=== PATIENT | female | born 1970 | race Two or more races ===

== ENCOUNTER 2021-12-23 13:54 | Inpatient (IN) | END 2022-03-13 23:59 | disposition still patient (30) | DRG 130 | DX: J96.11 Chronic respiratory failure with hypoxia (principal); E43 Unspecified severe protein-calorie malnutrition; G12.21 Amyotrophic lateral sclerosis; R53.2 Functional quadriplegia; D68.59 Other primary thrombophilia; J96.12 Chronic respiratory failure with hypercapnia; B96.20 Unspecified Escherichia coli [E. coli] as the cause of diseases classified elsewhere; B96.4 Proteus (mirabilis) (morganii) as the cause of diseases classified elsewhere; B96.89 Other specified bacterial agents as the cause of diseases classified elsewhere; F41.0 Panic disorder [episodic paroxysmal anxiety]; I51.7 Cardiomegaly; L60.0 Ingrowing nail; M21.372 Foot drop, left foot; M21.371 Foot drop, right foot; N31.9 Neuromuscular dysfunction of bladder, unspecified; N39.0 Urinary tract infection, site not specified; R13.10 Dysphagia, unspecified; R62.7 Adult failure to thrive; Z20.822 Contact with and (suspected) exposure to COVID-19; Z68.1 Body mass index [BMI] 19.9 or less, adult; Z82.49 Family history of ischemic heart disease and other diseases of the circulatory system; Z83.3 Family history of diabetes mellitus; Z86.718 Personal history of other venous thrombosis and embolism; Z93.0 Tracheostomy status; Z93.1 Gastrostomy status ==

== ENCOUNTER 2022-03-14 | Inpatient (IN) | payer OTHER ==
[~2022-03-14] VITALS: Ht 157.5 cm; Wt 45.8 kg
[2022-03-16] MEDS: IPRATROPIUM BROMIDE 0.5 MG/2.5 ML NEBU NEB SCH ×3 (07:25→19:10)
[2022-03-16] MEDS ORDERED: FLEET ENEMA 133 ML BOTTLE RC PRN (08:30)
[2022-03-16] MEDS ORDERED: HYDROGEN PEROXIDE 3% 118 ML BOTTLE TP PRN (08:30)
[2022-03-16] MEDS ORDERED: ACETAMINOPHEN 650 MG/20 ML UDC- SA PATIENTS-FEVER ONLY GT PRN (08:30)
[2022-03-16] MEDS ORDERED: MAGNESIUM HYDROXIDE 30 ML LIQUID UDC GT PRN (08:30)
[2022-03-16] MEDS ORDERED: BISACODYL 10 MG SUPP.RECT RC PRN (08:30)
[2022-03-16] MEDS: FLUTICASONE PROP NASAL SPRAY 16 GM BOTTLE NS SCH (09:00)
[2022-03-16] MEDS: OLOPATADINE 0.1% OPHT DROP 5 ML BOTTLE EACHEYE SCH ×2 (09:00→17:24)
[2022-03-16] MEDS: DICLOFENAC 1% GEL TP SCH ×4 (09:00→21:32)
[2022-03-16] MEDS: NEOMY/BACITRA/POLYMYXIN B OINT UD PACKET TP SCH ×2 (09:00→21:32)
[2022-03-16] MEDS: ENOXAPARIN SODIUM 40 MG/0.4 ML DISP.SYRIN SQ SCH (09:00)
[2022-03-16] MEDS: POLYVINYL ALCOHOL OPHT DROPS 15 ML BOTTLE EACHEYE SCH ×4 (09:00→21:28)
[2022-03-16] MEDS: REMEDY ESSENTIAL ZINC PASTE 113 GM TP SCH ×2 (09:00→21:32)
[2022-03-16] MEDS: HYDROCODONE/APAP 10-325 MG TABLET GT PRN ×2 (09:00→18:05)
[2022-03-16] MEDS: CHLORHEXIDINE GLUCONATE 15 ML MOUTHWASH MM SCH ×2 (09:00→17:25)
[2022-03-16] MEDS: DOCUSATE SODIUM 100 MG/10 ML LIQUID UDC GT SCH ×2 (09:00→17:25)
[2022-03-16] MEDS: FLUOXETINE HCL 20 MG CAPSULE GT SCH (09:00)
[2022-03-16] MEDS: BACLOFEN 20 MG TABLET GT SCH ×3 (09:00→17:25)
[2022-03-16] MEDS: HYDROGEN PEROXIDE 3% 118 ML BOTTLE TP SCH ×2 (09:16→21:45)
[2022-03-16] MEDS: JEVITY 1.2 1000 ML LIQUID GT PRN (13:06)
[2022-03-16] MEDS ORDERED: IPRATROPIUM BROMIDE 0.5 MG/2.5 ML NEBU NEB SCH (13:30)
[2022-03-16] MEDS: GABAPENTIN 300 MG/6 ML GT SCH ×2 (14:49→21:30)
[2022-03-16] MEDS: RILUZOLE 50 MG GT SCH (17:25)
[2022-03-16] MEDS: hydrOXYzine HCL 25 MG TABLET GT SCH (21:28)
[2022-03-16] MEDS: MELATONIN 3 MG TABLET GT SCH (21:30)
[2022-03-16] MEDS: LORAZEPAM 1 MG TABLET GT PRN (22:00)
[2022-03-17] MEDS: IPRATROPIUM BROMIDE 0.5 MG/2.5 ML NEBU NEB SCH ×4 (00:34→19:38)
[2022-03-17] MEDS: GABAPENTIN 300 MG/6 ML GT SCH ×3 (05:48→21:00)
[2022-03-17] MEDS: OMEPRAZOLE 20 MG CAPSULE.DR GT SCH (05:48)
[2022-03-17] MEDS: RILUZOLE 50 MG GT SCH ×2 (05:48→18:57)
[2022-03-17] MEDS: ENOXAPARIN SODIUM 40 MG/0.4 ML DISP.SYRIN SQ SCH (09:00)
[2022-03-17] MEDS: DICLOFENAC 1% GEL TP SCH ×4 (09:00→21:00)
[2022-03-17] MEDS: FLUTICASONE PROP NASAL SPRAY 16 GM BOTTLE NS SCH (09:00)
[2022-03-17] MEDS: BACLOFEN 20 MG TABLET GT SCH ×3 (09:00→17:00)
[2022-03-17] MEDS: HYDROGEN PEROXIDE 3% 118 ML BOTTLE TP SCH ×2 (09:00→19:38)
[2022-03-17] MEDS: DOCUSATE SODIUM 100 MG/10 ML LIQUID UDC GT SCH ×2 (09:00→17:00)
[2022-03-17] MEDS: NEOMY/BACITRA/POLYMYXIN B OINT UD PACKET TP SCH ×2 (09:00→21:00)
[2022-03-17] MEDS: FLUOXETINE HCL 20 MG CAPSULE GT SCH (09:00)
[2022-03-17] MEDS: REMEDY ESSENTIAL ZINC PASTE 113 GM TP SCH ×2 (09:00→21:00)
[2022-03-17] MEDS: CHLORHEXIDINE GLUCONATE 15 ML MOUTHWASH MM SCH ×2 (09:00→17:00)
[2022-03-17] MEDS: POLYVINYL ALCOHOL OPHT DROPS 15 ML BOTTLE EACHEYE SCH ×4 (09:00→21:00)
[2022-03-17] MEDS: OLOPATADINE 0.1% OPHT DROP 5 ML BOTTLE EACHEYE SCH ×2 (10:00→17:00)
[2022-03-17] MEDS: HYDROCODONE/APAP 10-325 MG TABLET GT PRN (10:34)
[2022-03-17] MEDS: hydrOXYzine HCL 25 MG TABLET GT SCH (21:00)
[2022-03-17] MEDS: MELATONIN 3 MG TABLET GT SCH (21:00)
[2022-03-17] MEDS: LORAZEPAM 1 MG TABLET GT PRN (22:00)
[2022-03-18] MEDS: IPRATROPIUM BROMIDE 0.5 MG/2.5 ML NEBU NEB SCH ×4 (01:05→19:26)
[2022-03-18] MEDS: RILUZOLE 50 MG GT SCH ×2 (06:45→18:01)
[2022-03-18] MEDS: OMEPRAZOLE 20 MG CAPSULE.DR GT SCH (06:45)
[2022-03-18] MEDS: GABAPENTIN 300 MG/6 ML GT SCH ×3 (06:45→21:35)
[2022-03-18 07:16] LABS: HEMATOCRIT 34.6 % (31.2-41.9); MEAN CORPUSCULAR HEMOGLOBIN 31.9 uug (24.7-32.8); MEAN CORPUSCULAR VOLUME 93.6 fL (75.5-95.3); PLATELET COUNT (AUTO) 227 K/uL (179-408)
[2022-03-18 07:36] LABS: THYROID STIMULATING HORMONE 1.705 mIU/mL (0.358-3.740)
[2022-03-18 07:55] LABS: ALANINE AMINOTRANSFERASE 33 U/L (14-59); ALKALINE PHOSPHATASE 96 U/L (50-136); ASPARTATE AMINOTRANSFERASE 27 U/L (15-37); BILIRUBIN,TOTAL 0.4 mg/dL (0.2-1.0); CARBON DIOXIDE 34 mmol/L (21-32); CHLORIDE 98 mmol/L (98-107); CHOLESTEROL 236 mg/dL (<200); CREATININE 0.4 mg/dL (0.6-1.3); GLUCOSE 107 mg/dL (74-106); HDL CHOLESTEROL 49 mg/dL (40-60); MAGNESIUM 2.2 mg/dL (1.8-2.4); PHOSPHOROUS 4.5 mg/dL (2.5-4.9); POTASSIUM 3.9 mmol/L (3.5-5.1); TOTAL PROTEIN, SERUM 7.3 g/dL (6.4-8.2); TRIGLYCERIDES 267 MG/DL (30-150); UREA NITROGEN, BLOOD 15 mg/dL (7-18)
[2022-03-18] MEDS: POLYVINYL ALCOHOL OPHT DROPS 15 ML BOTTLE EACHEYE SCH ×4 (09:41→21:35)
[2022-03-18] MEDS: FLUTICASONE PROP NASAL SPRAY 16 GM BOTTLE NS SCH (09:42)
[2022-03-18] MEDS: OLOPATADINE 0.1% OPHT DROP 5 ML BOTTLE EACHEYE SCH ×2 (09:42→17:59)
[2022-03-18] MEDS: DOCUSATE SODIUM 100 MG/10 ML LIQUID UDC GT SCH ×2 (09:42→17:59)
[2022-03-18] MEDS: BACLOFEN 20 MG TABLET GT SCH ×3 (09:42→17:00)
[2022-03-18] MEDS: FLUOXETINE HCL 20 MG CAPSULE GT SCH (09:42)
[2022-03-18] MEDS: CHLORHEXIDINE GLUCONATE 15 ML MOUTHWASH MM SCH ×2 (09:42→17:00)
[2022-03-18] MEDS: NEOMY/BACITRA/POLYMYXIN B OINT UD PACKET TP SCH ×2 (09:43→21:35)
[2022-03-18] MEDS: REMEDY ESSENTIAL ZINC PASTE 113 GM TP SCH ×2 (09:43→21:35)
[2022-03-18] MEDS: ENOXAPARIN SODIUM 40 MG/0.4 ML DISP.SYRIN SQ SCH (09:43)
[2022-03-18] MEDS: DICLOFENAC 1% GEL TP SCH ×4 (09:43→21:35)
[2022-03-18] MEDS: HYDROGEN PEROXIDE 3% 118 ML BOTTLE TP SCH ×2 (09:53→21:40)
[2022-03-18] MEDS: HYDROCODONE/APAP 10-325 MG TABLET GT PRN (18:02)
[2022-03-18] MEDS: JEVITY 1.2 1000 ML LIQUID GT PRN (21:33)
[2022-03-18] MEDS: LORAZEPAM 1 MG TABLET GT PRN (21:35)
[2022-03-18] MEDS: hydrOXYzine HCL 25 MG TABLET GT SCH (21:35)
[2022-03-18] MEDS: MELATONIN 3 MG TABLET GT SCH (21:35)
[2022-03-19] MEDS: IPRATROPIUM BROMIDE 0.5 MG/2.5 ML NEBU NEB SCH ×4 (01:30→19:24)
[2022-03-19] MEDS: OMEPRAZOLE 20 MG CAPSULE.DR GT SCH (05:37)
[2022-03-19] MEDS: RILUZOLE 50 MG GT SCH ×2 (05:37→17:31)
[2022-03-19] MEDS: GABAPENTIN 300 MG/6 ML GT SCH ×3 (05:37→21:53)
[2022-03-19] MEDS: BACLOFEN 20 MG TABLET GT SCH ×3 (08:29→17:30)
[2022-03-19] MEDS: OLOPATADINE 0.1% OPHT DROP 5 ML BOTTLE EACHEYE SCH ×2 (08:29→17:30)
[2022-03-19] MEDS: POLYVINYL ALCOHOL OPHT DROPS 15 ML BOTTLE EACHEYE SCH ×4 (08:29→21:53)
[2022-03-19] MEDS: FLUOXETINE HCL 20 MG CAPSULE GT SCH (08:29)
[2022-03-19] MEDS: DOCUSATE SODIUM 100 MG/10 ML LIQUID UDC GT SCH ×2 (08:29→17:00)
[2022-03-19] MEDS: HYDROCODONE/APAP 10-325 MG TABLET GT PRN ×2 (08:30→17:35)
[2022-03-19] MEDS: FLUTICASONE PROP NASAL SPRAY 16 GM BOTTLE NS SCH (08:30)
[2022-03-19] MEDS: ENOXAPARIN SODIUM 40 MG/0.4 ML DISP.SYRIN SQ SCH (08:32)
[2022-03-19] MEDS: NEOMY/BACITRA/POLYMYXIN B OINT UD PACKET TP SCH ×2 (09:00→21:53)
[2022-03-19] MEDS: REMEDY ESSENTIAL ZINC PASTE 113 GM TP SCH ×2 (09:00→21:53)
[2022-03-19] MEDS: CHLORHEXIDINE GLUCONATE 15 ML MOUTHWASH MM SCH ×2 (09:00→17:30)
[2022-03-19] MEDS: DICLOFENAC 1% GEL TP SCH ×4 (09:00→21:53)
[2022-03-19] MEDS: HYDROGEN PEROXIDE 3% 118 ML BOTTLE TP SCH ×2 (09:17→21:55)
[2022-03-19] MEDS: LORAZEPAM 1 MG TABLET GT PRN (21:53)
[2022-03-19] MEDS: MELATONIN 3 MG TABLET GT SCH (21:53)
[2022-03-19] MEDS: JEVITY 1.2 1000 ML LIQUID GT PRN (21:53)
[2022-03-19] MEDS: hydrOXYzine HCL 25 MG TABLET GT SCH (21:53)
[2022-03-20] MEDS: IPRATROPIUM BROMIDE 0.5 MG/2.5 ML NEBU NEB SCH ×4 (01:49→19:23)
[2022-03-20] MEDS: GABAPENTIN 300 MG/6 ML GT SCH ×3 (05:19→21:45)
[2022-03-20] MEDS: RILUZOLE 50 MG GT SCH ×2 (05:19→17:43)
[2022-03-20] MEDS: OMEPRAZOLE 20 MG CAPSULE.DR GT SCH (05:19)
[2022-03-20] MEDS: HYDROGEN PEROXIDE 3% 118 ML BOTTLE TP SCH ×2 (08:46→21:57)
[2022-03-20] MEDS: POLYVINYL ALCOHOL OPHT DROPS 15 ML BOTTLE EACHEYE SCH ×4 (09:06→21:39)
[2022-03-20] MEDS: HYDROCODONE/APAP 10-325 MG TABLET GT PRN ×2 (09:10→18:56)
[2022-03-20] MEDS: OLOPATADINE 0.1% OPHT DROP 5 ML BOTTLE EACHEYE SCH ×2 (09:10→17:40)
[2022-03-20] MEDS: DOCUSATE SODIUM 100 MG/10 ML LIQUID UDC GT SCH ×2 (09:11→17:00)
[2022-03-20] MEDS: FLUOXETINE HCL 20 MG CAPSULE GT SCH (09:11)
[2022-03-20] MEDS: CHLORHEXIDINE GLUCONATE 15 ML MOUTHWASH MM SCH ×2 (09:11→17:41)
[2022-03-20] MEDS: BACLOFEN 20 MG TABLET GT SCH ×3 (09:11→17:41)
[2022-03-20] MEDS: FLUTICASONE PROP NASAL SPRAY 16 GM BOTTLE NS SCH (09:12)
[2022-03-20] MEDS: ENOXAPARIN SODIUM 40 MG/0.4 ML DISP.SYRIN SQ SCH (09:15)
[2022-03-20] MEDS: REMEDY ESSENTIAL ZINC PASTE 113 GM TP SCH ×2 (09:16→21:45)
[2022-03-20] MEDS: NEOMY/BACITRA/POLYMYXIN B OINT UD PACKET TP SCH ×2 (09:16→21:45)
[2022-03-20] MEDS: DICLOFENAC 1% GEL TP SCH ×4 (09:16→21:45)
[2022-03-20] MEDS: JEVITY 1.2 1000 ML LIQUID GT PRN (18:12)
[2022-03-20] MEDS: hydrOXYzine HCL 25 MG TABLET GT SCH (21:40)
[2022-03-20] MEDS: MELATONIN 3 MG TABLET GT SCH (21:45)
[2022-03-21] MEDS: IPRATROPIUM BROMIDE 0.5 MG/2.5 ML NEBU NEB SCH ×4 (00:36→13:35)
[2022-03-21] MEDS: OMEPRAZOLE 20 MG CAPSULE.DR GT SCH (05:54)
[2022-03-21] MEDS: RILUZOLE 50 MG GT SCH ×2 (05:54→17:56)
[2022-03-21] MEDS: GABAPENTIN 300 MG/6 ML GT SCH ×3 (05:54→21:00)
[2022-03-21] MEDS: HYDROGEN PEROXIDE 3% 118 ML BOTTLE TP SCH ×2 (09:29→21:00)
[2022-03-21] MEDS: OLOPATADINE 0.1% OPHT DROP 5 ML BOTTLE EACHEYE SCH ×2 (09:35→17:56)
[2022-03-21] MEDS: CHLORHEXIDINE GLUCONATE 15 ML MOUTHWASH MM SCH ×2 (09:35→17:56)
[2022-03-21] MEDS: BACLOFEN 20 MG TABLET GT SCH ×3 (09:35→17:56)
[2022-03-21] MEDS: DOCUSATE SODIUM 100 MG/10 ML LIQUID UDC GT SCH ×2 (09:35→17:56)
[2022-03-21] MEDS: FLUOXETINE HCL 20 MG CAPSULE GT SCH (09:35)
[2022-03-21] MEDS: POLYVINYL ALCOHOL OPHT DROPS 15 ML BOTTLE EACHEYE SCH ×4 (09:35→21:00)
[2022-03-21] MEDS: FLUTICASONE PROP NASAL SPRAY 16 GM BOTTLE NS SCH (09:35)
[2022-03-21] MEDS: REMEDY ESSENTIAL ZINC PASTE 113 GM TP SCH ×2 (09:36→21:00)
[2022-03-21] MEDS: DICLOFENAC 1% GEL TP SCH ×4 (09:36→21:00)
[2022-03-21] MEDS: ENOXAPARIN SODIUM 40 MG/0.4 ML DISP.SYRIN SQ SCH (09:36)
[2022-03-21] MEDS: NEOMY/BACITRA/POLYMYXIN B OINT UD PACKET TP SCH ×2 (09:36→21:00)
[2022-03-21] MEDS: HYDROCODONE/APAP 10-325 MG TABLET GT PRN ×2 (09:43→17:56)
[2022-03-21] MEDS: JEVITY 1.2 1000 ML LIQUID GT PRN (16:25)
[2022-03-21] MEDS: MELATONIN 3 MG TABLET GT SCH (21:00)
[2022-03-21] MEDS: hydrOXYzine HCL 25 MG TABLET GT SCH (21:00)
[2022-03-21] MEDS: LORAZEPAM 1 MG TABLET GT PRN (23:18)
[2022-03-22] MEDS: IPRATROPIUM BROMIDE 0.5 MG/2.5 ML NEBU NEB SCH ×4 (01:55→19:37)
[2022-03-22] MEDS: GABAPENTIN 300 MG/6 ML GT SCH ×3 (06:48→21:36)
[2022-03-22] MEDS: OMEPRAZOLE 20 MG CAPSULE.DR GT SCH (06:49)
[2022-03-22] MEDS: RILUZOLE 50 MG GT SCH ×2 (06:49→18:17)
[2022-03-22] MEDS: DICLOFENAC 1% GEL TP SCH ×4 (09:00→21:37)
[2022-03-22] MEDS: POLYVINYL ALCOHOL OPHT DROPS 15 ML BOTTLE EACHEYE SCH ×4 (09:00→21:41)
[2022-03-22] MEDS: CHLORHEXIDINE GLUCONATE 15 ML MOUTHWASH MM SCH ×2 (09:00→17:13)
[2022-03-22] MEDS: BACLOFEN 20 MG TABLET GT SCH ×3 (09:00→17:13)
[2022-03-22] MEDS: ENOXAPARIN SODIUM 40 MG/0.4 ML DISP.SYRIN SQ SCH (09:00)
[2022-03-22] MEDS: OLOPATADINE 0.1% OPHT DROP 5 ML BOTTLE EACHEYE SCH ×2 (09:00→17:12)
[2022-03-22] MEDS: FLUTICASONE PROP NASAL SPRAY 16 GM BOTTLE NS SCH (09:00)
[2022-03-22] MEDS: NEOMY/BACITRA/POLYMYXIN B OINT UD PACKET TP SCH ×2 (09:00→21:37)
[2022-03-22] MEDS: DOCUSATE SODIUM 100 MG/10 ML LIQUID UDC GT SCH ×2 (09:00→17:13)
[2022-03-22] MEDS: REMEDY ESSENTIAL ZINC PASTE 113 GM TP SCH ×2 (09:00→21:37)
[2022-03-22] MEDS: FLUOXETINE HCL 20 MG CAPSULE GT SCH (09:00)
[2022-03-22] MEDS: HYDROGEN PEROXIDE 3% 118 ML BOTTLE TP SCH ×2 (09:59→21:00)
[2022-03-22] MEDS: hydrOXYzine HCL 25 MG TABLET GT SCH (21:36)
[2022-03-22] MEDS: MELATONIN 3 MG TABLET GT SCH (21:37)
[2022-03-22] MEDS: LORAZEPAM 1 MG TABLET GT PRN (21:39)
[2022-03-23] MEDS: IPRATROPIUM BROMIDE 0.5 MG/2.5 ML NEBU NEB SCH ×4 (01:35→20:11)
[2022-03-23] MEDS: OMEPRAZOLE 20 MG CAPSULE.DR GT SCH (06:00)
[2022-03-23] MEDS: RILUZOLE 50 MG GT SCH ×2 (06:00→17:34)
[2022-03-23] MEDS: GABAPENTIN 300 MG/6 ML GT SCH ×3 (06:00→21:26)
[2022-03-23] MEDS: HYDROGEN PEROXIDE 3% 118 ML BOTTLE TP SCH ×2 (07:43→20:11)
[2022-03-23] MEDS: DOCUSATE SODIUM 100 MG/10 ML LIQUID UDC GT SCH ×2 (09:00→17:00)
[2022-03-23] MEDS: POLYVINYL ALCOHOL OPHT DROPS 15 ML BOTTLE EACHEYE SCH ×4 (09:01→21:25)
[2022-03-23] MEDS: OLOPATADINE 0.1% OPHT DROP 5 ML BOTTLE EACHEYE SCH ×2 (09:01→17:34)
[2022-03-23] MEDS: HYDROCODONE/APAP 10-325 MG TABLET GT PRN ×2 (09:01→17:30)
[2022-03-23] MEDS: CHLORHEXIDINE GLUCONATE 15 ML MOUTHWASH MM SCH ×2 (09:02→17:34)
[2022-03-23] MEDS: FLUOXETINE HCL 20 MG CAPSULE GT SCH (09:02)
[2022-03-23] MEDS: BACLOFEN 20 MG TABLET GT SCH ×3 (09:02→17:34)
[2022-03-23] MEDS: FLUTICASONE PROP NASAL SPRAY 16 GM BOTTLE NS SCH (09:02)
[2022-03-23] MEDS: NEOMY/BACITRA/POLYMYXIN B OINT UD PACKET TP SCH ×2 (09:03→21:26)
[2022-03-23] MEDS: REMEDY ESSENTIAL ZINC PASTE 113 GM TP SCH ×2 (09:03→21:26)
[2022-03-23] MEDS: DICLOFENAC 1% GEL TP SCH ×4 (09:03→21:26)
[2022-03-23] MEDS: ENOXAPARIN SODIUM 40 MG/0.4 ML DISP.SYRIN SQ SCH (09:04)
[2022-03-23] MEDS: JEVITY 1.2 1000 ML LIQUID GT PRN (10:28)
[2022-03-23] MEDS: ONDANSETRON HCL 4 MG TABLET GT PRN (17:44)
[2022-03-23] MEDS: LORAZEPAM 1 MG TABLET GT PRN (21:26)
[2022-03-23] MEDS: MELATONIN 3 MG TABLET GT SCH (21:26)
[2022-03-23] MEDS: hydrOXYzine HCL 25 MG TABLET GT SCH (21:26)
[2022-03-24] MEDS: IPRATROPIUM BROMIDE 0.5 MG/2.5 ML NEBU NEB SCH ×3 (01:04→19:28)
[2022-03-24] MEDS: JEVITY 1.2 1000 ML LIQUID GT PRN (06:00)
[2022-03-24] MEDS: OMEPRAZOLE 20 MG CAPSULE.DR GT SCH (06:54)
[2022-03-24] MEDS: GABAPENTIN 300 MG/6 ML GT SCH ×3 (06:54→21:31)
[2022-03-24] MEDS: RILUZOLE 50 MG GT SCH ×2 (06:54→17:28)
[2022-03-24] MEDS: DOCUSATE SODIUM 100 MG/10 ML LIQUID UDC GT SCH ×2 (09:00→17:00)
[2022-03-24] MEDS: OLOPATADINE 0.1% OPHT DROP 5 ML BOTTLE EACHEYE SCH ×2 (09:10→17:27)
[2022-03-24] MEDS: POLYVINYL ALCOHOL OPHT DROPS 15 ML BOTTLE EACHEYE SCH ×4 (09:10→21:30)
[2022-03-24] MEDS: BACLOFEN 20 MG TABLET GT SCH ×3 (09:10→17:27)
[2022-03-24] MEDS: FLUTICASONE PROP NASAL SPRAY 16 GM BOTTLE NS SCH (09:10)
[2022-03-24] MEDS: FLUOXETINE HCL 20 MG CAPSULE GT SCH (09:10)
[2022-03-24] MEDS: CHLORHEXIDINE GLUCONATE 15 ML MOUTHWASH MM SCH ×2 (09:10→17:27)
[2022-03-24] MEDS: HYDROGEN PEROXIDE 3% 118 ML BOTTLE TP SCH ×2 (09:11→21:33)
[2022-03-24] MEDS: ENOXAPARIN SODIUM 40 MG/0.4 ML DISP.SYRIN SQ SCH (09:14)
[2022-03-24] MEDS: DICLOFENAC 1% GEL TP SCH ×4 (09:14→21:33)
[2022-03-24] MEDS: NEOMY/BACITRA/POLYMYXIN B OINT UD PACKET TP SCH ×2 (09:15→21:33)
[2022-03-24] MEDS: REMEDY ESSENTIAL ZINC PASTE 113 GM TP SCH ×2 (09:15→21:33)
[2022-03-24] MEDS: HYDROCODONE/APAP 10-325 MG TABLET GT PRN ×2 (09:15→18:20)
[2022-03-24] MEDS: LORAZEPAM 1 MG TABLET GT PRN (21:00)
[2022-03-24] MEDS: hydrOXYzine HCL 25 MG TABLET GT SCH (21:30)
[2022-03-24] MEDS: MELATONIN 3 MG TABLET GT SCH (21:32)
[2022-03-25] MEDS: IPRATROPIUM BROMIDE 0.5 MG/2.5 ML NEBU NEB SCH ×4 (00:39→19:45)
[2022-03-25] MEDS: RILUZOLE 50 MG GT SCH ×2 (05:38→18:12)
[2022-03-25] MEDS: OMEPRAZOLE 20 MG CAPSULE.DR GT SCH (05:38)
[2022-03-25] MEDS: GABAPENTIN 300 MG/6 ML GT SCH ×3 (05:38→20:57)
[2022-03-25] MEDS: JEVITY 1.2 1000 ML LIQUID GT PRN (05:40)
[2022-03-25] MEDS: HYDROGEN PEROXIDE 3% 118 ML BOTTLE TP SCH ×2 (08:01→21:00)
[2022-03-25] MEDS: ENOXAPARIN SODIUM 40 MG/0.4 ML DISP.SYRIN SQ SCH (08:54)
[2022-03-25] MEDS: DOCUSATE SODIUM 100 MG/10 ML LIQUID UDC GT SCH ×2 (09:00→17:00)
[2022-03-25] MEDS: POLYVINYL ALCOHOL OPHT DROPS 15 ML BOTTLE EACHEYE SCH ×4 (09:04→20:57)
[2022-03-25] MEDS: OLOPATADINE 0.1% OPHT DROP 5 ML BOTTLE EACHEYE SCH ×2 (09:04→17:00)
[2022-03-25] MEDS: REMEDY ESSENTIAL ZINC PASTE 113 GM TP SCH ×2 (09:05→20:57)
[2022-03-25] MEDS: BACLOFEN 20 MG TABLET GT SCH ×3 (09:05→17:00)
[2022-03-25] MEDS: FLUOXETINE HCL 20 MG CAPSULE GT SCH (09:05)
[2022-03-25] MEDS: CHLORHEXIDINE GLUCONATE 15 ML MOUTHWASH MM SCH ×2 (09:05→17:00)
[2022-03-25] MEDS: FLUTICASONE PROP NASAL SPRAY 16 GM BOTTLE NS SCH (09:05)
[2022-03-25] MEDS: DICLOFENAC 1% GEL TP SCH ×4 (09:05→20:57)
[2022-03-25] MEDS: HYDROCODONE/APAP 10-325 MG TABLET GT PRN ×2 (10:30→17:00)
[2022-03-25] MEDS: LORAZEPAM 1 MG TABLET GT PRN (20:57)
[2022-03-25] MEDS: hydrOXYzine HCL 25 MG TABLET GT SCH (20:57)
[2022-03-25] MEDS: MELATONIN 3 MG TABLET GT SCH (20:57)
[2022-03-26] MEDS: IPRATROPIUM BROMIDE 0.5 MG/2.5 ML NEBU NEB SCH ×4 (00:40→19:20)
[2022-03-26] MEDS: RILUZOLE 50 MG GT SCH ×2 (05:37→18:11)
[2022-03-26] MEDS: OMEPRAZOLE 20 MG CAPSULE.DR GT SCH (05:37)
[2022-03-26] MEDS: GABAPENTIN 300 MG/6 ML GT SCH ×3 (05:37→21:14)
[2022-03-26] MEDS: JEVITY 1.2 1000 ML LIQUID GT PRN (05:38)
[2022-03-26] MEDS: LORAZEPAM 1 MG TABLET GT PRN ×2 (05:38→22:15)
[2022-03-26] MEDS: HYDROGEN PEROXIDE 3% 118 ML BOTTLE TP SCH ×2 (08:08→21:14)
[2022-03-26] MEDS: DOCUSATE SODIUM 100 MG/10 ML LIQUID UDC GT SCH ×2 (09:00→17:00)
[2022-03-26] MEDS: HYDROCODONE/APAP 10-325 MG TABLET GT PRN ×2 (09:30→17:00)
[2022-03-26] MEDS: POLYVINYL ALCOHOL OPHT DROPS 15 ML BOTTLE EACHEYE SCH ×4 (09:50→21:14)
[2022-03-26] MEDS: FLUOXETINE HCL 20 MG CAPSULE GT SCH (09:51)
[2022-03-26] MEDS: FLUTICASONE PROP NASAL SPRAY 16 GM BOTTLE NS SCH (09:51)
[2022-03-26] MEDS: ENOXAPARIN SODIUM 40 MG/0.4 ML DISP.SYRIN SQ SCH (09:51)
[2022-03-26] MEDS: DICLOFENAC 1% GEL TP SCH ×4 (09:51→21:14)
[2022-03-26] MEDS: REMEDY ESSENTIAL ZINC PASTE 113 GM TP SCH ×2 (09:51→21:15)
[2022-03-26] MEDS: OLOPATADINE 0.1% OPHT DROP 5 ML BOTTLE EACHEYE SCH ×2 (09:51→16:37)
[2022-03-26] MEDS: BACLOFEN 20 MG TABLET GT SCH ×3 (09:51→17:00)
[2022-03-26] MEDS: CHLORHEXIDINE GLUCONATE 15 ML MOUTHWASH MM SCH ×2 (09:51→17:00)
[2022-03-26] MEDS: hydrOXYzine HCL 25 MG TABLET GT SCH (21:14)
[2022-03-26] MEDS: MELATONIN 3 MG TABLET GT SCH (21:14)
[2022-03-27] MEDS: IPRATROPIUM BROMIDE 0.5 MG/2.5 ML NEBU NEB SCH ×4 (00:50→19:49)
[2022-03-27] MEDS: GABAPENTIN 300 MG/6 ML GT SCH ×3 (06:19→21:00)
[2022-03-27] MEDS: OMEPRAZOLE 20 MG CAPSULE.DR GT SCH (06:19)
[2022-03-27] MEDS: RILUZOLE 50 MG GT SCH ×2 (06:20→18:07)
[2022-03-27] MEDS: HYDROGEN PEROXIDE 3% 118 ML BOTTLE TP SCH ×2 (08:01→21:12)
[2022-03-27] MEDS: POLYVINYL ALCOHOL OPHT DROPS 15 ML BOTTLE EACHEYE SCH ×4 (09:27→21:00)
[2022-03-27] MEDS: DOCUSATE SODIUM 100 MG/10 ML LIQUID UDC GT SCH ×2 (09:27→17:00)
[2022-03-27] MEDS: OLOPATADINE 0.1% OPHT DROP 5 ML BOTTLE EACHEYE SCH ×2 (09:27→17:00)
[2022-03-27] MEDS: FLUOXETINE HCL 20 MG CAPSULE GT SCH (09:28)
[2022-03-27] MEDS: CHLORHEXIDINE GLUCONATE 15 ML MOUTHWASH MM SCH ×2 (09:28→17:00)
[2022-03-27] MEDS: FLUTICASONE PROP NASAL SPRAY 16 GM BOTTLE NS SCH (09:28)
[2022-03-27] MEDS: BACLOFEN 20 MG TABLET GT SCH ×3 (09:28→17:00)
[2022-03-27] MEDS: ENOXAPARIN SODIUM 40 MG/0.4 ML DISP.SYRIN SQ SCH (09:32)
[2022-03-27] MEDS: REMEDY ESSENTIAL ZINC PASTE 113 GM TP SCH ×2 (09:33→21:00)
[2022-03-27] MEDS: DICLOFENAC 1% GEL TP SCH ×4 (09:33→21:00)
[2022-03-27] MEDS: JEVITY 1.2 1000 ML LIQUID GT PRN (09:33)
[2022-03-27] MEDS: HYDROCODONE/APAP 10-325 MG TABLET GT PRN ×2 (09:37→18:09)
[2022-03-27] MEDS: hydrOXYzine HCL 25 MG TABLET GT SCH (21:00)
[2022-03-27] MEDS: MELATONIN 3 MG TABLET GT SCH (21:00)
[2022-03-27] MEDS: LORAZEPAM 1 MG TABLET GT PRN (22:07)
[2022-03-28] MEDS: IPRATROPIUM BROMIDE 0.5 MG/2.5 ML NEBU NEB SCH ×4 (00:38→19:35)
[2022-03-28] MEDS: OMEPRAZOLE 20 MG CAPSULE.DR GT SCH (06:43)
[2022-03-28] MEDS: RILUZOLE 50 MG GT SCH ×2 (06:43→17:57)
[2022-03-28] MEDS: GABAPENTIN 300 MG/6 ML GT SCH ×3 (06:43→21:17)
[2022-03-28] MEDS: POLYVINYL ALCOHOL OPHT DROPS 15 ML BOTTLE EACHEYE SCH ×4 (08:32→21:16)
[2022-03-28] MEDS: FLUOXETINE HCL 20 MG CAPSULE GT SCH (08:33)
[2022-03-28] MEDS: OLOPATADINE 0.1% OPHT DROP 5 ML BOTTLE EACHEYE SCH ×2 (08:33→17:57)
[2022-03-28] MEDS: FLUTICASONE PROP NASAL SPRAY 16 GM BOTTLE NS SCH (08:33)
[2022-03-28] MEDS: CHLORHEXIDINE GLUCONATE 15 ML MOUTHWASH MM SCH ×2 (08:33→17:57)
[2022-03-28] MEDS: DOCUSATE SODIUM 100 MG/10 ML LIQUID UDC GT SCH ×2 (08:33→17:00)
[2022-03-28] MEDS: BACLOFEN 20 MG TABLET GT SCH ×3 (08:33→17:57)
[2022-03-28] MEDS: REMEDY ESSENTIAL ZINC PASTE 113 GM TP SCH ×2 (08:34→21:18)
[2022-03-28] MEDS: DICLOFENAC 1% GEL TP SCH ×4 (08:34→21:18)
[2022-03-28] MEDS: ENOXAPARIN SODIUM 40 MG/0.4 ML DISP.SYRIN SQ SCH (08:34)
[2022-03-28] MEDS: HYDROGEN PEROXIDE 3% 118 ML BOTTLE TP SCH ×2 (09:30→21:53)
[2022-03-28] MEDS: HYDROCODONE/APAP 10-325 MG TABLET GT PRN ×2 (11:00→17:58)
[2022-03-28] MEDS: hydrOXYzine HCL 25 MG TABLET GT SCH (21:17)
[2022-03-28] MEDS: MELATONIN 3 MG TABLET GT SCH (21:18)
[2022-03-28] MEDS: LORAZEPAM 1 MG TABLET GT PRN (21:20)
[2022-03-29] MEDS: IPRATROPIUM BROMIDE 0.5 MG/2.5 ML NEBU NEB SCH ×4 (00:35→18:56)
[2022-03-29] MEDS: OMEPRAZOLE 20 MG CAPSULE.DR GT SCH (05:30)
[2022-03-29] MEDS: GABAPENTIN 300 MG/6 ML GT SCH ×3 (05:30→21:10)
[2022-03-29] MEDS: RILUZOLE 50 MG GT SCH ×2 (05:31→17:49)
[2022-03-29] MEDS: HYDROGEN PEROXIDE 3% 118 ML BOTTLE TP SCH ×2 (07:24→21:27)
[2022-03-29] MEDS: DOCUSATE SODIUM 100 MG/10 ML LIQUID UDC GT SCH ×2 (09:00→17:00)
[2022-03-29] MEDS: POLYVINYL ALCOHOL OPHT DROPS 15 ML BOTTLE EACHEYE SCH ×4 (09:24→21:11)
[2022-03-29] MEDS: OLOPATADINE 0.1% OPHT DROP 5 ML BOTTLE EACHEYE SCH ×2 (09:24→17:47)
[2022-03-29] MEDS: CHLORHEXIDINE GLUCONATE 15 ML MOUTHWASH MM SCH ×2 (09:25→17:49)
[2022-03-29] MEDS: FLUTICASONE PROP NASAL SPRAY 16 GM BOTTLE NS SCH (09:25)
[2022-03-29] MEDS: BACLOFEN 20 MG TABLET GT SCH ×3 (09:25→17:49)
[2022-03-29] MEDS: FLUOXETINE HCL 20 MG CAPSULE GT SCH (09:25)
[2022-03-29] MEDS: ENOXAPARIN SODIUM 40 MG/0.4 ML DISP.SYRIN SQ SCH (09:26)
[2022-03-29] MEDS: DICLOFENAC 1% GEL TP SCH ×4 (09:26→21:10)
[2022-03-29] MEDS: REMEDY ESSENTIAL ZINC PASTE 113 GM TP SCH ×2 (09:26→21:10)
[2022-03-29] MEDS: HYDROCODONE/APAP 10-325 MG TABLET GT PRN ×3 (09:29→21:20)
[2022-03-29] MEDS: hydrOXYzine HCL 25 MG TABLET GT SCH (21:10)
[2022-03-29] MEDS: MELATONIN 3 MG TABLET GT SCH (21:10)
[2022-03-30] MEDS: IPRATROPIUM BROMIDE 0.5 MG/2.5 ML NEBU NEB SCH ×4 (00:35→19:27)
[2022-03-30] MEDS: OMEPRAZOLE 20 MG CAPSULE.DR GT SCH (06:00)
[2022-03-30] MEDS: RILUZOLE 50 MG GT SCH ×2 (06:00→17:29)
[2022-03-30] MEDS: GABAPENTIN 300 MG/6 ML GT SCH ×3 (06:00→21:46)
[2022-03-30] MEDS: HYDROGEN PEROXIDE 3% 118 ML BOTTLE TP SCH ×2 (07:22→19:27)
[2022-03-30] MEDS: LORAZEPAM 1 MG TABLET GT PRN ×2 (08:35→21:00)
[2022-03-30] MEDS: FLUOXETINE HCL 20 MG CAPSULE GT SCH (08:44)
[2022-03-30] MEDS: DOCUSATE SODIUM 100 MG/10 ML LIQUID UDC GT SCH ×2 (08:44→17:00)
[2022-03-30] MEDS: OLOPATADINE 0.1% OPHT DROP 5 ML BOTTLE EACHEYE SCH ×2 (08:44→17:36)
[2022-03-30] MEDS: CHLORHEXIDINE GLUCONATE 15 ML MOUTHWASH MM SCH ×2 (08:44→17:27)
[2022-03-30] MEDS: BACLOFEN 20 MG TABLET GT SCH ×3 (08:44→17:27)
[2022-03-30] MEDS: FLUTICASONE PROP NASAL SPRAY 16 GM BOTTLE NS SCH (08:44)
[2022-03-30] MEDS: REMEDY ESSENTIAL ZINC PASTE 113 GM TP SCH ×2 (08:55→21:47)
[2022-03-30] MEDS: DICLOFENAC 1% GEL TP SCH ×4 (08:55→21:47)
[2022-03-30] MEDS: ENOXAPARIN SODIUM 40 MG/0.4 ML DISP.SYRIN SQ SCH (08:55)
[2022-03-30] MEDS: POLYVINYL ALCOHOL OPHT DROPS 15 ML BOTTLE EACHEYE SCH ×4 (09:00→21:46)
[2022-03-30] MEDS: HYDROCODONE/APAP 10-325 MG TABLET GT PRN ×2 (10:59→17:30)
[2022-03-30] MEDS: ATORVASTATIN 20 MG TABLET GT SCH (21:46)
[2022-03-30] MEDS: MELATONIN 3 MG TABLET GT SCH (21:46)
[2022-03-30] MEDS: hydrOXYzine HCL 25 MG TABLET GT SCH (21:46)
[2022-03-31] MEDS: IPRATROPIUM BROMIDE 0.5 MG/2.5 ML NEBU NEB SCH ×4 (01:20→19:43)
[2022-03-31] MEDS: GABAPENTIN 300 MG/6 ML GT SCH ×3 (05:12→21:20)
[2022-03-31] MEDS: RILUZOLE 50 MG GT SCH ×2 (05:12→17:14)
[2022-03-31] MEDS: OMEPRAZOLE 20 MG CAPSULE.DR GT SCH (05:12)
[2022-03-31] MEDS: POLYVINYL ALCOHOL OPHT DROPS 15 ML BOTTLE EACHEYE SCH ×4 (08:49→21:20)
[2022-03-31] MEDS: FLUTICASONE PROP NASAL SPRAY 16 GM BOTTLE NS SCH (08:50)
[2022-03-31] MEDS: FLUOXETINE HCL 20 MG CAPSULE GT SCH (08:50)
[2022-03-31] MEDS: BACLOFEN 20 MG TABLET GT SCH ×3 (08:50→17:14)
[2022-03-31] MEDS: CHLORHEXIDINE GLUCONATE 15 ML MOUTHWASH MM SCH ×2 (08:50→17:14)
[2022-03-31] MEDS: REMEDY ESSENTIAL ZINC PASTE 113 GM TP SCH ×2 (08:57→21:21)
[2022-03-31] MEDS: ENOXAPARIN SODIUM 40 MG/0.4 ML DISP.SYRIN SQ SCH (08:57)
[2022-03-31] MEDS: DICLOFENAC 1% GEL TP SCH ×4 (08:57→21:20)
[2022-03-31] MEDS: OLOPATADINE 0.1% OPHT DROP 5 ML BOTTLE EACHEYE SCH ×2 (08:57→17:20)
[2022-03-31] MEDS: HYDROCODONE/APAP 10-325 MG TABLET GT PRN ×2 (09:02→17:23)
[2022-03-31] MEDS: HYDROGEN PEROXIDE 3% 118 ML BOTTLE TP SCH ×2 (09:25→19:44)
[2022-03-31] MEDS: LORATADINE 10 MG TABLET GT SCH (09:55)
[2022-03-31] MEDS: LORAZEPAM 1 MG TABLET GT PRN (21:00)
[2022-03-31] MEDS: hydrOXYzine HCL 25 MG TABLET GT SCH (21:20)
[2022-03-31] MEDS: MELATONIN 3 MG TABLET GT SCH (21:20)
[2022-03-31] MEDS: DOCUSATE SODIUM 100 MG/10 ML LIQUID UDC GT SCH (21:20)
[2022-03-31] MEDS: ATORVASTATIN 20 MG TABLET GT SCH (21:20)
[2022-04-01] MEDS: IPRATROPIUM BROMIDE 0.5 MG/2.5 ML NEBU NEB SCH ×4 (00:30→19:13)
[2022-04-01] MEDS: OMEPRAZOLE 20 MG CAPSULE.DR GT SCH (05:03)
[2022-04-01] MEDS: GABAPENTIN 300 MG/6 ML GT SCH ×3 (05:03→21:32)
[2022-04-01] MEDS: RILUZOLE 50 MG GT SCH ×2 (05:04→17:17)
[2022-04-01] MEDS: HYDROGEN PEROXIDE 3% 118 ML BOTTLE TP SCH ×2 (07:29→19:13)
[2022-04-01] MEDS: POLYVINYL ALCOHOL OPHT DROPS 15 ML BOTTLE EACHEYE SCH ×4 (09:22→21:31)
[2022-04-01] MEDS: OLOPATADINE 0.1% OPHT DROP 5 ML BOTTLE EACHEYE SCH ×2 (09:23→17:16)
[2022-04-01] MEDS: FLUTICASONE PROP NASAL SPRAY 16 GM BOTTLE NS SCH (09:23)
[2022-04-01] MEDS: DICLOFENAC 1% GEL TP SCH ×4 (09:23→21:32)
[2022-04-01] MEDS: CHLORHEXIDINE GLUCONATE 15 ML MOUTHWASH MM SCH ×2 (09:23→17:17)
[2022-04-01] MEDS: LORATADINE 10 MG TABLET GT SCH (09:23)
[2022-04-01] MEDS: BACLOFEN 20 MG TABLET GT SCH ×3 (09:23→17:16)
[2022-04-01] MEDS: FLUOXETINE HCL 20 MG CAPSULE GT SCH (09:23)
[2022-04-01] MEDS: ENOXAPARIN SODIUM 40 MG/0.4 ML DISP.SYRIN SQ SCH (09:23)
[2022-04-01] MEDS: REMEDY ESSENTIAL ZINC PASTE 113 GM TP SCH ×2 (09:24→21:32)
[2022-04-01] MEDS: HYDROCODONE/APAP 10-325 MG TABLET GT PRN ×2 (10:30→18:00)
[2022-04-01] MEDS: LORAZEPAM 1 MG TABLET GT PRN (21:32)
[2022-04-01] MEDS: hydrOXYzine HCL 25 MG TABLET GT SCH (21:32)
[2022-04-01] MEDS: ATORVASTATIN 20 MG TABLET GT SCH (21:32)
[2022-04-01] MEDS: DOCUSATE SODIUM 100 MG/10 ML LIQUID UDC GT SCH (21:32)
[2022-04-01] MEDS: MELATONIN 3 MG TABLET GT SCH (21:32)
[2022-04-02] MEDS: IPRATROPIUM BROMIDE 0.5 MG/2.5 ML NEBU NEB SCH ×4 (01:11→19:12)
[2022-04-02] MEDS: LORAZEPAM 1 MG TABLET GT PRN ×2 (05:00→21:26)
[2022-04-02] MEDS: OMEPRAZOLE 20 MG CAPSULE.DR GT SCH (05:28)
[2022-04-02] MEDS: GABAPENTIN 300 MG/6 ML GT SCH ×3 (05:28→21:26)
[2022-04-02] MEDS: RILUZOLE 50 MG GT SCH ×2 (05:28→17:05)
[2022-04-02] MEDS: OLOPATADINE 0.1% OPHT DROP 5 ML BOTTLE EACHEYE SCH ×2 (09:05→17:05)
[2022-04-02] MEDS: FLUTICASONE PROP NASAL SPRAY 16 GM BOTTLE NS SCH (09:05)
[2022-04-02] MEDS: DICLOFENAC 1% GEL TP SCH ×4 (09:05→21:26)
[2022-04-02] MEDS: BACLOFEN 20 MG TABLET GT SCH ×3 (09:05→17:05)
[2022-04-02] MEDS: FLUOXETINE HCL 20 MG CAPSULE GT SCH (09:05)
[2022-04-02] MEDS: POLYVINYL ALCOHOL OPHT DROPS 15 ML BOTTLE EACHEYE SCH ×4 (09:05→21:26)
[2022-04-02] MEDS: LORATADINE 10 MG TABLET GT SCH (09:05)
[2022-04-02] MEDS: CHLORHEXIDINE GLUCONATE 15 ML MOUTHWASH MM SCH ×2 (09:05→17:05)
[2022-04-02] MEDS: REMEDY ESSENTIAL ZINC PASTE 113 GM TP SCH ×2 (09:05→21:26)
[2022-04-02] MEDS: ENOXAPARIN SODIUM 40 MG/0.4 ML DISP.SYRIN SQ SCH (09:05)
[2022-04-02] MEDS: HYDROGEN PEROXIDE 3% 118 ML BOTTLE TP SCH ×2 (09:20→19:12)
[2022-04-02] MEDS: HYDROCODONE/APAP 10-325 MG TABLET GT PRN ×2 (09:30→17:07)
[2022-04-02] MEDS: JEVITY 1.2 1000 ML LIQUID GT PRN (10:00)
[2022-04-02] MEDS: hydrOXYzine HCL 25 MG TABLET GT SCH (21:26)
[2022-04-02] MEDS: DOCUSATE SODIUM 100 MG/10 ML LIQUID UDC GT SCH (21:26)
[2022-04-02] MEDS: ATORVASTATIN 20 MG TABLET GT SCH (21:26)
[2022-04-02] MEDS: MELATONIN 3 MG TABLET GT SCH (21:26)
[2022-04-03] MEDS: IPRATROPIUM BROMIDE 0.5 MG/2.5 ML NEBU NEB SCH ×4 (01:02→19:03)
[2022-04-03] MEDS: RILUZOLE 50 MG GT SCH ×2 (05:25→17:52)
[2022-04-03] MEDS: GABAPENTIN 300 MG/6 ML GT SCH ×3 (05:25→21:22)
[2022-04-03] MEDS: OMEPRAZOLE 20 MG CAPSULE.DR GT SCH (05:25)
[2022-04-03] MEDS: HYDROGEN PEROXIDE 3% 118 ML BOTTLE TP SCH ×2 (07:40→19:03)
[2022-04-03] MEDS: ENOXAPARIN SODIUM 40 MG/0.4 ML DISP.SYRIN SQ SCH (09:11)
[2022-04-03] MEDS: LORATADINE 10 MG TABLET GT SCH (09:20)
[2022-04-03] MEDS: FLUOXETINE HCL 20 MG CAPSULE GT SCH (09:20)
[2022-04-03] MEDS: OLOPATADINE 0.1% OPHT DROP 5 ML BOTTLE EACHEYE SCH ×2 (09:20→17:52)
[2022-04-03] MEDS: FLUTICASONE PROP NASAL SPRAY 16 GM BOTTLE NS SCH (09:20)
[2022-04-03] MEDS: POLYVINYL ALCOHOL OPHT DROPS 15 ML BOTTLE EACHEYE SCH ×4 (09:20→21:22)
[2022-04-03] MEDS: BACLOFEN 20 MG TABLET GT SCH ×3 (09:20→17:52)
[2022-04-03] MEDS: CHLORHEXIDINE GLUCONATE 15 ML MOUTHWASH MM SCH ×2 (09:20→17:52)
[2022-04-03] MEDS: DICLOFENAC 1% GEL TP SCH ×4 (09:21→21:22)
[2022-04-03] MEDS: REMEDY ESSENTIAL ZINC PASTE 113 GM TP SCH ×2 (09:21→21:22)
[2022-04-03] MEDS: HYDROCODONE/APAP 10-325 MG TABLET GT PRN ×2 (09:30→18:00)
[2022-04-03] MEDS: JEVITY 1.2 1000 ML LIQUID GT PRN (09:58)
[2022-04-03] MEDS: DOCUSATE SODIUM 100 MG/10 ML LIQUID UDC GT SCH (21:00)
[2022-04-03] MEDS: LORAZEPAM 1 MG TABLET GT PRN (21:00)
[2022-04-03] MEDS: ATORVASTATIN 20 MG TABLET GT SCH (21:22)
[2022-04-03] MEDS: hydrOXYzine HCL 25 MG TABLET GT SCH (21:22)
[2022-04-03] MEDS: MELATONIN 3 MG TABLET GT SCH (21:22)
[2022-04-04] MEDS: IPRATROPIUM BROMIDE 0.5 MG/2.5 ML NEBU NEB SCH ×4 (01:04→19:14)
[2022-04-04] MEDS: LORAZEPAM 1 MG TABLET GT PRN ×2 (04:53→21:50)
[2022-04-04] MEDS: GABAPENTIN 300 MG/6 ML GT SCH ×3 (05:27→21:53)
[2022-04-04] MEDS: RILUZOLE 50 MG GT SCH ×2 (05:27→17:31)
[2022-04-04] MEDS: OMEPRAZOLE 20 MG CAPSULE.DR GT SCH (05:27)
[2022-04-04] MEDS: HYDROCODONE/APAP 10-325 MG TABLET GT PRN ×2 (09:00→17:30)
[2022-04-04] MEDS: FLUTICASONE PROP NASAL SPRAY 16 GM BOTTLE NS SCH (09:10)
[2022-04-04] MEDS: CHLORHEXIDINE GLUCONATE 15 ML MOUTHWASH MM SCH ×2 (09:10→17:30)
[2022-04-04] MEDS: OLOPATADINE 0.1% OPHT DROP 5 ML BOTTLE EACHEYE SCH ×2 (09:10→17:30)
[2022-04-04] MEDS: FLUOXETINE HCL 20 MG CAPSULE GT SCH (09:10)
[2022-04-04] MEDS: BACLOFEN 20 MG TABLET GT SCH ×3 (09:10→17:30)
[2022-04-04] MEDS: LORATADINE 10 MG TABLET GT SCH (09:10)
[2022-04-04] MEDS: POLYVINYL ALCOHOL OPHT DROPS 15 ML BOTTLE EACHEYE SCH ×4 (09:10→21:53)
[2022-04-04] MEDS: DICLOFENAC 1% GEL TP SCH ×4 (09:11→21:59)
[2022-04-04] MEDS: REMEDY ESSENTIAL ZINC PASTE 113 GM TP SCH ×2 (09:11→21:59)
[2022-04-04] MEDS: ENOXAPARIN SODIUM 40 MG/0.4 ML DISP.SYRIN SQ SCH (09:11)
[2022-04-04] MEDS: HYDROGEN PEROXIDE 3% 118 ML BOTTLE TP SCH ×2 (09:44→21:14)
[2022-04-04] MEDS: hydrOXYzine HCL 25 MG TABLET GT SCH (21:53)
[2022-04-04] MEDS: DOCUSATE SODIUM 100 MG/10 ML LIQUID UDC GT SCH (21:53)
[2022-04-04] MEDS: MELATONIN 3 MG TABLET GT SCH (21:58)
[2022-04-04] MEDS: ATORVASTATIN 20 MG TABLET GT SCH (21:58)
[2022-04-05] MEDS: LORAZEPAM 1 MG TABLET GT PRN ×2 (01:03→04:39)
[2022-04-05] MEDS: IPRATROPIUM BROMIDE 0.5 MG/2.5 ML NEBU NEB SCH ×4 (02:00→19:40)
[2022-04-05] MEDS: GABAPENTIN 300 MG/6 ML GT SCH ×3 (06:18→20:58)
[2022-04-05] MEDS: RILUZOLE 50 MG GT SCH ×2 (06:18→18:00)
[2022-04-05] MEDS: OMEPRAZOLE 20 MG CAPSULE.DR GT SCH (06:18)
[2022-04-05] MEDS: POLYVINYL ALCOHOL OPHT DROPS 15 ML BOTTLE EACHEYE SCH ×4 (08:55→20:58)
[2022-04-05] MEDS: FLUOXETINE HCL 20 MG CAPSULE GT SCH (08:56)
[2022-04-05] MEDS: BACLOFEN 20 MG TABLET GT SCH ×3 (08:56→17:59)
[2022-04-05] MEDS: OLOPATADINE 0.1% OPHT DROP 5 ML BOTTLE EACHEYE SCH ×2 (08:56→17:59)
[2022-04-05] MEDS: LORATADINE 10 MG TABLET GT SCH (08:56)
[2022-04-05] MEDS: DICLOFENAC 1% GEL TP SCH ×4 (08:57→20:58)
[2022-04-05] MEDS: FLUTICASONE PROP NASAL SPRAY 16 GM BOTTLE NS SCH (08:57)
[2022-04-05] MEDS: REMEDY ESSENTIAL ZINC PASTE 113 GM TP SCH ×2 (08:57→20:58)
[2022-04-05] MEDS: CHLORHEXIDINE GLUCONATE 15 ML MOUTHWASH MM SCH ×2 (08:57→17:59)
[2022-04-05] MEDS: ENOXAPARIN SODIUM 40 MG/0.4 ML DISP.SYRIN SQ SCH (08:57)
[2022-04-05] MEDS: HYDROCODONE/APAP 10-325 MG TABLET GT PRN ×2 (08:59→17:45)
[2022-04-05] MEDS: HYDROGEN PEROXIDE 3% 118 ML BOTTLE TP SCH ×2 (09:39→20:58)
[2022-04-05] MEDS: DOCUSATE SODIUM 100 MG/10 ML LIQUID UDC GT SCH (20:58)
[2022-04-05] MEDS: hydrOXYzine HCL 25 MG TABLET GT SCH (20:58)
[2022-04-05] MEDS: ATORVASTATIN 20 MG TABLET GT SCH (20:58)
[2022-04-05] MEDS: MELATONIN 3 MG TABLET GT SCH (20:58)
[2022-04-06] MEDS: IPRATROPIUM BROMIDE 0.5 MG/2.5 ML NEBU NEB SCH ×4 (01:20→19:16)
[2022-04-06] MEDS: GABAPENTIN 300 MG/6 ML GT SCH ×3 (06:50→21:25)
[2022-04-06] MEDS: OMEPRAZOLE 20 MG CAPSULE.DR GT SCH (06:51)
[2022-04-06] MEDS: RILUZOLE 50 MG GT SCH ×2 (06:51→17:09)
[2022-04-06] MEDS: HYDROGEN PEROXIDE 3% 118 ML BOTTLE TP SCH ×2 (09:00→21:00)
[2022-04-06] MEDS: OLOPATADINE 0.1% OPHT DROP 5 ML BOTTLE EACHEYE SCH ×2 (09:09→17:09)
[2022-04-06] MEDS: POLYVINYL ALCOHOL OPHT DROPS 15 ML BOTTLE EACHEYE SCH ×4 (09:09→21:10)
[2022-04-06] MEDS: FLUOXETINE HCL 20 MG CAPSULE GT SCH (09:09)
[2022-04-06] MEDS: CHLORHEXIDINE GLUCONATE 15 ML MOUTHWASH MM SCH ×2 (09:09→17:09)
[2022-04-06] MEDS: LORATADINE 10 MG TABLET GT SCH (09:09)
[2022-04-06] MEDS: BACLOFEN 20 MG TABLET GT SCH ×3 (09:09→17:09)
[2022-04-06] MEDS: FLUTICASONE PROP NASAL SPRAY 16 GM BOTTLE NS SCH (09:10)
[2022-04-06] MEDS: DICLOFENAC 1% GEL TP SCH ×4 (09:10→21:11)
[2022-04-06] MEDS: REMEDY ESSENTIAL ZINC PASTE 113 GM TP SCH ×2 (09:10→21:12)
[2022-04-06] MEDS: HYDROCODONE/APAP 10-325 MG TABLET GT PRN ×2 (09:10→17:14)
[2022-04-06] MEDS: ENOXAPARIN SODIUM 40 MG/0.4 ML DISP.SYRIN SQ SCH (09:14)
[2022-04-06] MEDS: DOCUSATE SODIUM 100 MG/10 ML LIQUID UDC GT SCH (21:10)
[2022-04-06] MEDS: hydrOXYzine HCL 25 MG TABLET GT SCH (21:10)
[2022-04-06] MEDS: MELATONIN 3 MG TABLET GT SCH (21:11)
[2022-04-06] MEDS: ATORVASTATIN 20 MG TABLET GT SCH (21:11)
[2022-04-06] MEDS: LORAZEPAM 1 MG TABLET GT PRN (21:12)
[2022-04-07] MEDS: IPRATROPIUM BROMIDE 0.5 MG/2.5 ML NEBU NEB SCH ×4 (00:49→20:00)
[2022-04-07] MEDS: JEVITY 1.2 1000 ML LIQUID GT PRN (04:00)
[2022-04-07] MEDS: GABAPENTIN 300 MG/6 ML GT SCH ×3 (05:30→21:34)
[2022-04-07] MEDS: OMEPRAZOLE 20 MG CAPSULE.DR GT SCH (05:30)
[2022-04-07] MEDS: RILUZOLE 50 MG GT SCH ×2 (05:34→17:01)
[2022-04-07] MEDS: POLYVINYL ALCOHOL OPHT DROPS 15 ML BOTTLE EACHEYE SCH ×4 (08:33→21:33)
[2022-04-07] MEDS: LORATADINE 10 MG TABLET GT SCH (08:34)
[2022-04-07] MEDS: FLUOXETINE HCL 20 MG CAPSULE GT SCH (08:34)
[2022-04-07] MEDS: CHLORHEXIDINE GLUCONATE 15 ML MOUTHWASH MM SCH ×2 (08:34→17:01)
[2022-04-07] MEDS: BACLOFEN 20 MG TABLET GT SCH ×3 (08:34→17:00)
[2022-04-07] MEDS: FLUTICASONE PROP NASAL SPRAY 16 GM BOTTLE NS SCH (08:35)
[2022-04-07] MEDS: ENOXAPARIN SODIUM 40 MG/0.4 ML DISP.SYRIN SQ SCH (08:36)
[2022-04-07] MEDS: DICLOFENAC 1% GEL TP SCH ×4 (08:37→21:35)
[2022-04-07] MEDS: REMEDY ESSENTIAL ZINC PASTE 113 GM TP SCH ×2 (08:37→21:35)
[2022-04-07] MEDS: HYDROCODONE/APAP 10-325 MG TABLET GT PRN ×2 (08:42→17:15)
[2022-04-07] MEDS: OLOPATADINE 0.1% OPHT DROP 5 ML BOTTLE EACHEYE SCH ×2 (09:00→17:06)
[2022-04-07] MEDS: HYDROGEN PEROXIDE 3% 118 ML BOTTLE TP SCH ×2 (09:08→21:00)
[2022-04-07] MEDS: hydrOXYzine HCL 25 MG TABLET GT SCH (21:33)
[2022-04-07] MEDS: DOCUSATE SODIUM 100 MG/10 ML LIQUID UDC GT SCH (21:33)
[2022-04-07] MEDS: MELATONIN 3 MG TABLET GT SCH (21:34)
[2022-04-07] MEDS: ATORVASTATIN 20 MG TABLET GT SCH (21:34)
[2022-04-07] MEDS: LORAZEPAM 1 MG TABLET GT PRN (21:35)
[2022-04-08] MEDS: IPRATROPIUM BROMIDE 0.5 MG/2.5 ML NEBU NEB SCH ×4 (00:39→19:55)
[2022-04-08] MEDS: OMEPRAZOLE 20 MG CAPSULE.DR GT SCH (06:13)
[2022-04-08] MEDS: GABAPENTIN 300 MG/6 ML GT SCH ×3 (06:13→21:09)
[2022-04-08] MEDS: RILUZOLE 50 MG GT SCH ×2 (06:13→18:09)
[2022-04-08] MEDS: JEVITY 1.2 1000 ML LIQUID GT PRN (06:14)
[2022-04-08] MEDS: HYDROGEN PEROXIDE 3% 118 ML BOTTLE TP SCH ×2 (08:10→21:00)
[2022-04-08] MEDS: LORATADINE 10 MG TABLET GT SCH (08:57)
[2022-04-08] MEDS: OLOPATADINE 0.1% OPHT DROP 5 ML BOTTLE EACHEYE SCH ×2 (08:57→17:00)
[2022-04-08] MEDS: CHLORHEXIDINE GLUCONATE 15 ML MOUTHWASH MM SCH ×2 (08:57→17:00)
[2022-04-08] MEDS: POLYVINYL ALCOHOL OPHT DROPS 15 ML BOTTLE EACHEYE SCH ×4 (08:57→21:26)
[2022-04-08] MEDS: FLUOXETINE HCL 20 MG CAPSULE GT SCH (08:57)
[2022-04-08] MEDS: DICLOFENAC 1% GEL TP SCH ×4 (08:57→21:13)
[2022-04-08] MEDS: BACLOFEN 20 MG TABLET GT SCH ×3 (08:57→17:00)
[2022-04-08] MEDS: ENOXAPARIN SODIUM 40 MG/0.4 ML DISP.SYRIN SQ SCH (08:57)
[2022-04-08] MEDS: FLUTICASONE PROP NASAL SPRAY 16 GM BOTTLE NS SCH (08:57)
[2022-04-08] MEDS: REMEDY ESSENTIAL ZINC PASTE 113 GM TP SCH ×2 (08:58→21:13)
[2022-04-08] MEDS: HYDROCODONE/APAP 10-325 MG TABLET GT PRN ×2 (09:00→17:30)
[2022-04-08] MEDS: hydrOXYzine HCL 25 MG TABLET GT SCH (21:08)
[2022-04-08] MEDS: MELATONIN 3 MG TABLET GT SCH (21:11)
[2022-04-08] MEDS: ATORVASTATIN 20 MG TABLET GT SCH (21:11)
[2022-04-08] MEDS: LORAZEPAM 1 MG TABLET GT PRN (21:30)
[2022-04-09] MEDS: IPRATROPIUM BROMIDE 0.5 MG/2.5 ML NEBU NEB SCH ×4 (01:45→19:20)
[2022-04-09] MEDS: DOCUSATE SODIUM 100 MG/10 ML LIQUID UDC GT SCH (05:32)
[2022-04-09] MEDS: RILUZOLE 50 MG GT SCH ×2 (05:32→17:10)
[2022-04-09] MEDS: GABAPENTIN 300 MG/6 ML GT SCH ×3 (05:32→21:00)
[2022-04-09] MEDS: OMEPRAZOLE 20 MG CAPSULE.DR GT SCH (05:32)
[2022-04-09] MEDS: HYDROGEN PEROXIDE 3% 118 ML BOTTLE TP SCH ×2 (07:45→21:23)
[2022-04-09] MEDS: HYDROCODONE/APAP 10-325 MG TABLET GT PRN ×2 (09:00→17:00)
[2022-04-09] MEDS: FLUOXETINE HCL 20 MG CAPSULE GT SCH (09:13)
[2022-04-09] MEDS: CHLORHEXIDINE GLUCONATE 15 ML MOUTHWASH MM SCH ×2 (09:13→17:10)
[2022-04-09] MEDS: FLUTICASONE PROP NASAL SPRAY 16 GM BOTTLE NS SCH (09:13)
[2022-04-09] MEDS: LORATADINE 10 MG TABLET GT SCH (09:13)
[2022-04-09] MEDS: BACLOFEN 20 MG TABLET GT SCH ×3 (09:13→17:10)
[2022-04-09] MEDS: POLYVINYL ALCOHOL OPHT DROPS 15 ML BOTTLE EACHEYE SCH ×4 (09:13→21:00)
[2022-04-09] MEDS: OLOPATADINE 0.1% OPHT DROP 5 ML BOTTLE EACHEYE SCH ×2 (09:13→17:09)
[2022-04-09] MEDS: DICLOFENAC 1% GEL TP SCH ×4 (09:14→21:00)
[2022-04-09] MEDS: ENOXAPARIN SODIUM 40 MG/0.4 ML DISP.SYRIN SQ SCH (09:14)
[2022-04-09] MEDS: REMEDY ESSENTIAL ZINC PASTE 113 GM TP SCH ×2 (09:14→21:00)
[2022-04-09] MEDS: ATORVASTATIN 20 MG TABLET GT SCH (21:00)
[2022-04-09] MEDS: hydrOXYzine HCL 25 MG TABLET GT SCH (21:00)
[2022-04-09] MEDS: MELATONIN 3 MG TABLET GT SCH (21:00)
[2022-04-10] MEDS: LORAZEPAM 1 MG TABLET GT PRN ×2 (00:03→21:53)
[2022-04-10] MEDS: IPRATROPIUM BROMIDE 0.5 MG/2.5 ML NEBU NEB SCH ×4 (00:50→19:20)
[2022-04-10] MEDS: OMEPRAZOLE 20 MG CAPSULE.DR GT SCH (06:49)
[2022-04-10] MEDS: GABAPENTIN 300 MG/6 ML GT SCH ×3 (06:49→21:31)
[2022-04-10] MEDS: RILUZOLE 50 MG GT SCH (06:49)
[2022-04-10] MEDS: DOCUSATE SODIUM 100 MG/10 ML LIQUID UDC GT SCH (06:49)
[2022-04-10] MEDS: HYDROGEN PEROXIDE 3% 118 ML BOTTLE TP SCH ×2 (07:23→21:15)
[2022-04-10] MEDS: POLYVINYL ALCOHOL OPHT DROPS 15 ML BOTTLE EACHEYE SCH ×4 (09:40→20:59)
[2022-04-10] MEDS: LORATADINE 10 MG TABLET GT SCH (09:41)
[2022-04-10] MEDS: BACLOFEN 20 MG TABLET GT SCH ×3 (09:41→16:13)
[2022-04-10] MEDS: OLOPATADINE 0.1% OPHT DROP 5 ML BOTTLE EACHEYE SCH ×2 (09:41→16:12)
[2022-04-10] MEDS: FLUTICASONE PROP NASAL SPRAY 16 GM BOTTLE NS SCH (09:42)
[2022-04-10] MEDS: FLUOXETINE HCL 20 MG CAPSULE GT SCH (09:42)
[2022-04-10] MEDS: CHLORHEXIDINE GLUCONATE 15 ML MOUTHWASH MM SCH ×2 (09:42→16:14)
[2022-04-10] MEDS: DICLOFENAC 1% GEL TP SCH ×4 (09:43→21:09)
[2022-04-10] MEDS: REMEDY ESSENTIAL ZINC PASTE 113 GM TP SCH ×2 (09:43→21:08)
[2022-04-10] MEDS: ENOXAPARIN SODIUM 40 MG/0.4 ML DISP.SYRIN SQ SCH (09:48)
[2022-04-10] MEDS: HYDROCODONE/APAP 10-325 MG TABLET GT PRN (09:50)
[2022-04-10] MEDS: hydrOXYzine HCL 25 MG TABLET GT SCH (20:59)
[2022-04-10] MEDS: ATORVASTATIN 20 MG TABLET GT SCH (21:00)
[2022-04-10] MEDS: MELATONIN 3 MG TABLET GT SCH (21:08)
[2022-04-11] MEDS: IPRATROPIUM BROMIDE 0.5 MG/2.5 ML NEBU NEB SCH ×4 (00:35→19:23)
[2022-04-11] MEDS: RILUZOLE 50 MG GT SCH ×2 (06:00→17:53)
[2022-04-11] MEDS: OMEPRAZOLE 20 MG CAPSULE.DR GT SCH (06:14)
[2022-04-11] MEDS: DOCUSATE SODIUM 100 MG/10 ML LIQUID UDC GT SCH (06:15)
[2022-04-11] MEDS: GABAPENTIN 300 MG/6 ML GT SCH ×3 (06:40→21:29)
[2022-04-11] MEDS: HYDROGEN PEROXIDE 3% 118 ML BOTTLE TP SCH ×2 (09:00→21:05)
[2022-04-11] MEDS: CHLORHEXIDINE GLUCONATE 15 ML MOUTHWASH MM SCH ×2 (09:49→17:52)
[2022-04-11] MEDS: BACLOFEN 20 MG TABLET GT SCH ×3 (09:49→17:52)
[2022-04-11] MEDS: POLYVINYL ALCOHOL OPHT DROPS 15 ML BOTTLE EACHEYE SCH ×4 (09:49→21:29)
[2022-04-11] MEDS: LORATADINE 10 MG TABLET GT SCH (09:49)
[2022-04-11] MEDS: FLUTICASONE PROP NASAL SPRAY 16 GM BOTTLE NS SCH (09:49)
[2022-04-11] MEDS: FLUOXETINE HCL 20 MG CAPSULE GT SCH (09:49)
[2022-04-11] MEDS: OLOPATADINE 0.1% OPHT DROP 5 ML BOTTLE EACHEYE SCH ×2 (09:49→17:52)
[2022-04-11] MEDS: ENOXAPARIN SODIUM 40 MG/0.4 ML DISP.SYRIN SQ SCH (09:50)
[2022-04-11] MEDS: REMEDY ESSENTIAL ZINC PASTE 113 GM TP SCH ×2 (09:50→21:29)
[2022-04-11] MEDS: DICLOFENAC 1% GEL TP SCH ×4 (09:50→21:29)
[2022-04-11] MEDS: HYDROCODONE/APAP 10-325 MG TABLET GT PRN ×2 (10:15→17:54)
[2022-04-11] MEDS: LORAZEPAM 1 MG TABLET GT PRN (21:29)
[2022-04-11] MEDS: hydrOXYzine HCL 25 MG TABLET GT SCH (21:29)
[2022-04-11] MEDS: MELATONIN 3 MG TABLET GT SCH (21:29)
[2022-04-11] MEDS: ATORVASTATIN 20 MG TABLET GT SCH (21:29)
[2022-04-12] MEDS: IPRATROPIUM BROMIDE 0.5 MG/2.5 ML NEBU NEB SCH ×4 (00:35→20:29)
[2022-04-12] MEDS: GABAPENTIN 300 MG/6 ML GT SCH ×3 (05:34→21:00)
[2022-04-12] MEDS: RILUZOLE 50 MG GT SCH ×2 (05:34→17:04)
[2022-04-12] MEDS: OMEPRAZOLE 20 MG CAPSULE.DR GT SCH (05:34)
[2022-04-12] MEDS: DOCUSATE SODIUM 100 MG/10 ML LIQUID UDC GT SCH (05:34)
[2022-04-12] MEDS: HYDROGEN PEROXIDE 3% 118 ML BOTTLE TP SCH ×2 (09:42→20:29)
[2022-04-12] MEDS: OLOPATADINE 0.1% OPHT DROP 5 ML BOTTLE EACHEYE SCH ×2 (09:47→16:50)
[2022-04-12] MEDS: LORATADINE 10 MG TABLET GT SCH (09:47)
[2022-04-12] MEDS: POLYVINYL ALCOHOL OPHT DROPS 15 ML BOTTLE EACHEYE SCH ×4 (09:47→21:00)
[2022-04-12] MEDS: DICLOFENAC 1% GEL TP SCH ×4 (09:48→21:00)
[2022-04-12] MEDS: REMEDY ESSENTIAL ZINC PASTE 113 GM TP SCH ×2 (09:48→21:00)
[2022-04-12] MEDS: BACLOFEN 20 MG TABLET GT SCH ×3 (09:48→16:50)
[2022-04-12] MEDS: ENOXAPARIN SODIUM 40 MG/0.4 ML DISP.SYRIN SQ SCH (09:49)
[2022-04-12] MEDS: FLUOXETINE HCL 20 MG CAPSULE GT SCH (09:49)
[2022-04-12] MEDS: FLUTICASONE PROP NASAL SPRAY 16 GM BOTTLE NS SCH (09:49)
[2022-04-12] MEDS: CHLORHEXIDINE GLUCONATE 15 ML MOUTHWASH MM SCH ×2 (09:49→16:50)
[2022-04-12] MEDS: JEVITY 1.2 1000 ML LIQUID GT PRN (09:54)
[2022-04-12] MEDS: HYDROCODONE/APAP 10-325 MG TABLET GT PRN ×2 (09:55→17:14)
[2022-04-12] MEDS: hydrOXYzine HCL 25 MG TABLET GT SCH (21:00)
[2022-04-12] MEDS: MELATONIN 3 MG TABLET GT SCH (21:00)
[2022-04-12] MEDS: LORAZEPAM 1 MG TABLET GT PRN (21:00)
[2022-04-12] MEDS: ATORVASTATIN 20 MG TABLET GT SCH (21:00)
[2022-04-13] MEDS: IPRATROPIUM BROMIDE 0.5 MG/2.5 ML NEBU NEB SCH ×4 (01:45→19:37)
[2022-04-13] MEDS: OMEPRAZOLE 20 MG CAPSULE.DR GT SCH (05:33)
[2022-04-13] MEDS: GABAPENTIN 300 MG/6 ML GT SCH ×3 (05:33→21:16)
[2022-04-13] MEDS: RILUZOLE 50 MG GT SCH ×2 (05:33→17:17)
[2022-04-13] MEDS: DOCUSATE SODIUM 100 MG/10 ML LIQUID UDC GT SCH (05:33)
[2022-04-13] MEDS: OLOPATADINE 0.1% OPHT DROP 5 ML BOTTLE EACHEYE SCH ×2 (08:48→16:49)
[2022-04-13] MEDS: POLYVINYL ALCOHOL OPHT DROPS 15 ML BOTTLE EACHEYE SCH ×4 (08:49→21:16)
[2022-04-13] MEDS: BACLOFEN 20 MG TABLET GT SCH ×3 (08:50→16:50)
[2022-04-13] MEDS: LORATADINE 10 MG TABLET GT SCH (08:50)
[2022-04-13] MEDS: FLUOXETINE HCL 20 MG CAPSULE GT SCH (08:51)
[2022-04-13] MEDS: CHLORHEXIDINE GLUCONATE 15 ML MOUTHWASH MM SCH ×2 (08:51→16:50)
[2022-04-13] MEDS: FLUTICASONE PROP NASAL SPRAY 16 GM BOTTLE NS SCH (08:51)
[2022-04-13] MEDS: REMEDY ESSENTIAL ZINC PASTE 113 GM TP SCH ×2 (08:53→21:20)
[2022-04-13] MEDS: DICLOFENAC 1% GEL TP SCH ×4 (08:53→21:19)
[2022-04-13] MEDS: ENOXAPARIN SODIUM 40 MG/0.4 ML DISP.SYRIN SQ SCH (08:56)
[2022-04-13] MEDS: HYDROGEN PEROXIDE 3% 118 ML BOTTLE TP SCH ×3 (09:56→19:39)
[2022-04-13] MEDS: HYDROCODONE/APAP 10-325 MG TABLET GT PRN ×2 (10:30→17:30)
[2022-04-13] MEDS: LORAZEPAM 1 MG TABLET GT PRN (21:00)
[2022-04-13] MEDS: hydrOXYzine HCL 25 MG TABLET GT SCH (21:16)
[2022-04-13] MEDS: ATORVASTATIN 20 MG TABLET GT SCH (21:18)
[2022-04-13] MEDS: MELATONIN 3 MG TABLET GT SCH (21:19)
[2022-04-14] MEDS: IPRATROPIUM BROMIDE 0.5 MG/2.5 ML NEBU NEB SCH ×4 (02:23→19:40)
[2022-04-14] MEDS: DOCUSATE SODIUM 100 MG/10 ML LIQUID UDC GT SCH (05:35)
[2022-04-14] MEDS: RILUZOLE 50 MG GT SCH ×2 (05:35→17:57)
[2022-04-14] MEDS: OMEPRAZOLE 20 MG CAPSULE.DR GT SCH (05:35)
[2022-04-14] MEDS: GABAPENTIN 300 MG/6 ML GT SCH ×3 (05:35→21:22)
[2022-04-14] MEDS: HYDROGEN PEROXIDE 3% 118 ML BOTTLE TP SCH ×2 (09:00→19:40)
[2022-04-14] MEDS: POLYVINYL ALCOHOL OPHT DROPS 15 ML BOTTLE EACHEYE SCH ×4 (09:40→21:22)
[2022-04-14] MEDS: OLOPATADINE 0.1% OPHT DROP 5 ML BOTTLE EACHEYE SCH ×2 (09:40→17:55)
[2022-04-14] MEDS: FLUTICASONE PROP NASAL SPRAY 16 GM BOTTLE NS SCH (09:52)
[2022-04-14] MEDS: LORATADINE 10 MG TABLET GT SCH (09:52)
[2022-04-14] MEDS: BACLOFEN 20 MG TABLET GT SCH ×3 (09:52→17:57)
[2022-04-14] MEDS: REMEDY ESSENTIAL ZINC PASTE 113 GM TP SCH ×2 (09:52→21:26)
[2022-04-14] MEDS: CHLORHEXIDINE GLUCONATE 15 ML MOUTHWASH MM SCH ×2 (09:52→17:57)
[2022-04-14] MEDS: DICLOFENAC 1% GEL TP SCH ×4 (09:52→21:26)
[2022-04-14] MEDS: FLUOXETINE HCL 20 MG CAPSULE GT SCH (09:52)
[2022-04-14] MEDS: ENOXAPARIN SODIUM 40 MG/0.4 ML DISP.SYRIN SQ SCH (09:59)
[2022-04-14] MEDS: HYDROCODONE/APAP 10-325 MG TABLET GT PRN (17:57)
[2022-04-14] MEDS: LORAZEPAM 1 MG TABLET GT PRN (21:00)
[2022-04-14] MEDS: hydrOXYzine HCL 25 MG TABLET GT SCH (21:22)
[2022-04-14] MEDS: ATORVASTATIN 20 MG TABLET GT SCH (21:25)
[2022-04-14] MEDS: MELATONIN 3 MG TABLET GT SCH (21:26)
[2022-04-15] MEDS: IPRATROPIUM BROMIDE 0.5 MG/2.5 ML NEBU NEB SCH ×4 (00:31→19:31)
[2022-04-15] MEDS: JEVITY 1.2 1000 ML LIQUID GT PRN (05:30)
[2022-04-15] MEDS: RILUZOLE 50 MG GT SCH ×2 (05:57→18:03)
[2022-04-15] MEDS: OMEPRAZOLE 20 MG CAPSULE.DR GT SCH (05:57)
[2022-04-15] MEDS: GABAPENTIN 300 MG/6 ML GT SCH ×3 (05:57→21:41)
[2022-04-15] MEDS: DOCUSATE SODIUM 100 MG/10 ML LIQUID UDC GT SCH (05:57)
[2022-04-15] MEDS: ONDANSETRON HCL 4 MG TABLET GT PRN (06:13)
[2022-04-15] MEDS: HYDROGEN PEROXIDE 3% 118 ML BOTTLE TP SCH ×2 (09:00→19:31)
[2022-04-15] MEDS: POLYVINYL ALCOHOL OPHT DROPS 15 ML BOTTLE EACHEYE SCH ×4 (09:16→21:38)
[2022-04-15] MEDS: OLOPATADINE 0.1% OPHT DROP 5 ML BOTTLE EACHEYE SCH ×2 (09:16→17:00)
[2022-04-15] MEDS: LORATADINE 10 MG TABLET GT SCH (09:16)
[2022-04-15] MEDS: FLUOXETINE HCL 20 MG CAPSULE GT SCH (09:17)
[2022-04-15] MEDS: FLUTICASONE PROP NASAL SPRAY 16 GM BOTTLE NS SCH (09:17)
[2022-04-15] MEDS: CHLORHEXIDINE GLUCONATE 15 ML MOUTHWASH MM SCH ×2 (09:17→17:00)
[2022-04-15] MEDS: BACLOFEN 20 MG TABLET GT SCH ×3 (09:17→17:00)
[2022-04-15] MEDS: REMEDY ESSENTIAL ZINC PASTE 113 GM TP SCH ×2 (09:18→21:42)
[2022-04-15] MEDS: DICLOFENAC 1% GEL TP SCH ×4 (09:18→21:42)
[2022-04-15] MEDS: ENOXAPARIN SODIUM 40 MG/0.4 ML DISP.SYRIN SQ SCH (09:32)
[2022-04-15] MEDS: HYDROCODONE/APAP 10-325 MG TABLET GT PRN ×2 (10:46→18:18)
[2022-04-15] MEDS: LORAZEPAM 1 MG TABLET GT PRN ×2 (11:55→21:00)
[2022-04-15] MEDS: hydrOXYzine HCL 25 MG TABLET GT SCH (21:39)
[2022-04-15] MEDS: MELATONIN 3 MG TABLET GT SCH (21:41)
[2022-04-15] MEDS: ATORVASTATIN 20 MG TABLET GT SCH (21:41)
[2022-04-16] MEDS: IPRATROPIUM BROMIDE 0.5 MG/2.5 ML NEBU NEB SCH ×4 (01:08→19:13)
[2022-04-16] MEDS: OMEPRAZOLE 20 MG CAPSULE.DR GT SCH (05:24)
[2022-04-16] MEDS: RILUZOLE 50 MG GT SCH ×2 (05:24→17:25)
[2022-04-16] MEDS: GABAPENTIN 300 MG/6 ML GT SCH ×3 (05:24→20:51)
[2022-04-16] MEDS: DOCUSATE SODIUM 100 MG/10 ML LIQUID UDC GT SCH (05:24)
[2022-04-16] MEDS: HYDROGEN PEROXIDE 3% 118 ML BOTTLE TP SCH ×2 (08:39→18:45)
[2022-04-16] MEDS: POLYVINYL ALCOHOL OPHT DROPS 15 ML BOTTLE EACHEYE SCH ×4 (09:08→20:49)
[2022-04-16] MEDS: LORATADINE 10 MG TABLET GT SCH (09:09)
[2022-04-16] MEDS: FLUOXETINE HCL 20 MG CAPSULE GT SCH (09:09)
[2022-04-16] MEDS: BACLOFEN 20 MG TABLET GT SCH ×3 (09:09→17:24)
[2022-04-16] MEDS: OLOPATADINE 0.1% OPHT DROP 5 ML BOTTLE EACHEYE SCH ×2 (09:09→17:24)
[2022-04-16] MEDS: DICLOFENAC 1% GEL TP SCH ×4 (09:10→20:52)
[2022-04-16] MEDS: FLUTICASONE PROP NASAL SPRAY 16 GM BOTTLE NS SCH (09:10)
[2022-04-16] MEDS: ENOXAPARIN SODIUM 40 MG/0.4 ML DISP.SYRIN SQ SCH (09:10)
[2022-04-16] MEDS: CHLORHEXIDINE GLUCONATE 15 ML MOUTHWASH MM SCH ×2 (09:10→17:26)
[2022-04-16] MEDS: REMEDY ESSENTIAL ZINC PASTE 113 GM TP SCH ×2 (09:10→20:52)
[2022-04-16] MEDS: HYDROCODONE/APAP 10-325 MG TABLET GT PRN ×2 (10:00→17:20)
[2022-04-16] MEDS: ATORVASTATIN 20 MG TABLET GT SCH (20:50)
[2022-04-16] MEDS: hydrOXYzine HCL 25 MG TABLET GT SCH (20:50)
[2022-04-16] MEDS: MELATONIN 3 MG TABLET GT SCH (20:51)
[2022-04-16] MEDS: LORAZEPAM 1 MG TABLET GT PRN (21:00)
[2022-04-17] MEDS: IPRATROPIUM BROMIDE 0.5 MG/2.5 ML NEBU NEB SCH ×5 (00:44→19:14)
[2022-04-17] MEDS: JEVITY 1.2 1000 ML LIQUID GT PRN (01:09)
[2022-04-17] MEDS: RILUZOLE 50 MG GT SCH ×2 (06:24→18:02)
[2022-04-17] MEDS: DOCUSATE SODIUM 100 MG/10 ML LIQUID UDC GT SCH (06:24)
[2022-04-17] MEDS: OMEPRAZOLE 20 MG CAPSULE.DR GT SCH (06:24)
[2022-04-17] MEDS: GABAPENTIN 300 MG/6 ML GT SCH ×3 (06:24→21:20)
[2022-04-17] MEDS: HYDROGEN PEROXIDE 3% 118 ML BOTTLE TP SCH ×2 (07:35→19:14)
[2022-04-17] MEDS: POLYVINYL ALCOHOL OPHT DROPS 15 ML BOTTLE EACHEYE SCH ×4 (08:47→21:19)
[2022-04-17] MEDS: OLOPATADINE 0.1% OPHT DROP 5 ML BOTTLE EACHEYE SCH ×2 (08:47→17:00)
[2022-04-17] MEDS: LORATADINE 10 MG TABLET GT SCH (08:48)
[2022-04-17] MEDS: BACLOFEN 20 MG TABLET GT SCH ×3 (08:48→17:00)
[2022-04-17] MEDS: FLUTICASONE PROP NASAL SPRAY 16 GM BOTTLE NS SCH (08:49)
[2022-04-17] MEDS: CHLORHEXIDINE GLUCONATE 15 ML MOUTHWASH MM SCH ×2 (08:49→17:00)
[2022-04-17] MEDS: DICLOFENAC 1% GEL TP SCH ×4 (08:49→21:21)
[2022-04-17] MEDS: FLUOXETINE HCL 20 MG CAPSULE GT SCH (08:49)
[2022-04-17] MEDS: REMEDY ESSENTIAL ZINC PASTE 113 GM TP SCH ×2 (08:49→21:21)
[2022-04-17] MEDS: ENOXAPARIN SODIUM 40 MG/0.4 ML DISP.SYRIN SQ SCH (08:50)
[2022-04-17] MEDS: HYDROCODONE/APAP 10-325 MG TABLET GT PRN ×2 (11:12→18:03)
[2022-04-17] MEDS: ATORVASTATIN 20 MG TABLET GT SCH (21:20)
[2022-04-17] MEDS: hydrOXYzine HCL 25 MG TABLET GT SCH (21:20)
[2022-04-17] MEDS: MELATONIN 3 MG TABLET GT SCH (21:21)
[2022-04-17] MEDS: LORAZEPAM 1 MG TABLET GT PRN (21:21)
[2022-04-18] MEDS: IPRATROPIUM BROMIDE 0.5 MG/2.5 ML NEBU NEB SCH ×4 (00:50→19:03)
[2022-04-18] MEDS: GABAPENTIN 300 MG/6 ML GT SCH ×3 (05:59→21:00)
[2022-04-18] MEDS: OMEPRAZOLE 20 MG CAPSULE.DR GT SCH (05:59)
[2022-04-18] MEDS: DOCUSATE SODIUM 100 MG/10 ML LIQUID UDC GT SCH (05:59)
[2022-04-18] MEDS: RILUZOLE 50 MG GT SCH ×2 (06:00→17:19)
[2022-04-18] MEDS: HYDROGEN PEROXIDE 3% 118 ML BOTTLE TP SCH ×2 (09:00→19:03)
[2022-04-18] MEDS: HYDROCODONE/APAP 10-325 MG TABLET GT PRN ×2 (09:00→17:00)
[2022-04-18] MEDS: CHLORHEXIDINE GLUCONATE 15 ML MOUTHWASH MM SCH ×2 (09:33→17:17)
[2022-04-18] MEDS: FLUTICASONE PROP NASAL SPRAY 16 GM BOTTLE NS SCH (09:33)
[2022-04-18] MEDS: POLYVINYL ALCOHOL OPHT DROPS 15 ML BOTTLE EACHEYE SCH ×4 (09:33→21:00)
[2022-04-18] MEDS: OLOPATADINE 0.1% OPHT DROP 5 ML BOTTLE EACHEYE SCH ×2 (09:33→17:17)
[2022-04-18] MEDS: BACLOFEN 20 MG TABLET GT SCH ×3 (09:33→17:17)
[2022-04-18] MEDS: FLUOXETINE HCL 20 MG CAPSULE GT SCH (09:33)
[2022-04-18] MEDS: LORATADINE 10 MG TABLET GT SCH (09:33)
[2022-04-18] MEDS: REMEDY ESSENTIAL ZINC PASTE 113 GM TP SCH ×2 (09:34→21:00)
[2022-04-18] MEDS: ENOXAPARIN SODIUM 40 MG/0.4 ML DISP.SYRIN SQ SCH (09:34)
[2022-04-18] MEDS: DICLOFENAC 1% GEL TP SCH ×4 (09:34→21:00)
[2022-04-18] MEDS: MELATONIN 3 MG TABLET GT SCH (21:00)
[2022-04-18] MEDS: ATORVASTATIN 20 MG TABLET GT SCH (21:00)
[2022-04-18] MEDS: hydrOXYzine HCL 25 MG TABLET GT SCH (21:00)
[2022-04-18] MEDS: LORAZEPAM 1 MG TABLET GT PRN (22:53)
[2022-04-19] MEDS: IPRATROPIUM BROMIDE 0.5 MG/2.5 ML NEBU NEB SCH ×4 (00:36→19:08)
[2022-04-19] MEDS: RILUZOLE 50 MG GT SCH ×2 (05:49→17:43)
[2022-04-19] MEDS: GABAPENTIN 300 MG/6 ML GT SCH ×3 (05:49→21:52)
[2022-04-19] MEDS: OMEPRAZOLE 20 MG CAPSULE.DR GT SCH (05:49)
[2022-04-19] MEDS: DOCUSATE SODIUM 100 MG/10 ML LIQUID UDC GT SCH ×2 (05:49→06:06)
[2022-04-19] MEDS: HYDROGEN PEROXIDE 3% 118 ML BOTTLE TP SCH ×2 (09:15→19:08)
[2022-04-19] MEDS: OLOPATADINE 0.1% OPHT DROP 5 ML BOTTLE EACHEYE SCH ×2 (09:32→17:42)
[2022-04-19] MEDS: POLYVINYL ALCOHOL OPHT DROPS 15 ML BOTTLE EACHEYE SCH ×4 (09:32→21:47)
[2022-04-19] MEDS: CHLORHEXIDINE GLUCONATE 15 ML MOUTHWASH MM SCH ×2 (09:33→17:43)
[2022-04-19] MEDS: FLUOXETINE HCL 20 MG CAPSULE GT SCH (09:33)
[2022-04-19] MEDS: BACLOFEN 20 MG TABLET GT SCH ×3 (09:33→17:42)
[2022-04-19] MEDS: LORATADINE 10 MG TABLET GT SCH (09:33)
[2022-04-19] MEDS: FLUTICASONE PROP NASAL SPRAY 16 GM BOTTLE NS SCH (09:35)
[2022-04-19] MEDS: ENOXAPARIN SODIUM 40 MG/0.4 ML DISP.SYRIN SQ SCH (09:35)
[2022-04-19] MEDS: REMEDY ESSENTIAL ZINC PASTE 113 GM TP SCH ×2 (09:36→21:49)
[2022-04-19] MEDS: DICLOFENAC 1% GEL TP SCH ×4 (09:36→21:49)
[2022-04-19] MEDS: HYDROCODONE/APAP 10-325 MG TABLET GT PRN ×2 (09:39→17:25)
[2022-04-19] MEDS: hydrOXYzine HCL 25 MG TABLET GT SCH (21:47)
[2022-04-19] MEDS: ATORVASTATIN 20 MG TABLET GT SCH (21:48)
[2022-04-19] MEDS: MELATONIN 3 MG TABLET GT SCH (21:48)
[2022-04-20] MEDS: IPRATROPIUM BROMIDE 0.5 MG/2.5 ML NEBU NEB SCH ×4 (00:34→19:04)
[2022-04-20] MEDS: OMEPRAZOLE 20 MG CAPSULE.DR GT SCH (06:33)
[2022-04-20] MEDS: RILUZOLE 50 MG GT SCH ×2 (06:33→17:36)
[2022-04-20] MEDS: GABAPENTIN 300 MG/6 ML GT SCH ×3 (06:33→21:53)
[2022-04-20] MEDS: DOCUSATE SODIUM 100 MG/10 ML LIQUID UDC GT SCH (06:33)
[2022-04-20] MEDS: HYDROGEN PEROXIDE 3% 118 ML BOTTLE TP SCH ×2 (07:40→19:04)
[2022-04-20] MEDS: LORATADINE 10 MG TABLET GT SCH (09:36)
[2022-04-20] MEDS: OLOPATADINE 0.1% OPHT DROP 5 ML BOTTLE EACHEYE SCH ×2 (09:36→17:36)
[2022-04-20] MEDS: POLYVINYL ALCOHOL OPHT DROPS 15 ML BOTTLE EACHEYE SCH ×4 (09:36→21:50)
[2022-04-20] MEDS: BACLOFEN 20 MG TABLET GT SCH ×3 (09:37→17:36)
[2022-04-20] MEDS: CHLORHEXIDINE GLUCONATE 15 ML MOUTHWASH MM SCH ×2 (09:38→17:36)
[2022-04-20] MEDS: REMEDY ESSENTIAL ZINC PASTE 113 GM TP SCH ×2 (09:38→21:55)
[2022-04-20] MEDS: FLUOXETINE HCL 20 MG CAPSULE GT SCH (09:38)
[2022-04-20] MEDS: DICLOFENAC 1% GEL TP SCH ×4 (09:38→21:55)
[2022-04-20] MEDS: FLUTICASONE PROP NASAL SPRAY 16 GM BOTTLE NS SCH (09:38)
[2022-04-20] MEDS: HYDROCODONE/APAP 10-325 MG TABLET GT PRN ×2 (09:45→17:30)
[2022-04-20] MEDS: ENOXAPARIN SODIUM 40 MG/0.4 ML DISP.SYRIN SQ SCH (09:59)
[2022-04-20] MEDS ORDERED: MAGNESIUM HYDROXIDE 30 ML LIQUID UDC GT ONE (10:15)
[2022-04-20] MEDS: LORAZEPAM 1 MG TABLET GT PRN (17:05)
[2022-04-20] MEDS: hydrOXYzine HCL 25 MG TABLET GT SCH (21:50)
[2022-04-20] MEDS: ATORVASTATIN 20 MG TABLET GT SCH (21:54)
[2022-04-20] MEDS: MELATONIN 3 MG TABLET GT SCH (21:54)
[2022-04-21] MEDS: IPRATROPIUM BROMIDE 0.5 MG/2.5 ML NEBU NEB SCH ×4 (01:10→19:24)
[2022-04-21] MEDS: LORAZEPAM 1 MG TABLET GT PRN ×2 (04:30→21:00)
[2022-04-21] MEDS: HYDROCODONE/APAP 10-325 MG TABLET GT PRN ×4 (04:30→18:23)
[2022-04-21] MEDS: DOCUSATE SODIUM 100 MG/10 ML LIQUID UDC GT SCH (06:10)
[2022-04-21] MEDS: GABAPENTIN 300 MG/6 ML GT SCH ×3 (06:10→20:37)
[2022-04-21] MEDS: RILUZOLE 50 MG GT SCH ×2 (06:11→17:22)
[2022-04-21] MEDS: OMEPRAZOLE 20 MG CAPSULE.DR GT SCH (06:11)
[2022-04-21] MEDS: LORATADINE 10 MG TABLET GT SCH (09:08)
[2022-04-21] MEDS: POLYVINYL ALCOHOL OPHT DROPS 15 ML BOTTLE EACHEYE SCH ×4 (09:08→20:34)
[2022-04-21] MEDS: OLOPATADINE 0.1% OPHT DROP 5 ML BOTTLE EACHEYE SCH ×2 (09:08→17:22)
[2022-04-21] MEDS: CHLORHEXIDINE GLUCONATE 15 ML MOUTHWASH MM SCH ×2 (09:09→17:22)
[2022-04-21] MEDS: BACLOFEN 20 MG TABLET GT SCH ×3 (09:09→17:22)
[2022-04-21] MEDS: HYDROGEN PEROXIDE 3% 118 ML BOTTLE TP SCH ×2 (09:09→21:49)
[2022-04-21] MEDS: FLUTICASONE PROP NASAL SPRAY 16 GM BOTTLE NS SCH (09:09)
[2022-04-21] MEDS: FLUOXETINE HCL 20 MG CAPSULE GT SCH (09:09)
[2022-04-21] MEDS: REMEDY ESSENTIAL ZINC PASTE 113 GM TP SCH ×2 (09:10→20:40)
[2022-04-21] MEDS: ENOXAPARIN SODIUM 40 MG/0.4 ML DISP.SYRIN SQ SCH (09:10)
[2022-04-21] MEDS: DICLOFENAC 1% GEL TP SCH ×3 (09:10→17:22)
[2022-04-21] MEDS: hydrOXYzine HCL 25 MG TABLET GT SCH (20:34)
[2022-04-21] MEDS: ATORVASTATIN 20 MG TABLET GT SCH (20:40)
[2022-04-21] MEDS: MELATONIN 3 MG TABLET GT SCH (20:40)
[2022-04-22] MEDS: IPRATROPIUM BROMIDE 0.5 MG/2.5 ML NEBU NEB SCH ×4 (01:30→19:25)
[2022-04-22] MEDS: JEVITY 1.2 1000 ML LIQUID GT PRN (03:11)
[2022-04-22] MEDS: ONDANSETRON HCL 4 MG TABLET GT PRN (03:21)
[2022-04-22] MEDS: DOCUSATE SODIUM 100 MG/10 ML LIQUID UDC GT SCH (05:20)
[2022-04-22] MEDS: GABAPENTIN 300 MG/6 ML GT SCH ×3 (05:20→21:44)
[2022-04-22] MEDS: OMEPRAZOLE 20 MG CAPSULE.DR GT SCH (05:20)
[2022-04-22] MEDS: RILUZOLE 50 MG GT SCH ×2 (05:20→17:43)
[2022-04-22] MEDS: HYDROCODONE/APAP 10-325 MG TABLET GT PRN ×3 (08:00→17:00)
[2022-04-22] MEDS: BACLOFEN 20 MG TABLET GT SCH ×3 (08:25→16:37)
[2022-04-22] MEDS: ENOXAPARIN SODIUM 40 MG/0.4 ML DISP.SYRIN SQ SCH (08:25)
[2022-04-22] MEDS: OLOPATADINE 0.1% OPHT DROP 5 ML BOTTLE EACHEYE SCH ×2 (08:25→16:37)
[2022-04-22] MEDS: CHLORHEXIDINE GLUCONATE 15 ML MOUTHWASH MM SCH ×2 (08:25→16:37)
[2022-04-22] MEDS: FLUOXETINE HCL 20 MG CAPSULE GT SCH (08:25)
[2022-04-22] MEDS: LORATADINE 10 MG TABLET GT SCH (08:25)
[2022-04-22] MEDS: POLYVINYL ALCOHOL OPHT DROPS 15 ML BOTTLE EACHEYE SCH ×4 (08:25→21:44)
[2022-04-22] MEDS: FLUTICASONE PROP NASAL SPRAY 16 GM BOTTLE NS SCH (08:25)
[2022-04-22] MEDS: REMEDY ESSENTIAL ZINC PASTE 113 GM TP SCH ×2 (08:26→21:45)
[2022-04-22] MEDS: LIDOCAINE 5% PATCH TD SCH (09:00)
[2022-04-22] MEDS: HYDROGEN PEROXIDE 3% 118 ML BOTTLE TP SCH ×2 (09:19→20:57)
[2022-04-22] MEDS: LORAZEPAM 1 MG TABLET GT PRN (21:00)
[2022-04-22] MEDS: MELATONIN 3 MG TABLET GT SCH (21:44)
[2022-04-22] MEDS: ATORVASTATIN 20 MG TABLET GT SCH (21:44)
[2022-04-22] MEDS: hydrOXYzine HCL 25 MG TABLET GT SCH (21:44)
[2022-04-23] MEDS: IPRATROPIUM BROMIDE 0.5 MG/2.5 ML NEBU NEB SCH ×4 (00:38→19:19)
[2022-04-23] MEDS: JEVITY 1.2 1000 ML LIQUID GT PRN (02:53)
[2022-04-23] MEDS: OMEPRAZOLE 20 MG CAPSULE.DR GT SCH (05:36)
[2022-04-23] MEDS: DOCUSATE SODIUM 100 MG/10 ML LIQUID UDC GT SCH (05:36)
[2022-04-23] MEDS: GABAPENTIN 300 MG/6 ML GT SCH ×3 (05:36→21:27)
[2022-04-23] MEDS: RILUZOLE 50 MG GT SCH ×2 (05:36→18:02)
[2022-04-23] MEDS: HYDROGEN PEROXIDE 3% 118 ML BOTTLE TP SCH ×2 (08:07→21:28)
[2022-04-23] MEDS: CHLORHEXIDINE GLUCONATE 15 ML MOUTHWASH MM SCH ×2 (08:30→17:00)
[2022-04-23] MEDS: FLUOXETINE HCL 20 MG CAPSULE GT SCH (08:30)
[2022-04-23] MEDS: POLYVINYL ALCOHOL OPHT DROPS 15 ML BOTTLE EACHEYE SCH ×4 (08:30→21:13)
[2022-04-23] MEDS: LORATADINE 10 MG TABLET GT SCH (08:30)
[2022-04-23] MEDS: OLOPATADINE 0.1% OPHT DROP 5 ML BOTTLE EACHEYE SCH ×2 (08:30→17:00)
[2022-04-23] MEDS: BACLOFEN 20 MG TABLET GT SCH ×3 (08:30→17:00)
[2022-04-23] MEDS: HYDROCODONE/APAP 10-325 MG TABLET GT PRN ×3 (08:30→18:22)
[2022-04-23] MEDS: LIDOCAINE 5% PATCH TD SCH (08:31)
[2022-04-23] MEDS: REMEDY ESSENTIAL ZINC PASTE 113 GM TP SCH ×2 (08:31→21:15)
[2022-04-23] MEDS: FLUTICASONE PROP NASAL SPRAY 16 GM BOTTLE NS SCH (08:31)
[2022-04-23] MEDS: ENOXAPARIN SODIUM 40 MG/0.4 ML DISP.SYRIN SQ SCH (08:31)
[2022-04-23] MEDS: hydrOXYzine HCL 25 MG TABLET GT SCH (21:13)
[2022-04-23] MEDS: ATORVASTATIN 20 MG TABLET GT SCH (21:13)
[2022-04-23] MEDS: MELATONIN 3 MG TABLET GT SCH (21:15)
[2022-04-23] MEDS: LORAZEPAM 1 MG TABLET GT PRN (21:26)
[2022-04-24] MEDS: IPRATROPIUM BROMIDE 0.5 MG/2.5 ML NEBU NEB SCH ×4 (01:25→19:20)
[2022-04-24] MEDS: ACETAMINOPHEN 650 MG/20 ML UDC- SA PATIENTS-PAIN ONLY GT PRN ×2 (02:29→20:10)
[2022-04-24] MEDS: GABAPENTIN 300 MG/6 ML GT SCH ×3 (06:45→20:09)
[2022-04-24] MEDS: OMEPRAZOLE 20 MG CAPSULE.DR GT SCH (06:45)
[2022-04-24] MEDS: DOCUSATE SODIUM 100 MG/10 ML LIQUID UDC GT SCH (06:45)
[2022-04-24] MEDS: RILUZOLE 50 MG GT SCH ×2 (06:47→17:47)
[2022-04-24] MEDS: HYDROGEN PEROXIDE 3% 118 ML BOTTLE TP SCH ×2 (07:45→21:04)
[2022-04-24] MEDS: LORAZEPAM 1 MG TABLET GT PRN ×2 (08:07→20:15)
[2022-04-24] MEDS: LORATADINE 10 MG TABLET GT SCH (09:32)
[2022-04-24] MEDS: POLYVINYL ALCOHOL OPHT DROPS 15 ML BOTTLE EACHEYE SCH ×4 (09:32→20:09)
[2022-04-24] MEDS: OLOPATADINE 0.1% OPHT DROP 5 ML BOTTLE EACHEYE SCH ×2 (09:32→17:47)
[2022-04-24] MEDS: FLUOXETINE HCL 20 MG CAPSULE GT SCH (09:32)
[2022-04-24] MEDS: BACLOFEN 20 MG TABLET GT SCH ×3 (09:32→17:47)
[2022-04-24] MEDS: FLUTICASONE PROP NASAL SPRAY 16 GM BOTTLE NS SCH (09:33)
[2022-04-24] MEDS: CHLORHEXIDINE GLUCONATE 15 ML MOUTHWASH MM SCH ×2 (09:33→17:47)
[2022-04-24] MEDS: ENOXAPARIN SODIUM 40 MG/0.4 ML DISP.SYRIN SQ SCH (09:34)
[2022-04-24] MEDS: LIDOCAINE 5% PATCH TD SCH (09:38)
[2022-04-24] MEDS: REMEDY ESSENTIAL ZINC PASTE 113 GM TP SCH ×2 (09:39→20:10)
[2022-04-24] MEDS: HYDROCODONE/APAP 10-325 MG TABLET GT PRN ×2 (10:01→15:24)
[2022-04-24] MEDS: hydrOXYzine HCL 25 MG TABLET GT SCH (20:09)
[2022-04-24] MEDS: MELATONIN 3 MG TABLET GT SCH (20:09)
[2022-04-24] MEDS: ATORVASTATIN 20 MG TABLET GT SCH (20:09)
[2022-04-25] MEDS: IPRATROPIUM BROMIDE 0.5 MG/2.5 ML NEBU NEB SCH ×4 (00:36→19:20)
[2022-04-25] MEDS: JEVITY 1.2 1000 ML LIQUID GT PRN (01:00)
[2022-04-25] MEDS: ACETAMINOPHEN 650 MG/20 ML UDC- SA PATIENTS-PAIN ONLY GT PRN (02:59)
[2022-04-25] MEDS: DOCUSATE SODIUM 100 MG/10 ML LIQUID UDC GT SCH ×2 (05:20→21:00)
[2022-04-25] MEDS: GABAPENTIN 300 MG/6 ML GT SCH ×3 (05:20→21:00)
[2022-04-25] MEDS: RILUZOLE 50 MG GT SCH ×2 (05:21→18:26)
[2022-04-25] MEDS: OMEPRAZOLE 20 MG CAPSULE.DR GT SCH (05:21)
[2022-04-25] MEDS: LORATADINE 10 MG TABLET GT SCH (07:32)
[2022-04-25] MEDS: HYDROGEN PEROXIDE 3% 118 ML BOTTLE TP SCH ×2 (08:17→21:10)
[2022-04-25] MEDS: OLOPATADINE 0.1% OPHT DROP 5 ML BOTTLE EACHEYE SCH ×2 (09:00→16:48)
[2022-04-25] MEDS: REMEDY ESSENTIAL ZINC PASTE 113 GM TP SCH ×2 (09:00→21:00)
[2022-04-25] MEDS: POLYVINYL ALCOHOL OPHT DROPS 15 ML BOTTLE EACHEYE SCH ×4 (09:00→21:53)
[2022-04-25] MEDS: BACLOFEN 20 MG TABLET GT SCH ×3 (09:55→16:48)
[2022-04-25] MEDS: FLUTICASONE PROP NASAL SPRAY 16 GM BOTTLE NS SCH (09:55)
[2022-04-25] MEDS: CHLORHEXIDINE GLUCONATE 15 ML MOUTHWASH MM SCH ×2 (09:55→16:47)
[2022-04-25] MEDS: FLUOXETINE HCL 20 MG CAPSULE GT SCH (09:55)
[2022-04-25] MEDS: ENOXAPARIN SODIUM 40 MG/0.4 ML DISP.SYRIN SQ SCH (09:55)
[2022-04-25] MEDS: LIDOCAINE 5% PATCH TD SCH (09:55)
[2022-04-25] MEDS: HYDROCODONE/APAP 10-325 MG TABLET GT PRN ×2 (10:19→17:17)
[2022-04-25] MEDS: ATORVASTATIN 20 MG TABLET GT SCH (21:00)
[2022-04-25] MEDS: hydrOXYzine HCL 25 MG TABLET GT SCH (21:00)
[2022-04-25] MEDS: MELATONIN 3 MG TABLET GT SCH (21:00)
[2022-04-25] MEDS: LORAZEPAM 1 MG TABLET GT PRN (23:36)
[2022-04-26] MEDS: IPRATROPIUM BROMIDE 0.5 MG/2.5 ML NEBU NEB SCH ×4 (00:35→18:55)
[2022-04-26] MEDS: ACETAMINOPHEN 650 MG/20 ML UDC- SA PATIENTS-PAIN ONLY GT PRN (03:25)
[2022-04-26] MEDS: LORAZEPAM 1 MG TABLET GT PRN ×2 (04:31→21:28)
[2022-04-26] MEDS: RILUZOLE 50 MG GT SCH ×2 (06:00→17:31)
[2022-04-26] MEDS: OMEPRAZOLE 20 MG CAPSULE.DR GT SCH (06:00)
[2022-04-26] MEDS: GABAPENTIN 300 MG/6 ML GT SCH ×3 (06:00→20:07)
[2022-04-26] MEDS: FLUOXETINE HCL 20 MG CAPSULE GT SCH (08:17)
[2022-04-26] MEDS: OLOPATADINE 0.1% OPHT DROP 5 ML BOTTLE EACHEYE SCH ×2 (08:17→17:31)
[2022-04-26] MEDS: POLYVINYL ALCOHOL OPHT DROPS 15 ML BOTTLE EACHEYE SCH ×4 (08:17→21:11)
[2022-04-26] MEDS: CHLORHEXIDINE GLUCONATE 15 ML MOUTHWASH MM SCH ×2 (08:17→17:31)
[2022-04-26] MEDS: BACLOFEN 20 MG TABLET GT SCH ×3 (08:17→17:31)
[2022-04-26] MEDS: LORATADINE 10 MG TABLET GT SCH (08:17)
[2022-04-26] MEDS: ENOXAPARIN SODIUM 40 MG/0.4 ML DISP.SYRIN SQ SCH (08:18)
[2022-04-26] MEDS: FLUTICASONE PROP NASAL SPRAY 16 GM BOTTLE NS SCH (08:18)
[2022-04-26] MEDS: LIDOCAINE 5% PATCH TD SCH (08:20)
[2022-04-26] MEDS: REMEDY ESSENTIAL ZINC PASTE 113 GM TP SCH ×2 (08:20→21:12)
[2022-04-26] MEDS: HYDROCODONE/APAP 10-325 MG TABLET GT PRN ×3 (08:28→20:08)
[2022-04-26] MEDS: HYDROGEN PEROXIDE 3% 118 ML BOTTLE TP SCH ×2 (09:41→18:56)
[2022-04-26] MEDS: MAG HYDROX/AL HYDROX/SIMETH 30 ML LIQUID UDC GT PRN ×2 (14:30→22:20)
[2022-04-26] MEDS: ONDANSETRON HCL 4 MG TABLET GT PRN ×2 (15:04→22:36)
[2022-04-26 17:48] LABS: HEMATOCRIT 35.2 % (31.2-41.9); MEAN CORPUSCULAR HEMOGLOBIN 31.6 uug (24.7-32.8); PLATELET COUNT (AUTO) 223 K/uL (179-408)
[2022-04-26 18:01] LABS: CARBON DIOXIDE 35 mmol/L (21-32); CHLORIDE 97 mmol/L (98-107); CREATININE 0.3 mg/dL (0.6-1.3); GLUCOSE 142 mg/dL (74-106); POTASSIUM 3.8 mmol/L (3.5-5.1); UREA NITROGEN, BLOOD 14 mg/dL (7-18)
[2022-04-26] MEDS: MELATONIN 3 MG TABLET GT SCH (20:07)
[2022-04-26] MEDS: ATORVASTATIN 20 MG TABLET GT SCH (20:07)
[2022-04-26] MEDS: hydrOXYzine HCL 25 MG TABLET GT SCH (20:07)
[2022-04-26] MEDS: DOCUSATE SODIUM 100 MG/10 ML LIQUID UDC GT SCH (21:28)
[2022-04-27] MEDS: ACETAMINOPHEN 650 MG/20 ML UDC- SA PATIENTS-PAIN ONLY GT PRN (00:06)
[2022-04-27] MEDS: IPRATROPIUM BROMIDE 0.5 MG/2.5 ML NEBU NEB SCH (00:46)
[2022-04-27] MEDS ORDERED: IPRA12.9 IH (02:03)
[2022-04-27] MEDS ORDERED: ENOX40DI SQ (02:03)
[2022-04-27] MEDS ORDERED: LORA-259 GT (02:03)
[2022-04-27] MEDS ORDERED: LORA10TA7 GT (02:03)
[2022-04-27] MEDS ORDERED: GABA-536 GT (02:03)
[2022-04-27] MEDS ORDERED: HYDR-501 GT (02:03)
[2022-04-27] MEDS ORDERED: MELA3TAB41 GT (02:03)
[2022-04-27] MEDS ORDERED: ATOR20TA GT (02:03)
[2022-04-27] MEDS ORDERED: FLUT16SP16 NS (02:03)
[2022-04-27] MEDS ORDERED: LIDO30AD10 TD (02:03)
[2022-04-27] MEDS ORDERED: MAG355OR18 GT (02:03)
[2022-04-27] MEDS ORDERED: BACL20TA GT (02:03)
[2022-04-27] MEDS ORDERED: RILU50TA4 GT (02:03)
[2022-04-27] MEDS ORDERED: OMEP20CA15 GT (02:03)
[2022-04-27] MEDS ORDERED: HYDR-3980 GT (02:03)
[2022-04-27] MEDS ORDERED: BISA10SU61 RC (02:03)
[2022-04-27] MEDS ORDERED: GABA800T11 GT (02:03)
[2022-04-27] MEDS ORDERED: DEXT15DR6 EACHEYE (02:03)
[2022-04-27] MEDS ORDERED: OLOP5DRO15 EACHEYE (02:03)
[2022-04-27] MEDS ORDERED: MAGN400O6 GT (02:03)
[2022-04-27] MEDS ORDERED: NA P133E RC (02:03)
[2022-04-27] MEDS ORDERED: ACET-2154 GT (02:03)
[2022-04-27] MEDS ORDERED: ONDA-104 GT (02:03)
[2022-04-27] MEDS ORDERED: FLUO20CA36 GT (02:03)
[2022-04-27] MEDS ORDERED: CHLO473M3 MM (02:03)
[2022-04-27] MEDS ORDERED: DOCU100C36 GT (02:03)
[2022-04-27] MEDS ORDERED: HYDR237S13 TP (02:03)
[2022-04-28] MEDS ORDERED: IPRA0.2S6 NEB (14:55)
[2022-04-30] MEDS ORDERED: CEFAZOLIN 1 G VIAL IM ONE (12:39)
[2022-04-30] MEDS ORDERED: LIDOCAINE-MPF 2% 5 ML VIAL IJ ONE (12:39)
[2022-04-30] MEDS ORDERED: PROPOFOL 200 MG/20 ML BOTTLE IV ONE (12:39)
[2023-02-20] MEDS ORDERED: TUBERCULIN,PURIF.PROT.DERIV. 5 TU/0.1 ML TEST ID SCH (12:00)
== END 2022-05-06 18:37 | disposition short-term general hospital (02) | DRG 130 ==
LOC: SA → UNDOADMIN 03-16 07:15
PROVIDERS: ADMIT Internal Medicine; ATTEND Internal Medicine
PROC: 5A1955Z Respiratory Ventilation, Greater than 96 Consecutive Hours (ICD-10-PCS; principal; 2022-03-14)
DX: J96.11 Chronic respiratory failure with hypoxia (principal); G12.21 Amyotrophic lateral sclerosis; R53.2 Functional quadriplegia; E44.0 Moderate protein-calorie malnutrition; D68.59 Other primary thrombophilia; R62.7 Adult failure to thrive; Z93.0 Tracheostomy status; J96.12 Chronic respiratory failure with hypercapnia; Z93.1 Gastrostomy status; Z99.11 Dependence on respirator [ventilator] status; Z86.718 Personal history of other venous thrombosis and embolism; Z79.01 Long term (current) use of anticoagulants; R13.10 Dysphagia, unspecified; Z68.1 Body mass index [BMI] 19.9 or less, adult; E78.5 Hyperlipidemia, unspecified; F41.0 Panic disorder [episodic paroxysmal anxiety]; R33.9 Retention of urine, unspecified; Z20.822 Contact with and (suspected) exposure to COVID-19; L60.0 Ingrowing nail; I51.7 Cardiomegaly; Z83.3 Family history of diabetes mellitus; Z82.49 Family history of ischemic heart disease and other diseases of the circulatory system; M79.673 Pain in unspecified foot; Z79.899 Other long term (current) drug therapy; M54.50 Low back pain, unspecified; Z93.6 Other artificial openings of urinary tract status; Z86.39 Personal history of other endocrine, nutritional and metabolic disease; F32.A Depression, unspecified
CPT/HCPCS: 36415; 71045; 72100; 72170; 83735; 84100; 84443; 85025; 94003; 94640; 99082-TC; A4663; A6209; J0690; J1650; J3490; U0003

== ENCOUNTER 2022-04-27 01:16 | Inpatient (IN) | payer OTHER ==
[~2022-04-27] VITALS: Ht 165.1 cm; Wt 40.9 kg
[2022-04-27] MEDS ORDERED: MAGNESIUM SULFATE/D5W 100 ML ONE (01:37)
[2022-04-27] MEDS ORDERED: diphenhydrAMINE 50 MG/1 ML VIAL ONE (01:37)
[2022-04-27] MEDS ORDERED: KETOROLAC TROMETHAMINE 30 MG INJ ONE (01:38)
[2022-04-27] MEDS ORDERED: METOCLOPRAMIDE HCL 10 MG/2 ML VIAL ONE (01:38)
[2022-04-27] MEDS ORDERED: KETOROLAC TROMETHAMINE 30 MG INJ IVP ONE (01:45)
[2022-04-27] MEDS ORDERED: diphenhydrAMINE 50 MG/1 ML VIAL IV ONE (01:45)
[2022-04-27] MEDS ORDERED: METOCLOPRAMIDE HCL 10 MG/2 ML VIAL IV ONE (01:45)
[2022-04-27] MEDS ORDERED: MAGNESIUM SULFATE/D5W 100 ML IV SCH (01:45)
[2022-04-27] MEDS ORDERED: IV NS 1000 ML 1,000 ML IV ONE ×2 (01:45→05:30)
[2022-04-27] MEDS ORDERED: MAGN400O6 GT (02:03)
[2022-04-27] MEDS ORDERED: HYDR-3980 GT (02:03)
[2022-04-27] MEDS ORDERED: MAG355OR18 GT (02:03)
[2022-04-27] MEDS ORDERED: RILU50TA4 GT (02:03)
[2022-04-27] MEDS ORDERED: IPRA12.9 IH (02:03)
[2022-04-27] MEDS ORDERED: BACL20TA GT (02:03)
[2022-04-27] MEDS ORDERED: HYDR-501 GT (02:03)
[2022-04-27] MEDS ORDERED: ONDA-104 GT (02:03)
[2022-04-27] MEDS ORDERED: LIDO30AD10 TD (02:03)
[2022-04-27] MEDS ORDERED: DOCU100C36 GT (02:03)
[2022-04-27] MEDS ORDERED: HYDR237S13 TP (02:03)
[2022-04-27] MEDS ORDERED: OLOP5DRO15 EACHEYE (02:03)
[2022-04-27] MEDS ORDERED: GABA-536 GT (02:03)
[2022-04-27] MEDS ORDERED: CHLO473M3 MM (02:03)
[2022-04-27] MEDS ORDERED: MELA3TAB41 GT (02:03)
[2022-04-27] MEDS ORDERED: ENOX40DI SQ (02:03)
[2022-04-27] MEDS ORDERED: FLUT16SP16 NS (02:03)
[2022-04-27] MEDS ORDERED: BISA10SU61 RC (02:03)
[2022-04-27] MEDS ORDERED: NA P133E RC (02:03)
[2022-04-27] MEDS ORDERED: ATOR20TA GT (02:03)
[2022-04-27] MEDS ORDERED: LORA10TA7 GT (02:03)
[2022-04-27] MEDS ORDERED: GABA800T11 GT (02:03)
[2022-04-27] MEDS ORDERED: OMEP20CA15 GT (02:03)
[2022-04-27] MEDS ORDERED: ACET-2154 GT (02:03)
[2022-04-27] MEDS ORDERED: FLUO20CA36 GT (02:03)
[2022-04-27] MEDS ORDERED: LORA-259 GT (02:03)
[2022-04-27] MEDS ORDERED: DEXT15DR6 EACHEYE (02:03)
[2022-04-27] MEDS ORDERED: PIPERACILLIN SODIUM/TAZOBACTAM 3.375 G in IV DEXTROSE 5% 50 ML IV ONE (03:45)
[2022-04-27] MEDS ORDERED: PIPERACILLIN/TAZOBACTAM/D5W 50 ML IV ONE ×2 (03:50→09:05)
[2022-04-27 04:24] LABS: HEMATOCRIT 27.4 % (31.2-41.9); MEAN CORPUSCULAR HEMOGLOBIN 31.3 uug (24.7-32.8); MEAN CORPUSCULAR VOLUME 94.7 fL (75.5-95.3); PLATELET COUNT (AUTO) 204 K/uL (179-408)
[2022-04-27 04:49] LABS: ALANINE AMINOTRANSFERASE 376 U/L (14-59); ALKALINE PHOSPHATASE 581 U/L (50-136); ASPARTATE AMINOTRANSFERASE 342 U/L (15-37); BILIRUBIN,DIRECT 1.7 mg/dL (0.0-0.2); BILIRUBIN,TOTAL 2.1 mg/dL (0.2-1.0); CARBON DIOXIDE 31 mmol/L (21-32); CHLORIDE 102 mmol/L (98-107); CREATININE 0.3 mg/dL (0.6-1.3); GLUCOSE 154 mg/dL (74-106); LIPASE 85 U/L (73-393); TOTAL PROTEIN, SERUM 6.5 g/dL (6.4-8.2); UREA NITROGEN, BLOOD 13 mg/dL (7-18)
[2022-04-27] MEDS ORDERED: MAGNESIUM HYDROXIDE 30 ML LIQUID UDC PO PRN (05:45)
[2022-04-27] MEDS ORDERED: IV NS 1000 ML 1,000 ML IV PRN (05:45)
[2022-04-27] MEDS ORDERED: HYDROCODONE/APAP 5-325MG TABLET PO PRN (05:45)
[2022-04-27] MEDS ORDERED: ACETAMINOPHEN 325 MG TABLET PO PRN (05:45)
[2022-04-27] MEDS ORDERED: ONDANSETRON 4 MG/2 ML VIAL IV PRN (05:45)
[2022-04-27] MEDS ORDERED: REMEDY ESSENTIAL ZINC PASTE 113 GM TP PRN (05:45)
[2022-04-27] MEDS ORDERED: PIPERACILLIN SODIUM/TAZOBACTAM 3.375 G in IV DEXTROSE 5% 50 ML IV SCH (06:00)
[2022-04-27] MEDS ORDERED: PANTOPRAZOLE SODIUM 40 MG VIAL ONE (09:04)
[2022-04-27] MEDS: PANTOPRAZOLE SODIUM 40 MG VIAL IV SCH (09:09)
[2022-04-27] MEDS: PIPERACILLIN SODIUM/TAZOBACTAM 3.375 G in IV DEXTROSE 5% 100 ML IV SCH ×2 (10:06→18:16)
[2022-04-27] MEDS ORDERED: ACETAMINOPHEN 325 MG TABLET ONE (11:11)
[2022-04-27] MEDS ORDERED: MORPHINE SULFATE 4 MG/1 ML DISP.SYRIN ONE (18:35)
[2022-04-27] MEDS: MORPHINE SULFATE 4 MG/1 ML DISP.SYRIN IV PRN (18:37)
[2022-04-27 21:11] VITALS: BP 113/59
[2022-04-27] MEDS: IV D5/ 0.9% NACL 1,000 ML IV PRN (21:11)
[2022-04-28] MEDS: LORAZEPAM 2 MG/1 ML VIAL IV PRN ×2 (00:49→20:46)
[2022-04-28] MEDS: PIPERACILLIN SODIUM/TAZOBACTAM 3.375 G in IV DEXTROSE 5% 100 ML IV SCH ×3 (01:36→17:51)
[2022-04-28 05:39] VITALS: BP 117/79
[2022-04-28 06:15] LABS: ABG BASE EXCESS 6.5 mmol/L; ABG PCO2 44.1 mmHg (35.0-45.0); ABG PH 7.465 (7.350-7.450); ABG PO2 222.8 mmHg (75.0-100.0); ABG SITE RIGHT RADIAL; ABG TOTAL HEMOGLOBIN 11.8 G/dL (12.0-16.0); MetHb 0.3 % (0.0-1.5); O2Hb 98.4 % (94.0-97.0); VENT MODE VENT - PCONTROL
[2022-04-28 06:56] LABS: MEAN CORPUSCULAR HEMOGLOBIN 31.2 uug (24.7-32.8); MEAN CORPUSCULAR VOLUME 94.1 fL (75.5-95.3); PLATELET COUNT (AUTO) 231 K/uL (179-408)
[2022-04-28 07:48] VITALS: BP 98/59
[2022-04-28] MEDS: PANTOPRAZOLE SODIUM 40 MG VIAL IV SCH (09:17)
[2022-04-28] MEDS: IV D5/ 0.9% NACL 1,000 ML IV PRN (09:17)
[2022-04-28 11:26] VITALS: BP 111/56
[2022-04-28 12:43] LABS: CARBON DIOXIDE 31 mmol/L (21-32); CHLORIDE 101 mmol/L (98-107)
[2022-04-28] MEDS: MORPHINE SULFATE 4 MG/1 ML DISP.SYRIN IV PRN ×2 (12:43→21:50)
[2022-04-28 12:44] LABS: ALKALINE PHOSPHATASE 405 U/L (50-136); ASPARTATE AMINOTRANSFERASE 119 U/L (15-37); BILIRUBIN,DIRECT 0.8 mg/dL (0.0-0.2); BILIRUBIN,TOTAL 1.2 mg/dL (0.2-1.0); CREATININE 0.4 mg/dL (0.6-1.3); GLUCOSE 78 mg/dL (74-106); PHOSPHOROUS 2.7 mg/dL (2.5-4.9); UREA NITROGEN, BLOOD 7 mg/dL (7-18)
[2022-04-28 12:45] LABS: ALANINE AMINOTRANSFERASE 259 U/L (14-59); CHOLESTEROL 88 mg/dL (<200); HDL CHOLESTEROL 30 mg/dL (40-60); LIPASE 3928 U/L (73-393); MAGNESIUM 2.1 mg/dL (1.8-2.4); TOTAL PROTEIN, SERUM 6.7 g/dL (6.4-8.2); TRIGLYCERIDES 79 MG/DL (30-150)
[2022-04-28 12:50] LABS: POTASSIUM 2.8 mmol/L (3.5-5.1)
[2022-04-28] MEDS ORDERED: IPRA0.2S6 NEB (14:55)
[2022-04-28 15:16] VITALS: BP 111/51
[2022-04-28 16:53] LABS: THYROID STIMULATING HORMONE 0.442 mIU/mL (0.358-3.740)
[2022-04-28] MEDS: POTASSIUM CHLORIDE 50 ML IV SCH ×2 (17:44→18:49)
[2022-04-28 20:00] VITALS: BP 126/77
[2022-04-29] VITALS: BP 111/60
[2022-04-29] MEDS: PIPERACILLIN SODIUM/TAZOBACTAM 3.375 G in IV DEXTROSE 5% 100 ML IV SCH ×3 (01:11→17:46)
[2022-04-29] MEDS: IV D5/ 0.9% NACL 1,000 ML IV PRN (04:55)
[2022-04-29 06:00] VITALS: BP 111/64
[2022-04-29 07:12] LABS: HEMATOCRIT 27.5 % (31.2-41.9); MEAN CORPUSCULAR HEMOGLOBIN 31.4 uug (24.7-32.8); MEAN CORPUSCULAR VOLUME 93.3 fL (75.5-95.3); PLATELET COUNT (AUTO) 262 K/uL (179-408)
[2022-04-29 07:30] VITALS: BP 119/78
[2022-04-29 07:43] LABS: ALANINE AMINOTRANSFERASE 149 U/L (14-59); ALKALINE PHOSPHATASE 332 U/L (50-136); ASPARTATE AMINOTRANSFERASE 44 U/L (15-37); BILIRUBIN,DIRECT 0.4 mg/dL (0.0-0.2); BILIRUBIN,TOTAL 0.7 mg/dL (0.2-1.0); CARBON DIOXIDE 31 mmol/L (21-32); GLUCOSE 104 mg/dL (74-106); MAGNESIUM 1.8 mg/dL (1.8-2.4); PHOSPHOROUS 3.1 mg/dL (2.5-4.9); TOTAL PROTEIN, SERUM 6.7 g/dL (6.4-8.2); UREA NITROGEN, BLOOD 6 mg/dL (7-18)
[2022-04-29 08:08] LABS: CHLORIDE 99 mmol/L (98-107); CREATININE 0.2 mg/dL (0.6-1.3)
[2022-04-29] MEDS: LORAZEPAM 2 MG/1 ML VIAL IV PRN ×3 (08:29→22:20)
[2022-04-29] MEDS: PANTOPRAZOLE SODIUM 40 MG VIAL IV SCH (08:29)
[2022-04-29 08:49] LABS: LIPASE 2176 U/L (73-393)
[2022-04-29 08:55] LABS: POTASSIUM 2.5 mmol/L (3.5-5.1)
[2022-04-29] MEDS: POTASSIUM CHLORIDE 10 MEQ, LIDOCAINE 1% 1 ML in IV DEXTROSE 5% 100 ML IV SCH ×6 (11:48→17:21)
[2022-04-29] MEDS: IV DEXTROSE 5%-0.9%NS+20MeqKCL 1,000 ML IV PRN (11:48)
[2022-04-29 12:00] VITALS: BP 112/76
[2022-04-29] MEDS: MORPHINE SULFATE 4 MG/1 ML DISP.SYRIN IV PRN ×2 (12:16→20:04)
[2022-04-29 16:00] VITALS: BP 118/77
[2022-04-29 20:00] VITALS: BP 131/83
[2022-04-30] VITALS (13 sets, daily range): BP systolic 98–120; BP diastolic 66–84
[2022-04-30] MEDS: MORPHINE SULFATE 4 MG/1 ML DISP.SYRIN IV PRN ×6 (01:01→22:13)
[2022-04-30] MEDS: PIPERACILLIN SODIUM/TAZOBACTAM 3.375 G in IV DEXTROSE 5% 100 ML IV SCH ×3 (01:38→17:04)
[2022-04-30 07:58] LABS: HEMATOCRIT 30.9 % (31.2-41.9); MEAN CORPUSCULAR HEMOGLOBIN 31.4 uug (24.7-32.8); MEAN CORPUSCULAR VOLUME 92.9 fL (75.5-95.3); PLATELET COUNT (AUTO) 345 K/uL (179-408)
[2022-04-30 08:12] LABS: CARBON DIOXIDE 31 mmol/L (21-32); CHLORIDE 101 mmol/L (98-107); CREATININE 0.2 mg/dL (0.6-1.3); GLUCOSE 130 mg/dL (74-106); POTASSIUM 3.6 mmol/L (3.5-5.1); UREA NITROGEN, BLOOD 4 mg/dL (7-18)
[2022-04-30 08:18] LABS: ALANINE AMINOTRANSFERASE 112 U/L (14-59); ALKALINE PHOSPHATASE 317 U/L (50-136); ASPARTATE AMINOTRANSFERASE 17 U/L (15-37); BILIRUBIN,TOTAL 0.7 mg/dL (0.2-1.0); LIPASE 897 U/L (73-393); PHOSPHOROUS 3.8 mg/dL (2.5-4.9); TOTAL PROTEIN, SERUM 7.5 g/dL (6.4-8.2)
[2022-04-30] MEDS: PANTOPRAZOLE SODIUM 40 MG VIAL IV SCH (09:57)
[2022-04-30] MEDS: IV DEXTROSE 5%-0.9%NS+20MeqKCL 1,000 ML IV PRN ×2 (10:00→19:00)
[2022-04-30] MEDS ORDERED: LIDOCAINE HCL 1% 20 ML VIAL ONE (10:28)
[2022-04-30] MEDS ORDERED: MIDAZOLAM HCL 2 MG/2 ML VIAL ONE (11:15)
[2022-04-30] MEDS ORDERED: IV NORMAL SALINE 250 ML IV ONE (11:48)
[2022-04-30] MEDS ORDERED: SWABABLE VALVE TRANSFER SET EA MC ONE (11:49)
[2022-04-30] MEDS: LORAZEPAM 2 MG/1 ML VIAL IV PRN (21:10)
[2022-05-01] VITALS: BP 114/83
[2022-05-01] MEDS: MORPHINE SULFATE 4 MG/1 ML DISP.SYRIN IV PRN ×5 (02:05→20:35)
[2022-05-01] MEDS: PIPERACILLIN SODIUM/TAZOBACTAM 3.375 G in IV DEXTROSE 5% 100 ML IV SCH ×3 (02:14→17:11)
[2022-05-01] MEDS: LORAZEPAM 2 MG/1 ML VIAL IV PRN ×2 (02:56→12:18)
[2022-05-01 04:00] VITALS: BP 114/75
[2022-05-01] MEDS: IV DEXTROSE 5%-0.9%NS+20MeqKCL 1,000 ML IV PRN ×2 (06:04→17:43)
[2022-05-01 08:00] VITALS: BP 129/67
[2022-05-01] MEDS: PANTOPRAZOLE SODIUM 40 MG VIAL IV SCH (09:01)
[2022-05-01 12:00] VITALS: BP 132/75
[2022-05-01 15:50] VITALS: BP 117/80
[2022-05-02 00:30] VITALS: BP 142/94
[2022-05-02] MEDS: MORPHINE SULFATE 4 MG/1 ML DISP.SYRIN IV PRN ×3 (00:57→22:51)
[2022-05-02] MEDS: PIPERACILLIN SODIUM/TAZOBACTAM 3.375 G in IV DEXTROSE 5% 100 ML IV SCH ×4 (01:55→17:00)
[2022-05-02] MEDS: LORAZEPAM 2 MG/1 ML VIAL IV PRN ×3 (01:56→12:14)
[2022-05-02] MEDS: IV DEXTROSE 5%-0.9%NS+20MeqKCL 1,000 ML IV PRN ×2 (04:00→17:43)
[2022-05-02 07:57] VITALS: BP 131/91
[2022-05-02] MEDS: PANTOPRAZOLE SODIUM 40 MG VIAL IV SCH (08:08)
[2022-05-02 12:11] VITALS: BP 132/88
[2022-05-02] MEDS ORDERED: LORAZEPAM 2 MG/1 ML VIAL IV ONE (15:15)
[2022-05-02 16:26] VITALS: BP 126/82
[2022-05-02 19:45] VITALS: BP 117/80
[2022-05-02] MEDS: IPRATROPIUM BROMIDE 0.5 MG/2.5 ML NEBU NEB SCH (20:08)
[2022-05-02 22:48] VITALS: BP 135/95
[2022-05-03] VITALS (7 sets, daily range): BP systolic 108–126; BP diastolic 75–90
[2022-05-03] MEDS: IPRATROPIUM BROMIDE 0.5 MG/2.5 ML NEBU NEB SCH ×4 (00:44→19:53)
[2022-05-03] MEDS: PIPERACILLIN SODIUM/TAZOBACTAM 3.375 G in IV DEXTROSE 5% 100 ML IV SCH ×3 (02:17→17:18)
[2022-05-03] MEDS: LORAZEPAM 2 MG/1 ML VIAL IV PRN ×2 (08:54→23:06)
[2022-05-03] MEDS: PANTOPRAZOLE SODIUM 40 MG VIAL IV SCH (08:54)
[2022-05-03] MEDS: LIDOCAINE 5% PATCH TD SCH (08:54)
[2022-05-03] MEDS: IV DEXTROSE 5%-0.9%NS+20MeqKCL 1,000 ML IV PRN ×2 (15:58→23:01)
[2022-05-04] VITALS: BP 115/84
[2022-05-04] MEDS: MORPHINE SULFATE 4 MG/1 ML DISP.SYRIN IV PRN ×2 (00:10→05:29)
[2022-05-04] MEDS: IPRATROPIUM BROMIDE 0.5 MG/2.5 ML NEBU NEB SCH ×4 (00:36→19:22)
[2022-05-04] MEDS: PIPERACILLIN SODIUM/TAZOBACTAM 3.375 G in IV DEXTROSE 5% 100 ML IV SCH ×3 (01:27→17:09)
[2022-05-04 04:00] VITALS: BP 124/81
[2022-05-04 07:13] LABS: HEMATOCRIT 34.7 % (31.2-41.9); MEAN CORPUSCULAR HEMOGLOBIN 31.1 uug (24.7-32.8); MEAN CORPUSCULAR VOLUME 94.6 fL (75.5-95.3); PLATELET COUNT (AUTO) 651 K/uL (179-408)
[2022-05-04 07:55] LABS: ALANINE AMINOTRANSFERASE 80 U/L (14-59); ALKALINE PHOSPHATASE 241 U/L (50-136); ASPARTATE AMINOTRANSFERASE 39 U/L (15-37); BILIRUBIN,TOTAL 0.6 mg/dL (0.2-1.0); CARBON DIOXIDE 28 mmol/L (21-32); CHLORIDE 108 mmol/L (98-107); CREATININE 0.2 mg/dL (0.6-1.3); GLUCOSE 108 mg/dL (74-106); LIPASE 838 U/L (73-393); MAGNESIUM 2.3 mg/dL (1.8-2.4); PHOSPHOROUS 3.4 mg/dL (2.5-4.9); POTASSIUM 3.6 mmol/L (3.5-5.1); TOTAL PROTEIN, SERUM 7.6 g/dL (6.4-8.2); UREA NITROGEN, BLOOD 10 mg/dL (7-18)
[2022-05-04 08:01] VITALS: BP 115/79
[2022-05-04] MEDS: PANTOPRAZOLE SODIUM 40 MG VIAL IV SCH (08:57)
[2022-05-04] MEDS: LIDOCAINE 5% PATCH TD SCH (08:58)
[2022-05-04 11:57] VITALS: BP 109/72
[2022-05-04 16:54] VITALS: BP 113/68
[2022-05-04] MEDS: IV DEXTROSE 5%-0.9%NS+20MeqKCL 1,000 ML IV PRN (17:13)
[2022-05-04] MEDS: LORAZEPAM 2 MG/1 ML VIAL IV PRN (19:35)
[2022-05-04 20:00] VITALS: BP 113/69
[2022-05-05] VITALS: BP 116/82
[2022-05-05] MEDS: IPRATROPIUM BROMIDE 0.5 MG/2.5 ML NEBU NEB SCH ×4 (00:58→20:20)
[2022-05-05] MEDS: PIPERACILLIN SODIUM/TAZOBACTAM 3.375 G in IV DEXTROSE 5% 100 ML IV SCH (01:34)
[2022-05-05] MEDS: LORAZEPAM 2 MG/1 ML VIAL IV PRN ×2 (01:35→22:57)
[2022-05-05 04:00] VITALS: BP 109/73
[2022-05-05 07:32] VITALS: BP 110/75
[2022-05-05] MEDS: PANTOPRAZOLE SODIUM 40 MG VIAL IV SCH (08:40)
[2022-05-05] MEDS: LIDOCAINE 5% PATCH TD SCH (08:40)
[2022-05-05] MEDS ORDERED: LORAZEPAM 2 MG/1 ML VIAL IV ONE (09:00)
[2022-05-05] MEDS ORDERED: PIPERACILLIN SODIUM/TAZOBACTAM 3.375 G in IV DEXTROSE 5% 50 ML IV SCH (09:00)
[2022-05-05] MEDS: IV DEXTROSE 5%-0.9%NS+20MeqKCL 1,000 ML IV PRN ×2 (10:09→23:02)
[2022-05-05 11:39] VITALS: BP 106/74
[2022-05-05 16:00] VITALS: BP 117/67
[2022-05-05 20:00] VITALS: BP 111/77
[2022-05-06] VITALS: BP 118/74
[2022-05-06] MEDS: IPRATROPIUM BROMIDE 0.5 MG/2.5 ML NEBU NEB SCH ×3 (00:50→12:59)
[2022-05-06] MEDS: MORPHINE SULFATE 4 MG/1 ML DISP.SYRIN IV PRN (01:55)
[2022-05-06 04:00] VITALS: BP 115/69
[2022-05-06 06:37] LABS: HEMATOCRIT 33.2 % (31.2-41.9); MEAN CORPUSCULAR VOLUME 93.9 fL (75.5-95.3); PLATELET COUNT (AUTO) 637 K/uL (179-408)
[2022-05-06 06:53] LABS: ALANINE AMINOTRANSFERASE 86 U/L (14-59); ALKALINE PHOSPHATASE 192 U/L (50-136); ASPARTATE AMINOTRANSFERASE 45 U/L (15-37); BILIRUBIN,TOTAL 0.5 mg/dL (0.2-1.0); CARBON DIOXIDE 28 mmol/L (21-32); CHLORIDE 105 mmol/L (98-107); CREATININE 0.3 mg/dL (0.6-1.3); GLUCOSE 114 mg/dL (74-106); POTASSIUM 3.4 mmol/L (3.5-5.1); TOTAL PROTEIN, SERUM 6.8 g/dL (6.4-8.2); UREA NITROGEN, BLOOD 3 mg/dL (7-18)
[2022-05-06 07:51] VITALS: BP 118/79
[2022-05-06] MEDS: PANTOPRAZOLE SODIUM 40 MG VIAL IV SCH (08:48)
[2022-05-06] MEDS: LIDOCAINE 5% PATCH TD SCH (08:48)
[2022-05-06] MEDS: IV DEXTROSE 5%-0.9%NS+20MeqKCL 1,000 ML IV PRN (09:58)
[2022-05-06] MEDS ORDERED: HYDROCODONE/APAP 10-325 MG TABLET GT PRN (11:30)
[2022-05-06] MEDS: POTASSIUM CHLORIDE 50 ML IV SCH ×2 (11:54→13:19)
[2022-05-06 12:00] VITALS: BP 117/85
[2022-05-06] MEDS ORDERED: POLYVINYL ALCOHOL OPHT DROPS 15 ML BOTTLE EACHEYE SCH (13:00)
[2022-05-06 16:00] VITALS: BP 117/80
== END 2022-05-06 17:25 | DRG 720 ==
LOC: ER 01:18 → TRANSITION 15:39 → TELE-TD3 20:02 → CCU 04-29 22:25 → TELE3 05-01 13:45 → TELE-TD3 05-01 14:05
PROVIDERS: ADMIT Student in an Organized Health Care Education/Training Program; ATTEND Internal Medicine
PROC: 5A1955Z Respiratory Ventilation, Greater than 96 Consecutive Hours (ICD-10-PCS; principal; 2022-04-27)
PROC: 05HC33Z Insertion of Infusion Device into Left Basilic Vein, Percutaneous Approach (ICD-10-PCS; 2022-04-29)
PROC: 0F9430Z Drainage of Gallbladder with Drainage Device, Percutaneous Approach (ICD-10-PCS; 2022-04-30)
DX: A41.9 Sepsis, unspecified organism (principal); G12.21 Amyotrophic lateral sclerosis; E43 Unspecified severe protein-calorie malnutrition; K80.00 Calculus of gallbladder with acute cholecystitis without obstruction; J96.12 Chronic respiratory failure with hypercapnia; K85.80 Other acute pancreatitis without necrosis or infection; R53.2 Functional quadriplegia; J96.11 Chronic respiratory failure with hypoxia; Z99.11 Dependence on respirator [ventilator] status; Z93.1 Gastrostomy status; Z86.718 Personal history of other venous thrombosis and embolism; Z93.0 Tracheostomy status; D68.59 Other primary thrombophilia; D63.8 Anemia in other chronic diseases classified elsewhere; E78.5 Hyperlipidemia, unspecified; R13.10 Dysphagia, unspecified; Z82.49 Family history of ischemic heart disease and other diseases of the circulatory system; Z83.3 Family history of diabetes mellitus; E87.6 Hypokalemia; K83.09 Other cholangitis; M54.50 Low back pain, unspecified; F41.9 Anxiety disorder, unspecified; F32.A Depression, unspecified; L60.0 Ingrowing nail; Z68.1 Body mass index [BMI] 19.9 or less, adult
CPT/HCPCS: 36415; 36600; 71045; 74150; 82803; 83605; 83690; 83735; 84100; 84443; 85025; 85610; 85730; 94003; 94640; 94760; 99082-TC; A4663; A6213; C9113; G0378; J1200; J1885; J2001; J2060; J2250; J2270; J2405; J2543; J2765; J3475; J3480; J3490; J3590; J7040; J7042

== ENCOUNTER 2022-05-06 18:25 | Inpatient (IN) | payer OTHER ==
[~2022-05-06] VITALS: Ht 157.5 cm; Wt 44.0 kg
[2022-05-06 17:45] VITALS: BP 121/76; TEMP 98.2; O2SAT 99
[~2022-05-06 18:25] MED LIST: ACET-2154 GT; ATOR20TA GT; BACL20TA GT; BISA10SU61 RC; CHLO473M3 MM; DEXT15DR6 EACHEYE; DOCU100C36 GT; ENOX40DI SQ; FLUO20CA36 GT; FLUT16SP16 NS; GABA-536 GT; GABA800T11 GT; HYDR-3980 GT; HYDR-501 GT; HYDR237S13 TP; IPRA0.2S6 NEB; LIDO30AD10 TD; LORA-259 GT; LORA10TA7 GT; MAG355OR18 GT; MAGN400O6 GT; MELA3TAB41 GT; NA P133E RC; OLOP5DRO15 EACHEYE; OMEP20CA15 GT; ONDA-104 GT; RILU50TA4 GT
[2022-05-06 20:12] VITALS: TEMP 98.5
[2022-05-06] MEDS ORDERED: ONDANSETRON ODT 4 MG TAB.RAPDIS GT PRN (22:00)
[2022-05-06] MEDS ORDERED: BISACODYL 10 MG SUPP.RECT RC PRN (22:00)
[2022-05-06] MEDS ORDERED: ACETAMINOPHEN 650 MG/20 ML UDC- SA PATIENTS-PAIN ONLY GT PRN ×2 (22:00)
[2022-05-06] MEDS ORDERED: MISCELLANEOUS MED XX PRN (22:15)
[2022-05-06] MEDS ORDERED: FLEET ENEMA 133 ML BOTTLE RC PRN (22:15)
[2022-05-06] MEDS ORDERED: LORAZEPAM 1 MG TABLET GT PRN (22:15)
[2022-05-06] MEDS ORDERED: MAG HYDROX/AL HYDROX/SIMETH 30 ML LIQUID UDC GT PRN (22:15)
[2022-05-06] MEDS ORDERED: MAGNESIUM HYDROXIDE 30 ML LIQUID UDC GT PRN (22:15)
[2022-05-07] VITALS: TEMP 98.5
[2022-05-07] MEDS: HYDROCODONE/APAP 10-325 MG TABLET GT PRN ×3 (00:03→17:16)
[2022-05-07 04:00] VITALS: TEMP 98.1
[2022-05-07] MEDS: IPRATROPIUM BROMIDE 12.9 GM INHALER INH SCH ×2 (06:00)
[2022-05-07] MEDS ORDERED: MISCELLANEOUS MED GT SCH ×2 (06:00→09:00)
[2022-05-07 07:55] VITALS: TEMP 97.6
[2022-05-07] MEDS: FLUOXETINE HCL 20 MG CAPSULE GT SCH (09:00)
[2022-05-07] MEDS ORDERED: POLYVINYL ALCOHOL OPHT DROPS 15 ML BOTTLE EACHEYE SCH (09:00)
[2022-05-07] MEDS ORDERED: BACLOFEN 20 MG TABLET GT SCH (09:00)
[2022-05-07] MEDS: LIDOCAINE 5% PATCH TD SCH (09:00)
[2022-05-07] MEDS ORDERED: HYDROGEN PEROXIDE 3% 118 ML BOTTLE TOP ONE (09:00)
[2022-05-07] MEDS ORDERED: GABAPENTIN 400 MG CAPSULE GT SCH ×2 (09:00→11:49)
[2022-05-07] MEDS ORDERED: FLUTICASONE PROP NASAL SPRAY 16 GM BOTTLE NS SCH (09:00)
[2022-05-07] MEDS: LORATADINE 10 MG TABLET GT SCH (09:00)
[2022-05-07] MEDS: ENOXAPARIN SODIUM 40 MG/0.4 ML DISP.SYRIN SQ SCH (09:00)
[2022-05-07] MEDS ORDERED: CHLORHEXIDINE GLUCONATE 15 ML MOUTHWASH MM SCH (09:00)
[2022-05-07] MEDS: OLOPATADINE 0.1% OPHT DROP 5 ML BOTTLE EACHEYE SCH ×2 (09:00→17:01)
[2022-05-07] MEDS ORDERED: IPRATROPIUM BROMIDE 0.5 MG/2.5 ML NEBU NEB SCH (10:55)
[2022-05-07] MEDS ORDERED: JEVITY 1.2 1000 ML LIQUID GT PRN (11:30)
[2022-05-07] MEDS ORDERED: HYDROGEN PEROXIDE 3% 118 ML BOTTLE TP PRN (11:30)
[2022-05-07] MEDS ORDERED: FLEET ENEMA 133 ML BOTTLE RC PRN (12:15)
[2022-05-07] MEDS: BACLOFEN 20 MG TABLET GT SCH ×2 (13:00→17:01)
[2022-05-07] MEDS: POLYVINYL ALCOHOL OPHT DROPS 15 ML BOTTLE EACHEYE SCH ×3 (13:00→21:41)
[2022-05-07] MEDS: IPRATROPIUM BROMIDE 0.5 MG/2.5 ML NEBU NEB SCH ×2 (13:30→22:05)
[2022-05-07] MEDS: GABAPENTIN 300 MG/6 ML GT SCH ×2 (14:00→21:42)
[2022-05-07] MEDS: CHLORHEXIDINE GLUCONATE 15 ML MOUTHWASH MM SCH (17:01)
[2022-05-07] MEDS: RILUZOLE 50 MG TAB GT SCH (17:15)
[2022-05-07 20:42] VITALS: TEMP 98.2
[2022-05-07] MEDS: NORMAL SALINE FLUSH 10 ML DISP.SYRIN IV SCH (21:00)
[2022-05-07] MEDS ORDERED: GABAPENTIN 300 MG CAPSULE GT SCH (21:00)
[2022-05-07] MEDS ORDERED: ATORVASTATIN 20 MG TABLET GT SCH (21:00)
[2022-05-07] MEDS ORDERED: hydrOXYzine HCL 25 MG TABLET GT SCH (21:00)
[2022-05-07] MEDS ORDERED: MELATONIN 3 MG TABLET GT SCH (21:00)
[2022-05-07] MEDS ORDERED: DOCUSATE SODIUM 100 MG/10 ML LIQUID UDC GT SCH (21:00)
[2022-05-07] MEDS: DOCUSATE SODIUM 100 MG/10 ML LIQUID UDC GT SCH (21:42)
[2022-05-07] MEDS: hydrOXYzine HCL 25 MG TABLET GT SCH (21:42)
[2022-05-07] MEDS: REMEDY ESSENTIAL ZINC PASTE 113 GM TP SCH (21:42)
[2022-05-07] MEDS: MELATONIN 3 MG TABLET GT SCH (21:42)
[2022-05-07] MEDS: ATORVASTATIN 20 MG TABLET GT SCH (21:42)
[2022-05-07] MEDS: LORAZEPAM 1 MG TABLET GT PRN (21:57)
[2022-05-07] MEDS ORDERED: NEOMY/BACITRAC/POLYMI OINT 28.35 GM TUBE TOP SCH (22:00)
[2022-05-07] MEDS: HYDROGEN PEROXIDE 3% 118 ML BOTTLE TP SCH (22:06)
[2022-05-08 00:10] VITALS: TEMP 98
[2022-05-08] MEDS: IPRATROPIUM BROMIDE 0.5 MG/2.5 ML NEBU NEB SCH ×4 (00:48→20:02)
[2022-05-08] MEDS: ACETAMINOPHEN 650 MG/20 ML UDC- SA PATIENTS-PAIN ONLY GT PRN (04:03)
[2022-05-08 06:00] VITALS: TEMP 98.4
[2022-05-08] MEDS: OMEPRAZOLE 20 MG CAPSULE.DR GT SCH (06:01)
[2022-05-08] MEDS: RILUZOLE 50 MG TAB GT SCH ×2 (06:01→17:16)
[2022-05-08] MEDS: GABAPENTIN 300 MG/6 ML GT SCH ×3 (06:01→21:27)
[2022-05-08 08:00] VITALS: TEMP 97.6
[2022-05-08] MEDS: LORAZEPAM 1 MG TABLET GT PRN (08:45)
[2022-05-08] MEDS: HYDROGEN PEROXIDE 3% 118 ML BOTTLE TP SCH ×2 (08:49→22:12)
[2022-05-08] MEDS: LORATADINE 10 MG TABLET GT SCH (08:59)
[2022-05-08] MEDS: BACLOFEN 20 MG TABLET GT SCH ×3 (08:59→17:11)
[2022-05-08] MEDS: POLYVINYL ALCOHOL OPHT DROPS 15 ML BOTTLE EACHEYE SCH ×4 (08:59→21:27)
[2022-05-08] MEDS: FLUTICASONE PROP NASAL SPRAY 16 GM BOTTLE NS SCH (09:00)
[2022-05-08] MEDS: NEOMY/BACITRA/POLYMYXIN B OINT UD PACKET TP SCH ×2 (09:00→21:27)
[2022-05-08] MEDS: LIDOCAINE 5% PATCH TD SCH (09:00)
[2022-05-08] MEDS: FLUOXETINE HCL 20 MG CAPSULE GT SCH (09:00)
[2022-05-08] MEDS: OLOPATADINE 0.1% OPHT DROP 5 ML BOTTLE EACHEYE SCH ×2 (09:00→17:17)
[2022-05-08] MEDS: CHLORHEXIDINE GLUCONATE 15 ML MOUTHWASH MM SCH ×2 (09:00→17:15)
[2022-05-08] MEDS: NORMAL SALINE FLUSH 10 ML DISP.SYRIN IV SCH ×2 (09:00→21:49)
[2022-05-08] MEDS: ENOXAPARIN SODIUM 40 MG/0.4 ML DISP.SYRIN SQ SCH (09:01)
[2022-05-08] MEDS: REMEDY ESSENTIAL ZINC PASTE 113 GM TP SCH ×2 (09:01→21:27)
[2022-05-08] MEDS: JEVITY 1.2 1000 ML LIQUID GT PRN (17:40)
[2022-05-08 20:00] VITALS: TEMP 98.8
[2022-05-08] MEDS: HYDROCODONE/APAP 10-325 MG TABLET GT PRN (21:15)
[2022-05-08] MEDS: hydrOXYzine HCL 25 MG TABLET GT SCH (21:27)
[2022-05-08] MEDS: MELATONIN 3 MG TABLET GT SCH (21:27)
[2022-05-08] MEDS: DOCUSATE SODIUM 100 MG/10 ML LIQUID UDC GT SCH (21:27)
[2022-05-08] MEDS: ATORVASTATIN 20 MG TABLET GT SCH (21:27)
[2022-05-09] VITALS: TEMP 97.8
[2022-05-09] MEDS: IPRATROPIUM BROMIDE 0.5 MG/2.5 ML NEBU NEB SCH ×4 (00:43→20:10)
[2022-05-09] MEDS: ACETAMINOPHEN 650 MG/20 ML UDC- SA PATIENTS-PAIN ONLY GT PRN (02:18)
[2022-05-09] MEDS: RILUZOLE 50 MG TAB GT SCH ×2 (05:13→17:51)
[2022-05-09] MEDS: OMEPRAZOLE 20 MG CAPSULE.DR GT SCH (05:13)
[2022-05-09] MEDS: GABAPENTIN 300 MG/6 ML GT SCH ×3 (05:13→21:00)
[2022-05-09] MEDS: HYDROCODONE/APAP 10-325 MG TABLET GT PRN ×3 (05:15→16:30)
[2022-05-09 08:04] VITALS: TEMP 98
[2022-05-09] MEDS: NEOMY/BACITRA/POLYMYXIN B OINT UD PACKET TP SCH ×2 (09:00→21:00)
[2022-05-09] MEDS: LIDOCAINE 5% PATCH TD SCH (09:00)
[2022-05-09] MEDS: NORMAL SALINE FLUSH 10 ML DISP.SYRIN IV SCH ×2 (09:00→21:00)
[2022-05-09] MEDS: HYDROGEN PEROXIDE 3% 118 ML BOTTLE TP SCH ×2 (09:00→21:00)
[2022-05-09] MEDS: OLOPATADINE 0.1% OPHT DROP 5 ML BOTTLE EACHEYE SCH ×2 (09:03→16:19)
[2022-05-09] MEDS: POLYVINYL ALCOHOL OPHT DROPS 15 ML BOTTLE EACHEYE SCH ×4 (09:03→21:00)
[2022-05-09] MEDS: FLUOXETINE HCL 20 MG CAPSULE GT SCH (09:04)
[2022-05-09] MEDS: LORATADINE 10 MG TABLET GT SCH (09:04)
[2022-05-09] MEDS: BACLOFEN 20 MG TABLET GT SCH ×3 (09:04→16:14)
[2022-05-09] MEDS: CHLORHEXIDINE GLUCONATE 15 ML MOUTHWASH MM SCH ×2 (09:05→16:15)
[2022-05-09] MEDS: FLUTICASONE PROP NASAL SPRAY 16 GM BOTTLE NS SCH (09:06)
[2022-05-09] MEDS: REMEDY ESSENTIAL ZINC PASTE 113 GM TP SCH ×2 (09:07→21:00)
[2022-05-09] MEDS: ENOXAPARIN SODIUM 40 MG/0.4 ML DISP.SYRIN SQ SCH (09:07)
[2022-05-09] MEDS: JEVITY 1.2 1000 ML LIQUID GT PRN (16:30)
[2022-05-09 20:41] VITALS: TEMP 98.5
[2022-05-09] MEDS: hydrOXYzine HCL 25 MG TABLET GT SCH (21:00)
[2022-05-09] MEDS: ATORVASTATIN 20 MG TABLET GT SCH (21:00)
[2022-05-09] MEDS: MELATONIN 3 MG TABLET GT SCH (21:00)
[2022-05-09] MEDS: DOCUSATE SODIUM 100 MG/10 ML LIQUID UDC GT SCH (21:00)
[2022-05-09] MEDS: LORAZEPAM 1 MG TABLET GT PRN (22:30)
[2022-05-09] MEDS: ONDANSETRON HCL 4 MG TABLET GT PRN (22:45)
[2022-05-10] MEDS: IPRATROPIUM BROMIDE 0.5 MG/2.5 ML NEBU NEB SCH ×4 (01:25→19:09)
[2022-05-10] MEDS: GABAPENTIN 300 MG/6 ML GT SCH ×3 (05:29→21:23)
[2022-05-10] MEDS: RILUZOLE 50 MG TAB GT SCH ×2 (05:29→17:34)
[2022-05-10] MEDS: OMEPRAZOLE 20 MG CAPSULE.DR GT SCH (05:29)
[2022-05-10 06:46] LABS: BASOPHILS # (AUTO) 0.1 K/UL (0.0-0.2); BASOPHILS % (AUTO) 0.7 % (0.0-2.0); EOSINOPHILS # (AUTO) 0.4 K/uL (0.0-0.7); EOSINOPHILS % (AUTO) 4.5 % (0.0-7.0); HEMATOCRIT 37.4 % (31.2-41.9); HEMOGLOBIN 12.4 g/dL (10.9-14.3); LYMPHOCYTES # (AUTO) 1.8 K/uL (0.8-4.8); LYMPHOCYTES % (AUTO) 17.9 % (20.5-51.5); MEAN CORPUSCULAR HEMOGLOBIN 31.5 uug (24.7-32.8); MEAN CORPUSCULAR HGB CONC 33 g/dL (32.3-35.6); MEAN CORPUSCULAR VOLUME 94.8 fL (75.5-95.3); MONOCYTES # (AUTO) 0.6 K/uL (0.1-1.30); MONOCYTES % (AUTO) 5.7 % (0.0-11.0); NEUTROPHILS % (AUTO) 71.2 % (38.5-71.5); PLATELET COUNT (AUTO) 453 K/uL (179-408); RED BLOOD CELL COUNT(AUTO) 3.94 MIL/uL (3.63-4.92); WHITE BLOOD COUNT (AUTO) 9.9 K/uL (3.8-11.8)
[2022-05-10 06:58] LABS: DIFFERENTIAL COMMENT 1
[2022-05-10 07:06] LABS: ALANINE AMINOTRANSFERASE 40 U/L (14-59); ALKALINE PHOSPHATASE 165 U/L (50-136); ASPARTATE AMINOTRANSFERASE 14 U/L (15-37); BILIRUBIN,TOTAL 0.4 mg/dL (0.2-1.0); CALCIUM 9.3 mg/dL (8.5-10.1); CARBON DIOXIDE 36 mmol/L (21-32); CHLORIDE 97 mmol/L (98-107); CREATININE 0.3 mg/dL (0.6-1.3); GLUCOSE 99 mg/dL (74-106); POTASSIUM 4.1 mmol/L (3.5-5.1); SODIUM SERUM 138 mmol/L (136-145); TOTAL PROTEIN, SERUM 7.3 g/dL (6.4-8.2); UREA NITROGEN, BLOOD 11 mg/dL (7-18)
[2022-05-10 08:00] VITALS: TEMP 98.2
[2022-05-10] MEDS: OLOPATADINE 0.1% OPHT DROP 5 ML BOTTLE EACHEYE SCH ×2 (08:26→17:18)
[2022-05-10] MEDS: POLYVINYL ALCOHOL OPHT DROPS 15 ML BOTTLE EACHEYE SCH ×4 (08:26→21:23)
[2022-05-10] MEDS: LORATADINE 10 MG TABLET GT SCH (08:26)
[2022-05-10] MEDS: CHLORHEXIDINE GLUCONATE 15 ML MOUTHWASH MM SCH ×2 (08:28→17:19)
[2022-05-10] MEDS: FLUOXETINE HCL 20 MG CAPSULE GT SCH (08:28)
[2022-05-10] MEDS: BACLOFEN 20 MG TABLET GT SCH ×3 (08:28→17:18)
[2022-05-10] MEDS: FLUTICASONE PROP NASAL SPRAY 16 GM BOTTLE NS SCH (08:28)
[2022-05-10] MEDS: NEOMY/BACITRA/POLYMYXIN B OINT UD PACKET TP SCH ×2 (08:29→21:23)
[2022-05-10] MEDS: REMEDY ESSENTIAL ZINC PASTE 113 GM TP SCH ×2 (08:29→21:23)
[2022-05-10] MEDS: LIDOCAINE 5% PATCH TD SCH (08:29)
[2022-05-10] MEDS: ENOXAPARIN SODIUM 40 MG/0.4 ML DISP.SYRIN SQ SCH (08:29)
[2022-05-10] MEDS: NORMAL SALINE FLUSH 10 ML DISP.SYRIN IV SCH ×2 (09:00→21:00)
[2022-05-10] MEDS: HYDROGEN PEROXIDE 3% 118 ML BOTTLE TP SCH ×2 (09:31→19:09)
[2022-05-10] MEDS: HYDROCODONE/APAP 10-325 MG TABLET GT PRN ×2 (10:35→17:16)
[2022-05-10] MEDS: JEVITY 1.2 1000 ML LIQUID GT PRN (13:59)
[2022-05-10 19:57] VITALS: TEMP 97.9
[2022-05-10] MEDS: LORAZEPAM 1 MG TABLET GT PRN (21:00)
[2022-05-10] MEDS: hydrOXYzine HCL 25 MG TABLET GT SCH (21:23)
[2022-05-10] MEDS: DOCUSATE SODIUM 100 MG/10 ML LIQUID UDC GT SCH (21:23)
[2022-05-10] MEDS: MELATONIN 3 MG TABLET GT SCH (21:23)
[2022-05-10] MEDS: ATORVASTATIN 20 MG TABLET GT SCH (21:23)
[2022-05-10] MEDS: ONDANSETRON HCL 4 MG TABLET GT PRN (21:34)
[2022-05-11] MEDS: IPRATROPIUM BROMIDE 0.5 MG/2.5 ML NEBU NEB SCH ×4 (00:42→19:02)
[2022-05-11] MEDS: RILUZOLE 50 MG TAB GT SCH ×2 (05:48→17:29)
[2022-05-11] MEDS: OMEPRAZOLE 20 MG CAPSULE.DR GT SCH (05:48)
[2022-05-11] MEDS: GABAPENTIN 300 MG/6 ML GT SCH ×3 (05:48→21:00)
[2022-05-11 08:00] VITALS: TEMP 98
[2022-05-11] MEDS: HYDROGEN PEROXIDE 3% 118 ML BOTTLE TP SCH ×2 (09:00→19:02)
[2022-05-11] MEDS: NORMAL SALINE FLUSH 10 ML DISP.SYRIN IV SCH ×2 (09:00→21:00)
[2022-05-11] MEDS: LORATADINE 10 MG TABLET GT SCH (09:39)
[2022-05-11] MEDS: POLYVINYL ALCOHOL OPHT DROPS 15 ML BOTTLE EACHEYE SCH ×4 (09:39→21:00)
[2022-05-11] MEDS: OLOPATADINE 0.1% OPHT DROP 5 ML BOTTLE EACHEYE SCH ×2 (09:39→17:29)
[2022-05-11] MEDS: CHLORHEXIDINE GLUCONATE 15 ML MOUTHWASH MM SCH ×2 (09:40→17:29)
[2022-05-11] MEDS: FLUTICASONE PROP NASAL SPRAY 16 GM BOTTLE NS SCH (09:40)
[2022-05-11] MEDS: FLUOXETINE HCL 20 MG CAPSULE GT SCH (09:40)
[2022-05-11] MEDS: BACLOFEN 20 MG TABLET GT SCH ×3 (09:40→17:29)
[2022-05-11] MEDS: LIDOCAINE 5% PATCH TD SCH (09:41)
[2022-05-11] MEDS: ENOXAPARIN SODIUM 40 MG/0.4 ML DISP.SYRIN SQ SCH (09:41)
[2022-05-11] MEDS: NEOMY/BACITRA/POLYMYXIN B OINT UD PACKET TP SCH ×2 (09:42→21:00)
[2022-05-11] MEDS: REMEDY ESSENTIAL ZINC PASTE 113 GM TP SCH ×2 (09:42→21:00)
[2022-05-11] MEDS: HYDROCODONE/APAP 10-325 MG TABLET GT PRN ×2 (10:50→17:30)
[2022-05-11] MEDS: JEVITY 1.2 1000 ML LIQUID GT PRN (12:20)
[2022-05-11 20:00] VITALS: TEMP 98.1
[2022-05-11] MEDS: MELATONIN 3 MG TABLET GT SCH (21:00)
[2022-05-11] MEDS: ATORVASTATIN 20 MG TABLET GT SCH (21:00)
[2022-05-11] MEDS: hydrOXYzine HCL 25 MG TABLET GT SCH (21:00)
[2022-05-11] MEDS: DOCUSATE SODIUM 100 MG/10 ML LIQUID UDC GT SCH (21:00)
[2022-05-11] MEDS: LORAZEPAM 1 MG TABLET GT PRN (21:45)
[2022-05-11] MEDS: ONDANSETRON HCL 4 MG TABLET GT PRN (22:03)
[2022-05-12] MEDS: IPRATROPIUM BROMIDE 0.5 MG/2.5 ML NEBU NEB SCH ×4 (01:12→19:15)
[2022-05-12] MEDS: GABAPENTIN 300 MG/6 ML GT SCH ×3 (05:09→21:24)
[2022-05-12] MEDS: OMEPRAZOLE 20 MG CAPSULE.DR GT SCH (05:09)
[2022-05-12] MEDS: RILUZOLE 50 MG TAB GT SCH ×2 (05:09→18:42)
[2022-05-12 08:00] VITALS: TEMP 98.1
[2022-05-12] MEDS: POLYVINYL ALCOHOL OPHT DROPS 15 ML BOTTLE EACHEYE SCH ×4 (08:49→21:24)
[2022-05-12] MEDS: OLOPATADINE 0.1% OPHT DROP 5 ML BOTTLE EACHEYE SCH ×2 (08:51→17:03)
[2022-05-12] MEDS: BACLOFEN 20 MG TABLET GT SCH ×3 (08:51→17:03)
[2022-05-12] MEDS: FLUOXETINE HCL 20 MG CAPSULE GT SCH (08:51)
[2022-05-12] MEDS: LORATADINE 10 MG TABLET GT SCH (08:51)
[2022-05-12] MEDS: FLUTICASONE PROP NASAL SPRAY 16 GM BOTTLE NS SCH (08:51)
[2022-05-12] MEDS: CHLORHEXIDINE GLUCONATE 15 ML MOUTHWASH MM SCH ×2 (08:51→17:03)
[2022-05-12] MEDS: ENOXAPARIN SODIUM 40 MG/0.4 ML DISP.SYRIN SQ SCH (08:52)
[2022-05-12] MEDS: HYDROCODONE/APAP 10-325 MG TABLET GT PRN ×2 (08:53→17:05)
[2022-05-12] MEDS: NEOMY/BACITRA/POLYMYXIN B OINT UD PACKET TP SCH ×2 (08:54→21:26)
[2022-05-12] MEDS: LIDOCAINE 5% PATCH TD SCH (08:54)
[2022-05-12] MEDS: REMEDY ESSENTIAL ZINC PASTE 113 GM TP SCH ×2 (08:54→21:25)
[2022-05-12] MEDS: NORMAL SALINE FLUSH 10 ML DISP.SYRIN IV SCH ×2 (09:00→21:00)
[2022-05-12] MEDS: HYDROGEN PEROXIDE 3% 118 ML BOTTLE TP SCH ×2 (09:19→19:15)
[2022-05-12 20:00] VITALS: TEMP 97.8
[2022-05-12] MEDS: hydrOXYzine HCL 25 MG TABLET GT SCH (21:24)
[2022-05-12] MEDS: ATORVASTATIN 20 MG TABLET GT SCH (21:24)
[2022-05-12] MEDS: DOCUSATE SODIUM 100 MG/10 ML LIQUID UDC GT SCH (21:24)
[2022-05-12] MEDS: MELATONIN 3 MG TABLET GT SCH (21:25)
[2022-05-12] MEDS: LORAZEPAM 1 MG TABLET GT PRN (21:27)
[2022-05-12] MEDS: ONDANSETRON HCL 4 MG TABLET GT PRN (21:53)
[2022-05-13] MEDS: IPRATROPIUM BROMIDE 0.5 MG/2.5 ML NEBU NEB SCH ×4 (00:52→19:16)
[2022-05-13] MEDS: GABAPENTIN 300 MG/6 ML GT SCH ×3 (06:07→21:00)
[2022-05-13] MEDS: OMEPRAZOLE 20 MG CAPSULE.DR GT SCH (06:07)
[2022-05-13] MEDS: RILUZOLE 50 MG TAB GT SCH ×2 (06:07→17:17)
[2022-05-13 07:53] VITALS: TEMP 97.5
[2022-05-13] MEDS: NORMAL SALINE FLUSH 10 ML DISP.SYRIN IV SCH ×2 (09:00→21:00)
[2022-05-13] MEDS: HYDROGEN PEROXIDE 3% 118 ML BOTTLE TP SCH ×2 (09:00→19:16)
[2022-05-13] MEDS: ENOXAPARIN SODIUM 40 MG/0.4 ML DISP.SYRIN SQ SCH (09:12)
[2022-05-13] MEDS: CHLORHEXIDINE GLUCONATE 15 ML MOUTHWASH MM SCH ×2 (09:19→17:17)
[2022-05-13] MEDS: HYDROCODONE/APAP 10-325 MG TABLET GT PRN ×2 (09:19→17:18)
[2022-05-13] MEDS: LIDOCAINE 5% PATCH TD SCH (09:19)
[2022-05-13] MEDS: FLUTICASONE PROP NASAL SPRAY 16 GM BOTTLE NS SCH (09:19)
[2022-05-13] MEDS: FLUOXETINE HCL 20 MG CAPSULE GT SCH (09:19)
[2022-05-13] MEDS: BACLOFEN 20 MG TABLET GT SCH ×3 (09:19→17:17)
[2022-05-13] MEDS: LORATADINE 10 MG TABLET GT SCH (09:19)
[2022-05-13] MEDS: REMEDY ESSENTIAL ZINC PASTE 113 GM TP SCH ×2 (09:19→21:00)
[2022-05-13] MEDS: NEOMY/BACITRA/POLYMYXIN B OINT UD PACKET TP SCH ×2 (09:19→21:00)
[2022-05-13] MEDS: POLYVINYL ALCOHOL OPHT DROPS 15 ML BOTTLE EACHEYE SCH ×4 (09:19→21:00)
[2022-05-13] MEDS: OLOPATADINE 0.1% OPHT DROP 5 ML BOTTLE EACHEYE SCH ×2 (09:19→17:17)
[2022-05-13 20:00] VITALS: TEMP 98.6
[2022-05-13] MEDS: DOCUSATE SODIUM 100 MG/10 ML LIQUID UDC GT SCH (21:00)
[2022-05-13] MEDS: hydrOXYzine HCL 25 MG TABLET GT SCH (21:00)
[2022-05-13] MEDS: MELATONIN 3 MG TABLET GT SCH (21:00)
[2022-05-13] MEDS: ATORVASTATIN 20 MG TABLET GT SCH (21:00)
[2022-05-14] MEDS: IPRATROPIUM BROMIDE 0.5 MG/2.5 ML NEBU NEB SCH ×4 (00:48→19:13)
[2022-05-14] MEDS: RILUZOLE 50 MG TAB GT SCH ×2 (06:00→17:06)
[2022-05-14] MEDS: GABAPENTIN 300 MG/6 ML GT SCH ×3 (06:00→21:15)
[2022-05-14] MEDS: OMEPRAZOLE 20 MG CAPSULE.DR GT SCH (06:00)
[2022-05-14] MEDS: HYDROGEN PEROXIDE 3% 118 ML BOTTLE TP SCH ×2 (07:45→21:13)
[2022-05-14 07:50] VITALS: TEMP 99.6
[2022-05-14] MEDS: CHLORHEXIDINE GLUCONATE 15 ML MOUTHWASH MM SCH ×2 (08:50→17:06)
[2022-05-14] MEDS: POLYVINYL ALCOHOL OPHT DROPS 15 ML BOTTLE EACHEYE SCH ×4 (08:50→21:14)
[2022-05-14] MEDS: FLUTICASONE PROP NASAL SPRAY 16 GM BOTTLE NS SCH (08:50)
[2022-05-14] MEDS: LORATADINE 10 MG TABLET GT SCH (08:50)
[2022-05-14] MEDS: BACLOFEN 20 MG TABLET GT SCH ×3 (08:50→17:06)
[2022-05-14] MEDS: OLOPATADINE 0.1% OPHT DROP 5 ML BOTTLE EACHEYE SCH ×2 (08:50→17:06)
[2022-05-14] MEDS: FLUOXETINE HCL 20 MG CAPSULE GT SCH (08:50)
[2022-05-14] MEDS: NEOMY/BACITRA/POLYMYXIN B OINT UD PACKET TP SCH ×2 (08:51→21:16)
[2022-05-14] MEDS: REMEDY ESSENTIAL ZINC PASTE 113 GM TP SCH ×2 (08:51→21:15)
[2022-05-14] MEDS: LIDOCAINE 5% PATCH TD SCH (08:51)
[2022-05-14] MEDS: ENOXAPARIN SODIUM 40 MG/0.4 ML DISP.SYRIN SQ SCH (08:51)
[2022-05-14] MEDS: HYDROCODONE/APAP 10-325 MG TABLET GT PRN ×2 (08:52→17:07)
[2022-05-14] MEDS: NORMAL SALINE FLUSH 10 ML DISP.SYRIN IV SCH (09:00)
[2022-05-14] MEDS: BISACODYL 10 MG SUPP.RECT RC PRN (14:57)
[2022-05-14 20:00] VITALS: TEMP 98.8
[2022-05-14] MEDS: hydrOXYzine HCL 25 MG TABLET GT SCH (21:14)
[2022-05-14] MEDS: ATORVASTATIN 20 MG TABLET GT SCH (21:15)
[2022-05-14] MEDS: MELATONIN 3 MG TABLET GT SCH (21:15)
[2022-05-14] MEDS: DOCUSATE SODIUM 100 MG/10 ML LIQUID UDC GT SCH (21:15)
[2022-05-14] MEDS: LORAZEPAM 1 MG TABLET GT PRN (21:16)
[2022-05-14] MEDS: ONDANSETRON HCL 4 MG TABLET GT PRN (21:17)
[2022-05-15] MEDS: IPRATROPIUM BROMIDE 0.5 MG/2.5 ML NEBU NEB SCH ×4 (01:57→19:20)
[2022-05-15] MEDS: GABAPENTIN 300 MG/6 ML GT SCH ×3 (05:01→20:56)
[2022-05-15] MEDS: RILUZOLE 50 MG TAB GT SCH ×2 (05:01→17:59)
[2022-05-15] MEDS: OMEPRAZOLE 20 MG CAPSULE.DR GT SCH (05:01)
[2022-05-15 07:43] VITALS: TEMP 98.3
[2022-05-15] MEDS: HYDROGEN PEROXIDE 3% 118 ML BOTTLE TP SCH ×2 (08:57→19:20)
[2022-05-15] MEDS: POLYVINYL ALCOHOL OPHT DROPS 15 ML BOTTLE EACHEYE SCH ×4 (09:14→20:55)
[2022-05-15] MEDS: OLOPATADINE 0.1% OPHT DROP 5 ML BOTTLE EACHEYE SCH ×2 (09:14→17:58)
[2022-05-15] MEDS: LORATADINE 10 MG TABLET GT SCH (09:16)
[2022-05-15] MEDS: FLUOXETINE HCL 20 MG CAPSULE GT SCH (09:17)
[2022-05-15] MEDS: CHLORHEXIDINE GLUCONATE 15 ML MOUTHWASH MM SCH ×2 (09:17→17:59)
[2022-05-15] MEDS: BACLOFEN 20 MG TABLET GT SCH ×3 (09:17→17:59)
[2022-05-15] MEDS: ENOXAPARIN SODIUM 40 MG/0.4 ML DISP.SYRIN SQ SCH (09:18)
[2022-05-15] MEDS: FLUTICASONE PROP NASAL SPRAY 16 GM BOTTLE NS SCH (09:18)
[2022-05-15] MEDS: REMEDY ESSENTIAL ZINC PASTE 113 GM TP SCH ×2 (09:19→20:56)
[2022-05-15] MEDS: NEOMY/BACITRA/POLYMYXIN B OINT UD PACKET TP SCH ×2 (09:19→20:56)
[2022-05-15] MEDS: LIDOCAINE 5% PATCH TD SCH (09:19)
[2022-05-15] MEDS: HYDROCODONE/APAP 10-325 MG TABLET GT PRN ×2 (09:20→18:00)
[2022-05-15] MEDS: JEVITY 1.2 1000 ML LIQUID GT PRN (18:02)
[2022-05-15] MEDS: hydrOXYzine HCL 25 MG TABLET GT SCH (20:55)
[2022-05-15] MEDS: MELATONIN 3 MG TABLET GT SCH (20:56)
[2022-05-15] MEDS: DOCUSATE SODIUM 100 MG/10 ML LIQUID UDC GT SCH (20:56)
[2022-05-15] MEDS: ATORVASTATIN 20 MG TABLET GT SCH (20:56)
[2022-05-15 21:59] VITALS: TEMP 98.8
[2022-05-15] MEDS: LORAZEPAM 1 MG TABLET GT PRN (22:00)
[2022-05-16] MEDS: IPRATROPIUM BROMIDE 0.5 MG/2.5 ML NEBU NEB SCH ×5 (01:00→19:25)
[2022-05-16] MEDS: RILUZOLE 50 MG TAB GT SCH ×2 (05:20→17:15)
[2022-05-16] MEDS: GABAPENTIN 300 MG/6 ML GT SCH ×3 (05:20→20:37)
[2022-05-16] MEDS: OMEPRAZOLE 20 MG CAPSULE.DR GT SCH (05:20)
[2022-05-16 08:00] VITALS: TEMP 98.4
[2022-05-16 08:05] VITALS: TEMP 98.4
[2022-05-16] MEDS: POLYVINYL ALCOHOL OPHT DROPS 15 ML BOTTLE EACHEYE SCH ×4 (08:48→20:36)
[2022-05-16] MEDS: OLOPATADINE 0.1% OPHT DROP 5 ML BOTTLE EACHEYE SCH ×2 (08:49→17:15)
[2022-05-16] MEDS: LORATADINE 10 MG TABLET GT SCH (08:49)
[2022-05-16] MEDS: FLUOXETINE HCL 20 MG CAPSULE GT SCH (08:51)
[2022-05-16] MEDS: FLUTICASONE PROP NASAL SPRAY 16 GM BOTTLE NS SCH (08:51)
[2022-05-16] MEDS: CHLORHEXIDINE GLUCONATE 15 ML MOUTHWASH MM SCH ×2 (08:51→17:15)
[2022-05-16] MEDS: BACLOFEN 20 MG TABLET GT SCH ×3 (08:51→17:15)
[2022-05-16] MEDS: ENOXAPARIN SODIUM 40 MG/0.4 ML DISP.SYRIN SQ SCH (08:52)
[2022-05-16] MEDS: NEOMY/BACITRA/POLYMYXIN B OINT UD PACKET TP SCH ×2 (08:52→20:38)
[2022-05-16] MEDS: LIDOCAINE 5% PATCH TD SCH (08:52)
[2022-05-16] MEDS: REMEDY ESSENTIAL ZINC PASTE 113 GM TP SCH ×2 (08:52→20:38)
[2022-05-16] MEDS: HYDROCODONE/APAP 10-325 MG TABLET GT PRN ×2 (08:54→17:16)
[2022-05-16] MEDS: HYDROGEN PEROXIDE 3% 118 ML BOTTLE TP SCH ×2 (09:27→19:25)
[2022-05-16 20:10] VITALS: TEMP 98.2
[2022-05-16] MEDS: hydrOXYzine HCL 25 MG TABLET GT SCH (20:36)
[2022-05-16] MEDS: DOCUSATE SODIUM 100 MG/10 ML LIQUID UDC GT SCH (20:37)
[2022-05-16] MEDS: ATORVASTATIN 20 MG TABLET GT SCH (20:37)
[2022-05-16] MEDS: MELATONIN 3 MG TABLET GT SCH (20:38)
[2022-05-16] MEDS: LORAZEPAM 1 MG TABLET GT PRN (21:11)
[2022-05-17] MEDS: IPRATROPIUM BROMIDE 0.5 MG/2.5 ML NEBU NEB SCH ×4 (01:13→19:10)
[2022-05-17] MEDS: GABAPENTIN 300 MG/6 ML GT SCH ×3 (05:09→21:12)
[2022-05-17] MEDS: OMEPRAZOLE 20 MG CAPSULE.DR GT SCH (05:09)
[2022-05-17] MEDS: RILUZOLE 50 MG TAB GT SCH ×2 (05:09→17:15)
[2022-05-17 08:00] VITALS: TEMP 98.2
[2022-05-17] MEDS: HYDROGEN PEROXIDE 3% 118 ML BOTTLE TP SCH ×2 (08:58→19:10)
[2022-05-17] MEDS: OLOPATADINE 0.1% OPHT DROP 5 ML BOTTLE EACHEYE SCH ×2 (09:07→16:54)
[2022-05-17] MEDS: POLYVINYL ALCOHOL OPHT DROPS 15 ML BOTTLE EACHEYE SCH ×4 (09:07→21:11)
[2022-05-17] MEDS: FLUOXETINE HCL 20 MG CAPSULE GT SCH (09:08)
[2022-05-17] MEDS: BACLOFEN 20 MG TABLET GT SCH ×3 (09:08→16:54)
[2022-05-17] MEDS: LORATADINE 10 MG TABLET GT SCH (09:08)
[2022-05-17] MEDS: CHLORHEXIDINE GLUCONATE 15 ML MOUTHWASH MM SCH ×2 (09:12→16:54)
[2022-05-17] MEDS: LIDOCAINE 5% PATCH TD SCH (09:12)
[2022-05-17] MEDS: FLUTICASONE PROP NASAL SPRAY 16 GM BOTTLE NS SCH (09:12)
[2022-05-17] MEDS: NEOMY/BACITRAC/POLYMI OINT 28.35 GM TUBE TOP SCH (09:14)
[2022-05-17] MEDS: REMEDY ESSENTIAL ZINC PASTE 113 GM TP SCH ×2 (09:14→21:13)
[2022-05-17] MEDS: HYDROCODONE/APAP 10-325 MG TABLET GT PRN ×3 (09:16→18:47)
[2022-05-17] MEDS: ENOXAPARIN SODIUM 40 MG/0.4 ML DISP.SYRIN SQ SCH (09:18)
[2022-05-17] MEDS: JEVITY 1.2 1000 ML LIQUID GT PRN (11:40)
[2022-05-17] MEDS: MAGNESIUM HYDROXIDE 30 ML LIQUID UDC GT PRN (13:04)
[2022-05-17 20:31] VITALS: TEMP 98.2; TEMP 98.6
[2022-05-17] MEDS: hydrOXYzine HCL 25 MG TABLET GT SCH (21:11)
[2022-05-17] MEDS: DOCUSATE SODIUM 100 MG/10 ML LIQUID UDC GT SCH (21:12)
[2022-05-17] MEDS: ATORVASTATIN 20 MG TABLET GT SCH (21:13)
[2022-05-17] MEDS: MELATONIN 3 MG TABLET GT SCH (21:13)
[2022-05-17] MEDS: LORAZEPAM 1 MG TABLET GT PRN (21:18)
[2022-05-18] MEDS: IPRATROPIUM BROMIDE 0.5 MG/2.5 ML NEBU NEB SCH ×4 (01:14→19:11)
[2022-05-18] MEDS: OMEPRAZOLE 20 MG CAPSULE.DR GT SCH (05:39)
[2022-05-18] MEDS: RILUZOLE 50 MG TAB GT SCH ×2 (05:39→17:34)
[2022-05-18] MEDS: GABAPENTIN 300 MG/6 ML GT SCH ×3 (05:39→21:36)
[2022-05-18 08:00] VITALS: TEMP 98.1
[2022-05-18] MEDS: POLYVINYL ALCOHOL OPHT DROPS 15 ML BOTTLE EACHEYE SCH ×4 (09:17→21:36)
[2022-05-18] MEDS: OLOPATADINE 0.1% OPHT DROP 5 ML BOTTLE EACHEYE SCH ×2 (09:19→17:34)
[2022-05-18] MEDS: LORATADINE 10 MG TABLET GT SCH (09:19)
[2022-05-18] MEDS: DOCUSATE SODIUM 100 MG/10 ML LIQUID UDC GT SCH ×2 (09:20→21:36)
[2022-05-18] MEDS: FLUOXETINE HCL 20 MG CAPSULE GT SCH (09:21)
[2022-05-18] MEDS: CHLORHEXIDINE GLUCONATE 15 ML MOUTHWASH MM SCH ×2 (09:21→17:34)
[2022-05-18] MEDS: BACLOFEN 20 MG TABLET GT SCH ×3 (09:21→17:34)
[2022-05-18] MEDS: FLUTICASONE PROP NASAL SPRAY 16 GM BOTTLE NS SCH (09:22)
[2022-05-18] MEDS: ENOXAPARIN SODIUM 40 MG/0.4 ML DISP.SYRIN SQ SCH (09:24)
[2022-05-18] MEDS: LIDOCAINE 5% PATCH TD SCH (09:24)
[2022-05-18] MEDS: NEOMY/BACITRAC/POLYMI OINT 28.35 GM TUBE TOP SCH (09:24)
[2022-05-18] MEDS: REMEDY ESSENTIAL ZINC PASTE 113 GM TP SCH ×2 (09:25→21:36)
[2022-05-18] MEDS: HYDROGEN PEROXIDE 3% 118 ML BOTTLE TP SCH ×2 (09:39→19:11)
[2022-05-18] MEDS: HYDROCODONE/APAP 10-325 MG TABLET GT PRN ×2 (11:17→17:38)
[2022-05-18] MEDS: JEVITY 1.2 1000 ML LIQUID GT PRN (17:48)
[2022-05-18 20:00] VITALS: TEMP 98.4
[2022-05-18] MEDS: LORAZEPAM 1 MG TABLET GT PRN (21:00)
[2022-05-18] MEDS: hydrOXYzine HCL 25 MG TABLET GT SCH (21:36)
[2022-05-18] MEDS: MELATONIN 3 MG TABLET GT SCH (21:36)
[2022-05-18] MEDS: ATORVASTATIN 20 MG TABLET GT SCH (21:36)
[2022-05-19] MEDS: IPRATROPIUM BROMIDE 0.5 MG/2.5 ML NEBU NEB SCH ×4 (00:56→19:22)
[2022-05-19] MEDS: GABAPENTIN 300 MG/6 ML GT SCH ×3 (05:49→21:53)
[2022-05-19] MEDS: RILUZOLE 50 MG TAB GT SCH ×2 (05:49→17:42)
[2022-05-19] MEDS: OMEPRAZOLE 20 MG CAPSULE.DR GT SCH (05:49)
[2022-05-19 07:30] VITALS: TEMP 98.2
[2022-05-19] MEDS: CHLORHEXIDINE GLUCONATE 15 ML MOUTHWASH MM SCH ×2 (09:00→17:42)
[2022-05-19] MEDS: OLOPATADINE 0.1% OPHT DROP 5 ML BOTTLE EACHEYE SCH ×2 (09:00→17:42)
[2022-05-19] MEDS: ENOXAPARIN SODIUM 40 MG/0.4 ML DISP.SYRIN SQ SCH (09:00)
[2022-05-19] MEDS: BACLOFEN 20 MG TABLET GT SCH ×3 (09:00→17:42)
[2022-05-19] MEDS: LIDOCAINE 5% PATCH TD SCH (09:00)
[2022-05-19] MEDS: POLYVINYL ALCOHOL OPHT DROPS 15 ML BOTTLE EACHEYE SCH ×4 (09:00→21:53)
[2022-05-19] MEDS: FLUOXETINE HCL 20 MG CAPSULE GT SCH (09:00)
[2022-05-19] MEDS: REMEDY ESSENTIAL ZINC PASTE 113 GM TP SCH ×2 (09:00→21:53)
[2022-05-19] MEDS: LORATADINE 10 MG TABLET GT SCH (09:00)
[2022-05-19] MEDS: NEOMY/BACITRAC/POLYMI OINT 28.35 GM TUBE TOP SCH (09:00)
[2022-05-19] MEDS: FLUTICASONE PROP NASAL SPRAY 16 GM BOTTLE NS SCH (09:00)
[2022-05-19] MEDS: DOCUSATE SODIUM 100 MG/10 ML LIQUID UDC GT SCH ×2 (09:00→21:53)
[2022-05-19] MEDS: HYDROGEN PEROXIDE 3% 118 ML BOTTLE TP SCH ×2 (09:36→19:22)
[2022-05-19] MEDS: HYDROCODONE/APAP 10-325 MG TABLET GT PRN ×2 (10:40→17:42)
[2022-05-19] MEDS: JEVITY 1.2 1000 ML LIQUID GT PRN (17:42)
[2022-05-19] MEDS: hydrOXYzine HCL 25 MG TABLET GT SCH (21:53)
[2022-05-19] MEDS: ATORVASTATIN 20 MG TABLET GT SCH (21:53)
[2022-05-19] MEDS: MELATONIN 3 MG TABLET GT SCH (21:53)
[2022-05-19] MEDS: LORAZEPAM 1 MG TABLET GT PRN (22:00)
[2022-05-20] MEDS: IPRATROPIUM BROMIDE 0.5 MG/2.5 ML NEBU NEB SCH ×4 (02:20→19:08)
[2022-05-20] MEDS: RILUZOLE 50 MG TAB GT SCH ×2 (05:15→17:22)
[2022-05-20] MEDS: OMEPRAZOLE 20 MG CAPSULE.DR GT SCH (05:15)
[2022-05-20] MEDS: GABAPENTIN 300 MG/6 ML GT SCH ×3 (05:15→21:42)
[2022-05-20 08:02] VITALS: TEMP 98.1
[2022-05-20] MEDS: HYDROGEN PEROXIDE 3% 118 ML BOTTLE TP SCH ×2 (09:00→19:08)
[2022-05-20] MEDS: OLOPATADINE 0.1% OPHT DROP 5 ML BOTTLE EACHEYE SCH ×2 (09:36→17:22)
[2022-05-20] MEDS: FLUOXETINE HCL 20 MG CAPSULE GT SCH (09:36)
[2022-05-20] MEDS: POLYVINYL ALCOHOL OPHT DROPS 15 ML BOTTLE EACHEYE SCH ×4 (09:36→21:42)
[2022-05-20] MEDS: BACLOFEN 20 MG TABLET GT SCH ×3 (09:36→17:22)
[2022-05-20] MEDS: LORATADINE 10 MG TABLET GT SCH (09:36)
[2022-05-20] MEDS: DOCUSATE SODIUM 100 MG/10 ML LIQUID UDC GT SCH ×2 (09:36→21:42)
[2022-05-20] MEDS: LIDOCAINE 5% PATCH TD SCH (09:36)
[2022-05-20] MEDS: CHLORHEXIDINE GLUCONATE 15 ML MOUTHWASH MM SCH ×2 (09:36→17:22)
[2022-05-20] MEDS: FLUTICASONE PROP NASAL SPRAY 16 GM BOTTLE NS SCH (09:36)
[2022-05-20] MEDS: HYDROCODONE/APAP 10-325 MG TABLET GT PRN ×2 (09:37→17:23)
[2022-05-20] MEDS: NEOMY/BACITRAC/POLYMI OINT 28.35 GM TUBE TOP SCH (09:37)
[2022-05-20] MEDS: REMEDY ESSENTIAL ZINC PASTE 113 GM TP SCH ×2 (09:37→21:42)
[2022-05-20] MEDS: ENOXAPARIN SODIUM 40 MG/0.4 ML DISP.SYRIN SQ SCH (09:47)
[2022-05-20 20:00] VITALS: TEMP 98
[2022-05-20] MEDS: hydrOXYzine HCL 25 MG TABLET GT SCH (21:42)
[2022-05-20] MEDS: MELATONIN 3 MG TABLET GT SCH (21:42)
[2022-05-20] MEDS: ATORVASTATIN 20 MG TABLET GT SCH (21:42)
[2022-05-20] MEDS: LORAZEPAM 1 MG TABLET GT PRN (22:00)
[2022-05-21] MEDS: IPRATROPIUM BROMIDE 0.5 MG/2.5 ML NEBU NEB SCH ×4 (01:30→19:25)
[2022-05-21] MEDS: JEVITY 1.2 1000 ML LIQUID GT PRN (03:15)
[2022-05-21] MEDS: GABAPENTIN 300 MG/6 ML GT SCH ×3 (05:13→21:51)
[2022-05-21] MEDS: RILUZOLE 50 MG TAB GT SCH ×2 (05:13→17:59)
[2022-05-21] MEDS: OMEPRAZOLE 20 MG CAPSULE.DR GT SCH (05:13)
[2022-05-21] MEDS: HYDROGEN PEROXIDE 3% 118 ML BOTTLE TP SCH ×2 (07:34→21:28)
[2022-05-21 08:00] VITALS: TEMP 97.6
[2022-05-21] MEDS: REMEDY ESSENTIAL ZINC PASTE 113 GM TP SCH ×2 (09:02→21:52)
[2022-05-21] MEDS: ENOXAPARIN SODIUM 40 MG/0.4 ML DISP.SYRIN SQ SCH (09:02)
[2022-05-21] MEDS: FLUOXETINE HCL 20 MG CAPSULE GT SCH (09:02)
[2022-05-21] MEDS: POLYVINYL ALCOHOL OPHT DROPS 15 ML BOTTLE EACHEYE SCH ×4 (09:02→21:51)
[2022-05-21] MEDS: FLUTICASONE PROP NASAL SPRAY 16 GM BOTTLE NS SCH (09:02)
[2022-05-21] MEDS: DOCUSATE SODIUM 100 MG/10 ML LIQUID UDC GT SCH ×2 (09:02→21:51)
[2022-05-21] MEDS: BACLOFEN 20 MG TABLET GT SCH ×3 (09:02→17:59)
[2022-05-21] MEDS: LIDOCAINE 5% PATCH TD SCH (09:02)
[2022-05-21] MEDS: NEOMY/BACITRAC/POLYMI OINT 28.35 GM TUBE TOP SCH (09:02)
[2022-05-21] MEDS: LORATADINE 10 MG TABLET GT SCH (09:02)
[2022-05-21] MEDS: OLOPATADINE 0.1% OPHT DROP 5 ML BOTTLE EACHEYE SCH ×2 (09:02→17:59)
[2022-05-21] MEDS: CHLORHEXIDINE GLUCONATE 15 ML MOUTHWASH MM SCH ×2 (09:02→17:59)
[2022-05-21] MEDS: HYDROCODONE/APAP 10-325 MG TABLET GT PRN ×3 (09:06→18:14)
[2022-05-21 20:00] VITALS: TEMP 98.2
[2022-05-21] MEDS: hydrOXYzine HCL 25 MG TABLET GT SCH (21:51)
[2022-05-21] MEDS: ATORVASTATIN 20 MG TABLET GT SCH (21:51)
[2022-05-21] MEDS: MELATONIN 3 MG TABLET GT SCH (21:51)
[2022-05-22] MEDS: IPRATROPIUM BROMIDE 0.5 MG/2.5 ML NEBU NEB SCH ×4 (00:40→19:20)
[2022-05-22] MEDS: JEVITY 1.2 1000 ML LIQUID GT PRN (05:37)
[2022-05-22] MEDS: OMEPRAZOLE 20 MG CAPSULE.DR GT SCH (05:45)
[2022-05-22] MEDS: GABAPENTIN 300 MG/6 ML GT SCH ×3 (05:45→21:00)
[2022-05-22] MEDS: RILUZOLE 50 MG TAB GT SCH ×2 (05:45→17:39)
[2022-05-22 07:30] VITALS: TEMP 99
[2022-05-22] MEDS: HYDROGEN PEROXIDE 3% 118 ML BOTTLE TP SCH ×2 (07:35→20:54)
[2022-05-22] MEDS: DOCUSATE SODIUM 100 MG/10 ML LIQUID UDC GT SCH ×2 (09:33→20:55)
[2022-05-22] MEDS: HYDROCODONE/APAP 10-325 MG TABLET GT PRN ×3 (09:33→18:02)
[2022-05-22] MEDS: OLOPATADINE 0.1% OPHT DROP 5 ML BOTTLE EACHEYE SCH ×2 (09:33→17:38)
[2022-05-22] MEDS: LORATADINE 10 MG TABLET GT SCH (09:33)
[2022-05-22] MEDS: POLYVINYL ALCOHOL OPHT DROPS 15 ML BOTTLE EACHEYE SCH ×4 (09:33→20:54)
[2022-05-22] MEDS: FLUTICASONE PROP NASAL SPRAY 16 GM BOTTLE NS SCH (09:34)
[2022-05-22] MEDS: LIDOCAINE 5% PATCH TD SCH (09:34)
[2022-05-22] MEDS: FLUOXETINE HCL 20 MG CAPSULE GT SCH (09:34)
[2022-05-22] MEDS: CHLORHEXIDINE GLUCONATE 15 ML MOUTHWASH MM SCH ×2 (09:34→17:38)
[2022-05-22] MEDS: BACLOFEN 20 MG TABLET GT SCH ×3 (09:34→17:38)
[2022-05-22] MEDS: REMEDY ESSENTIAL ZINC PASTE 113 GM TP SCH ×2 (09:34→20:56)
[2022-05-22] MEDS: NEOMY/BACITRAC/POLYMI OINT 28.35 GM TUBE TOP SCH (09:34)
[2022-05-22] MEDS: ENOXAPARIN SODIUM 40 MG/0.4 ML DISP.SYRIN SQ SCH (09:34)
[2022-05-22] MEDS: hydrOXYzine HCL 25 MG TABLET GT SCH (20:54)
[2022-05-22] MEDS: ATORVASTATIN 20 MG TABLET GT SCH (20:55)
[2022-05-22] MEDS: MELATONIN 3 MG TABLET GT SCH (20:56)
[2022-05-22] MEDS: ONDANSETRON HCL 4 MG TABLET GT PRN (21:17)
[2022-05-22] MEDS: LORAZEPAM 1 MG TABLET GT PRN (21:17)
[2022-05-22 22:08] VITALS: TEMP 98
[2022-05-23] MEDS: IPRATROPIUM BROMIDE 0.5 MG/2.5 ML NEBU NEB SCH ×4 (00:38→19:22)
[2022-05-23] MEDS: OMEPRAZOLE 20 MG CAPSULE.DR GT SCH (05:54)
[2022-05-23] MEDS: RILUZOLE 50 MG TAB GT SCH ×2 (05:54→17:27)
[2022-05-23] MEDS: GABAPENTIN 300 MG/6 ML GT SCH ×3 (05:54→21:00)
[2022-05-23] MEDS: JEVITY 1.2 1000 ML LIQUID GT PRN (05:58)
[2022-05-23 08:00] VITALS: TEMP 97.8
[2022-05-23] MEDS: HYDROGEN PEROXIDE 3% 118 ML BOTTLE TP SCH ×2 (09:00→21:19)
[2022-05-23] MEDS: DOCUSATE SODIUM 100 MG/10 ML LIQUID UDC GT SCH ×2 (09:22→21:34)
[2022-05-23] MEDS: POLYVINYL ALCOHOL OPHT DROPS 15 ML BOTTLE EACHEYE SCH ×4 (09:22→21:00)
[2022-05-23] MEDS: FLUOXETINE HCL 20 MG CAPSULE GT SCH (09:23)
[2022-05-23] MEDS: OLOPATADINE 0.1% OPHT DROP 5 ML BOTTLE EACHEYE SCH ×2 (09:24→17:27)
[2022-05-23] MEDS: BACLOFEN 20 MG TABLET GT SCH ×3 (09:24→17:27)
[2022-05-23] MEDS: CHLORHEXIDINE GLUCONATE 15 ML MOUTHWASH MM SCH ×2 (09:26→17:27)
[2022-05-23] MEDS: FLUTICASONE PROP NASAL SPRAY 16 GM BOTTLE NS SCH (09:27)
[2022-05-23] MEDS: ENOXAPARIN SODIUM 40 MG/0.4 ML DISP.SYRIN SQ SCH (09:31)
[2022-05-23] MEDS: LORATADINE 10 MG TABLET GT SCH (09:33)
[2022-05-23] MEDS: LIDOCAINE 5% PATCH TD SCH (09:34)
[2022-05-23] MEDS: NEOMY/BACITRAC/POLYMI OINT 28.35 GM TUBE TOP SCH (09:34)
[2022-05-23] MEDS: HYDROCODONE/APAP 10-325 MG TABLET GT PRN ×3 (09:40→17:32)
[2022-05-23] MEDS: REMEDY ESSENTIAL ZINC PASTE 113 GM TP SCH ×2 (09:54→21:33)
[2022-05-23 20:28] VITALS: TEMP 98.6
[2022-05-23] MEDS: hydrOXYzine HCL 25 MG TABLET GT SCH (21:32)
[2022-05-23] MEDS: ATORVASTATIN 20 MG TABLET GT SCH (21:33)
[2022-05-23] MEDS: MELATONIN 3 MG TABLET GT SCH (21:35)
[2022-05-23] MEDS: LORAZEPAM 1 MG TABLET GT PRN (21:50)
[2022-05-23] MEDS: ONDANSETRON HCL 4 MG TABLET GT PRN (21:57)
[2022-05-24] MEDS: IPRATROPIUM BROMIDE 0.5 MG/2.5 ML NEBU NEB SCH ×4 (00:35→18:56)
[2022-05-24] MEDS: GABAPENTIN 300 MG/6 ML GT SCH ×3 (05:16→20:20)
[2022-05-24] MEDS: RILUZOLE 50 MG TAB GT SCH ×2 (05:16→17:29)
[2022-05-24] MEDS: OMEPRAZOLE 20 MG CAPSULE.DR GT SCH (05:16)
[2022-05-24 06:49] LABS: BASOPHILS % (AUTO) 0.4 % (0.0-2.0); EOSINOPHILS # (AUTO) 0.3 K/uL (0.0-0.7); HEMATOCRIT 36.6 % (31.2-41.9); HEMOGLOBIN 12.2 g/dL (10.9-14.3); LYMPHOCYTES # (AUTO) 1.5 K/uL (0.8-4.8); MEAN CORPUSCULAR HEMOGLOBIN 31.2 uug (24.7-32.8); MEAN CORPUSCULAR HGB CONC 33 g/dL (32.3-35.6); MEAN CORPUSCULAR VOLUME 93.6 fL (75.5-95.3); MONOCYTES # (AUTO) 0.3 K/uL (0.1-1.30); MONOCYTES % (AUTO) 6.9 % (0.0-11.0); NEUTROPHILS # (AUTO) 2.8 K/uL (1.8-8.9); NEUTROPHILS % (AUTO) 55.7 % (38.5-71.5); PLATELET COUNT (AUTO) 207 K/uL (179-408); RED BLOOD CELL COUNT(AUTO) 3.91 MIL/uL (3.63-4.92); WHITE BLOOD COUNT (AUTO) 4.9 K/uL (3.8-11.8)
[2022-05-24] MEDS: JEVITY 1.2 1000 ML LIQUID GT PRN (07:14)
[2022-05-24 07:26] LABS: ALANINE AMINOTRANSFERASE 34 U/L (14-59); ALBUMIN 3.2 g/dL (3.4-5.0); ALKALINE PHOSPHATASE 110 U/L (50-136); ASPARTATE AMINOTRANSFERASE 25 U/L (15-37); BILIRUBIN,TOTAL 0.4 mg/dL (0.2-1.0); CALCIUM 9.4 mg/dL (8.5-10.1); CARBON DIOXIDE 32 mmol/L (21-32); CHLORIDE 99 mmol/L (98-107); CREATININE 0.3 mg/dL (0.6-1.3); GLUCOSE 99 mg/dL (74-106); MAGNESIUM 2.3 mg/dL (1.8-2.4); PHOSPHOROUS 5.2 mg/dL (2.5-4.9); POTASSIUM 3.9 mmol/L (3.5-5.1); SODIUM SERUM 139 mmol/L (136-145); TOTAL PROTEIN, SERUM 7.4 g/dL (6.4-8.2); UREA NITROGEN, BLOOD 14 mg/dL (7-18)
[2022-05-24 08:00] VITALS: TEMP 97.8
[2022-05-24 08:03] LABS: DIFFERENTIAL COMMENT 1
[2022-05-24 08:15] LABS: C-REACTIVE PROTEIN < 0.2 mg/dL (0.0-0.9)
[2022-05-24] MEDS: POLYVINYL ALCOHOL OPHT DROPS 15 ML BOTTLE EACHEYE SCH ×4 (09:17→20:16)
[2022-05-24] MEDS: CHLORHEXIDINE GLUCONATE 15 ML MOUTHWASH MM SCH ×2 (09:17→17:29)
[2022-05-24] MEDS: BACLOFEN 20 MG TABLET GT SCH ×3 (09:17→17:29)
[2022-05-24] MEDS: FLUOXETINE HCL 20 MG CAPSULE GT SCH (09:17)
[2022-05-24] MEDS: DOCUSATE SODIUM 100 MG/10 ML LIQUID UDC GT SCH ×2 (09:17→20:17)
[2022-05-24] MEDS: OLOPATADINE 0.1% OPHT DROP 5 ML BOTTLE EACHEYE SCH ×2 (09:17→17:29)
[2022-05-24] MEDS: LORATADINE 10 MG TABLET GT SCH (09:17)
[2022-05-24] MEDS: FLUTICASONE PROP NASAL SPRAY 16 GM BOTTLE NS SCH (09:18)
[2022-05-24] MEDS: ENOXAPARIN SODIUM 40 MG/0.4 ML DISP.SYRIN SQ SCH (09:18)
[2022-05-24] MEDS: NEOMY/BACITRAC/POLYMI OINT 28.35 GM TUBE TOP SCH (09:19)
[2022-05-24] MEDS: REMEDY ESSENTIAL ZINC PASTE 113 GM TP SCH ×2 (09:19→20:17)
[2022-05-24] MEDS: HYDROCODONE/APAP 10-325 MG TABLET GT PRN ×2 (09:19→17:30)
[2022-05-24] MEDS: LIDOCAINE 5% PATCH TD SCH (09:21)
[2022-05-24] MEDS: HYDROGEN PEROXIDE 3% 118 ML BOTTLE TP SCH ×2 (09:51→18:56)
[2022-05-24 20:02] VITALS: TEMP 98
[2022-05-24] MEDS: ATORVASTATIN 20 MG TABLET GT SCH (20:17)
[2022-05-24] MEDS: MELATONIN 3 MG TABLET GT SCH (20:17)
[2022-05-24] MEDS: hydrOXYzine HCL 25 MG TABLET GT SCH (20:17)
[2022-05-24] MEDS: LORAZEPAM 1 MG TABLET GT PRN (20:28)
[2022-05-24] MEDS: ONDANSETRON HCL 4 MG TABLET GT PRN (21:02)
[2022-05-25] MEDS: IPRATROPIUM BROMIDE 0.5 MG/2.5 ML NEBU NEB SCH ×4 (01:16→19:16)
[2022-05-25] MEDS: RILUZOLE 50 MG TAB GT SCH ×2 (05:32→17:16)
[2022-05-25] MEDS: OMEPRAZOLE 20 MG CAPSULE.DR GT SCH (05:32)
[2022-05-25] MEDS: GABAPENTIN 300 MG/6 ML GT SCH ×3 (05:32→20:40)
[2022-05-25] MEDS: HYDROGEN PEROXIDE 3% 118 ML BOTTLE TP SCH ×2 (07:50→19:16)
[2022-05-25 08:00] VITALS: TEMP 98.4
[2022-05-25] MEDS: POLYVINYL ALCOHOL OPHT DROPS 15 ML BOTTLE EACHEYE SCH ×4 (09:28→20:38)
[2022-05-25] MEDS: OLOPATADINE 0.1% OPHT DROP 5 ML BOTTLE EACHEYE SCH ×2 (09:29→17:15)
[2022-05-25] MEDS: LORATADINE 10 MG TABLET GT SCH (09:29)
[2022-05-25] MEDS: DOCUSATE SODIUM 100 MG/10 ML LIQUID UDC GT SCH ×2 (09:30→20:39)
[2022-05-25] MEDS: BACLOFEN 20 MG TABLET GT SCH ×3 (09:30→17:16)
[2022-05-25] MEDS: FLUTICASONE PROP NASAL SPRAY 16 GM BOTTLE NS SCH (09:31)
[2022-05-25] MEDS: CHLORHEXIDINE GLUCONATE 15 ML MOUTHWASH MM SCH ×2 (09:31→17:16)
[2022-05-25] MEDS: FLUOXETINE HCL 20 MG CAPSULE GT SCH (09:31)
[2022-05-25] MEDS: ENOXAPARIN SODIUM 40 MG/0.4 ML DISP.SYRIN SQ SCH (09:33)
[2022-05-25] MEDS: LIDOCAINE 5% PATCH TD SCH (09:34)
[2022-05-25] MEDS: REMEDY ESSENTIAL ZINC PASTE 113 GM TP SCH ×2 (09:34→20:40)
[2022-05-25] MEDS: NEOMY/BACITRAC/POLYMI OINT 28.35 GM TUBE TOP SCH (09:34)
[2022-05-25] MEDS: HYDROCODONE/APAP 10-325 MG TABLET GT PRN ×2 (09:35→17:17)
[2022-05-25] MEDS: JEVITY 1.2 1000 ML LIQUID GT PRN (17:23)
[2022-05-25 20:00] VITALS: TEMP 97.8
[2022-05-25] MEDS: hydrOXYzine HCL 25 MG TABLET GT SCH (20:39)
[2022-05-25] MEDS: ATORVASTATIN 20 MG TABLET GT SCH (20:39)
[2022-05-25] MEDS: MELATONIN 3 MG TABLET GT SCH (20:40)
[2022-05-25] MEDS: LORAZEPAM 1 MG TABLET GT PRN (20:46)
[2022-05-25] MEDS: ONDANSETRON HCL 4 MG TABLET GT PRN (21:48)
[2022-05-26] MEDS: IPRATROPIUM BROMIDE 0.5 MG/2.5 ML NEBU NEB SCH ×4 (00:47→19:13)
[2022-05-26] MEDS: GABAPENTIN 300 MG/6 ML GT SCH ×3 (06:18→20:46)
[2022-05-26] MEDS: RILUZOLE 50 MG TAB GT SCH ×2 (06:18→17:34)
[2022-05-26] MEDS: OMEPRAZOLE 20 MG CAPSULE.DR GT SCH (06:18)
[2022-05-26 07:30] VITALS: TEMP 97.7
[2022-05-26] MEDS: HYDROGEN PEROXIDE 3% 118 ML BOTTLE TP SCH ×2 (08:37→19:13)
[2022-05-26] MEDS: HYDROCODONE/APAP 10-325 MG TABLET GT PRN ×2 (09:30→17:34)
[2022-05-26] MEDS: ENOXAPARIN SODIUM 40 MG/0.4 ML DISP.SYRIN SQ SCH (09:30)
[2022-05-26] MEDS: LORATADINE 10 MG TABLET GT SCH (09:30)
[2022-05-26] MEDS: LIDOCAINE 5% PATCH TD SCH (09:30)
[2022-05-26] MEDS: OLOPATADINE 0.1% OPHT DROP 5 ML BOTTLE EACHEYE SCH ×2 (09:30→17:34)
[2022-05-26] MEDS: BACLOFEN 20 MG TABLET GT SCH ×3 (09:30→17:34)
[2022-05-26] MEDS: CHLORHEXIDINE GLUCONATE 15 ML MOUTHWASH MM SCH ×2 (09:30→17:34)
[2022-05-26] MEDS: FLUOXETINE HCL 20 MG CAPSULE GT SCH (09:30)
[2022-05-26] MEDS: NEOMY/BACITRAC/POLYMI OINT 28.35 GM TUBE TOP SCH (09:30)
[2022-05-26] MEDS: POLYVINYL ALCOHOL OPHT DROPS 15 ML BOTTLE EACHEYE SCH ×4 (09:30→20:42)
[2022-05-26] MEDS: DOCUSATE SODIUM 100 MG/10 ML LIQUID UDC GT SCH ×2 (09:30→20:46)
[2022-05-26] MEDS: REMEDY ESSENTIAL ZINC PASTE 113 GM TP SCH ×2 (09:30→20:43)
[2022-05-26] MEDS: FLUTICASONE PROP NASAL SPRAY 16 GM BOTTLE NS SCH (09:30)
[2022-05-26] MEDS: JEVITY 1.2 1000 ML LIQUID GT PRN (18:47)
[2022-05-26 20:00] VITALS: TEMP 98
[2022-05-26] MEDS: hydrOXYzine HCL 25 MG TABLET GT SCH (20:42)
[2022-05-26] MEDS: MELATONIN 3 MG TABLET GT SCH (20:43)
[2022-05-26] MEDS: ATORVASTATIN 20 MG TABLET GT SCH (20:43)
[2022-05-26] MEDS: LORAZEPAM 1 MG TABLET GT PRN (20:51)
[2022-05-26] MEDS: ONDANSETRON HCL 4 MG TABLET GT PRN (20:52)
[2022-05-27] MEDS: IPRATROPIUM BROMIDE 0.5 MG/2.5 ML NEBU NEB SCH ×4 (00:46→19:12)
[2022-05-27] MEDS: GABAPENTIN 300 MG/6 ML GT SCH ×3 (05:18→21:00)
[2022-05-27] MEDS: OMEPRAZOLE 20 MG CAPSULE.DR GT SCH (05:18)
[2022-05-27] MEDS: RILUZOLE 50 MG TAB GT SCH ×2 (05:18→17:49)
[2022-05-27] MEDS: HYDROGEN PEROXIDE 3% 118 ML BOTTLE TP SCH ×2 (09:28→19:12)
[2022-05-27] MEDS: HYDROCODONE/APAP 10-325 MG TABLET GT PRN ×3 (09:50→17:56)
[2022-05-27] MEDS: DOCUSATE SODIUM 100 MG/10 ML LIQUID UDC GT SCH ×2 (09:55→21:00)
[2022-05-27] MEDS: LORATADINE 10 MG TABLET GT SCH (09:55)
[2022-05-27] MEDS: LIDOCAINE 5% PATCH TD SCH (09:55)
[2022-05-27] MEDS: NEOMY/BACITRAC/POLYMI OINT 28.35 GM TUBE TOP SCH (09:55)
[2022-05-27] MEDS: FLUTICASONE PROP NASAL SPRAY 16 GM BOTTLE NS SCH (09:55)
[2022-05-27] MEDS: CHLORHEXIDINE GLUCONATE 15 ML MOUTHWASH MM SCH ×2 (09:55→17:49)
[2022-05-27] MEDS: REMEDY ESSENTIAL ZINC PASTE 113 GM TP SCH ×2 (09:55→21:00)
[2022-05-27] MEDS: POLYVINYL ALCOHOL OPHT DROPS 15 ML BOTTLE EACHEYE SCH ×4 (09:55→21:00)
[2022-05-27] MEDS: BACLOFEN 20 MG TABLET GT SCH ×3 (09:55→17:49)
[2022-05-27] MEDS: OLOPATADINE 0.1% OPHT DROP 5 ML BOTTLE EACHEYE SCH ×2 (09:55→17:49)
[2022-05-27] MEDS: FLUOXETINE HCL 20 MG CAPSULE GT SCH (09:55)
[2022-05-27] MEDS: ENOXAPARIN SODIUM 40 MG/0.4 ML DISP.SYRIN SQ SCH (09:56)
[2022-05-27] MEDS: JEVITY 1.2 1000 ML LIQUID GT PRN (18:02)
[2022-05-27 20:33] VITALS: TEMP 98
[2022-05-27] MEDS: ATORVASTATIN 20 MG TABLET GT SCH (21:00)
[2022-05-27] MEDS: MELATONIN 3 MG TABLET GT SCH (21:00)
[2022-05-27] MEDS: hydrOXYzine HCL 25 MG TABLET GT SCH (21:00)
[2022-05-27] MEDS: LORAZEPAM 1 MG TABLET GT PRN (22:00)
[2022-05-27] MEDS: ONDANSETRON HCL 4 MG TABLET GT PRN (22:15)
[2022-05-28] MEDS: IPRATROPIUM BROMIDE 0.5 MG/2.5 ML NEBU NEB SCH ×4 (01:16→19:17)
[2022-05-28] MEDS: RILUZOLE 50 MG TAB GT SCH ×2 (05:25→17:36)
[2022-05-28] MEDS: GABAPENTIN 300 MG/6 ML GT SCH ×3 (05:25→21:00)
[2022-05-28] MEDS: OMEPRAZOLE 20 MG CAPSULE.DR GT SCH (05:25)
[2022-05-28 07:38] VITALS: TEMP 98.1
[2022-05-28] MEDS: HYDROGEN PEROXIDE 3% 118 ML BOTTLE TP SCH ×2 (07:50→19:17)
[2022-05-28] MEDS: OLOPATADINE 0.1% OPHT DROP 5 ML BOTTLE EACHEYE SCH ×2 (08:53→17:36)
[2022-05-28] MEDS: LORATADINE 10 MG TABLET GT SCH (08:53)
[2022-05-28] MEDS: DOCUSATE SODIUM 100 MG/10 ML LIQUID UDC GT SCH ×2 (08:53→21:00)
[2022-05-28] MEDS: POLYVINYL ALCOHOL OPHT DROPS 15 ML BOTTLE EACHEYE SCH ×4 (08:53→21:00)
[2022-05-28] MEDS: BACLOFEN 20 MG TABLET GT SCH ×3 (08:54→17:36)
[2022-05-28] MEDS: FLUTICASONE PROP NASAL SPRAY 16 GM BOTTLE NS SCH (08:54)
[2022-05-28] MEDS: FLUOXETINE HCL 20 MG CAPSULE GT SCH (08:54)
[2022-05-28] MEDS: CHLORHEXIDINE GLUCONATE 15 ML MOUTHWASH MM SCH ×2 (08:54→17:36)
[2022-05-28] MEDS: NEOMY/BACITRAC/POLYMI OINT 28.35 GM TUBE TOP SCH (08:55)
[2022-05-28] MEDS: LIDOCAINE 5% PATCH TD SCH (08:55)
[2022-05-28] MEDS: ENOXAPARIN SODIUM 40 MG/0.4 ML DISP.SYRIN SQ SCH (08:55)
[2022-05-28] MEDS: REMEDY ESSENTIAL ZINC PASTE 113 GM TP SCH ×2 (08:57→21:00)
[2022-05-28] MEDS: HYDROCODONE/APAP 10-325 MG TABLET GT PRN ×3 (08:58→17:42)
[2022-05-28 19:59] VITALS: TEMP 98.1
[2022-05-28] MEDS: ATORVASTATIN 20 MG TABLET GT SCH (21:00)
[2022-05-28] MEDS: hydrOXYzine HCL 25 MG TABLET GT SCH (21:00)
[2022-05-28] MEDS: MELATONIN 3 MG TABLET GT SCH (21:00)
[2022-05-28] MEDS: ONDANSETRON HCL 4 MG TABLET GT PRN (22:00)
[2022-05-28] MEDS: JEVITY 1.2 1000 ML LIQUID GT PRN (22:07)
[2022-05-28] MEDS: LORAZEPAM 1 MG TABLET GT PRN (22:15)
[2022-05-29] MEDS: IPRATROPIUM BROMIDE 0.5 MG/2.5 ML NEBU NEB SCH ×4 (00:38→19:13)
[2022-05-29] MEDS: OMEPRAZOLE 20 MG CAPSULE.DR GT SCH (05:48)
[2022-05-29] MEDS: GABAPENTIN 300 MG/6 ML GT SCH ×3 (05:48→21:00)
[2022-05-29] MEDS: RILUZOLE 50 MG TAB GT SCH ×2 (05:48→17:23)
[2022-05-29 07:46] VITALS: TEMP 97.8
[2022-05-29] MEDS: POLYVINYL ALCOHOL OPHT DROPS 15 ML BOTTLE EACHEYE SCH ×4 (09:11→21:00)
[2022-05-29] MEDS: OLOPATADINE 0.1% OPHT DROP 5 ML BOTTLE EACHEYE SCH ×2 (09:11→17:21)
[2022-05-29] MEDS: DOCUSATE SODIUM 100 MG/10 ML LIQUID UDC GT SCH ×2 (09:12→21:00)
[2022-05-29] MEDS: LORATADINE 10 MG TABLET GT SCH (09:12)
[2022-05-29] MEDS: CHLORHEXIDINE GLUCONATE 15 ML MOUTHWASH MM SCH ×2 (09:13→17:22)
[2022-05-29] MEDS: BACLOFEN 20 MG TABLET GT SCH ×3 (09:13→17:22)
[2022-05-29] MEDS: FLUOXETINE HCL 20 MG CAPSULE GT SCH (09:13)
[2022-05-29] MEDS: FLUTICASONE PROP NASAL SPRAY 16 GM BOTTLE NS SCH (09:14)
[2022-05-29] MEDS: REMEDY ESSENTIAL ZINC PASTE 113 GM TP SCH ×2 (09:15→21:00)
[2022-05-29] MEDS: NEOMY/BACITRAC/POLYMI OINT 28.35 GM TUBE TOP SCH (09:15)
[2022-05-29] MEDS: ENOXAPARIN SODIUM 40 MG/0.4 ML DISP.SYRIN SQ SCH (09:16)
[2022-05-29] MEDS: HYDROCODONE/APAP 10-325 MG TABLET GT PRN ×3 (09:23→18:33)
[2022-05-29] MEDS: LIDOCAINE 5% PATCH TD SCH (09:36)
[2022-05-29] MEDS: HYDROGEN PEROXIDE 3% 118 ML BOTTLE TP SCH ×2 (10:10→19:13)
[2022-05-29] MEDS: JEVITY 1.2 1000 ML LIQUID GT PRN (19:19)
[2022-05-29 20:35] VITALS: TEMP 98.3
[2022-05-29] MEDS: ATORVASTATIN 20 MG TABLET GT SCH (21:00)
[2022-05-29] MEDS: hydrOXYzine HCL 25 MG TABLET GT SCH (21:00)
[2022-05-29] MEDS: MELATONIN 3 MG TABLET GT SCH (21:00)
[2022-05-29] MEDS: LORAZEPAM 1 MG TABLET GT PRN (22:02)
[2022-05-29] MEDS: ONDANSETRON HCL 4 MG TABLET GT PRN (22:03)
[2022-05-30] MEDS: IPRATROPIUM BROMIDE 0.5 MG/2.5 ML NEBU NEB SCH ×4 (00:40→19:12)
[2022-05-30] MEDS: GABAPENTIN 300 MG/6 ML GT SCH ×3 (05:09→21:13)
[2022-05-30] MEDS: RILUZOLE 50 MG TAB GT SCH ×2 (05:09→17:44)
[2022-05-30] MEDS: OMEPRAZOLE 20 MG CAPSULE.DR GT SCH (05:09)
[2022-05-30 08:00] VITALS: TEMP 98.1
[2022-05-30] MEDS: DOCUSATE SODIUM 100 MG/10 ML LIQUID UDC GT SCH ×2 (08:39→21:13)
[2022-05-30] MEDS: OLOPATADINE 0.1% OPHT DROP 5 ML BOTTLE EACHEYE SCH ×2 (08:39→17:44)
[2022-05-30] MEDS: LORATADINE 10 MG TABLET GT SCH (08:39)
[2022-05-30] MEDS: NEOMY/BACITRAC/POLYMI OINT 28.35 GM TUBE TOP SCH (08:40)
[2022-05-30] MEDS: BACLOFEN 20 MG TABLET GT SCH ×3 (08:40→17:44)
[2022-05-30] MEDS: FLUOXETINE HCL 20 MG CAPSULE GT SCH (08:40)
[2022-05-30] MEDS: CHLORHEXIDINE GLUCONATE 15 ML MOUTHWASH MM SCH ×2 (08:40→17:44)
[2022-05-30] MEDS: REMEDY ESSENTIAL ZINC PASTE 113 GM TP SCH ×2 (08:40→21:13)
[2022-05-30] MEDS: FLUTICASONE PROP NASAL SPRAY 16 GM BOTTLE NS SCH (08:40)
[2022-05-30] MEDS: ENOXAPARIN SODIUM 40 MG/0.4 ML DISP.SYRIN SQ SCH (08:41)
[2022-05-30] MEDS: POLYVINYL ALCOHOL OPHT DROPS 15 ML BOTTLE EACHEYE SCH ×4 (08:47→21:13)
[2022-05-30] MEDS: HYDROGEN PEROXIDE 3% 118 ML BOTTLE TP SCH ×2 (09:07→19:12)
[2022-05-30] MEDS: MAGNESIUM HYDROXIDE 30 ML LIQUID UDC GT PRN (09:15)
[2022-05-30] MEDS: LIDOCAINE 5% PATCH TD SCH (09:18)
[2022-05-30] MEDS: HYDROCODONE/APAP 10-325 MG TABLET GT PRN ×2 (10:51→18:00)
[2022-05-30 20:25] VITALS: TEMP 97.9
[2022-05-30] MEDS: ATORVASTATIN 20 MG TABLET GT SCH (21:13)
[2022-05-30] MEDS: hydrOXYzine HCL 25 MG TABLET GT SCH (21:13)
[2022-05-30] MEDS: MELATONIN 3 MG TABLET GT SCH (21:13)
[2022-05-30] MEDS: ONDANSETRON HCL 4 MG TABLET GT PRN (21:14)
[2022-05-30] MEDS: LORAZEPAM 1 MG TABLET GT PRN (21:14)
[2022-05-31] MEDS: IPRATROPIUM BROMIDE 0.5 MG/2.5 ML NEBU NEB SCH ×4 (01:26→19:13)
[2022-05-31] MEDS: RILUZOLE 50 MG TAB GT SCH ×2 (05:07→17:16)
[2022-05-31] MEDS: GABAPENTIN 300 MG/6 ML GT SCH ×3 (05:07→21:05)
[2022-05-31] MEDS: OMEPRAZOLE 20 MG CAPSULE.DR GT SCH (05:07)
[2022-05-31 08:00] VITALS: TEMP 98.4
[2022-05-31] MEDS: POLYVINYL ALCOHOL OPHT DROPS 15 ML BOTTLE EACHEYE SCH ×4 (09:12→21:02)
[2022-05-31] MEDS: BACLOFEN 20 MG TABLET GT SCH ×3 (09:13→17:16)
[2022-05-31] MEDS: FLUOXETINE HCL 20 MG CAPSULE GT SCH (09:13)
[2022-05-31] MEDS: OLOPATADINE 0.1% OPHT DROP 5 ML BOTTLE EACHEYE SCH ×2 (09:13→17:16)
[2022-05-31] MEDS: DOCUSATE SODIUM 100 MG/10 ML LIQUID UDC GT SCH ×2 (09:13→21:03)
[2022-05-31] MEDS: LORATADINE 10 MG TABLET GT SCH (09:13)
[2022-05-31] MEDS: CHLORHEXIDINE GLUCONATE 15 ML MOUTHWASH MM SCH ×2 (09:14→17:16)
[2022-05-31] MEDS: FLUTICASONE PROP NASAL SPRAY 16 GM BOTTLE NS SCH (09:14)
[2022-05-31] MEDS: NEOMY/BACITRAC/POLYMI OINT 28.35 GM TUBE TOP SCH (09:15)
[2022-05-31] MEDS: REMEDY ESSENTIAL ZINC PASTE 113 GM TP SCH ×2 (09:15→21:04)
[2022-05-31] MEDS: ENOXAPARIN SODIUM 40 MG/0.4 ML DISP.SYRIN SQ SCH (09:15)
[2022-05-31] MEDS: HYDROGEN PEROXIDE 3% 118 ML BOTTLE TP SCH ×2 (09:24→19:13)
[2022-05-31] MEDS: LIDOCAINE 5% PATCH TD SCH (09:43)
[2022-05-31 10:00] VITALS: O2SAT 99
[2022-05-31] MEDS: HYDROCODONE/APAP 10-325 MG TABLET GT PRN ×2 (10:26→18:45)
[2022-05-31] MEDS: JEVITY 1.2 1000 ML LIQUID GT PRN (17:16)
[2022-05-31 20:00] VITALS: TEMP 98.2
[2022-05-31] MEDS: hydrOXYzine HCL 25 MG TABLET GT SCH (21:02)
[2022-05-31] MEDS: MELATONIN 3 MG TABLET GT SCH (21:03)
[2022-05-31] MEDS: ATORVASTATIN 20 MG TABLET GT SCH (21:03)
[2022-05-31] MEDS: LORAZEPAM 1 MG TABLET GT PRN (21:04)
[2022-05-31] MEDS: ONDANSETRON HCL 4 MG TABLET GT PRN (21:04)
[2022-06-01] MEDS: IPRATROPIUM BROMIDE 0.5 MG/2.5 ML NEBU NEB SCH ×4 (01:35→19:02)
[2022-06-01] MEDS: GABAPENTIN 300 MG/6 ML GT SCH ×3 (05:37→21:25)
[2022-06-01] MEDS: RILUZOLE 50 MG TAB GT SCH ×2 (05:39→17:42)
[2022-06-01] MEDS: OMEPRAZOLE 20 MG CAPSULE.DR GT SCH (05:39)
[2022-06-01] MEDS: HYDROGEN PEROXIDE 3% 118 ML BOTTLE TP SCH ×2 (08:37→19:02)
[2022-06-01] MEDS: NEOMY/BACITRAC/POLYMI OINT 28.35 GM TUBE TOP SCH (09:00)
[2022-06-01] MEDS: LORATADINE 10 MG TABLET GT SCH (09:00)
[2022-06-01] MEDS: CHLORHEXIDINE GLUCONATE 15 ML MOUTHWASH MM SCH ×2 (09:00→17:41)
[2022-06-01] MEDS: REMEDY ESSENTIAL ZINC PASTE 113 GM TP SCH ×2 (09:00→21:26)
[2022-06-01] MEDS: FLUTICASONE PROP NASAL SPRAY 16 GM BOTTLE NS SCH (09:00)
[2022-06-01] MEDS: POLYVINYL ALCOHOL OPHT DROPS 15 ML BOTTLE EACHEYE SCH ×4 (09:00→21:23)
[2022-06-01] MEDS: DOCUSATE SODIUM 100 MG/10 ML LIQUID UDC GT SCH ×2 (09:00→21:25)
[2022-06-01] MEDS: BACLOFEN 20 MG TABLET GT SCH ×3 (09:00→17:42)
[2022-06-01] MEDS: OLOPATADINE 0.1% OPHT DROP 5 ML BOTTLE EACHEYE SCH ×2 (09:00→17:40)
[2022-06-01] MEDS: ENOXAPARIN SODIUM 40 MG/0.4 ML DISP.SYRIN SQ SCH (09:00)
[2022-06-01] MEDS: FLUOXETINE HCL 20 MG CAPSULE GT SCH (09:00)
[2022-06-01 09:16] VITALS: TEMP 98.1
[2022-06-01] MEDS: HYDROCODONE/APAP 10-325 MG TABLET GT PRN ×2 (10:24→17:47)
[2022-06-01] MEDS: LIDOCAINE 5% PATCH TD SCH (10:43)
[2022-06-01] MEDS: JEVITY 1.2 1000 ML LIQUID GT PRN (14:10)
[2022-06-01 20:21] VITALS: TEMP 98
[2022-06-01] MEDS: hydrOXYzine HCL 25 MG TABLET GT SCH (21:24)
[2022-06-01] MEDS: MELATONIN 3 MG TABLET GT SCH (21:25)
[2022-06-01] MEDS: ATORVASTATIN 20 MG TABLET GT SCH (21:25)
[2022-06-01] MEDS: LORAZEPAM 1 MG TABLET GT PRN (21:27)
[2022-06-01] MEDS: ONDANSETRON HCL 4 MG TABLET GT PRN (21:27)
[2022-06-02] MEDS: IPRATROPIUM BROMIDE 0.5 MG/2.5 ML NEBU NEB SCH ×4 (01:02→19:06)
[2022-06-02] MEDS: GABAPENTIN 300 MG/6 ML GT SCH ×3 (05:19→20:40)
[2022-06-02] MEDS: OMEPRAZOLE 20 MG CAPSULE.DR GT SCH (05:22)
[2022-06-02] MEDS: RILUZOLE 50 MG TAB GT SCH ×2 (05:23→17:30)
[2022-06-02 07:22] VITALS: TEMP 98
[2022-06-02] MEDS: POLYVINYL ALCOHOL OPHT DROPS 15 ML BOTTLE EACHEYE SCH ×4 (08:41→20:38)
[2022-06-02] MEDS: OLOPATADINE 0.1% OPHT DROP 5 ML BOTTLE EACHEYE SCH ×2 (08:41→17:30)
[2022-06-02] MEDS: DOCUSATE SODIUM 100 MG/10 ML LIQUID UDC GT SCH ×2 (08:42→20:40)
[2022-06-02] MEDS: LORATADINE 10 MG TABLET GT SCH (08:42)
[2022-06-02] MEDS: BACLOFEN 20 MG TABLET GT SCH ×3 (08:43→17:30)
[2022-06-02] MEDS: CHLORHEXIDINE GLUCONATE 15 ML MOUTHWASH MM SCH ×2 (08:43→17:30)
[2022-06-02] MEDS: FLUOXETINE HCL 20 MG CAPSULE GT SCH (08:43)
[2022-06-02] MEDS: FLUTICASONE PROP NASAL SPRAY 16 GM BOTTLE NS SCH (08:43)
[2022-06-02] MEDS: REMEDY ESSENTIAL ZINC PASTE 113 GM TP SCH ×2 (08:45→20:41)
[2022-06-02] MEDS: NEOMY/BACITRAC/POLYMI OINT 28.35 GM TUBE TOP SCH (08:45)
[2022-06-02] MEDS: ENOXAPARIN SODIUM 40 MG/0.4 ML DISP.SYRIN SQ SCH (08:46)
[2022-06-02] MEDS: HYDROGEN PEROXIDE 3% 118 ML BOTTLE TP SCH ×2 (09:32→19:06)
[2022-06-02] MEDS: LIDOCAINE 5% PATCH TD SCH (11:19)
[2022-06-02] MEDS: HYDROCODONE/APAP 10-325 MG TABLET GT PRN ×2 (11:37→17:29)
[2022-06-02 19:43] VITALS: TEMP 98.7
[2022-06-02 19:45] VITALS: TEMP 97.8
[2022-06-02] MEDS: hydrOXYzine HCL 25 MG TABLET GT SCH (20:39)
[2022-06-02] MEDS: MELATONIN 3 MG TABLET GT SCH (20:40)
[2022-06-02] MEDS: ATORVASTATIN 20 MG TABLET GT SCH (20:40)
[2022-06-02] MEDS: LORAZEPAM 1 MG TABLET GT PRN (20:41)
[2022-06-03] MEDS: IPRATROPIUM BROMIDE 0.5 MG/2.5 ML NEBU NEB SCH ×4 (01:07→19:08)
[2022-06-03] MEDS: GABAPENTIN 300 MG/6 ML GT SCH (05:15)
[2022-06-03] MEDS: OMEPRAZOLE 20 MG CAPSULE.DR GT SCH (05:16)
[2022-06-03] MEDS: RILUZOLE 50 MG TAB GT SCH ×2 (05:17→18:17)
[2022-06-03 07:34] VITALS: TEMP 97.8
[2022-06-03] MEDS: HYDROGEN PEROXIDE 3% 118 ML BOTTLE TP SCH ×2 (09:24→19:08)
[2022-06-03] MEDS: HYDROCODONE/APAP 10-325 MG TABLET GT PRN ×2 (09:45→17:00)
[2022-06-03] MEDS: DOCUSATE SODIUM 100 MG/10 ML LIQUID UDC GT SCH ×2 (09:50→21:26)
[2022-06-03] MEDS: CHLORHEXIDINE GLUCONATE 15 ML MOUTHWASH MM SCH ×2 (09:50→16:59)
[2022-06-03] MEDS: OLOPATADINE 0.1% OPHT DROP 5 ML BOTTLE EACHEYE SCH ×2 (09:50→16:58)
[2022-06-03] MEDS: FLUTICASONE PROP NASAL SPRAY 16 GM BOTTLE NS SCH (09:50)
[2022-06-03] MEDS: LORATADINE 10 MG TABLET GT SCH (09:50)
[2022-06-03] MEDS: BACLOFEN 20 MG TABLET GT SCH ×3 (09:50→16:59)
[2022-06-03] MEDS: POLYVINYL ALCOHOL OPHT DROPS 15 ML BOTTLE EACHEYE SCH ×4 (09:50→21:25)
[2022-06-03] MEDS: FLUOXETINE HCL 20 MG CAPSULE GT SCH (09:50)
[2022-06-03] MEDS: REMEDY ESSENTIAL ZINC PASTE 113 GM TP SCH ×2 (09:51→21:28)
[2022-06-03] MEDS: NEOMY/BACITRAC/POLYMI OINT 28.35 GM TUBE TOP SCH (09:51)
[2022-06-03] MEDS: ENOXAPARIN SODIUM 40 MG/0.4 ML DISP.SYRIN SQ SCH (09:51)
[2022-06-03] MEDS: LIDOCAINE 5% PATCH TD SCH (09:51)
[2022-06-03] MEDS: GABAPENTIN 400 MG CAPSULE GT SCH ×2 (14:02→21:00)
[2022-06-03 20:06] VITALS: TEMP 98.7
[2022-06-03] MEDS: hydrOXYzine HCL 25 MG TABLET GT SCH (21:26)
[2022-06-03] MEDS: ATORVASTATIN 20 MG TABLET GT SCH (21:27)
[2022-06-03] MEDS: MELATONIN 3 MG TABLET GT SCH (21:27)
[2022-06-03] MEDS: LORAZEPAM 1 MG TABLET GT PRN (21:30)
[2022-06-04] MEDS: IPRATROPIUM BROMIDE 0.5 MG/2.5 ML NEBU NEB SCH ×4 (00:58→18:30)
[2022-06-04] MEDS: GABAPENTIN 400 MG CAPSULE GT SCH ×3 (05:33→21:35)
[2022-06-04] MEDS: RILUZOLE 50 MG TAB GT SCH ×2 (05:34→18:21)
[2022-06-04] MEDS: OMEPRAZOLE 20 MG CAPSULE.DR GT SCH (05:34)
[2022-06-04] MEDS: HYDROGEN PEROXIDE 3% 118 ML BOTTLE TP SCH ×3 (07:40→18:31)
[2022-06-04 07:52] VITALS: TEMP 98.5
[2022-06-04] MEDS: POLYVINYL ALCOHOL OPHT DROPS 15 ML BOTTLE EACHEYE SCH ×4 (09:29→21:23)
[2022-06-04] MEDS: OLOPATADINE 0.1% OPHT DROP 5 ML BOTTLE EACHEYE SCH ×2 (09:31→17:00)
[2022-06-04] MEDS: BACLOFEN 20 MG TABLET GT SCH ×3 (09:34→17:00)
[2022-06-04] MEDS: LORATADINE 10 MG TABLET GT SCH (09:35)
[2022-06-04] MEDS: DOCUSATE SODIUM 100 MG/10 ML LIQUID UDC GT SCH ×2 (09:36→21:23)
[2022-06-04] MEDS: FLUTICASONE PROP NASAL SPRAY 16 GM BOTTLE NS SCH (09:37)
[2022-06-04] MEDS: CHLORHEXIDINE GLUCONATE 15 ML MOUTHWASH MM SCH ×2 (09:38→17:00)
[2022-06-04] MEDS: FLUOXETINE HCL 20 MG CAPSULE GT SCH (09:39)
[2022-06-04] MEDS: REMEDY ESSENTIAL ZINC PASTE 113 GM TP SCH ×2 (09:40→21:35)
[2022-06-04] MEDS: NEOMY/BACITRAC/POLYMI OINT 28.35 GM TUBE TOP SCH (09:40)
[2022-06-04] MEDS: LIDOCAINE 5% PATCH TD SCH (09:45)
[2022-06-04] MEDS: ENOXAPARIN SODIUM 40 MG/0.4 ML DISP.SYRIN SQ SCH (10:01)
[2022-06-04] MEDS: HYDROCODONE/APAP 10-325 MG TABLET GT PRN ×3 (13:42→21:21)
[2022-06-04] MEDS: JEVITY 1.2 1000 ML LIQUID GT PRN (19:31)
[2022-06-04 20:17] VITALS: TEMP 98.8
[2022-06-04] MEDS: hydrOXYzine HCL 25 MG TABLET GT SCH (21:23)
[2022-06-04] MEDS: ATORVASTATIN 20 MG TABLET GT SCH (21:24)
[2022-06-04] MEDS: MELATONIN 3 MG TABLET GT SCH (21:28)
[2022-06-04] MEDS: LORAZEPAM 1 MG TABLET GT PRN (23:42)
[2022-06-05] MEDS: IPRATROPIUM BROMIDE 0.5 MG/2.5 ML NEBU NEB SCH ×4 (01:52→21:38)
[2022-06-05] MEDS: OMEPRAZOLE 20 MG CAPSULE.DR GT SCH (05:37)
[2022-06-05] MEDS: RILUZOLE 50 MG TAB GT SCH ×2 (05:37→18:23)
[2022-06-05] MEDS: GABAPENTIN 400 MG CAPSULE GT SCH ×3 (05:37→21:00)
[2022-06-05 08:28] VITALS: TEMP 98.9
[2022-06-05] MEDS: OLOPATADINE 0.1% OPHT DROP 5 ML BOTTLE EACHEYE SCH ×2 (09:43→18:00)
[2022-06-05] MEDS: POLYVINYL ALCOHOL OPHT DROPS 15 ML BOTTLE EACHEYE SCH ×4 (09:43→21:52)
[2022-06-05] MEDS: LORATADINE 10 MG TABLET GT SCH (09:43)
[2022-06-05] MEDS: DOCUSATE SODIUM 100 MG/10 ML LIQUID UDC GT SCH ×2 (09:44→21:53)
[2022-06-05] MEDS: BACLOFEN 20 MG TABLET GT SCH ×3 (09:44→18:00)
[2022-06-05] MEDS: FLUTICASONE PROP NASAL SPRAY 16 GM BOTTLE NS SCH (09:45)
[2022-06-05] MEDS: FLUOXETINE HCL 20 MG CAPSULE GT SCH (09:45)
[2022-06-05] MEDS: CHLORHEXIDINE GLUCONATE 15 ML MOUTHWASH MM SCH ×2 (09:45→18:00)
[2022-06-05] MEDS: ENOXAPARIN SODIUM 40 MG/0.4 ML DISP.SYRIN SQ SCH (09:46)
[2022-06-05] MEDS: REMEDY ESSENTIAL ZINC PASTE 113 GM TP SCH ×2 (09:46→21:00)
[2022-06-05] MEDS: NEOMY/BACITRAC/POLYMI OINT 28.35 GM TUBE TOP SCH (09:46)
[2022-06-05] MEDS: LIDOCAINE 5% PATCH TD SCH (09:49)
[2022-06-05] MEDS: HYDROCODONE/APAP 10-325 MG TABLET GT PRN ×3 (09:51→18:24)
[2022-06-05 20:38] VITALS: TEMP 98.8
[2022-06-05] MEDS: ATORVASTATIN 20 MG TABLET GT SCH (21:00)
[2022-06-05] MEDS: hydrOXYzine HCL 25 MG TABLET GT SCH (21:00)
[2022-06-05] MEDS: MELATONIN 3 MG TABLET GT SCH (21:00)
[2022-06-05] MEDS: HYDROGEN PEROXIDE 3% 118 ML BOTTLE TP SCH (21:39)
[2022-06-05] MEDS: LORAZEPAM 1 MG TABLET GT PRN (22:00)
[2022-06-06] MEDS: JEVITY 1.2 1000 ML LIQUID GT PRN
[2022-06-06] MEDS: IPRATROPIUM BROMIDE 0.5 MG/2.5 ML NEBU NEB SCH ×4 (03:01→23:05)
[2022-06-06] MEDS: RILUZOLE 50 MG TAB GT SCH ×2 (05:17→17:53)
[2022-06-06] MEDS: OMEPRAZOLE 20 MG CAPSULE.DR GT SCH (05:17)
[2022-06-06] MEDS: GABAPENTIN 400 MG CAPSULE GT SCH ×3 (05:17→21:56)
[2022-06-06 07:41] VITALS: TEMP 98.8
[2022-06-06] MEDS: OLOPATADINE 0.1% OPHT DROP 5 ML BOTTLE EACHEYE SCH ×2 (09:07→17:52)
[2022-06-06] MEDS: POLYVINYL ALCOHOL OPHT DROPS 15 ML BOTTLE EACHEYE SCH ×4 (09:07→21:56)
[2022-06-06] MEDS: LORATADINE 10 MG TABLET GT SCH (09:09)
[2022-06-06] MEDS: DOCUSATE SODIUM 100 MG/10 ML LIQUID UDC GT SCH ×2 (09:10→21:56)
[2022-06-06] MEDS: BACLOFEN 20 MG TABLET GT SCH ×3 (09:11→17:52)
[2022-06-06] MEDS: FLUOXETINE HCL 20 MG CAPSULE GT SCH (09:11)
[2022-06-06] MEDS: CHLORHEXIDINE GLUCONATE 15 ML MOUTHWASH MM SCH ×2 (09:12→17:53)
[2022-06-06] MEDS: FLUTICASONE PROP NASAL SPRAY 16 GM BOTTLE NS SCH (09:13)
[2022-06-06] MEDS: ENOXAPARIN SODIUM 40 MG/0.4 ML DISP.SYRIN SQ SCH (09:15)
[2022-06-06] MEDS: REMEDY ESSENTIAL ZINC PASTE 113 GM TP SCH ×2 (09:16→21:56)
[2022-06-06] MEDS: NEOMY/BACITRAC/POLYMI OINT 28.35 GM TUBE TOP SCH (09:16)
[2022-06-06] MEDS: HYDROGEN PEROXIDE 3% 118 ML BOTTLE TP SCH ×2 (09:23→23:06)
[2022-06-06] MEDS: LIDOCAINE 5% PATCH TD SCH (09:26)
[2022-06-06] MEDS: HYDROCODONE/APAP 10-325 MG TABLET GT PRN ×2 (09:52→19:12)
[2022-06-06 19:58] VITALS: TEMP 98.6
[2022-06-06 20:02] VITALS: TEMP 98
[2022-06-06] MEDS: hydrOXYzine HCL 25 MG TABLET GT SCH (21:55)
[2022-06-06] MEDS: MELATONIN 3 MG TABLET GT SCH (21:56)
[2022-06-06] MEDS: ATORVASTATIN 20 MG TABLET GT SCH (21:56)
[2022-06-06] MEDS: LORAZEPAM 1 MG TABLET GT PRN (21:57)
[2022-06-07] MEDS: IPRATROPIUM BROMIDE 0.5 MG/2.5 ML NEBU NEB SCH ×4 (01:30→19:43)
[2022-06-07] MEDS: GABAPENTIN 400 MG CAPSULE GT SCH ×3 (06:12→20:13)
[2022-06-07] MEDS: OMEPRAZOLE 20 MG CAPSULE.DR GT SCH (06:12)
[2022-06-07] MEDS: RILUZOLE 50 MG TAB GT SCH ×2 (06:12→18:15)
[2022-06-07 08:00] VITALS: TEMP 98.3
[2022-06-07] MEDS: POLYVINYL ALCOHOL OPHT DROPS 15 ML BOTTLE EACHEYE SCH ×4 (09:01→20:13)
[2022-06-07] MEDS: OLOPATADINE 0.1% OPHT DROP 5 ML BOTTLE EACHEYE SCH ×2 (09:01→17:00)
[2022-06-07] MEDS: LORATADINE 10 MG TABLET GT SCH (09:02)
[2022-06-07] MEDS: DOCUSATE SODIUM 100 MG/10 ML LIQUID UDC GT SCH ×2 (09:05→20:13)
[2022-06-07] MEDS: FLUOXETINE HCL 20 MG CAPSULE GT SCH (09:06)
[2022-06-07] MEDS: BACLOFEN 20 MG TABLET GT SCH ×3 (09:06→17:00)
[2022-06-07] MEDS: FLUTICASONE PROP NASAL SPRAY 16 GM BOTTLE NS SCH (09:07)
[2022-06-07] MEDS: CHLORHEXIDINE GLUCONATE 15 ML MOUTHWASH MM SCH ×2 (09:07→17:00)
[2022-06-07] MEDS: REMEDY ESSENTIAL ZINC PASTE 113 GM TP SCH ×2 (09:08→20:14)
[2022-06-07] MEDS: HYDROGEN PEROXIDE 3% 118 ML BOTTLE TP SCH ×2 (09:08→19:43)
[2022-06-07] MEDS: LIDOCAINE 5% PATCH TD SCH (09:11)
[2022-06-07] MEDS: ENOXAPARIN SODIUM 40 MG/0.4 ML DISP.SYRIN SQ SCH (09:15)
[2022-06-07] MEDS: HYDROCODONE/APAP 10-325 MG TABLET GT PRN ×2 (16:22→18:14)
[2022-06-07] MEDS: ATORVASTATIN 20 MG TABLET GT SCH (20:13)
[2022-06-07] MEDS: hydrOXYzine HCL 25 MG TABLET GT SCH (20:13)
[2022-06-07] MEDS: MELATONIN 3 MG TABLET GT SCH (20:13)
[2022-06-07] MEDS: LORAZEPAM 1 MG TABLET GT PRN (20:18)
[2022-06-07 20:24] VITALS: TEMP 98.6
[2022-06-08] MEDS: IPRATROPIUM BROMIDE 0.5 MG/2.5 ML NEBU NEB SCH ×4 (00:50→19:11)
[2022-06-08] MEDS: GABAPENTIN 400 MG CAPSULE GT SCH ×3 (05:25→20:31)
[2022-06-08] MEDS: OMEPRAZOLE 20 MG CAPSULE.DR GT SCH (05:25)
[2022-06-08] MEDS: RILUZOLE 50 MG TAB GT SCH ×2 (05:25→17:33)
[2022-06-08] MEDS: HYDROGEN PEROXIDE 3% 118 ML BOTTLE TP SCH ×2 (07:40→19:11)
[2022-06-08] MEDS: LIDOCAINE 5% PATCH TD SCH (08:49)
[2022-06-08] MEDS: HYDROCODONE/APAP 10-325 MG TABLET GT PRN ×3 (09:35→18:16)
[2022-06-08] MEDS: LORATADINE 10 MG TABLET GT SCH (09:37)
[2022-06-08] MEDS: OLOPATADINE 0.1% OPHT DROP 5 ML BOTTLE EACHEYE SCH ×2 (09:37→17:32)
[2022-06-08] MEDS: POLYVINYL ALCOHOL OPHT DROPS 15 ML BOTTLE EACHEYE SCH ×4 (09:37→20:31)
[2022-06-08] MEDS: DOCUSATE SODIUM 100 MG/10 ML LIQUID UDC GT SCH ×2 (09:38→20:31)
[2022-06-08] MEDS: CHLORHEXIDINE GLUCONATE 15 ML MOUTHWASH MM SCH ×2 (09:38→17:33)
[2022-06-08] MEDS: FLUTICASONE PROP NASAL SPRAY 16 GM BOTTLE NS SCH (09:38)
[2022-06-08] MEDS: BACLOFEN 20 MG TABLET GT SCH ×3 (09:38→17:32)
[2022-06-08] MEDS: FLUOXETINE HCL 20 MG CAPSULE GT SCH (09:38)
[2022-06-08] MEDS: REMEDY ESSENTIAL ZINC PASTE 113 GM TP SCH ×2 (09:39→20:31)
[2022-06-08] MEDS: ENOXAPARIN SODIUM 40 MG/0.4 ML DISP.SYRIN SQ SCH (09:39)
[2022-06-08 11:11] VITALS: TEMP 98
[2022-06-08 20:13] VITALS: TEMP 98.6
[2022-06-08] MEDS: MELATONIN 3 MG TABLET GT SCH (20:31)
[2022-06-08] MEDS: hydrOXYzine HCL 25 MG TABLET GT SCH (20:31)
[2022-06-08] MEDS: ATORVASTATIN 20 MG TABLET GT SCH (20:31)
[2022-06-09] MEDS: IPRATROPIUM BROMIDE 0.5 MG/2.5 ML NEBU NEB SCH ×4 (00:51→19:05)
[2022-06-09] MEDS: GABAPENTIN 400 MG CAPSULE GT SCH ×3 (05:11→21:54)
[2022-06-09] MEDS: RILUZOLE 50 MG TAB GT SCH ×2 (05:11→17:33)
[2022-06-09] MEDS: OMEPRAZOLE 20 MG CAPSULE.DR GT SCH (05:11)
[2022-06-09 08:33] VITALS: TEMP 98.4
[2022-06-09] MEDS: HYDROGEN PEROXIDE 3% 118 ML BOTTLE TP SCH ×2 (08:39→19:06)
[2022-06-09] MEDS: LIDOCAINE 5% PATCH TD SCH (08:50)
[2022-06-09] MEDS: POLYVINYL ALCOHOL OPHT DROPS 15 ML BOTTLE EACHEYE SCH ×4 (09:22→21:53)
[2022-06-09] MEDS: OLOPATADINE 0.1% OPHT DROP 5 ML BOTTLE EACHEYE SCH ×2 (09:22→17:33)
[2022-06-09] MEDS: LORATADINE 10 MG TABLET GT SCH (09:23)
[2022-06-09] MEDS: FLUTICASONE PROP NASAL SPRAY 16 GM BOTTLE NS SCH (09:24)
[2022-06-09] MEDS: DOCUSATE SODIUM 100 MG/10 ML LIQUID UDC GT SCH ×2 (09:24→21:54)
[2022-06-09] MEDS: CHLORHEXIDINE GLUCONATE 15 ML MOUTHWASH MM SCH ×2 (09:24→17:33)
[2022-06-09] MEDS: BACLOFEN 20 MG TABLET GT SCH ×3 (09:24→17:33)
[2022-06-09] MEDS: FLUOXETINE HCL 20 MG CAPSULE GT SCH (09:24)
[2022-06-09] MEDS: ENOXAPARIN SODIUM 40 MG/0.4 ML DISP.SYRIN SQ SCH (09:29)
[2022-06-09] MEDS: REMEDY ESSENTIAL ZINC PASTE 113 GM TP SCH ×2 (09:29→21:54)
[2022-06-09] MEDS: HYDROCODONE/APAP 10-325 MG TABLET GT PRN ×3 (09:30→17:32)
[2022-06-09] MEDS: LORAZEPAM 1 MG TABLET GT PRN (21:00)
[2022-06-09] MEDS: ATORVASTATIN 20 MG TABLET GT SCH (21:54)
[2022-06-09] MEDS: hydrOXYzine HCL 25 MG TABLET GT SCH (21:54)
[2022-06-09] MEDS: MELATONIN 3 MG TABLET GT SCH (21:54)
[2022-06-09 22:06] VITALS: TEMP 98.2
[2022-06-09] MEDS: JEVITY 1.2 1000 ML LIQUID GT PRN (22:09)
[2022-06-10] MEDS: IPRATROPIUM BROMIDE 0.5 MG/2.5 ML NEBU NEB SCH ×4 (00:56→21:22)
[2022-06-10] MEDS: MAGNESIUM HYDROXIDE 30 ML LIQUID UDC GT PRN (05:00)
[2022-06-10] MEDS: RILUZOLE 50 MG TAB GT SCH ×2 (05:22→18:01)
[2022-06-10] MEDS: GABAPENTIN 400 MG CAPSULE GT SCH ×3 (05:22→21:17)
[2022-06-10] MEDS: OMEPRAZOLE 20 MG CAPSULE.DR GT SCH (05:22)
[2022-06-10 07:44] VITALS: TEMP 97.6
[2022-06-10] MEDS: REMEDY ESSENTIAL ZINC PASTE 113 GM TP SCH ×2 (09:00→21:17)
[2022-06-10] MEDS: HYDROGEN PEROXIDE 3% 118 ML BOTTLE TP SCH ×2 (09:00→21:23)
[2022-06-10] MEDS: POLYVINYL ALCOHOL OPHT DROPS 15 ML BOTTLE EACHEYE SCH ×4 (09:43→21:17)
[2022-06-10] MEDS: OLOPATADINE 0.1% OPHT DROP 5 ML BOTTLE EACHEYE SCH ×2 (09:44→17:59)
[2022-06-10] MEDS: LORATADINE 10 MG TABLET GT SCH (09:46)
[2022-06-10] MEDS: DOCUSATE SODIUM 100 MG/10 ML LIQUID UDC GT SCH ×2 (09:48→21:17)
[2022-06-10] MEDS: BACLOFEN 20 MG TABLET GT SCH ×3 (09:49→17:00)
[2022-06-10] MEDS: FLUTICASONE PROP NASAL SPRAY 16 GM BOTTLE NS SCH (09:50)
[2022-06-10] MEDS: FLUOXETINE HCL 20 MG CAPSULE GT SCH (09:50)
[2022-06-10] MEDS: CHLORHEXIDINE GLUCONATE 15 ML MOUTHWASH MM SCH ×2 (09:50→17:00)
[2022-06-10] MEDS: LIDOCAINE 5% PATCH TD SCH (09:51)
[2022-06-10] MEDS: ENOXAPARIN SODIUM 40 MG/0.4 ML DISP.SYRIN SQ SCH (09:53)
[2022-06-10] MEDS: HYDROCODONE/APAP 10-325 MG TABLET GT PRN ×2 (09:54→18:07)
[2022-06-10 20:00] VITALS: TEMP 98.2
[2022-06-10] MEDS: LORAZEPAM 1 MG TABLET GT PRN (21:00)
[2022-06-10] MEDS: MELATONIN 3 MG TABLET GT SCH (21:17)
[2022-06-10] MEDS: ATORVASTATIN 20 MG TABLET GT SCH (21:17)
[2022-06-10] MEDS: hydrOXYzine HCL 25 MG TABLET GT SCH (21:17)
[2022-06-11] MEDS: IPRATROPIUM BROMIDE 0.5 MG/2.5 ML NEBU NEB SCH ×4 (02:57→19:11)
[2022-06-11] MEDS: OMEPRAZOLE 20 MG CAPSULE.DR GT SCH (05:30)
[2022-06-11] MEDS: GABAPENTIN 400 MG CAPSULE GT SCH ×3 (05:30→21:00)
[2022-06-11] MEDS: RILUZOLE 50 MG TAB GT SCH ×2 (05:30→18:13)
[2022-06-11] MEDS: HYDROGEN PEROXIDE 3% 118 ML BOTTLE TP SCH ×2 (07:40→19:11)
[2022-06-11 07:56] VITALS: TEMP 97.6
[2022-06-11] MEDS: REMEDY ESSENTIAL ZINC PASTE 113 GM TP SCH ×2 (09:00→21:00)
[2022-06-11] MEDS: DOCUSATE SODIUM 100 MG/10 ML LIQUID UDC GT SCH ×2 (09:26→21:00)
[2022-06-11] MEDS: FLUOXETINE HCL 20 MG CAPSULE GT SCH (09:26)
[2022-06-11] MEDS: POLYVINYL ALCOHOL OPHT DROPS 15 ML BOTTLE EACHEYE SCH ×4 (09:26→21:00)
[2022-06-11] MEDS: LORATADINE 10 MG TABLET GT SCH (09:26)
[2022-06-11] MEDS: HYDROCODONE/APAP 10-325 MG TABLET GT PRN ×2 (09:26→18:13)
[2022-06-11] MEDS: BACLOFEN 20 MG TABLET GT SCH ×3 (09:26→17:00)
[2022-06-11] MEDS: OLOPATADINE 0.1% OPHT DROP 5 ML BOTTLE EACHEYE SCH ×2 (09:26→17:00)
[2022-06-11] MEDS: FLUTICASONE PROP NASAL SPRAY 16 GM BOTTLE NS SCH (09:27)
[2022-06-11] MEDS: CHLORHEXIDINE GLUCONATE 15 ML MOUTHWASH MM SCH ×2 (09:27→17:00)
[2022-06-11] MEDS: LIDOCAINE 5% PATCH TD SCH (09:27)
[2022-06-11] MEDS: ENOXAPARIN SODIUM 40 MG/0.4 ML DISP.SYRIN SQ SCH (09:46)
[2022-06-11 20:00] VITALS: TEMP 98.3
[2022-06-11] MEDS: ATORVASTATIN 20 MG TABLET GT SCH (21:00)
[2022-06-11] MEDS: hydrOXYzine HCL 25 MG TABLET GT SCH (21:00)
[2022-06-11] MEDS: MELATONIN 3 MG TABLET GT SCH (21:00)
[2022-06-11] MEDS: LORAZEPAM 1 MG TABLET GT PRN (22:07)
[2022-06-12] MEDS: IPRATROPIUM BROMIDE 0.5 MG/2.5 ML NEBU NEB SCH ×4 (01:32→19:40)
[2022-06-12] MEDS: RILUZOLE 50 MG TAB GT SCH ×2 (05:07→17:22)
[2022-06-12] MEDS: GABAPENTIN 400 MG CAPSULE GT SCH ×3 (05:07→21:48)
[2022-06-12] MEDS: OMEPRAZOLE 20 MG CAPSULE.DR GT SCH (05:07)
[2022-06-12 07:45] VITALS: TEMP 98.3
[2022-06-12] MEDS: HYDROCODONE/APAP 10-325 MG TABLET GT PRN ×2 (09:38→17:25)
[2022-06-12] MEDS: POLYVINYL ALCOHOL OPHT DROPS 15 ML BOTTLE EACHEYE SCH ×4 (09:38→21:46)
[2022-06-12] MEDS: OLOPATADINE 0.1% OPHT DROP 5 ML BOTTLE EACHEYE SCH ×2 (09:38→17:21)
[2022-06-12] MEDS: CHLORHEXIDINE GLUCONATE 15 ML MOUTHWASH MM SCH ×2 (09:39→17:21)
[2022-06-12] MEDS: HYDROGEN PEROXIDE 3% 118 ML BOTTLE TP SCH ×2 (09:39→21:00)
[2022-06-12] MEDS: FLUOXETINE HCL 20 MG CAPSULE GT SCH (09:39)
[2022-06-12] MEDS: BACLOFEN 20 MG TABLET GT SCH ×3 (09:39→17:21)
[2022-06-12] MEDS: LORATADINE 10 MG TABLET GT SCH (09:40)
[2022-06-12] MEDS: FLUTICASONE PROP NASAL SPRAY 16 GM BOTTLE NS SCH (09:40)
[2022-06-12] MEDS: DOCUSATE SODIUM 100 MG/10 ML LIQUID UDC GT SCH ×2 (09:40→21:46)
[2022-06-12] MEDS: ENOXAPARIN SODIUM 40 MG/0.4 ML DISP.SYRIN SQ SCH (09:42)
[2022-06-12] MEDS: LIDOCAINE 5% PATCH TD SCH (09:43)
[2022-06-12] MEDS: REMEDY ESSENTIAL ZINC PASTE 113 GM TP SCH ×2 (09:43→21:48)
[2022-06-12] MEDS: JEVITY 1.2 1000 ML LIQUID GT PRN (18:13)
[2022-06-12 20:30] VITALS: TEMP 98.5
[2022-06-12] MEDS: hydrOXYzine HCL 25 MG TABLET GT SCH (21:47)
[2022-06-12] MEDS: MELATONIN 3 MG TABLET GT SCH (21:47)
[2022-06-12] MEDS: ATORVASTATIN 20 MG TABLET GT SCH (21:47)
[2022-06-12] MEDS: LORAZEPAM 1 MG TABLET GT PRN (21:48)
[2022-06-13] MEDS: IPRATROPIUM BROMIDE 0.5 MG/2.5 ML NEBU NEB SCH ×4 (01:59→19:07)
[2022-06-13] MEDS: RILUZOLE 50 MG TAB GT SCH ×2 (05:58→17:32)
[2022-06-13] MEDS: GABAPENTIN 400 MG CAPSULE GT SCH ×3 (05:58→21:11)
[2022-06-13] MEDS: OMEPRAZOLE 20 MG CAPSULE.DR GT SCH (05:58)
[2022-06-13] MEDS: HYDROGEN PEROXIDE 3% 118 ML BOTTLE TP SCH ×2 (07:37→21:10)
[2022-06-13 07:48] VITALS: TEMP 97.8
[2022-06-13] MEDS: POLYVINYL ALCOHOL OPHT DROPS 15 ML BOTTLE EACHEYE SCH ×4 (09:39→21:11)
[2022-06-13] MEDS: DOCUSATE SODIUM 100 MG/10 ML LIQUID UDC GT SCH ×2 (09:39→21:11)
[2022-06-13] MEDS: LORATADINE 10 MG TABLET GT SCH (09:39)
[2022-06-13] MEDS: OLOPATADINE 0.1% OPHT DROP 5 ML BOTTLE EACHEYE SCH ×2 (09:39→17:32)
[2022-06-13] MEDS: BACLOFEN 20 MG TABLET GT SCH ×3 (09:40→17:32)
[2022-06-13] MEDS: CHLORHEXIDINE GLUCONATE 15 ML MOUTHWASH MM SCH ×2 (09:40→17:32)
[2022-06-13] MEDS: FLUTICASONE PROP NASAL SPRAY 16 GM BOTTLE NS SCH (09:40)
[2022-06-13] MEDS: FLUOXETINE HCL 20 MG CAPSULE GT SCH (09:40)
[2022-06-13] MEDS: REMEDY ESSENTIAL ZINC PASTE 113 GM TP SCH ×2 (09:41→21:11)
[2022-06-13] MEDS: LIDOCAINE 5% PATCH TD SCH (09:41)
[2022-06-13] MEDS: ENOXAPARIN SODIUM 40 MG/0.4 ML DISP.SYRIN SQ SCH (09:42)
[2022-06-13] MEDS: HYDROCODONE/APAP 10-325 MG TABLET GT PRN ×2 (09:47→19:37)
[2022-06-13 20:38] VITALS: TEMP 98
[2022-06-13] MEDS: LORAZEPAM 1 MG TABLET GT PRN (21:00)
[2022-06-13] MEDS: ATORVASTATIN 20 MG TABLET GT SCH (21:11)
[2022-06-13] MEDS: MELATONIN 3 MG TABLET GT SCH (21:11)
[2022-06-13] MEDS: hydrOXYzine HCL 25 MG TABLET GT SCH (21:11)
[2022-06-14] MEDS: IPRATROPIUM BROMIDE 0.5 MG/2.5 ML NEBU NEB SCH ×4 (02:03→19:40)
[2022-06-14] MEDS: RILUZOLE 50 MG TAB GT SCH ×2 (05:58→17:30)
[2022-06-14] MEDS: GABAPENTIN 400 MG CAPSULE GT SCH ×3 (05:58→20:55)
[2022-06-14] MEDS: OMEPRAZOLE 20 MG CAPSULE.DR GT SCH (05:58)
[2022-06-14] MEDS: HYDROCODONE/APAP 10-325 MG TABLET GT PRN ×3 (05:59→17:57)
[2022-06-14 08:00] VITALS: TEMP 98.2
[2022-06-14] MEDS: HYDROGEN PEROXIDE 3% 118 ML BOTTLE TP SCH ×2 (09:25→21:44)
[2022-06-14] MEDS: POLYVINYL ALCOHOL OPHT DROPS 15 ML BOTTLE EACHEYE SCH ×4 (09:43→20:54)
[2022-06-14] MEDS: OLOPATADINE 0.1% OPHT DROP 5 ML BOTTLE EACHEYE SCH ×2 (09:44→17:24)
[2022-06-14] MEDS: DOCUSATE SODIUM 100 MG/10 ML LIQUID UDC GT SCH ×2 (09:45→20:54)
[2022-06-14] MEDS: BACLOFEN 20 MG TABLET GT SCH ×3 (09:46→17:24)
[2022-06-14] MEDS: FLUOXETINE HCL 20 MG CAPSULE GT SCH (09:46)
[2022-06-14] MEDS: CHLORHEXIDINE GLUCONATE 15 ML MOUTHWASH MM SCH ×2 (09:47→17:24)
[2022-06-14] MEDS: REMEDY ESSENTIAL ZINC PASTE 113 GM TP SCH ×2 (09:47→20:55)
[2022-06-14] MEDS: FLUTICASONE PROP NASAL SPRAY 16 GM BOTTLE NS SCH (09:47)
[2022-06-14] MEDS: LORATADINE 10 MG TABLET GT SCH (09:56)
[2022-06-14] MEDS: LIDOCAINE 5% PATCH TD SCH (09:56)
[2022-06-14] MEDS: ENOXAPARIN SODIUM 40 MG/0.4 ML DISP.SYRIN SQ SCH (09:57)
[2022-06-14 20:31] VITALS: TEMP 98.8
[2022-06-14] MEDS: hydrOXYzine HCL 25 MG TABLET GT SCH (20:54)
[2022-06-14] MEDS: ATORVASTATIN 20 MG TABLET GT SCH (20:54)
[2022-06-14] MEDS: MELATONIN 3 MG TABLET GT SCH (20:55)
[2022-06-14] MEDS: LORAZEPAM 1 MG TABLET GT PRN (20:56)
[2022-06-15] MEDS: IPRATROPIUM BROMIDE 0.5 MG/2.5 ML NEBU NEB SCH ×4 (02:02→19:20)
[2022-06-15] MEDS: GABAPENTIN 400 MG CAPSULE GT SCH ×3 (06:51→21:00)
[2022-06-15] MEDS: RILUZOLE 50 MG TAB GT SCH ×2 (06:51→17:30)
[2022-06-15] MEDS: OMEPRAZOLE 20 MG CAPSULE.DR GT SCH (06:51)
[2022-06-15 07:23] VITALS: TEMP 97.6
[2022-06-15] MEDS: DOCUSATE SODIUM 100 MG/10 ML LIQUID UDC GT SCH ×2 (09:06→21:00)
[2022-06-15] MEDS: LORATADINE 10 MG TABLET GT SCH (09:06)
[2022-06-15] MEDS: POLYVINYL ALCOHOL OPHT DROPS 15 ML BOTTLE EACHEYE SCH ×4 (09:06→21:00)
[2022-06-15] MEDS: OLOPATADINE 0.1% OPHT DROP 5 ML BOTTLE EACHEYE SCH ×2 (09:06→17:30)
[2022-06-15] MEDS: CHLORHEXIDINE GLUCONATE 15 ML MOUTHWASH MM SCH ×2 (09:07→17:31)
[2022-06-15] MEDS: FLUTICASONE PROP NASAL SPRAY 16 GM BOTTLE NS SCH (09:07)
[2022-06-15] MEDS: FLUOXETINE HCL 20 MG CAPSULE GT SCH (09:07)
[2022-06-15] MEDS: HYDROCODONE/APAP 10-325 MG TABLET GT PRN ×2 (09:07→17:29)
[2022-06-15] MEDS: BACLOFEN 20 MG TABLET GT SCH ×3 (09:07→17:31)
[2022-06-15] MEDS: ENOXAPARIN SODIUM 40 MG/0.4 ML DISP.SYRIN SQ SCH (09:08)
[2022-06-15] MEDS: REMEDY ESSENTIAL ZINC PASTE 113 GM TP SCH ×2 (09:08→21:00)
[2022-06-15] MEDS: LIDOCAINE 5% PATCH TD SCH (09:08)
[2022-06-15] MEDS: HYDROGEN PEROXIDE 3% 118 ML BOTTLE TP SCH ×2 (09:50→21:20)
[2022-06-15] MEDS: JEVITY 1.2 1000 ML LIQUID GT PRN (16:34)
[2022-06-15 20:00] VITALS: TEMP 98
[2022-06-15] MEDS: hydrOXYzine HCL 25 MG TABLET GT SCH (21:00)
[2022-06-15] MEDS: ATORVASTATIN 20 MG TABLET GT SCH (21:00)
[2022-06-15] MEDS: MELATONIN 3 MG TABLET GT SCH (21:00)
[2022-06-15] MEDS: LORAZEPAM 1 MG TABLET GT PRN (23:26)
[2022-06-16] MEDS: IPRATROPIUM BROMIDE 0.5 MG/2.5 ML NEBU NEB SCH ×4 (01:41→19:06)
[2022-06-16] MEDS: GABAPENTIN 400 MG CAPSULE GT SCH ×3 (06:37→21:36)
[2022-06-16] MEDS: RILUZOLE 50 MG TAB GT SCH ×2 (06:37→18:00)
[2022-06-16] MEDS: OMEPRAZOLE 20 MG CAPSULE.DR GT SCH (06:37)
[2022-06-16 08:00] VITALS: TEMP 98.6
[2022-06-16] MEDS: HYDROGEN PEROXIDE 3% 118 ML BOTTLE TP SCH ×2 (08:38→19:06)
[2022-06-16] MEDS: LIDOCAINE 5% PATCH TD SCH (09:00)
[2022-06-16] MEDS: CHLORHEXIDINE GLUCONATE 15 ML MOUTHWASH MM SCH ×2 (09:00→17:00)
[2022-06-16] MEDS: FLUTICASONE PROP NASAL SPRAY 16 GM BOTTLE NS SCH (09:00)
[2022-06-16] MEDS: LORATADINE 10 MG TABLET GT SCH (09:00)
[2022-06-16] MEDS: DOCUSATE SODIUM 100 MG/10 ML LIQUID UDC GT SCH ×2 (09:00→21:36)
[2022-06-16] MEDS: POLYVINYL ALCOHOL OPHT DROPS 15 ML BOTTLE EACHEYE SCH ×4 (09:00→21:35)
[2022-06-16] MEDS: BACLOFEN 20 MG TABLET GT SCH ×3 (09:00→18:00)
[2022-06-16] MEDS: ENOXAPARIN SODIUM 40 MG/0.4 ML DISP.SYRIN SQ SCH (09:00)
[2022-06-16] MEDS: OLOPATADINE 0.1% OPHT DROP 5 ML BOTTLE EACHEYE SCH ×2 (09:00→17:50)
[2022-06-16] MEDS: FLUOXETINE HCL 20 MG CAPSULE GT SCH (09:00)
[2022-06-16] MEDS: REMEDY ESSENTIAL ZINC PASTE 113 GM TP SCH ×2 (09:00→21:36)
[2022-06-16] MEDS: HYDROCODONE/APAP 10-325 MG TABLET GT PRN ×2 (12:00→14:53)
[2022-06-16 20:00] VITALS: TEMP 97.4
[2022-06-16] MEDS: hydrOXYzine HCL 25 MG TABLET GT SCH (21:35)
[2022-06-16] MEDS: LORAZEPAM 1 MG TABLET GT PRN (21:35)
[2022-06-16] MEDS: MELATONIN 3 MG TABLET GT SCH (21:36)
[2022-06-16] MEDS: ATORVASTATIN 20 MG TABLET GT SCH (21:36)
[2022-06-17] MEDS: IPRATROPIUM BROMIDE 0.5 MG/2.5 ML NEBU NEB SCH ×4 (01:36→20:00)
[2022-06-17] MEDS: RILUZOLE 50 MG TAB GT SCH ×2 (06:00→17:59)
[2022-06-17] MEDS: OMEPRAZOLE 20 MG CAPSULE.DR GT SCH (06:00)
[2022-06-17] MEDS: GABAPENTIN 400 MG CAPSULE GT SCH ×3 (06:00→21:00)
[2022-06-17 06:41] LABS: BASOPHILS % (AUTO) 0.5 % (0.0-2.0); EOSINOPHILS # (AUTO) 0.2 K/uL (0.0-0.7); EOSINOPHILS % (AUTO) 3.5 % (0.0-7.0); HEMATOCRIT 36.9 % (31.2-41.9); HEMOGLOBIN 12.4 g/dL (10.9-14.3); LYMPHOCYTES # (AUTO) 1.5 K/uL (0.8-4.8); LYMPHOCYTES % (AUTO) 24.5 % (20.5-51.5); MEAN CORPUSCULAR HEMOGLOBIN 31.2 uug (24.7-32.8); MEAN CORPUSCULAR HGB CONC 34 g/dL (32.3-35.6); MEAN CORPUSCULAR VOLUME 92.9 fL (75.5-95.3); MONOCYTES # (AUTO) 0.4 K/uL (0.1-1.30); MONOCYTES % (AUTO) 6.9 % (0.0-11.0); NEUTROPHILS # (AUTO) 3.9 K/uL (1.8-8.9); NEUTROPHILS % (AUTO) 64.6 % (38.5-71.5); PLATELET COUNT (AUTO) 197 K/uL (179-408); RED BLOOD CELL COUNT(AUTO) 3.97 MIL/uL (3.63-4.92); RED CELL DISTRIBUTION WIDTH 13.8 % (12.3-17.7)
[2022-06-17] MEDS: LORAZEPAM 1 MG TABLET GT PRN ×2 (07:03→22:01)
[2022-06-17 07:14] LABS: DIFFERENTIAL COMMENT 1
[2022-06-17 07:21] LABS: ALANINE AMINOTRANSFERASE 31 U/L (14-59); ALBUMIN 3.4 g/dL (3.4-5.0); ALKALINE PHOSPHATASE 100 U/L (50-136); ASPARTATE AMINOTRANSFERASE 18 U/L (15-37); BILIRUBIN,TOTAL 0.5 mg/dL (0.2-1.0); CALCIUM 8.9 mg/dL (8.5-10.1); CARBON DIOXIDE 35 mmol/L (21-32); CHLORIDE 99 mmol/L (98-107); CREATININE 0.3 mg/dL (0.6-1.3); GLUCOSE 118 mg/dL (74-106); MAGNESIUM 2.2 mg/dL (1.8-2.4); POTASSIUM 4.2 mmol/L (3.5-5.1); SODIUM SERUM 141 mmol/L (136-145); TOTAL PROTEIN, SERUM 7.5 g/dL (6.4-8.2); UREA NITROGEN, BLOOD 12 mg/dL (7-18)
[2022-06-17] MEDS: HYDROGEN PEROXIDE 3% 118 ML BOTTLE TP SCH ×2 (08:06→20:00)
[2022-06-17] MEDS: LORATADINE 10 MG TABLET GT SCH (09:40)
[2022-06-17] MEDS: OLOPATADINE 0.1% OPHT DROP 5 ML BOTTLE EACHEYE SCH ×2 (09:40→17:56)
[2022-06-17] MEDS: FLUTICASONE PROP NASAL SPRAY 16 GM BOTTLE NS SCH (09:40)
[2022-06-17] MEDS: POLYVINYL ALCOHOL OPHT DROPS 15 ML BOTTLE EACHEYE SCH ×4 (09:40→21:00)
[2022-06-17] MEDS: DOCUSATE SODIUM 100 MG/10 ML LIQUID UDC GT SCH ×2 (09:40→21:00)
[2022-06-17] MEDS: LIDOCAINE 5% PATCH TD SCH (09:40)
[2022-06-17] MEDS: BACLOFEN 20 MG TABLET GT SCH ×3 (09:40→17:57)
[2022-06-17] MEDS: FLUOXETINE HCL 20 MG CAPSULE GT SCH (09:40)
[2022-06-17] MEDS: CHLORHEXIDINE GLUCONATE 15 ML MOUTHWASH MM SCH ×2 (09:40→17:57)
[2022-06-17] MEDS: REMEDY ESSENTIAL ZINC PASTE 113 GM TP SCH ×2 (09:41→21:00)
[2022-06-17] MEDS: ENOXAPARIN SODIUM 40 MG/0.4 ML DISP.SYRIN SQ SCH (09:52)
[2022-06-17] MEDS: HYDROCODONE/APAP 10-325 MG TABLET GT PRN ×3 (10:00→18:00)
[2022-06-17 20:00] VITALS: TEMP 97.8
[2022-06-17] MEDS: ATORVASTATIN 20 MG TABLET GT SCH (21:00)
[2022-06-17] MEDS: MELATONIN 3 MG TABLET GT SCH (21:00)
[2022-06-17] MEDS: hydrOXYzine HCL 25 MG TABLET GT SCH (21:00)
[2022-06-18] MEDS: IPRATROPIUM BROMIDE 0.5 MG/2.5 ML NEBU NEB SCH ×4 (02:08→23:33)
[2022-06-18] MEDS: JEVITY 1.2 1000 ML LIQUID GT PRN (04:47)
[2022-06-18] MEDS: GABAPENTIN 400 MG CAPSULE GT SCH ×3 (05:08→21:35)
[2022-06-18] MEDS: OMEPRAZOLE 20 MG CAPSULE.DR GT SCH (05:08)
[2022-06-18] MEDS: RILUZOLE 50 MG TAB GT SCH ×2 (05:08→17:33)
[2022-06-18 07:40] VITALS: TEMP 98.8
[2022-06-18] MEDS: OLOPATADINE 0.1% OPHT DROP 5 ML BOTTLE EACHEYE SCH ×2 (09:26→17:33)
[2022-06-18] MEDS: POLYVINYL ALCOHOL OPHT DROPS 15 ML BOTTLE EACHEYE SCH ×4 (09:26→21:35)
[2022-06-18] MEDS: LORATADINE 10 MG TABLET GT SCH (09:27)
[2022-06-18] MEDS: DOCUSATE SODIUM 100 MG/10 ML LIQUID UDC GT SCH ×2 (09:27→21:35)
[2022-06-18] MEDS: CHLORHEXIDINE GLUCONATE 15 ML MOUTHWASH MM SCH ×2 (09:28→17:33)
[2022-06-18] MEDS: FLUOXETINE HCL 20 MG CAPSULE GT SCH (09:28)
[2022-06-18] MEDS: BACLOFEN 20 MG TABLET GT SCH ×3 (09:28→17:33)
[2022-06-18] MEDS: FLUTICASONE PROP NASAL SPRAY 16 GM BOTTLE NS SCH (09:29)
[2022-06-18] MEDS: LIDOCAINE 5% PATCH TD SCH (09:30)
[2022-06-18] MEDS: HYDROGEN PEROXIDE 3% 118 ML BOTTLE TP SCH ×2 (09:30→23:34)
[2022-06-18] MEDS: REMEDY ESSENTIAL ZINC PASTE 113 GM TP SCH ×2 (09:30→21:35)
[2022-06-18] MEDS: ENOXAPARIN SODIUM 40 MG/0.4 ML DISP.SYRIN SQ SCH (09:32)
[2022-06-18] MEDS: HYDROCODONE/APAP 10-325 MG TABLET GT PRN (09:35)
[2022-06-18] MEDS: LORAZEPAM 1 MG TABLET GT PRN ×2 (11:27→21:35)
[2022-06-18 20:00] VITALS: TEMP 98.2
[2022-06-18] MEDS: ATORVASTATIN 20 MG TABLET GT SCH (21:35)
[2022-06-18] MEDS: MELATONIN 3 MG TABLET GT SCH (21:35)
[2022-06-18] MEDS: hydrOXYzine HCL 25 MG TABLET GT SCH (21:35)
[2022-06-19] MEDS: IPRATROPIUM BROMIDE 0.5 MG/2.5 ML NEBU NEB SCH ×4 (01:04→19:25)
[2022-06-19] MEDS: JEVITY 1.2 1000 ML LIQUID GT PRN (04:55)
[2022-06-19] MEDS: RILUZOLE 50 MG TAB GT SCH ×2 (05:25→18:05)
[2022-06-19] MEDS: GABAPENTIN 400 MG CAPSULE GT SCH ×3 (05:25→20:48)
[2022-06-19] MEDS: OMEPRAZOLE 20 MG CAPSULE.DR GT SCH (05:25)
[2022-06-19 08:00] VITALS: TEMP 97.2; TEMP 98
[2022-06-19] MEDS: HYDROGEN PEROXIDE 3% 118 ML BOTTLE TP SCH ×2 (09:00→21:06)
[2022-06-19] MEDS: POLYVINYL ALCOHOL OPHT DROPS 15 ML BOTTLE EACHEYE SCH ×4 (09:49→20:48)
[2022-06-19] MEDS: OLOPATADINE 0.1% OPHT DROP 5 ML BOTTLE EACHEYE SCH ×2 (09:50→17:00)
[2022-06-19] MEDS: LORATADINE 10 MG TABLET GT SCH (09:51)
[2022-06-19] MEDS: DOCUSATE SODIUM 100 MG/10 ML LIQUID UDC GT SCH ×2 (09:52→20:48)
[2022-06-19] MEDS: BACLOFEN 20 MG TABLET GT SCH ×3 (09:52→17:00)
[2022-06-19] MEDS: FLUOXETINE HCL 20 MG CAPSULE GT SCH (09:53)
[2022-06-19] MEDS: FLUTICASONE PROP NASAL SPRAY 16 GM BOTTLE NS SCH (09:54)
[2022-06-19] MEDS: CHLORHEXIDINE GLUCONATE 15 ML MOUTHWASH MM SCH ×2 (09:54→17:00)
[2022-06-19] MEDS: ENOXAPARIN SODIUM 40 MG/0.4 ML DISP.SYRIN SQ SCH (09:55)
[2022-06-19] MEDS: HYDROCODONE/APAP 10-325 MG TABLET GT PRN ×3 (09:56→18:37)
[2022-06-19] MEDS: REMEDY ESSENTIAL ZINC PASTE 113 GM TP SCH ×2 (09:56→20:48)
[2022-06-19] MEDS: LIDOCAINE 5% PATCH TD SCH (09:56)
[2022-06-19] MEDS: ATORVASTATIN 20 MG TABLET GT SCH (20:48)
[2022-06-19] MEDS: LORAZEPAM 1 MG TABLET GT PRN (20:48)
[2022-06-19] MEDS: MELATONIN 3 MG TABLET GT SCH (20:48)
[2022-06-19] MEDS: hydrOXYzine HCL 25 MG TABLET GT SCH (20:48)
[2022-06-19 20:52] VITALS: TEMP 98.2
[2022-06-20] MEDS: IPRATROPIUM BROMIDE 0.5 MG/2.5 ML NEBU NEB SCH ×4 (00:48→19:21)
[2022-06-20] MEDS: JEVITY 1.2 1000 ML LIQUID GT PRN (03:56)
[2022-06-20] MEDS: OMEPRAZOLE 20 MG CAPSULE.DR GT SCH (05:05)
[2022-06-20] MEDS: GABAPENTIN 400 MG CAPSULE GT SCH ×3 (05:05→21:00)
[2022-06-20] MEDS: RILUZOLE 50 MG TAB GT SCH ×2 (05:05→17:37)
[2022-06-20] MEDS: LORAZEPAM 1 MG TABLET GT PRN ×2 (06:14→22:09)
[2022-06-20 07:30] VITALS: TEMP 98.2
[2022-06-20] MEDS: LORATADINE 10 MG TABLET GT SCH (08:21)
[2022-06-20] MEDS: POLYVINYL ALCOHOL OPHT DROPS 15 ML BOTTLE EACHEYE SCH ×4 (08:21→20:54)
[2022-06-20] MEDS: DOCUSATE SODIUM 100 MG/10 ML LIQUID UDC GT SCH ×2 (08:21→20:55)
[2022-06-20] MEDS: BACLOFEN 20 MG TABLET GT SCH ×3 (08:22→17:36)
[2022-06-20] MEDS: CHLORHEXIDINE GLUCONATE 15 ML MOUTHWASH MM SCH ×2 (08:22→17:36)
[2022-06-20] MEDS: FLUTICASONE PROP NASAL SPRAY 16 GM BOTTLE NS SCH (08:22)
[2022-06-20] MEDS: FLUOXETINE HCL 20 MG CAPSULE GT SCH (08:22)
[2022-06-20] MEDS: REMEDY ESSENTIAL ZINC PASTE 113 GM TP SCH ×2 (08:23→21:00)
[2022-06-20] MEDS: HYDROCODONE/APAP 10-325 MG TABLET GT PRN ×3 (08:31→17:45)
[2022-06-20] MEDS: ENOXAPARIN SODIUM 40 MG/0.4 ML DISP.SYRIN SQ SCH (08:32)
[2022-06-20] MEDS: OLOPATADINE 0.1% OPHT DROP 5 ML BOTTLE EACHEYE SCH ×2 (09:00→17:45)
[2022-06-20] MEDS: HYDROGEN PEROXIDE 3% 118 ML BOTTLE TP SCH ×2 (09:42→23:21)
[2022-06-20] MEDS: LIDOCAINE 5% PATCH TD SCH (10:00)
[2022-06-20] MEDS: MELATONIN 3 MG TABLET GT SCH (20:56)
[2022-06-20] MEDS: hydrOXYzine HCL 25 MG TABLET GT SCH (20:59)
[2022-06-20] MEDS: ATORVASTATIN 20 MG TABLET GT SCH (20:59)
[2022-06-21] MEDS: IPRATROPIUM BROMIDE 0.5 MG/2.5 ML NEBU NEB SCH ×4 (01:08→19:11)
[2022-06-21] MEDS: JEVITY 1.2 1000 ML LIQUID GT PRN (03:13)
[2022-06-21] MEDS: OMEPRAZOLE 20 MG CAPSULE.DR GT SCH (05:23)
[2022-06-21] MEDS: RILUZOLE 50 MG TAB GT SCH ×2 (05:23→17:31)
[2022-06-21] MEDS: GABAPENTIN 400 MG CAPSULE GT SCH ×3 (05:23→20:20)
[2022-06-21] MEDS: LORAZEPAM 1 MG TABLET GT PRN ×2 (05:46→20:21)
[2022-06-21] MEDS: HYDROGEN PEROXIDE 3% 118 ML BOTTLE TP SCH ×2 (09:21→21:16)
[2022-06-21] MEDS: POLYVINYL ALCOHOL OPHT DROPS 15 ML BOTTLE EACHEYE SCH ×4 (09:52→20:18)
[2022-06-21] MEDS: BACLOFEN 20 MG TABLET GT SCH ×3 (09:53→17:22)
[2022-06-21] MEDS: CHLORHEXIDINE GLUCONATE 15 ML MOUTHWASH MM SCH ×2 (09:53→17:31)
[2022-06-21] MEDS: FLUOXETINE HCL 20 MG CAPSULE GT SCH (09:53)
[2022-06-21] MEDS: LORATADINE 10 MG TABLET GT SCH (09:53)
[2022-06-21] MEDS: OLOPATADINE 0.1% OPHT DROP 5 ML BOTTLE EACHEYE SCH ×2 (09:53→17:21)
[2022-06-21] MEDS: DOCUSATE SODIUM 100 MG/10 ML LIQUID UDC GT SCH ×2 (09:53→20:19)
[2022-06-21] MEDS: FLUTICASONE PROP NASAL SPRAY 16 GM BOTTLE NS SCH (09:54)
[2022-06-21] MEDS: LIDOCAINE 5% PATCH TD SCH (09:54)
[2022-06-21] MEDS: REMEDY ESSENTIAL ZINC PASTE 113 GM TP SCH ×2 (09:54→20:20)
[2022-06-21] MEDS: ENOXAPARIN SODIUM 40 MG/0.4 ML DISP.SYRIN SQ SCH (09:54)
[2022-06-21] MEDS: HYDROCODONE/APAP 10-325 MG TABLET GT PRN ×3 (09:55→18:15)
[2022-06-21] MEDS: hydrOXYzine HCL 25 MG TABLET GT SCH (20:19)
[2022-06-21] MEDS: ATORVASTATIN 20 MG TABLET GT SCH (20:20)
[2022-06-21] MEDS: MELATONIN 3 MG TABLET GT SCH (20:20)
[2022-06-21 20:35] VITALS: TEMP 98.4
[2022-06-22] MEDS: IPRATROPIUM BROMIDE 0.5 MG/2.5 ML NEBU NEB SCH ×4 (01:26→19:05)
[2022-06-22] MEDS: HYDROCODONE/APAP 10-325 MG TABLET GT PRN ×4 (04:30→18:31)
[2022-06-22] MEDS: JEVITY 1.2 1000 ML LIQUID GT PRN (04:36)
[2022-06-22] MEDS: GABAPENTIN 400 MG CAPSULE GT SCH ×3 (05:53→20:07)
[2022-06-22] MEDS: RILUZOLE 50 MG TAB GT SCH ×2 (05:53→17:56)
[2022-06-22] MEDS: OMEPRAZOLE 20 MG CAPSULE.DR GT SCH (05:53)
[2022-06-22 08:00] VITALS: TEMP 97.6
[2022-06-22] MEDS: HYDROGEN PEROXIDE 3% 118 ML BOTTLE TP SCH ×2 (08:18→19:05)
[2022-06-22] MEDS: POLYVINYL ALCOHOL OPHT DROPS 15 ML BOTTLE EACHEYE SCH ×4 (09:10→20:06)
[2022-06-22] MEDS: LORATADINE 10 MG TABLET GT SCH (09:11)
[2022-06-22] MEDS: OLOPATADINE 0.1% OPHT DROP 5 ML BOTTLE EACHEYE SCH ×2 (09:11→17:56)
[2022-06-22] MEDS: DOCUSATE SODIUM 100 MG/10 ML LIQUID UDC GT SCH ×2 (09:11→20:06)
[2022-06-22] MEDS: BACLOFEN 20 MG TABLET GT SCH ×3 (09:13→17:58)
[2022-06-22] MEDS: FLUOXETINE HCL 20 MG CAPSULE GT SCH (09:14)
[2022-06-22] MEDS: CHLORHEXIDINE GLUCONATE 15 ML MOUTHWASH MM SCH ×2 (09:14→17:56)
[2022-06-22] MEDS: REMEDY ESSENTIAL ZINC PASTE 113 GM TP SCH ×2 (09:15→20:08)
[2022-06-22] MEDS: LIDOCAINE 5% PATCH TD SCH (09:15)
[2022-06-22] MEDS: FLUTICASONE PROP NASAL SPRAY 16 GM BOTTLE NS SCH (09:15)
[2022-06-22] MEDS: ENOXAPARIN SODIUM 40 MG/0.4 ML DISP.SYRIN SQ SCH (09:18)
[2022-06-22 20:03] VITALS: TEMP 98.2
[2022-06-22] MEDS: hydrOXYzine HCL 25 MG TABLET GT SCH (20:06)
[2022-06-22] MEDS: MELATONIN 3 MG TABLET GT SCH (20:07)
[2022-06-22] MEDS: ATORVASTATIN 20 MG TABLET GT SCH (20:07)
[2022-06-22] MEDS: LORAZEPAM 1 MG TABLET GT PRN (20:10)
[2022-06-23] MEDS: IPRATROPIUM BROMIDE 0.5 MG/2.5 ML NEBU NEB SCH ×4 (01:36→18:59)
[2022-06-23] MEDS: LORAZEPAM 1 MG TABLET GT PRN ×2 (02:33→20:31)
[2022-06-23] MEDS: GABAPENTIN 400 MG CAPSULE GT SCH ×3 (05:40→20:28)
[2022-06-23] MEDS: RILUZOLE 50 MG TAB GT SCH ×2 (05:41→18:02)
[2022-06-23] MEDS: OMEPRAZOLE 20 MG CAPSULE.DR GT SCH (05:41)
[2022-06-23] MEDS: JEVITY 1.2 1000 ML LIQUID GT PRN (05:42)
[2022-06-23 08:00] VITALS: TEMP 98.4
[2022-06-23] MEDS: POLYVINYL ALCOHOL OPHT DROPS 15 ML BOTTLE EACHEYE SCH ×4 (09:07→20:26)
[2022-06-23] MEDS: OLOPATADINE 0.1% OPHT DROP 5 ML BOTTLE EACHEYE SCH ×2 (09:07→17:59)
[2022-06-23] MEDS: LORATADINE 10 MG TABLET GT SCH (09:08)
[2022-06-23] MEDS: FLUOXETINE HCL 20 MG CAPSULE GT SCH (09:08)
[2022-06-23] MEDS: BACLOFEN 20 MG TABLET GT SCH ×3 (09:08→17:00)
[2022-06-23] MEDS: CHLORHEXIDINE GLUCONATE 15 ML MOUTHWASH MM SCH ×2 (09:08→17:00)
[2022-06-23] MEDS: DOCUSATE SODIUM 100 MG/10 ML LIQUID UDC GT SCH ×2 (09:08→20:27)
[2022-06-23] MEDS: FLUTICASONE PROP NASAL SPRAY 16 GM BOTTLE NS SCH (09:09)
[2022-06-23] MEDS: ENOXAPARIN SODIUM 40 MG/0.4 ML DISP.SYRIN SQ SCH (09:10)
[2022-06-23] MEDS: REMEDY ESSENTIAL ZINC PASTE 113 GM TP SCH ×2 (09:11→20:28)
[2022-06-23] MEDS: LIDOCAINE 5% PATCH TD SCH (09:11)
[2022-06-23] MEDS: HYDROGEN PEROXIDE 3% 118 ML BOTTLE TP SCH ×2 (09:19→18:59)
[2022-06-23] MEDS: HYDROCODONE/APAP 10-325 MG TABLET GT PRN ×3 (09:19→18:15)
[2022-06-23 20:04] VITALS: TEMP 98.4
[2022-06-23] MEDS: hydrOXYzine HCL 25 MG TABLET GT SCH (20:26)
[2022-06-23] MEDS: ATORVASTATIN 20 MG TABLET GT SCH (20:28)
[2022-06-23] MEDS: MELATONIN 3 MG TABLET GT SCH (20:28)
[2022-06-24] MEDS: IPRATROPIUM BROMIDE 0.5 MG/2.5 ML NEBU NEB SCH ×4 (00:40→19:08)
[2022-06-24] MEDS: LORAZEPAM 1 MG TABLET GT PRN ×3 (03:03→21:53)
[2022-06-24] MEDS: OMEPRAZOLE 20 MG CAPSULE.DR GT SCH (05:05)
[2022-06-24] MEDS: GABAPENTIN 400 MG CAPSULE GT SCH ×3 (05:05→20:42)
[2022-06-24] MEDS: RILUZOLE 50 MG TAB GT SCH ×2 (05:05→18:00)
[2022-06-24] MEDS: HYDROGEN PEROXIDE 3% 118 ML BOTTLE TP SCH ×2 (07:16→22:16)
[2022-06-24 08:00] VITALS: TEMP 98.8
[2022-06-24] MEDS: HYDROCODONE/APAP 10-325 MG TABLET GT PRN ×3 (09:48→17:58)
[2022-06-24] MEDS: POLYVINYL ALCOHOL OPHT DROPS 15 ML BOTTLE EACHEYE SCH ×4 (09:49→20:39)
[2022-06-24] MEDS: OLOPATADINE 0.1% OPHT DROP 5 ML BOTTLE EACHEYE SCH ×2 (09:50→17:59)
[2022-06-24] MEDS: FLUOXETINE HCL 20 MG CAPSULE GT SCH (09:51)
[2022-06-24] MEDS: BACLOFEN 20 MG TABLET GT SCH ×3 (09:51→17:59)
[2022-06-24] MEDS: DOCUSATE SODIUM 100 MG/10 ML LIQUID UDC GT SCH ×2 (09:51→20:40)
[2022-06-24] MEDS: LORATADINE 10 MG TABLET GT SCH (09:51)
[2022-06-24] MEDS: CHLORHEXIDINE GLUCONATE 15 ML MOUTHWASH MM SCH ×2 (09:52→17:00)
[2022-06-24] MEDS: FLUTICASONE PROP NASAL SPRAY 16 GM BOTTLE NS SCH (09:53)
[2022-06-24] MEDS: ENOXAPARIN SODIUM 40 MG/0.4 ML DISP.SYRIN SQ SCH (09:54)
[2022-06-24] MEDS: REMEDY ESSENTIAL ZINC PASTE 113 GM TP SCH ×2 (09:56→20:43)
[2022-06-24] MEDS: LIDOCAINE 5% PATCH TD SCH (09:56)
[2022-06-24 20:00] VITALS: TEMP 98
[2022-06-24] MEDS: hydrOXYzine HCL 25 MG TABLET GT SCH (20:40)
[2022-06-24] MEDS: ATORVASTATIN 20 MG TABLET GT SCH (20:41)
[2022-06-24] MEDS: MELATONIN 3 MG TABLET GT SCH (20:42)
[2022-06-24] MEDS: JEVITY 1.2 1000 ML LIQUID GT PRN (21:54)
[2022-06-25] MEDS: IPRATROPIUM BROMIDE 0.5 MG/2.5 ML NEBU NEB SCH ×4 (00:16→19:10)
[2022-06-25] MEDS: LORAZEPAM 1 MG TABLET GT PRN (04:25)
[2022-06-25] MEDS: OMEPRAZOLE 20 MG CAPSULE.DR GT SCH (05:14)
[2022-06-25] MEDS: GABAPENTIN 400 MG CAPSULE GT SCH ×3 (05:14→21:00)
[2022-06-25] MEDS: RILUZOLE 50 MG TAB GT SCH ×2 (05:14→17:35)
[2022-06-25 07:49] VITALS: TEMP 97.7
[2022-06-25] MEDS: HYDROGEN PEROXIDE 3% 118 ML BOTTLE TP SCH ×2 (09:11→19:13)
[2022-06-25] MEDS: OLOPATADINE 0.1% OPHT DROP 5 ML BOTTLE EACHEYE SCH ×2 (09:36→17:35)
[2022-06-25] MEDS: BACLOFEN 20 MG TABLET GT SCH ×3 (09:37→17:35)
[2022-06-25] MEDS: FLUOXETINE HCL 20 MG CAPSULE GT SCH (09:37)
[2022-06-25] MEDS: FLUTICASONE PROP NASAL SPRAY 16 GM BOTTLE NS SCH (09:37)
[2022-06-25] MEDS: LORATADINE 10 MG TABLET GT SCH (09:37)
[2022-06-25] MEDS: CHLORHEXIDINE GLUCONATE 15 ML MOUTHWASH MM SCH ×2 (09:37→17:35)
[2022-06-25] MEDS: DOCUSATE SODIUM 100 MG/10 ML LIQUID UDC GT SCH ×2 (09:37→21:00)
[2022-06-25] MEDS: REMEDY ESSENTIAL ZINC PASTE 113 GM TP SCH ×2 (09:38→21:00)
[2022-06-25] MEDS: ENOXAPARIN SODIUM 40 MG/0.4 ML DISP.SYRIN SQ SCH (09:38)
[2022-06-25] MEDS: LIDOCAINE 5% PATCH TD SCH (09:38)
[2022-06-25] MEDS: HYDROCODONE/APAP 10-325 MG TABLET GT PRN ×2 (09:40→17:45)
[2022-06-25] MEDS: POLYVINYL ALCOHOL OPHT DROPS 15 ML BOTTLE EACHEYE SCH ×4 (09:49→21:00)
[2022-06-25 20:00] VITALS: TEMP 97.6
[2022-06-25] MEDS: MELATONIN 3 MG TABLET GT SCH (21:00)
[2022-06-25] MEDS: hydrOXYzine HCL 25 MG TABLET GT SCH (21:00)
[2022-06-25] MEDS: ATORVASTATIN 20 MG TABLET GT SCH (21:00)
[2022-06-26] MEDS: IPRATROPIUM BROMIDE 0.5 MG/2.5 ML NEBU NEB SCH ×4 (01:26→19:30)
[2022-06-26] MEDS: LORAZEPAM 1 MG TABLET GT PRN ×2 (02:33→21:26)
[2022-06-26] MEDS: GABAPENTIN 400 MG CAPSULE GT SCH ×3 (06:00→21:24)
[2022-06-26] MEDS: OMEPRAZOLE 20 MG CAPSULE.DR GT SCH (06:00)
[2022-06-26] MEDS: RILUZOLE 50 MG TAB GT SCH ×2 (06:00→18:21)
[2022-06-26 08:00] VITALS: TEMP 98
[2022-06-26] MEDS: HYDROGEN PEROXIDE 3% 118 ML BOTTLE TP SCH ×2 (08:03→19:30)
[2022-06-26] MEDS: LORATADINE 10 MG TABLET GT SCH (09:07)
[2022-06-26] MEDS: OLOPATADINE 0.1% OPHT DROP 5 ML BOTTLE EACHEYE SCH ×2 (09:07→17:00)
[2022-06-26] MEDS: POLYVINYL ALCOHOL OPHT DROPS 15 ML BOTTLE EACHEYE SCH ×4 (09:07→21:22)
[2022-06-26] MEDS: DOCUSATE SODIUM 100 MG/10 ML LIQUID UDC GT SCH ×2 (09:08→21:23)
[2022-06-26] MEDS: BACLOFEN 20 MG TABLET GT SCH ×3 (09:08→17:00)
[2022-06-26] MEDS: REMEDY ESSENTIAL ZINC PASTE 113 GM TP SCH ×2 (09:09→21:24)
[2022-06-26] MEDS: CHLORHEXIDINE GLUCONATE 15 ML MOUTHWASH MM SCH ×2 (09:09→17:00)
[2022-06-26] MEDS: FLUTICASONE PROP NASAL SPRAY 16 GM BOTTLE NS SCH (09:09)
[2022-06-26] MEDS: FLUOXETINE HCL 20 MG CAPSULE GT SCH (09:09)
[2022-06-26] MEDS: ENOXAPARIN SODIUM 40 MG/0.4 ML DISP.SYRIN SQ SCH (09:10)
[2022-06-26] MEDS: LIDOCAINE 5% PATCH TD SCH (09:12)
[2022-06-26] MEDS: HYDROCODONE/APAP 10-325 MG TABLET GT PRN ×3 (09:18→18:24)
[2022-06-26 20:00] VITALS: TEMP 97.8
[2022-06-26] MEDS: hydrOXYzine HCL 25 MG TABLET GT SCH (21:23)
[2022-06-26] MEDS: MELATONIN 3 MG TABLET GT SCH (21:24)
[2022-06-26] MEDS: ATORVASTATIN 20 MG TABLET GT SCH (21:24)
[2022-06-27] MEDS: IPRATROPIUM BROMIDE 0.5 MG/2.5 ML NEBU NEB SCH ×4 (02:01→19:04)
[2022-06-27] MEDS: LORAZEPAM 1 MG TABLET GT PRN ×2 (04:43→20:52)
[2022-06-27] MEDS: GABAPENTIN 400 MG CAPSULE GT SCH ×3 (06:07→20:52)
[2022-06-27] MEDS: OMEPRAZOLE 20 MG CAPSULE.DR GT SCH (06:07)
[2022-06-27] MEDS: RILUZOLE 50 MG TAB GT SCH ×2 (06:08→18:36)
[2022-06-27] MEDS: ACETAMINOPHEN 650 MG/20 ML UDC- SA PATIENTS-PAIN ONLY GT PRN (07:02)
[2022-06-27 08:10] VITALS: TEMP 98.6
[2022-06-27] MEDS: HYDROGEN PEROXIDE 3% 118 ML BOTTLE TP SCH ×2 (09:19→19:04)
[2022-06-27] MEDS: POLYVINYL ALCOHOL OPHT DROPS 15 ML BOTTLE EACHEYE SCH ×4 (09:34→20:52)
[2022-06-27] MEDS: OLOPATADINE 0.1% OPHT DROP 5 ML BOTTLE EACHEYE SCH ×2 (09:34→17:00)
[2022-06-27] MEDS: LORATADINE 10 MG TABLET GT SCH (09:34)
[2022-06-27] MEDS: DOCUSATE SODIUM 100 MG/10 ML LIQUID UDC GT SCH ×2 (09:35→20:52)
[2022-06-27] MEDS: FLUTICASONE PROP NASAL SPRAY 16 GM BOTTLE NS SCH (09:36)
[2022-06-27] MEDS: LIDOCAINE 5% PATCH TD SCH (09:36)
[2022-06-27] MEDS: CHLORHEXIDINE GLUCONATE 15 ML MOUTHWASH MM SCH ×2 (09:36→17:00)
[2022-06-27] MEDS: BACLOFEN 20 MG TABLET GT SCH ×3 (09:36→17:00)
[2022-06-27] MEDS: FLUOXETINE HCL 20 MG CAPSULE GT SCH (09:36)
[2022-06-27] MEDS: REMEDY ESSENTIAL ZINC PASTE 113 GM TP SCH ×2 (09:37→20:52)
[2022-06-27] MEDS: ENOXAPARIN SODIUM 40 MG/0.4 ML DISP.SYRIN SQ SCH (09:40)
[2022-06-27] MEDS: HYDROCODONE/APAP 10-325 MG TABLET GT PRN ×3 (10:06→18:38)
[2022-06-27 20:46] VITALS: TEMP 98.2
[2022-06-27] MEDS: ATORVASTATIN 20 MG TABLET GT SCH (20:52)
[2022-06-27] MEDS: MELATONIN 3 MG TABLET GT SCH (20:52)
[2022-06-27] MEDS: hydrOXYzine HCL 25 MG TABLET GT SCH (20:52)
[2022-06-28] MEDS: IPRATROPIUM BROMIDE 0.5 MG/2.5 ML NEBU NEB SCH ×4 (01:09→19:35)
[2022-06-28] MEDS: JEVITY 1.2 1000 ML LIQUID GT PRN (05:02)
[2022-06-28] MEDS: LORAZEPAM 1 MG TABLET GT PRN ×3 (05:02→20:33)
[2022-06-28] MEDS: OMEPRAZOLE 20 MG CAPSULE.DR GT SCH (05:12)
[2022-06-28] MEDS: RILUZOLE 50 MG TAB GT SCH ×2 (05:12→18:01)
[2022-06-28] MEDS: GABAPENTIN 400 MG CAPSULE GT SCH ×3 (05:12→20:32)
[2022-06-28 07:55] LABS: BASOPHILS % (AUTO) 0.3 % (0.0-2.0); EOSINOPHILS # (AUTO) 0.1 K/uL (0.0-0.7); EOSINOPHILS % (AUTO) 1.7 % (0.0-7.0); HEMATOCRIT 36.2 % (31.2-41.9); HEMOGLOBIN 12.1 g/dL (10.9-14.3); LYMPHOCYTES # (AUTO) 1.4 K/uL (0.8-4.8); LYMPHOCYTES % (AUTO) 23.3 % (20.5-51.5); MEAN CORPUSCULAR HEMOGLOBIN 31.1 uug (24.7-32.8); MEAN CORPUSCULAR HGB CONC 34 g/dL (32.3-35.6); MEAN CORPUSCULAR VOLUME 92.9 fL (75.5-95.3); MONOCYTES # (AUTO) 0.4 K/uL (0.1-1.30); MONOCYTES % (AUTO) 6.1 % (0.0-11.0); NEUTROPHILS # (AUTO) 4.2 K/uL (1.8-8.9); NEUTROPHILS % (AUTO) 68.6 % (38.5-71.5); PLATELET COUNT (AUTO) 195 K/uL (179-408); RED CELL DISTRIBUTION WIDTH 13.6 % (12.3-17.7); WHITE BLOOD COUNT (AUTO) 6.1 K/uL (3.8-11.8)
[2022-06-28 08:00] VITALS: TEMP 98.5
[2022-06-28 08:07] LABS: DIFFERENTIAL COMMENT 1
[2022-06-28 08:16] LABS: ALANINE AMINOTRANSFERASE 35 U/L (14-59); ALBUMIN 3.4 g/dL (3.4-5.0); ALKALINE PHOSPHATASE 90 U/L (50-136); ASPARTATE AMINOTRANSFERASE 18 U/L (15-37); BILIRUBIN,TOTAL 0.3 mg/dL (0.2-1.0); CALCIUM 9.1 mg/dL (8.5-10.1); CARBON DIOXIDE 36 mmol/L (21-32); CHLORIDE 98 mmol/L (98-107); CREATININE 0.3 mg/dL (0.6-1.3); GLUCOSE 110 mg/dL (74-106); MAGNESIUM 2.1 mg/dL (1.8-2.4); PHOSPHOROUS 4.5 mg/dL (2.5-4.9); POTASSIUM 3.9 mmol/L (3.5-5.1); SODIUM SERUM 138 mmol/L (136-145); TOTAL PROTEIN, SERUM 7.4 g/dL (6.4-8.2); UREA NITROGEN, BLOOD 12 mg/dL (7-18)
[2022-06-28] MEDS: POLYVINYL ALCOHOL OPHT DROPS 15 ML BOTTLE EACHEYE SCH ×4 (08:22→20:31)
[2022-06-28] MEDS: OLOPATADINE 0.1% OPHT DROP 5 ML BOTTLE EACHEYE SCH ×2 (08:23→16:55)
[2022-06-28] MEDS: CHLORHEXIDINE GLUCONATE 15 ML MOUTHWASH MM SCH ×2 (08:25→16:56)
[2022-06-28] MEDS: REMEDY ESSENTIAL ZINC PASTE 113 GM TP SCH ×2 (08:25→20:32)
[2022-06-28] MEDS: BACLOFEN 20 MG TABLET GT SCH ×3 (08:25→16:57)
[2022-06-28] MEDS: HYDROGEN PEROXIDE 3% 118 ML BOTTLE TP SCH ×2 (08:25→21:41)
[2022-06-28] MEDS: FLUOXETINE HCL 20 MG CAPSULE GT SCH (08:26)
[2022-06-28] MEDS: FLUTICASONE PROP NASAL SPRAY 16 GM BOTTLE NS SCH (08:26)
[2022-06-28] MEDS: LORATADINE 10 MG TABLET GT SCH (08:27)
[2022-06-28] MEDS: DOCUSATE SODIUM 100 MG/10 ML LIQUID UDC GT SCH ×2 (08:30→20:31)
[2022-06-28] MEDS: ENOXAPARIN SODIUM 40 MG/0.4 ML DISP.SYRIN SQ SCH (08:31)
[2022-06-28] MEDS: LIDOCAINE 5% PATCH TD SCH (08:47)
[2022-06-28] MEDS: HYDROCODONE/APAP 10-325 MG TABLET GT PRN ×2 (09:43→17:28)
[2022-06-28 20:27] VITALS: TEMP 98.6
[2022-06-28 20:29] VITALS: TEMP 98.2
[2022-06-28] MEDS: ATORVASTATIN 20 MG TABLET GT SCH (20:31)
[2022-06-28] MEDS: hydrOXYzine HCL 25 MG TABLET GT SCH (20:31)
[2022-06-28] MEDS: MELATONIN 3 MG TABLET GT SCH (20:32)
[2022-06-29] MEDS: IPRATROPIUM BROMIDE 0.5 MG/2.5 ML NEBU NEB SCH ×4 (01:40→19:26)
[2022-06-29] MEDS: JEVITY 1.2 1000 ML LIQUID GT PRN (02:30)
[2022-06-29] MEDS: LORAZEPAM 1 MG TABLET GT PRN ×3 (04:45→21:00)
[2022-06-29] MEDS: OMEPRAZOLE 20 MG CAPSULE.DR GT SCH (05:09)
[2022-06-29] MEDS: GABAPENTIN 400 MG CAPSULE GT SCH ×3 (05:09→20:52)
[2022-06-29] MEDS: RILUZOLE 50 MG TAB GT SCH ×2 (05:09→17:45)
[2022-06-29 08:00] VITALS: TEMP 97.9
[2022-06-29] MEDS: HYDROGEN PEROXIDE 3% 118 ML BOTTLE TP SCH ×2 (09:03→19:26)
[2022-06-29] MEDS: LIDOCAINE 5% PATCH TD SCH (09:15)
[2022-06-29] MEDS: HYDROCODONE/APAP 10-325 MG TABLET GT PRN ×2 (09:30→17:34)
[2022-06-29] MEDS: REMEDY ESSENTIAL ZINC PASTE 113 GM TP SCH ×2 (09:38→20:52)
[2022-06-29] MEDS: POLYVINYL ALCOHOL OPHT DROPS 15 ML BOTTLE EACHEYE SCH ×4 (09:39→20:50)
[2022-06-29] MEDS: FLUTICASONE PROP NASAL SPRAY 16 GM BOTTLE NS SCH (09:39)
[2022-06-29] MEDS: CHLORHEXIDINE GLUCONATE 15 ML MOUTHWASH MM SCH ×2 (09:39→17:45)
[2022-06-29] MEDS: LORATADINE 10 MG TABLET GT SCH (09:39)
[2022-06-29] MEDS: BACLOFEN 20 MG TABLET GT SCH ×3 (09:40→17:45)
[2022-06-29] MEDS: FLUOXETINE HCL 20 MG CAPSULE GT SCH (09:40)
[2022-06-29] MEDS: DOCUSATE SODIUM 100 MG/10 ML LIQUID UDC GT SCH ×2 (09:40→20:51)
[2022-06-29] MEDS: ENOXAPARIN SODIUM 40 MG/0.4 ML DISP.SYRIN SQ SCH (09:42)
[2022-06-29] MEDS: OLOPATADINE 0.1% OPHT DROP 5 ML BOTTLE EACHEYE SCH ×2 (09:44→17:45)
[2022-06-29 20:01] VITALS: TEMP 98.6
[2022-06-29] MEDS: hydrOXYzine HCL 25 MG TABLET GT SCH (20:50)
[2022-06-29] MEDS: ATORVASTATIN 20 MG TABLET GT SCH (20:51)
[2022-06-29] MEDS: MELATONIN 3 MG TABLET GT SCH (20:52)
[2022-06-30] MEDS: IPRATROPIUM BROMIDE 0.5 MG/2.5 ML NEBU NEB SCH ×4 (01:19→19:09)
[2022-06-30] MEDS: LORAZEPAM 1 MG TABLET GT PRN ×3 (04:00→21:17)
[2022-06-30] MEDS: JEVITY 1.2 1000 ML LIQUID GT PRN (04:00)
[2022-06-30] MEDS: GABAPENTIN 400 MG CAPSULE GT SCH ×3 (05:53→20:21)
[2022-06-30] MEDS: OMEPRAZOLE 20 MG CAPSULE.DR GT SCH (05:53)
[2022-06-30] MEDS: RILUZOLE 50 MG TAB GT SCH ×2 (05:53→18:17)
[2022-06-30 07:48] VITALS: TEMP 97.5
[2022-06-30] MEDS: LORATADINE 10 MG TABLET GT SCH (09:44)
[2022-06-30] MEDS: OLOPATADINE 0.1% OPHT DROP 5 ML BOTTLE EACHEYE SCH ×2 (09:44→17:07)
[2022-06-30] MEDS: POLYVINYL ALCOHOL OPHT DROPS 15 ML BOTTLE EACHEYE SCH ×4 (09:44→20:20)
[2022-06-30] MEDS: HYDROGEN PEROXIDE 3% 118 ML BOTTLE TP SCH ×2 (09:45→21:34)
[2022-06-30] MEDS: BACLOFEN 20 MG TABLET GT SCH ×3 (09:45→17:07)
[2022-06-30] MEDS: DOCUSATE SODIUM 100 MG/10 ML LIQUID UDC GT SCH ×2 (09:45→20:21)
[2022-06-30] MEDS: FLUTICASONE PROP NASAL SPRAY 16 GM BOTTLE NS SCH (09:46)
[2022-06-30] MEDS: CHLORHEXIDINE GLUCONATE 15 ML MOUTHWASH MM SCH ×2 (09:46→17:07)
[2022-06-30] MEDS: FLUOXETINE HCL 20 MG CAPSULE GT SCH (09:46)
[2022-06-30] MEDS: REMEDY ESSENTIAL ZINC PASTE 113 GM TP SCH ×2 (09:47→20:22)
[2022-06-30] MEDS: LIDOCAINE 5% PATCH TD SCH (09:47)
[2022-06-30] MEDS: ENOXAPARIN SODIUM 40 MG/0.4 ML DISP.SYRIN SQ SCH (09:55)
[2022-06-30] MEDS: HYDROCODONE/APAP 10-325 MG TABLET GT PRN ×2 (10:16→18:18)
[2022-06-30 20:00] VITALS: TEMP 97.8
[2022-06-30] MEDS: ATORVASTATIN 20 MG TABLET GT SCH (20:21)
[2022-06-30] MEDS: hydrOXYzine HCL 25 MG TABLET GT SCH (20:21)
[2022-06-30] MEDS: MELATONIN 3 MG TABLET GT SCH (20:22)
[2022-07-01] MEDS: IPRATROPIUM BROMIDE 0.5 MG/2.5 ML NEBU NEB SCH ×4 (01:36→19:30)
[2022-07-01] MEDS: GABAPENTIN 400 MG CAPSULE GT SCH ×3 (05:37→20:55)
[2022-07-01] MEDS: OMEPRAZOLE 20 MG CAPSULE.DR GT SCH (05:37)
[2022-07-01] MEDS: RILUZOLE 50 MG TAB GT SCH ×2 (05:37→17:14)
[2022-07-01] MEDS: JEVITY 1.2 1000 ML LIQUID GT PRN (06:21)
[2022-07-01 07:38] VITALS: TEMP 97.6
[2022-07-01] MEDS: HYDROGEN PEROXIDE 3% 118 ML BOTTLE TP SCH ×2 (08:30→21:59)
[2022-07-01] MEDS: POLYVINYL ALCOHOL OPHT DROPS 15 ML BOTTLE EACHEYE SCH ×3 (09:21→17:03)
[2022-07-01] MEDS: OLOPATADINE 0.1% OPHT DROP 5 ML BOTTLE EACHEYE SCH ×2 (09:22→17:04)
[2022-07-01] MEDS: LORATADINE 10 MG TABLET GT SCH (09:25)
[2022-07-01] MEDS: DOCUSATE SODIUM 100 MG/10 ML LIQUID UDC GT SCH ×2 (09:26→20:55)
[2022-07-01] MEDS: BACLOFEN 20 MG TABLET GT SCH ×3 (09:26→17:05)
[2022-07-01] MEDS: LIDOCAINE 5% PATCH TD SCH (09:27)
[2022-07-01] MEDS: CHLORHEXIDINE GLUCONATE 15 ML MOUTHWASH MM SCH ×2 (09:27→17:05)
[2022-07-01] MEDS: FLUTICASONE PROP NASAL SPRAY 16 GM BOTTLE NS SCH (09:27)
[2022-07-01] MEDS: FLUOXETINE HCL 20 MG CAPSULE GT SCH (09:27)
[2022-07-01] MEDS: REMEDY ESSENTIAL ZINC PASTE 113 GM TP SCH ×2 (09:28→20:55)
[2022-07-01] MEDS: ENOXAPARIN SODIUM 40 MG/0.4 ML DISP.SYRIN SQ SCH (09:28)
[2022-07-01] MEDS: HYDROCODONE/APAP 10-325 MG TABLET GT PRN ×2 (10:41→17:19)
[2022-07-01 11:25] VITALS: O2SAT 99
[2022-07-01 20:00] VITALS: TEMP 98
[2022-07-01] MEDS: ATORVASTATIN 20 MG TABLET GT SCH (20:55)
[2022-07-01] MEDS: MELATONIN 3 MG TABLET GT SCH (20:55)
[2022-07-01] MEDS: hydrOXYzine HCL 25 MG TABLET GT SCH (20:55)
[2022-07-01] MEDS: LORAZEPAM 1 MG TABLET GT PRN (20:56)
[2022-07-02] MEDS: IPRATROPIUM BROMIDE 0.5 MG/2.5 ML NEBU NEB SCH ×4 (01:30→20:01)
[2022-07-02] MEDS: RILUZOLE 50 MG TAB GT SCH ×2 (05:04→17:28)
[2022-07-02] MEDS: GABAPENTIN 400 MG CAPSULE GT SCH ×3 (05:04→20:48)
[2022-07-02] MEDS: OMEPRAZOLE 20 MG CAPSULE.DR GT SCH (05:04)
[2022-07-02] MEDS: JEVITY 1.2 1000 ML LIQUID GT PRN (05:04)
[2022-07-02 08:00] VITALS: TEMP 98.2
[2022-07-02] MEDS: OLOPATADINE 0.1% OPHT DROP 5 ML BOTTLE EACHEYE SCH ×2 (09:34→16:47)
[2022-07-02] MEDS: LORATADINE 10 MG TABLET GT SCH (09:35)
[2022-07-02] MEDS: FLUOXETINE HCL 20 MG CAPSULE GT SCH (09:36)
[2022-07-02] MEDS: DOCUSATE SODIUM 100 MG/10 ML LIQUID UDC GT SCH ×2 (09:36→20:48)
[2022-07-02] MEDS: BACLOFEN 20 MG TABLET GT SCH ×3 (09:36→16:52)
[2022-07-02] MEDS: FLUTICASONE PROP NASAL SPRAY 16 GM BOTTLE NS SCH (09:37)
[2022-07-02] MEDS: CHLORHEXIDINE GLUCONATE 15 ML MOUTHWASH MM SCH ×2 (09:37→16:47)
[2022-07-02] MEDS: ENOXAPARIN SODIUM 40 MG/0.4 ML DISP.SYRIN SQ SCH (09:38)
[2022-07-02] MEDS: HYDROGEN PEROXIDE 3% 118 ML BOTTLE TP SCH ×2 (09:39→20:01)
[2022-07-02] MEDS: REMEDY ESSENTIAL ZINC PASTE 113 GM TP SCH ×2 (09:39→20:48)
[2022-07-02] MEDS: HYDROCODONE/APAP 10-325 MG TABLET GT PRN ×2 (09:44→17:29)
[2022-07-02] MEDS: LIDOCAINE 5% PATCH TD SCH (09:47)
[2022-07-02] MEDS: LORAZEPAM 1 MG TABLET GT PRN ×2 (11:15→21:05)
[2022-07-02] MEDS: POLYVINYL ALCOHOL OPHT DROPS 15 ML BOTTLE EACHEYE PRN (17:42)
[2022-07-02 20:00] VITALS: TEMP 98.6
[2022-07-02] MEDS: MELATONIN 3 MG TABLET GT SCH (20:48)
[2022-07-02] MEDS: hydrOXYzine HCL 25 MG TABLET GT SCH (20:48)
[2022-07-02] MEDS: ATORVASTATIN 20 MG TABLET GT SCH (20:48)
[2022-07-02 22:30] VITALS: TEMP 98.6
[2022-07-03] MEDS: IPRATROPIUM BROMIDE 0.5 MG/2.5 ML NEBU NEB SCH ×4 (01:13→19:24)
[2022-07-03] MEDS: JEVITY 1.2 1000 ML LIQUID GT PRN (04:59)
[2022-07-03] MEDS: LORAZEPAM 1 MG TABLET GT PRN ×2 (05:20→21:15)
[2022-07-03] MEDS: RILUZOLE 50 MG TAB GT SCH ×2 (05:52→18:10)
[2022-07-03] MEDS: GABAPENTIN 400 MG CAPSULE GT SCH ×3 (05:52→21:15)
[2022-07-03] MEDS: OMEPRAZOLE 20 MG CAPSULE.DR GT SCH (05:52)
[2022-07-03] MEDS: HYDROGEN PEROXIDE 3% 118 ML BOTTLE TP SCH ×2 (08:53→21:30)
[2022-07-03] MEDS: ENOXAPARIN SODIUM 40 MG/0.4 ML DISP.SYRIN SQ SCH (09:00)
[2022-07-03] MEDS: CHLORHEXIDINE GLUCONATE 15 ML MOUTHWASH MM SCH ×2 (09:00→17:00)
[2022-07-03] MEDS: FLUTICASONE PROP NASAL SPRAY 16 GM BOTTLE NS SCH (09:00)
[2022-07-03] MEDS: REMEDY ESSENTIAL ZINC PASTE 113 GM TP SCH ×2 (09:00→21:15)
[2022-07-03] MEDS: LIDOCAINE 5% PATCH TD SCH (09:00)
[2022-07-03] MEDS: FLUOXETINE HCL 20 MG CAPSULE GT SCH (09:00)
[2022-07-03] MEDS: OLOPATADINE 0.1% OPHT DROP 5 ML BOTTLE EACHEYE SCH ×2 (09:54→17:00)
[2022-07-03] MEDS: HYDROCODONE/APAP 10-325 MG TABLET GT PRN ×2 (09:55→18:13)
[2022-07-03] MEDS: BACLOFEN 20 MG TABLET GT SCH ×3 (09:56→17:00)
[2022-07-03] MEDS: LORATADINE 10 MG TABLET GT SCH (09:58)
[2022-07-03] MEDS: DOCUSATE SODIUM 100 MG/10 ML LIQUID UDC GT SCH ×2 (09:58→21:15)
[2022-07-03] MEDS: ACETAMINOPHEN 650 MG/20 ML UDC- SA PATIENTS-PAIN ONLY GT PRN (13:47)
[2022-07-03 20:00] VITALS: TEMP 99.1
[2022-07-03] MEDS: hydrOXYzine HCL 25 MG TABLET GT SCH (21:15)
[2022-07-03] MEDS: MELATONIN 3 MG TABLET GT SCH (21:15)
[2022-07-03] MEDS: ATORVASTATIN 20 MG TABLET GT SCH (21:15)
[2022-07-04] MEDS: IPRATROPIUM BROMIDE 0.5 MG/2.5 ML NEBU NEB SCH ×4 (00:17→19:39)
[2022-07-04] MEDS: JEVITY 1.2 1000 ML LIQUID GT PRN (03:57)
[2022-07-04 04:16] VITALS: TEMP 97
[2022-07-04] MEDS: GABAPENTIN 400 MG CAPSULE GT SCH ×3 (05:30→21:02)
[2022-07-04] MEDS: RILUZOLE 50 MG TAB GT SCH ×2 (05:30→17:21)
[2022-07-04] MEDS: OMEPRAZOLE 20 MG CAPSULE.DR GT SCH (05:30)
[2022-07-04] MEDS: LORAZEPAM 1 MG TABLET GT PRN ×2 (05:30→21:02)
[2022-07-04 07:38] VITALS: TEMP 97.7
[2022-07-04] MEDS: LORATADINE 10 MG TABLET GT SCH (08:42)
[2022-07-04] MEDS: BACLOFEN 20 MG TABLET GT SCH ×3 (08:42→17:20)
[2022-07-04] MEDS: FLUTICASONE PROP NASAL SPRAY 16 GM BOTTLE NS SCH (08:42)
[2022-07-04] MEDS: OLOPATADINE 0.1% OPHT DROP 5 ML BOTTLE EACHEYE SCH ×2 (08:42→17:20)
[2022-07-04] MEDS: FLUOXETINE HCL 20 MG CAPSULE GT SCH (08:42)
[2022-07-04] MEDS: DOCUSATE SODIUM 100 MG/10 ML LIQUID UDC GT SCH ×2 (08:42→21:02)
[2022-07-04] MEDS: CHLORHEXIDINE GLUCONATE 15 ML MOUTHWASH MM SCH ×2 (08:42→17:21)
[2022-07-04] MEDS: LIDOCAINE 5% PATCH TD SCH (08:43)
[2022-07-04] MEDS: REMEDY ESSENTIAL ZINC PASTE 113 GM TP SCH ×2 (08:43→21:02)
[2022-07-04] MEDS: ENOXAPARIN SODIUM 40 MG/0.4 ML DISP.SYRIN SQ SCH (08:43)
[2022-07-04] MEDS: HYDROCODONE/APAP 10-325 MG TABLET GT PRN ×2 (08:56→17:21)
[2022-07-04] MEDS: HYDROGEN PEROXIDE 3% 118 ML BOTTLE TP SCH ×2 (09:52→21:59)
[2022-07-04] MEDS: MELATONIN 3 MG TABLET GT SCH (21:02)
[2022-07-04] MEDS: ATORVASTATIN 20 MG TABLET GT SCH (21:02)
[2022-07-04] MEDS: NEOMY/BACITRA/POLYMYXIN B OINT UD PACKET TP SCH (21:02)
[2022-07-04] MEDS: hydrOXYzine HCL 25 MG TABLET GT SCH (21:02)
[2022-07-04 22:46] VITALS: TEMP 98.4
[2022-07-05] MEDS: IPRATROPIUM BROMIDE 0.5 MG/2.5 ML NEBU NEB SCH ×4 (00:22→19:45)
[2022-07-05] MEDS: JEVITY 1.2 1000 ML LIQUID GT PRN (04:52)
[2022-07-05] MEDS: LORAZEPAM 1 MG TABLET GT PRN ×2 (05:00→20:45)
[2022-07-05] MEDS: OMEPRAZOLE 20 MG CAPSULE.DR GT SCH (05:10)
[2022-07-05] MEDS: RILUZOLE 50 MG TAB GT SCH ×2 (05:10→17:48)
[2022-07-05] MEDS: GABAPENTIN 400 MG CAPSULE GT SCH ×3 (05:10→20:30)
[2022-07-05 08:00] VITALS: TEMP 98.9
[2022-07-05] MEDS: LIDOCAINE 5% PATCH TD SCH (08:07)
[2022-07-05] MEDS: HYDROGEN PEROXIDE 3% 118 ML BOTTLE TP SCH ×2 (09:09→21:52)
[2022-07-05] MEDS: OLOPATADINE 0.1% OPHT DROP 5 ML BOTTLE EACHEYE SCH ×2 (09:20→17:48)
[2022-07-05] MEDS: LORATADINE 10 MG TABLET GT SCH (09:20)
[2022-07-05] MEDS: FLUOXETINE HCL 20 MG CAPSULE GT SCH (09:21)
[2022-07-05] MEDS: DOCUSATE SODIUM 100 MG/10 ML LIQUID UDC GT SCH ×2 (09:21→20:30)
[2022-07-05] MEDS: BACLOFEN 20 MG TABLET GT SCH ×3 (09:21→17:48)
[2022-07-05] MEDS: CHLORHEXIDINE GLUCONATE 15 ML MOUTHWASH MM SCH ×2 (09:21→17:48)
[2022-07-05] MEDS: NEOMY/BACITRA/POLYMYXIN B OINT UD PACKET TP SCH ×2 (09:22→20:31)
[2022-07-05] MEDS: REMEDY ESSENTIAL ZINC PASTE 113 GM TP SCH ×2 (09:22→20:31)
[2022-07-05] MEDS: ENOXAPARIN SODIUM 40 MG/0.4 ML DISP.SYRIN SQ SCH (09:22)
[2022-07-05] MEDS: FLUTICASONE PROP NASAL SPRAY 16 GM BOTTLE NS SCH (09:22)
[2022-07-05] MEDS: HYDROCODONE/APAP 10-325 MG TABLET GT PRN ×3 (09:24→17:40)
[2022-07-05 20:22] VITALS: TEMP 98.2
[2022-07-05] MEDS: hydrOXYzine HCL 25 MG TABLET GT SCH (20:30)
[2022-07-05] MEDS: ATORVASTATIN 20 MG TABLET GT SCH (20:30)
[2022-07-05] MEDS: MELATONIN 3 MG TABLET GT SCH (20:31)
[2022-07-06] MEDS: IPRATROPIUM BROMIDE 0.5 MG/2.5 ML NEBU NEB SCH ×4 (01:59→20:03)
[2022-07-06] MEDS: JEVITY 1.2 1000 ML LIQUID GT PRN (04:00)
[2022-07-06] MEDS: LORAZEPAM 1 MG TABLET GT PRN (05:31)
[2022-07-06] MEDS: OMEPRAZOLE 20 MG CAPSULE.DR GT SCH (05:43)
[2022-07-06] MEDS: GABAPENTIN 400 MG CAPSULE GT SCH ×2 (05:43→13:04)
[2022-07-06] MEDS: RILUZOLE 50 MG TAB GT SCH ×2 (05:43→17:35)
[2022-07-06] MEDS: HYDROGEN PEROXIDE 3% 118 ML BOTTLE TP SCH ×2 (07:45→20:03)
[2022-07-06 08:00] VITALS: TEMP 99.2
[2022-07-06] MEDS: LIDOCAINE 5% PATCH TD SCH (08:22)
[2022-07-06] MEDS: DOCUSATE SODIUM 100 MG/10 ML LIQUID UDC GT SCH ×2 (08:59→21:48)
[2022-07-06] MEDS: BACLOFEN 20 MG TABLET GT SCH ×3 (08:59→17:35)
[2022-07-06] MEDS: LORATADINE 10 MG TABLET GT SCH (08:59)
[2022-07-06] MEDS: OLOPATADINE 0.1% OPHT DROP 5 ML BOTTLE EACHEYE SCH ×2 (08:59→17:35)
[2022-07-06] MEDS: FLUTICASONE PROP NASAL SPRAY 16 GM BOTTLE NS SCH (09:00)
[2022-07-06] MEDS: CHLORHEXIDINE GLUCONATE 15 ML MOUTHWASH MM SCH ×2 (09:00→17:35)
[2022-07-06] MEDS: FLUOXETINE HCL 20 MG CAPSULE GT SCH (09:00)
[2022-07-06] MEDS: ENOXAPARIN SODIUM 40 MG/0.4 ML DISP.SYRIN SQ SCH (09:01)
[2022-07-06] MEDS: NEOMY/BACITRA/POLYMYXIN B OINT UD PACKET TP SCH ×2 (09:01→21:48)
[2022-07-06] MEDS: REMEDY ESSENTIAL ZINC PASTE 113 GM TP SCH ×2 (09:01→21:48)
[2022-07-06] MEDS: HYDROCODONE/APAP 10-325 MG TABLET GT PRN ×3 (09:03→17:35)
[2022-07-06 09:35] VITALS: TEMP 98.5
[2022-07-06 20:00] VITALS: TEMP 98.2
[2022-07-06] MEDS: MELATONIN 3 MG TABLET GT SCH (21:48)
[2022-07-06] MEDS: ATORVASTATIN 20 MG TABLET GT SCH (21:48)
[2022-07-06] MEDS: GABAPENTIN 300 MG/6 ML GT SCH (21:48)
[2022-07-06] MEDS: hydrOXYzine HCL 25 MG TABLET GT SCH (21:48)
[2022-07-07] MEDS: IPRATROPIUM BROMIDE 0.5 MG/2.5 ML NEBU NEB SCH ×4 (01:12→19:25)
[2022-07-07] MEDS: JEVITY 1.2 1000 ML LIQUID GT PRN (05:15)
[2022-07-07] MEDS: GABAPENTIN 300 MG/6 ML GT SCH ×3 (05:32→21:57)
[2022-07-07] MEDS: OMEPRAZOLE 20 MG CAPSULE.DR GT SCH (05:32)
[2022-07-07] MEDS: RILUZOLE 50 MG TAB GT SCH ×2 (05:33→18:03)
[2022-07-07 08:00] VITALS: TEMP 99.3
[2022-07-07] MEDS: HYDROGEN PEROXIDE 3% 118 ML BOTTLE TP SCH ×2 (08:46→20:59)
[2022-07-07] MEDS: REMEDY ESSENTIAL ZINC PASTE 113 GM TP SCH ×2 (09:00→21:59)
[2022-07-07] MEDS: OLOPATADINE 0.1% OPHT DROP 5 ML BOTTLE EACHEYE SCH ×2 (09:00→17:00)
[2022-07-07] MEDS: FLUOXETINE HCL 20 MG CAPSULE GT SCH (09:00)
[2022-07-07] MEDS: FLUTICASONE PROP NASAL SPRAY 16 GM BOTTLE NS SCH (09:00)
[2022-07-07] MEDS: BACLOFEN 20 MG TABLET GT SCH ×3 (09:00→17:00)
[2022-07-07] MEDS: LIDOCAINE 5% PATCH TD SCH (09:00)
[2022-07-07] MEDS: LORATADINE 10 MG TABLET GT SCH (09:00)
[2022-07-07] MEDS: DOCUSATE SODIUM 100 MG/10 ML LIQUID UDC GT SCH ×2 (09:00→21:55)
[2022-07-07] MEDS: CHLORHEXIDINE GLUCONATE 15 ML MOUTHWASH MM SCH ×2 (09:00→17:00)
[2022-07-07] MEDS: NEOMY/BACITRA/POLYMYXIN B OINT UD PACKET TP SCH ×2 (09:00→21:59)
[2022-07-07] MEDS: ENOXAPARIN SODIUM 40 MG/0.4 ML DISP.SYRIN SQ SCH (09:00)
[2022-07-07] MEDS: HYDROCODONE/APAP 10-325 MG TABLET GT PRN ×3 (10:05→18:33)
[2022-07-07] MEDS: POLYVINYL ALCOHOL OPHT DROPS 15 ML BOTTLE EACHEYE PRN (10:27)
[2022-07-07] MEDS ORDERED: DICLOFENAC SODIUM 100 GM GEL..GRAM. TP PRN (16:30)
[2022-07-07 20:00] VITALS: TEMP 97.6
[2022-07-07] MEDS: DICLOFENAC SODIUM 100 GM GEL..GRAM. TP SCH (21:00)
[2022-07-07] MEDS: LORAZEPAM 1 MG TABLET GT PRN (21:30)
[2022-07-07] MEDS: hydrOXYzine HCL 25 MG TABLET GT SCH (21:55)
[2022-07-07] MEDS: ATORVASTATIN 20 MG TABLET GT SCH (21:57)
[2022-07-07] MEDS: MELATONIN 3 MG TABLET GT SCH (21:57)
[2022-07-08] MEDS: IPRATROPIUM BROMIDE 0.5 MG/2.5 ML NEBU NEB SCH ×4 (00:35→19:35)
[2022-07-08] MEDS: JEVITY 1.2 1000 ML LIQUID GT PRN (04:53)
[2022-07-08] MEDS: OMEPRAZOLE 20 MG CAPSULE.DR GT SCH (05:18)
[2022-07-08] MEDS: GABAPENTIN 300 MG/6 ML GT SCH ×3 (05:18→21:17)
[2022-07-08] MEDS: POLYVINYL ALCOHOL OPHT DROPS 15 ML BOTTLE EACHEYE PRN (05:18)
[2022-07-08] MEDS: RILUZOLE 50 MG TAB GT SCH ×2 (05:18→17:48)
[2022-07-08] MEDS: HYDROGEN PEROXIDE 3% 118 ML BOTTLE TP SCH ×2 (07:26→21:00)
[2022-07-08] MEDS: DOCUSATE SODIUM 100 MG/10 ML LIQUID UDC GT SCH ×2 (08:56→21:17)
[2022-07-08] MEDS: OLOPATADINE 0.1% OPHT DROP 5 ML BOTTLE EACHEYE SCH ×2 (08:56→17:48)
[2022-07-08] MEDS: FLUOXETINE HCL 20 MG CAPSULE GT SCH (08:56)
[2022-07-08] MEDS: LORATADINE 10 MG TABLET GT SCH (08:56)
[2022-07-08] MEDS: FLUTICASONE PROP NASAL SPRAY 16 GM BOTTLE NS SCH (08:56)
[2022-07-08] MEDS: CHLORHEXIDINE GLUCONATE 15 ML MOUTHWASH MM SCH ×2 (08:56→17:48)
[2022-07-08] MEDS: BACLOFEN 20 MG TABLET GT SCH ×3 (08:56→17:48)
[2022-07-08] MEDS: ENOXAPARIN SODIUM 40 MG/0.4 ML DISP.SYRIN SQ SCH (08:57)
[2022-07-08] MEDS: REMEDY ESSENTIAL ZINC PASTE 113 GM TP SCH ×2 (08:57→21:17)
[2022-07-08] MEDS: DICLOFENAC SODIUM 100 GM GEL..GRAM. TP SCH ×2 (08:57→21:17)
[2022-07-08] MEDS: NEOMY/BACITRA/POLYMYXIN B OINT UD PACKET TP SCH ×2 (08:57→21:17)
[2022-07-08] MEDS: HYDROCODONE/APAP 10-325 MG TABLET GT PRN ×3 (08:58→17:48)
[2022-07-08 20:00] VITALS: TEMP 98.4
[2022-07-08] MEDS: LORAZEPAM 1 MG TABLET GT PRN (21:00)
[2022-07-08] MEDS: ATORVASTATIN 20 MG TABLET GT SCH (21:17)
[2022-07-08] MEDS: MELATONIN 3 MG TABLET GT SCH (21:17)
[2022-07-08] MEDS: hydrOXYzine HCL 25 MG TABLET GT SCH (21:17)
[2022-07-09] MEDS: IPRATROPIUM BROMIDE 0.5 MG/2.5 ML NEBU NEB SCH ×4 (01:20→19:04)
[2022-07-09] MEDS: OMEPRAZOLE 20 MG CAPSULE.DR GT SCH (05:49)
[2022-07-09] MEDS: GABAPENTIN 300 MG/6 ML GT SCH ×3 (05:49→20:58)
[2022-07-09] MEDS: JEVITY 1.2 1000 ML LIQUID GT PRN (05:50)
[2022-07-09] MEDS: RILUZOLE 50 MG TAB GT SCH ×2 (05:50→17:20)
[2022-07-09 08:06] VITALS: TEMP 97.7
[2022-07-09] MEDS: HYDROGEN PEROXIDE 3% 118 ML BOTTLE TP SCH ×2 (08:18→19:04)
[2022-07-09] MEDS: FLUTICASONE PROP NASAL SPRAY 16 GM BOTTLE NS SCH (09:00)
[2022-07-09] MEDS: FLUOXETINE HCL 20 MG CAPSULE GT SCH (09:38)
[2022-07-09] MEDS: BACLOFEN 20 MG TABLET GT SCH ×3 (09:38→17:14)
[2022-07-09] MEDS: CHLORHEXIDINE GLUCONATE 15 ML MOUTHWASH MM SCH ×2 (09:39→17:20)
[2022-07-09] MEDS: ENOXAPARIN SODIUM 40 MG/0.4 ML DISP.SYRIN SQ SCH (09:45)
[2022-07-09] MEDS: NEOMY/BACITRA/POLYMYXIN B OINT UD PACKET TP SCH ×2 (09:46→20:54)
[2022-07-09] MEDS: REMEDY ESSENTIAL ZINC PASTE 113 GM TP SCH ×2 (09:46→20:54)
[2022-07-09] MEDS: DICLOFENAC SODIUM 100 GM GEL..GRAM. TP SCH ×2 (09:47→20:50)
[2022-07-09] MEDS: OLOPATADINE 0.1% OPHT DROP 5 ML BOTTLE EACHEYE SCH ×2 (09:48→17:28)
[2022-07-09] MEDS: DOCUSATE SODIUM 100 MG/10 ML LIQUID UDC GT SCH ×2 (09:48→20:49)
[2022-07-09] MEDS: LORATADINE 10 MG TABLET GT SCH (09:51)
[2022-07-09] MEDS: HYDROCODONE/APAP 10-325 MG TABLET GT PRN ×3 (10:03→18:33)
[2022-07-09 20:00] VITALS: TEMP 98.5
[2022-07-09] MEDS: LORAZEPAM 1 MG TABLET GT PRN (20:08)
[2022-07-09] MEDS: hydrOXYzine HCL 25 MG TABLET GT SCH (20:48)
[2022-07-09] MEDS: ATORVASTATIN 20 MG TABLET GT SCH (20:49)
[2022-07-09] MEDS: MELATONIN 3 MG TABLET GT SCH (20:50)
[2022-07-10] MEDS: IPRATROPIUM BROMIDE 0.5 MG/2.5 ML NEBU NEB SCH ×4 (01:04→19:14)
[2022-07-10] MEDS: OMEPRAZOLE 20 MG CAPSULE.DR GT SCH (06:14)
[2022-07-10] MEDS: RILUZOLE 50 MG TAB GT SCH ×2 (06:14→18:39)
[2022-07-10] MEDS: GABAPENTIN 300 MG/6 ML GT SCH ×3 (06:14→21:10)
[2022-07-10] MEDS: LORAZEPAM 1 MG TABLET GT PRN ×2 (06:15→21:04)
[2022-07-10 08:02] VITALS: TEMP 98.4
[2022-07-10] MEDS: LORATADINE 10 MG TABLET GT SCH (09:48)
[2022-07-10] MEDS: OLOPATADINE 0.1% OPHT DROP 5 ML BOTTLE EACHEYE SCH ×2 (09:48→18:00)
[2022-07-10] MEDS: DOCUSATE SODIUM 100 MG/10 ML LIQUID UDC GT SCH ×2 (09:48→21:09)
[2022-07-10] MEDS: HYDROGEN PEROXIDE 3% 118 ML BOTTLE TP SCH ×2 (09:50→19:14)
[2022-07-10] MEDS: CHLORHEXIDINE GLUCONATE 15 ML MOUTHWASH MM SCH ×2 (09:51→15:00)
[2022-07-10] MEDS: BACLOFEN 20 MG TABLET GT SCH ×3 (09:51→18:00)
[2022-07-10] MEDS: FLUOXETINE HCL 20 MG CAPSULE GT SCH (09:51)
[2022-07-10] MEDS: FLUTICASONE PROP NASAL SPRAY 16 GM BOTTLE NS SCH (09:51)
[2022-07-10] MEDS: ENOXAPARIN SODIUM 40 MG/0.4 ML DISP.SYRIN SQ SCH (09:52)
[2022-07-10] MEDS: DICLOFENAC SODIUM 100 GM GEL..GRAM. TP SCH ×2 (09:52→21:10)
[2022-07-10] MEDS: REMEDY ESSENTIAL ZINC PASTE 113 GM TP SCH ×2 (09:53→21:10)
[2022-07-10] MEDS: NEOMY/BACITRA/POLYMYXIN B OINT UD PACKET TP SCH ×2 (09:53→21:10)
[2022-07-10] MEDS: HYDROCODONE/APAP 10-325 MG TABLET GT PRN ×3 (10:11→19:09)
[2022-07-10] MEDS: JEVITY 1.2 1000 ML LIQUID GT PRN (10:11)
[2022-07-10 20:00] VITALS: TEMP 97.5
[2022-07-10] MEDS: hydrOXYzine HCL 25 MG TABLET GT SCH (21:09)
[2022-07-10] MEDS: MELATONIN 3 MG TABLET GT SCH (21:10)
[2022-07-10] MEDS: ATORVASTATIN 20 MG TABLET GT SCH (21:10)
[2022-07-11] MEDS: IPRATROPIUM BROMIDE 0.5 MG/2.5 ML NEBU NEB SCH ×4 (01:19→19:13)
[2022-07-11] MEDS: GABAPENTIN 300 MG/6 ML GT SCH ×3 (06:00→21:38)
[2022-07-11] MEDS: RILUZOLE 50 MG TAB GT SCH ×2 (06:00→17:42)
[2022-07-11] MEDS: LORAZEPAM 1 MG TABLET GT PRN ×2 (06:25→21:38)
[2022-07-11] MEDS: OMEPRAZOLE 20 MG CAPSULE.DR GT SCH (06:37)
[2022-07-11 07:42] VITALS: TEMP 98.2
[2022-07-11] MEDS: OLOPATADINE 0.1% OPHT DROP 5 ML BOTTLE EACHEYE SCH ×2 (08:57→17:41)
[2022-07-11] MEDS: BACLOFEN 20 MG TABLET GT SCH ×3 (08:58→17:41)
[2022-07-11] MEDS: LORATADINE 10 MG TABLET GT SCH (08:58)
[2022-07-11] MEDS: DOCUSATE SODIUM 100 MG/10 ML LIQUID UDC GT SCH ×2 (08:58→21:38)
[2022-07-11] MEDS: CHLORHEXIDINE GLUCONATE 15 ML MOUTHWASH MM SCH ×2 (08:58→17:42)
[2022-07-11] MEDS: FLUOXETINE HCL 20 MG CAPSULE GT SCH (08:58)
[2022-07-11] MEDS: FLUTICASONE PROP NASAL SPRAY 16 GM BOTTLE NS SCH (08:58)
[2022-07-11] MEDS: NEOMY/BACITRA/POLYMYXIN B OINT UD PACKET TP SCH ×2 (08:59→21:33)
[2022-07-11] MEDS: REMEDY ESSENTIAL ZINC PASTE 113 GM TP SCH ×2 (08:59→21:32)
[2022-07-11] MEDS: DICLOFENAC SODIUM 100 GM GEL..GRAM. TP SCH ×2 (08:59→21:32)
[2022-07-11] MEDS: ENOXAPARIN SODIUM 40 MG/0.4 ML DISP.SYRIN SQ SCH (09:00)
[2022-07-11] MEDS: HYDROCODONE/APAP 10-325 MG TABLET GT PRN ×3 (09:00→17:43)
[2022-07-11] MEDS: HYDROGEN PEROXIDE 3% 118 ML BOTTLE TP SCH ×2 (09:20→18:55)
[2022-07-11] MEDS ORDERED: OLOPATADINE 0.1% OPHT DROP 5 ML BOTTLE ONE (11:00)
[2022-07-11] MEDS: JEVITY 1.2 1000 ML LIQUID GT PRN (12:56)
[2022-07-11 20:00] VITALS: TEMP 97.2
[2022-07-11] MEDS: ATORVASTATIN 20 MG TABLET GT SCH (21:33)
[2022-07-11] MEDS: MELATONIN 3 MG TABLET GT SCH (21:37)
[2022-07-11] MEDS: hydrOXYzine HCL 25 MG TABLET GT SCH (21:38)
[2022-07-12] MEDS: IPRATROPIUM BROMIDE 0.5 MG/2.5 ML NEBU NEB SCH ×4 (00:52→19:25)
[2022-07-12] MEDS: OMEPRAZOLE 20 MG CAPSULE.DR GT SCH (06:20)
[2022-07-12] MEDS: RILUZOLE 50 MG TAB GT SCH ×2 (06:21→17:58)
[2022-07-12] MEDS: GABAPENTIN 300 MG/6 ML GT SCH ×3 (06:22→20:41)
[2022-07-12 08:00] VITALS: TEMP 98.5
[2022-07-12] MEDS: LORAZEPAM 1 MG TABLET GT PRN ×2 (08:02→21:32)
[2022-07-12] MEDS: HYDROGEN PEROXIDE 3% 118 ML BOTTLE TP SCH ×2 (09:05→21:00)
[2022-07-12] MEDS: OLOPATADINE 0.1% OPHT DROP 5 ML BOTTLE EACHEYE SCH ×2 (09:44→16:55)
[2022-07-12] MEDS: LORATADINE 10 MG TABLET GT SCH (09:44)
[2022-07-12] MEDS: DOCUSATE SODIUM 100 MG/10 ML LIQUID UDC GT SCH ×2 (09:45→20:38)
[2022-07-12] MEDS: BACLOFEN 20 MG TABLET GT SCH ×3 (09:46→16:56)
[2022-07-12] MEDS: FLUOXETINE HCL 20 MG CAPSULE GT SCH (09:46)
[2022-07-12] MEDS: CHLORHEXIDINE GLUCONATE 15 ML MOUTHWASH MM SCH ×2 (09:46→16:56)
[2022-07-12] MEDS: FLUTICASONE PROP NASAL SPRAY 16 GM BOTTLE NS SCH (09:47)
[2022-07-12] MEDS: ENOXAPARIN SODIUM 40 MG/0.4 ML DISP.SYRIN SQ SCH (09:48)
[2022-07-12] MEDS: DICLOFENAC SODIUM 100 GM GEL..GRAM. TP SCH ×2 (09:49→20:42)
[2022-07-12] MEDS: NEOMY/BACITRA/POLYMYXIN B OINT UD PACKET TP SCH ×2 (09:49→20:42)
[2022-07-12] MEDS: REMEDY ESSENTIAL ZINC PASTE 113 GM TP SCH ×2 (09:49→20:42)
[2022-07-12] MEDS: HYDROCODONE/APAP 10-325 MG TABLET GT PRN ×3 (09:53→17:56)
[2022-07-12] MEDS: POLYVINYL ALCOHOL OPHT DROPS 15 ML BOTTLE EACHEYE PRN ×2 (10:05→17:05)
[2022-07-12] MEDS: JEVITY 1.2 1000 ML LIQUID GT PRN (13:39)
[2022-07-12] MEDS: MAGNESIUM HYDROXIDE 30 ML LIQUID UDC GT PRN (16:05)
[2022-07-12 20:06] VITALS: TEMP 98.7
[2022-07-12] MEDS: hydrOXYzine HCL 25 MG TABLET GT SCH (20:37)
[2022-07-12] MEDS: ATORVASTATIN 20 MG TABLET GT SCH (20:41)
[2022-07-12] MEDS: MELATONIN 3 MG TABLET GT SCH (20:42)
[2022-07-13] MEDS: IPRATROPIUM BROMIDE 0.5 MG/2.5 ML NEBU NEB SCH ×4 (01:42→18:56)
[2022-07-13] MEDS: GABAPENTIN 300 MG/6 ML GT SCH ×3 (05:42→20:31)
[2022-07-13] MEDS: OMEPRAZOLE 20 MG CAPSULE.DR GT SCH (05:44)
[2022-07-13] MEDS: RILUZOLE 50 MG TAB GT SCH ×2 (05:45→18:12)
[2022-07-13] MEDS: HYDROGEN PEROXIDE 3% 118 ML BOTTLE TP SCH ×2 (07:44→18:56)
[2022-07-13 08:00] VITALS: TEMP 98.6
[2022-07-13] MEDS: ENOXAPARIN SODIUM 40 MG/0.4 ML DISP.SYRIN SQ SCH (09:00)
[2022-07-13] MEDS: DOCUSATE SODIUM 100 MG/10 ML LIQUID UDC GT SCH ×2 (09:00→20:31)
[2022-07-13] MEDS: BACLOFEN 20 MG TABLET GT SCH ×3 (09:00→17:00)
[2022-07-13] MEDS: DICLOFENAC SODIUM 100 GM GEL..GRAM. TP SCH ×2 (09:00→20:35)
[2022-07-13] MEDS: FLUOXETINE HCL 20 MG CAPSULE GT SCH (09:00)
[2022-07-13] MEDS: REMEDY ESSENTIAL ZINC PASTE 113 GM TP SCH ×2 (09:00→20:35)
[2022-07-13] MEDS: FLUTICASONE PROP NASAL SPRAY 16 GM BOTTLE NS SCH (09:00)
[2022-07-13] MEDS: LORATADINE 10 MG TABLET GT SCH (09:00)
[2022-07-13] MEDS: NEOMY/BACITRA/POLYMYXIN B OINT UD PACKET TP SCH ×2 (09:00→20:35)
[2022-07-13] MEDS: CHLORHEXIDINE GLUCONATE 15 ML MOUTHWASH MM SCH ×2 (09:00→17:00)
[2022-07-13] MEDS: OLOPATADINE 0.1% OPHT DROP 5 ML BOTTLE EACHEYE SCH ×2 (09:00→13:30)
[2022-07-13] MEDS: NYSTATIN OINTMENT 15 GM TUBE TP SCH ×2 (09:00→20:35)
[2022-07-13] MEDS: HYDROCODONE/APAP 10-325 MG TABLET GT PRN ×3 (10:14→18:16)
[2022-07-13] MEDS: JEVITY 1.2 1000 ML LIQUID GT PRN (15:15)
[2022-07-13] MEDS ORDERED: SERTRALINE HCL 50 MG TABLET PO SCH (17:00)
[2022-07-13 20:29] VITALS: TEMP 98.4
[2022-07-13] MEDS: hydrOXYzine HCL 25 MG TABLET GT SCH (20:29)
[2022-07-13] MEDS: ATORVASTATIN 20 MG TABLET GT SCH (20:31)
[2022-07-13] MEDS: MELATONIN 3 MG TABLET GT SCH (20:34)
[2022-07-13] MEDS: LORAZEPAM 1 MG TABLET GT PRN (21:53)
[2022-07-14] MEDS: IPRATROPIUM BROMIDE 0.5 MG/2.5 ML NEBU NEB SCH ×4 (01:27→19:09)
[2022-07-14] MEDS: OMEPRAZOLE 20 MG CAPSULE.DR GT SCH (05:05)
[2022-07-14] MEDS: RILUZOLE 50 MG TAB GT SCH ×2 (05:05→17:37)
[2022-07-14] MEDS: GABAPENTIN 300 MG/6 ML GT SCH ×3 (05:05→20:54)
[2022-07-14] MEDS: LORAZEPAM 1 MG TABLET GT PRN (05:21)
[2022-07-14 07:44] VITALS: TEMP 98.8
[2022-07-14] MEDS: HYDROGEN PEROXIDE 3% 118 ML BOTTLE TP SCH ×2 (08:35→19:09)
[2022-07-14] MEDS: LORATADINE 10 MG TABLET GT SCH (09:16)
[2022-07-14] MEDS: OLOPATADINE 0.1% OPHT DROP 5 ML BOTTLE EACHEYE SCH ×2 (09:16→17:37)
[2022-07-14] MEDS: FLUTICASONE PROP NASAL SPRAY 16 GM BOTTLE NS SCH (09:17)
[2022-07-14] MEDS: BACLOFEN 20 MG TABLET GT SCH ×3 (09:17→17:37)
[2022-07-14] MEDS: FLUOXETINE HCL 20 MG CAPSULE GT SCH (09:17)
[2022-07-14] MEDS: CHLORHEXIDINE GLUCONATE 15 ML MOUTHWASH MM SCH ×2 (09:17→17:37)
[2022-07-14] MEDS: DOCUSATE SODIUM 100 MG/10 ML LIQUID UDC GT SCH ×2 (09:17→20:54)
[2022-07-14] MEDS: NYSTATIN OINTMENT 15 GM TUBE TP SCH ×2 (09:18→20:55)
[2022-07-14] MEDS: ENOXAPARIN SODIUM 40 MG/0.4 ML DISP.SYRIN SQ SCH (09:18)
[2022-07-14] MEDS: NEOMY/BACITRA/POLYMYXIN B OINT UD PACKET TP SCH ×2 (09:18→20:55)
[2022-07-14] MEDS: DICLOFENAC SODIUM 100 GM GEL..GRAM. TP SCH ×2 (09:18→20:55)
[2022-07-14] MEDS: REMEDY ESSENTIAL ZINC PASTE 113 GM TP SCH ×2 (09:18→20:55)
[2022-07-14] MEDS: HYDROCODONE/APAP 10-325 MG TABLET GT PRN ×3 (09:41→17:52)
[2022-07-14] MEDS: SERTRALINE HCL 50 MG TABLET PO SCH (12:00)
[2022-07-14] MEDS: hydrOXYzine HCL 25 MG TABLET GT SCH (20:54)
[2022-07-14] MEDS: MELATONIN 3 MG TABLET GT SCH (20:54)
[2022-07-14] MEDS: ATORVASTATIN 20 MG TABLET GT SCH (20:54)
[2022-07-14] MEDS: JEVITY 1.2 1000 ML LIQUID GT PRN (21:02)
[2022-07-15] MEDS: IPRATROPIUM BROMIDE 0.5 MG/2.5 ML NEBU NEB SCH ×4 (01:43→19:30)
[2022-07-15] MEDS: LORAZEPAM 1 MG TABLET GT PRN ×2 (02:54→21:00)
[2022-07-15] MEDS: OMEPRAZOLE 20 MG CAPSULE.DR GT SCH (05:51)
[2022-07-15] MEDS: GABAPENTIN 300 MG/6 ML GT SCH ×3 (05:51→20:59)
[2022-07-15] MEDS: RILUZOLE 50 MG TAB GT SCH ×2 (05:51→17:14)
[2022-07-15] MEDS: HYDROGEN PEROXIDE 3% 118 ML BOTTLE TP SCH ×2 (07:26→21:00)
[2022-07-15 08:00] VITALS: TEMP 97.6
[2022-07-15] MEDS: DICLOFENAC SODIUM 100 GM GEL..GRAM. TP SCH ×2 (09:00→20:59)
[2022-07-15] MEDS: OLOPATADINE 0.1% OPHT DROP 5 ML BOTTLE EACHEYE SCH ×2 (09:43→17:14)
[2022-07-15] MEDS: LORATADINE 10 MG TABLET GT SCH (09:43)
[2022-07-15] MEDS: DOCUSATE SODIUM 100 MG/10 ML LIQUID UDC GT SCH ×2 (09:43→20:59)
[2022-07-15] MEDS: FLUOXETINE HCL 20 MG CAPSULE GT SCH (09:44)
[2022-07-15] MEDS: CHLORHEXIDINE GLUCONATE 15 ML MOUTHWASH MM SCH ×2 (09:44→17:14)
[2022-07-15] MEDS: BACLOFEN 20 MG TABLET GT SCH ×3 (09:44→17:14)
[2022-07-15] MEDS: ENOXAPARIN SODIUM 40 MG/0.4 ML DISP.SYRIN SQ SCH (09:45)
[2022-07-15] MEDS: FLUTICASONE PROP NASAL SPRAY 16 GM BOTTLE NS SCH (09:45)
[2022-07-15] MEDS: NEOMY/BACITRA/POLYMYXIN B OINT UD PACKET TP SCH ×2 (09:49→20:59)
[2022-07-15] MEDS: NYSTATIN OINTMENT 15 GM TUBE TP SCH ×2 (09:49→20:59)
[2022-07-15] MEDS: REMEDY ESSENTIAL ZINC PASTE 113 GM TP SCH ×2 (09:49→20:59)
[2022-07-15] MEDS: HYDROCODONE/APAP 10-325 MG TABLET GT PRN ×3 (10:03→18:00)
[2022-07-15] MEDS: SERTRALINE HCL 50 MG TABLET PO SCH (12:00)
[2022-07-15] MEDS: JEVITY 1.2 1000 ML LIQUID GT PRN (16:05)
[2022-07-15] MEDS: hydrOXYzine HCL 25 MG TABLET GT SCH (20:59)
[2022-07-15] MEDS: ATORVASTATIN 20 MG TABLET GT SCH (20:59)
[2022-07-15] MEDS: MELATONIN 3 MG TABLET GT SCH (20:59)
[2022-07-15 21:08] VITALS: TEMP 98.1
[2022-07-16] MEDS: IPRATROPIUM BROMIDE 0.5 MG/2.5 ML NEBU NEB SCH ×4 (01:25→19:57)
[2022-07-16] MEDS: LORAZEPAM 1 MG TABLET GT PRN ×2 (04:04→21:49)
[2022-07-16] MEDS: GABAPENTIN 300 MG/6 ML GT SCH ×3 (05:37→21:49)
[2022-07-16] MEDS: RILUZOLE 50 MG TAB GT SCH ×2 (05:37→17:56)
[2022-07-16] MEDS: OMEPRAZOLE 20 MG CAPSULE.DR GT SCH (05:37)
[2022-07-16] MEDS: HYDROGEN PEROXIDE 3% 118 ML BOTTLE TP SCH ×2 (07:55→21:05)
[2022-07-16 07:56] VITALS: TEMP 97.6
[2022-07-16] MEDS: BACLOFEN 20 MG TABLET GT SCH ×3 (09:23→17:56)
[2022-07-16] MEDS: DOCUSATE SODIUM 100 MG/10 ML LIQUID UDC GT SCH ×2 (09:23→21:42)
[2022-07-16] MEDS: LORATADINE 10 MG TABLET GT SCH (09:23)
[2022-07-16] MEDS: OLOPATADINE 0.1% OPHT DROP 5 ML BOTTLE EACHEYE SCH ×2 (09:23→17:56)
[2022-07-16] MEDS: CHLORHEXIDINE GLUCONATE 15 ML MOUTHWASH MM SCH ×2 (09:24→17:56)
[2022-07-16] MEDS: FLUTICASONE PROP NASAL SPRAY 16 GM BOTTLE NS SCH (09:24)
[2022-07-16] MEDS: FLUOXETINE HCL 20 MG CAPSULE GT SCH (09:24)
[2022-07-16] MEDS: DICLOFENAC SODIUM 100 GM GEL..GRAM. TP SCH ×2 (09:25→21:43)
[2022-07-16] MEDS: ENOXAPARIN SODIUM 40 MG/0.4 ML DISP.SYRIN SQ SCH (09:25)
[2022-07-16] MEDS: NYSTATIN OINTMENT 15 GM TUBE TP SCH ×2 (09:25→21:43)
[2022-07-16] MEDS: REMEDY ESSENTIAL ZINC PASTE 113 GM TP SCH ×2 (09:26→21:43)
[2022-07-16] MEDS: NEOMY/BACITRA/POLYMYXIN B OINT UD PACKET TP SCH ×2 (09:26→21:43)
[2022-07-16] MEDS: HYDROCODONE/APAP 10-325 MG TABLET GT PRN ×3 (09:27→17:56)
[2022-07-16] MEDS: SERTRALINE HCL 50 MG TABLET PO SCH (12:00)
[2022-07-16 20:00] VITALS: TEMP 98.5
[2022-07-16] MEDS: ATORVASTATIN 20 MG TABLET GT SCH (21:41)
[2022-07-16] MEDS: hydrOXYzine HCL 25 MG TABLET GT SCH (21:41)
[2022-07-16] MEDS: MELATONIN 3 MG TABLET GT SCH (21:43)
[2022-07-17] MEDS: IPRATROPIUM BROMIDE 0.5 MG/2.5 ML NEBU NEB SCH ×4 (00:57→19:20)
[2022-07-17] MEDS: LORAZEPAM 1 MG TABLET GT PRN ×2 (03:49→21:03)
[2022-07-17] MEDS: OMEPRAZOLE 20 MG CAPSULE.DR GT SCH (05:38)
[2022-07-17] MEDS: RILUZOLE 50 MG TAB GT SCH ×2 (05:38→17:22)
[2022-07-17] MEDS: GABAPENTIN 300 MG/6 ML GT SCH ×3 (05:38→21:08)
[2022-07-17] MEDS: HYDROGEN PEROXIDE 3% 118 ML BOTTLE TP SCH ×2 (07:45→21:00)
[2022-07-17 07:51] VITALS: TEMP 97.7
[2022-07-17] MEDS: REMEDY ESSENTIAL ZINC PASTE 113 GM TP SCH ×2 (09:31→21:02)
[2022-07-17] MEDS: NEOMY/BACITRA/POLYMYXIN B OINT UD PACKET TP SCH ×2 (09:31→21:02)
[2022-07-17] MEDS: NYSTATIN OINTMENT 15 GM TUBE TP SCH ×2 (09:32→21:01)
[2022-07-17] MEDS: CHLORHEXIDINE GLUCONATE 15 ML MOUTHWASH MM SCH ×2 (09:32→16:10)
[2022-07-17] MEDS: DOCUSATE SODIUM 100 MG/10 ML LIQUID UDC GT SCH ×2 (09:32→20:58)
[2022-07-17] MEDS: FLUTICASONE PROP NASAL SPRAY 16 GM BOTTLE NS SCH (09:32)
[2022-07-17] MEDS: DICLOFENAC SODIUM 100 GM GEL..GRAM. TP SCH ×2 (09:32→21:01)
[2022-07-17] MEDS: BACLOFEN 20 MG TABLET GT SCH ×3 (09:34→16:10)
[2022-07-17] MEDS: OLOPATADINE 0.1% OPHT DROP 5 ML BOTTLE EACHEYE SCH ×2 (09:38→16:09)
[2022-07-17] MEDS: FLUOXETINE HCL 20 MG CAPSULE GT SCH (09:38)
[2022-07-17] MEDS: LORATADINE 10 MG TABLET GT SCH (09:38)
[2022-07-17] MEDS: ENOXAPARIN SODIUM 40 MG/0.4 ML DISP.SYRIN SQ SCH (09:41)
[2022-07-17] MEDS: HYDROCODONE/APAP 10-325 MG TABLET GT PRN ×3 (10:30→19:03)
[2022-07-17] MEDS: SERTRALINE HCL 50 MG TABLET PO SCH (12:00)
[2022-07-17] MEDS: JEVITY 1.2 1000 ML LIQUID GT PRN (13:43)
[2022-07-17 20:00] VITALS: TEMP 98.6
[2022-07-17] MEDS: hydrOXYzine HCL 25 MG TABLET GT SCH (20:57)
[2022-07-17] MEDS: ATORVASTATIN 20 MG TABLET GT SCH (20:59)
[2022-07-17] MEDS: MELATONIN 3 MG TABLET GT SCH (20:59)
[2022-07-17] MEDS: POLYVINYL ALCOHOL OPHT DROPS 15 ML BOTTLE EACHEYE PRN (21:13)
[2022-07-18] MEDS: IPRATROPIUM BROMIDE 0.5 MG/2.5 ML NEBU NEB SCH ×4 (01:35→19:30)
[2022-07-18] MEDS: OMEPRAZOLE 20 MG CAPSULE.DR GT SCH (05:33)
[2022-07-18] MEDS: GABAPENTIN 300 MG/6 ML GT SCH ×3 (05:33→21:47)
[2022-07-18] MEDS: RILUZOLE 50 MG TAB GT SCH ×2 (05:33→17:58)
[2022-07-18 08:00] VITALS: TEMP 97.7
[2022-07-18] MEDS: HYDROGEN PEROXIDE 3% 118 ML BOTTLE TP SCH ×2 (09:00→21:00)
[2022-07-18] MEDS: FLUOXETINE HCL 20 MG CAPSULE GT SCH (09:42)
[2022-07-18] MEDS: FLUTICASONE PROP NASAL SPRAY 16 GM BOTTLE NS SCH (09:42)
[2022-07-18] MEDS: BACLOFEN 20 MG TABLET GT SCH ×3 (09:42→17:58)
[2022-07-18] MEDS: CHLORHEXIDINE GLUCONATE 15 ML MOUTHWASH MM SCH ×2 (09:42→17:58)
[2022-07-18] MEDS: LORATADINE 10 MG TABLET GT SCH (09:42)
[2022-07-18] MEDS: OLOPATADINE 0.1% OPHT DROP 5 ML BOTTLE EACHEYE SCH ×2 (09:42→17:58)
[2022-07-18] MEDS: DOCUSATE SODIUM 100 MG/10 ML LIQUID UDC GT SCH ×2 (09:42→21:47)
[2022-07-18] MEDS: DICLOFENAC SODIUM 100 GM GEL..GRAM. TP SCH ×2 (09:43→21:47)
[2022-07-18] MEDS: ENOXAPARIN SODIUM 40 MG/0.4 ML DISP.SYRIN SQ SCH (09:43)
[2022-07-18] MEDS: NYSTATIN OINTMENT 15 GM TUBE TP SCH ×2 (09:44→21:48)
[2022-07-18] MEDS: REMEDY ESSENTIAL ZINC PASTE 113 GM TP SCH ×2 (09:44→21:49)
[2022-07-18] MEDS: HYDROCODONE/APAP 10-325 MG TABLET GT PRN ×2 (09:44→18:03)
[2022-07-18] MEDS: NEOMY/BACITRA/POLYMYXIN B OINT UD PACKET TP SCH (09:44)
[2022-07-18] MEDS: LORAZEPAM 1 MG TABLET GT PRN (11:06)
[2022-07-18] MEDS: JEVITY 1.2 1000 ML LIQUID GT PRN (11:07)
[2022-07-18] MEDS: SERTRALINE HCL 50 MG TABLET PO SCH (12:00)
[2022-07-18 20:56] VITALS: TEMP 98.2
[2022-07-18] MEDS: hydrOXYzine HCL 25 MG TABLET GT SCH (21:47)
[2022-07-18] MEDS: MELATONIN 3 MG TABLET GT SCH (21:47)
[2022-07-18] MEDS: ATORVASTATIN 20 MG TABLET GT SCH (21:47)
[2022-07-19] MEDS: IPRATROPIUM BROMIDE 0.5 MG/2.5 ML NEBU NEB SCH ×4 (00:35→19:30)
[2022-07-19] MEDS: RILUZOLE 50 MG TAB GT SCH ×2 (05:46→17:42)
[2022-07-19] MEDS: OMEPRAZOLE 20 MG CAPSULE.DR GT SCH (05:46)
[2022-07-19] MEDS: GABAPENTIN 300 MG/6 ML GT SCH ×3 (05:46→21:06)
[2022-07-19] MEDS: HYDROGEN PEROXIDE 3% 118 ML BOTTLE TP SCH ×2 (07:21→20:40)
[2022-07-19 08:00] VITALS: TEMP 98.4
[2022-07-19] MEDS: OLOPATADINE 0.1% OPHT DROP 5 ML BOTTLE EACHEYE SCH ×2 (09:12→17:41)
[2022-07-19] MEDS: LORATADINE 10 MG TABLET GT SCH (09:12)
[2022-07-19] MEDS: BACLOFEN 20 MG TABLET GT SCH ×3 (09:13→17:42)
[2022-07-19] MEDS: DOCUSATE SODIUM 100 MG/10 ML LIQUID UDC GT SCH ×2 (09:13→21:06)
[2022-07-19] MEDS: FLUOXETINE HCL 20 MG CAPSULE GT SCH (09:14)
[2022-07-19] MEDS: CHLORHEXIDINE GLUCONATE 15 ML MOUTHWASH MM SCH ×2 (09:14→17:42)
[2022-07-19] MEDS: FLUTICASONE PROP NASAL SPRAY 16 GM BOTTLE NS SCH (09:14)
[2022-07-19] MEDS: DICLOFENAC SODIUM 100 GM GEL..GRAM. TP SCH ×2 (09:15→21:06)
[2022-07-19] MEDS: ENOXAPARIN SODIUM 40 MG/0.4 ML DISP.SYRIN SQ SCH (09:15)
[2022-07-19] MEDS: REMEDY ESSENTIAL ZINC PASTE 113 GM TP SCH ×2 (09:23→21:06)
[2022-07-19] MEDS: NYSTATIN OINTMENT 15 GM TUBE TP SCH ×2 (09:23→21:06)
[2022-07-19] MEDS: LORAZEPAM 1 MG TABLET GT PRN ×2 (09:24→21:00)
[2022-07-19] MEDS: HYDROCODONE/APAP 10-325 MG TABLET GT PRN ×2 (09:25→17:43)
[2022-07-19] MEDS: SERTRALINE HCL 50 MG TABLET GT SCH (13:00)
[2022-07-19] MEDS: hydrOXYzine HCL 25 MG TABLET GT SCH (21:05)
[2022-07-19] MEDS: ATORVASTATIN 20 MG TABLET GT SCH (21:06)
[2022-07-19] MEDS: MELATONIN 3 MG TABLET GT SCH (21:06)
[2022-07-19 21:35] VITALS: TEMP 98.1
[2022-07-20] MEDS: IPRATROPIUM BROMIDE 0.5 MG/2.5 ML NEBU NEB SCH ×4 (01:59→19:17)
[2022-07-20] MEDS: RILUZOLE 50 MG TAB GT SCH ×2 (06:17→17:27)
[2022-07-20] MEDS: OMEPRAZOLE 20 MG CAPSULE.DR GT SCH (06:17)
[2022-07-20] MEDS: GABAPENTIN 300 MG/6 ML GT SCH ×3 (06:17→20:33)
[2022-07-20] MEDS: HYDROGEN PEROXIDE 3% 118 ML BOTTLE TP SCH ×2 (07:40→21:00)
[2022-07-20 08:00] VITALS: TEMP 98.8
[2022-07-20] MEDS: LORATADINE 10 MG TABLET GT SCH (09:13)
[2022-07-20] MEDS: OLOPATADINE 0.1% OPHT DROP 5 ML BOTTLE EACHEYE SCH ×2 (09:13→17:27)
[2022-07-20] MEDS: BACLOFEN 20 MG TABLET GT SCH ×3 (09:14→17:27)
[2022-07-20] MEDS: DOCUSATE SODIUM 100 MG/10 ML LIQUID UDC GT SCH ×2 (09:14→20:32)
[2022-07-20] MEDS: FLUOXETINE HCL 20 MG CAPSULE GT SCH (09:15)
[2022-07-20] MEDS: CHLORHEXIDINE GLUCONATE 15 ML MOUTHWASH MM SCH ×2 (09:16→17:27)
[2022-07-20] MEDS: FLUTICASONE PROP NASAL SPRAY 16 GM BOTTLE NS SCH (09:16)
[2022-07-20] MEDS: DICLOFENAC SODIUM 100 GM GEL..GRAM. TP SCH ×2 (09:17→20:33)
[2022-07-20] MEDS: ENOXAPARIN SODIUM 40 MG/0.4 ML DISP.SYRIN SQ SCH (09:17)
[2022-07-20] MEDS: REMEDY ESSENTIAL ZINC PASTE 113 GM TP SCH ×2 (09:17→20:33)
[2022-07-20] MEDS: LORAZEPAM 1 MG TABLET GT PRN ×2 (09:18→20:40)
[2022-07-20] MEDS: HYDROCODONE/APAP 10-325 MG TABLET GT PRN ×3 (09:18→17:38)
[2022-07-20] MEDS: SERTRALINE HCL 50 MG TABLET GT SCH (12:00)
[2022-07-20] MEDS: hydrOXYzine HCL 25 MG TABLET GT SCH (20:32)
[2022-07-20] MEDS: ATORVASTATIN 20 MG TABLET GT SCH (20:32)
[2022-07-20] MEDS: MELATONIN 3 MG TABLET GT SCH (20:33)
[2022-07-20 21:40] VITALS: TEMP 98.7
[2022-07-21] MEDS: IPRATROPIUM BROMIDE 0.5 MG/2.5 ML NEBU NEB SCH ×4 (01:29→20:15)
[2022-07-21] MEDS: RILUZOLE 50 MG TAB GT SCH ×2 (06:32→17:32)
[2022-07-21] MEDS: OMEPRAZOLE 20 MG CAPSULE.DR GT SCH (06:32)
[2022-07-21] MEDS: GABAPENTIN 300 MG/6 ML GT SCH ×3 (06:32→21:15)
[2022-07-21] MEDS: JEVITY 1.2 1000 ML LIQUID GT PRN (06:36)
[2022-07-21 08:00] VITALS: TEMP 99
[2022-07-21] MEDS: HYDROGEN PEROXIDE 3% 118 ML BOTTLE TP SCH ×2 (09:06→20:51)
[2022-07-21] MEDS: HYDROCODONE/APAP 10-325 MG TABLET GT PRN ×3 (09:08→17:33)
[2022-07-21] MEDS: OLOPATADINE 0.1% OPHT DROP 5 ML BOTTLE EACHEYE SCH ×2 (09:08→17:32)
[2022-07-21] MEDS: FLUOXETINE HCL 20 MG CAPSULE GT SCH (09:09)
[2022-07-21] MEDS: LORATADINE 10 MG TABLET GT SCH (09:09)
[2022-07-21] MEDS: DOCUSATE SODIUM 100 MG/10 ML LIQUID UDC GT SCH ×2 (09:09→21:15)
[2022-07-21] MEDS: BACLOFEN 20 MG TABLET GT SCH ×3 (09:09→17:32)
[2022-07-21] MEDS: ENOXAPARIN SODIUM 40 MG/0.4 ML DISP.SYRIN SQ SCH (09:10)
[2022-07-21] MEDS: CHLORHEXIDINE GLUCONATE 15 ML MOUTHWASH MM SCH ×2 (09:10→17:32)
[2022-07-21] MEDS: FLUTICASONE PROP NASAL SPRAY 16 GM BOTTLE NS SCH (09:10)
[2022-07-21] MEDS: REMEDY ESSENTIAL ZINC PASTE 113 GM TP SCH ×2 (09:11→21:15)
[2022-07-21] MEDS: DICLOFENAC SODIUM 100 GM GEL..GRAM. TP SCH ×2 (09:11→21:15)
[2022-07-21] MEDS: SERTRALINE HCL 50 MG TABLET GT SCH (12:00)
[2022-07-21 20:26] VITALS: TEMP 98.5
[2022-07-21] MEDS: LORAZEPAM 1 MG TABLET GT PRN (21:15)
[2022-07-21] MEDS: MELATONIN 3 MG TABLET GT SCH (21:15)
[2022-07-21] MEDS: hydrOXYzine HCL 25 MG TABLET GT SCH (21:15)
[2022-07-21] MEDS: ATORVASTATIN 20 MG TABLET GT SCH (21:15)
[2022-07-22] MEDS: IPRATROPIUM BROMIDE 0.5 MG/2.5 ML NEBU NEB SCH ×4 (00:35→19:31)
[2022-07-22] MEDS: GABAPENTIN 300 MG/6 ML GT SCH ×3 (05:09→21:18)
[2022-07-22] MEDS: OMEPRAZOLE 20 MG CAPSULE.DR GT SCH (05:09)
[2022-07-22] MEDS: RILUZOLE 50 MG TAB GT SCH ×2 (05:09→18:10)
[2022-07-22] MEDS: HYDROGEN PEROXIDE 3% 118 ML BOTTLE TP SCH ×2 (07:45→19:28)
[2022-07-22 08:10] VITALS: TEMP 98.6
[2022-07-22] MEDS: FLUOXETINE HCL 20 MG CAPSULE GT SCH (09:11)
[2022-07-22] MEDS: BACLOFEN 20 MG TABLET GT SCH ×3 (09:12→17:00)
[2022-07-22] MEDS: OLOPATADINE 0.1% OPHT DROP 5 ML BOTTLE EACHEYE SCH ×2 (09:13→17:00)
[2022-07-22] MEDS: DOCUSATE SODIUM 100 MG/10 ML LIQUID UDC GT SCH ×2 (09:17→21:18)
[2022-07-22] MEDS: CHLORHEXIDINE GLUCONATE 15 ML MOUTHWASH MM SCH ×2 (09:19→17:00)
[2022-07-22] MEDS: FLUTICASONE PROP NASAL SPRAY 16 GM BOTTLE NS SCH (09:19)
[2022-07-22] MEDS: LORATADINE 10 MG TABLET GT SCH (09:20)
[2022-07-22] MEDS: ENOXAPARIN SODIUM 40 MG/0.4 ML DISP.SYRIN SQ SCH (09:22)
[2022-07-22] MEDS: DICLOFENAC SODIUM 100 GM GEL..GRAM. TP SCH ×2 (09:23→21:18)
[2022-07-22] MEDS: REMEDY ESSENTIAL ZINC PASTE 113 GM TP SCH ×2 (09:23→21:18)
[2022-07-22] MEDS: HYDROCODONE/APAP 10-325 MG TABLET GT PRN (09:58)
[2022-07-22] MEDS: LORAZEPAM 1 MG TABLET GT PRN ×2 (11:16→21:00)
[2022-07-22] MEDS ORDERED: HYDROMORPHONE HCL 2 MG TABLET GT PRN (12:00)
[2022-07-22] MEDS: SERTRALINE HCL 50 MG TABLET GT SCH (12:21)
[2022-07-22] MEDS ORDERED: HYDROCODONE/APAP 10-325 MG TABLET GT PRN (18:30)
[2022-07-22] MEDS: MELATONIN 3 MG TABLET GT SCH (21:18)
[2022-07-22] MEDS: hydrOXYzine HCL 25 MG TABLET GT SCH (21:18)
[2022-07-22 21:45] VITALS: TEMP 99
[2022-07-23] MEDS: IPRATROPIUM BROMIDE 0.5 MG/2.5 ML NEBU NEB SCH ×4 (02:05→18:54)
[2022-07-23] MEDS: JEVITY 1.2 1000 ML LIQUID GT PRN (03:03)
[2022-07-23] MEDS: ACETAMINOPHEN 650 MG/20 ML UDC- SA PATIENTS-PAIN ONLY GT PRN ×3 (03:05→18:19)
[2022-07-23] MEDS: OMEPRAZOLE 20 MG CAPSULE.DR GT SCH (05:45)
[2022-07-23] MEDS: GABAPENTIN 300 MG/6 ML GT SCH ×3 (05:45→20:56)
[2022-07-23] MEDS: RILUZOLE 50 MG TAB GT SCH ×2 (05:45→18:14)
[2022-07-23] MEDS: HYDROGEN PEROXIDE 3% 118 ML BOTTLE TP SCH ×2 (07:45→18:49)
[2022-07-23 07:48] VITALS: TEMP 97.4
[2022-07-23] MEDS: OLOPATADINE 0.1% OPHT DROP 5 ML BOTTLE EACHEYE SCH ×2 (09:30→17:00)
[2022-07-23] MEDS: LORATADINE 10 MG TABLET GT SCH (09:30)
[2022-07-23] MEDS: DOCUSATE SODIUM 100 MG/10 ML LIQUID UDC GT SCH ×2 (09:31→20:56)
[2022-07-23] MEDS: CHLORHEXIDINE GLUCONATE 15 ML MOUTHWASH MM SCH ×2 (09:32→17:00)
[2022-07-23] MEDS: BACLOFEN 20 MG TABLET GT SCH ×3 (09:32→17:00)
[2022-07-23] MEDS: FLUTICASONE PROP NASAL SPRAY 16 GM BOTTLE NS SCH (09:32)
[2022-07-23] MEDS: FLUOXETINE HCL 20 MG CAPSULE GT SCH (09:32)
[2022-07-23] MEDS: DICLOFENAC SODIUM 100 GM GEL..GRAM. TP SCH ×2 (09:33→20:56)
[2022-07-23] MEDS: ENOXAPARIN SODIUM 40 MG/0.4 ML DISP.SYRIN SQ SCH (09:33)
[2022-07-23] MEDS: REMEDY ESSENTIAL ZINC PASTE 113 GM TP SCH ×2 (09:33→20:56)
[2022-07-23] MEDS: HYDROMORPHONE HCL 2 MG TABLET GT PRN ×2 (10:04→14:32)
[2022-07-23] MEDS: SERTRALINE HCL 50 MG TABLET GT SCH (12:00)
[2022-07-23] MEDS: MAG HYDROX/AL HYDROX/SIMETH 30 ML LIQUID UDC GT PRN (12:03)
[2022-07-23] MEDS: POLYVINYL ALCOHOL OPHT DROPS 15 ML BOTTLE EACHEYE PRN (18:15)
[2022-07-23 20:00] VITALS: TEMP 98.3
[2022-07-23] MEDS: MELATONIN 3 MG TABLET GT SCH (20:56)
[2022-07-23] MEDS: LORAZEPAM 1 MG TABLET GT PRN (20:56)
[2022-07-23] MEDS: hydrOXYzine HCL 25 MG TABLET GT SCH (20:56)
[2022-07-24] MEDS: IPRATROPIUM BROMIDE 0.5 MG/2.5 ML NEBU NEB SCH ×4 (01:45→19:15)
[2022-07-24] MEDS: LORAZEPAM 1 MG TABLET GT PRN ×2 (03:05→21:00)
[2022-07-24] MEDS: JEVITY 1.2 1000 ML LIQUID GT PRN (03:05)
[2022-07-24] MEDS: OMEPRAZOLE 20 MG CAPSULE.DR GT SCH (05:25)
[2022-07-24] MEDS: GABAPENTIN 300 MG/6 ML GT SCH ×3 (05:25→21:07)
[2022-07-24] MEDS: RILUZOLE 50 MG TAB GT SCH ×2 (05:25→18:28)
[2022-07-24 07:50] VITALS: TEMP 98.2
[2022-07-24] MEDS: HYDROGEN PEROXIDE 3% 118 ML BOTTLE TP SCH ×2 (08:58→19:15)
[2022-07-24] MEDS: DOCUSATE SODIUM 100 MG/10 ML LIQUID UDC GT SCH ×2 (09:00→21:07)
[2022-07-24] MEDS: OLOPATADINE 0.1% OPHT DROP 5 ML BOTTLE EACHEYE SCH ×2 (09:00→17:00)
[2022-07-24] MEDS: LORATADINE 10 MG TABLET GT SCH (09:49)
[2022-07-24] MEDS: BACLOFEN 20 MG TABLET GT SCH ×3 (09:50→17:00)
[2022-07-24] MEDS: FLUOXETINE HCL 20 MG CAPSULE GT SCH (09:50)
[2022-07-24] MEDS: CHLORHEXIDINE GLUCONATE 15 ML MOUTHWASH MM SCH ×2 (09:51→17:00)
[2022-07-24] MEDS: FLUTICASONE PROP NASAL SPRAY 16 GM BOTTLE NS SCH (09:52)
[2022-07-24] MEDS: ENOXAPARIN SODIUM 40 MG/0.4 ML DISP.SYRIN SQ SCH (09:53)
[2022-07-24] MEDS: REMEDY ESSENTIAL ZINC PASTE 113 GM TP SCH ×2 (09:54→21:08)
[2022-07-24] MEDS: DICLOFENAC SODIUM 100 GM GEL..GRAM. TP SCH ×2 (09:54→21:07)
[2022-07-24] MEDS: HYDROMORPHONE HCL 2 MG TABLET GT PRN ×2 (09:59→18:34)
[2022-07-24] MEDS: SERTRALINE HCL 50 MG TABLET GT SCH (12:04)
[2022-07-24] MEDS: hydrOXYzine HCL 25 MG TABLET GT SCH (21:07)
[2022-07-24] MEDS: MELATONIN 3 MG TABLET GT SCH (21:07)
[2022-07-24 22:29] VITALS: TEMP 98.6
[2022-07-25] MEDS: IPRATROPIUM BROMIDE 0.5 MG/2.5 ML NEBU NEB SCH ×4 (00:49→20:26)
[2022-07-25] MEDS: RILUZOLE 50 MG TAB GT SCH ×2 (05:20→18:17)
[2022-07-25] MEDS: JEVITY 1.2 1000 ML LIQUID GT PRN (05:20)
[2022-07-25] MEDS: OMEPRAZOLE 20 MG CAPSULE.DR GT SCH (05:20)
[2022-07-25] MEDS: GABAPENTIN 300 MG/6 ML GT SCH ×4 (05:20→22:00)
[2022-07-25] MEDS: ACETAMINOPHEN 650 MG/20 ML UDC- SA PATIENTS-PAIN ONLY GT PRN (05:22)
[2022-07-25] MEDS: LORAZEPAM 1 MG TABLET GT PRN ×2 (05:30→22:00)
[2022-07-25] MEDS: HYDROGEN PEROXIDE 3% 118 ML BOTTLE TP SCH ×2 (07:38→21:00)
[2022-07-25 08:00] VITALS: TEMP 98.4
[2022-07-25] MEDS: REMEDY ESSENTIAL ZINC PASTE 113 GM TP SCH ×2 (09:00→21:00)
[2022-07-25] MEDS: DICLOFENAC SODIUM 100 GM GEL..GRAM. TP SCH ×2 (09:00→21:58)
[2022-07-25] MEDS: FLUOXETINE HCL 20 MG CAPSULE GT SCH (09:00)
[2022-07-25] MEDS: LORATADINE 10 MG TABLET GT SCH (09:00)
[2022-07-25] MEDS: FLUTICASONE PROP NASAL SPRAY 16 GM BOTTLE NS SCH (09:00)
[2022-07-25] MEDS: CHLORHEXIDINE GLUCONATE 15 ML MOUTHWASH MM SCH ×2 (09:00→16:52)
[2022-07-25] MEDS: ENOXAPARIN SODIUM 40 MG/0.4 ML DISP.SYRIN SQ SCH (09:00)
[2022-07-25] MEDS: DOCUSATE SODIUM 100 MG/10 ML LIQUID UDC GT SCH ×2 (09:00→21:57)
[2022-07-25] MEDS: OLOPATADINE 0.1% OPHT DROP 5 ML BOTTLE EACHEYE SCH ×2 (09:00→17:00)
[2022-07-25] MEDS: BACLOFEN 20 MG TABLET GT SCH ×3 (09:00→16:52)
[2022-07-25] MEDS: HYDROMORPHONE HCL 2 MG TABLET GT PRN ×2 (10:25→18:21)
[2022-07-25] MEDS: SERTRALINE HCL 50 MG TABLET GT SCH (12:00)
[2022-07-25 21:00] VITALS: TEMP 99
[2022-07-25] MEDS: MELATONIN 3 MG TABLET GT SCH (21:53)
[2022-07-25] MEDS: hydrOXYzine HCL 25 MG TABLET GT SCH (21:57)
[2022-07-26] MEDS: IPRATROPIUM BROMIDE 0.5 MG/2.5 ML NEBU NEB SCH ×4 (01:47→19:21)
[2022-07-26] MEDS: OMEPRAZOLE 20 MG CAPSULE.DR GT SCH (05:32)
[2022-07-26] MEDS: LORAZEPAM 1 MG TABLET GT PRN (05:34)
[2022-07-26] MEDS: RILUZOLE 50 MG TAB GT SCH ×2 (06:00→17:14)
[2022-07-26 08:00] VITALS: TEMP 98.7
[2022-07-26] MEDS: REMEDY ESSENTIAL ZINC PASTE 113 GM TP SCH ×2 (09:00→21:31)
[2022-07-26] MEDS: DOCUSATE SODIUM 100 MG/10 ML LIQUID UDC GT SCH ×2 (09:00→21:31)
[2022-07-26] MEDS: CHLORHEXIDINE GLUCONATE 15 ML MOUTHWASH MM SCH ×2 (09:00→17:14)
[2022-07-26] MEDS: ENOXAPARIN SODIUM 40 MG/0.4 ML DISP.SYRIN SQ SCH (09:00)
[2022-07-26] MEDS: DICLOFENAC SODIUM 100 GM GEL..GRAM. TP SCH ×2 (09:00→21:31)
[2022-07-26] MEDS: OLOPATADINE 0.1% OPHT DROP 5 ML BOTTLE EACHEYE SCH ×2 (09:00→17:14)
[2022-07-26] MEDS: FLUOXETINE HCL 20 MG CAPSULE GT SCH (09:00)
[2022-07-26] MEDS: FLUTICASONE PROP NASAL SPRAY 16 GM BOTTLE NS SCH (09:00)
[2022-07-26] MEDS: LORATADINE 10 MG TABLET GT SCH (09:00)
[2022-07-26] MEDS: BACLOFEN 20 MG TABLET GT SCH ×3 (09:00→17:14)
[2022-07-26] MEDS: HYDROGEN PEROXIDE 3% 118 ML BOTTLE TP SCH ×2 (09:08→19:21)
[2022-07-26] MEDS: HYDROMORPHONE HCL 2 MG TABLET GT PRN ×2 (10:34→17:15)
[2022-07-26] MEDS: SERTRALINE HCL 50 MG TABLET GT SCH (12:36)
[2022-07-26] MEDS: GABAPENTIN 300 MG/6 ML GT SCH ×2 (14:19→21:31)
[2022-07-26 20:10] VITALS: TEMP 98.5
[2022-07-26] MEDS: hydrOXYzine HCL 25 MG TABLET GT SCH (21:31)
[2022-07-26] MEDS: MELATONIN 3 MG TABLET GT SCH (21:31)
[2022-07-27] MEDS: IPRATROPIUM BROMIDE 0.5 MG/2.5 ML NEBU NEB SCH ×4 (01:40→19:27)
[2022-07-27] MEDS: GABAPENTIN 300 MG/6 ML GT SCH ×3 (05:58→20:53)
[2022-07-27] MEDS: OMEPRAZOLE 20 MG CAPSULE.DR GT SCH (05:58)
[2022-07-27] MEDS: RILUZOLE 50 MG TAB GT SCH ×2 (05:58→17:51)
[2022-07-27 08:00] VITALS: TEMP 98.8
[2022-07-27] MEDS: HYDROGEN PEROXIDE 3% 118 ML BOTTLE TP SCH ×2 (08:08→21:00)
[2022-07-27] MEDS: DOCUSATE SODIUM 100 MG/10 ML LIQUID UDC GT SCH ×2 (09:26→20:52)
[2022-07-27] MEDS: LORATADINE 10 MG TABLET GT SCH (09:26)
[2022-07-27] MEDS: OLOPATADINE 0.1% OPHT DROP 5 ML BOTTLE EACHEYE SCH ×2 (09:26→17:51)
[2022-07-27] MEDS: BACLOFEN 20 MG TABLET GT SCH ×3 (09:27→17:51)
[2022-07-27] MEDS: CHLORHEXIDINE GLUCONATE 15 ML MOUTHWASH MM SCH ×2 (09:27→17:51)
[2022-07-27] MEDS: HYDROMORPHONE HCL 2 MG TABLET GT PRN ×2 (09:27→17:51)
[2022-07-27] MEDS: DICLOFENAC SODIUM 100 GM GEL..GRAM. TP SCH ×2 (09:27→20:53)
[2022-07-27] MEDS: FLUTICASONE PROP NASAL SPRAY 16 GM BOTTLE NS SCH (09:27)
[2022-07-27] MEDS: FLUOXETINE HCL 20 MG CAPSULE GT SCH (09:27)
[2022-07-27] MEDS: REMEDY ESSENTIAL ZINC PASTE 113 GM TP SCH ×2 (09:27→20:53)
[2022-07-27] MEDS: ENOXAPARIN SODIUM 40 MG/0.4 ML DISP.SYRIN SQ SCH (09:41)
[2022-07-27] MEDS: SERTRALINE HCL 50 MG TABLET GT SCH (11:51)
[2022-07-27] MEDS: LORAZEPAM 1 MG TABLET GT PRN ×2 (13:14→20:53)
[2022-07-27 20:33] VITALS: TEMP 98.7
[2022-07-27] MEDS: hydrOXYzine HCL 25 MG TABLET GT SCH (20:52)
[2022-07-27] MEDS: MELATONIN 3 MG TABLET GT SCH (20:53)
[2022-07-28] MEDS: IPRATROPIUM BROMIDE 0.5 MG/2.5 ML NEBU NEB SCH ×4 (01:57→19:23)
[2022-07-28] MEDS: ACETAMINOPHEN 650 MG/20 ML UDC- SA PATIENTS-PAIN ONLY GT PRN (05:00)
[2022-07-28] MEDS: GABAPENTIN 300 MG/6 ML GT SCH ×3 (06:34→20:52)
[2022-07-28] MEDS: RILUZOLE 50 MG TAB GT SCH ×2 (06:34→18:10)
[2022-07-28] MEDS: JEVITY 1.2 1000 ML LIQUID GT PRN (06:34)
[2022-07-28] MEDS: OMEPRAZOLE 20 MG CAPSULE.DR GT SCH (06:34)
[2022-07-28 07:38] VITALS: TEMP 98.2
[2022-07-28] MEDS: HYDROGEN PEROXIDE 3% 118 ML BOTTLE TP SCH ×2 (09:13→19:23)
[2022-07-28] MEDS: OLOPATADINE 0.1% OPHT DROP 5 ML BOTTLE EACHEYE SCH ×2 (09:19→17:00)
[2022-07-28] MEDS: LORATADINE 10 MG TABLET GT SCH (09:19)
[2022-07-28] MEDS: BACLOFEN 20 MG TABLET GT SCH ×3 (09:20→17:00)
[2022-07-28] MEDS: CHLORHEXIDINE GLUCONATE 15 ML MOUTHWASH MM SCH ×2 (09:20→17:00)
[2022-07-28] MEDS: FLUTICASONE PROP NASAL SPRAY 16 GM BOTTLE NS SCH (09:20)
[2022-07-28] MEDS: DOCUSATE SODIUM 100 MG/10 ML LIQUID UDC GT SCH ×2 (09:20→20:52)
[2022-07-28] MEDS: FLUOXETINE HCL 20 MG CAPSULE GT SCH (09:20)
[2022-07-28] MEDS: ENOXAPARIN SODIUM 40 MG/0.4 ML DISP.SYRIN SQ SCH (09:21)
[2022-07-28] MEDS: REMEDY ESSENTIAL ZINC PASTE 113 GM TP SCH ×2 (09:22→20:53)
[2022-07-28] MEDS: DICLOFENAC SODIUM 100 GM GEL..GRAM. TP SCH ×2 (09:22→20:52)
[2022-07-28] MEDS: HYDROMORPHONE HCL 2 MG TABLET GT PRN ×3 (09:22→17:45)
[2022-07-28] MEDS: SERTRALINE HCL 50 MG TABLET GT SCH (12:00)
[2022-07-28 20:00] VITALS: TEMP 98.6
[2022-07-28] MEDS: MELATONIN 3 MG TABLET GT SCH (20:52)
[2022-07-28] MEDS: hydrOXYzine HCL 25 MG TABLET GT SCH (20:52)
[2022-07-28] MEDS: LORAZEPAM 1 MG TABLET GT PRN (20:53)
[2022-07-29] MEDS: IPRATROPIUM BROMIDE 0.5 MG/2.5 ML NEBU NEB SCH ×4 (01:30→19:30)
[2022-07-29] MEDS: OMEPRAZOLE 20 MG CAPSULE.DR GT SCH (06:26)
[2022-07-29] MEDS: JEVITY 1.2 1000 ML LIQUID GT PRN (06:26)
[2022-07-29] MEDS: RILUZOLE 50 MG TAB GT SCH ×2 (06:26→18:05)
[2022-07-29] MEDS: GABAPENTIN 300 MG/6 ML GT SCH ×3 (06:26→20:40)
[2022-07-29 07:41] VITALS: TEMP 98.2
[2022-07-29] MEDS: HYDROGEN PEROXIDE 3% 118 ML BOTTLE TP SCH ×2 (08:14→20:40)
[2022-07-29] MEDS: FLUOXETINE HCL 20 MG CAPSULE GT SCH (09:00)
[2022-07-29] MEDS: DICLOFENAC SODIUM 100 GM GEL..GRAM. TP SCH ×2 (09:00→20:40)
[2022-07-29] MEDS: ENOXAPARIN SODIUM 40 MG/0.4 ML DISP.SYRIN SQ SCH (09:00)
[2022-07-29] MEDS: FLUTICASONE PROP NASAL SPRAY 16 GM BOTTLE NS SCH (09:00)
[2022-07-29] MEDS: CHLORHEXIDINE GLUCONATE 15 ML MOUTHWASH MM SCH ×2 (09:00→16:42)
[2022-07-29] MEDS: REMEDY ESSENTIAL ZINC PASTE 113 GM TP SCH ×2 (09:00→20:41)
[2022-07-29] MEDS: LORATADINE 10 MG TABLET GT SCH (09:00)
[2022-07-29] MEDS: DOCUSATE SODIUM 100 MG/10 ML LIQUID UDC GT SCH ×2 (09:00→20:36)
[2022-07-29] MEDS: OLOPATADINE 0.1% OPHT DROP 5 ML BOTTLE EACHEYE SCH ×2 (09:00→16:36)
[2022-07-29] MEDS: BACLOFEN 20 MG TABLET GT SCH ×3 (09:00→16:42)
[2022-07-29] MEDS: HYDROMORPHONE HCL 2 MG TABLET GT PRN ×2 (10:54→18:08)
[2022-07-29] MEDS: SERTRALINE HCL 50 MG TABLET GT SCH (12:04)
[2022-07-29] MEDS: LORAZEPAM 1 MG TABLET GT PRN ×2 (13:47→20:41)
[2022-07-29 20:00] VITALS: TEMP 97.9
[2022-07-29] MEDS: hydrOXYzine HCL 25 MG TABLET GT SCH (20:36)
[2022-07-29] MEDS: MELATONIN 3 MG TABLET GT SCH (20:40)
[2022-07-30] MEDS: IPRATROPIUM BROMIDE 0.5 MG/2.5 ML NEBU NEB SCH ×4 (01:35→19:16)
[2022-07-30] MEDS: ACETAMINOPHEN 650 MG/20 ML UDC- SA PATIENTS-PAIN ONLY GT PRN (02:51)
[2022-07-30] MEDS: GABAPENTIN 300 MG/6 ML GT SCH ×3 (05:13→21:11)
[2022-07-30] MEDS: OMEPRAZOLE 20 MG CAPSULE.DR GT SCH (05:13)
[2022-07-30] MEDS: RILUZOLE 50 MG TAB GT SCH ×2 (05:13→17:55)
[2022-07-30 07:34] VITALS: TEMP 96.1
[2022-07-30] MEDS: HYDROGEN PEROXIDE 3% 118 ML BOTTLE TP SCH ×2 (07:50→21:43)
[2022-07-30] MEDS: HYDROMORPHONE HCL 2 MG TABLET GT PRN ×2 (09:30→14:45)
[2022-07-30] MEDS: FLUOXETINE HCL 20 MG CAPSULE GT SCH (09:48)
[2022-07-30] MEDS: LORATADINE 10 MG TABLET GT SCH (09:48)
[2022-07-30] MEDS: DOCUSATE SODIUM 100 MG/10 ML LIQUID UDC GT SCH ×2 (09:48→21:06)
[2022-07-30] MEDS: BACLOFEN 20 MG TABLET GT SCH ×3 (09:48→17:55)
[2022-07-30] MEDS: OLOPATADINE 0.1% OPHT DROP 5 ML BOTTLE EACHEYE SCH ×2 (09:48→16:53)
[2022-07-30] MEDS: DICLOFENAC SODIUM 100 GM GEL..GRAM. TP SCH ×2 (09:49→21:10)
[2022-07-30] MEDS: CHLORHEXIDINE GLUCONATE 15 ML MOUTHWASH MM SCH ×2 (09:49→16:53)
[2022-07-30] MEDS: FLUTICASONE PROP NASAL SPRAY 16 GM BOTTLE NS SCH (09:49)
[2022-07-30] MEDS: REMEDY ESSENTIAL ZINC PASTE 113 GM TP SCH ×2 (09:49→21:10)
[2022-07-30] MEDS: ENOXAPARIN SODIUM 40 MG/0.4 ML DISP.SYRIN SQ SCH (09:50)
[2022-07-30] MEDS: SERTRALINE HCL 50 MG TABLET GT SCH (12:55)
[2022-07-30] MEDS: LORAZEPAM 1 MG TABLET GT PRN ×2 (13:08→21:11)
[2022-07-30 21:00] VITALS: TEMP 98.4
[2022-07-30] MEDS: hydrOXYzine HCL 25 MG TABLET GT SCH (21:05)
[2022-07-30] MEDS: MELATONIN 3 MG TABLET GT SCH (21:09)
[2022-07-31] MEDS: JEVITY 1.2 1000 ML LIQUID GT PRN (01:05)
[2022-07-31] MEDS: IPRATROPIUM BROMIDE 0.5 MG/2.5 ML NEBU NEB SCH ×4 (01:21→19:40)
[2022-07-31] MEDS: GABAPENTIN 300 MG/6 ML GT SCH ×3 (06:05→21:18)
[2022-07-31] MEDS: OMEPRAZOLE 20 MG CAPSULE.DR GT SCH (06:05)
[2022-07-31] MEDS: RILUZOLE 50 MG TAB GT SCH ×2 (06:05→18:13)
[2022-07-31 08:00] VITALS: TEMP 98.2
[2022-07-31] MEDS: ENOXAPARIN SODIUM 40 MG/0.4 ML DISP.SYRIN SQ SCH (09:08)
[2022-07-31] MEDS: DOCUSATE SODIUM 100 MG/10 ML LIQUID UDC GT SCH ×2 (09:09→21:10)
[2022-07-31] MEDS: LORATADINE 10 MG TABLET GT SCH (09:09)
[2022-07-31] MEDS: BACLOFEN 20 MG TABLET GT SCH ×3 (09:09→17:00)
[2022-07-31] MEDS: OLOPATADINE 0.1% OPHT DROP 5 ML BOTTLE EACHEYE SCH ×2 (09:09→17:00)
[2022-07-31] MEDS: DICLOFENAC SODIUM 100 GM GEL..GRAM. TP SCH ×2 (09:10→21:10)
[2022-07-31] MEDS: FLUTICASONE PROP NASAL SPRAY 16 GM BOTTLE NS SCH (09:10)
[2022-07-31] MEDS: CHLORHEXIDINE GLUCONATE 15 ML MOUTHWASH MM SCH ×2 (09:10→17:00)
[2022-07-31] MEDS: FLUOXETINE HCL 20 MG CAPSULE GT SCH (09:10)
[2022-07-31] MEDS: HYDROMORPHONE HCL 2 MG TABLET GT PRN ×2 (09:10→18:03)
[2022-07-31] MEDS: REMEDY ESSENTIAL ZINC PASTE 113 GM TP SCH ×2 (09:10→21:10)
[2022-07-31] MEDS: HYDROGEN PEROXIDE 3% 118 ML BOTTLE TP SCH ×2 (09:51→21:00)
[2022-07-31] MEDS: LORAZEPAM 1 MG TABLET GT PRN ×2 (10:35→21:17)
[2022-07-31 11:00] VITALS: O2SAT 99
[2022-07-31] MEDS: SERTRALINE HCL 50 MG TABLET GT SCH (12:51)
[2022-07-31] MEDS: hydrOXYzine HCL 25 MG TABLET GT SCH (21:09)
[2022-07-31] MEDS: MELATONIN 3 MG TABLET GT SCH (21:10)
[2022-07-31 22:55] VITALS: TEMP 98.4
[2022-08-01] MEDS: IPRATROPIUM BROMIDE 0.5 MG/2.5 ML NEBU NEB SCH ×4 (01:35→19:40)
[2022-08-01] MEDS: GABAPENTIN 300 MG/6 ML GT SCH ×3 (06:31→21:55)
[2022-08-01] MEDS: OMEPRAZOLE 20 MG CAPSULE.DR GT SCH (06:31)
[2022-08-01] MEDS: RILUZOLE 50 MG TAB GT SCH ×2 (06:31→17:47)
[2022-08-01] MEDS: ACETAMINOPHEN 650 MG/20 ML UDC- SA PATIENTS-PAIN ONLY GT PRN (06:48)
[2022-08-01] MEDS: HYDROGEN PEROXIDE 3% 118 ML BOTTLE TP SCH ×2 (07:18→20:44)
[2022-08-01 08:05] VITALS: TEMP 98.7
[2022-08-01] MEDS: HYDROMORPHONE HCL 2 MG TABLET GT PRN ×2 (09:00→17:38)
[2022-08-01] MEDS: LORATADINE 10 MG TABLET GT SCH (09:18)
[2022-08-01] MEDS: CHLORHEXIDINE GLUCONATE 15 ML MOUTHWASH MM SCH ×2 (09:18→17:47)
[2022-08-01] MEDS: FLUOXETINE HCL 20 MG CAPSULE GT SCH (09:18)
[2022-08-01] MEDS: BACLOFEN 20 MG TABLET GT SCH ×3 (09:18→17:47)
[2022-08-01] MEDS: REMEDY ESSENTIAL ZINC PASTE 113 GM TP SCH ×2 (09:18→21:28)
[2022-08-01] MEDS: OLOPATADINE 0.1% OPHT DROP 5 ML BOTTLE EACHEYE SCH ×2 (09:18→17:47)
[2022-08-01] MEDS: DOCUSATE SODIUM 100 MG/10 ML LIQUID UDC GT SCH ×2 (09:18→21:55)
[2022-08-01] MEDS: ENOXAPARIN SODIUM 40 MG/0.4 ML DISP.SYRIN SQ SCH (09:18)
[2022-08-01] MEDS: DICLOFENAC SODIUM 100 GM GEL..GRAM. TP SCH ×2 (09:18→21:55)
[2022-08-01] MEDS: FLUTICASONE PROP NASAL SPRAY 16 GM BOTTLE NS SCH (09:18)
[2022-08-01] MEDS: SERTRALINE HCL 50 MG TABLET GT SCH (12:00)
[2022-08-01] MEDS: LORAZEPAM 1 MG TABLET GT PRN ×2 (13:18→21:57)
[2022-08-01] MEDS: hydrOXYzine HCL 25 MG TABLET GT SCH (21:55)
[2022-08-01] MEDS: MELATONIN 3 MG TABLET GT SCH (21:55)
[2022-08-01] MEDS: JEVITY 1.2 1000 ML LIQUID GT PRN (22:42)
[2022-08-01 22:43] VITALS: TEMP 98.4
[2022-08-02] MEDS: IPRATROPIUM BROMIDE 0.5 MG/2.5 ML NEBU NEB SCH ×4 (00:35→19:30)
[2022-08-02] MEDS: OMEPRAZOLE 20 MG CAPSULE.DR GT SCH (06:41)
[2022-08-02] MEDS: GABAPENTIN 300 MG/6 ML GT SCH ×3 (06:41→20:48)
[2022-08-02] MEDS: RILUZOLE 50 MG TAB GT SCH ×2 (06:41→17:41)
[2022-08-02 08:00] VITALS: TEMP 98.4
[2022-08-02] MEDS: HYDROGEN PEROXIDE 3% 118 ML BOTTLE TP SCH ×2 (09:00→19:09)
[2022-08-02] MEDS: LORATADINE 10 MG TABLET GT SCH (09:52)
[2022-08-02] MEDS: OLOPATADINE 0.1% OPHT DROP 5 ML BOTTLE EACHEYE SCH ×2 (09:52→17:40)
[2022-08-02] MEDS: DOCUSATE SODIUM 100 MG/10 ML LIQUID UDC GT SCH ×2 (09:52→20:47)
[2022-08-02] MEDS: BACLOFEN 20 MG TABLET GT SCH ×3 (09:53→17:40)
[2022-08-02] MEDS: FLUOXETINE HCL 20 MG CAPSULE GT SCH (09:53)
[2022-08-02] MEDS: CHLORHEXIDINE GLUCONATE 15 ML MOUTHWASH MM SCH ×2 (09:53→17:40)
[2022-08-02] MEDS: FLUTICASONE PROP NASAL SPRAY 16 GM BOTTLE NS SCH (09:53)
[2022-08-02] MEDS: REMEDY ESSENTIAL ZINC PASTE 113 GM TP SCH ×2 (09:54→20:52)
[2022-08-02] MEDS: DICLOFENAC SODIUM 100 GM GEL..GRAM. TP SCH ×2 (09:54→20:52)
[2022-08-02] MEDS: ENOXAPARIN SODIUM 40 MG/0.4 ML DISP.SYRIN SQ SCH (09:55)
[2022-08-02] MEDS: HYDROMORPHONE HCL 2 MG TABLET GT PRN (12:03)
[2022-08-02] MEDS: SERTRALINE HCL 50 MG TABLET GT SCH (12:05)
[2022-08-02] MEDS: LORAZEPAM 1 MG TABLET GT PRN ×2 (13:15→21:00)
[2022-08-02] MEDS: hydrOXYzine HCL 25 MG TABLET GT SCH (20:47)
[2022-08-02] MEDS: MELATONIN 3 MG TABLET GT SCH (20:51)
[2022-08-02 22:16] VITALS: TEMP 98.3
[2022-08-03] MEDS: IPRATROPIUM BROMIDE 0.5 MG/2.5 ML NEBU NEB SCH ×4 (01:48→19:30)
[2022-08-03] MEDS: JEVITY 1.2 1000 ML LIQUID GT PRN (02:16)
[2022-08-03] MEDS: ACETAMINOPHEN 650 MG/20 ML UDC- SA PATIENTS-PAIN ONLY GT PRN (03:34)
[2022-08-03] MEDS: GABAPENTIN 300 MG/6 ML GT SCH ×3 (05:45→21:20)
[2022-08-03] MEDS: OMEPRAZOLE 20 MG CAPSULE.DR GT SCH (05:45)
[2022-08-03] MEDS: RILUZOLE 50 MG TAB GT SCH ×2 (05:45→17:46)
[2022-08-03 08:00] VITALS: TEMP 99.3
[2022-08-03] MEDS: LORATADINE 10 MG TABLET GT SCH (09:29)
[2022-08-03] MEDS: OLOPATADINE 0.1% OPHT DROP 5 ML BOTTLE EACHEYE SCH ×2 (09:29→17:46)
[2022-08-03] MEDS: DOCUSATE SODIUM 100 MG/10 ML LIQUID UDC GT SCH ×2 (09:29→21:19)
[2022-08-03] MEDS: FLUOXETINE HCL 20 MG CAPSULE GT SCH (09:30)
[2022-08-03] MEDS: FLUTICASONE PROP NASAL SPRAY 16 GM BOTTLE NS SCH (09:30)
[2022-08-03] MEDS: DICLOFENAC SODIUM 100 GM GEL..GRAM. TP SCH ×2 (09:30→21:20)
[2022-08-03] MEDS: BACLOFEN 20 MG TABLET GT SCH ×3 (09:30→17:46)
[2022-08-03] MEDS: CHLORHEXIDINE GLUCONATE 15 ML MOUTHWASH MM SCH ×2 (09:30→17:46)
[2022-08-03] MEDS: REMEDY ESSENTIAL ZINC PASTE 113 GM TP SCH ×2 (09:31→21:20)
[2022-08-03] MEDS: ENOXAPARIN SODIUM 40 MG/0.4 ML DISP.SYRIN SQ SCH (09:32)
[2022-08-03] MEDS: HYDROGEN PEROXIDE 3% 118 ML BOTTLE TP SCH ×2 (09:38→21:00)
[2022-08-03] MEDS: HYDROMORPHONE HCL 2 MG TABLET GT PRN (10:19)
[2022-08-03] MEDS: SERTRALINE HCL 50 MG TABLET GT SCH (12:00)
[2022-08-03] MEDS: ONDANSETRON HCL 4 MG TABLET GT PRN (18:08)
[2022-08-03] MEDS: hydrOXYzine HCL 25 MG TABLET GT SCH (21:19)
[2022-08-03] MEDS: MELATONIN 3 MG TABLET GT SCH (21:20)
[2022-08-03] MEDS: LORAZEPAM 1 MG TABLET GT PRN (21:20)
[2022-08-03 22:11] VITALS: TEMP 98.9
[2022-08-04] MEDS: IPRATROPIUM BROMIDE 0.5 MG/2.5 ML NEBU NEB SCH ×4 (01:42→19:29)
[2022-08-04] MEDS: OMEPRAZOLE 20 MG CAPSULE.DR GT SCH (06:59)
[2022-08-04] MEDS: JEVITY 1.2 1000 ML LIQUID GT PRN (06:59)
[2022-08-04] MEDS: RILUZOLE 50 MG TAB GT SCH ×2 (06:59→18:13)
[2022-08-04] MEDS: GABAPENTIN 300 MG/6 ML GT SCH ×3 (06:59→21:15)
[2022-08-04 08:00] VITALS: TEMP 98.7
[2022-08-04] MEDS: HYDROGEN PEROXIDE 3% 118 ML BOTTLE TP SCH ×2 (08:51→21:04)
[2022-08-04] MEDS: FLUOXETINE HCL 20 MG CAPSULE GT SCH (09:00)
[2022-08-04] MEDS: ENOXAPARIN SODIUM 40 MG/0.4 ML DISP.SYRIN SQ SCH (09:00)
[2022-08-04] MEDS: DOCUSATE SODIUM 100 MG/10 ML LIQUID UDC GT SCH ×2 (09:00→21:15)
[2022-08-04] MEDS: BACLOFEN 20 MG TABLET GT SCH ×3 (09:00→16:56)
[2022-08-04] MEDS: CHLORHEXIDINE GLUCONATE 15 ML MOUTHWASH MM SCH ×2 (09:00→16:56)
[2022-08-04] MEDS: OLOPATADINE 0.1% OPHT DROP 5 ML BOTTLE EACHEYE SCH ×2 (09:00→16:58)
[2022-08-04] MEDS: DICLOFENAC SODIUM 100 GM GEL..GRAM. TP SCH ×2 (09:00→21:16)
[2022-08-04] MEDS: FLUTICASONE PROP NASAL SPRAY 16 GM BOTTLE NS SCH (09:00)
[2022-08-04] MEDS: LORATADINE 10 MG TABLET GT SCH (09:00)
[2022-08-04] MEDS: REMEDY ESSENTIAL ZINC PASTE 113 GM TP SCH ×2 (09:00→21:16)
[2022-08-04] MEDS: HYDROMORPHONE HCL 2 MG TABLET GT PRN ×2 (10:11→18:14)
[2022-08-04] MEDS: SERTRALINE HCL 50 MG TABLET GT SCH (11:55)
[2022-08-04] MEDS: LORAZEPAM 1 MG TABLET GT PRN ×2 (11:56→21:17)
[2022-08-04] MEDS: MELATONIN 3 MG TABLET GT SCH (21:15)
[2022-08-04] MEDS: hydrOXYzine HCL 25 MG TABLET GT SCH (21:15)
[2022-08-04 22:31] VITALS: TEMP 98.3
[2022-08-05] MEDS: IPRATROPIUM BROMIDE 0.5 MG/2.5 ML NEBU NEB SCH ×4 (01:42→19:17)
[2022-08-05] MEDS: RILUZOLE 50 MG TAB GT SCH ×2 (05:43→18:01)
[2022-08-05] MEDS: OMEPRAZOLE 20 MG CAPSULE.DR GT SCH (05:43)
[2022-08-05] MEDS: JEVITY 1.2 1000 ML LIQUID GT PRN (05:43)
[2022-08-05] MEDS: GABAPENTIN 300 MG/6 ML GT SCH ×3 (05:43→21:21)
[2022-08-05 07:43] VITALS: TEMP 98.9
[2022-08-05] MEDS: LORATADINE 10 MG TABLET GT SCH (08:32)
[2022-08-05] MEDS: DOCUSATE SODIUM 100 MG/10 ML LIQUID UDC GT SCH ×2 (08:33→21:21)
[2022-08-05] MEDS: FLUOXETINE HCL 20 MG CAPSULE GT SCH (08:34)
[2022-08-05] MEDS: CHLORHEXIDINE GLUCONATE 15 ML MOUTHWASH MM SCH ×2 (08:34→16:56)
[2022-08-05] MEDS: BACLOFEN 20 MG TABLET GT SCH ×3 (08:34→16:55)
[2022-08-05] MEDS: FLUTICASONE PROP NASAL SPRAY 16 GM BOTTLE NS SCH (08:35)
[2022-08-05] MEDS: DICLOFENAC SODIUM 100 GM GEL..GRAM. TP SCH ×2 (08:36→21:22)
[2022-08-05] MEDS: REMEDY ESSENTIAL ZINC PASTE 113 GM TP SCH ×2 (08:36→21:22)
[2022-08-05] MEDS: ENOXAPARIN SODIUM 40 MG/0.4 ML DISP.SYRIN SQ SCH (08:39)
[2022-08-05] MEDS: HYDROMORPHONE HCL 2 MG TABLET GT PRN ×2 (08:45→17:00)
[2022-08-05] MEDS: MAGNESIUM HYDROXIDE 30 ML LIQUID UDC GT PRN (08:52)
[2022-08-05] MEDS: HYDROGEN PEROXIDE 3% 118 ML BOTTLE TP SCH ×2 (09:00→19:17)
[2022-08-05] MEDS: OLOPATADINE 0.1% OPHT DROP 5 ML BOTTLE EACHEYE SCH ×2 (09:52→16:54)
[2022-08-05] MEDS: SERTRALINE HCL 50 MG TABLET GT SCH (12:31)
[2022-08-05 20:00] VITALS: TEMP 99.1
[2022-08-05] MEDS: LORAZEPAM 1 MG TABLET GT PRN (21:00)
[2022-08-05] MEDS: MELATONIN 3 MG TABLET GT SCH (21:21)
[2022-08-05] MEDS: hydrOXYzine HCL 25 MG TABLET GT SCH (21:21)
[2022-08-05] MEDS: ACETAMINOPHEN 650 MG/20 ML UDC- SA PATIENTS-PAIN ONLY GT PRN (21:22)
[2022-08-06] MEDS: IPRATROPIUM BROMIDE 0.5 MG/2.5 ML NEBU NEB SCH ×4 (01:54→19:16)
[2022-08-06] MEDS: JEVITY 1.2 1000 ML LIQUID GT PRN (03:53)
[2022-08-06] MEDS: RILUZOLE 50 MG TAB GT SCH ×2 (05:01→18:18)
[2022-08-06] MEDS: GABAPENTIN 300 MG/6 ML GT SCH ×3 (05:01→20:37)
[2022-08-06] MEDS: OMEPRAZOLE 20 MG CAPSULE.DR GT SCH (05:01)
[2022-08-06] MEDS: ACETAMINOPHEN 650 MG/20 ML UDC- SA PATIENTS-PAIN ONLY GT PRN ×2 (05:02→17:02)
[2022-08-06] MEDS: HYDROGEN PEROXIDE 3% 118 ML BOTTLE TP SCH ×2 (07:45→19:16)
[2022-08-06] MEDS: DOCUSATE SODIUM 100 MG/10 ML LIQUID UDC GT SCH ×2 (09:00→20:37)
[2022-08-06] MEDS: OLOPATADINE 0.1% OPHT DROP 5 ML BOTTLE EACHEYE SCH ×2 (09:13→17:00)
[2022-08-06] MEDS: LORATADINE 10 MG TABLET GT SCH (09:18)
[2022-08-06] MEDS: BACLOFEN 20 MG TABLET GT SCH ×3 (09:23→16:54)
[2022-08-06] MEDS: CHLORHEXIDINE GLUCONATE 15 ML MOUTHWASH MM SCH ×2 (09:23→16:54)
[2022-08-06] MEDS: FLUOXETINE HCL 20 MG CAPSULE GT SCH (09:23)
[2022-08-06] MEDS: FLUTICASONE PROP NASAL SPRAY 16 GM BOTTLE NS SCH (09:24)
[2022-08-06] MEDS: REMEDY ESSENTIAL ZINC PASTE 113 GM TP SCH ×2 (09:25→20:38)
[2022-08-06] MEDS: DICLOFENAC SODIUM 100 GM GEL..GRAM. TP SCH ×2 (09:25→20:38)
[2022-08-06] MEDS: HYDROMORPHONE HCL 2 MG TABLET GT PRN (09:27)
[2022-08-06] MEDS: ENOXAPARIN SODIUM 40 MG/0.4 ML DISP.SYRIN SQ SCH (09:29)
[2022-08-06 11:03] VITALS: TEMP 98.2
[2022-08-06] MEDS: SERTRALINE HCL 50 MG TABLET GT SCH (12:00)
[2022-08-06] MEDS: LORAZEPAM 1 MG TABLET GT PRN ×2 (13:25→20:38)
[2022-08-06 15:37] VITALS: TEMP 98.2
[2022-08-06] MEDS: hydrOXYzine HCL 25 MG TABLET GT SCH (20:37)
[2022-08-06] MEDS: MELATONIN 3 MG TABLET GT SCH (20:38)
[2022-08-06 21:55] VITALS: TEMP 99.2
[2022-08-07] MEDS: IPRATROPIUM BROMIDE 0.5 MG/2.5 ML NEBU NEB SCH ×4 (01:17→19:21)
[2022-08-07] MEDS: JEVITY 1.2 1000 ML LIQUID GT PRN (03:22)
[2022-08-07] MEDS: RILUZOLE 50 MG TAB GT SCH ×2 (05:30→18:36)
[2022-08-07] MEDS: OMEPRAZOLE 20 MG CAPSULE.DR GT SCH (05:30)
[2022-08-07] MEDS: GABAPENTIN 300 MG/6 ML GT SCH ×3 (05:30→21:00)
[2022-08-07 07:45] VITALS: TEMP 98.3
[2022-08-07] MEDS: FLUTICASONE PROP NASAL SPRAY 16 GM BOTTLE NS SCH (09:00)
[2022-08-07] MEDS: LORATADINE 10 MG TABLET GT SCH (09:00)
[2022-08-07] MEDS: CHLORHEXIDINE GLUCONATE 15 ML MOUTHWASH MM SCH ×2 (09:00→17:36)
[2022-08-07] MEDS: REMEDY ESSENTIAL ZINC PASTE 113 GM TP SCH ×2 (09:00→21:00)
[2022-08-07] MEDS: BACLOFEN 20 MG TABLET GT SCH ×3 (09:00→17:13)
[2022-08-07] MEDS: ENOXAPARIN SODIUM 40 MG/0.4 ML DISP.SYRIN SQ SCH (09:00)
[2022-08-07] MEDS: DICLOFENAC SODIUM 100 GM GEL..GRAM. TP SCH ×2 (09:00→21:00)
[2022-08-07] MEDS: OLOPATADINE 0.1% OPHT DROP 5 ML BOTTLE EACHEYE SCH ×2 (09:00→17:28)
[2022-08-07] MEDS: FLUOXETINE HCL 20 MG CAPSULE GT SCH (09:00)
[2022-08-07] MEDS: DOCUSATE SODIUM 100 MG/10 ML LIQUID UDC GT SCH ×2 (09:00→21:00)
[2022-08-07] MEDS: HYDROGEN PEROXIDE 3% 118 ML BOTTLE TP SCH ×2 (09:24→19:21)
[2022-08-07] MEDS: HYDROMORPHONE HCL 2 MG TABLET GT PRN (10:48)
[2022-08-07] MEDS: SERTRALINE HCL 50 MG TABLET GT SCH (12:50)
[2022-08-07 20:00] VITALS: TEMP 97.8
[2022-08-07] MEDS: hydrOXYzine HCL 25 MG TABLET GT SCH (21:00)
[2022-08-07] MEDS: MELATONIN 3 MG TABLET GT SCH (21:00)
[2022-08-07] MEDS: LORAZEPAM 1 MG TABLET GT PRN (22:30)
[2022-08-08] MEDS: IPRATROPIUM BROMIDE 0.5 MG/2.5 ML NEBU NEB SCH ×4 (01:24→19:30)
[2022-08-08] MEDS: JEVITY 1.2 1000 ML LIQUID GT PRN (02:12)
[2022-08-08] MEDS: GABAPENTIN 300 MG/6 ML GT SCH ×3 (05:30→21:00)
[2022-08-08] MEDS: RILUZOLE 50 MG TAB GT SCH ×2 (05:30→17:43)
[2022-08-08] MEDS: OMEPRAZOLE 20 MG CAPSULE.DR GT SCH (05:30)
[2022-08-08] MEDS: ACETAMINOPHEN 650 MG/20 ML UDC- SA PATIENTS-PAIN ONLY GT PRN (05:31)
[2022-08-08 07:42] VITALS: TEMP 98.4
[2022-08-08] MEDS: ENOXAPARIN SODIUM 40 MG/0.4 ML DISP.SYRIN SQ SCH (08:33)
[2022-08-08] MEDS: HYDROMORPHONE HCL 2 MG TABLET GT PRN ×2 (09:00→17:44)
[2022-08-08] MEDS: FLUOXETINE HCL 20 MG CAPSULE GT SCH (09:22)
[2022-08-08] MEDS: LORATADINE 10 MG TABLET GT SCH (09:22)
[2022-08-08] MEDS: DOCUSATE SODIUM 100 MG/10 ML LIQUID UDC GT SCH ×2 (09:22→21:45)
[2022-08-08] MEDS: FLUTICASONE PROP NASAL SPRAY 16 GM BOTTLE NS SCH (09:22)
[2022-08-08] MEDS: OLOPATADINE 0.1% OPHT DROP 5 ML BOTTLE EACHEYE SCH ×2 (09:22→17:43)
[2022-08-08] MEDS: BACLOFEN 20 MG TABLET GT SCH ×3 (09:22→17:43)
[2022-08-08] MEDS: DICLOFENAC SODIUM 100 GM GEL..GRAM. TP SCH ×2 (09:22→21:00)
[2022-08-08] MEDS: REMEDY ESSENTIAL ZINC PASTE 113 GM TP SCH ×2 (09:22→21:46)
[2022-08-08] MEDS: CHLORHEXIDINE GLUCONATE 15 ML MOUTHWASH MM SCH ×2 (09:22→17:43)
[2022-08-08] MEDS: HYDROGEN PEROXIDE 3% 118 ML BOTTLE TP SCH ×2 (10:02→21:06)
[2022-08-08] MEDS: SERTRALINE HCL 50 MG TABLET GT SCH (12:33)
[2022-08-08] MEDS: LORAZEPAM 1 MG TABLET GT PRN ×2 (12:39→21:59)
[2022-08-08 21:44] VITALS: TEMP 98.5
[2022-08-08] MEDS: hydrOXYzine HCL 25 MG TABLET GT SCH (21:45)
[2022-08-08] MEDS: MELATONIN 3 MG TABLET GT SCH (21:58)
[2022-08-09] MEDS: IPRATROPIUM BROMIDE 0.5 MG/2.5 ML NEBU NEB SCH ×4 (01:49→19:33)
[2022-08-09] MEDS: JEVITY 1.2 1000 ML LIQUID GT PRN (02:33)
[2022-08-09] MEDS: GABAPENTIN 300 MG/6 ML GT SCH ×3 (06:33→21:29)
[2022-08-09] MEDS: RILUZOLE 50 MG TAB GT SCH ×2 (06:34→17:32)
[2022-08-09] MEDS: OMEPRAZOLE 20 MG CAPSULE.DR GT SCH (06:35)
[2022-08-09 07:42] VITALS: TEMP 98.4
[2022-08-09] MEDS: CHLORHEXIDINE GLUCONATE 15 ML MOUTHWASH MM SCH ×2 (09:40→17:31)
[2022-08-09] MEDS: LORATADINE 10 MG TABLET GT SCH (09:40)
[2022-08-09] MEDS: BACLOFEN 20 MG TABLET GT SCH ×3 (09:40→17:31)
[2022-08-09] MEDS: FLUOXETINE HCL 20 MG CAPSULE GT SCH (09:40)
[2022-08-09] MEDS: FLUTICASONE PROP NASAL SPRAY 16 GM BOTTLE NS SCH (09:40)
[2022-08-09] MEDS: OLOPATADINE 0.1% OPHT DROP 5 ML BOTTLE EACHEYE SCH ×2 (09:40→17:31)
[2022-08-09] MEDS: DOCUSATE SODIUM 100 MG/10 ML LIQUID UDC GT SCH ×2 (09:40→21:29)
[2022-08-09] MEDS: ENOXAPARIN SODIUM 40 MG/0.4 ML DISP.SYRIN SQ SCH (09:41)
[2022-08-09] MEDS: DICLOFENAC SODIUM 100 GM GEL..GRAM. TP SCH ×2 (09:42→21:29)
[2022-08-09] MEDS: REMEDY ESSENTIAL ZINC PASTE 113 GM TP SCH ×2 (09:42→21:29)
[2022-08-09] MEDS: HYDROMORPHONE HCL 2 MG TABLET GT PRN ×2 (09:45→17:32)
[2022-08-09] MEDS: HYDROGEN PEROXIDE 3% 118 ML BOTTLE TP SCH ×2 (09:54→21:52)
[2022-08-09] MEDS: LORAZEPAM 1 MG TABLET GT PRN ×2 (12:08→21:30)
[2022-08-09] MEDS: SERTRALINE HCL 50 MG TABLET GT SCH (12:08)
[2022-08-09 21:00] VITALS: TEMP 98.5
[2022-08-09] MEDS: MELATONIN 3 MG TABLET GT SCH (21:29)
[2022-08-09] MEDS: hydrOXYzine HCL 25 MG TABLET GT SCH (21:29)
[2022-08-10] MEDS: JEVITY 1.2 1000 ML LIQUID GT PRN ×2 (00:39→22:22)
[2022-08-10] MEDS: IPRATROPIUM BROMIDE 0.5 MG/2.5 ML NEBU NEB SCH ×4 (01:28→19:00)
[2022-08-10] MEDS: OMEPRAZOLE 20 MG CAPSULE.DR GT SCH (05:14)
[2022-08-10] MEDS: RILUZOLE 50 MG TAB GT SCH ×2 (05:14→17:42)
[2022-08-10] MEDS: GABAPENTIN 300 MG/6 ML GT SCH ×3 (05:14→21:00)
[2022-08-10] MEDS: HYDROGEN PEROXIDE 3% 118 ML BOTTLE TP SCH ×2 (07:32→21:57)
[2022-08-10 08:00] VITALS: TEMP 97.9
[2022-08-10] MEDS: OLOPATADINE 0.1% OPHT DROP 5 ML BOTTLE EACHEYE SCH ×2 (09:36→17:40)
[2022-08-10] MEDS: BACLOFEN 20 MG TABLET GT SCH ×3 (09:37→17:40)
[2022-08-10] MEDS: LORATADINE 10 MG TABLET GT SCH (09:37)
[2022-08-10] MEDS: DOCUSATE SODIUM 100 MG/10 ML LIQUID UDC GT SCH ×2 (09:37→21:00)
[2022-08-10] MEDS: FLUTICASONE PROP NASAL SPRAY 16 GM BOTTLE NS SCH (09:38)
[2022-08-10] MEDS: CHLORHEXIDINE GLUCONATE 15 ML MOUTHWASH MM SCH ×2 (09:38→17:40)
[2022-08-10] MEDS: FLUOXETINE HCL 20 MG CAPSULE GT SCH (09:38)
[2022-08-10] MEDS: ENOXAPARIN SODIUM 40 MG/0.4 ML DISP.SYRIN SQ SCH (09:40)
[2022-08-10] MEDS: DICLOFENAC SODIUM 100 GM GEL..GRAM. TP SCH ×2 (09:44→21:00)
[2022-08-10] MEDS: REMEDY ESSENTIAL ZINC PASTE 113 GM TP SCH ×2 (09:45→21:00)
[2022-08-10] MEDS: HYDROMORPHONE HCL 2 MG TABLET GT PRN ×2 (09:49→18:16)
[2022-08-10] MEDS: SERTRALINE HCL 50 MG TABLET GT SCH (12:53)
[2022-08-10] MEDS: ACETAMINOPHEN 650 MG/20 ML UDC- SA PATIENTS-PAIN ONLY GT PRN (13:06)
[2022-08-10] MEDS: LORAZEPAM 1 MG TABLET GT PRN (13:06)
[2022-08-10 20:00] VITALS: TEMP 98.4
[2022-08-10] MEDS: hydrOXYzine HCL 25 MG TABLET GT SCH (21:00)
[2022-08-10] MEDS: MELATONIN 3 MG TABLET GT SCH (21:00)
[2022-08-11] MEDS: IPRATROPIUM BROMIDE 0.5 MG/2.5 ML NEBU NEB SCH ×4 (01:59→19:30)
[2022-08-11] MEDS: RILUZOLE 50 MG TAB GT SCH ×2 (05:03→17:17)
[2022-08-11] MEDS: GABAPENTIN 300 MG/6 ML GT SCH ×3 (05:03→21:00)
[2022-08-11] MEDS: OMEPRAZOLE 20 MG CAPSULE.DR GT SCH (05:03)
[2022-08-11 07:49] VITALS: TEMP 98.2
[2022-08-11] MEDS: HYDROGEN PEROXIDE 3% 118 ML BOTTLE TP SCH ×2 (08:58→20:30)
[2022-08-11] MEDS: DOCUSATE SODIUM 100 MG/10 ML LIQUID UDC GT SCH ×2 (09:26→21:00)
[2022-08-11] MEDS: OLOPATADINE 0.1% OPHT DROP 5 ML BOTTLE EACHEYE SCH ×2 (09:26→17:17)
[2022-08-11] MEDS: LORATADINE 10 MG TABLET GT SCH (09:26)
[2022-08-11] MEDS: BACLOFEN 20 MG TABLET GT SCH ×3 (09:27→17:17)
[2022-08-11] MEDS: CHLORHEXIDINE GLUCONATE 15 ML MOUTHWASH MM SCH ×2 (09:28→17:17)
[2022-08-11] MEDS: FLUOXETINE HCL 20 MG CAPSULE GT SCH (09:28)
[2022-08-11] MEDS: REMEDY ESSENTIAL ZINC PASTE 113 GM TP SCH ×2 (09:30→21:00)
[2022-08-11] MEDS: DICLOFENAC SODIUM 100 GM GEL..GRAM. TP SCH ×2 (09:30→21:00)
[2022-08-11] MEDS: ENOXAPARIN SODIUM 40 MG/0.4 ML DISP.SYRIN SQ SCH (09:34)
[2022-08-11] MEDS: FLUTICASONE PROP NASAL SPRAY 16 GM BOTTLE NS SCH (09:44)
[2022-08-11] MEDS: HYDROMORPHONE HCL 2 MG TABLET GT PRN ×2 (10:01→17:17)
[2022-08-11] MEDS: SERTRALINE HCL 50 MG TABLET GT SCH (12:34)
[2022-08-11] MEDS: ACETAMINOPHEN 650 MG/20 ML UDC- SA PATIENTS-PAIN ONLY GT PRN (12:35)
[2022-08-11 20:00] VITALS: TEMP 98.4
[2022-08-11] MEDS: MELATONIN 3 MG TABLET GT SCH (21:00)
[2022-08-11] MEDS: hydrOXYzine HCL 25 MG TABLET GT SCH (21:00)
[2022-08-11] MEDS: LORAZEPAM 1 MG TABLET GT PRN (22:00)
[2022-08-11] MEDS: JEVITY 1.2 1000 ML LIQUID GT PRN (22:06)
[2022-08-12] MEDS: IPRATROPIUM BROMIDE 0.5 MG/2.5 ML NEBU NEB SCH ×4 (01:22→19:23)
[2022-08-12] MEDS: OMEPRAZOLE 20 MG CAPSULE.DR GT SCH (05:35)
[2022-08-12] MEDS: GABAPENTIN 300 MG/6 ML GT SCH ×3 (05:35→21:00)
[2022-08-12] MEDS: RILUZOLE 50 MG TAB GT SCH ×2 (05:35→17:40)
[2022-08-12 07:47] VITALS: TEMP 98.3
[2022-08-12] MEDS: OLOPATADINE 0.1% OPHT DROP 5 ML BOTTLE EACHEYE SCH ×2 (08:46→17:40)
[2022-08-12] MEDS: LORATADINE 10 MG TABLET GT SCH (08:47)
[2022-08-12] MEDS: BACLOFEN 20 MG TABLET GT SCH ×3 (08:47→17:40)
[2022-08-12] MEDS: FLUOXETINE HCL 20 MG CAPSULE GT SCH (08:47)
[2022-08-12] MEDS: CHLORHEXIDINE GLUCONATE 15 ML MOUTHWASH MM SCH ×2 (08:47→17:40)
[2022-08-12] MEDS: DOCUSATE SODIUM 100 MG/10 ML LIQUID UDC GT SCH ×2 (08:47→21:00)
[2022-08-12] MEDS: FLUTICASONE PROP NASAL SPRAY 16 GM BOTTLE NS SCH (08:48)
[2022-08-12] MEDS: ENOXAPARIN SODIUM 40 MG/0.4 ML DISP.SYRIN SQ SCH (08:49)
[2022-08-12] MEDS: DICLOFENAC SODIUM 100 GM GEL..GRAM. TP SCH ×2 (08:49→21:00)
[2022-08-12] MEDS: REMEDY ESSENTIAL ZINC PASTE 113 GM TP SCH ×2 (08:49→21:00)
[2022-08-12] MEDS: HYDROMORPHONE HCL 2 MG TABLET GT PRN ×2 (08:50→17:20)
[2022-08-12] MEDS: HYDROGEN PEROXIDE 3% 118 ML BOTTLE TP SCH ×2 (09:00→19:23)
[2022-08-12] MEDS: SERTRALINE HCL 50 MG TABLET GT SCH (12:00)
[2022-08-12] MEDS: LORAZEPAM 1 MG TABLET GT PRN ×2 (13:41→23:00)
[2022-08-12 20:00] VITALS: TEMP 98.2
[2022-08-12] MEDS: MELATONIN 3 MG TABLET GT SCH (21:00)
[2022-08-12] MEDS: hydrOXYzine HCL 25 MG TABLET GT SCH (21:00)
[2022-08-12] MEDS: JEVITY 1.2 1000 ML LIQUID GT PRN (22:20)
[2022-08-13] MEDS: IPRATROPIUM BROMIDE 0.5 MG/2.5 ML NEBU NEB SCH ×4 (01:42→19:08)
[2022-08-13] MEDS: RILUZOLE 50 MG TAB GT SCH ×2 (05:33→17:28)
[2022-08-13] MEDS: OMEPRAZOLE 20 MG CAPSULE.DR GT SCH (05:33)
[2022-08-13] MEDS: GABAPENTIN 300 MG/6 ML GT SCH ×3 (05:33→21:38)
[2022-08-13 07:40] VITALS: TEMP 98.3
[2022-08-13] MEDS: HYDROGEN PEROXIDE 3% 118 ML BOTTLE TP SCH ×2 (07:45→19:08)
[2022-08-13] MEDS: OLOPATADINE 0.1% OPHT DROP 5 ML BOTTLE EACHEYE SCH ×2 (09:17→17:28)
[2022-08-13] MEDS: LORATADINE 10 MG TABLET GT SCH (09:17)
[2022-08-13] MEDS: DOCUSATE SODIUM 100 MG/10 ML LIQUID UDC GT SCH ×2 (09:17→21:38)
[2022-08-13] MEDS: BACLOFEN 20 MG TABLET GT SCH ×3 (09:20→17:28)
[2022-08-13] MEDS: CHLORHEXIDINE GLUCONATE 15 ML MOUTHWASH MM SCH ×2 (09:22→17:28)
[2022-08-13] MEDS: FLUOXETINE HCL 20 MG CAPSULE GT SCH (09:22)
[2022-08-13] MEDS: FLUTICASONE PROP NASAL SPRAY 16 GM BOTTLE NS SCH (09:22)
[2022-08-13] MEDS: REMEDY ESSENTIAL ZINC PASTE 113 GM TP SCH ×2 (09:23→21:40)
[2022-08-13] MEDS: ENOXAPARIN SODIUM 40 MG/0.4 ML DISP.SYRIN SQ SCH (09:23)
[2022-08-13] MEDS: DICLOFENAC SODIUM 100 GM GEL..GRAM. TP SCH ×2 (09:23→21:39)
[2022-08-13] MEDS: HYDROMORPHONE HCL 2 MG TABLET GT PRN ×2 (09:25→17:33)
[2022-08-13] MEDS: SERTRALINE HCL 50 MG TABLET GT SCH (12:44)
[2022-08-13] MEDS: LORAZEPAM 1 MG TABLET GT PRN ×2 (12:48→21:42)
[2022-08-13] MEDS: JEVITY 1.2 1000 ML LIQUID GT PRN (17:36)
[2022-08-13 20:00] VITALS: TEMP 98.8
[2022-08-13] MEDS: hydrOXYzine HCL 25 MG TABLET GT SCH (21:38)
[2022-08-13] MEDS: MELATONIN 3 MG TABLET GT SCH (21:41)
[2022-08-14] MEDS: IPRATROPIUM BROMIDE 0.5 MG/2.5 ML NEBU NEB SCH ×4 (01:06→19:08)
[2022-08-14] MEDS: HYDROMORPHONE HCL 2 MG TABLET GT PRN ×3 (04:42→17:45)
[2022-08-14] MEDS: GABAPENTIN 300 MG/6 ML GT SCH ×3 (05:25→20:54)
[2022-08-14] MEDS: OMEPRAZOLE 20 MG CAPSULE.DR GT SCH (05:25)
[2022-08-14] MEDS: RILUZOLE 50 MG TAB GT SCH ×2 (05:25→17:44)
[2022-08-14] MEDS: HYDROGEN PEROXIDE 3% 118 ML BOTTLE TP SCH ×2 (07:23→19:08)
[2022-08-14 07:34] VITALS: TEMP 98
[2022-08-14] MEDS: DICLOFENAC SODIUM 100 GM GEL..GRAM. TP SCH ×2 (09:00→21:07)
[2022-08-14] MEDS: DOCUSATE SODIUM 100 MG/10 ML LIQUID UDC GT SCH ×2 (09:00→20:48)
[2022-08-14] MEDS: ENOXAPARIN SODIUM 40 MG/0.4 ML DISP.SYRIN SQ SCH (09:00)
[2022-08-14] MEDS: LORATADINE 10 MG TABLET GT SCH (09:00)
[2022-08-14] MEDS: CHLORHEXIDINE GLUCONATE 15 ML MOUTHWASH MM SCH ×2 (09:00→17:43)
[2022-08-14] MEDS: BACLOFEN 20 MG TABLET GT SCH ×3 (09:00→17:43)
[2022-08-14] MEDS: FLUOXETINE HCL 20 MG CAPSULE GT SCH (09:00)
[2022-08-14] MEDS: FLUTICASONE PROP NASAL SPRAY 16 GM BOTTLE NS SCH (09:00)
[2022-08-14] MEDS: REMEDY ESSENTIAL ZINC PASTE 113 GM TP SCH ×2 (09:00→21:03)
[2022-08-14] MEDS: OLOPATADINE 0.1% OPHT DROP 5 ML BOTTLE EACHEYE SCH ×2 (09:00→17:43)
[2022-08-14] MEDS: SERTRALINE HCL 50 MG TABLET GT SCH (12:00)
[2022-08-14] MEDS: LORAZEPAM 1 MG TABLET GT PRN ×2 (13:44→21:04)
[2022-08-14] MEDS: JEVITY 1.2 1000 ML LIQUID GT PRN (14:00)
[2022-08-14] MEDS: hydrOXYzine HCL 25 MG TABLET GT SCH (20:48)
[2022-08-14] MEDS: MELATONIN 3 MG TABLET GT SCH (21:01)
[2022-08-14 23:05] VITALS: TEMP 97.8
[2022-08-15] MEDS: IPRATROPIUM BROMIDE 0.5 MG/2.5 ML NEBU NEB SCH ×4 (01:29→20:09)
[2022-08-15] MEDS: GABAPENTIN 300 MG/6 ML GT SCH ×3 (05:10→21:30)
[2022-08-15] MEDS: HYDROMORPHONE HCL 2 MG TABLET GT PRN ×3 (05:15→17:00)
[2022-08-15] MEDS: OMEPRAZOLE 20 MG CAPSULE.DR GT SCH (05:29)
[2022-08-15] MEDS: RILUZOLE 50 MG TAB GT SCH ×2 (05:30→17:00)
[2022-08-15 07:52] VITALS: TEMP 97.4
[2022-08-15] MEDS: HYDROGEN PEROXIDE 3% 118 ML BOTTLE TP SCH ×2 (08:04→20:09)
[2022-08-15] MEDS: OLOPATADINE 0.1% OPHT DROP 5 ML BOTTLE EACHEYE SCH ×2 (08:59→16:59)
[2022-08-15] MEDS: LORATADINE 10 MG TABLET GT SCH (09:00)
[2022-08-15] MEDS: FLUOXETINE HCL 20 MG CAPSULE GT SCH (09:00)
[2022-08-15] MEDS: DOCUSATE SODIUM 100 MG/10 ML LIQUID UDC GT SCH ×2 (09:00→21:30)
[2022-08-15] MEDS: BACLOFEN 20 MG TABLET GT SCH ×3 (09:00→17:00)
[2022-08-15] MEDS: CHLORHEXIDINE GLUCONATE 15 ML MOUTHWASH MM SCH ×2 (09:01→17:00)
[2022-08-15] MEDS: ENOXAPARIN SODIUM 40 MG/0.4 ML DISP.SYRIN SQ SCH (09:01)
[2022-08-15] MEDS: REMEDY ESSENTIAL ZINC PASTE 113 GM TP SCH ×2 (09:01→21:39)
[2022-08-15] MEDS: DICLOFENAC SODIUM 100 GM GEL..GRAM. TP SCH ×2 (09:01→21:38)
[2022-08-15] MEDS: FLUTICASONE PROP NASAL SPRAY 16 GM BOTTLE NS SCH (09:01)
[2022-08-15] MEDS: JEVITY 1.2 1000 ML LIQUID GT PRN (11:30)
[2022-08-15] MEDS: SERTRALINE HCL 50 MG TABLET GT SCH (12:00)
[2022-08-15] MEDS: LORAZEPAM 1 MG TABLET GT PRN ×2 (13:32→21:30)
[2022-08-15] MEDS: POLYVINYL ALCOHOL OPHT DROPS 15 ML BOTTLE EACHEYE PRN (17:09)
[2022-08-15 20:18] VITALS: TEMP 98.6
[2022-08-15] MEDS: hydrOXYzine HCL 25 MG TABLET GT SCH (21:30)
[2022-08-15] MEDS: MELATONIN 3 MG TABLET GT SCH (21:30)
[2022-08-16] MEDS: IPRATROPIUM BROMIDE 0.5 MG/2.5 ML NEBU NEB SCH ×4 (01:23→19:09)
[2022-08-16] MEDS: HYDROMORPHONE HCL 2 MG TABLET GT PRN ×4 (05:35→18:32)
[2022-08-16] MEDS: RILUZOLE 50 MG TAB GT SCH ×2 (05:35→17:37)
[2022-08-16] MEDS: OMEPRAZOLE 20 MG CAPSULE.DR GT SCH (05:35)
[2022-08-16] MEDS: GABAPENTIN 300 MG/6 ML GT SCH ×3 (05:54→21:30)
[2022-08-16 08:00] VITALS: TEMP 98.8
[2022-08-16] MEDS: JEVITY 1.2 1000 ML LIQUID GT PRN (08:05)
[2022-08-16] MEDS: DICLOFENAC SODIUM 100 GM GEL..GRAM. TP SCH ×2 (09:00→21:00)
[2022-08-16] MEDS: OLOPATADINE 0.1% OPHT DROP 5 ML BOTTLE EACHEYE SCH ×2 (09:17→17:24)
[2022-08-16] MEDS: LORATADINE 10 MG TABLET GT SCH (09:17)
[2022-08-16] MEDS: CHLORHEXIDINE GLUCONATE 15 ML MOUTHWASH MM SCH ×2 (09:18→17:24)
[2022-08-16] MEDS: FLUOXETINE HCL 20 MG CAPSULE GT SCH (09:18)
[2022-08-16] MEDS: DOCUSATE SODIUM 100 MG/10 ML LIQUID UDC GT SCH ×2 (09:18→21:23)
[2022-08-16] MEDS: BACLOFEN 20 MG TABLET GT SCH ×3 (09:18→17:24)
[2022-08-16] MEDS: FLUTICASONE PROP NASAL SPRAY 16 GM BOTTLE NS SCH (09:19)
[2022-08-16] MEDS: REMEDY ESSENTIAL ZINC PASTE 113 GM TP SCH ×2 (09:19→21:26)
[2022-08-16] MEDS: HYDROGEN PEROXIDE 3% 118 ML BOTTLE TP SCH ×2 (09:20→19:09)
[2022-08-16] MEDS: ENOXAPARIN SODIUM 40 MG/0.4 ML DISP.SYRIN SQ SCH (09:22)
[2022-08-16] MEDS: SERTRALINE HCL 50 MG TABLET GT SCH (12:02)
[2022-08-16] MEDS: LORAZEPAM 1 MG TABLET GT PRN ×2 (12:15→21:30)
[2022-08-16] MEDS: ACETAMINOPHEN 650 MG/20 ML UDC- SA PATIENTS-PAIN ONLY GT PRN (12:15)
[2022-08-16 20:30] VITALS: TEMP 98.1
[2022-08-16] MEDS: hydrOXYzine HCL 25 MG TABLET GT SCH (21:23)
[2022-08-16] MEDS: MELATONIN 3 MG TABLET GT SCH (21:26)
[2022-08-17] MEDS: IPRATROPIUM BROMIDE 0.5 MG/2.5 ML NEBU NEB SCH ×4 (01:53→19:13)
[2022-08-17] MEDS: HYDROMORPHONE HCL 2 MG TABLET GT PRN ×3 (03:34→18:02)
[2022-08-17] MEDS: JEVITY 1.2 1000 ML LIQUID GT PRN (04:04)
[2022-08-17] MEDS: OMEPRAZOLE 20 MG CAPSULE.DR GT SCH (05:42)
[2022-08-17] MEDS: RILUZOLE 50 MG TAB GT SCH ×2 (05:42→18:03)
[2022-08-17] MEDS: GABAPENTIN 300 MG/6 ML GT SCH ×3 (05:42→20:39)
[2022-08-17] MEDS: HYDROGEN PEROXIDE 3% 118 ML BOTTLE TP SCH ×2 (07:45→19:13)
[2022-08-17 08:00] VITALS: TEMP 99
[2022-08-17] MEDS: BACLOFEN 20 MG TABLET GT SCH ×2 (11:06→12:57)
[2022-08-17] MEDS: FLUOXETINE HCL 20 MG CAPSULE GT SCH (11:06)
[2022-08-17] MEDS: LORATADINE 10 MG TABLET GT SCH (11:07)
[2022-08-17] MEDS: DOCUSATE SODIUM 100 MG/10 ML LIQUID UDC GT SCH ×2 (11:07→20:39)
[2022-08-17] MEDS: FLUTICASONE PROP NASAL SPRAY 16 GM BOTTLE NS SCH (11:08)
[2022-08-17] MEDS: REMEDY ESSENTIAL ZINC PASTE 113 GM TP SCH ×2 (11:09→20:43)
[2022-08-17] MEDS: DICLOFENAC SODIUM 100 GM GEL..GRAM. TP SCH ×2 (11:09→20:43)
[2022-08-17] MEDS: CHLORHEXIDINE GLUCONATE 15 ML MOUTHWASH MM SCH ×2 (11:09→16:25)
[2022-08-17] MEDS: ENOXAPARIN SODIUM 40 MG/0.4 ML DISP.SYRIN SQ SCH (11:09)
[2022-08-17] MEDS: POLYVINYL ALCOHOL OPHT DROPS 15 ML BOTTLE EACHEYE PRN (11:28)
[2022-08-17] MEDS: OLOPATADINE 0.1% OPHT DROP 5 ML BOTTLE EACHEYE SCH ×2 (11:28→16:24)
[2022-08-17] MEDS: SERTRALINE HCL 50 MG TABLET GT SCH (12:55)
[2022-08-17] MEDS: LORAZEPAM 1 MG TABLET GT PRN ×2 (12:55→21:00)
[2022-08-17] MEDS: ACETAMINOPHEN 650 MG/20 ML UDC- SA PATIENTS-PAIN ONLY GT PRN ×2 (16:23→23:30)
[2022-08-17] MEDS: hydrOXYzine HCL 25 MG TABLET GT SCH (20:38)
[2022-08-17] MEDS: MELATONIN 3 MG TABLET GT SCH (20:41)
[2022-08-17 21:00] VITALS: TEMP 98.6
[2022-08-18] MEDS: JEVITY 1.2 1000 ML LIQUID GT PRN ×2 (01:01→22:00)
[2022-08-18] MEDS: IPRATROPIUM BROMIDE 0.5 MG/2.5 ML NEBU NEB SCH ×4 (02:22→19:50)
[2022-08-18] MEDS: HYDROMORPHONE HCL 2 MG TABLET GT PRN ×3 (04:50→18:13)
[2022-08-18] MEDS: RILUZOLE 50 MG TAB GT SCH ×2 (05:03→18:10)
[2022-08-18] MEDS: OMEPRAZOLE 20 MG CAPSULE.DR GT SCH (05:03)
[2022-08-18] MEDS: GABAPENTIN 300 MG/6 ML GT SCH ×3 (05:03→20:50)
[2022-08-18] MEDS: POLYVINYL ALCOHOL OPHT DROPS 15 ML BOTTLE EACHEYE PRN (05:04)
[2022-08-18 08:00] VITALS: TEMP 98.2
[2022-08-18] MEDS: HYDROGEN PEROXIDE 3% 118 ML BOTTLE TP SCH ×2 (08:20→21:00)
[2022-08-18] MEDS: OLOPATADINE 0.1% OPHT DROP 5 ML BOTTLE EACHEYE SCH ×2 (09:38→17:15)
[2022-08-18] MEDS: LORATADINE 10 MG TABLET GT SCH (09:39)
[2022-08-18] MEDS: DOCUSATE SODIUM 100 MG/10 ML LIQUID UDC GT SCH ×2 (09:40→20:50)
[2022-08-18] MEDS: CHLORHEXIDINE GLUCONATE 15 ML MOUTHWASH MM SCH ×2 (09:40→17:15)
[2022-08-18] MEDS: FLUOXETINE HCL 20 MG CAPSULE GT SCH (09:40)
[2022-08-18] MEDS: FLUTICASONE PROP NASAL SPRAY 16 GM BOTTLE NS SCH (09:41)
[2022-08-18] MEDS: DICLOFENAC SODIUM 100 GM GEL..GRAM. TP SCH ×2 (09:41→20:52)
[2022-08-18] MEDS: REMEDY ESSENTIAL ZINC PASTE 113 GM TP SCH ×2 (09:41→20:52)
[2022-08-18] MEDS: ENOXAPARIN SODIUM 40 MG/0.4 ML DISP.SYRIN SQ SCH (09:43)
[2022-08-18] MEDS: SERTRALINE HCL 50 MG TABLET GT SCH (12:31)
[2022-08-18] MEDS: LORAZEPAM 1 MG TABLET GT PRN ×2 (12:31→21:00)
[2022-08-18 20:08] VITALS: TEMP 97.3
[2022-08-18] MEDS: hydrOXYzine HCL 25 MG TABLET GT SCH (20:50)
[2022-08-18] MEDS: MELATONIN 3 MG TABLET GT SCH (20:50)
[2022-08-19] MEDS: HYDROMORPHONE HCL 2 MG TABLET GT PRN ×3 (01:14→17:39)
[2022-08-19] MEDS: IPRATROPIUM BROMIDE 0.5 MG/2.5 ML NEBU NEB SCH ×4 (01:56→19:50)
[2022-08-19] MEDS: OMEPRAZOLE 20 MG CAPSULE.DR GT SCH (05:40)
[2022-08-19] MEDS: RILUZOLE 50 MG TAB GT SCH ×2 (05:40→17:39)
[2022-08-19] MEDS: GABAPENTIN 300 MG/6 ML GT SCH ×3 (05:40→20:57)
[2022-08-19] MEDS: HYDROGEN PEROXIDE 3% 118 ML BOTTLE TP SCH ×2 (07:28→21:00)
[2022-08-19 07:52] VITALS: TEMP 97.3
[2022-08-19] MEDS: ENOXAPARIN SODIUM 40 MG/0.4 ML DISP.SYRIN SQ SCH (09:49)
[2022-08-19] MEDS: DOCUSATE SODIUM 100 MG/10 ML LIQUID UDC GT SCH ×2 (09:49→20:57)
[2022-08-19] MEDS: LORATADINE 10 MG TABLET GT SCH (09:49)
[2022-08-19] MEDS: OLOPATADINE 0.1% OPHT DROP 5 ML BOTTLE EACHEYE SCH ×2 (09:49→17:39)
[2022-08-19] MEDS: DICLOFENAC SODIUM 100 GM GEL..GRAM. TP SCH ×2 (09:49→20:59)
[2022-08-19] MEDS: FLUOXETINE HCL 20 MG CAPSULE GT SCH (09:49)
[2022-08-19] MEDS: CHLORHEXIDINE GLUCONATE 15 ML MOUTHWASH MM SCH ×2 (09:49→17:39)
[2022-08-19] MEDS: REMEDY ESSENTIAL ZINC PASTE 113 GM TP SCH ×2 (09:49→20:59)
[2022-08-19] MEDS: FLUTICASONE PROP NASAL SPRAY 16 GM BOTTLE NS SCH (09:49)
[2022-08-19] MEDS: SERTRALINE HCL 50 MG TABLET GT SCH (12:00)
[2022-08-19] MEDS: LORAZEPAM 1 MG TABLET GT PRN ×2 (13:21→20:52)
[2022-08-19] MEDS: NEO/POLYMYX B/DEXAME OPHT OINT 3.5 GM TUBE LEFTEYE SCH ×2 (15:00→17:41)
[2022-08-19] MEDS ORDERED: NEO/POLYMYX B/DEXAME OPHT OINT 3.5 GM TUBE LEFTEYE SCH (18:00)
[2022-08-19] MEDS: MELATONIN 3 MG TABLET GT SCH (20:57)
[2022-08-19] MEDS: hydrOXYzine HCL 25 MG TABLET GT SCH (20:57)
[2022-08-19 21:59] VITALS: TEMP 98.7
[2022-08-20] MEDS: IPRATROPIUM BROMIDE 0.5 MG/2.5 ML NEBU NEB SCH ×4 (01:26→20:06)
[2022-08-20] MEDS: HYDROMORPHONE HCL 2 MG TABLET GT PRN ×4 (05:12→21:08)
[2022-08-20] MEDS: GABAPENTIN 300 MG/6 ML GT SCH ×3 (05:43→21:06)
[2022-08-20] MEDS: RILUZOLE 50 MG TAB GT SCH ×2 (05:43→17:21)
[2022-08-20] MEDS: OMEPRAZOLE 20 MG CAPSULE.DR GT SCH (05:43)
[2022-08-20] MEDS: NEO/POLYMYX B/DEXAME OPHT OINT 3.5 GM TUBE LEFTEYE SCH ×5 (05:44→23:30)
[2022-08-20 07:32] VITALS: TEMP 97.4
[2022-08-20] MEDS: HYDROGEN PEROXIDE 3% 118 ML BOTTLE TP SCH ×2 (07:40→08:48)
[2022-08-20] MEDS: LORATADINE 10 MG TABLET GT SCH (08:45)
[2022-08-20] MEDS: OLOPATADINE 0.1% OPHT DROP 5 ML BOTTLE EACHEYE SCH ×2 (08:45→16:40)
[2022-08-20] MEDS: DOCUSATE SODIUM 100 MG/10 ML LIQUID UDC GT SCH ×2 (08:45→21:06)
[2022-08-20] MEDS: CHLORHEXIDINE GLUCONATE 15 ML MOUTHWASH MM SCH ×2 (08:45→17:00)
[2022-08-20] MEDS: FLUOXETINE HCL 20 MG CAPSULE GT SCH (08:45)
[2022-08-20] MEDS: FLUTICASONE PROP NASAL SPRAY 16 GM BOTTLE NS SCH (08:46)
[2022-08-20] MEDS: ENOXAPARIN SODIUM 40 MG/0.4 ML DISP.SYRIN SQ SCH (08:47)
[2022-08-20] MEDS: DICLOFENAC SODIUM 100 GM GEL..GRAM. TP SCH ×2 (08:47→21:06)
[2022-08-20] MEDS: REMEDY ESSENTIAL ZINC PASTE 113 GM TP SCH ×2 (08:48→21:06)
[2022-08-20] MEDS: SERTRALINE HCL 50 MG TABLET GT SCH (12:00)
[2022-08-20] MEDS: LORAZEPAM 1 MG TABLET GT PRN ×2 (12:06→21:30)
[2022-08-20] MEDS: JEVITY 1.2 1000 ML LIQUID GT PRN (17:56)
[2022-08-20] MEDS: MELATONIN 3 MG TABLET GT SCH (21:06)
[2022-08-20] MEDS: hydrOXYzine HCL 25 MG TABLET GT SCH (21:07)
[2022-08-20] MEDS: ACETAMINOPHEN 650 MG/20 ML UDC- SA PATIENTS-PAIN ONLY GT PRN (22:22)
[2022-08-20 22:56] VITALS: TEMP 98.3
[2022-08-21] MEDS: IPRATROPIUM BROMIDE 0.5 MG/2.5 ML NEBU NEB SCH ×4 (00:35→19:18)
[2022-08-21] MEDS: HYDROMORPHONE HCL 2 MG TABLET GT PRN ×4 (01:54→23:25)
[2022-08-21] MEDS: LORAZEPAM 1 MG TABLET GT PRN ×3 (04:43→23:19)
[2022-08-21] MEDS: OMEPRAZOLE 20 MG CAPSULE.DR GT SCH (06:22)
[2022-08-21] MEDS: NEO/POLYMYX B/DEXAME OPHT OINT 3.5 GM TUBE LEFTEYE SCH ×4 (06:22→23:13)
[2022-08-21] MEDS: RILUZOLE 50 MG TAB GT SCH ×2 (06:22→17:36)
[2022-08-21] MEDS: GABAPENTIN 300 MG/6 ML GT SCH ×3 (06:22→20:45)
[2022-08-21 07:34] VITALS: TEMP 98.3
[2022-08-21] MEDS: HYDROGEN PEROXIDE 3% 118 ML BOTTLE TP SCH ×2 (09:00→19:18)
[2022-08-21] MEDS: OLOPATADINE 0.1% OPHT DROP 5 ML BOTTLE EACHEYE SCH ×2 (09:54→17:36)
[2022-08-21] MEDS: FLUOXETINE HCL 20 MG CAPSULE GT SCH (09:55)
[2022-08-21] MEDS: DOCUSATE SODIUM 100 MG/10 ML LIQUID UDC GT SCH ×2 (09:55→20:56)
[2022-08-21] MEDS: LORATADINE 10 MG TABLET GT SCH (09:55)
[2022-08-21] MEDS: CHLORHEXIDINE GLUCONATE 15 ML MOUTHWASH MM SCH ×2 (09:55→17:36)
[2022-08-21] MEDS: FLUTICASONE PROP NASAL SPRAY 16 GM BOTTLE NS SCH (09:56)
[2022-08-21] MEDS: REMEDY ESSENTIAL ZINC PASTE 113 GM TP SCH ×2 (09:56→20:57)
[2022-08-21] MEDS: DICLOFENAC SODIUM 100 GM GEL..GRAM. TP SCH ×2 (09:56→20:57)
[2022-08-21] MEDS: ENOXAPARIN SODIUM 40 MG/0.4 ML DISP.SYRIN SQ SCH (09:56)
[2022-08-21] MEDS: SERTRALINE HCL 50 MG TABLET GT SCH (12:03)
[2022-08-21 20:00] VITALS: TEMP 98.6
[2022-08-21] MEDS: MELATONIN 3 MG TABLET GT SCH (20:56)
[2022-08-21] MEDS: hydrOXYzine HCL 25 MG TABLET GT SCH (20:58)
[2022-08-22] MEDS: IPRATROPIUM BROMIDE 0.5 MG/2.5 ML NEBU NEB SCH ×4 (01:30→19:18)
[2022-08-22] MEDS: LORAZEPAM 1 MG TABLET GT PRN ×3 (04:50→21:01)
[2022-08-22] MEDS: GABAPENTIN 300 MG/6 ML GT SCH ×3 (05:01→21:00)
[2022-08-22] MEDS: NEO/POLYMYX B/DEXAME OPHT OINT 3.5 GM TUBE LEFTEYE SCH ×3 (05:01→17:06)
[2022-08-22] MEDS: RILUZOLE 50 MG TAB GT SCH ×2 (05:01→17:06)
[2022-08-22] MEDS: OMEPRAZOLE 20 MG CAPSULE.DR GT SCH (05:01)
[2022-08-22 08:00] VITALS: TEMP 98.2
[2022-08-22] MEDS: HYDROGEN PEROXIDE 3% 118 ML BOTTLE TP SCH ×2 (08:16→19:18)
[2022-08-22] MEDS: OLOPATADINE 0.1% OPHT DROP 5 ML BOTTLE EACHEYE SCH ×2 (09:26→17:06)
[2022-08-22] MEDS: DOCUSATE SODIUM 100 MG/10 ML LIQUID UDC GT SCH ×2 (09:27→21:00)
[2022-08-22] MEDS: LORATADINE 10 MG TABLET GT SCH (09:27)
[2022-08-22] MEDS: FLUOXETINE HCL 20 MG CAPSULE GT SCH (09:28)
[2022-08-22] MEDS: CHLORHEXIDINE GLUCONATE 15 ML MOUTHWASH MM SCH ×2 (09:29→17:06)
[2022-08-22] MEDS: REMEDY ESSENTIAL ZINC PASTE 113 GM TP SCH ×2 (09:30→21:00)
[2022-08-22] MEDS: DICLOFENAC SODIUM 100 GM GEL..GRAM. TP SCH ×2 (09:30→21:00)
[2022-08-22] MEDS: FLUTICASONE PROP NASAL SPRAY 16 GM BOTTLE NS SCH (09:30)
[2022-08-22] MEDS: ENOXAPARIN SODIUM 40 MG/0.4 ML DISP.SYRIN SQ SCH (09:32)
[2022-08-22] MEDS: HYDROMORPHONE HCL 2 MG TABLET GT PRN ×2 (09:34→17:55)
[2022-08-22] MEDS: SERTRALINE HCL 50 MG TABLET GT SCH (11:38)
[2022-08-22] MEDS: ACETAMINOPHEN 650 MG/20 ML UDC- SA PATIENTS-PAIN ONLY GT PRN (11:40)
[2022-08-22 20:00] VITALS: TEMP 98.9
[2022-08-22] MEDS: hydrOXYzine HCL 25 MG TABLET GT SCH (21:00)
[2022-08-22] MEDS: MELATONIN 3 MG TABLET GT SCH (21:26)
[2022-08-23] MEDS: NEO/POLYMYX B/DEXAME OPHT OINT 3.5 GM TUBE LEFTEYE SCH ×4 (00:30→17:40)
[2022-08-23] MEDS: HYDROMORPHONE HCL 2 MG TABLET GT PRN ×2 (00:30→09:52)
[2022-08-23] MEDS: IPRATROPIUM BROMIDE 0.5 MG/2.5 ML NEBU NEB SCH ×4 (01:40→19:43)
[2022-08-23] MEDS: LORAZEPAM 1 MG TABLET GT PRN ×3 (04:16→21:00)
[2022-08-23] MEDS: OMEPRAZOLE 20 MG CAPSULE.DR GT SCH (05:57)
[2022-08-23] MEDS: RILUZOLE 50 MG TAB GT SCH ×2 (05:57→17:40)
[2022-08-23] MEDS: GABAPENTIN 300 MG/6 ML GT SCH ×3 (05:57→20:48)
[2022-08-23 08:00] VITALS: TEMP 99
[2022-08-23] MEDS: HYDROGEN PEROXIDE 3% 118 ML BOTTLE TP SCH ×2 (08:38→21:00)
[2022-08-23] MEDS: CHLORHEXIDINE GLUCONATE 15 ML MOUTHWASH MM SCH ×2 (09:55→17:37)
[2022-08-23] MEDS: DICLOFENAC SODIUM 100 GM GEL..GRAM. TP SCH ×2 (09:55→20:49)
[2022-08-23] MEDS: FLUTICASONE PROP NASAL SPRAY 16 GM BOTTLE NS SCH (09:55)
[2022-08-23] MEDS: DOCUSATE SODIUM 100 MG/10 ML LIQUID UDC GT SCH ×2 (09:55→20:48)
[2022-08-23] MEDS: LORATADINE 10 MG TABLET GT SCH (09:55)
[2022-08-23] MEDS: FLUOXETINE HCL 20 MG CAPSULE GT SCH (09:55)
[2022-08-23] MEDS: OLOPATADINE 0.1% OPHT DROP 5 ML BOTTLE EACHEYE SCH ×2 (09:55→17:37)
[2022-08-23] MEDS: REMEDY ESSENTIAL ZINC PASTE 113 GM TP SCH ×2 (09:56→20:49)
[2022-08-23] MEDS: ENOXAPARIN SODIUM 40 MG/0.4 ML DISP.SYRIN SQ SCH (09:57)
[2022-08-23] MEDS: SERTRALINE HCL 50 MG TABLET GT SCH (11:05)
[2022-08-23] MEDS: JEVITY 1.2 1000 ML LIQUID GT PRN (11:15)
[2022-08-23] MEDS: ACETAMINOPHEN 650 MG/20 ML UDC- SA PATIENTS-PAIN ONLY GT PRN (15:34)
[2022-08-23 20:00] VITALS: TEMP 98.7
[2022-08-23] MEDS: hydrOXYzine HCL 25 MG TABLET GT SCH (20:48)
[2022-08-23] MEDS: MELATONIN 3 MG TABLET GT SCH (20:48)
[2022-08-24] MEDS: IPRATROPIUM BROMIDE 0.5 MG/2.5 ML NEBU NEB SCH ×4 (01:40→19:24)
[2022-08-24] MEDS: LORAZEPAM 1 MG TABLET GT PRN ×3 (04:21→21:30)
[2022-08-24] MEDS: RILUZOLE 50 MG TAB GT SCH ×2 (05:36→17:19)
[2022-08-24] MEDS: GABAPENTIN 300 MG/6 ML GT SCH ×3 (05:36→21:11)
[2022-08-24] MEDS: NEO/POLYMYX B/DEXAME OPHT OINT 3.5 GM TUBE LEFTEYE SCH ×4 (05:36→17:23)
[2022-08-24] MEDS: OMEPRAZOLE 20 MG CAPSULE.DR GT SCH (05:36)
[2022-08-24 08:00] VITALS: TEMP 98.6
[2022-08-24] MEDS: HYDROGEN PEROXIDE 3% 118 ML BOTTLE TP SCH ×2 (08:28→19:24)
[2022-08-24] MEDS: ENOXAPARIN SODIUM 40 MG/0.4 ML DISP.SYRIN SQ SCH (09:51)
[2022-08-24] MEDS: OLOPATADINE 0.1% OPHT DROP 5 ML BOTTLE EACHEYE SCH ×2 (09:52→17:18)
[2022-08-24] MEDS: LORATADINE 10 MG TABLET GT SCH (09:52)
[2022-08-24] MEDS: FLUOXETINE HCL 20 MG CAPSULE GT SCH (09:53)
[2022-08-24] MEDS: DOCUSATE SODIUM 100 MG/10 ML LIQUID UDC GT SCH ×2 (09:53→21:11)
[2022-08-24] MEDS: REMEDY ESSENTIAL ZINC PASTE 113 GM TP SCH ×2 (09:54→21:13)
[2022-08-24] MEDS: HYDROMORPHONE HCL 2 MG TABLET GT PRN ×2 (09:54→17:20)
[2022-08-24] MEDS: DICLOFENAC SODIUM 100 GM GEL..GRAM. TP SCH ×2 (09:54→21:13)
[2022-08-24] MEDS: CHLORHEXIDINE GLUCONATE 15 ML MOUTHWASH MM SCH ×2 (09:54→17:18)
[2022-08-24] MEDS: FLUTICASONE PROP NASAL SPRAY 16 GM BOTTLE NS SCH (09:54)
[2022-08-24] MEDS: JEVITY 1.2 1000 ML LIQUID GT PRN (10:30)
[2022-08-24] MEDS: SERTRALINE HCL 50 MG TABLET GT SCH (12:16)
[2022-08-24] MEDS: ACETAMINOPHEN 650 MG/20 ML UDC- SA PATIENTS-PAIN ONLY GT PRN (15:26)
[2022-08-24 20:20] VITALS: TEMP 98.2
[2022-08-24] MEDS: hydrOXYzine HCL 25 MG TABLET GT SCH (21:11)
[2022-08-24] MEDS: MELATONIN 3 MG TABLET GT SCH (21:11)
[2022-08-25] MEDS: ACETAMINOPHEN 650 MG/20 ML UDC- SA PATIENTS-PAIN ONLY GT PRN ×2 (01:10→18:13)
[2022-08-25] MEDS: IPRATROPIUM BROMIDE 0.5 MG/2.5 ML NEBU NEB SCH ×4 (01:12→19:30)
[2022-08-25] MEDS: LORAZEPAM 1 MG TABLET GT PRN ×3 (05:16→20:54)
[2022-08-25] MEDS: RILUZOLE 50 MG TAB GT SCH ×2 (05:21→17:33)
[2022-08-25] MEDS: NEO/POLYMYX B/DEXAME OPHT OINT 3.5 GM TUBE LEFTEYE SCH ×4 (05:21→17:33)
[2022-08-25] MEDS: OMEPRAZOLE 20 MG CAPSULE.DR GT SCH (05:21)
[2022-08-25] MEDS: GABAPENTIN 300 MG/6 ML GT SCH ×3 (05:21→21:07)
[2022-08-25] MEDS: JEVITY 1.2 1000 ML LIQUID GT PRN (06:56)
[2022-08-25 08:00] VITALS: TEMP 98
[2022-08-25] MEDS: LORATADINE 10 MG TABLET GT SCH (09:00)
[2022-08-25] MEDS: DOCUSATE SODIUM 100 MG/10 ML LIQUID UDC GT SCH ×2 (09:00→21:06)
[2022-08-25] MEDS: FLUTICASONE PROP NASAL SPRAY 16 GM BOTTLE NS SCH (09:00)
[2022-08-25] MEDS: DICLOFENAC SODIUM 100 GM GEL..GRAM. TP SCH ×2 (09:00→21:08)
[2022-08-25] MEDS: REMEDY ESSENTIAL ZINC PASTE 113 GM TP SCH ×2 (09:00→21:08)
[2022-08-25] MEDS: CHLORHEXIDINE GLUCONATE 15 ML MOUTHWASH MM SCH ×2 (09:00→17:33)
[2022-08-25] MEDS: OLOPATADINE 0.1% OPHT DROP 5 ML BOTTLE EACHEYE SCH ×2 (09:00→17:33)
[2022-08-25] MEDS: FLUOXETINE HCL 20 MG CAPSULE GT SCH (09:00)
[2022-08-25] MEDS: ENOXAPARIN SODIUM 40 MG/0.4 ML DISP.SYRIN SQ SCH (09:00)
[2022-08-25] MEDS: HYDROGEN PEROXIDE 3% 118 ML BOTTLE TP SCH ×2 (09:09→21:17)
[2022-08-25] MEDS: HYDROMORPHONE HCL 2 MG TABLET GT PRN ×2 (10:18→14:53)
[2022-08-25] MEDS: SERTRALINE HCL 50 MG TABLET GT SCH (12:28)
[2022-08-25 20:00] VITALS: TEMP 97.4
[2022-08-25] MEDS: hydrOXYzine HCL 25 MG TABLET GT SCH (21:06)
[2022-08-25] MEDS: MELATONIN 3 MG TABLET GT SCH (21:07)
[2022-08-26] MEDS: NEO/POLYMYX B/DEXAME OPHT OINT 3.5 GM TUBE LEFTEYE SCH ×4 (00:26→18:10)
[2022-08-26] MEDS: IPRATROPIUM BROMIDE 0.5 MG/2.5 ML NEBU NEB SCH ×4 (02:14→19:28)
[2022-08-26] MEDS: LORAZEPAM 1 MG TABLET GT PRN ×3 (04:22→21:30)
[2022-08-26] MEDS: JEVITY 1.2 1000 ML LIQUID GT PRN (04:25)
[2022-08-26] MEDS: GABAPENTIN 300 MG/6 ML GT SCH ×3 (05:03→20:35)
[2022-08-26] MEDS: RILUZOLE 50 MG TAB GT SCH ×2 (05:03→17:15)
[2022-08-26] MEDS: OMEPRAZOLE 20 MG CAPSULE.DR GT SCH (05:03)
[2022-08-26 08:00] VITALS: TEMP 98
[2022-08-26] MEDS: HYDROGEN PEROXIDE 3% 118 ML BOTTLE TP SCH ×2 (09:23→21:56)
[2022-08-26] MEDS: OLOPATADINE 0.1% OPHT DROP 5 ML BOTTLE EACHEYE SCH ×2 (09:28→17:15)
[2022-08-26] MEDS: LORATADINE 10 MG TABLET GT SCH (09:29)
[2022-08-26] MEDS: DOCUSATE SODIUM 100 MG/10 ML LIQUID UDC GT SCH ×2 (09:29→20:34)
[2022-08-26] MEDS: HYDROMORPHONE HCL 2 MG TABLET GT PRN ×2 (09:30→17:17)
[2022-08-26] MEDS: FLUOXETINE HCL 20 MG CAPSULE GT SCH (09:30)
[2022-08-26] MEDS: CHLORHEXIDINE GLUCONATE 15 ML MOUTHWASH MM SCH ×2 (09:31→17:15)
[2022-08-26] MEDS: FLUTICASONE PROP NASAL SPRAY 16 GM BOTTLE NS SCH (09:31)
[2022-08-26] MEDS: ENOXAPARIN SODIUM 40 MG/0.4 ML DISP.SYRIN SQ SCH (09:32)
[2022-08-26] MEDS: REMEDY ESSENTIAL ZINC PASTE 113 GM TP SCH ×2 (09:32→20:39)
[2022-08-26] MEDS: DICLOFENAC SODIUM 100 GM GEL..GRAM. TP SCH ×2 (09:32→20:39)
[2022-08-26] MEDS: hydrOXYzine HCL 25 MG TABLET GT SCH (20:33)
[2022-08-26] MEDS: MELATONIN 3 MG TABLET GT SCH (20:38)
[2022-08-26] MEDS: ACETAMINOPHEN 650 MG/20 ML UDC- SA PATIENTS-PAIN ONLY GT PRN (22:49)
[2022-08-27] MEDS: IPRATROPIUM BROMIDE 0.5 MG/2.5 ML NEBU NEB SCH ×4 (01:18→19:21)
[2022-08-27] MEDS: LORAZEPAM 1 MG TABLET GT PRN ×4 (02:00→21:07)
[2022-08-27] MEDS: GABAPENTIN 300 MG/6 ML GT SCH ×3 (05:29→21:04)
[2022-08-27] MEDS: JEVITY 1.2 1000 ML LIQUID GT PRN (05:30)
[2022-08-27] MEDS: RILUZOLE 50 MG TAB GT SCH ×2 (05:30→18:39)
[2022-08-27] MEDS: OMEPRAZOLE 20 MG CAPSULE.DR GT SCH (05:30)
[2022-08-27] MEDS: NEO/POLYMYX B/DEXAME OPHT OINT 3.5 GM TUBE LEFTEYE SCH ×4 (05:30→18:40)
[2022-08-27 07:52] VITALS: TEMP 97.9
[2022-08-27] MEDS: HYDROGEN PEROXIDE 3% 118 ML BOTTLE TP SCH ×2 (09:40→19:21)
[2022-08-27] MEDS: DOCUSATE SODIUM 100 MG/10 ML LIQUID UDC GT SCH ×2 (09:42→21:04)
[2022-08-27] MEDS: LORATADINE 10 MG TABLET GT SCH (09:42)
[2022-08-27] MEDS: OLOPATADINE 0.1% OPHT DROP 5 ML BOTTLE EACHEYE SCH ×2 (09:42→17:00)
[2022-08-27] MEDS: FLUOXETINE HCL 40 MG CAPSULE GT SCH (09:43)
[2022-08-27] MEDS: CHLORHEXIDINE GLUCONATE 15 ML MOUTHWASH MM SCH ×2 (09:43→17:00)
[2022-08-27] MEDS: FLUTICASONE PROP NASAL SPRAY 16 GM BOTTLE NS SCH (09:43)
[2022-08-27] MEDS: ENOXAPARIN SODIUM 40 MG/0.4 ML DISP.SYRIN SQ SCH (09:44)
[2022-08-27] MEDS: REMEDY ESSENTIAL ZINC PASTE 113 GM TP SCH ×2 (09:44→21:07)
[2022-08-27] MEDS: DICLOFENAC SODIUM 100 GM GEL..GRAM. TP SCH ×2 (09:44→21:07)
[2022-08-27] MEDS: HYDROMORPHONE HCL 2 MG TABLET GT PRN ×2 (14:37→18:46)
[2022-08-27 20:00] VITALS: TEMP 98.1
[2022-08-27] MEDS: hydrOXYzine HCL 25 MG TABLET GT SCH (21:04)
[2022-08-27] MEDS: MELATONIN 3 MG TABLET GT SCH (21:05)
[2022-08-28] MEDS: IPRATROPIUM BROMIDE 0.5 MG/2.5 ML NEBU NEB SCH ×4 (01:25→19:28)
[2022-08-28] MEDS: LORAZEPAM 1 MG TABLET GT PRN ×4 (04:44→21:43)
[2022-08-28] MEDS: OMEPRAZOLE 20 MG CAPSULE.DR GT SCH (05:11)
[2022-08-28] MEDS: JEVITY 1.2 1000 ML LIQUID GT PRN (05:11)
[2022-08-28] MEDS: RILUZOLE 50 MG TAB GT SCH ×2 (05:11→18:18)
[2022-08-28] MEDS: GABAPENTIN 300 MG/6 ML GT SCH ×2 (05:11→14:55)
[2022-08-28] MEDS: NEO/POLYMYX B/DEXAME OPHT OINT 3.5 GM TUBE LEFTEYE SCH ×4 (05:11→18:18)
[2022-08-28 07:53] VITALS: TEMP 97.5
[2022-08-28] MEDS: OLOPATADINE 0.1% OPHT DROP 5 ML BOTTLE EACHEYE SCH ×2 (09:41→17:00)
[2022-08-28] MEDS: HYDROMORPHONE HCL 2 MG TABLET GT PRN ×2 (09:41→14:56)
[2022-08-28] MEDS: LORATADINE 10 MG TABLET GT SCH (09:42)
[2022-08-28] MEDS: FLUOXETINE HCL 40 MG CAPSULE GT SCH (09:42)
[2022-08-28] MEDS: DOCUSATE SODIUM 100 MG/10 ML LIQUID UDC GT SCH ×2 (09:42→21:37)
[2022-08-28] MEDS: FLUTICASONE PROP NASAL SPRAY 16 GM BOTTLE NS SCH (09:45)
[2022-08-28] MEDS: CHLORHEXIDINE GLUCONATE 15 ML MOUTHWASH MM SCH ×2 (09:45→17:00)
[2022-08-28] MEDS: ENOXAPARIN SODIUM 40 MG/0.4 ML DISP.SYRIN SQ SCH (09:48)
[2022-08-28] MEDS: DICLOFENAC SODIUM 100 GM GEL..GRAM. TP SCH ×2 (09:51→21:37)
[2022-08-28] MEDS: REMEDY ESSENTIAL ZINC PASTE 113 GM TP SCH ×2 (09:52→21:38)
[2022-08-28] MEDS: HYDROGEN PEROXIDE 3% 118 ML BOTTLE TP SCH ×2 (12:45→23:12)
[2022-08-28] MEDS: ACETAMINOPHEN 650 MG/20 ML UDC- SA PATIENTS-PAIN ONLY GT PRN (18:21)
[2022-08-28] MEDS ORDERED: GABAPENTIN 400 MG CAPSULE GT SCH (21:00)
[2022-08-28 21:27] VITALS: TEMP 98.4
[2022-08-28] MEDS: hydrOXYzine HCL 25 MG TABLET GT SCH (21:36)
[2022-08-28] MEDS: MELATONIN 3 MG TABLET GT SCH (21:37)
[2022-08-29] MEDS: ACETAMINOPHEN 650 MG/20 ML UDC- SA PATIENTS-PAIN ONLY GT PRN (01:56)
[2022-08-29] MEDS: IPRATROPIUM BROMIDE 0.5 MG/2.5 ML NEBU NEB SCH ×4 (03:01→19:44)
[2022-08-29] MEDS: LORAZEPAM 1 MG TABLET GT PRN ×4 (04:17→20:40)
[2022-08-29] MEDS: JEVITY 1.2 1000 ML LIQUID GT PRN (04:28)
[2022-08-29] MEDS: NEO/POLYMYX B/DEXAME OPHT OINT 3.5 GM TUBE LEFTEYE SCH ×5 (05:41→23:06)
[2022-08-29] MEDS: RILUZOLE 50 MG TAB GT SCH ×2 (05:41→17:54)
[2022-08-29] MEDS: OMEPRAZOLE 20 MG CAPSULE.DR GT SCH (05:41)
[2022-08-29] MEDS ORDERED: GABAPENTIN 400 MG CAPSULE GT SCH (06:00)
[2022-08-29] MEDS: OLOPATADINE 0.1% OPHT DROP 5 ML BOTTLE EACHEYE SCH ×2 (09:20→17:54)
[2022-08-29] MEDS: LORATADINE 10 MG TABLET GT SCH (09:20)
[2022-08-29] MEDS: DOCUSATE SODIUM 100 MG/10 ML LIQUID UDC GT SCH ×2 (09:21→20:34)
[2022-08-29] MEDS: FLUOXETINE HCL 40 MG CAPSULE GT SCH (09:21)
[2022-08-29] MEDS: FLUTICASONE PROP NASAL SPRAY 16 GM BOTTLE NS SCH (09:21)
[2022-08-29] MEDS: CHLORHEXIDINE GLUCONATE 15 ML MOUTHWASH MM SCH ×2 (09:21→17:54)
[2022-08-29] MEDS: REMEDY ESSENTIAL ZINC PASTE 113 GM TP SCH ×2 (09:22→20:39)
[2022-08-29] MEDS: DICLOFENAC SODIUM 100 GM GEL..GRAM. TP SCH ×2 (09:22→20:36)
[2022-08-29] MEDS: ENOXAPARIN SODIUM 40 MG/0.4 ML DISP.SYRIN SQ SCH (09:22)
[2022-08-29] MEDS: HYDROGEN PEROXIDE 3% 118 ML BOTTLE TP SCH ×2 (09:26→21:14)
[2022-08-29] MEDS: HYDROMORPHONE HCL 2 MG TABLET GT PRN ×2 (09:37→14:05)
[2022-08-29 12:23] VITALS: TEMP 97.6
[2022-08-29] MEDS: GABAPENTIN 300 MG/6 ML GT SCH ×2 (13:03→20:34)
[2022-08-29] MEDS: hydrOXYzine HCL 25 MG TABLET GT SCH (20:34)
[2022-08-29] MEDS: MELATONIN 3 MG TABLET GT SCH (20:36)
[2022-08-29 21:07] VITALS: TEMP 98
[2022-08-30] MEDS: HYDROMORPHONE HCL 2 MG TABLET GT PRN ×4 (00:31→21:09)
[2022-08-30] MEDS: IPRATROPIUM BROMIDE 0.5 MG/2.5 ML NEBU NEB SCH ×4 (00:47→19:26)
[2022-08-30] MEDS: LORAZEPAM 1 MG TABLET GT PRN ×4 (01:01→21:30)
[2022-08-30] MEDS: NEO/POLYMYX B/DEXAME OPHT OINT 3.5 GM TUBE LEFTEYE SCH ×3 (05:20→16:53)
[2022-08-30] MEDS: OMEPRAZOLE 20 MG CAPSULE.DR GT SCH (05:20)
[2022-08-30] MEDS: RILUZOLE 50 MG TAB GT SCH ×2 (05:20→16:53)
[2022-08-30] MEDS: GABAPENTIN 300 MG/6 ML GT SCH ×3 (05:20→21:28)
[2022-08-30] MEDS: JEVITY 1.2 1000 ML LIQUID GT PRN (05:22)
[2022-08-30 08:00] VITALS: TEMP 98.9
[2022-08-30] MEDS: DOCUSATE SODIUM 100 MG/10 ML LIQUID UDC GT SCH ×2 (08:32→21:27)
[2022-08-30] MEDS: LORATADINE 10 MG TABLET GT SCH (08:32)
[2022-08-30] MEDS: FLUOXETINE HCL 40 MG CAPSULE GT SCH (08:33)
[2022-08-30] MEDS: DICLOFENAC SODIUM 100 GM GEL..GRAM. TP SCH ×2 (09:00→21:29)
[2022-08-30] MEDS: OLOPATADINE 0.1% OPHT DROP 5 ML BOTTLE EACHEYE SCH ×2 (09:00→16:52)
[2022-08-30] MEDS: CHLORHEXIDINE GLUCONATE 15 ML MOUTHWASH MM SCH ×2 (09:00→16:52)
[2022-08-30] MEDS: FLUTICASONE PROP NASAL SPRAY 16 GM BOTTLE NS SCH (09:00)
[2022-08-30] MEDS: ENOXAPARIN SODIUM 40 MG/0.4 ML DISP.SYRIN SQ SCH (09:00)
[2022-08-30] MEDS: REMEDY ESSENTIAL ZINC PASTE 113 GM TP SCH ×2 (09:00→21:29)
[2022-08-30] MEDS: HYDROGEN PEROXIDE 3% 118 ML BOTTLE TP SCH ×2 (09:18→19:26)
[2022-08-30 20:00] VITALS: TEMP 98.9
[2022-08-30] MEDS: hydrOXYzine HCL 25 MG TABLET GT SCH (21:27)
[2022-08-30] MEDS: MELATONIN 3 MG TABLET GT SCH (21:29)
[2022-08-31] MEDS: NEO/POLYMYX B/DEXAME OPHT OINT 3.5 GM TUBE LEFTEYE SCH ×4 (00:50→17:53)
[2022-08-31] MEDS: IPRATROPIUM BROMIDE 0.5 MG/2.5 ML NEBU NEB SCH ×4 (01:18→19:09)
[2022-08-31] MEDS: LORAZEPAM 1 MG TABLET GT PRN ×3 (04:26→14:33)
[2022-08-31] MEDS: HYDROMORPHONE HCL 2 MG TABLET GT PRN ×4 (04:26→23:14)
[2022-08-31] MEDS: JEVITY 1.2 1000 ML LIQUID GT PRN (04:29)
[2022-08-31] MEDS: RILUZOLE 50 MG TAB GT SCH ×2 (05:40→17:53)
[2022-08-31] MEDS: GABAPENTIN 300 MG/6 ML GT SCH ×3 (05:40→21:35)
[2022-08-31] MEDS: OMEPRAZOLE 20 MG CAPSULE.DR GT SCH (05:40)
[2022-08-31 08:00] VITALS: TEMP 97.8
[2022-08-31] MEDS: OLOPATADINE 0.1% OPHT DROP 5 ML BOTTLE EACHEYE SCH ×2 (09:06→17:53)
[2022-08-31] MEDS: LORATADINE 10 MG TABLET GT SCH (09:06)
[2022-08-31] MEDS: DOCUSATE SODIUM 100 MG/10 ML LIQUID UDC GT SCH ×2 (09:07→21:35)
[2022-08-31] MEDS: FLUOXETINE HCL 40 MG CAPSULE GT SCH (09:07)
[2022-08-31] MEDS: FLUTICASONE PROP NASAL SPRAY 16 GM BOTTLE NS SCH (09:07)
[2022-08-31] MEDS: CHLORHEXIDINE GLUCONATE 15 ML MOUTHWASH MM SCH ×2 (09:08→17:53)
[2022-08-31] MEDS: ENOXAPARIN SODIUM 40 MG/0.4 ML DISP.SYRIN SQ SCH (09:09)
[2022-08-31] MEDS: DICLOFENAC SODIUM 100 GM GEL..GRAM. TP SCH ×2 (09:10→21:36)
[2022-08-31] MEDS: REMEDY ESSENTIAL ZINC PASTE 113 GM TP SCH ×2 (09:10→21:36)
[2022-08-31] MEDS: HYDROGEN PEROXIDE 3% 118 ML BOTTLE TP SCH ×2 (09:10→19:09)
[2022-08-31 11:30] VITALS: O2SAT 99
[2022-08-31 20:00] VITALS: TEMP 98.5
[2022-08-31] MEDS: hydrOXYzine HCL 25 MG TABLET GT SCH (21:35)
[2022-08-31] MEDS: MELATONIN 3 MG TABLET GT SCH (21:36)
[2022-09-01] MEDS: NEO/POLYMYX B/DEXAME OPHT OINT 3.5 GM TUBE LEFTEYE SCH ×4 (00:31→18:09)
[2022-09-01] MEDS: IPRATROPIUM BROMIDE 0.5 MG/2.5 ML NEBU NEB SCH ×4 (00:59→19:30)
[2022-09-01] MEDS: ACETAMINOPHEN 650 MG/20 ML UDC- SA PATIENTS-PAIN ONLY GT PRN (01:47)
[2022-09-01] MEDS: LORAZEPAM 1 MG TABLET GT PRN ×4 (01:48→21:30)
[2022-09-01] MEDS: OMEPRAZOLE 20 MG CAPSULE.DR GT SCH (05:10)
[2022-09-01] MEDS: HYDROMORPHONE HCL 2 MG TABLET GT PRN ×4 (05:10→20:30)
[2022-09-01] MEDS: GABAPENTIN 300 MG/6 ML GT SCH ×3 (05:10→20:42)
[2022-09-01] MEDS: RILUZOLE 50 MG TAB GT SCH ×2 (05:10→18:09)
[2022-09-01 08:00] VITALS: TEMP 98.5
[2022-09-01] MEDS: DICLOFENAC SODIUM 100 GM GEL..GRAM. TP SCH ×2 (08:54→20:42)
[2022-09-01] MEDS: CHLORHEXIDINE GLUCONATE 15 ML MOUTHWASH MM SCH ×2 (08:54→17:00)
[2022-09-01] MEDS: FLUTICASONE PROP NASAL SPRAY 16 GM BOTTLE NS SCH (08:54)
[2022-09-01] MEDS: OLOPATADINE 0.1% OPHT DROP 5 ML BOTTLE EACHEYE SCH ×2 (08:54→17:00)
[2022-09-01] MEDS: DOCUSATE SODIUM 100 MG/10 ML LIQUID UDC GT SCH ×2 (08:54→20:41)
[2022-09-01] MEDS: LORATADINE 10 MG TABLET GT SCH (08:54)
[2022-09-01] MEDS: ENOXAPARIN SODIUM 40 MG/0.4 ML DISP.SYRIN SQ SCH (08:56)
[2022-09-01] MEDS: FLUOXETINE HCL 40 MG CAPSULE GT SCH (08:56)
[2022-09-01] MEDS: HYDROGEN PEROXIDE 3% 118 ML BOTTLE TP SCH ×2 (08:56→21:03)
[2022-09-01] MEDS: REMEDY ESSENTIAL ZINC PASTE 113 GM TP SCH ×2 (08:57→20:42)
[2022-09-01 19:57] VITALS: TEMP 98.3
[2022-09-01] MEDS: hydrOXYzine HCL 25 MG TABLET GT SCH (20:41)
[2022-09-01] MEDS: MELATONIN 3 MG TABLET GT SCH (20:42)
[2022-09-02] MEDS: NEO/POLYMYX B/DEXAME OPHT OINT 3.5 GM TUBE LEFTEYE SCH ×2 (00:19→06:33)
[2022-09-02] MEDS: IPRATROPIUM BROMIDE 0.5 MG/2.5 ML NEBU NEB SCH ×4 (00:40→19:09)
[2022-09-02] MEDS: LORAZEPAM 1 MG TABLET GT PRN ×4 (03:13→21:40)
[2022-09-02] MEDS: ACETAMINOPHEN 650 MG/20 ML UDC- SA PATIENTS-PAIN ONLY GT PRN (03:13)
[2022-09-02] MEDS: HYDROMORPHONE HCL 2 MG TABLET GT PRN ×5 (06:00→22:42)
[2022-09-02] MEDS: RILUZOLE 50 MG TAB GT SCH ×2 (06:33→17:59)
[2022-09-02] MEDS: GABAPENTIN 300 MG/6 ML GT SCH ×3 (06:33→21:51)
[2022-09-02] MEDS: OMEPRAZOLE 20 MG CAPSULE.DR GT SCH (06:33)
[2022-09-02] MEDS: JEVITY 1.2 1000 ML LIQUID GT PRN (06:34)
[2022-09-02 07:46] VITALS: TEMP 98.3
[2022-09-02] MEDS: HYDROGEN PEROXIDE 3% 118 ML BOTTLE TP SCH ×2 (09:20→19:09)
[2022-09-02] MEDS: LORATADINE 10 MG TABLET GT SCH (09:45)
[2022-09-02] MEDS: DOCUSATE SODIUM 100 MG/10 ML LIQUID UDC GT SCH ×2 (09:45→21:51)
[2022-09-02] MEDS: OLOPATADINE 0.1% OPHT DROP 5 ML BOTTLE EACHEYE SCH ×2 (09:45→17:59)
[2022-09-02] MEDS: FLUOXETINE HCL 40 MG CAPSULE GT SCH (09:46)
[2022-09-02] MEDS: FLUTICASONE PROP NASAL SPRAY 16 GM BOTTLE NS SCH (09:47)
[2022-09-02] MEDS: CHLORHEXIDINE GLUCONATE 15 ML MOUTHWASH MM SCH ×2 (09:47→16:20)
[2022-09-02] MEDS: ENOXAPARIN SODIUM 40 MG/0.4 ML DISP.SYRIN SQ SCH (09:48)
[2022-09-02] MEDS: REMEDY ESSENTIAL ZINC PASTE 113 GM TP SCH ×2 (09:49→21:52)
[2022-09-02] MEDS: DICLOFENAC SODIUM 100 GM GEL..GRAM. TP SCH ×2 (09:49→21:51)
[2022-09-02 20:04] VITALS: TEMP 98.5
[2022-09-02] MEDS: hydrOXYzine HCL 25 MG TABLET GT SCH (21:51)
[2022-09-02] MEDS: MELATONIN 3 MG TABLET GT SCH (21:51)
[2022-09-03] MEDS: IPRATROPIUM BROMIDE 0.5 MG/2.5 ML NEBU NEB SCH ×4 (01:18→18:57)
[2022-09-03] MEDS: JEVITY 1.2 1000 ML LIQUID GT PRN (03:12)
[2022-09-03] MEDS: HYDROMORPHONE HCL 2 MG TABLET GT PRN ×3 (05:00→18:37)
[2022-09-03] MEDS: OMEPRAZOLE 20 MG CAPSULE.DR GT SCH (05:04)
[2022-09-03] MEDS: RILUZOLE 50 MG TAB GT SCH ×2 (05:04→18:35)
[2022-09-03] MEDS: GABAPENTIN 300 MG/6 ML GT SCH ×3 (05:04→21:00)
[2022-09-03] MEDS: HYDROGEN PEROXIDE 3% 118 ML BOTTLE TP SCH ×2 (07:39→18:57)
[2022-09-03 07:40] VITALS: TEMP 98.2
[2022-09-03] MEDS: OLOPATADINE 0.1% OPHT DROP 5 ML BOTTLE EACHEYE SCH ×2 (09:10→17:53)
[2022-09-03] MEDS: LORATADINE 10 MG TABLET GT SCH (09:11)
[2022-09-03] MEDS: DOCUSATE SODIUM 100 MG/10 ML LIQUID UDC GT SCH ×2 (09:12→21:00)
[2022-09-03] MEDS: FLUTICASONE PROP NASAL SPRAY 16 GM BOTTLE NS SCH (09:13)
[2022-09-03] MEDS: CHLORHEXIDINE GLUCONATE 15 ML MOUTHWASH MM SCH ×2 (09:13→17:53)
[2022-09-03] MEDS: FLUOXETINE HCL 40 MG CAPSULE GT SCH (09:13)
[2022-09-03] MEDS: ENOXAPARIN SODIUM 40 MG/0.4 ML DISP.SYRIN SQ SCH (09:16)
[2022-09-03] MEDS: REMEDY ESSENTIAL ZINC PASTE 113 GM TP SCH ×2 (09:17→21:00)
[2022-09-03] MEDS: DICLOFENAC SODIUM 100 GM GEL..GRAM. TP SCH ×2 (09:17→21:00)
[2022-09-03] MEDS: LORAZEPAM 1 MG TABLET GT PRN ×3 (10:21→22:09)
[2022-09-03] MEDS: ACETAMINOPHEN 650 MG/20 ML UDC- SA PATIENTS-PAIN ONLY GT PRN (15:23)
[2022-09-03 20:28] VITALS: TEMP 98.8
[2022-09-03] MEDS: MELATONIN 3 MG TABLET GT SCH (21:00)
[2022-09-03] MEDS: hydrOXYzine HCL 25 MG TABLET GT SCH (21:00)
[2022-09-04] MEDS: HYDROMORPHONE HCL 2 MG TABLET GT PRN ×4 (00:36→22:00)
[2022-09-04] MEDS: IPRATROPIUM BROMIDE 0.5 MG/2.5 ML NEBU NEB SCH ×4 (01:17→19:40)
[2022-09-04] MEDS: LORAZEPAM 1 MG TABLET GT PRN ×2 (05:01→22:30)
[2022-09-04] MEDS: RILUZOLE 50 MG TAB GT SCH ×2 (05:02→17:37)
[2022-09-04] MEDS: GABAPENTIN 300 MG/6 ML GT SCH ×3 (05:02→21:00)
[2022-09-04] MEDS: OMEPRAZOLE 20 MG CAPSULE.DR GT SCH (05:02)
[2022-09-04] MEDS: JEVITY 1.2 1000 ML LIQUID GT PRN (05:03)
[2022-09-04 07:40] VITALS: TEMP 98.2
[2022-09-04] MEDS: HYDROGEN PEROXIDE 3% 118 ML BOTTLE TP SCH ×2 (09:14→21:00)
[2022-09-04] MEDS: OLOPATADINE 0.1% OPHT DROP 5 ML BOTTLE EACHEYE SCH ×2 (09:41→16:27)
[2022-09-04] MEDS: DOCUSATE SODIUM 100 MG/10 ML LIQUID UDC GT SCH ×2 (09:42→21:00)
[2022-09-04] MEDS: LORATADINE 10 MG TABLET GT SCH (09:42)
[2022-09-04] MEDS: FLUTICASONE PROP NASAL SPRAY 16 GM BOTTLE NS SCH (09:43)
[2022-09-04] MEDS: CHLORHEXIDINE GLUCONATE 15 ML MOUTHWASH MM SCH ×2 (09:43→16:27)
[2022-09-04] MEDS: FLUOXETINE HCL 40 MG CAPSULE GT SCH (09:43)
[2022-09-04] MEDS: REMEDY ESSENTIAL ZINC PASTE 113 GM TP SCH ×2 (09:44→21:00)
[2022-09-04] MEDS: DICLOFENAC SODIUM 100 GM GEL..GRAM. TP SCH ×2 (09:44→21:00)
[2022-09-04] MEDS: ENOXAPARIN SODIUM 40 MG/0.4 ML DISP.SYRIN SQ SCH (09:46)
[2022-09-04 20:01] VITALS: TEMP 98.7
[2022-09-04] MEDS: hydrOXYzine HCL 25 MG TABLET GT SCH (21:00)
[2022-09-04] MEDS: MELATONIN 3 MG TABLET GT SCH (21:00)
[2022-09-05] MEDS: IPRATROPIUM BROMIDE 0.5 MG/2.5 ML NEBU NEB SCH ×4 (01:35→20:15)
[2022-09-05] MEDS: JEVITY 1.2 1000 ML LIQUID GT PRN (04:22)
[2022-09-05] MEDS: LORAZEPAM 1 MG TABLET GT PRN ×3 (04:30→21:30)
[2022-09-05] MEDS: ACETAMINOPHEN 650 MG/20 ML UDC- SA PATIENTS-PAIN ONLY GT PRN (04:33)
[2022-09-05] MEDS: GABAPENTIN 300 MG/6 ML GT SCH ×3 (05:42→21:29)
[2022-09-05] MEDS: RILUZOLE 50 MG TAB GT SCH ×2 (05:42→17:22)
[2022-09-05] MEDS: OMEPRAZOLE 20 MG CAPSULE.DR GT SCH (05:42)
[2022-09-05 08:14] VITALS: TEMP 97.9
[2022-09-05] MEDS: HYDROMORPHONE HCL 2 MG TABLET GT PRN ×3 (08:27→21:30)
[2022-09-05] MEDS: FLUOXETINE HCL 40 MG CAPSULE GT SCH (09:09)
[2022-09-05] MEDS: LORATADINE 10 MG TABLET GT SCH (09:09)
[2022-09-05] MEDS: OLOPATADINE 0.1% OPHT DROP 5 ML BOTTLE EACHEYE SCH ×2 (09:09→17:22)
[2022-09-05] MEDS: DOCUSATE SODIUM 100 MG/10 ML LIQUID UDC GT SCH ×2 (09:09→21:29)
[2022-09-05] MEDS: FLUTICASONE PROP NASAL SPRAY 16 GM BOTTLE NS SCH (09:10)
[2022-09-05] MEDS: REMEDY ESSENTIAL ZINC PASTE 113 GM TP SCH ×2 (09:10→21:29)
[2022-09-05] MEDS: ENOXAPARIN SODIUM 40 MG/0.4 ML DISP.SYRIN SQ SCH (09:10)
[2022-09-05] MEDS: DICLOFENAC SODIUM 100 GM GEL..GRAM. TP SCH ×2 (09:10→21:29)
[2022-09-05] MEDS: CHLORHEXIDINE GLUCONATE 15 ML MOUTHWASH MM SCH ×2 (09:10→17:22)
[2022-09-05] MEDS: HYDROGEN PEROXIDE 3% 118 ML BOTTLE TP SCH ×2 (10:10→20:15)
[2022-09-05 20:37] VITALS: TEMP 98.9
[2022-09-05] MEDS: hydrOXYzine HCL 25 MG TABLET GT SCH (21:29)
[2022-09-05] MEDS: MELATONIN 3 MG TABLET GT SCH (21:29)
[2022-09-05] MEDS: CLOTRIMAZOLE 1% VAG CREAM 45 GM TUBE VG SCH (21:30)
[2022-09-06] MEDS: IPRATROPIUM BROMIDE 0.5 MG/2.5 ML NEBU NEB SCH ×4 (02:26→19:40)
[2022-09-06] MEDS: JEVITY 1.2 1000 ML LIQUID GT PRN (03:47)
[2022-09-06] MEDS: HYDROMORPHONE HCL 2 MG TABLET GT PRN ×4 (04:30→22:30)
[2022-09-06] MEDS: POLYVINYL ALCOHOL OPHT DROPS 15 ML BOTTLE EACHEYE PRN (04:40)
[2022-09-06] MEDS: GABAPENTIN 300 MG/6 ML GT SCH ×3 (05:19→21:00)
[2022-09-06] MEDS: OMEPRAZOLE 20 MG CAPSULE.DR GT SCH (05:19)
[2022-09-06] MEDS: RILUZOLE 50 MG TAB GT SCH ×2 (05:19→18:16)
[2022-09-06] MEDS: HYDROGEN PEROXIDE 3% 118 ML BOTTLE TP SCH ×2 (07:14→21:00)
[2022-09-06 08:00] VITALS: TEMP 98
[2022-09-06] MEDS: FLUOXETINE HCL 40 MG CAPSULE GT SCH (09:12)
[2022-09-06] MEDS: DICLOFENAC SODIUM 100 GM GEL..GRAM. TP SCH ×2 (09:12→21:00)
[2022-09-06] MEDS: DOCUSATE SODIUM 100 MG/10 ML LIQUID UDC GT SCH ×2 (09:12→21:00)
[2022-09-06] MEDS: CHLORHEXIDINE GLUCONATE 15 ML MOUTHWASH MM SCH ×2 (09:12→17:29)
[2022-09-06] MEDS: FLUTICASONE PROP NASAL SPRAY 16 GM BOTTLE NS SCH (09:12)
[2022-09-06] MEDS: REMEDY ESSENTIAL ZINC PASTE 113 GM TP SCH ×2 (09:12→21:00)
[2022-09-06] MEDS: OLOPATADINE 0.1% OPHT DROP 5 ML BOTTLE EACHEYE SCH ×2 (09:12→17:29)
[2022-09-06] MEDS: LORATADINE 10 MG TABLET GT SCH (09:12)
[2022-09-06] MEDS: ENOXAPARIN SODIUM 40 MG/0.4 ML DISP.SYRIN SQ SCH (09:12)
[2022-09-06] MEDS: LORAZEPAM 1 MG TABLET GT PRN ×2 (11:30→22:30)
[2022-09-06 19:50] VITALS: TEMP 98.1
[2022-09-06] MEDS: MELATONIN 3 MG TABLET GT SCH (21:00)
[2022-09-06] MEDS: CLOTRIMAZOLE 1% VAG CREAM 45 GM TUBE VG SCH (21:00)
[2022-09-06] MEDS: hydrOXYzine HCL 25 MG TABLET GT SCH (21:00)
[2022-09-07] MEDS: IPRATROPIUM BROMIDE 0.5 MG/2.5 ML NEBU NEB SCH ×4 (01:43→19:06)
[2022-09-07] MEDS: JEVITY 1.2 1000 ML LIQUID GT PRN (04:04)
[2022-09-07] MEDS: HYDROMORPHONE HCL 2 MG TABLET GT PRN ×4 (04:45→20:30)
[2022-09-07] MEDS: OMEPRAZOLE 20 MG CAPSULE.DR GT SCH (05:52)
[2022-09-07] MEDS: RILUZOLE 50 MG TAB GT SCH ×2 (05:52→17:27)
[2022-09-07] MEDS: GABAPENTIN 300 MG/6 ML GT SCH ×3 (05:52→21:22)
[2022-09-07] MEDS: HYDROGEN PEROXIDE 3% 118 ML BOTTLE TP SCH ×2 (07:32→19:06)
[2022-09-07 08:00] VITALS: TEMP 98.2
[2022-09-07] MEDS: OLOPATADINE 0.1% OPHT DROP 5 ML BOTTLE EACHEYE SCH ×2 (09:13→17:27)
[2022-09-07] MEDS: DOCUSATE SODIUM 100 MG/10 ML LIQUID UDC GT SCH ×2 (09:14→21:22)
[2022-09-07] MEDS: LORATADINE 10 MG TABLET GT SCH (09:14)
[2022-09-07] MEDS: CHLORHEXIDINE GLUCONATE 15 ML MOUTHWASH MM SCH ×2 (09:14→17:27)
[2022-09-07] MEDS: FLUOXETINE HCL 40 MG CAPSULE GT SCH (09:14)
[2022-09-07] MEDS: FLUTICASONE PROP NASAL SPRAY 16 GM BOTTLE NS SCH (09:15)
[2022-09-07] MEDS: DICLOFENAC SODIUM 100 GM GEL..GRAM. TP SCH ×2 (09:16→21:22)
[2022-09-07] MEDS: REMEDY ESSENTIAL ZINC PASTE 113 GM TP SCH ×2 (09:16→21:23)
[2022-09-07] MEDS: ENOXAPARIN SODIUM 40 MG/0.4 ML DISP.SYRIN SQ SCH (09:21)
[2022-09-07] MEDS: LORAZEPAM 1 MG TABLET GT PRN ×2 (12:10→20:30)
[2022-09-07] MEDS: ACETAMINOPHEN 650 MG/20 ML UDC- SA PATIENTS-PAIN ONLY GT PRN (12:12)
[2022-09-07 20:00] VITALS: TEMP 98.1
[2022-09-07] MEDS: MELATONIN 3 MG TABLET GT SCH (21:22)
[2022-09-07] MEDS: hydrOXYzine HCL 25 MG TABLET GT SCH (21:22)
[2022-09-07] MEDS: CLOTRIMAZOLE 1% VAG CREAM 45 GM TUBE VG SCH (21:23)
[2022-09-08] MEDS: IPRATROPIUM BROMIDE 0.5 MG/2.5 ML NEBU NEB SCH ×4 (00:41→19:18)
[2022-09-08] MEDS: JEVITY 1.2 1000 ML LIQUID GT PRN (03:17)
[2022-09-08] MEDS: HYDROMORPHONE HCL 2 MG TABLET GT PRN ×5 (03:25→22:09)
[2022-09-08] MEDS: OMEPRAZOLE 20 MG CAPSULE.DR GT SCH (05:47)
[2022-09-08] MEDS: GABAPENTIN 300 MG/6 ML GT SCH ×3 (05:47→21:55)
[2022-09-08] MEDS: RILUZOLE 50 MG TAB GT SCH ×2 (05:47→17:32)
[2022-09-08 07:47] VITALS: TEMP 97.8
[2022-09-08] MEDS: HYDROGEN PEROXIDE 3% 118 ML BOTTLE TP SCH ×2 (09:00→19:18)
[2022-09-08] MEDS: LORATADINE 10 MG TABLET GT SCH (09:33)
[2022-09-08] MEDS: CHLORHEXIDINE GLUCONATE 15 ML MOUTHWASH MM SCH ×2 (09:33→17:32)
[2022-09-08] MEDS: DOCUSATE SODIUM 100 MG/10 ML LIQUID UDC GT SCH ×2 (09:33→21:55)
[2022-09-08] MEDS: OLOPATADINE 0.1% OPHT DROP 5 ML BOTTLE EACHEYE SCH ×2 (09:33→17:32)
[2022-09-08] MEDS: FLUOXETINE HCL 40 MG CAPSULE GT SCH (09:33)
[2022-09-08] MEDS: REMEDY ESSENTIAL ZINC PASTE 113 GM TP SCH ×2 (09:34→21:55)
[2022-09-08] MEDS: DICLOFENAC SODIUM 100 GM GEL..GRAM. TP SCH ×2 (09:34→21:55)
[2022-09-08] MEDS: FLUTICASONE PROP NASAL SPRAY 16 GM BOTTLE NS SCH (09:34)
[2022-09-08] MEDS: LORAZEPAM 1 MG TABLET GT PRN ×3 (09:35→22:08)
[2022-09-08] MEDS: ENOXAPARIN SODIUM 40 MG/0.4 ML DISP.SYRIN SQ SCH (09:35)
[2022-09-08 20:12] VITALS: TEMP 98.5
[2022-09-08] MEDS: hydrOXYzine HCL 25 MG TABLET GT SCH (21:55)
[2022-09-08] MEDS: MELATONIN 3 MG TABLET GT SCH (21:55)
[2022-09-08] MEDS: CLOTRIMAZOLE 1% VAG CREAM 45 GM TUBE VG SCH (21:55)
[2022-09-09] MEDS: IPRATROPIUM BROMIDE 0.5 MG/2.5 ML NEBU NEB SCH ×4 (02:09→19:09)
[2022-09-09] MEDS: HYDROMORPHONE HCL 2 MG TABLET GT PRN ×5 (05:00→21:50)
[2022-09-09] MEDS: RILUZOLE 50 MG TAB GT SCH ×2 (05:36→17:28)
[2022-09-09] MEDS: OMEPRAZOLE 20 MG CAPSULE.DR GT SCH (05:36)
[2022-09-09] MEDS: GABAPENTIN 300 MG/6 ML GT SCH ×3 (05:36→21:52)
[2022-09-09] MEDS: JEVITY 1.2 1000 ML LIQUID GT PRN (05:37)
[2022-09-09 07:54] VITALS: TEMP 98.3
[2022-09-09] MEDS: HYDROGEN PEROXIDE 3% 118 ML BOTTLE TP SCH ×2 (08:49→19:09)
[2022-09-09] MEDS: LORATADINE 10 MG TABLET GT SCH (09:19)
[2022-09-09] MEDS: OLOPATADINE 0.1% OPHT DROP 5 ML BOTTLE EACHEYE SCH ×2 (09:19→17:28)
[2022-09-09] MEDS: DOCUSATE SODIUM 100 MG/10 ML LIQUID UDC GT SCH ×2 (09:19→21:52)
[2022-09-09] MEDS: LORAZEPAM 1 MG TABLET GT PRN ×2 (09:20→21:50)
[2022-09-09] MEDS: CHLORHEXIDINE GLUCONATE 15 ML MOUTHWASH MM SCH ×2 (09:21→17:28)
[2022-09-09] MEDS: FLUOXETINE HCL 40 MG CAPSULE GT SCH (09:21)
[2022-09-09] MEDS: FLUTICASONE PROP NASAL SPRAY 16 GM BOTTLE NS SCH (09:21)
[2022-09-09] MEDS: ENOXAPARIN SODIUM 40 MG/0.4 ML DISP.SYRIN SQ SCH (09:22)
[2022-09-09] MEDS: REMEDY ESSENTIAL ZINC PASTE 113 GM TP SCH ×2 (09:22→21:52)
[2022-09-09] MEDS: DICLOFENAC SODIUM 100 GM GEL..GRAM. TP SCH ×2 (09:22→21:52)
[2022-09-09 20:26] VITALS: TEMP 98.7
[2022-09-09] MEDS: MELATONIN 3 MG TABLET GT SCH (21:52)
[2022-09-09] MEDS: hydrOXYzine HCL 25 MG TABLET GT SCH (21:52)
[2022-09-09] MEDS: CLOTRIMAZOLE 1% VAG CREAM 45 GM TUBE VG SCH (21:52)
[2022-09-10] MEDS: IPRATROPIUM BROMIDE 0.5 MG/2.5 ML NEBU NEB SCH ×4 (01:08→19:09)
[2022-09-10] MEDS: HYDROMORPHONE HCL 2 MG TABLET GT PRN ×4 (04:30→22:00)
[2022-09-10] MEDS: JEVITY 1.2 1000 ML LIQUID GT PRN (04:40)
[2022-09-10] MEDS: RILUZOLE 50 MG TAB GT SCH ×2 (05:29→17:26)
[2022-09-10] MEDS: OMEPRAZOLE 20 MG CAPSULE.DR GT SCH (05:29)
[2022-09-10] MEDS: GABAPENTIN 300 MG/6 ML GT SCH ×3 (05:29→21:04)
[2022-09-10 07:33] VITALS: TEMP 98.2
[2022-09-10] MEDS: HYDROGEN PEROXIDE 3% 118 ML BOTTLE TP SCH ×2 (07:45→19:09)
[2022-09-10] MEDS: OLOPATADINE 0.1% OPHT DROP 5 ML BOTTLE EACHEYE SCH ×2 (09:20→16:54)
[2022-09-10] MEDS: DOCUSATE SODIUM 100 MG/10 ML LIQUID UDC GT SCH ×2 (09:20→21:04)
[2022-09-10] MEDS: LORATADINE 10 MG TABLET GT SCH (09:20)
[2022-09-10] MEDS: CHLORHEXIDINE GLUCONATE 15 ML MOUTHWASH MM SCH ×2 (09:21→16:54)
[2022-09-10] MEDS: REMEDY ESSENTIAL ZINC PASTE 113 GM TP SCH ×2 (09:21→21:05)
[2022-09-10] MEDS: FLUOXETINE HCL 40 MG CAPSULE GT SCH (09:21)
[2022-09-10] MEDS: FLUTICASONE PROP NASAL SPRAY 16 GM BOTTLE NS SCH (09:21)
[2022-09-10] MEDS: DICLOFENAC SODIUM 100 GM GEL..GRAM. TP SCH ×2 (09:21→21:05)
[2022-09-10] MEDS: ENOXAPARIN SODIUM 40 MG/0.4 ML DISP.SYRIN SQ SCH (09:21)
[2022-09-10] MEDS: LORAZEPAM 1 MG TABLET GT PRN ×2 (12:31→22:00)
[2022-09-10 20:00] VITALS: TEMP 98.8
[2022-09-10] MEDS: MELATONIN 3 MG TABLET GT SCH (21:04)
[2022-09-10] MEDS: hydrOXYzine HCL 25 MG TABLET GT SCH (21:04)
[2022-09-10] MEDS: CLOTRIMAZOLE 1% VAG CREAM 45 GM TUBE VG SCH (21:05)
[2022-09-11] MEDS: IPRATROPIUM BROMIDE 0.5 MG/2.5 ML NEBU NEB SCH ×4 (01:27→19:52)
[2022-09-11] MEDS: HYDROMORPHONE HCL 2 MG TABLET GT PRN ×4 (04:40→21:50)
[2022-09-11] MEDS: RILUZOLE 50 MG TAB GT SCH ×2 (05:46→17:09)
[2022-09-11] MEDS: OMEPRAZOLE 20 MG CAPSULE.DR GT SCH (05:46)
[2022-09-11] MEDS: GABAPENTIN 300 MG/6 ML GT SCH ×3 (05:46→21:48)
[2022-09-11 07:35] VITALS: TEMP 98.1
[2022-09-11] MEDS: HYDROGEN PEROXIDE 3% 118 ML BOTTLE TP SCH ×2 (07:45→21:00)
[2022-09-11] MEDS: LORATADINE 10 MG TABLET GT SCH (09:56)
[2022-09-11] MEDS: ENOXAPARIN SODIUM 40 MG/0.4 ML DISP.SYRIN SQ SCH (09:56)
[2022-09-11] MEDS: FLUTICASONE PROP NASAL SPRAY 16 GM BOTTLE NS SCH (09:56)
[2022-09-11] MEDS: FLUOXETINE HCL 40 MG CAPSULE GT SCH (09:56)
[2022-09-11] MEDS: DOCUSATE SODIUM 100 MG/10 ML LIQUID UDC GT SCH ×2 (09:56→21:48)
[2022-09-11] MEDS: OLOPATADINE 0.1% OPHT DROP 5 ML BOTTLE EACHEYE SCH ×2 (09:56→16:17)
[2022-09-11] MEDS: CHLORHEXIDINE GLUCONATE 15 ML MOUTHWASH MM SCH ×2 (09:56→16:17)
[2022-09-11] MEDS: REMEDY ESSENTIAL ZINC PASTE 113 GM TP SCH ×2 (09:56→21:49)
[2022-09-11] MEDS: DICLOFENAC SODIUM 100 GM GEL..GRAM. TP SCH ×2 (09:56→21:49)
[2022-09-11] MEDS: ACETAMINOPHEN 650 MG/20 ML UDC- SA PATIENTS-PAIN ONLY GT PRN (14:02)
[2022-09-11] MEDS: LORAZEPAM 1 MG TABLET GT PRN ×2 (16:30→21:50)
[2022-09-11 20:07] VITALS: TEMP 97.9
[2022-09-11] MEDS: MELATONIN 3 MG TABLET GT SCH (21:49)
[2022-09-11] MEDS: hydrOXYzine HCL 25 MG TABLET GT SCH (21:49)
[2022-09-11] MEDS: CLOTRIMAZOLE 1% VAG CREAM 45 GM TUBE VG SCH (21:49)
[2022-09-12] MEDS: IPRATROPIUM BROMIDE 0.5 MG/2.5 ML NEBU NEB SCH ×4 (01:52→20:00)
[2022-09-12] MEDS: GABAPENTIN 300 MG/6 ML GT SCH ×3 (05:15→21:00)
[2022-09-12] MEDS: OMEPRAZOLE 20 MG CAPSULE.DR GT SCH (05:15)
[2022-09-12] MEDS: RILUZOLE 50 MG TAB GT SCH ×2 (05:15→17:55)
[2022-09-12] MEDS: HYDROMORPHONE HCL 2 MG TABLET GT PRN ×4 (05:32→21:15)
[2022-09-12 07:44] VITALS: TEMP 97.9
[2022-09-12] MEDS: DOCUSATE SODIUM 100 MG/10 ML LIQUID UDC GT SCH ×2 (08:43→21:00)
[2022-09-12] MEDS: LORATADINE 10 MG TABLET GT SCH (08:43)
[2022-09-12] MEDS: CHLORHEXIDINE GLUCONATE 15 ML MOUTHWASH MM SCH ×2 (08:47→17:53)
[2022-09-12] MEDS: REMEDY ESSENTIAL ZINC PASTE 113 GM TP SCH ×2 (08:48→21:00)
[2022-09-12] MEDS: FLUTICASONE PROP NASAL SPRAY 16 GM BOTTLE NS SCH (08:48)
[2022-09-12] MEDS: DICLOFENAC SODIUM 100 GM GEL..GRAM. TP SCH ×2 (08:48→21:00)
[2022-09-12] MEDS: ENOXAPARIN SODIUM 40 MG/0.4 ML DISP.SYRIN SQ SCH (08:51)
[2022-09-12] MEDS: OLOPATADINE 0.1% OPHT DROP 5 ML BOTTLE EACHEYE SCH ×2 (09:00→17:53)
[2022-09-12] MEDS: FLUOXETINE HCL 40 MG CAPSULE GT SCH (09:01)
[2022-09-12] MEDS: HYDROGEN PEROXIDE 3% 118 ML BOTTLE TP SCH ×2 (09:42→21:07)
[2022-09-12] MEDS: LORAZEPAM 1 MG TABLET GT PRN ×2 (15:34→21:13)
[2022-09-12 19:51] VITALS: TEMP 98
[2022-09-12] MEDS: MELATONIN 3 MG TABLET GT SCH (21:00)
[2022-09-12] MEDS: hydrOXYzine HCL 25 MG TABLET GT SCH (21:00)
[2022-09-13] MEDS: IPRATROPIUM BROMIDE 0.5 MG/2.5 ML NEBU NEB SCH ×4 (01:00→20:10)
[2022-09-13] MEDS: ACETAMINOPHEN 650 MG/20 ML UDC- SA PATIENTS-PAIN ONLY GT PRN (06:00)
[2022-09-13] MEDS: OMEPRAZOLE 20 MG CAPSULE.DR GT SCH (06:28)
[2022-09-13] MEDS: GABAPENTIN 300 MG/6 ML GT SCH ×3 (06:28→20:48)
[2022-09-13] MEDS: RILUZOLE 50 MG TAB GT SCH ×2 (06:28→17:35)
[2022-09-13 08:00] VITALS: TEMP 97.6
[2022-09-13] MEDS: FLUTICASONE PROP NASAL SPRAY 16 GM BOTTLE NS SCH (09:00)
[2022-09-13] MEDS: LORATADINE 10 MG TABLET GT SCH (09:00)
[2022-09-13] MEDS: DOCUSATE SODIUM 100 MG/10 ML LIQUID UDC GT SCH ×2 (09:00→20:47)
[2022-09-13] MEDS: OLOPATADINE 0.1% OPHT DROP 5 ML BOTTLE EACHEYE SCH ×2 (09:00→17:28)
[2022-09-13] MEDS: ENOXAPARIN SODIUM 40 MG/0.4 ML DISP.SYRIN SQ SCH (09:00)
[2022-09-13] MEDS: REMEDY ESSENTIAL ZINC PASTE 113 GM TP SCH ×2 (09:00→20:50)
[2022-09-13] MEDS: CHLORHEXIDINE GLUCONATE 15 ML MOUTHWASH MM SCH ×2 (09:00→17:28)
[2022-09-13] MEDS: FLUOXETINE HCL 40 MG CAPSULE GT SCH (09:00)
[2022-09-13] MEDS: DICLOFENAC SODIUM 100 GM GEL..GRAM. TP SCH ×2 (09:00→20:49)
[2022-09-13] MEDS: HYDROGEN PEROXIDE 3% 118 ML BOTTLE TP SCH ×2 (09:30→21:00)
[2022-09-13] MEDS: HYDROMORPHONE HCL 2 MG TABLET GT PRN ×3 (10:17→21:14)
[2022-09-13] MEDS: LORAZEPAM 1 MG TABLET GT PRN ×3 (10:18→21:14)
[2022-09-13 20:07] VITALS: TEMP 98.2
[2022-09-13] MEDS: hydrOXYzine HCL 25 MG TABLET GT SCH (20:46)
[2022-09-13] MEDS: MELATONIN 3 MG TABLET GT SCH (20:49)
[2022-09-14] MEDS: IPRATROPIUM BROMIDE 0.5 MG/2.5 ML NEBU NEB SCH ×4 (01:42→19:30)
[2022-09-14] MEDS: HYDROMORPHONE HCL 2 MG TABLET GT PRN ×5 (03:36→22:00)
[2022-09-14] MEDS: JEVITY 1.2 1000 ML LIQUID GT PRN (03:45)
[2022-09-14] MEDS: GABAPENTIN 300 MG/6 ML GT SCH ×3 (05:30→21:59)
[2022-09-14] MEDS: OMEPRAZOLE 20 MG CAPSULE.DR GT SCH (05:30)
[2022-09-14] MEDS: RILUZOLE 50 MG TAB GT SCH ×2 (05:31→17:44)
[2022-09-14] MEDS: HYDROGEN PEROXIDE 3% 118 ML BOTTLE TP SCH ×2 (07:45→21:32)
[2022-09-14 08:00] VITALS: TEMP 98
[2022-09-14] MEDS: DICLOFENAC SODIUM 100 GM GEL..GRAM. TP SCH ×2 (09:00→21:59)
[2022-09-14] MEDS: OLOPATADINE 0.1% OPHT DROP 5 ML BOTTLE EACHEYE SCH ×2 (09:23→17:44)
[2022-09-14] MEDS: LORATADINE 10 MG TABLET GT SCH (09:27)
[2022-09-14] MEDS: FLUOXETINE HCL 40 MG CAPSULE GT SCH (09:28)
[2022-09-14] MEDS: DOCUSATE SODIUM 100 MG/10 ML LIQUID UDC GT SCH ×2 (09:28→21:59)
[2022-09-14] MEDS: FLUTICASONE PROP NASAL SPRAY 16 GM BOTTLE NS SCH (09:29)
[2022-09-14] MEDS: CHLORHEXIDINE GLUCONATE 15 ML MOUTHWASH MM SCH ×2 (09:29→17:44)
[2022-09-14] MEDS: REMEDY ESSENTIAL ZINC PASTE 113 GM TP SCH ×2 (09:32→21:59)
[2022-09-14] MEDS: ENOXAPARIN SODIUM 40 MG/0.4 ML DISP.SYRIN SQ SCH (09:32)
[2022-09-14] MEDS: LORAZEPAM 1 MG TABLET GT PRN ×2 (17:06→22:00)
[2022-09-14 20:00] VITALS: TEMP 98.3
[2022-09-14] MEDS: hydrOXYzine HCL 25 MG TABLET GT SCH (21:59)
[2022-09-14] MEDS: MELATONIN 3 MG TABLET GT SCH (21:59)
[2022-09-15] MEDS: IPRATROPIUM BROMIDE 0.5 MG/2.5 ML NEBU NEB SCH ×4 (01:08→19:16)
[2022-09-15] MEDS: HYDROMORPHONE HCL 2 MG TABLET GT PRN ×4 (04:08→21:00)
[2022-09-15] MEDS: GABAPENTIN 300 MG/6 ML GT SCH ×3 (05:17→20:33)
[2022-09-15] MEDS: OMEPRAZOLE 20 MG CAPSULE.DR GT SCH (05:18)
[2022-09-15] MEDS: JEVITY 1.2 1000 ML LIQUID GT PRN (05:20)
[2022-09-15] MEDS: RILUZOLE 50 MG TAB GT SCH ×2 (05:20→17:13)
[2022-09-15 08:00] VITALS: TEMP 97.8
[2022-09-15] MEDS: HYDROGEN PEROXIDE 3% 118 ML BOTTLE TP SCH ×2 (09:00→20:31)
[2022-09-15] MEDS: LORATADINE 10 MG TABLET GT SCH (09:04)
[2022-09-15] MEDS: OLOPATADINE 0.1% OPHT DROP 5 ML BOTTLE EACHEYE SCH ×2 (09:04→17:13)
[2022-09-15] MEDS: DOCUSATE SODIUM 100 MG/10 ML LIQUID UDC GT SCH ×2 (09:05→20:31)
[2022-09-15] MEDS: FLUTICASONE PROP NASAL SPRAY 16 GM BOTTLE NS SCH (09:06)
[2022-09-15] MEDS: CHLORHEXIDINE GLUCONATE 15 ML MOUTHWASH MM SCH ×2 (09:06→17:13)
[2022-09-15] MEDS: FLUOXETINE HCL 40 MG CAPSULE GT SCH (09:06)
[2022-09-15] MEDS: DICLOFENAC SODIUM 100 GM GEL..GRAM. TP SCH ×2 (09:07→20:34)
[2022-09-15] MEDS: REMEDY ESSENTIAL ZINC PASTE 113 GM TP SCH ×2 (09:07→20:34)
[2022-09-15] MEDS: ENOXAPARIN SODIUM 40 MG/0.4 ML DISP.SYRIN SQ SCH (09:07)
[2022-09-15] MEDS: LORAZEPAM 1 MG TABLET GT PRN ×2 (17:19→21:00)
[2022-09-15 20:00] VITALS: TEMP 97.6
[2022-09-15] MEDS: hydrOXYzine HCL 25 MG TABLET GT SCH (20:31)
[2022-09-15] MEDS: MELATONIN 3 MG TABLET GT SCH (20:33)
[2022-09-16] MEDS: IPRATROPIUM BROMIDE 0.5 MG/2.5 ML NEBU NEB SCH ×4 (01:29→19:30)
[2022-09-16] MEDS: JEVITY 1.2 1000 ML LIQUID GT PRN (03:30)
[2022-09-16] MEDS: HYDROMORPHONE HCL 2 MG TABLET GT PRN ×4 (03:30→22:00)
[2022-09-16] MEDS: OMEPRAZOLE 20 MG CAPSULE.DR GT SCH (05:48)
[2022-09-16] MEDS: GABAPENTIN 300 MG/6 ML GT SCH ×3 (05:48→21:58)
[2022-09-16] MEDS: RILUZOLE 50 MG TAB GT SCH ×2 (05:49→18:08)
[2022-09-16] MEDS: MAGNESIUM HYDROXIDE 30 ML LIQUID UDC GT PRN (05:55)
[2022-09-16 07:44] VITALS: TEMP 97.4
[2022-09-16] MEDS: HYDROGEN PEROXIDE 3% 118 ML BOTTLE TP SCH ×2 (09:00→21:04)
[2022-09-16] MEDS: DOCUSATE SODIUM 100 MG/10 ML LIQUID UDC GT SCH ×2 (09:04→21:58)
[2022-09-16] MEDS: FLUOXETINE HCL 40 MG CAPSULE GT SCH (09:04)
[2022-09-16] MEDS: LORATADINE 10 MG TABLET GT SCH (09:04)
[2022-09-16] MEDS: FLUTICASONE PROP NASAL SPRAY 16 GM BOTTLE NS SCH (09:04)
[2022-09-16] MEDS: OLOPATADINE 0.1% OPHT DROP 5 ML BOTTLE EACHEYE SCH ×2 (09:04→17:00)
[2022-09-16] MEDS: CHLORHEXIDINE GLUCONATE 15 ML MOUTHWASH MM SCH ×2 (09:04→17:00)
[2022-09-16] MEDS: DICLOFENAC SODIUM 100 GM GEL..GRAM. TP SCH ×2 (09:05→21:00)
[2022-09-16] MEDS: ENOXAPARIN SODIUM 40 MG/0.4 ML DISP.SYRIN SQ SCH (09:05)
[2022-09-16] MEDS: REMEDY ESSENTIAL ZINC PASTE 113 GM TP SCH ×2 (09:05→21:00)
[2022-09-16] MEDS: LORAZEPAM 1 MG TABLET GT PRN ×3 (10:08→22:00)
[2022-09-16] MEDS: hydrOXYzine HCL 25 MG TABLET GT SCH (21:58)
[2022-09-16] MEDS: MELATONIN 3 MG TABLET GT SCH (21:59)
[2022-09-16 22:58] VITALS: TEMP 98.2
[2022-09-17] MEDS: IPRATROPIUM BROMIDE 0.5 MG/2.5 ML NEBU NEB SCH ×4 (00:45→19:20)
[2022-09-17] MEDS: HYDROMORPHONE HCL 2 MG TABLET GT PRN ×6 (03:25→23:00)
[2022-09-17] MEDS: JEVITY 1.2 1000 ML LIQUID GT PRN (03:28)
[2022-09-17] MEDS: OMEPRAZOLE 20 MG CAPSULE.DR GT SCH (05:08)
[2022-09-17] MEDS: GABAPENTIN 300 MG/6 ML GT SCH ×3 (05:08→21:30)
[2022-09-17] MEDS: RILUZOLE 50 MG TAB GT SCH ×2 (05:08→17:43)
[2022-09-17 07:47] VITALS: TEMP 97.7
[2022-09-17] MEDS: DOCUSATE SODIUM 100 MG/10 ML LIQUID UDC GT SCH ×2 (08:48→21:30)
[2022-09-17] MEDS: LORATADINE 10 MG TABLET GT SCH (08:48)
[2022-09-17] MEDS: OLOPATADINE 0.1% OPHT DROP 5 ML BOTTLE EACHEYE SCH ×2 (08:48→17:43)
[2022-09-17] MEDS: FLUOXETINE HCL 40 MG CAPSULE GT SCH (08:48)
[2022-09-17] MEDS: CHLORHEXIDINE GLUCONATE 15 ML MOUTHWASH MM SCH ×2 (08:48→17:43)
[2022-09-17] MEDS: ENOXAPARIN SODIUM 40 MG/0.4 ML DISP.SYRIN SQ SCH (08:49)
[2022-09-17] MEDS: FLUTICASONE PROP NASAL SPRAY 16 GM BOTTLE NS SCH (08:49)
[2022-09-17] MEDS: DICLOFENAC SODIUM 100 GM GEL..GRAM. TP SCH ×2 (08:49→21:31)
[2022-09-17] MEDS: REMEDY ESSENTIAL ZINC PASTE 113 GM TP SCH ×2 (08:50→21:31)
[2022-09-17] MEDS: LORAZEPAM 1 MG TABLET GT PRN ×2 (09:04→21:18)
[2022-09-17] MEDS: HYDROGEN PEROXIDE 3% 118 ML BOTTLE TP SCH ×2 (10:10→21:56)
[2022-09-17 20:02] VITALS: TEMP 97.8
[2022-09-17] MEDS: MELATONIN 3 MG TABLET GT SCH (21:30)
[2022-09-17] MEDS: hydrOXYzine HCL 25 MG TABLET GT SCH (21:30)
[2022-09-18] MEDS: IPRATROPIUM BROMIDE 0.5 MG/2.5 ML NEBU NEB SCH ×4 (01:28→19:29)
[2022-09-18] MEDS: LORAZEPAM 1 MG TABLET GT PRN ×4 (02:59→21:18)
[2022-09-18] MEDS: JEVITY 1.2 1000 ML LIQUID GT PRN (05:24)
[2022-09-18] MEDS: GABAPENTIN 300 MG/6 ML GT SCH ×3 (06:14→20:29)
[2022-09-18] MEDS: RILUZOLE 50 MG TAB GT SCH ×2 (06:15→17:03)
[2022-09-18] MEDS: OMEPRAZOLE 20 MG CAPSULE.DR GT SCH (06:15)
[2022-09-18] MEDS: HYDROGEN PEROXIDE 3% 118 ML BOTTLE TP SCH ×2 (07:21→19:29)
[2022-09-18 07:55] VITALS: TEMP 97.9
[2022-09-18 08:02] LABS: *BILIRUBIN,URIN NEGATIVE (NEGATIVE); *BLOOD, URINE 1+ (NEGATIVE); *CLARITY,URINE CLEAR (CLEAR); *COLOR,URINE YELLOW (YELLOW); *KETONES,URINE NEGATIVE (NEGATIVE); *PROTEIN,URINE NEGATIVE (NEGATIVE); *UROBILINOGEN,URINE 0.2 E.U./dl (NORMAL); LEUKOCYTE ESTERASE ,URINE 3+ (NEGATIVE); NITRITE, URINE NEGATIVE (NEGATIVE); PH,URINE 7.5 (5.0-8.0); UGLUCOSE NEGATIVE (NEGATIVE)
[2022-09-18 08:26] LABS: BACTERIA,URINE MANY /HPF (NONE SEEN); SQUAMOUS EPITHELIAL CELL,UR FEW /HPF (NONE SEEN)
[2022-09-18 08:27] LABS: TRIPLE PHOSPHATE CRYSTAL,UR MODERATE /HPF (NONE SEEN); URINE AMORPHOUS PHOSPHATES MANY /HPF
[2022-09-18] MEDS: LORATADINE 10 MG TABLET GT SCH (09:46)
[2022-09-18] MEDS: OLOPATADINE 0.1% OPHT DROP 5 ML BOTTLE EACHEYE SCH ×2 (09:46→17:03)
[2022-09-18] MEDS: DOCUSATE SODIUM 100 MG/10 ML LIQUID UDC GT SCH ×2 (09:47→20:22)
[2022-09-18] MEDS: FLUOXETINE HCL 40 MG CAPSULE GT SCH (09:47)
[2022-09-18] MEDS: FLUTICASONE PROP NASAL SPRAY 16 GM BOTTLE NS SCH (09:48)
[2022-09-18] MEDS: REMEDY ESSENTIAL ZINC PASTE 113 GM TP SCH ×2 (09:48→20:22)
[2022-09-18] MEDS: DICLOFENAC SODIUM 100 GM GEL..GRAM. TP SCH ×2 (09:48→20:22)
[2022-09-18] MEDS: CHLORHEXIDINE GLUCONATE 15 ML MOUTHWASH MM SCH ×2 (09:48→17:03)
[2022-09-18] MEDS: HYDROMORPHONE HCL 2 MG TABLET GT PRN ×3 (09:54→20:30)
[2022-09-18] MEDS: ENOXAPARIN SODIUM 40 MG/0.4 ML DISP.SYRIN SQ SCH (09:58)
[2022-09-18 13:30] LABS: BASOPHILS % (AUTO) 0.2 % (0.0-2.0); EOSINOPHILS # (AUTO) 0.1 K/uL (0.0-0.7); EOSINOPHILS % (AUTO) 1.1 % (0.0-7.0); HEMATOCRIT 37.8 % (31.2-41.9); HEMOGLOBIN 12.9 g/dL (10.9-14.3); LYMPHOCYTES # (AUTO) 1.2 K/uL (0.8-4.8); LYMPHOCYTES % (AUTO) 24.3 % (20.5-51.5); MEAN CORPUSCULAR HEMOGLOBIN 31.7 uug (24.7-32.8); MEAN CORPUSCULAR HGB CONC 34 g/dL (32.3-35.6); MEAN CORPUSCULAR VOLUME 93.1 fL (75.5-95.3); MONOCYTES # (AUTO) 0.3 K/uL (0.1-1.30); NEUTROPHILS # (AUTO) 3.5 K/uL (1.8-8.9); NEUTROPHILS % (AUTO) 68.4 % (38.5-71.5); PLATELET COUNT (AUTO) 210 K/uL (179-408); RED BLOOD CELL COUNT(AUTO) 4.06 MIL/uL (3.63-4.92); RED CELL DISTRIBUTION WIDTH 12.9 % (12.3-17.7)
[2022-09-18 13:32] LABS: DIFFERENTIAL COMMENT 1
[2022-09-18 13:55] LABS: ALANINE AMINOTRANSFERASE 34 U/L (14-59); ALBUMIN 3.7 g/dL (3.4-5.0); ALKALINE PHOSPHATASE 117 U/L (50-136); ASPARTATE AMINOTRANSFERASE 14 U/L (15-37); BILIRUBIN,TOTAL 0.4 mg/dL (0.2-1.0); CALCIUM 9.3 mg/dL (8.5-10.1); CARBON DIOXIDE 38 mmol/L (21-32); CHLORIDE 95 mmol/L (98-107); CREATININE 0.3 mg/dL (0.6-1.3); GLUCOSE 144 mg/dL (74-106); POTASSIUM 3.8 mmol/L (3.5-5.1); SODIUM SERUM 137 mmol/L (136-145); TOTAL PROTEIN, SERUM 7.8 g/dL (6.4-8.2); UREA NITROGEN, BLOOD 12 mg/dL (7-18)
[2022-09-18 20:00] VITALS: TEMP 98.7
[2022-09-18] MEDS: hydrOXYzine HCL 25 MG TABLET GT SCH (20:22)
[2022-09-18] MEDS: MELATONIN 3 MG TABLET GT SCH (20:24)
[2022-09-19] MEDS: IPRATROPIUM BROMIDE 0.5 MG/2.5 ML NEBU NEB SCH ×4 (01:32→18:59)
[2022-09-19] MEDS: HYDROMORPHONE HCL 2 MG TABLET GT PRN ×4 (03:16→21:44)
[2022-09-19] MEDS: JEVITY 1.2 1000 ML LIQUID GT PRN (06:45)
[2022-09-19] MEDS: GABAPENTIN 300 MG/6 ML GT SCH ×3 (06:45→20:50)
[2022-09-19] MEDS: OMEPRAZOLE 20 MG CAPSULE.DR GT SCH (06:45)
[2022-09-19] MEDS: RILUZOLE 50 MG TAB GT SCH ×2 (06:45→17:44)
[2022-09-19 08:00] VITALS: TEMP 99.2
[2022-09-19] MEDS: LORATADINE 10 MG TABLET GT SCH (09:15)
[2022-09-19] MEDS: DOCUSATE SODIUM 100 MG/10 ML LIQUID UDC GT SCH ×2 (09:15→20:49)
[2022-09-19] MEDS: OLOPATADINE 0.1% OPHT DROP 5 ML BOTTLE EACHEYE SCH ×2 (09:15→17:43)
[2022-09-19] MEDS: REMEDY ESSENTIAL ZINC PASTE 113 GM TP SCH ×2 (09:16→20:50)
[2022-09-19] MEDS: DICLOFENAC SODIUM 100 GM GEL..GRAM. TP SCH ×2 (09:16→20:50)
[2022-09-19] MEDS: FLUOXETINE HCL 40 MG CAPSULE GT SCH (09:16)
[2022-09-19] MEDS: CHLORHEXIDINE GLUCONATE 15 ML MOUTHWASH MM SCH ×2 (09:16→17:44)
[2022-09-19] MEDS: FLUTICASONE PROP NASAL SPRAY 16 GM BOTTLE NS SCH (09:16)
[2022-09-19] MEDS: ENOXAPARIN SODIUM 40 MG/0.4 ML DISP.SYRIN SQ SCH (09:19)
[2022-09-19] MEDS: HYDROGEN PEROXIDE 3% 118 ML BOTTLE TP SCH ×2 (09:33→18:59)
[2022-09-19] MEDS: LORAZEPAM 1 MG TABLET GT PRN ×2 (11:40→21:43)
[2022-09-19] MEDS: CEFTRIAXONE 1 G in IV DEXTROSE 5% 50 ML IV SCH (12:55)
[2022-09-19] MEDS ORDERED: FLUCONAZOLE 100 MG TABLET GT ONE (14:00)
[2022-09-19] MEDS: ACETAMINOPHEN 650 MG/20 ML UDC- SA PATIENTS-PAIN ONLY GT PRN (17:45)
[2022-09-19 19:59] VITALS: TEMP 98.2
[2022-09-19] MEDS: hydrOXYzine HCL 25 MG TABLET GT SCH (20:49)
[2022-09-19] MEDS: MELATONIN 3 MG TABLET GT SCH (20:50)
[2022-09-20] MEDS: IPRATROPIUM BROMIDE 0.5 MG/2.5 ML NEBU NEB SCH ×4 (01:09→19:28)
[2022-09-20] MEDS: HYDROMORPHONE HCL 2 MG TABLET GT PRN ×4 (02:46→21:34)
[2022-09-20] MEDS: OMEPRAZOLE 20 MG CAPSULE.DR GT SCH (05:07)
[2022-09-20] MEDS: RILUZOLE 50 MG TAB GT SCH ×2 (05:07→18:09)
[2022-09-20] MEDS: JEVITY 1.2 1000 ML LIQUID GT PRN (05:07)
[2022-09-20] MEDS: GABAPENTIN 300 MG/6 ML GT SCH ×3 (05:07→21:33)
[2022-09-20 08:00] VITALS: TEMP 98.9
[2022-09-20] MEDS: ENOXAPARIN SODIUM 40 MG/0.4 ML DISP.SYRIN SQ SCH (09:27)
[2022-09-20] MEDS: DOCUSATE SODIUM 100 MG/10 ML LIQUID UDC GT SCH ×2 (09:27→21:00)
[2022-09-20] MEDS: LORATADINE 10 MG TABLET GT SCH (09:27)
[2022-09-20] MEDS: DICLOFENAC SODIUM 100 GM GEL..GRAM. TP SCH ×2 (09:27→21:33)
[2022-09-20] MEDS: OLOPATADINE 0.1% OPHT DROP 5 ML BOTTLE EACHEYE SCH ×2 (09:27→18:00)
[2022-09-20] MEDS: CHLORHEXIDINE GLUCONATE 15 ML MOUTHWASH MM SCH ×2 (09:27→18:00)
[2022-09-20] MEDS: FLUTICASONE PROP NASAL SPRAY 16 GM BOTTLE NS SCH (09:27)
[2022-09-20] MEDS: FLUOXETINE HCL 40 MG CAPSULE GT SCH (09:27)
[2022-09-20] MEDS: REMEDY ESSENTIAL ZINC PASTE 113 GM TP SCH ×2 (09:27→21:34)
[2022-09-20] MEDS: LORAZEPAM 1 MG TABLET GT PRN ×2 (09:30→21:34)
[2022-09-20] MEDS: HYDROGEN PEROXIDE 3% 118 ML BOTTLE TP SCH ×2 (09:33→19:28)
[2022-09-20] MEDS: CEFTRIAXONE 1 G in IV DEXTROSE 5% 50 ML IV SCH (12:05)
[2022-09-20] MEDS: ACETAMINOPHEN 650 MG/20 ML UDC- SA PATIENTS-PAIN ONLY GT PRN (18:14)
[2022-09-20 20:00] VITALS: TEMP 98.4
[2022-09-20] MEDS: MELATONIN 3 MG TABLET GT SCH (21:33)
[2022-09-20] MEDS: hydrOXYzine HCL 25 MG TABLET GT SCH (21:33)
[2022-09-21] MEDS: IPRATROPIUM BROMIDE 0.5 MG/2.5 ML NEBU NEB SCH ×4 (01:32→19:09)
[2022-09-21] MEDS: LORAZEPAM 1 MG TABLET GT PRN ×4 (03:23→21:51)
[2022-09-21] MEDS: JEVITY 1.2 1000 ML LIQUID GT PRN (03:30)
[2022-09-21] MEDS: HYDROMORPHONE HCL 2 MG TABLET GT PRN ×5 (03:35→21:52)
[2022-09-21] MEDS: GABAPENTIN 300 MG/6 ML GT SCH ×3 (05:34→21:00)
[2022-09-21] MEDS: OMEPRAZOLE 20 MG CAPSULE.DR GT SCH (05:34)
[2022-09-21] MEDS: RILUZOLE 50 MG TAB GT SCH ×2 (05:35→17:25)
[2022-09-21] MEDS: HYDROGEN PEROXIDE 3% 118 ML BOTTLE TP SCH ×2 (07:35→19:09)
[2022-09-21 08:00] VITALS: TEMP 98.5
[2022-09-21] MEDS: ENOXAPARIN SODIUM 40 MG/0.4 ML DISP.SYRIN SQ SCH (08:59)
[2022-09-21] MEDS: DOCUSATE SODIUM 100 MG/10 ML LIQUID UDC GT SCH ×2 (09:09→21:00)
[2022-09-21] MEDS: LORATADINE 10 MG TABLET GT SCH (09:09)
[2022-09-21] MEDS: OLOPATADINE 0.1% OPHT DROP 5 ML BOTTLE EACHEYE SCH ×2 (09:09→17:25)
[2022-09-21] MEDS: FLUOXETINE HCL 40 MG CAPSULE GT SCH (09:10)
[2022-09-21] MEDS: DICLOFENAC SODIUM 100 GM GEL..GRAM. TP SCH ×2 (09:11→21:00)
[2022-09-21] MEDS: CHLORHEXIDINE GLUCONATE 15 ML MOUTHWASH MM SCH ×2 (09:11→17:25)
[2022-09-21] MEDS: REMEDY ESSENTIAL ZINC PASTE 113 GM TP SCH ×2 (09:11→21:00)
[2022-09-21] MEDS: FLUTICASONE PROP NASAL SPRAY 16 GM BOTTLE NS SCH (09:11)
[2022-09-21] MEDS: CEFTRIAXONE 1 G in IV DEXTROSE 5% 50 ML IV SCH (12:00)
[2022-09-21 20:00] VITALS: TEMP 98.3
[2022-09-21] MEDS: MELATONIN 3 MG TABLET GT SCH (21:00)
[2022-09-21] MEDS: hydrOXYzine HCL 25 MG TABLET GT SCH (21:00)
[2022-09-22] MEDS: IPRATROPIUM BROMIDE 0.5 MG/2.5 ML NEBU NEB SCH ×4 (00:57→19:35)
[2022-09-22] MEDS: HYDROMORPHONE HCL 2 MG TABLET GT PRN ×4 (02:47→20:59)
[2022-09-22] MEDS: ACETAMINOPHEN 650 MG/20 ML UDC- SA PATIENTS-PAIN ONLY GT PRN (05:06)
[2022-09-22] MEDS: LORAZEPAM 1 MG TABLET GT PRN ×4 (05:07→20:59)
[2022-09-22] MEDS: OMEPRAZOLE 20 MG CAPSULE.DR GT SCH (05:32)
[2022-09-22] MEDS: GABAPENTIN 300 MG/6 ML GT SCH ×3 (05:32→20:49)
[2022-09-22] MEDS: RILUZOLE 50 MG TAB GT SCH ×2 (05:32→18:49)
[2022-09-22 08:00] VITALS: TEMP 97.2
[2022-09-22] MEDS: LORATADINE 10 MG TABLET GT SCH (09:34)
[2022-09-22] MEDS: OLOPATADINE 0.1% OPHT DROP 5 ML BOTTLE EACHEYE SCH ×2 (09:34→17:00)
[2022-09-22] MEDS: CHLORHEXIDINE GLUCONATE 15 ML MOUTHWASH MM SCH ×2 (09:35→17:00)
[2022-09-22] MEDS: FLUOXETINE HCL 40 MG CAPSULE GT SCH (09:35)
[2022-09-22] MEDS: DOCUSATE SODIUM 100 MG/10 ML LIQUID UDC GT SCH ×2 (09:35→20:49)
[2022-09-22] MEDS: REMEDY ESSENTIAL ZINC PASTE 113 GM TP SCH ×2 (09:36→20:51)
[2022-09-22] MEDS: DICLOFENAC SODIUM 100 GM GEL..GRAM. TP SCH ×2 (09:36→20:51)
[2022-09-22] MEDS: FLUTICASONE PROP NASAL SPRAY 16 GM BOTTLE NS SCH (09:36)
[2022-09-22] MEDS: ENOXAPARIN SODIUM 40 MG/0.4 ML DISP.SYRIN SQ SCH (09:37)
[2022-09-22] MEDS: HYDROGEN PEROXIDE 3% 118 ML BOTTLE TP SCH ×2 (09:50→21:51)
[2022-09-22 20:00] VITALS: TEMP 97.8
[2022-09-22] MEDS: hydrOXYzine HCL 25 MG TABLET GT SCH (20:49)
[2022-09-22] MEDS: MELATONIN 3 MG TABLET GT SCH (20:50)
[2022-09-23] MEDS: IPRATROPIUM BROMIDE 0.5 MG/2.5 ML NEBU NEB SCH ×4 (01:42→19:15)
[2022-09-23] MEDS: HYDROMORPHONE HCL 2 MG TABLET GT PRN ×4 (05:30→21:28)
[2022-09-23] MEDS: RILUZOLE 50 MG TAB GT SCH ×2 (06:53→17:35)
[2022-09-23] MEDS: GABAPENTIN 300 MG/6 ML GT SCH ×3 (06:53→21:28)
[2022-09-23] MEDS: OMEPRAZOLE 20 MG CAPSULE.DR GT SCH (06:53)
[2022-09-23] MEDS: JEVITY 1.2 1000 ML LIQUID GT PRN (06:53)
[2022-09-23] MEDS: HYDROGEN PEROXIDE 3% 118 ML BOTTLE TP SCH ×2 (07:11→21:45)
[2022-09-23 08:00] VITALS: TEMP 97.6
[2022-09-23] MEDS: ENOXAPARIN SODIUM 40 MG/0.4 ML DISP.SYRIN SQ SCH (08:40)
[2022-09-23] MEDS: OLOPATADINE 0.1% OPHT DROP 5 ML BOTTLE EACHEYE SCH ×2 (08:43→16:54)
[2022-09-23] MEDS: LORATADINE 10 MG TABLET GT SCH (08:44)
[2022-09-23] MEDS: DOCUSATE SODIUM 100 MG/10 ML LIQUID UDC GT SCH ×2 (08:44→21:28)
[2022-09-23] MEDS: CHLORHEXIDINE GLUCONATE 15 ML MOUTHWASH MM SCH ×2 (08:45→16:54)
[2022-09-23] MEDS: DICLOFENAC SODIUM 100 GM GEL..GRAM. TP SCH ×2 (08:46→21:28)
[2022-09-23] MEDS: FLUTICASONE PROP NASAL SPRAY 16 GM BOTTLE NS SCH (08:46)
[2022-09-23] MEDS: REMEDY ESSENTIAL ZINC PASTE 113 GM TP SCH ×2 (08:46→21:28)
[2022-09-23] MEDS: LORAZEPAM 1 MG TABLET GT PRN ×3 (08:48→21:25)
[2022-09-23] MEDS: FLUOXETINE HCL 20 MG CAPSULE GT SCH (08:48)
[2022-09-23 20:00] VITALS: TEMP 98.7
[2022-09-23] MEDS: MELATONIN 3 MG TABLET GT SCH (21:28)
[2022-09-23] MEDS: hydrOXYzine HCL 25 MG TABLET GT SCH (21:28)
[2022-09-24] MEDS: IPRATROPIUM BROMIDE 0.5 MG/2.5 ML NEBU NEB SCH ×4 (01:25→19:11)
[2022-09-24] MEDS: JEVITY 1.2 1000 ML LIQUID GT PRN (02:24)
[2022-09-24] MEDS: HYDROMORPHONE HCL 2 MG TABLET GT PRN ×4 (03:19→21:00)
[2022-09-24] MEDS: GABAPENTIN 300 MG/6 ML GT SCH ×3 (05:27→20:57)
[2022-09-24] MEDS: RILUZOLE 50 MG TAB GT SCH ×2 (05:27→17:36)
[2022-09-24] MEDS: OMEPRAZOLE 20 MG CAPSULE.DR GT SCH (05:27)
[2022-09-24] MEDS: HYDROGEN PEROXIDE 3% 118 ML BOTTLE TP SCH ×2 (07:26→19:11)
[2022-09-24 07:44] VITALS: TEMP 98
[2022-09-24] MEDS: OLOPATADINE 0.1% OPHT DROP 5 ML BOTTLE EACHEYE SCH ×2 (08:57→17:14)
[2022-09-24] MEDS: LORATADINE 10 MG TABLET GT SCH (08:57)
[2022-09-24] MEDS: DOCUSATE SODIUM 100 MG/10 ML LIQUID UDC GT SCH ×2 (08:57→20:57)
[2022-09-24] MEDS: FLUTICASONE PROP NASAL SPRAY 16 GM BOTTLE NS SCH (08:59)
[2022-09-24] MEDS: CHLORHEXIDINE GLUCONATE 15 ML MOUTHWASH MM SCH ×2 (08:59→17:14)
[2022-09-24] MEDS: FLUOXETINE HCL 20 MG CAPSULE GT SCH (08:59)
[2022-09-24] MEDS: REMEDY ESSENTIAL ZINC PASTE 113 GM TP SCH ×2 (09:01→20:57)
[2022-09-24] MEDS: ENOXAPARIN SODIUM 40 MG/0.4 ML DISP.SYRIN SQ SCH (09:01)
[2022-09-24] MEDS: DICLOFENAC SODIUM 100 GM GEL..GRAM. TP SCH ×2 (09:01→20:57)
[2022-09-24] MEDS: LORAZEPAM 1 MG TABLET GT PRN ×3 (09:03→21:00)
[2022-09-24] MEDS: ACETAMINOPHEN 650 MG/20 ML UDC- SA PATIENTS-PAIN ONLY GT PRN (17:45)
[2022-09-24 20:00] VITALS: TEMP 98.7
[2022-09-24] MEDS: hydrOXYzine HCL 25 MG TABLET GT SCH (20:57)
[2022-09-24] MEDS: MELATONIN 3 MG TABLET GT SCH (20:57)
[2022-09-25] MEDS: IPRATROPIUM BROMIDE 0.5 MG/2.5 ML NEBU NEB SCH ×4 (01:14→19:20)
[2022-09-25] MEDS: JEVITY 1.2 1000 ML LIQUID GT PRN (03:10)
[2022-09-25] MEDS: HYDROMORPHONE HCL 2 MG TABLET GT PRN ×4 (03:20→20:45)
[2022-09-25] MEDS: GABAPENTIN 300 MG/6 ML GT SCH ×3 (05:42→20:44)
[2022-09-25] MEDS: RILUZOLE 50 MG TAB GT SCH ×2 (05:42→17:31)
[2022-09-25] MEDS: OMEPRAZOLE 20 MG CAPSULE.DR GT SCH (05:42)
[2022-09-25] MEDS: LORAZEPAM 1 MG TABLET GT PRN ×4 (05:45→20:45)
[2022-09-25 07:58] VITALS: TEMP 97.5
[2022-09-25] MEDS: HYDROGEN PEROXIDE 3% 118 ML BOTTLE TP SCH ×2 (09:30→20:17)
[2022-09-25] MEDS: OLOPATADINE 0.1% OPHT DROP 5 ML BOTTLE EACHEYE SCH ×2 (09:48→17:31)
[2022-09-25] MEDS: LORATADINE 10 MG TABLET GT SCH (09:49)
[2022-09-25] MEDS: DOCUSATE SODIUM 100 MG/10 ML LIQUID UDC GT SCH ×2 (09:50→20:44)
[2022-09-25] MEDS: FLUOXETINE HCL 20 MG CAPSULE GT SCH (09:50)
[2022-09-25] MEDS: CHLORHEXIDINE GLUCONATE 15 ML MOUTHWASH MM SCH ×2 (09:51→17:31)
[2022-09-25] MEDS: FLUTICASONE PROP NASAL SPRAY 16 GM BOTTLE NS SCH (09:52)
[2022-09-25] MEDS: ENOXAPARIN SODIUM 40 MG/0.4 ML DISP.SYRIN SQ SCH (09:53)
[2022-09-25] MEDS: DICLOFENAC SODIUM 100 GM GEL..GRAM. TP SCH ×2 (09:53→20:44)
[2022-09-25] MEDS: REMEDY ESSENTIAL ZINC PASTE 113 GM TP SCH ×2 (09:53→20:44)
[2022-09-25] MEDS: BISACODYL 10 MG SUPP.RECT RC PRN (14:18)
[2022-09-25 19:55] VITALS: TEMP 97.7
[2022-09-25] MEDS: MELATONIN 3 MG TABLET GT SCH (20:44)
[2022-09-25] MEDS: hydrOXYzine HCL 25 MG TABLET GT SCH (20:44)
[2022-09-26] MEDS: IPRATROPIUM BROMIDE 0.5 MG/2.5 ML NEBU NEB SCH ×4 (01:55→19:25)
[2022-09-26] MEDS: JEVITY 1.2 1000 ML LIQUID GT PRN (02:33)
[2022-09-26] MEDS: HYDROMORPHONE HCL 2 MG TABLET GT PRN ×4 (02:45→20:14)
[2022-09-26] MEDS: LORAZEPAM 1 MG TABLET GT PRN ×4 (04:30→20:11)
[2022-09-26] MEDS: OMEPRAZOLE 20 MG CAPSULE.DR GT SCH (05:06)
[2022-09-26] MEDS: RILUZOLE 50 MG TAB GT SCH ×2 (05:06→17:35)
[2022-09-26] MEDS: GABAPENTIN 300 MG/6 ML GT SCH ×3 (05:06→20:02)
[2022-09-26 07:57] VITALS: TEMP 97.7
[2022-09-26] MEDS: HYDROGEN PEROXIDE 3% 118 ML BOTTLE TP SCH ×2 (08:57→20:02)
[2022-09-26] MEDS: DICLOFENAC SODIUM 100 GM GEL..GRAM. TP SCH ×2 (09:00→20:02)
[2022-09-26] MEDS: ENOXAPARIN SODIUM 40 MG/0.4 ML DISP.SYRIN SQ SCH (09:25)
[2022-09-26] MEDS: OLOPATADINE 0.1% OPHT DROP 5 ML BOTTLE EACHEYE SCH ×2 (09:27→17:35)
[2022-09-26] MEDS: LORATADINE 10 MG TABLET GT SCH (09:27)
[2022-09-26] MEDS: DOCUSATE SODIUM 100 MG/10 ML LIQUID UDC GT SCH ×2 (09:28→20:02)
[2022-09-26] MEDS: FLUOXETINE HCL 20 MG CAPSULE GT SCH (09:29)
[2022-09-26] MEDS: CHLORHEXIDINE GLUCONATE 15 ML MOUTHWASH MM SCH ×2 (09:29→17:35)
[2022-09-26] MEDS: FLUTICASONE PROP NASAL SPRAY 16 GM BOTTLE NS SCH (09:30)
[2022-09-26] MEDS: REMEDY ESSENTIAL ZINC PASTE 113 GM TP SCH ×2 (09:30→20:02)
[2022-09-26 19:55] VITALS: TEMP 98.2
[2022-09-26] MEDS: MELATONIN 3 MG TABLET GT SCH (20:02)
[2022-09-26] MEDS: hydrOXYzine HCL 25 MG TABLET GT SCH (20:02)
[2022-09-27] MEDS: IPRATROPIUM BROMIDE 0.5 MG/2.5 ML NEBU NEB SCH ×4 (00:40→19:21)
[2022-09-27] MEDS: HYDROMORPHONE HCL 2 MG TABLET GT PRN ×2 (02:11→21:20)
[2022-09-27] MEDS: JEVITY 1.2 1000 ML LIQUID GT PRN ×2 (02:20→23:13)
[2022-09-27] MEDS: LORAZEPAM 1 MG TABLET GT PRN ×2 (03:56→21:20)
[2022-09-27] MEDS: OMEPRAZOLE 20 MG CAPSULE.DR GT SCH (05:20)
[2022-09-27] MEDS: GABAPENTIN 300 MG/6 ML GT SCH ×3 (05:20→20:19)
[2022-09-27] MEDS: RILUZOLE 50 MG TAB GT SCH ×2 (05:21→17:25)
[2022-09-27 07:35] VITALS: TEMP 97.1
[2022-09-27] MEDS: REMEDY ESSENTIAL ZINC PASTE 113 GM TP SCH ×2 (09:00→20:20)
[2022-09-27] MEDS: FLUOXETINE HCL 20 MG CAPSULE GT SCH (09:00)
[2022-09-27] MEDS: OLOPATADINE 0.1% OPHT DROP 5 ML BOTTLE EACHEYE SCH ×2 (09:00→17:25)
[2022-09-27] MEDS: FLUTICASONE PROP NASAL SPRAY 16 GM BOTTLE NS SCH (09:00)
[2022-09-27] MEDS: LORATADINE 10 MG TABLET GT SCH (09:00)
[2022-09-27] MEDS: CHLORHEXIDINE GLUCONATE 15 ML MOUTHWASH MM SCH ×2 (09:00→17:25)
[2022-09-27] MEDS: DOCUSATE SODIUM 100 MG/10 ML LIQUID UDC GT SCH ×2 (09:00→20:19)
[2022-09-27] MEDS: DICLOFENAC SODIUM 100 GM GEL..GRAM. TP SCH ×2 (09:00→20:20)
[2022-09-27] MEDS: ENOXAPARIN SODIUM 40 MG/0.4 ML DISP.SYRIN SQ SCH (09:00)
[2022-09-27] MEDS: HYDROGEN PEROXIDE 3% 118 ML BOTTLE TP SCH ×2 (09:53→19:21)
[2022-09-27] MEDS: MELATONIN 3 MG TABLET GT SCH (20:19)
[2022-09-27] MEDS: hydrOXYzine HCL 25 MG TABLET GT SCH (20:19)
[2022-09-27 20:37] VITALS: TEMP 98.2
[2022-09-28] MEDS: IPRATROPIUM BROMIDE 0.5 MG/2.5 ML NEBU NEB SCH ×4 (01:54→19:43)
[2022-09-28] MEDS: HYDROMORPHONE HCL 2 MG TABLET GT PRN ×5 (03:27→21:50)
[2022-09-28] MEDS: RILUZOLE 50 MG TAB GT SCH ×2 (05:39→17:29)
[2022-09-28] MEDS: OMEPRAZOLE 20 MG CAPSULE.DR GT SCH (05:39)
[2022-09-28] MEDS: GABAPENTIN 300 MG/6 ML GT SCH ×3 (05:39→21:49)
[2022-09-28] MEDS: HYDROGEN PEROXIDE 3% 118 ML BOTTLE TP SCH ×2 (07:45→19:43)
[2022-09-28 08:00] VITALS: TEMP 98.8
[2022-09-28] MEDS: OLOPATADINE 0.1% OPHT DROP 5 ML BOTTLE EACHEYE SCH ×2 (09:22→17:28)
[2022-09-28] MEDS: DOCUSATE SODIUM 100 MG/10 ML LIQUID UDC GT SCH ×2 (09:23→21:49)
[2022-09-28] MEDS: LORATADINE 10 MG TABLET GT SCH (09:23)
[2022-09-28] MEDS: FLUOXETINE HCL 20 MG CAPSULE GT SCH (09:24)
[2022-09-28] MEDS: CHLORHEXIDINE GLUCONATE 15 ML MOUTHWASH MM SCH ×2 (09:26→17:29)
[2022-09-28] MEDS: FLUTICASONE PROP NASAL SPRAY 16 GM BOTTLE NS SCH (09:27)
[2022-09-28] MEDS: ENOXAPARIN SODIUM 40 MG/0.4 ML DISP.SYRIN SQ SCH (09:28)
[2022-09-28] MEDS: DICLOFENAC SODIUM 100 GM GEL..GRAM. TP SCH ×2 (09:29→21:50)
[2022-09-28] MEDS: REMEDY ESSENTIAL ZINC PASTE 113 GM TP SCH ×2 (09:29→21:50)
[2022-09-28] MEDS: LORAZEPAM 1 MG TABLET GT PRN ×2 (16:01→21:50)
[2022-09-28] MEDS: JEVITY 1.2 1000 ML LIQUID GT PRN (17:40)
[2022-09-28 19:56] VITALS: TEMP 98
[2022-09-28] MEDS: MELATONIN 3 MG TABLET GT SCH (21:49)
[2022-09-28] MEDS: hydrOXYzine HCL 25 MG TABLET GT SCH (21:49)
[2022-09-29] MEDS: IPRATROPIUM BROMIDE 0.5 MG/2.5 ML NEBU NEB SCH ×4 (01:40→19:20)
[2022-09-29] MEDS: HYDROMORPHONE HCL 2 MG TABLET GT PRN ×5 (04:36→21:30)
[2022-09-29] MEDS: MAGNESIUM HYDROXIDE 30 ML LIQUID UDC GT PRN (05:40)
[2022-09-29] MEDS: GABAPENTIN 300 MG/6 ML GT SCH ×3 (05:40→21:29)
[2022-09-29] MEDS: OMEPRAZOLE 20 MG CAPSULE.DR GT SCH (05:40)
[2022-09-29] MEDS: RILUZOLE 50 MG TAB GT SCH ×2 (05:40→17:18)
[2022-09-29 08:00] VITALS: TEMP 98.3
[2022-09-29] MEDS: HYDROGEN PEROXIDE 3% 118 ML BOTTLE TP SCH ×2 (09:00→21:29)
[2022-09-29] MEDS: DOCUSATE SODIUM 100 MG/10 ML LIQUID UDC GT SCH ×2 (09:16→21:28)
[2022-09-29] MEDS: LORATADINE 10 MG TABLET GT SCH (09:16)
[2022-09-29] MEDS: OLOPATADINE 0.1% OPHT DROP 5 ML BOTTLE EACHEYE SCH ×2 (09:16→17:16)
[2022-09-29] MEDS: FLUOXETINE HCL 20 MG CAPSULE GT SCH (09:17)
[2022-09-29] MEDS: CHLORHEXIDINE GLUCONATE 15 ML MOUTHWASH MM SCH ×2 (09:17→17:16)
[2022-09-29] MEDS: ENOXAPARIN SODIUM 40 MG/0.4 ML DISP.SYRIN SQ SCH (09:19)
[2022-09-29] MEDS: DICLOFENAC SODIUM 100 GM GEL..GRAM. TP SCH ×2 (09:19→21:29)
[2022-09-29] MEDS: FLUTICASONE PROP NASAL SPRAY 16 GM BOTTLE NS SCH (09:19)
[2022-09-29] MEDS: REMEDY ESSENTIAL ZINC PASTE 113 GM TP SCH ×2 (09:19→21:29)
[2022-09-29] MEDS: BISACODYL 10 MG SUPP.RECT RC PRN (11:36)
[2022-09-29] MEDS: ACETAMINOPHEN 650 MG/20 ML UDC- SA PATIENTS-PAIN ONLY GT PRN (11:52)
[2022-09-29] MEDS: LORAZEPAM 1 MG TABLET GT PRN ×2 (15:48→21:30)
[2022-09-29 19:50] VITALS: TEMP 97.5
[2022-09-29] MEDS: hydrOXYzine HCL 25 MG TABLET GT SCH (21:28)
[2022-09-29] MEDS: MELATONIN 3 MG TABLET GT SCH (21:29)
[2022-09-30] MEDS: IPRATROPIUM BROMIDE 0.5 MG/2.5 ML NEBU NEB SCH ×4 (01:15→19:20)
[2022-09-30] MEDS: HYDROMORPHONE HCL 2 MG TABLET GT PRN ×5 (05:10→22:30)
[2022-09-30] MEDS: RILUZOLE 50 MG TAB GT SCH ×2 (05:48→17:23)
[2022-09-30] MEDS: OMEPRAZOLE 20 MG CAPSULE.DR GT SCH (05:48)
[2022-09-30] MEDS: GABAPENTIN 300 MG/6 ML GT SCH ×3 (05:48→21:24)
[2022-09-30 08:05] VITALS: TEMP 98.3
[2022-09-30] MEDS: CHLORHEXIDINE GLUCONATE 15 ML MOUTHWASH MM SCH ×2 (09:24→17:01)
[2022-09-30] MEDS: FLUOXETINE HCL 20 MG CAPSULE GT SCH (09:24)
[2022-09-30] MEDS: DOCUSATE SODIUM 100 MG/10 ML LIQUID UDC GT SCH ×2 (09:24→21:24)
[2022-09-30] MEDS: ENOXAPARIN SODIUM 40 MG/0.4 ML DISP.SYRIN SQ SCH (09:24)
[2022-09-30] MEDS: OLOPATADINE 0.1% OPHT DROP 5 ML BOTTLE EACHEYE SCH ×2 (09:24→17:01)
[2022-09-30] MEDS: LORATADINE 10 MG TABLET GT SCH (09:24)
[2022-09-30] MEDS: REMEDY ESSENTIAL ZINC PASTE 113 GM TP SCH ×2 (09:24→21:24)
[2022-09-30] MEDS: DICLOFENAC SODIUM 100 GM GEL..GRAM. TP SCH ×2 (09:24→21:24)
[2022-09-30] MEDS: FLUTICASONE PROP NASAL SPRAY 16 GM BOTTLE NS SCH (09:24)
[2022-09-30] MEDS: HYDROGEN PEROXIDE 3% 118 ML BOTTLE TP SCH ×2 (09:56→21:37)
[2022-09-30] MEDS: LORAZEPAM 1 MG TABLET GT PRN ×2 (13:27→21:15)
[2022-09-30 19:43] VITALS: TEMP 98.7
[2022-09-30] MEDS: TERCONAZOLE VG SCH (21:00)
[2022-09-30] MEDS: MELATONIN 3 MG TABLET GT SCH (21:24)
[2022-09-30] MEDS: hydrOXYzine HCL 25 MG TABLET GT SCH (21:24)
[2022-10-01] MEDS: IPRATROPIUM BROMIDE 0.5 MG/2.5 ML NEBU NEB SCH ×4 (01:20→19:12)
[2022-10-01] MEDS: HYDROMORPHONE HCL 2 MG TABLET GT PRN ×9 (03:00→21:00)
[2022-10-01] MEDS: JEVITY 1.2 1000 ML LIQUID GT PRN ×2 (03:00→20:53)
[2022-10-01] MEDS: POLYVINYL ALCOHOL OPHT DROPS 15 ML BOTTLE EACHEYE PRN (03:09)
[2022-10-01] MEDS: RILUZOLE 50 MG TAB GT SCH ×2 (05:39→17:17)
[2022-10-01] MEDS: GABAPENTIN 300 MG/6 ML GT SCH ×3 (05:39→20:53)
[2022-10-01] MEDS: OMEPRAZOLE 20 MG CAPSULE.DR GT SCH (05:39)
[2022-10-01] MEDS: ENOXAPARIN SODIUM 40 MG/0.4 ML DISP.SYRIN SQ SCH (09:00)
[2022-10-01] MEDS: TERCONAZOLE VG SCH ×4 (09:00→21:00)
[2022-10-01] MEDS: DOCUSATE SODIUM 100 MG/10 ML LIQUID UDC GT SCH ×2 (09:19→20:53)
[2022-10-01] MEDS: FLUOXETINE HCL 20 MG CAPSULE GT SCH (09:19)
[2022-10-01] MEDS: CHLORHEXIDINE GLUCONATE 15 ML MOUTHWASH MM SCH ×2 (09:19→16:51)
[2022-10-01] MEDS: LORATADINE 10 MG TABLET GT SCH (09:19)
[2022-10-01] MEDS: OLOPATADINE 0.1% OPHT DROP 5 ML BOTTLE EACHEYE SCH ×2 (09:19→16:51)
[2022-10-01] MEDS: FLUTICASONE PROP NASAL SPRAY 16 GM BOTTLE NS SCH (09:19)
[2022-10-01] MEDS: DICLOFENAC SODIUM 100 GM GEL..GRAM. TP SCH ×2 (09:21→20:53)
[2022-10-01] MEDS: HYDROGEN PEROXIDE 3% 118 ML BOTTLE TP SCH ×2 (09:21→21:29)
[2022-10-01] MEDS: REMEDY ESSENTIAL ZINC PASTE 113 GM TP SCH ×2 (09:21→20:53)
[2022-10-01] MEDS: LORAZEPAM 1 MG TABLET GT PRN ×3 (13:17→22:00)
[2022-10-01 20:00] VITALS: TEMP 98.3
[2022-10-01] MEDS: MELATONIN 3 MG TABLET GT SCH (20:53)
[2022-10-01] MEDS: hydrOXYzine HCL 25 MG TABLET GT SCH (20:53)
[2022-10-02] MEDS: IPRATROPIUM BROMIDE 0.5 MG/2.5 ML NEBU NEB SCH ×4 (01:11→18:56)
[2022-10-02] MEDS: HYDROMORPHONE HCL 2 MG TABLET GT PRN ×2 (03:40→10:07)
[2022-10-02] MEDS: LORAZEPAM 1 MG TABLET GT PRN ×3 (03:40→21:05)
[2022-10-02] MEDS: GABAPENTIN 300 MG/6 ML GT SCH ×3 (05:42→21:05)
[2022-10-02] MEDS: RILUZOLE 50 MG TAB GT SCH ×2 (05:42→18:00)
[2022-10-02] MEDS: OMEPRAZOLE 20 MG CAPSULE.DR GT SCH (05:42)
[2022-10-02] MEDS: HYDROGEN PEROXIDE 3% 118 ML BOTTLE TP SCH ×2 (09:30→18:56)
[2022-10-02] MEDS: OLOPATADINE 0.1% OPHT DROP 5 ML BOTTLE EACHEYE SCH ×2 (09:53→17:22)
[2022-10-02] MEDS: FLUOXETINE HCL 20 MG CAPSULE GT SCH (09:54)
[2022-10-02] MEDS: DOCUSATE SODIUM 100 MG/10 ML LIQUID UDC GT SCH ×2 (09:54→21:05)
[2022-10-02] MEDS: LORATADINE 10 MG TABLET GT SCH (09:54)
[2022-10-02] MEDS: REMEDY ESSENTIAL ZINC PASTE 113 GM TP SCH ×2 (09:55→21:05)
[2022-10-02] MEDS: DICLOFENAC SODIUM 100 GM GEL..GRAM. TP SCH ×2 (09:55→21:05)
[2022-10-02] MEDS: CHLORHEXIDINE GLUCONATE 15 ML MOUTHWASH MM SCH ×2 (09:55→17:22)
[2022-10-02] MEDS: TERCONAZOLE VG SCH ×3 (09:55→21:05)
[2022-10-02] MEDS: FLUTICASONE PROP NASAL SPRAY 16 GM BOTTLE NS SCH (09:56)
[2022-10-02] MEDS: ENOXAPARIN SODIUM 40 MG/0.4 ML DISP.SYRIN SQ SCH (09:57)
[2022-10-02 12:10] VITALS: TEMP 97.4
[2022-10-02] MEDS: ACETAMINOPHEN 650 MG/20 ML UDC- SA PATIENTS-PAIN ONLY GT PRN (12:57)
[2022-10-02] MEDS: JEVITY 1.2 1000 ML LIQUID GT PRN (17:55)
[2022-10-02] MEDS: hydrOXYzine HCL 25 MG TABLET GT SCH (21:05)
[2022-10-02] MEDS: MELATONIN 3 MG TABLET GT SCH (21:05)
[2022-10-02 21:32] VITALS: TEMP 97.9
[2022-10-03] MEDS: IPRATROPIUM BROMIDE 0.5 MG/2.5 ML NEBU NEB SCH ×4 (01:32→20:25)
[2022-10-03] MEDS: LORAZEPAM 1 MG TABLET GT PRN ×4 (02:40→21:23)
[2022-10-03] MEDS: RILUZOLE 50 MG TAB GT SCH ×2 (05:21→17:30)
[2022-10-03] MEDS: GABAPENTIN 300 MG/6 ML GT SCH ×3 (05:21→21:22)
[2022-10-03] MEDS: OMEPRAZOLE 20 MG CAPSULE.DR GT SCH (05:21)
[2022-10-03 07:32] VITALS: TEMP 98.4
[2022-10-03] MEDS: ENOXAPARIN SODIUM 40 MG/0.4 ML DISP.SYRIN SQ SCH (09:00)
[2022-10-03] MEDS: HYDROGEN PEROXIDE 3% 118 ML BOTTLE TP SCH ×2 (09:10→20:25)
[2022-10-03] MEDS: LORATADINE 10 MG TABLET GT SCH (09:44)
[2022-10-03] MEDS: DOCUSATE SODIUM 100 MG/10 ML LIQUID UDC GT SCH ×2 (09:45→21:22)
[2022-10-03] MEDS: CHLORHEXIDINE GLUCONATE 15 ML MOUTHWASH MM SCH ×2 (09:46→17:30)
[2022-10-03] MEDS: DICLOFENAC SODIUM 100 GM GEL..GRAM. TP SCH ×2 (09:46→21:22)
[2022-10-03] MEDS: REMEDY ESSENTIAL ZINC PASTE 113 GM TP SCH ×2 (09:46→21:23)
[2022-10-03] MEDS: TERCONAZOLE VG SCH ×3 (09:46→21:23)
[2022-10-03] MEDS: FLUOXETINE HCL 20 MG CAPSULE GT SCH (09:46)
[2022-10-03] MEDS: FLUTICASONE PROP NASAL SPRAY 16 GM BOTTLE NS SCH (09:46)
[2022-10-03] MEDS: OLOPATADINE 0.1% OPHT DROP 5 ML BOTTLE EACHEYE SCH ×2 (09:51→17:30)
[2022-10-03] MEDS: JEVITY 1.2 1000 ML LIQUID GT PRN (14:50)
[2022-10-03 20:00] VITALS: TEMP 97.9
[2022-10-03] MEDS: hydrOXYzine HCL 25 MG TABLET GT SCH (21:22)
[2022-10-03] MEDS: MELATONIN 3 MG TABLET GT SCH (21:22)
[2022-10-04] MEDS: IPRATROPIUM BROMIDE 0.5 MG/2.5 ML NEBU NEB SCH ×4 (01:59→19:28)
[2022-10-04] MEDS: LORAZEPAM 1 MG TABLET GT PRN ×4 (02:10→21:30)
[2022-10-04] MEDS: GABAPENTIN 300 MG/6 ML GT SCH (06:06)
[2022-10-04] MEDS: ACETAMINOPHEN 650 MG/20 ML UDC- SA PATIENTS-PAIN ONLY GT PRN (06:06)
[2022-10-04] MEDS: OMEPRAZOLE 20 MG CAPSULE.DR GT SCH (06:06)
[2022-10-04] MEDS: RILUZOLE 50 MG TAB GT SCH ×2 (06:06→17:29)
[2022-10-04 07:05] LABS: BASOPHILS % (AUTO) 0.4 % (0.0-2.0); EOSINOPHILS # (AUTO) 0.1 K/uL (0.0-0.7); EOSINOPHILS % (AUTO) 2.6 % (0.0-7.0); HEMATOCRIT 34.4 % (31.2-41.9); HEMOGLOBIN 11.7 g/dL (10.9-14.3); LYMPHOCYTES # (AUTO) 1.4 K/uL (0.8-4.8); LYMPHOCYTES % (AUTO) 31.8 % (20.5-51.5); MEAN CORPUSCULAR HEMOGLOBIN 31.7 uug (24.7-32.8); MEAN CORPUSCULAR HGB CONC 34 g/dL (32.3-35.6); MONOCYTES # (AUTO) 0.4 K/uL (0.1-1.30); MONOCYTES % (AUTO) 9.5 % (0.0-11.0); NEUTROPHILS # (AUTO) 2.4 K/uL (1.8-8.9); NEUTROPHILS % (AUTO) 55.7 % (38.5-71.5); PLATELET COUNT (AUTO) 249 K/uL (179-408); WHITE BLOOD COUNT (AUTO) 4.4 K/uL (3.8-11.8)
[2022-10-04 07:37] LABS: DIFFERENTIAL COMMENT 1
[2022-10-04 07:40] LABS: CREATINE KINASE, TOTAL 70 U/L (26-192)
[2022-10-04 07:54] LABS: C-REACTIVE PROTEIN < 0.1 mg/dL (0.0-0.9)
[2022-10-04 08:00] VITALS: TEMP 98
[2022-10-04] MEDS: LORATADINE 10 MG TABLET GT SCH (08:32)
[2022-10-04] MEDS: OLOPATADINE 0.1% OPHT DROP 5 ML BOTTLE EACHEYE SCH ×2 (08:32→17:29)
[2022-10-04 08:54] LABS: ERYTHROCYTE SEDIMENTATION RATE 26 MM/HR (0-20)
[2022-10-04] MEDS: ENOXAPARIN SODIUM 40 MG/0.4 ML DISP.SYRIN SQ SCH (09:13)
[2022-10-04] MEDS: DOCUSATE SODIUM 100 MG/10 ML LIQUID UDC GT SCH ×2 (09:14→21:35)
[2022-10-04] MEDS: FLUOXETINE HCL 20 MG CAPSULE GT SCH (09:18)
[2022-10-04] MEDS: CHLORHEXIDINE GLUCONATE 15 ML MOUTHWASH MM SCH ×2 (09:18→17:29)
[2022-10-04] MEDS: FLUTICASONE PROP NASAL SPRAY 16 GM BOTTLE NS SCH (09:19)
[2022-10-04] MEDS: TERCONAZOLE VG SCH ×3 (09:19→21:35)
[2022-10-04] MEDS: REMEDY ESSENTIAL ZINC PASTE 113 GM TP SCH ×2 (09:19→21:35)
[2022-10-04] MEDS: DICLOFENAC SODIUM 100 GM GEL..GRAM. TP SCH ×2 (09:19→21:35)
[2022-10-04] MEDS: HYDROGEN PEROXIDE 3% 118 ML BOTTLE TP SCH ×2 (09:57→19:28)
[2022-10-04] MEDS: GABAPENTIN 400 MG CAPSULE GT SCH (14:13)
[2022-10-04] MEDS: JEVITY 1.2 1000 ML LIQUID GT PRN (15:30)
[2022-10-04 19:42] VITALS: TEMP 98.2
[2022-10-04] MEDS ORDERED: GABAPENTIN 400 MG CAPSULE GT SCH (21:00)
[2022-10-04] MEDS ORDERED: GABAPENTIN 400 MG CAPSULE ONE ×2 (21:05→22:04)
[2022-10-04] MEDS: MELATONIN 3 MG TABLET GT SCH (21:35)
[2022-10-04] MEDS: hydrOXYzine HCL 25 MG TABLET GT SCH (21:35)
[2022-10-05] MEDS: IPRATROPIUM BROMIDE 0.5 MG/2.5 ML NEBU NEB SCH ×4 (01:16→19:07)
[2022-10-05] MEDS: LORAZEPAM 1 MG TABLET GT PRN ×4 (03:53→20:56)
[2022-10-05] MEDS: OMEPRAZOLE 20 MG CAPSULE.DR GT SCH (05:42)
[2022-10-05] MEDS: GABAPENTIN 400 MG CAPSULE GT SCH ×3 (05:42→20:34)
[2022-10-05] MEDS: RILUZOLE 50 MG TAB GT SCH ×2 (05:42→17:24)
[2022-10-05 07:27] VITALS: TEMP 98.2
[2022-10-05] MEDS: HYDROGEN PEROXIDE 3% 118 ML BOTTLE TP SCH ×2 (08:44→19:07)
[2022-10-05] MEDS: OLOPATADINE 0.1% OPHT DROP 5 ML BOTTLE EACHEYE SCH ×2 (09:38→17:23)
[2022-10-05] MEDS: LORATADINE 10 MG TABLET GT SCH (09:38)
[2022-10-05] MEDS: FLUOXETINE HCL 20 MG CAPSULE GT SCH (09:39)
[2022-10-05] MEDS: DOCUSATE SODIUM 100 MG/10 ML LIQUID UDC GT SCH ×2 (09:39→20:34)
[2022-10-05] MEDS: REMEDY ESSENTIAL ZINC PASTE 113 GM TP SCH ×2 (09:40→20:35)
[2022-10-05] MEDS: DICLOFENAC SODIUM 100 GM GEL..GRAM. TP SCH ×2 (09:40→20:35)
[2022-10-05] MEDS: FLUTICASONE PROP NASAL SPRAY 16 GM BOTTLE NS SCH (09:40)
[2022-10-05] MEDS: CHLORHEXIDINE GLUCONATE 15 ML MOUTHWASH MM SCH ×2 (09:40→17:23)
[2022-10-05] MEDS: TERCONAZOLE VG SCH ×3 (09:41→20:35)
[2022-10-05] MEDS: ENOXAPARIN SODIUM 40 MG/0.4 ML DISP.SYRIN SQ SCH (09:44)
[2022-10-05] MEDS: JEVITY 1.2 1000 ML LIQUID GT PRN (12:50)
[2022-10-05 14:17] LABS: *ANTI-SCLERODERMA-70 AB <0.2 AI (0.0-0.9); *RNP ANTIBODIES 0.6 AI (0.0-0.9); *SJOGREN'S ANTI-SS-A <0.2 AI (0.0-0.9); *SJOGREN'S ANTI-SS-B <0.2 AI (0.0-0.9); *SMITH ANTIBODIES <0.2 AI (0.0-0.9); ANTI-DNA(DS) AB, QN <1 IU/mL (0-9); ANTI-NUCLEAR AB DIRECT Negative (Negative)
[2022-10-05 19:53] VITALS: TEMP 98.3
[2022-10-05] MEDS: hydrOXYzine HCL 25 MG TABLET GT SCH (20:33)
[2022-10-05] MEDS: MELATONIN 3 MG TABLET GT SCH (20:34)
[2022-10-05 20:50] VITALS: TEMP 98.2
[2022-10-06] MEDS: IPRATROPIUM BROMIDE 0.5 MG/2.5 ML NEBU NEB SCH ×4 (00:47→19:07)
[2022-10-06] MEDS: LORAZEPAM 1 MG TABLET GT PRN ×5 (03:04→21:24)
[2022-10-06] MEDS: OMEPRAZOLE 20 MG CAPSULE.DR GT SCH (05:21)
[2022-10-06] MEDS: RILUZOLE 50 MG TAB GT SCH ×2 (05:21→17:06)
[2022-10-06] MEDS: GABAPENTIN 400 MG CAPSULE GT SCH ×3 (05:21→21:20)
[2022-10-06] MEDS: MAGNESIUM HYDROXIDE 30 ML LIQUID UDC GT PRN (05:22)
[2022-10-06 07:38] VITALS: TEMP 97.8
[2022-10-06] MEDS: OLOPATADINE 0.1% OPHT DROP 5 ML BOTTLE EACHEYE SCH ×2 (08:21→16:33)
[2022-10-06] MEDS: LORATADINE 10 MG TABLET GT SCH (08:22)
[2022-10-06] MEDS: DOCUSATE SODIUM 100 MG/10 ML LIQUID UDC GT SCH ×2 (08:22→21:20)
[2022-10-06] MEDS: FLUTICASONE PROP NASAL SPRAY 16 GM BOTTLE NS SCH (08:24)
[2022-10-06] MEDS: FLUOXETINE HCL 20 MG CAPSULE GT SCH (08:24)
[2022-10-06] MEDS: CHLORHEXIDINE GLUCONATE 15 ML MOUTHWASH MM SCH ×2 (08:24→16:35)
[2022-10-06] MEDS: DICLOFENAC SODIUM 100 GM GEL..GRAM. TP SCH ×2 (08:25→21:22)
[2022-10-06] MEDS: ENOXAPARIN SODIUM 40 MG/0.4 ML DISP.SYRIN SQ SCH (08:26)
[2022-10-06] MEDS: REMEDY ESSENTIAL ZINC PASTE 113 GM TP SCH ×2 (08:26→21:22)
[2022-10-06] MEDS: TERCONAZOLE VG SCH ×3 (08:28→21:22)
[2022-10-06] MEDS: HYDROGEN PEROXIDE 3% 118 ML BOTTLE TP SCH ×2 (08:58→21:32)
[2022-10-06] MEDS: JEVITY 1.2 1000 ML LIQUID GT PRN (12:21)
[2022-10-06] MEDS: HYDROMORPHONE HCL 4 MG TABLET GT PRN ×3 (12:30→21:25)
[2022-10-06 20:00] VITALS: TEMP 98.2
[2022-10-06] MEDS: hydrOXYzine HCL 25 MG TABLET GT SCH (21:19)
[2022-10-06] MEDS: MELATONIN 3 MG TABLET GT SCH (21:20)
[2022-10-07] MEDS: IPRATROPIUM BROMIDE 0.5 MG/2.5 ML NEBU NEB SCH ×4 (01:24→19:30)
[2022-10-07] MEDS: HYDROMORPHONE HCL 4 MG TABLET GT PRN ×5 (04:31→22:40)
[2022-10-07] MEDS: LORAZEPAM 1 MG TABLET GT PRN ×5 (04:31→22:39)
[2022-10-07] MEDS: GABAPENTIN 400 MG CAPSULE GT SCH (05:10)
[2022-10-07] MEDS: RILUZOLE 50 MG TAB GT SCH ×2 (05:10→17:34)
[2022-10-07] MEDS: OMEPRAZOLE 20 MG CAPSULE.DR GT SCH (05:10)
[2022-10-07 08:00] VITALS: TEMP 97.7
[2022-10-07] MEDS: ENOXAPARIN SODIUM 40 MG/0.4 ML DISP.SYRIN SQ SCH (08:41)
[2022-10-07] MEDS: HYDROGEN PEROXIDE 3% 118 ML BOTTLE TP SCH ×2 (09:12→21:00)
[2022-10-07] MEDS: DOCUSATE SODIUM 100 MG/10 ML LIQUID UDC GT SCH ×2 (09:43→21:00)
[2022-10-07] MEDS: CHLORHEXIDINE GLUCONATE 15 ML MOUTHWASH MM SCH ×2 (09:43→17:34)
[2022-10-07] MEDS: DICLOFENAC SODIUM 100 GM GEL..GRAM. TP SCH ×2 (09:43→21:00)
[2022-10-07] MEDS: LORATADINE 10 MG TABLET GT SCH (09:43)
[2022-10-07] MEDS: OLOPATADINE 0.1% OPHT DROP 5 ML BOTTLE EACHEYE SCH ×2 (09:43→17:34)
[2022-10-07] MEDS: TERCONAZOLE VG SCH ×2 (09:43→13:00)
[2022-10-07] MEDS: REMEDY ESSENTIAL ZINC PASTE 113 GM TP SCH ×2 (09:43→21:00)
[2022-10-07] MEDS: FLUTICASONE PROP NASAL SPRAY 16 GM BOTTLE NS SCH (09:43)
[2022-10-07] MEDS: FLUOXETINE HCL 20 MG CAPSULE GT SCH (09:43)
[2022-10-07] MEDS: GABAPENTIN 300 MG/6 ML GT SCH ×2 (13:45→21:00)
[2022-10-07 20:00] VITALS: TEMP 98.3
[2022-10-07] MEDS: MELATONIN 3 MG TABLET GT SCH (21:00)
[2022-10-07] MEDS: hydrOXYzine HCL 25 MG TABLET GT SCH (21:00)
[2022-10-08] MEDS: IPRATROPIUM BROMIDE 0.5 MG/2.5 ML NEBU NEB SCH ×4 (01:22→19:22)
[2022-10-08] MEDS: LORAZEPAM 1 MG TABLET GT PRN ×4 (04:05→21:25)
[2022-10-08] MEDS: HYDROMORPHONE HCL 4 MG TABLET GT PRN ×4 (04:05→21:25)
[2022-10-08] MEDS: RILUZOLE 50 MG TAB GT SCH ×2 (06:13→17:51)
[2022-10-08] MEDS: OMEPRAZOLE 20 MG CAPSULE.DR GT SCH (06:13)
[2022-10-08] MEDS: GABAPENTIN 300 MG/6 ML GT SCH ×3 (06:13→21:24)
[2022-10-08 08:09] VITALS: TEMP 97.7
[2022-10-08] MEDS: HYDROGEN PEROXIDE 3% 118 ML BOTTLE TP SCH ×2 (08:17→19:22)
[2022-10-08] MEDS: FLUOXETINE HCL 20 MG CAPSULE GT SCH (09:00)
[2022-10-08] MEDS: DOCUSATE SODIUM 100 MG/10 ML LIQUID UDC GT SCH ×2 (09:00→21:08)
[2022-10-08] MEDS: FLUTICASONE PROP NASAL SPRAY 16 GM BOTTLE NS SCH (09:00)
[2022-10-08] MEDS: OLOPATADINE 0.1% OPHT DROP 5 ML BOTTLE EACHEYE SCH ×2 (09:00→17:24)
[2022-10-08] MEDS: ENOXAPARIN SODIUM 40 MG/0.4 ML DISP.SYRIN SQ SCH (09:00)
[2022-10-08] MEDS: DICLOFENAC SODIUM 100 GM GEL..GRAM. TP SCH ×2 (09:00→21:10)
[2022-10-08] MEDS: CHLORHEXIDINE GLUCONATE 15 ML MOUTHWASH MM SCH ×2 (09:00→17:24)
[2022-10-08] MEDS: REMEDY ESSENTIAL ZINC PASTE 113 GM TP SCH ×2 (09:00→21:10)
[2022-10-08] MEDS: LORATADINE 10 MG TABLET GT SCH (09:00)
[2022-10-08 20:00] VITALS: TEMP 98.4
[2022-10-08] MEDS: hydrOXYzine HCL 25 MG TABLET GT SCH (21:08)
[2022-10-08] MEDS: MELATONIN 3 MG TABLET GT SCH (21:10)
[2022-10-09] MEDS: IPRATROPIUM BROMIDE 0.5 MG/2.5 ML NEBU NEB SCH ×4 (00:44→19:11)
[2022-10-09] MEDS: LORAZEPAM 1 MG TABLET GT PRN ×5 (02:53→22:32)
[2022-10-09] MEDS: HYDROMORPHONE HCL 4 MG TABLET GT PRN ×5 (02:53→22:33)
[2022-10-09] MEDS: OMEPRAZOLE 20 MG CAPSULE.DR GT SCH (05:39)
[2022-10-09] MEDS: GABAPENTIN 300 MG/6 ML GT SCH ×3 (05:39→21:00)
[2022-10-09] MEDS: RILUZOLE 50 MG TAB GT SCH ×2 (05:39→17:30)
[2022-10-09 08:00] VITALS: TEMP 97
[2022-10-09] MEDS: HYDROGEN PEROXIDE 3% 118 ML BOTTLE TP SCH ×2 (08:26→20:38)
[2022-10-09] MEDS: REMEDY ESSENTIAL ZINC PASTE 113 GM TP SCH ×2 (09:00→21:00)
[2022-10-09] MEDS: DICLOFENAC SODIUM 100 GM GEL..GRAM. TP SCH ×2 (09:00→21:00)
[2022-10-09] MEDS: ENOXAPARIN SODIUM 40 MG/0.4 ML DISP.SYRIN SQ SCH (09:00)
[2022-10-09] MEDS: DOCUSATE SODIUM 100 MG/10 ML LIQUID UDC GT SCH ×2 (09:59→21:00)
[2022-10-09] MEDS: CHLORHEXIDINE GLUCONATE 15 ML MOUTHWASH MM SCH ×2 (09:59→17:26)
[2022-10-09] MEDS: OLOPATADINE 0.1% OPHT DROP 5 ML BOTTLE EACHEYE SCH ×2 (09:59→17:39)
[2022-10-09] MEDS: LORATADINE 10 MG TABLET GT SCH (09:59)
[2022-10-09] MEDS: FLUOXETINE HCL 20 MG CAPSULE GT SCH (09:59)
[2022-10-09] MEDS: FLUTICASONE PROP NASAL SPRAY 16 GM BOTTLE NS SCH (10:00)
[2022-10-09 20:00] VITALS: TEMP 98.2
[2022-10-09] MEDS: hydrOXYzine HCL 25 MG TABLET GT SCH (21:00)
[2022-10-09] MEDS: MELATONIN 3 MG TABLET GT SCH (21:00)
[2022-10-09] MEDS: POLYVINYL ALCOHOL OPHT DROPS 15 ML BOTTLE EACHEYE PRN (22:34)
[2022-10-10] MEDS: IPRATROPIUM BROMIDE 0.5 MG/2.5 ML NEBU NEB SCH ×4 (00:35→20:30)
[2022-10-10] MEDS: GABAPENTIN 300 MG/6 ML GT SCH ×3 (06:30→21:57)
[2022-10-10] MEDS: RILUZOLE 50 MG TAB GT SCH ×2 (06:30→17:34)
[2022-10-10] MEDS: OMEPRAZOLE 20 MG CAPSULE.DR GT SCH (06:30)
[2022-10-10 08:03] VITALS: TEMP 98.5
[2022-10-10] MEDS: HYDROGEN PEROXIDE 3% 118 ML BOTTLE TP SCH ×2 (08:43→21:46)
[2022-10-10] MEDS: OLOPATADINE 0.1% OPHT DROP 5 ML BOTTLE EACHEYE SCH ×2 (09:13→16:14)
[2022-10-10] MEDS: DOCUSATE SODIUM 100 MG/10 ML LIQUID UDC GT SCH ×2 (09:13→21:57)
[2022-10-10] MEDS: LORATADINE 10 MG TABLET GT SCH (09:13)
[2022-10-10] MEDS: FLUOXETINE HCL 20 MG CAPSULE GT SCH (09:13)
[2022-10-10] MEDS: FLUTICASONE PROP NASAL SPRAY 16 GM BOTTLE NS SCH (09:14)
[2022-10-10] MEDS: CHLORHEXIDINE GLUCONATE 15 ML MOUTHWASH MM SCH ×2 (09:14→16:15)
[2022-10-10] MEDS: ENOXAPARIN SODIUM 40 MG/0.4 ML DISP.SYRIN SQ SCH (09:14)
[2022-10-10] MEDS: DICLOFENAC SODIUM 100 GM GEL..GRAM. TP SCH ×2 (09:15→21:57)
[2022-10-10] MEDS: REMEDY ESSENTIAL ZINC PASTE 113 GM TP SCH ×2 (09:15→21:57)
[2022-10-10] MEDS: LORAZEPAM 1 MG TABLET GT PRN ×4 (09:16→21:37)
[2022-10-10] MEDS: HYDROMORPHONE HCL 4 MG TABLET GT PRN ×4 (09:16→21:37)
[2022-10-10 20:45] VITALS: TEMP 98.6
[2022-10-10] MEDS: hydrOXYzine HCL 25 MG TABLET GT SCH (21:57)
[2022-10-10] MEDS: MELATONIN 3 MG TABLET GT SCH (21:57)
[2022-10-11] MEDS: IPRATROPIUM BROMIDE 0.5 MG/2.5 ML NEBU NEB SCH ×4 (00:42→19:32)
[2022-10-11] MEDS: LORAZEPAM 1 MG TABLET GT PRN ×5 (03:28→21:39)
[2022-10-11] MEDS: GABAPENTIN 300 MG/6 ML GT SCH ×3 (06:19→21:37)
[2022-10-11] MEDS: OMEPRAZOLE 20 MG CAPSULE.DR GT SCH (06:19)
[2022-10-11] MEDS: RILUZOLE 50 MG TAB GT SCH ×2 (06:19→17:41)
[2022-10-11 07:28] VITALS: TEMP 97.8
[2022-10-11] MEDS: ENOXAPARIN SODIUM 40 MG/0.4 ML DISP.SYRIN SQ SCH (08:43)
[2022-10-11] MEDS: HYDROMORPHONE HCL 4 MG TABLET GT PRN ×4 (09:30→21:40)
[2022-10-11] MEDS: LORATADINE 10 MG TABLET GT SCH (09:31)
[2022-10-11] MEDS: CHLORHEXIDINE GLUCONATE 15 ML MOUTHWASH MM SCH ×2 (09:31→17:41)
[2022-10-11] MEDS: REMEDY ESSENTIAL ZINC PASTE 113 GM TP SCH ×2 (09:31→21:39)
[2022-10-11] MEDS: DOCUSATE SODIUM 100 MG/10 ML LIQUID UDC GT SCH ×2 (09:31→21:37)
[2022-10-11] MEDS: FLUOXETINE HCL 20 MG CAPSULE GT SCH (09:31)
[2022-10-11] MEDS: OLOPATADINE 0.1% OPHT DROP 5 ML BOTTLE EACHEYE SCH ×2 (09:31→17:41)
[2022-10-11] MEDS: DICLOFENAC SODIUM 100 GM GEL..GRAM. TP SCH ×2 (09:31→21:39)
[2022-10-11] MEDS: FLUTICASONE PROP NASAL SPRAY 16 GM BOTTLE NS SCH (09:31)
[2022-10-11] MEDS: HYDROGEN PEROXIDE 3% 118 ML BOTTLE TP SCH ×2 (09:35→19:32)
[2022-10-11 20:23] VITALS: TEMP 98.4
[2022-10-11] MEDS: hydrOXYzine HCL 25 MG TABLET GT SCH (21:37)
[2022-10-11] MEDS: MELATONIN 3 MG TABLET GT SCH (21:38)
[2022-10-12] MEDS: IPRATROPIUM BROMIDE 0.5 MG/2.5 ML NEBU NEB SCH ×4 (01:35→19:12)
[2022-10-12] MEDS: HYDROMORPHONE HCL 4 MG TABLET GT PRN ×5 (04:01→21:56)
[2022-10-12] MEDS: LORAZEPAM 1 MG TABLET GT PRN ×5 (04:01→21:56)
[2022-10-12] MEDS: RILUZOLE 50 MG TAB GT SCH ×2 (06:36→18:14)
[2022-10-12] MEDS: GABAPENTIN 300 MG/6 ML GT SCH ×3 (06:36→21:56)
[2022-10-12] MEDS: OMEPRAZOLE 20 MG CAPSULE.DR GT SCH (06:36)
[2022-10-12 07:26] VITALS: TEMP 98
[2022-10-12] MEDS: HYDROGEN PEROXIDE 3% 118 ML BOTTLE TP SCH ×2 (07:45→21:00)
[2022-10-12 07:46] LABS: BASOPHILS % (AUTO) 0.3 % (0.0-2.0); EOSINOPHILS # (AUTO) 0.1 K/uL (0.0-0.7); EOSINOPHILS % (AUTO) 3.4 % (0.0-7.0); HEMATOCRIT 31.2 % (31.2-41.9); HEMOGLOBIN 11.1 g/dL (10.9-14.3); LYMPHOCYTES # (AUTO) 1.5 K/uL (0.8-4.8); LYMPHOCYTES % (AUTO) 36.9 % (20.5-51.5); MEAN CORPUSCULAR HEMOGLOBIN 34.2 uug (24.7-32.8); MEAN CORPUSCULAR HGB CONC 36 g/dL (32.3-35.6); MONOCYTES # (AUTO) 0.4 K/uL (0.1-1.30); MONOCYTES % (AUTO) 9.6 % (0.0-11.0); NEUTROPHILS % (AUTO) 49.8 % (38.5-71.5); PLATELET COUNT (AUTO) 184 K/uL (179-408); RED BLOOD CELL COUNT(AUTO) 3.25 MIL/uL (3.63-4.92); RED CELL DISTRIBUTION WIDTH 12.9 % (12.3-17.7); WHITE BLOOD COUNT (AUTO) 4.1 K/uL (3.8-11.8)
[2022-10-12 07:47] LABS: DIFFERENTIAL COMMENT 1
[2022-10-12 07:52] LABS: ALANINE AMINOTRANSFERASE 149 U/L (14-59); ALBUMIN 3.2 g/dL (3.4-5.0); ALKALINE PHOSPHATASE 214 U/L (50-136); ASPARTATE AMINOTRANSFERASE 43 U/L (15-37); BILIRUBIN,TOTAL 0.3 mg/dL (0.2-1.0); CALCIUM 9.4 mg/dL (8.5-10.1); CARBON DIOXIDE 36 mmol/L (21-32); CHLORIDE 94 mmol/L (98-107); CREATININE 0.2 mg/dL (0.6-1.3); GLUCOSE 96 mg/dL (74-106); MAGNESIUM 2.4 mg/dL (1.8-2.4); PHOSPHOROUS 4.4 mg/dL (2.5-4.9); POTASSIUM 4.1 mmol/L (3.5-5.1); SODIUM SERUM 132 mmol/L (136-145); TOTAL PROTEIN, SERUM 7.1 g/dL (6.4-8.2); UREA NITROGEN, BLOOD 12 mg/dL (7-18)
[2022-10-12] MEDS: ENOXAPARIN SODIUM 40 MG/0.4 ML DISP.SYRIN SQ SCH (08:35)
[2022-10-12] MEDS: OLOPATADINE 0.1% OPHT DROP 5 ML BOTTLE EACHEYE SCH ×2 (09:04→17:26)
[2022-10-12] MEDS: DOCUSATE SODIUM 100 MG/10 ML LIQUID UDC GT SCH ×2 (09:04→21:50)
[2022-10-12] MEDS: LORATADINE 10 MG TABLET GT SCH (09:04)
[2022-10-12] MEDS: CHLORHEXIDINE GLUCONATE 15 ML MOUTHWASH MM SCH ×2 (09:05→17:26)
[2022-10-12] MEDS: REMEDY ESSENTIAL ZINC PASTE 113 GM TP SCH ×2 (09:05→21:51)
[2022-10-12] MEDS: FLUTICASONE PROP NASAL SPRAY 16 GM BOTTLE NS SCH (09:05)
[2022-10-12] MEDS: FLUOXETINE HCL 20 MG CAPSULE GT SCH (09:05)
[2022-10-12] MEDS: DICLOFENAC SODIUM 100 GM GEL..GRAM. TP SCH ×2 (09:05→21:51)
[2022-10-12 20:39] VITALS: TEMP 98.7
[2022-10-12] MEDS: hydrOXYzine HCL 25 MG TABLET GT SCH (21:50)
[2022-10-12] MEDS: MELATONIN 3 MG TABLET GT SCH (21:51)
[2022-10-13] MEDS: IPRATROPIUM BROMIDE 0.5 MG/2.5 ML NEBU NEB SCH ×4 (01:43→19:29)
[2022-10-13] MEDS: GABAPENTIN 300 MG/6 ML GT SCH ×3 (05:12→20:29)
[2022-10-13] MEDS: OMEPRAZOLE 20 MG CAPSULE.DR GT SCH (05:12)
[2022-10-13] MEDS: RILUZOLE 50 MG TAB GT SCH ×2 (05:12→17:54)
[2022-10-13 07:30] VITALS: TEMP 98
[2022-10-13] MEDS: DICLOFENAC SODIUM 100 GM GEL..GRAM. TP SCH ×2 (09:00→20:29)
[2022-10-13] MEDS: HYDROGEN PEROXIDE 3% 118 ML BOTTLE TP SCH ×2 (09:34→20:51)
[2022-10-13] MEDS: HYDROMORPHONE HCL 4 MG TABLET GT PRN ×3 (09:38→20:30)
[2022-10-13] MEDS: OLOPATADINE 0.1% OPHT DROP 5 ML BOTTLE EACHEYE SCH ×2 (09:39→17:23)
[2022-10-13] MEDS: DOCUSATE SODIUM 100 MG/10 ML LIQUID UDC GT SCH ×2 (09:39→20:28)
[2022-10-13] MEDS: ENOXAPARIN SODIUM 40 MG/0.4 ML DISP.SYRIN SQ SCH (09:39)
[2022-10-13] MEDS: LORATADINE 10 MG TABLET GT SCH (09:39)
[2022-10-13] MEDS: FLUOXETINE HCL 20 MG CAPSULE GT SCH (09:40)
[2022-10-13] MEDS: CHLORHEXIDINE GLUCONATE 15 ML MOUTHWASH MM SCH ×2 (09:42→17:23)
[2022-10-13] MEDS: REMEDY ESSENTIAL ZINC PASTE 113 GM TP SCH ×2 (09:43→20:30)
[2022-10-13] MEDS: FLUTICASONE PROP NASAL SPRAY 16 GM BOTTLE NS SCH (09:43)
[2022-10-13] MEDS: LORAZEPAM 1 MG TABLET GT PRN ×3 (09:49→20:30)
[2022-10-13] MEDS: JEVITY 1.2 1000 ML LIQUID GT PRN (11:45)
[2022-10-13 20:10] VITALS: TEMP 98.5
[2022-10-13] MEDS: hydrOXYzine HCL 25 MG TABLET GT SCH (20:28)
[2022-10-13] MEDS: MELATONIN 3 MG TABLET GT SCH (20:29)
[2022-10-14] MEDS: IPRATROPIUM BROMIDE 0.5 MG/2.5 ML NEBU NEB SCH ×4 (00:41→19:24)
[2022-10-14] MEDS: HYDROMORPHONE HCL 4 MG TABLET GT PRN ×4 (01:10→21:20)
[2022-10-14] MEDS: GABAPENTIN 300 MG/6 ML GT SCH ×3 (05:05→21:27)
[2022-10-14] MEDS: OMEPRAZOLE 20 MG CAPSULE.DR GT SCH (05:05)
[2022-10-14] MEDS: RILUZOLE 50 MG TAB GT SCH ×2 (05:08→17:45)
[2022-10-14] MEDS: LORAZEPAM 1 MG TABLET GT PRN ×4 (05:13→21:20)
[2022-10-14] MEDS: JEVITY 1.2 1000 ML LIQUID GT PRN (07:10)
[2022-10-14 07:51] VITALS: TEMP 97.8
[2022-10-14] MEDS: OLOPATADINE 0.1% OPHT DROP 5 ML BOTTLE EACHEYE SCH ×2 (08:08→17:32)
[2022-10-14] MEDS: LORATADINE 10 MG TABLET GT SCH (08:09)
[2022-10-14] MEDS: DOCUSATE SODIUM 100 MG/10 ML LIQUID UDC GT SCH ×2 (08:09→21:27)
[2022-10-14] MEDS: FLUOXETINE HCL 20 MG CAPSULE GT SCH (08:10)
[2022-10-14] MEDS: CHLORHEXIDINE GLUCONATE 15 ML MOUTHWASH MM SCH ×2 (08:10→17:32)
[2022-10-14] MEDS: DICLOFENAC SODIUM 100 GM GEL..GRAM. TP SCH ×2 (08:11→21:27)
[2022-10-14] MEDS: FLUTICASONE PROP NASAL SPRAY 16 GM BOTTLE NS SCH (08:11)
[2022-10-14] MEDS: REMEDY ESSENTIAL ZINC PASTE 113 GM TP SCH ×2 (08:11→21:27)
[2022-10-14] MEDS: ENOXAPARIN SODIUM 40 MG/0.4 ML DISP.SYRIN SQ SCH (08:12)
[2022-10-14] MEDS: HYDROGEN PEROXIDE 3% 118 ML BOTTLE TP SCH ×2 (09:24→20:50)
[2022-10-14 20:25] VITALS: TEMP 98.4
[2022-10-14] MEDS: MELATONIN 3 MG TABLET GT SCH (21:27)
[2022-10-14] MEDS: hydrOXYzine HCL 25 MG TABLET GT SCH (21:27)
[2022-10-15] MEDS: IPRATROPIUM BROMIDE 0.5 MG/2.5 ML NEBU NEB SCH ×4 (00:45→19:08)
[2022-10-15] MEDS: JEVITY 1.2 1000 ML LIQUID GT PRN (02:05)
[2022-10-15] MEDS: LORAZEPAM 1 MG TABLET GT PRN ×4 (03:00→17:16)
[2022-10-15] MEDS: HYDROMORPHONE HCL 4 MG TABLET GT PRN ×5 (03:00→21:51)
[2022-10-15] MEDS: RILUZOLE 50 MG TAB GT SCH ×2 (05:07→17:11)
[2022-10-15] MEDS: GABAPENTIN 300 MG/6 ML GT SCH ×3 (05:07→21:00)
[2022-10-15] MEDS: OMEPRAZOLE 20 MG CAPSULE.DR GT SCH (05:07)
[2022-10-15] MEDS: HYDROGEN PEROXIDE 3% 118 ML BOTTLE TP SCH ×2 (07:39→19:08)
[2022-10-15 07:55] VITALS: TEMP 97.9
[2022-10-15] MEDS: OLOPATADINE 0.1% OPHT DROP 5 ML BOTTLE EACHEYE SCH ×2 (09:07→17:10)
[2022-10-15] MEDS: LORATADINE 10 MG TABLET GT SCH (09:08)
[2022-10-15] MEDS: DOCUSATE SODIUM 100 MG/10 ML LIQUID UDC GT SCH ×2 (09:08→21:00)
[2022-10-15] MEDS: CHLORHEXIDINE GLUCONATE 15 ML MOUTHWASH MM SCH ×2 (09:10→17:10)
[2022-10-15] MEDS: FLUTICASONE PROP NASAL SPRAY 16 GM BOTTLE NS SCH (09:10)
[2022-10-15] MEDS: FLUOXETINE HCL 20 MG CAPSULE GT SCH (09:10)
[2022-10-15] MEDS: ENOXAPARIN SODIUM 40 MG/0.4 ML DISP.SYRIN SQ SCH (09:12)
[2022-10-15] MEDS: REMEDY ESSENTIAL ZINC PASTE 113 GM TP SCH ×2 (09:13→21:00)
[2022-10-15] MEDS: DICLOFENAC SODIUM 100 GM GEL..GRAM. TP SCH ×2 (09:13→21:00)
[2022-10-15 19:55] VITALS: TEMP 98.9
[2022-10-15] MEDS: hydrOXYzine HCL 25 MG TABLET GT SCH (21:00)
[2022-10-15] MEDS: MELATONIN 3 MG TABLET GT SCH (21:00)
[2022-10-16] MEDS: IPRATROPIUM BROMIDE 0.5 MG/2.5 ML NEBU NEB SCH ×4 (02:10→19:24)
[2022-10-16] MEDS: HYDROMORPHONE HCL 4 MG TABLET GT PRN ×6 (03:32→21:20)
[2022-10-16] MEDS: OMEPRAZOLE 20 MG CAPSULE.DR GT SCH (05:51)
[2022-10-16] MEDS: RILUZOLE 50 MG TAB GT SCH ×2 (05:51→17:14)
[2022-10-16] MEDS: GABAPENTIN 300 MG/6 ML GT SCH ×3 (05:51→21:36)
[2022-10-16 08:00] VITALS: BP 131/87; TEMP 97.6; O2SAT 100
[2022-10-16] MEDS: HYDROGEN PEROXIDE 3% 118 ML BOTTLE TP SCH ×2 (08:24→19:24)
[2022-10-16] MEDS: OLOPATADINE 0.1% OPHT DROP 5 ML BOTTLE EACHEYE SCH ×2 (09:03→17:14)
[2022-10-16] MEDS: CHLORHEXIDINE GLUCONATE 15 ML MOUTHWASH MM SCH ×2 (09:04→17:14)
[2022-10-16] MEDS: LORATADINE 10 MG TABLET GT SCH (09:04)
[2022-10-16] MEDS: DOCUSATE SODIUM 100 MG/10 ML LIQUID UDC GT SCH ×2 (09:04→21:36)
[2022-10-16] MEDS: FLUTICASONE PROP NASAL SPRAY 16 GM BOTTLE NS SCH (09:04)
[2022-10-16] MEDS: FLUOXETINE HCL 20 MG CAPSULE GT SCH (09:04)
[2022-10-16] MEDS: ENOXAPARIN SODIUM 40 MG/0.4 ML DISP.SYRIN SQ SCH (09:05)
[2022-10-16] MEDS: REMEDY ESSENTIAL ZINC PASTE 113 GM TP SCH ×2 (09:06→21:36)
[2022-10-16] MEDS: DICLOFENAC SODIUM 100 GM GEL..GRAM. TP SCH ×2 (09:06→21:36)
[2022-10-16] MEDS ORDERED: HYDROMORPHONE HCL 2 MG TABLET GT PRN (11:15)
[2022-10-16] MEDS: LORAZEPAM 1 MG TABLET GT PRN ×2 (17:14→21:20)
[2022-10-16 20:08] VITALS: TEMP 98.2
[2022-10-16] MEDS: hydrOXYzine HCL 25 MG TABLET GT SCH (21:36)
[2022-10-16] MEDS: MELATONIN 3 MG TABLET GT SCH (21:36)
[2022-10-16] MEDS: JEVITY 1.2 1000 ML LIQUID GT PRN (21:37)
[2022-10-17] MEDS: IPRATROPIUM BROMIDE 0.5 MG/2.5 ML NEBU NEB SCH ×4 (01:36→19:09)
[2022-10-17] MEDS: HYDROMORPHONE HCL 4 MG TABLET GT PRN ×4 (03:20→21:30)
[2022-10-17] MEDS: RILUZOLE 50 MG TAB GT SCH ×2 (05:44→17:03)
[2022-10-17] MEDS: OMEPRAZOLE 20 MG CAPSULE.DR GT SCH (05:44)
[2022-10-17] MEDS: GABAPENTIN 300 MG/6 ML GT SCH ×3 (05:44→21:30)
[2022-10-17 07:58] VITALS: TEMP 97.9
[2022-10-17] MEDS: OLOPATADINE 0.1% OPHT DROP 5 ML BOTTLE EACHEYE SCH ×2 (09:15→17:03)
[2022-10-17] MEDS: LORATADINE 10 MG TABLET GT SCH (09:15)
[2022-10-17] MEDS: DICLOFENAC SODIUM 100 GM GEL..GRAM. TP SCH ×2 (09:16→21:18)
[2022-10-17] MEDS: FLUTICASONE PROP NASAL SPRAY 16 GM BOTTLE NS SCH (09:16)
[2022-10-17] MEDS: CHLORHEXIDINE GLUCONATE 15 ML MOUTHWASH MM SCH ×2 (09:16→17:03)
[2022-10-17] MEDS: ENOXAPARIN SODIUM 40 MG/0.4 ML DISP.SYRIN SQ SCH (09:16)
[2022-10-17] MEDS: FLUOXETINE HCL 20 MG CAPSULE GT SCH (09:16)
[2022-10-17] MEDS: REMEDY ESSENTIAL ZINC PASTE 113 GM TP SCH ×2 (09:16→21:18)
[2022-10-17] MEDS: DOCUSATE SODIUM 100 MG/10 ML LIQUID UDC GT SCH ×2 (09:16→21:14)
[2022-10-17] MEDS: HYDROGEN PEROXIDE 3% 118 ML BOTTLE TP SCH ×2 (09:47→22:02)
[2022-10-17] MEDS: LORAZEPAM 1 MG TABLET GT PRN ×2 (13:20→21:30)
[2022-10-17] MEDS ORDERED: LORAZEPAM 1 MG TABLET GT ONE (17:00)
[2022-10-17] MEDS: POLYVINYL ALCOHOL OPHT DROPS 15 ML BOTTLE EACHEYE PRN (17:03)
[2022-10-17 20:15] VITALS: TEMP 98.1
[2022-10-17] MEDS: hydrOXYzine HCL 25 MG TABLET GT SCH (21:14)
[2022-10-17] MEDS: MELATONIN 3 MG TABLET GT SCH (21:16)
[2022-10-18] MEDS: IPRATROPIUM BROMIDE 0.5 MG/2.5 ML NEBU NEB SCH ×4 (01:31→20:16)
[2022-10-18] MEDS: HYDROMORPHONE HCL 4 MG TABLET GT PRN ×6 (02:30→21:33)
[2022-10-18] MEDS: GABAPENTIN 300 MG/6 ML GT SCH ×3 (05:46→21:30)
[2022-10-18] MEDS: OMEPRAZOLE 20 MG CAPSULE.DR GT SCH (05:46)
[2022-10-18] MEDS: RILUZOLE 50 MG TAB GT SCH ×2 (05:47→17:05)
[2022-10-18] MEDS: ACETAMINOPHEN 650 MG/20 ML UDC- SA PATIENTS-PAIN ONLY GT PRN (05:52)
[2022-10-18 07:28] LABS: BASOPHILS % (AUTO) 0.2 % (0.0-2.0); EOSINOPHILS # (AUTO) 0.1 K/uL (0.0-0.7); EOSINOPHILS % (AUTO) 2.7 % (0.0-7.0); HEMATOCRIT 34.5 % (31.2-41.9); HEMOGLOBIN 11.8 g/dL (10.9-14.3); LYMPHOCYTES # (AUTO) 1.4 K/uL (0.8-4.8); LYMPHOCYTES % (AUTO) 26.4 % (20.5-51.5); MEAN CORPUSCULAR HGB CONC 34 g/dL (32.3-35.6); MEAN CORPUSCULAR VOLUME 93.5 fL (75.5-95.3); MONOCYTES # (AUTO) 0.6 K/uL (0.1-1.30); MONOCYTES % (AUTO) 11.1 % (0.0-11.0); NEUTROPHILS # (AUTO) 3.2 K/uL (1.8-8.9); NEUTROPHILS % (AUTO) 59.6 % (38.5-71.5); PLATELET COUNT (AUTO) 226 K/uL (179-408); RED BLOOD CELL COUNT(AUTO) 3.69 MIL/uL (3.63-4.92); RED CELL DISTRIBUTION WIDTH 12.6 % (12.3-17.7); WHITE BLOOD COUNT (AUTO) 5.4 K/uL (3.8-11.8)
[2022-10-18 07:33] LABS: DIFFERENTIAL COMMENT 1
[2022-10-18 07:54] LABS: CALCIUM 9.2 mg/dL (8.5-10.1); CARBON DIOXIDE 38 mmol/L (21-32); CHLORIDE 93 mmol/L (98-107); CREATININE 0.3 mg/dL (0.6-1.3); GLUCOSE 117 mg/dL (74-106); POTASSIUM 4.2 mmol/L (3.5-5.1); SODIUM SERUM 133 mmol/L (136-145); UREA NITROGEN, BLOOD 14 mg/dL (7-18)
[2022-10-18] MEDS: OLOPATADINE 0.1% OPHT DROP 5 ML BOTTLE EACHEYE SCH ×2 (08:22→17:05)
[2022-10-18] MEDS: LORATADINE 10 MG TABLET GT SCH (08:22)
[2022-10-18] MEDS: DOCUSATE SODIUM 100 MG/10 ML LIQUID UDC GT SCH ×2 (08:22→21:29)
[2022-10-18] MEDS: CHLORHEXIDINE GLUCONATE 15 ML MOUTHWASH MM SCH ×2 (08:24→17:05)
[2022-10-18] MEDS: FLUOXETINE HCL 20 MG CAPSULE GT SCH (08:24)
[2022-10-18] MEDS: FLUTICASONE PROP NASAL SPRAY 16 GM BOTTLE NS SCH (08:24)
[2022-10-18] MEDS: ENOXAPARIN SODIUM 40 MG/0.4 ML DISP.SYRIN SQ SCH (08:26)
[2022-10-18] MEDS: REMEDY ESSENTIAL ZINC PASTE 113 GM TP SCH ×2 (08:28→21:30)
[2022-10-18] MEDS: DICLOFENAC SODIUM 100 GM GEL..GRAM. TP SCH ×2 (08:28→21:30)
[2022-10-18] MEDS: HYDROGEN PEROXIDE 3% 118 ML BOTTLE TP SCH ×2 (09:14→21:00)
[2022-10-18 11:10] VITALS: TEMP 97.8
[2022-10-18] MEDS: JEVITY 1.2 1000 ML LIQUID GT PRN (12:34)
[2022-10-18] MEDS: LORAZEPAM 1 MG TABLET GT PRN ×3 (12:35→21:32)
[2022-10-18 20:40] VITALS: TEMP 98.2
[2022-10-18] MEDS: hydrOXYzine HCL 25 MG TABLET GT SCH (21:29)
[2022-10-18] MEDS: MELATONIN 3 MG TABLET GT SCH (21:30)
[2022-10-19] MEDS: IPRATROPIUM BROMIDE 0.5 MG/2.5 ML NEBU NEB SCH ×4 (01:55→19:16)
[2022-10-19] MEDS: HYDROMORPHONE HCL 4 MG TABLET GT PRN ×5 (03:31→20:35)
[2022-10-19] MEDS: GABAPENTIN 300 MG/6 ML GT SCH ×3 (05:31→20:42)
[2022-10-19] MEDS: OMEPRAZOLE 20 MG CAPSULE.DR GT SCH (05:33)
[2022-10-19] MEDS: RILUZOLE 50 MG TAB GT SCH ×2 (05:33→17:58)
[2022-10-19] MEDS: JEVITY 1.2 1000 ML LIQUID GT PRN (05:51)
[2022-10-19] MEDS: ACETAMINOPHEN 650 MG/20 ML UDC- SA PATIENTS-PAIN ONLY GT PRN (06:05)
[2022-10-19 08:00] VITALS: TEMP 97.4
[2022-10-19] MEDS: DOCUSATE SODIUM 100 MG/10 ML LIQUID UDC GT SCH ×2 (08:08→20:42)
[2022-10-19] MEDS: LORATADINE 10 MG TABLET GT SCH (08:08)
[2022-10-19] MEDS: FLUOXETINE HCL 20 MG CAPSULE GT SCH (08:09)
[2022-10-19] MEDS: CHLORHEXIDINE GLUCONATE 15 ML MOUTHWASH MM SCH ×2 (08:09→16:19)
[2022-10-19] MEDS: FLUTICASONE PROP NASAL SPRAY 16 GM BOTTLE NS SCH (08:09)
[2022-10-19] MEDS: LORAZEPAM 1 MG TABLET GT PRN ×4 (08:10→20:35)
[2022-10-19] MEDS: OLOPATADINE 0.1% OPHT DROP 5 ML BOTTLE EACHEYE SCH ×2 (08:11→16:19)
[2022-10-19] MEDS: ENOXAPARIN SODIUM 40 MG/0.4 ML DISP.SYRIN SQ SCH (08:13)
[2022-10-19] MEDS: DICLOFENAC SODIUM 100 GM GEL..GRAM. TP SCH ×2 (08:17→20:44)
[2022-10-19] MEDS: REMEDY ESSENTIAL ZINC PASTE 113 GM TP SCH ×2 (08:17→20:44)
[2022-10-19] MEDS: HYDROGEN PEROXIDE 3% 118 ML BOTTLE TP SCH ×2 (08:23→23:12)
[2022-10-19 20:11] VITALS: TEMP 98.2
[2022-10-19] MEDS: hydrOXYzine HCL 25 MG TABLET GT SCH (20:42)
[2022-10-19] MEDS: MELATONIN 3 MG TABLET GT SCH (20:43)
[2022-10-20] MEDS: IPRATROPIUM BROMIDE 0.5 MG/2.5 ML NEBU NEB SCH ×4 (02:28→19:20)
[2022-10-20] MEDS: HYDROMORPHONE HCL 4 MG TABLET GT PRN ×4 (02:30→20:03)
[2022-10-20] MEDS: JEVITY 1.2 1000 ML LIQUID GT PRN (02:39)
[2022-10-20] MEDS: RILUZOLE 50 MG TAB GT SCH ×2 (05:40→17:39)
[2022-10-20] MEDS: OMEPRAZOLE 20 MG CAPSULE.DR GT SCH (05:40)
[2022-10-20] MEDS: GABAPENTIN 300 MG/6 ML GT SCH ×3 (05:40→20:03)
[2022-10-20] MEDS: HYDROGEN PEROXIDE 3% 118 ML BOTTLE TP SCH ×2 (07:23→21:29)
[2022-10-20] MEDS: OLOPATADINE 0.1% OPHT DROP 5 ML BOTTLE EACHEYE SCH ×2 (09:16→17:17)
[2022-10-20] MEDS: LORATADINE 10 MG TABLET GT SCH (09:16)
[2022-10-20] MEDS: DOCUSATE SODIUM 100 MG/10 ML LIQUID UDC GT SCH ×2 (09:17→20:03)
[2022-10-20] MEDS: CHLORHEXIDINE GLUCONATE 15 ML MOUTHWASH MM SCH ×2 (09:18→17:17)
[2022-10-20] MEDS: FLUOXETINE HCL 20 MG CAPSULE GT SCH (09:18)
[2022-10-20] MEDS: REMEDY ESSENTIAL ZINC PASTE 113 GM TP SCH ×2 (09:19→20:03)
[2022-10-20] MEDS: FLUTICASONE PROP NASAL SPRAY 16 GM BOTTLE NS SCH (09:19)
[2022-10-20] MEDS: DICLOFENAC SODIUM 100 GM GEL..GRAM. TP SCH ×2 (09:19→20:03)
[2022-10-20] MEDS: ENOXAPARIN SODIUM 40 MG/0.4 ML DISP.SYRIN SQ SCH (09:22)
[2022-10-20] MEDS: LORAZEPAM 1 MG TABLET GT PRN ×3 (09:23→20:03)
[2022-10-20] MEDS: ACETAMINOPHEN 650 MG/20 ML UDC- SA PATIENTS-PAIN ONLY GT PRN (11:46)
[2022-10-20] MEDS: hydrOXYzine HCL 25 MG TABLET GT SCH (20:03)
[2022-10-20] MEDS: MELATONIN 3 MG TABLET GT SCH (20:03)
[2022-10-20 20:26] VITALS: TEMP 98
[2022-10-21] MEDS: HYDROMORPHONE HCL 4 MG TABLET GT PRN ×5 (01:45→21:40)
[2022-10-21] MEDS: IPRATROPIUM BROMIDE 0.5 MG/2.5 ML NEBU NEB SCH ×4 (01:54→19:11)
[2022-10-21] MEDS: JEVITY 1.2 1000 ML LIQUID GT PRN (03:46)
[2022-10-21] MEDS: RILUZOLE 50 MG TAB GT SCH ×2 (05:20→17:04)
[2022-10-21] MEDS: GABAPENTIN 300 MG/6 ML GT SCH ×3 (05:20→21:53)
[2022-10-21] MEDS: OMEPRAZOLE 20 MG CAPSULE.DR GT SCH (05:20)
[2022-10-21 07:59] VITALS: TEMP 97
[2022-10-21] MEDS: OLOPATADINE 0.1% OPHT DROP 5 ML BOTTLE EACHEYE SCH ×2 (08:07→17:04)
[2022-10-21] MEDS: DOCUSATE SODIUM 100 MG/10 ML LIQUID UDC GT SCH ×2 (08:08→21:53)
[2022-10-21] MEDS: LORATADINE 10 MG TABLET GT SCH (08:08)
[2022-10-21] MEDS: CHLORHEXIDINE GLUCONATE 15 ML MOUTHWASH MM SCH ×2 (08:09→17:04)
[2022-10-21] MEDS: FLUTICASONE PROP NASAL SPRAY 16 GM BOTTLE NS SCH (08:09)
[2022-10-21] MEDS: FLUOXETINE HCL 20 MG CAPSULE GT SCH (08:09)
[2022-10-21] MEDS: ENOXAPARIN SODIUM 40 MG/0.4 ML DISP.SYRIN SQ SCH (08:11)
[2022-10-21] MEDS: REMEDY ESSENTIAL ZINC PASTE 113 GM TP SCH ×2 (08:14→21:53)
[2022-10-21] MEDS: DICLOFENAC SODIUM 100 GM GEL..GRAM. TP SCH ×2 (08:14→21:53)
[2022-10-21] MEDS: LORAZEPAM 1 MG TABLET GT PRN ×4 (08:14→22:08)
[2022-10-21] MEDS: HYDROGEN PEROXIDE 3% 118 ML BOTTLE TP SCH ×2 (09:00→21:27)
[2022-10-21 20:23] VITALS: TEMP 98.1
[2022-10-21] MEDS: MELATONIN 3 MG TABLET GT SCH (21:53)
[2022-10-21] MEDS: hydrOXYzine HCL 25 MG TABLET GT SCH (21:53)
[2022-10-21] MEDS ORDERED: LORAZEPAM 0.5 MG TABLET ONE (21:57)
[2022-10-22] MEDS: IPRATROPIUM BROMIDE 0.5 MG/2.5 ML NEBU NEB SCH ×4 (00:49→19:18)
[2022-10-22] MEDS: JEVITY 1.2 1000 ML LIQUID GT PRN ×2 (01:54→21:46)
[2022-10-22] MEDS: ACETAMINOPHEN 650 MG/20 ML UDC- SA PATIENTS-PAIN ONLY GT PRN (01:56)
[2022-10-22] MEDS: GABAPENTIN 300 MG/6 ML GT SCH ×3 (05:46→21:56)
[2022-10-22] MEDS: OMEPRAZOLE 20 MG CAPSULE.DR GT SCH (05:46)
[2022-10-22] MEDS: RILUZOLE 50 MG TAB GT SCH ×2 (05:46→17:34)
[2022-10-22 08:02] VITALS: TEMP 98
[2022-10-22] MEDS: FLUTICASONE PROP NASAL SPRAY 16 GM BOTTLE NS SCH (08:28)
[2022-10-22] MEDS: ENOXAPARIN SODIUM 40 MG/0.4 ML DISP.SYRIN SQ SCH (08:28)
[2022-10-22] MEDS: CHLORHEXIDINE GLUCONATE 15 ML MOUTHWASH MM SCH ×2 (08:28→17:34)
[2022-10-22] MEDS: FLUOXETINE HCL 20 MG CAPSULE GT SCH (08:28)
[2022-10-22] MEDS: DICLOFENAC SODIUM 100 GM GEL..GRAM. TP SCH ×2 (08:28→21:56)
[2022-10-22] MEDS: HYDROMORPHONE HCL 4 MG TABLET GT PRN ×4 (08:29→21:58)
[2022-10-22] MEDS: DOCUSATE SODIUM 100 MG/10 ML LIQUID UDC GT SCH ×2 (08:29→21:56)
[2022-10-22] MEDS: OLOPATADINE 0.1% OPHT DROP 5 ML BOTTLE EACHEYE SCH ×2 (08:29→17:34)
[2022-10-22] MEDS: LORATADINE 10 MG TABLET GT SCH (08:29)
[2022-10-22] MEDS: REMEDY ESSENTIAL ZINC PASTE 113 GM TP SCH ×2 (09:12→21:56)
[2022-10-22] MEDS: LORAZEPAM 1 MG TABLET GT PRN ×3 (09:13→21:58)
[2022-10-22] MEDS: HYDROGEN PEROXIDE 3% 118 ML BOTTLE TP SCH ×2 (10:00→19:18)
[2022-10-22 20:00] VITALS: TEMP 98.3
[2022-10-22 20:23] VITALS: TEMP 98.3
[2022-10-22] MEDS: hydrOXYzine HCL 25 MG TABLET GT SCH (21:56)
[2022-10-22] MEDS: MELATONIN 3 MG TABLET GT SCH (21:56)
[2022-10-23] MEDS: ACETAMINOPHEN 650 MG/20 ML UDC- SA PATIENTS-PAIN ONLY GT PRN (01:13)
[2022-10-23] MEDS: IPRATROPIUM BROMIDE 0.5 MG/2.5 ML NEBU NEB SCH ×4 (01:31→19:26)
[2022-10-23] MEDS: HYDROMORPHONE HCL 4 MG TABLET GT PRN ×5 (05:00→22:27)
[2022-10-23] MEDS: RILUZOLE 50 MG TAB GT SCH ×2 (05:16→18:05)
[2022-10-23] MEDS: LORAZEPAM 1 MG TABLET GT PRN ×4 (05:16→18:05)
[2022-10-23] MEDS: GABAPENTIN 300 MG/6 ML GT SCH ×3 (05:16→21:21)
[2022-10-23] MEDS: OMEPRAZOLE 20 MG CAPSULE.DR GT SCH (05:16)
[2022-10-23] MEDS: HYDROGEN PEROXIDE 3% 118 ML BOTTLE TP SCH ×2 (07:45→19:26)
[2022-10-23 08:00] VITALS: TEMP 97.6
[2022-10-23] MEDS: ENOXAPARIN SODIUM 40 MG/0.4 ML DISP.SYRIN SQ SCH (08:43)
[2022-10-23] MEDS: FLUTICASONE PROP NASAL SPRAY 16 GM BOTTLE NS SCH (09:50)
[2022-10-23] MEDS: DOCUSATE SODIUM 100 MG/10 ML LIQUID UDC GT SCH ×2 (09:50→21:21)
[2022-10-23] MEDS: DICLOFENAC SODIUM 100 GM GEL..GRAM. TP SCH ×2 (09:50→21:21)
[2022-10-23] MEDS: REMEDY ESSENTIAL ZINC PASTE 113 GM TP SCH ×2 (09:50→21:21)
[2022-10-23] MEDS: LORATADINE 10 MG TABLET GT SCH (09:50)
[2022-10-23] MEDS: CHLORHEXIDINE GLUCONATE 15 ML MOUTHWASH MM SCH ×2 (09:50→17:41)
[2022-10-23] MEDS: FLUOXETINE HCL 20 MG CAPSULE GT SCH (09:50)
[2022-10-23] MEDS: OLOPATADINE 0.1% OPHT DROP 5 ML BOTTLE EACHEYE SCH ×2 (09:50→17:41)
[2022-10-23 20:00] VITALS: TEMP 97.9
[2022-10-23] MEDS: hydrOXYzine HCL 25 MG TABLET GT SCH (21:21)
[2022-10-23] MEDS: MELATONIN 3 MG TABLET GT SCH (21:21)
[2022-10-24] MEDS: IPRATROPIUM BROMIDE 0.5 MG/2.5 ML NEBU NEB SCH ×4 (01:34→19:50)
[2022-10-24] MEDS: HYDROMORPHONE HCL 4 MG TABLET GT PRN ×4 (02:45→21:00)
[2022-10-24] MEDS: LORAZEPAM 1 MG TABLET GT PRN ×4 (05:00→21:00)
[2022-10-24] MEDS: OMEPRAZOLE 20 MG CAPSULE.DR GT SCH (05:31)
[2022-10-24] MEDS: GABAPENTIN 300 MG/6 ML GT SCH ×3 (05:31→21:16)
[2022-10-24] MEDS: RILUZOLE 50 MG TAB GT SCH ×2 (05:31→18:02)
[2022-10-24 08:07] VITALS: TEMP 97.7
[2022-10-24] MEDS: OLOPATADINE 0.1% OPHT DROP 5 ML BOTTLE EACHEYE SCH ×2 (09:11→17:05)
[2022-10-24] MEDS: DOCUSATE SODIUM 100 MG/10 ML LIQUID UDC GT SCH ×2 (09:12→21:16)
[2022-10-24] MEDS: LORATADINE 10 MG TABLET GT SCH (09:12)
[2022-10-24] MEDS: FLUOXETINE HCL 20 MG CAPSULE GT SCH (09:13)
[2022-10-24] MEDS: CHLORHEXIDINE GLUCONATE 15 ML MOUTHWASH MM SCH ×2 (09:13→17:05)
[2022-10-24] MEDS: DICLOFENAC SODIUM 100 GM GEL..GRAM. TP SCH ×2 (09:13→21:17)
[2022-10-24] MEDS: FLUTICASONE PROP NASAL SPRAY 16 GM BOTTLE NS SCH (09:13)
[2022-10-24] MEDS: REMEDY ESSENTIAL ZINC PASTE 113 GM TP SCH ×2 (09:14→21:17)
[2022-10-24] MEDS: HYDROGEN PEROXIDE 3% 118 ML BOTTLE TP SCH ×2 (09:20→20:42)
[2022-10-24] MEDS: ENOXAPARIN SODIUM 40 MG/0.4 ML DISP.SYRIN SQ SCH (09:22)
[2022-10-24] MEDS: JEVITY 1.2 1000 ML LIQUID GT PRN (15:18)
[2022-10-24] MEDS: ACETAMINOPHEN 650 MG/20 ML UDC- SA PATIENTS-PAIN ONLY GT PRN (16:59)
[2022-10-24 19:49] VITALS: TEMP 98.2
[2022-10-24] MEDS: hydrOXYzine HCL 25 MG TABLET GT SCH (21:16)
[2022-10-24] MEDS: MELATONIN 3 MG TABLET GT SCH (21:16)
[2022-10-25] MEDS: IPRATROPIUM BROMIDE 0.5 MG/2.5 ML NEBU NEB SCH ×4 (00:54→19:40)
[2022-10-25] MEDS: ACETAMINOPHEN 650 MG/20 ML UDC- SA PATIENTS-PAIN ONLY GT PRN (03:39)
[2022-10-25] MEDS: LORAZEPAM 1 MG TABLET GT PRN ×4 (05:00→20:42)
[2022-10-25] MEDS: HYDROMORPHONE HCL 4 MG TABLET GT PRN ×4 (05:00→20:42)
[2022-10-25] MEDS: RILUZOLE 50 MG TAB GT SCH ×2 (05:18→17:48)
[2022-10-25] MEDS: OMEPRAZOLE 20 MG CAPSULE.DR GT SCH (05:18)
[2022-10-25] MEDS: GABAPENTIN 300 MG/6 ML GT SCH ×3 (05:18→20:41)
[2022-10-25 07:56] LABS: BASOPHILS % (AUTO) 0.4 % (0.0-2.0); EOSINOPHILS # (AUTO) 0.1 K/uL (0.0-0.7); EOSINOPHILS % (AUTO) 2.3 % (0.0-7.0); HEMOGLOBIN 12.4 g/dL (10.9-14.3); LYMPHOCYTES % (AUTO) 19.9 % (20.5-51.5); MEAN CORPUSCULAR HEMOGLOBIN 31.7 uug (24.7-32.8); MEAN CORPUSCULAR HGB CONC 34 g/dL (32.3-35.6); MEAN CORPUSCULAR VOLUME 94.2 fL (75.5-95.3); MONOCYTES # (AUTO) 0.5 K/uL (0.1-1.30); MONOCYTES % (AUTO) 9.4 % (0.0-11.0); NEUTROPHILS # (AUTO) 3.5 K/uL (1.8-8.9); PLATELET COUNT (AUTO) 221 K/uL (179-408); RED BLOOD CELL COUNT(AUTO) 3.93 MIL/uL (3.63-4.92); RED CELL DISTRIBUTION WIDTH 12.6 % (12.3-17.7); WHITE BLOOD COUNT (AUTO) 5.2 K/uL (3.8-11.8)
[2022-10-25 08:00] VITALS: TEMP 98
[2022-10-25 08:09] LABS: DIFFERENTIAL COMMENT 1
[2022-10-25 08:33] LABS: ALANINE AMINOTRANSFERASE 26 U/L (14-59); ALBUMIN 3.4 g/dL (3.4-5.0); ALKALINE PHOSPHATASE 148 U/L (50-136); ASPARTATE AMINOTRANSFERASE 12 U/L (15-37); BILIRUBIN,TOTAL 0.4 mg/dL (0.2-1.0); CALCIUM 9.4 mg/dL (8.5-10.1); CHLORIDE 93 mmol/L (98-107); CREATININE 0.3 mg/dL (0.6-1.3); GLUCOSE 110 mg/dL (74-106); MAGNESIUM 2.4 mg/dL (1.8-2.4); PHOSPHOROUS 4.8 mg/dL (2.5-4.9); POTASSIUM 3.9 mmol/L (3.5-5.1); SODIUM SERUM 137 mmol/L (136-145); TOTAL PROTEIN, SERUM 7.7 g/dL (6.4-8.2); UREA NITROGEN, BLOOD 14 mg/dL (7-18)
[2022-10-25 08:51] LABS: CARBON DIOXIDE 41 mmol/L (21-32)
[2022-10-25] MEDS: HYDROGEN PEROXIDE 3% 118 ML BOTTLE TP SCH ×2 (09:23→21:10)
[2022-10-25] MEDS: ENOXAPARIN SODIUM 40 MG/0.4 ML DISP.SYRIN SQ SCH (09:30)
[2022-10-25] MEDS: OLOPATADINE 0.1% OPHT DROP 5 ML BOTTLE EACHEYE SCH ×2 (09:32→16:23)
[2022-10-25] MEDS: DOCUSATE SODIUM 100 MG/10 ML LIQUID UDC GT SCH ×2 (09:34→20:41)
[2022-10-25] MEDS: LORATADINE 10 MG TABLET GT SCH (09:34)
[2022-10-25] MEDS: FLUOXETINE HCL 20 MG CAPSULE GT SCH (09:35)
[2022-10-25] MEDS: CHLORHEXIDINE GLUCONATE 15 ML MOUTHWASH MM SCH ×2 (09:35→16:23)
[2022-10-25] MEDS: FLUTICASONE PROP NASAL SPRAY 16 GM BOTTLE NS SCH (09:36)
[2022-10-25] MEDS: DICLOFENAC SODIUM 100 GM GEL..GRAM. TP SCH ×2 (09:36→20:41)
[2022-10-25] MEDS: REMEDY ESSENTIAL ZINC PASTE 113 GM TP SCH ×2 (09:36→20:41)
[2022-10-25] MEDS: JEVITY 1.2 1000 ML LIQUID GT PRN (14:51)
[2022-10-25 20:00] VITALS: TEMP 97.8
[2022-10-25] MEDS: MELATONIN 3 MG TABLET GT SCH (20:41)
[2022-10-25] MEDS: hydrOXYzine HCL 25 MG TABLET GT SCH (20:41)
[2022-10-26] MEDS: IPRATROPIUM BROMIDE 0.5 MG/2.5 ML NEBU NEB SCH ×4 (00:41→19:18)
[2022-10-26] MEDS: GABAPENTIN 300 MG/6 ML GT SCH ×4 (02:35→21:17)
[2022-10-26] MEDS: HYDROMORPHONE HCL 4 MG TABLET GT PRN ×4 (02:35→21:00)
[2022-10-26] MEDS: LORAZEPAM 1 MG TABLET GT PRN ×4 (04:40→21:00)
[2022-10-26] MEDS: OMEPRAZOLE 20 MG CAPSULE.DR GT SCH (05:08)
[2022-10-26] MEDS: RILUZOLE 50 MG TAB GT SCH ×2 (05:08→18:14)
[2022-10-26 08:00] VITALS: TEMP 97.9
[2022-10-26] MEDS: LORATADINE 10 MG TABLET GT SCH (09:00)
[2022-10-26] MEDS: FLUOXETINE HCL 20 MG CAPSULE GT SCH (09:00)
[2022-10-26] MEDS: REMEDY ESSENTIAL ZINC PASTE 113 GM TP SCH ×2 (09:00→21:17)
[2022-10-26] MEDS: FLUTICASONE PROP NASAL SPRAY 16 GM BOTTLE NS SCH (09:00)
[2022-10-26] MEDS: CHLORHEXIDINE GLUCONATE 15 ML MOUTHWASH MM SCH ×2 (09:00→17:00)
[2022-10-26] MEDS: DICLOFENAC SODIUM 100 GM GEL..GRAM. TP SCH ×2 (09:00→21:17)
[2022-10-26] MEDS: HYDROGEN PEROXIDE 3% 118 ML BOTTLE TP SCH ×2 (09:00→19:18)
[2022-10-26] MEDS: ENOXAPARIN SODIUM 40 MG/0.4 ML DISP.SYRIN SQ SCH (09:00)
[2022-10-26] MEDS: OLOPATADINE 0.1% OPHT DROP 5 ML BOTTLE EACHEYE SCH ×2 (09:00→17:00)
[2022-10-26] MEDS: DOCUSATE SODIUM 100 MG/10 ML LIQUID UDC GT SCH ×2 (09:00→21:17)
[2022-10-26] MEDS: JEVITY 1.2 1000 ML LIQUID GT PRN (18:14)
[2022-10-26 20:00] VITALS: TEMP 98.4
[2022-10-26] MEDS: hydrOXYzine HCL 25 MG TABLET GT SCH (21:17)
[2022-10-26] MEDS: MELATONIN 3 MG TABLET GT SCH (21:17)
[2022-10-27] MEDS: IPRATROPIUM BROMIDE 0.5 MG/2.5 ML NEBU NEB SCH ×4 (02:08→19:18)
[2022-10-27] MEDS: HYDROMORPHONE HCL 4 MG TABLET GT PRN ×4 (04:00→20:29)
[2022-10-27] MEDS: OMEPRAZOLE 20 MG CAPSULE.DR GT SCH (05:19)
[2022-10-27] MEDS: RILUZOLE 50 MG TAB GT SCH ×2 (05:19→17:41)
[2022-10-27] MEDS: GABAPENTIN 300 MG/6 ML GT SCH ×3 (05:19→20:27)
[2022-10-27 08:00] VITALS: TEMP 98
[2022-10-27] MEDS: OLOPATADINE 0.1% OPHT DROP 5 ML BOTTLE EACHEYE SCH ×2 (08:47→17:00)
[2022-10-27] MEDS: LORATADINE 10 MG TABLET GT SCH (08:47)
[2022-10-27] MEDS: DOCUSATE SODIUM 100 MG/10 ML LIQUID UDC GT SCH ×2 (08:48→20:27)
[2022-10-27] MEDS: FLUOXETINE HCL 20 MG CAPSULE GT SCH (08:49)
[2022-10-27] MEDS: FLUTICASONE PROP NASAL SPRAY 16 GM BOTTLE NS SCH (08:49)
[2022-10-27] MEDS: CHLORHEXIDINE GLUCONATE 15 ML MOUTHWASH MM SCH ×2 (08:49→17:00)
[2022-10-27] MEDS: DICLOFENAC SODIUM 100 GM GEL..GRAM. TP SCH ×2 (08:50→20:28)
[2022-10-27] MEDS: REMEDY ESSENTIAL ZINC PASTE 113 GM TP SCH ×2 (08:50→20:28)
[2022-10-27] MEDS: ENOXAPARIN SODIUM 40 MG/0.4 ML DISP.SYRIN SQ SCH (08:51)
[2022-10-27] MEDS: LORAZEPAM 1 MG TABLET GT PRN ×3 (08:53→20:29)
[2022-10-27] MEDS: HYDROGEN PEROXIDE 3% 118 ML BOTTLE TP SCH ×2 (08:56→21:24)
[2022-10-27] MEDS: JEVITY 1.2 1000 ML LIQUID GT PRN (15:10)
[2022-10-27 20:00] VITALS: TEMP 98.2
[2022-10-27] MEDS: MELATONIN 3 MG TABLET GT SCH (20:27)
[2022-10-27] MEDS: hydrOXYzine HCL 25 MG TABLET GT SCH (20:27)
[2022-10-28] MEDS: ACETAMINOPHEN 650 MG/20 ML UDC- SA PATIENTS-PAIN ONLY GT PRN (00:17)
[2022-10-28] MEDS: IPRATROPIUM BROMIDE 0.5 MG/2.5 ML NEBU NEB SCH ×4 (01:47→19:17)
[2022-10-28] MEDS: HYDROMORPHONE HCL 4 MG TABLET GT PRN ×5 (03:31→21:06)
[2022-10-28] MEDS: OMEPRAZOLE 20 MG CAPSULE.DR GT SCH (05:09)
[2022-10-28] MEDS: GABAPENTIN 300 MG/6 ML GT SCH ×3 (05:09→20:51)
[2022-10-28] MEDS: RILUZOLE 50 MG TAB GT SCH ×2 (05:09→18:11)
[2022-10-28 07:44] VITALS: TEMP 98.4
[2022-10-28] MEDS: HYDROGEN PEROXIDE 3% 118 ML BOTTLE TP SCH ×2 (08:21→22:31)
[2022-10-28] MEDS: DOCUSATE SODIUM 100 MG/10 ML LIQUID UDC GT SCH ×2 (09:12→20:51)
[2022-10-28] MEDS: OLOPATADINE 0.1% OPHT DROP 5 ML BOTTLE EACHEYE SCH ×2 (09:12→17:06)
[2022-10-28] MEDS: LORATADINE 10 MG TABLET GT SCH (09:12)
[2022-10-28] MEDS: CHLORHEXIDINE GLUCONATE 15 ML MOUTHWASH MM SCH ×2 (09:12→17:06)
[2022-10-28] MEDS: FLUOXETINE HCL 20 MG CAPSULE GT SCH (09:12)
[2022-10-28] MEDS: ENOXAPARIN SODIUM 40 MG/0.4 ML DISP.SYRIN SQ SCH (09:13)
[2022-10-28] MEDS: FLUTICASONE PROP NASAL SPRAY 16 GM BOTTLE NS SCH (09:13)
[2022-10-28] MEDS: DICLOFENAC SODIUM 100 GM GEL..GRAM. TP SCH ×2 (09:14→20:52)
[2022-10-28] MEDS: LORAZEPAM 1 MG TABLET GT PRN ×3 (09:14→21:06)
[2022-10-28] MEDS: REMEDY ESSENTIAL ZINC PASTE 113 GM TP SCH ×2 (09:14→20:52)
[2022-10-28 13:00] VITALS: BP 138/83
[2022-10-28 20:00] VITALS: TEMP 97.6
[2022-10-28] MEDS: MELATONIN 3 MG TABLET GT SCH (20:51)
[2022-10-28] MEDS: hydrOXYzine HCL 25 MG TABLET GT SCH (20:51)
[2022-10-29] MEDS: IPRATROPIUM BROMIDE 0.5 MG/2.5 ML NEBU NEB SCH ×4 (01:16→19:11)
[2022-10-29] MEDS: HYDROMORPHONE HCL 4 MG TABLET GT PRN ×5 (03:30→20:39)
[2022-10-29] MEDS: GABAPENTIN 300 MG/6 ML GT SCH ×3 (05:36→20:25)
[2022-10-29] MEDS: OMEPRAZOLE 20 MG CAPSULE.DR GT SCH (05:36)
[2022-10-29] MEDS: RILUZOLE 50 MG TAB GT SCH ×2 (05:36→18:03)
[2022-10-29] MEDS: HYDROGEN PEROXIDE 3% 118 ML BOTTLE TP SCH ×2 (07:45→21:30)
[2022-10-29 07:48] VITALS: TEMP 98.9
[2022-10-29] MEDS: DOCUSATE SODIUM 100 MG/10 ML LIQUID UDC GT SCH ×2 (08:07→20:23)
[2022-10-29] MEDS: LORATADINE 10 MG TABLET GT SCH (08:07)
[2022-10-29] MEDS: OLOPATADINE 0.1% OPHT DROP 5 ML BOTTLE EACHEYE SCH ×2 (08:07→16:23)
[2022-10-29] MEDS: CHLORHEXIDINE GLUCONATE 15 ML MOUTHWASH MM SCH ×2 (08:08→16:24)
[2022-10-29] MEDS: FLUOXETINE HCL 20 MG CAPSULE GT SCH (08:08)
[2022-10-29] MEDS: FLUTICASONE PROP NASAL SPRAY 16 GM BOTTLE NS SCH (08:09)
[2022-10-29] MEDS: ENOXAPARIN SODIUM 40 MG/0.4 ML DISP.SYRIN SQ SCH (08:11)
[2022-10-29] MEDS: REMEDY ESSENTIAL ZINC PASTE 113 GM TP SCH ×2 (08:11→20:26)
[2022-10-29] MEDS: LORAZEPAM 1 MG TABLET GT PRN ×4 (08:13→20:39)
[2022-10-29] MEDS: DICLOFENAC SODIUM 100 GM GEL..GRAM. TP SCH ×2 (08:37→20:26)
[2022-10-29 12:00] VITALS: BP 120/74; TEMP 97.6; O2SAT 100
[2022-10-29] MEDS: JEVITY 1.2 1000 ML LIQUID GT PRN (12:14)
[2022-10-29 16:05] VITALS: BP 128/82; O2SAT 100
[2022-10-29 20:00] VITALS: TEMP 97.4
[2022-10-29] MEDS: hydrOXYzine HCL 25 MG TABLET GT SCH (20:22)
[2022-10-29] MEDS: MELATONIN 3 MG TABLET GT SCH (20:26)
[2022-10-30] MEDS: IPRATROPIUM BROMIDE 0.5 MG/2.5 ML NEBU NEB SCH ×4 (01:06→19:15)
[2022-10-30] MEDS: HYDROMORPHONE HCL 4 MG TABLET GT PRN ×5 (03:13→20:50)
[2022-10-30] MEDS: LORAZEPAM 1 MG TABLET GT PRN ×5 (03:14→20:50)
[2022-10-30] MEDS: RILUZOLE 50 MG TAB GT SCH ×2 (06:00→17:42)
[2022-10-30] MEDS: OMEPRAZOLE 20 MG CAPSULE.DR GT SCH (06:00)
[2022-10-30] MEDS: GABAPENTIN 300 MG/6 ML GT SCH ×3 (06:00→20:48)
[2022-10-30 08:01] VITALS: TEMP 97.6
[2022-10-30] MEDS: OLOPATADINE 0.1% OPHT DROP 5 ML BOTTLE EACHEYE SCH ×2 (08:09→16:14)
[2022-10-30] MEDS: CHLORHEXIDINE GLUCONATE 15 ML MOUTHWASH MM SCH ×2 (08:10→16:14)
[2022-10-30] MEDS: FLUOXETINE HCL 20 MG CAPSULE GT SCH ×2 (08:10→12:14)
[2022-10-30] MEDS: LORATADINE 10 MG TABLET GT SCH (08:10)
[2022-10-30] MEDS: DOCUSATE SODIUM 100 MG/10 ML LIQUID UDC GT SCH ×2 (08:10→20:46)
[2022-10-30] MEDS: FLUTICASONE PROP NASAL SPRAY 16 GM BOTTLE NS SCH (08:11)
[2022-10-30] MEDS: ENOXAPARIN SODIUM 40 MG/0.4 ML DISP.SYRIN SQ SCH (08:12)
[2022-10-30] MEDS: DICLOFENAC SODIUM 100 GM GEL..GRAM. TP SCH ×2 (08:12→20:50)
[2022-10-30] MEDS: REMEDY ESSENTIAL ZINC PASTE 113 GM TP SCH ×2 (08:13→20:50)
[2022-10-30] MEDS: HYDROGEN PEROXIDE 3% 118 ML BOTTLE TP SCH ×2 (08:41→21:00)
[2022-10-30] MEDS ORDERED: FLUOXETINE HCL 20 MG CAPSULE GT SCH (09:00)
[2022-10-30 12:16] VITALS: BP 125/77; O2SAT 100
[2022-10-30 16:00] VITALS: BP 116/75; O2SAT 100
[2022-10-30 20:00] VITALS: TEMP 98.8
[2022-10-30] MEDS: hydrOXYzine HCL 25 MG TABLET GT SCH (20:45)
[2022-10-30] MEDS: MELATONIN 3 MG TABLET GT SCH (20:49)
[2022-10-31] MEDS: IPRATROPIUM BROMIDE 0.5 MG/2.5 ML NEBU NEB SCH ×4 (01:44→19:28)
[2022-10-31] MEDS: HYDROMORPHONE HCL 4 MG TABLET GT PRN ×4 (03:40→20:10)
[2022-10-31] MEDS: JEVITY 1.2 1000 ML LIQUID GT PRN (04:40)
[2022-10-31] MEDS: RILUZOLE 50 MG TAB GT SCH ×2 (05:33→17:48)
[2022-10-31] MEDS: GABAPENTIN 300 MG/6 ML GT SCH ×3 (05:33→21:00)
[2022-10-31] MEDS: OMEPRAZOLE 20 MG CAPSULE.DR GT SCH (05:33)
[2022-10-31] MEDS: LORATADINE 10 MG TABLET GT SCH (08:49)
[2022-10-31] MEDS: OLOPATADINE 0.1% OPHT DROP 5 ML BOTTLE EACHEYE SCH ×2 (08:49→17:48)
[2022-10-31] MEDS: DOCUSATE SODIUM 100 MG/10 ML LIQUID UDC GT SCH ×2 (08:50→21:00)
[2022-10-31] MEDS: FLUOXETINE HCL 40 MG CAPSULE GT SCH ×2 (08:52→13:06)
[2022-10-31] MEDS: DICLOFENAC SODIUM 100 GM GEL..GRAM. TP SCH ×2 (08:53→21:00)
[2022-10-31] MEDS: CHLORHEXIDINE GLUCONATE 15 ML MOUTHWASH MM SCH ×2 (08:53→17:48)
[2022-10-31] MEDS: FLUTICASONE PROP NASAL SPRAY 16 GM BOTTLE NS SCH (08:53)
[2022-10-31] MEDS: REMEDY ESSENTIAL ZINC PASTE 113 GM TP SCH ×2 (08:53→21:00)
[2022-10-31] MEDS: ENOXAPARIN SODIUM 40 MG/0.4 ML DISP.SYRIN SQ SCH (08:55)
[2022-10-31] MEDS: LORAZEPAM 1 MG TABLET GT PRN ×3 (08:58→20:10)
[2022-10-31] MEDS: HYDROGEN PEROXIDE 3% 118 ML BOTTLE TP SCH ×2 (10:00→21:00)
[2022-10-31 10:30] VITALS: O2SAT 99
[2022-10-31 11:10] VITALS: TEMP 98.6
[2022-10-31] MEDS: ACETAMINOPHEN 650 MG/20 ML UDC- SA PATIENTS-PAIN ONLY GT PRN (17:49)
[2022-10-31 19:46] VITALS: TEMP 97.9
[2022-10-31] MEDS: MELATONIN 3 MG TABLET GT SCH (21:00)
[2022-10-31] MEDS: hydrOXYzine HCL 25 MG TABLET GT SCH (21:00)
[2022-11-01] MEDS: IPRATROPIUM BROMIDE 0.5 MG/2.5 ML NEBU NEB SCH ×4 (01:25→20:26)
[2022-11-01] MEDS: HYDROMORPHONE HCL 4 MG TABLET GT PRN ×5 (02:54→21:00)
[2022-11-01] MEDS: LORAZEPAM 1 MG TABLET GT PRN ×4 (02:55→16:35)
[2022-11-01] MEDS: JEVITY 1.2 1000 ML LIQUID GT PRN (05:31)
[2022-11-01] MEDS: RILUZOLE 50 MG TAB GT SCH ×2 (05:47→17:34)
[2022-11-01] MEDS: GABAPENTIN 300 MG/6 ML GT SCH ×3 (05:47→21:06)
[2022-11-01] MEDS: OMEPRAZOLE 20 MG CAPSULE.DR GT SCH (05:47)
[2022-11-01] MEDS: LORATADINE 10 MG TABLET GT SCH (08:19)
[2022-11-01] MEDS: OLOPATADINE 0.1% OPHT DROP 5 ML BOTTLE EACHEYE SCH ×2 (08:19→16:35)
[2022-11-01] MEDS: DOCUSATE SODIUM 100 MG/10 ML LIQUID UDC GT SCH ×2 (08:20→21:06)
[2022-11-01] MEDS: FLUOXETINE HCL 40 MG CAPSULE GT SCH ×2 (08:21→12:26)
[2022-11-01] MEDS: DICLOFENAC SODIUM 100 GM GEL..GRAM. TP SCH ×2 (08:22→21:07)
[2022-11-01] MEDS: FLUTICASONE PROP NASAL SPRAY 16 GM BOTTLE NS SCH (08:22)
[2022-11-01] MEDS: REMEDY ESSENTIAL ZINC PASTE 113 GM TP SCH ×2 (08:22→21:07)
[2022-11-01] MEDS: CHLORHEXIDINE GLUCONATE 15 ML MOUTHWASH MM SCH ×2 (08:22→16:35)
[2022-11-01] MEDS: ENOXAPARIN SODIUM 40 MG/0.4 ML DISP.SYRIN SQ SCH (08:25)
[2022-11-01] MEDS: HYDROGEN PEROXIDE 3% 118 ML BOTTLE TP SCH ×2 (08:49→20:26)
[2022-11-01 09:28] VITALS: TEMP 98
[2022-11-01 20:00] VITALS: TEMP 97.8
[2022-11-01] MEDS: hydrOXYzine HCL 25 MG TABLET GT SCH (21:06)
[2022-11-01] MEDS: MELATONIN 3 MG TABLET GT SCH (21:06)
[2022-11-02] MEDS: IPRATROPIUM BROMIDE 0.5 MG/2.5 ML NEBU NEB SCH ×4 (01:40→19:50)
[2022-11-02] MEDS: GABAPENTIN 300 MG/6 ML GT SCH ×3 (05:41→20:25)
[2022-11-02] MEDS: RILUZOLE 50 MG TAB GT SCH ×2 (05:42→17:32)
[2022-11-02] MEDS: OMEPRAZOLE 20 MG CAPSULE.DR GT SCH (05:42)
[2022-11-02 08:00] VITALS: TEMP 98.2
[2022-11-02] MEDS: LORATADINE 10 MG TABLET GT SCH (08:37)
[2022-11-02] MEDS: OLOPATADINE 0.1% OPHT DROP 5 ML BOTTLE EACHEYE SCH ×2 (08:37→17:06)
[2022-11-02] MEDS: DOCUSATE SODIUM 100 MG/10 ML LIQUID UDC GT SCH ×2 (08:37→20:11)
[2022-11-02] MEDS: DICLOFENAC SODIUM 100 GM GEL..GRAM. TP SCH ×2 (08:39→20:11)
[2022-11-02] MEDS: CHLORHEXIDINE GLUCONATE 15 ML MOUTHWASH MM SCH ×2 (08:39→17:06)
[2022-11-02] MEDS: FLUTICASONE PROP NASAL SPRAY 16 GM BOTTLE NS SCH (08:39)
[2022-11-02] MEDS: FLUOXETINE HCL 40 MG CAPSULE GT SCH ×2 (08:39→13:10)
[2022-11-02] MEDS: REMEDY ESSENTIAL ZINC PASTE 113 GM TP SCH ×2 (08:40→20:13)
[2022-11-02] MEDS: ENOXAPARIN SODIUM 40 MG/0.4 ML DISP.SYRIN SQ SCH (08:42)
[2022-11-02] MEDS: LORAZEPAM 1 MG TABLET GT PRN ×3 (08:44→20:25)
[2022-11-02] MEDS: HYDROMORPHONE HCL 4 MG TABLET GT PRN ×4 (08:47→21:36)
[2022-11-02] MEDS: HYDROGEN PEROXIDE 3% 118 ML BOTTLE TP SCH ×2 (09:05→21:12)
[2022-11-02 20:00] VITALS: TEMP 99
[2022-11-02] MEDS: MELATONIN 3 MG TABLET GT SCH (20:14)
[2022-11-02] MEDS: hydrOXYzine HCL 25 MG TABLET GT SCH (20:14)
[2022-11-02] MEDS: JEVITY 1.2 1000 ML LIQUID GT PRN (20:16)
[2022-11-03] MEDS: IPRATROPIUM BROMIDE 0.5 MG/2.5 ML NEBU NEB SCH ×4 (01:20→19:58)
[2022-11-03] MEDS: HYDROMORPHONE HCL 4 MG TABLET GT PRN ×5 (01:55→23:00)
[2022-11-03] MEDS: LORAZEPAM 1 MG TABLET GT PRN ×5 (02:20→20:45)
[2022-11-03] MEDS: OMEPRAZOLE 20 MG CAPSULE.DR GT SCH (05:56)
[2022-11-03] MEDS: RILUZOLE 50 MG TAB GT SCH ×2 (05:56→17:38)
[2022-11-03] MEDS: GABAPENTIN 300 MG/6 ML GT SCH ×3 (05:56→20:44)
[2022-11-03] MEDS: HYDROGEN PEROXIDE 3% 118 ML BOTTLE TP SCH ×2 (07:27→19:58)
[2022-11-03] MEDS: LORATADINE 10 MG TABLET GT SCH (08:28)
[2022-11-03] MEDS: OLOPATADINE 0.1% OPHT DROP 5 ML BOTTLE EACHEYE SCH ×2 (08:28→17:12)
[2022-11-03] MEDS: DOCUSATE SODIUM 100 MG/10 ML LIQUID UDC GT SCH ×2 (08:29→20:44)
[2022-11-03] MEDS: CHLORHEXIDINE GLUCONATE 15 ML MOUTHWASH MM SCH ×2 (08:30→17:12)
[2022-11-03] MEDS: FLUOXETINE HCL 40 MG CAPSULE GT SCH ×2 (08:30→13:17)
[2022-11-03] MEDS: FLUTICASONE PROP NASAL SPRAY 16 GM BOTTLE NS SCH (08:30)
[2022-11-03] MEDS: DICLOFENAC SODIUM 100 GM GEL..GRAM. TP SCH ×2 (08:31→20:44)
[2022-11-03] MEDS: REMEDY ESSENTIAL ZINC PASTE 113 GM TP SCH ×2 (08:31→20:44)
[2022-11-03] MEDS: ENOXAPARIN SODIUM 40 MG/0.4 ML DISP.SYRIN SQ SCH (08:35)
[2022-11-03 08:46] VITALS: TEMP 98.9
[2022-11-03] MEDS: JEVITY 1.2 1000 ML LIQUID GT PRN (18:46)
[2022-11-03 20:30] VITALS: TEMP 97.8
[2022-11-03] MEDS: hydrOXYzine HCL 25 MG TABLET GT SCH (20:44)
[2022-11-03] MEDS: MELATONIN 3 MG TABLET GT SCH (20:44)
[2022-11-04] MEDS: IPRATROPIUM BROMIDE 0.5 MG/2.5 ML NEBU NEB SCH ×4 (01:31→19:09)
[2022-11-04] MEDS: HYDROMORPHONE HCL 4 MG TABLET GT PRN ×4 (04:15→20:30)
[2022-11-04] MEDS: OMEPRAZOLE 20 MG CAPSULE.DR GT SCH (05:02)
[2022-11-04] MEDS: RILUZOLE 50 MG TAB GT SCH ×2 (05:02→17:44)
[2022-11-04] MEDS: GABAPENTIN 300 MG/6 ML GT SCH ×3 (05:02→20:39)
[2022-11-04 08:00] VITALS: TEMP 97.8
[2022-11-04] MEDS: LORATADINE 10 MG TABLET GT SCH (09:00)
[2022-11-04] MEDS: HYDROGEN PEROXIDE 3% 118 ML BOTTLE TP SCH ×2 (09:00→21:17)
[2022-11-04] MEDS: DOCUSATE SODIUM 100 MG/10 ML LIQUID UDC GT SCH ×2 (09:00→20:39)
[2022-11-04] MEDS: OLOPATADINE 0.1% OPHT DROP 5 ML BOTTLE EACHEYE SCH ×2 (09:00→17:05)
[2022-11-04] MEDS: FLUOXETINE HCL 40 MG CAPSULE GT SCH ×2 (09:01→13:23)
[2022-11-04] MEDS: FLUTICASONE PROP NASAL SPRAY 16 GM BOTTLE NS SCH (09:02)
[2022-11-04] MEDS: DICLOFENAC SODIUM 100 GM GEL..GRAM. TP SCH ×2 (09:02→20:39)
[2022-11-04] MEDS: REMEDY ESSENTIAL ZINC PASTE 113 GM TP SCH ×2 (09:02→20:39)
[2022-11-04] MEDS: CHLORHEXIDINE GLUCONATE 15 ML MOUTHWASH MM SCH ×2 (09:02→17:05)
[2022-11-04] MEDS: ENOXAPARIN SODIUM 40 MG/0.4 ML DISP.SYRIN SQ SCH (09:05)
[2022-11-04] MEDS: LORAZEPAM 1 MG TABLET GT PRN ×3 (09:06→20:30)
[2022-11-04] MEDS: ACETAMINOPHEN 650 MG/20 ML UDC- SA PATIENTS-PAIN ONLY GT PRN (17:45)
[2022-11-04] MEDS: JEVITY 1.2 1000 ML LIQUID GT PRN (18:49)
[2022-11-04 20:00] VITALS: TEMP 97.2
[2022-11-04] MEDS: MELATONIN 3 MG TABLET GT SCH (20:39)
[2022-11-04] MEDS: hydrOXYzine HCL 25 MG TABLET GT SCH (20:39)
[2022-11-05] MEDS: IPRATROPIUM BROMIDE 0.5 MG/2.5 ML NEBU NEB SCH ×4 (01:03→19:14)
[2022-11-05] MEDS: HYDROMORPHONE HCL 4 MG TABLET GT PRN ×4 (02:35→19:53)
[2022-11-05] MEDS: LORAZEPAM 1 MG TABLET GT PRN ×4 (02:45→19:53)
[2022-11-05 02:50] VITALS: BP 129/80; O2SAT 100
[2022-11-05] MEDS: GABAPENTIN 300 MG/6 ML GT SCH ×3 (05:27→20:01)
[2022-11-05] MEDS: RILUZOLE 50 MG TAB GT SCH ×2 (05:27→17:35)
[2022-11-05] MEDS: OMEPRAZOLE 20 MG CAPSULE.DR GT SCH (05:27)
[2022-11-05] MEDS: HYDROGEN PEROXIDE 3% 118 ML BOTTLE TP SCH ×2 (07:50→19:14)
[2022-11-05 08:00] VITALS: TEMP 97.4
[2022-11-05] MEDS: OLOPATADINE 0.1% OPHT DROP 5 ML BOTTLE EACHEYE SCH ×2 (09:30→17:35)
[2022-11-05] MEDS: FLUTICASONE PROP NASAL SPRAY 16 GM BOTTLE NS SCH (09:30)
[2022-11-05] MEDS: FLUOXETINE HCL 40 MG CAPSULE GT SCH ×2 (09:30→12:51)
[2022-11-05] MEDS: DOCUSATE SODIUM 100 MG/10 ML LIQUID UDC GT SCH ×2 (09:30→20:01)
[2022-11-05] MEDS: DICLOFENAC SODIUM 100 GM GEL..GRAM. TP SCH ×2 (09:30→20:01)
[2022-11-05] MEDS: REMEDY ESSENTIAL ZINC PASTE 113 GM TP SCH ×2 (09:30→20:01)
[2022-11-05] MEDS: ENOXAPARIN SODIUM 40 MG/0.4 ML DISP.SYRIN SQ SCH (09:30)
[2022-11-05] MEDS: LORATADINE 10 MG TABLET GT SCH (09:30)
[2022-11-05] MEDS: CHLORHEXIDINE GLUCONATE 15 ML MOUTHWASH MM SCH ×2 (09:30→17:35)
[2022-11-05] MEDS: ACETAMINOPHEN 650 MG/20 ML UDC- SA PATIENTS-PAIN ONLY GT PRN (12:52)
[2022-11-05 13:20] VITALS: BP 122/71; O2SAT 100
[2022-11-05] MEDS: JEVITY 1.2 1000 ML LIQUID GT PRN (13:34)
[2022-11-05 20:00] VITALS: TEMP 97.8
[2022-11-05] MEDS: hydrOXYzine HCL 25 MG TABLET GT SCH (20:01)
[2022-11-05] MEDS: MELATONIN 3 MG TABLET GT SCH (20:01)
[2022-11-06] MEDS: IPRATROPIUM BROMIDE 0.5 MG/2.5 ML NEBU NEB SCH ×4 (00:33→19:25)
[2022-11-06] MEDS: ACETAMINOPHEN 650 MG/20 ML UDC- SA PATIENTS-PAIN ONLY GT PRN (01:42)
[2022-11-06] MEDS: ONDANSETRON HCL 4 MG TABLET GT PRN (01:43)
[2022-11-06] MEDS: LORAZEPAM 1 MG TABLET GT PRN ×4 (04:25→20:00)
[2022-11-06] MEDS: HYDROMORPHONE HCL 4 MG TABLET GT PRN ×4 (04:25→20:00)
[2022-11-06] MEDS: RILUZOLE 50 MG TAB GT SCH ×2 (05:02→17:11)
[2022-11-06] MEDS: GABAPENTIN 300 MG/6 ML GT SCH ×3 (05:02→20:08)
[2022-11-06] MEDS: OMEPRAZOLE 20 MG CAPSULE.DR GT SCH (05:02)
[2022-11-06 05:15] VITALS: BP 132/85; O2SAT 100
[2022-11-06 08:00] VITALS: TEMP 98.7
[2022-11-06] MEDS: OLOPATADINE 0.1% OPHT DROP 5 ML BOTTLE EACHEYE SCH ×2 (08:21→17:11)
[2022-11-06] MEDS: DOCUSATE SODIUM 100 MG/10 ML LIQUID UDC GT SCH ×2 (08:21→20:08)
[2022-11-06] MEDS: DICLOFENAC SODIUM 100 GM GEL..GRAM. TP SCH ×2 (08:21→20:08)
[2022-11-06] MEDS: LORATADINE 10 MG TABLET GT SCH (08:21)
[2022-11-06] MEDS: CHLORHEXIDINE GLUCONATE 15 ML MOUTHWASH MM SCH ×2 (08:21→17:11)
[2022-11-06] MEDS: FLUTICASONE PROP NASAL SPRAY 16 GM BOTTLE NS SCH (08:21)
[2022-11-06] MEDS: FLUOXETINE HCL 40 MG CAPSULE GT SCH ×2 (08:21→12:42)
[2022-11-06] MEDS: HYDROGEN PEROXIDE 3% 118 ML BOTTLE TP SCH ×2 (08:21→09:10)
[2022-11-06] MEDS: REMEDY ESSENTIAL ZINC PASTE 113 GM TP SCH ×2 (08:22→20:08)
[2022-11-06] MEDS: ENOXAPARIN SODIUM 40 MG/0.4 ML DISP.SYRIN SQ SCH (08:23)
[2022-11-06 20:00] VITALS: TEMP 98.4
[2022-11-06] MEDS: hydrOXYzine HCL 25 MG TABLET GT SCH (20:08)
[2022-11-06] MEDS: MELATONIN 3 MG TABLET GT SCH (20:08)
[2022-11-07] MEDS: IPRATROPIUM BROMIDE 0.5 MG/2.5 ML NEBU NEB SCH ×4 (00:45→19:20)
[2022-11-07] MEDS: HYDROMORPHONE HCL 4 MG TABLET GT PRN ×4 (02:30→21:00)
[2022-11-07] MEDS: RILUZOLE 50 MG TAB GT SCH ×2 (05:45→17:34)
[2022-11-07] MEDS: GABAPENTIN 300 MG/6 ML GT SCH ×3 (05:45→20:56)
[2022-11-07] MEDS: OMEPRAZOLE 20 MG CAPSULE.DR GT SCH (05:45)
[2022-11-07] MEDS: ACETAMINOPHEN 650 MG/20 ML UDC- SA PATIENTS-PAIN ONLY GT PRN (05:45)
[2022-11-07] MEDS: HYDROGEN PEROXIDE 3% 118 ML BOTTLE TP SCH ×2 (07:19→21:03)
[2022-11-07 07:49] VITALS: TEMP 98
[2022-11-07] MEDS: OLOPATADINE 0.1% OPHT DROP 5 ML BOTTLE EACHEYE SCH ×2 (09:29→17:26)
[2022-11-07] MEDS: LORATADINE 10 MG TABLET GT SCH (09:29)
[2022-11-07] MEDS: DOCUSATE SODIUM 100 MG/10 ML LIQUID UDC GT SCH ×2 (09:30→20:56)
[2022-11-07] MEDS: FLUOXETINE HCL 40 MG CAPSULE GT SCH ×2 (09:30→13:11)
[2022-11-07] MEDS: REMEDY ESSENTIAL ZINC PASTE 113 GM TP SCH ×2 (09:31→20:56)
[2022-11-07] MEDS: FLUTICASONE PROP NASAL SPRAY 16 GM BOTTLE NS SCH (09:31)
[2022-11-07] MEDS: CHLORHEXIDINE GLUCONATE 15 ML MOUTHWASH MM SCH ×2 (09:31→17:26)
[2022-11-07] MEDS: DICLOFENAC SODIUM 100 GM GEL..GRAM. TP SCH ×2 (09:31→20:56)
[2022-11-07] MEDS: LORAZEPAM 1 MG TABLET GT PRN ×3 (09:33→20:58)
[2022-11-07] MEDS: ENOXAPARIN SODIUM 40 MG/0.4 ML DISP.SYRIN SQ SCH (09:51)
[2022-11-07] MEDS: JEVITY 1.2 1000 ML LIQUID GT PRN (12:55)
[2022-11-07] MEDS: hydrOXYzine HCL 25 MG TABLET GT SCH (20:56)
[2022-11-07] MEDS: MELATONIN 3 MG TABLET GT SCH (20:56)
[2022-11-08] MEDS: ACETAMINOPHEN 650 MG/20 ML UDC- SA PATIENTS-PAIN ONLY GT PRN ×4 (00:30→06:36)
[2022-11-08] MEDS: IPRATROPIUM BROMIDE 0.5 MG/2.5 ML NEBU NEB SCH ×4 (00:40→19:13)
[2022-11-08] MEDS: HYDROMORPHONE HCL 4 MG TABLET GT PRN ×4 (03:20→20:51)
[2022-11-08] MEDS: GABAPENTIN 300 MG/6 ML GT SCH ×3 (05:27→20:27)
[2022-11-08] MEDS: OMEPRAZOLE 20 MG CAPSULE.DR GT SCH (05:27)
[2022-11-08] MEDS: RILUZOLE 50 MG TAB GT SCH ×2 (05:27→17:36)
[2022-11-08] MEDS: HYDROGEN PEROXIDE 3% 118 ML BOTTLE TP SCH ×2 (07:09→09:11)
[2022-11-08 08:00] VITALS: TEMP 98
[2022-11-08] MEDS: LORATADINE 10 MG TABLET GT SCH (09:12)
[2022-11-08] MEDS: OLOPATADINE 0.1% OPHT DROP 5 ML BOTTLE EACHEYE SCH ×2 (09:12→17:36)
[2022-11-08] MEDS: DOCUSATE SODIUM 100 MG/10 ML LIQUID UDC GT SCH ×2 (09:13→20:26)
[2022-11-08] MEDS: REMEDY ESSENTIAL ZINC PASTE 113 GM TP SCH ×2 (09:14→20:28)
[2022-11-08] MEDS: CHLORHEXIDINE GLUCONATE 15 ML MOUTHWASH MM SCH ×2 (09:14→17:36)
[2022-11-08] MEDS: LORAZEPAM 1 MG TABLET GT PRN ×3 (09:14→20:50)
[2022-11-08] MEDS: FLUOXETINE HCL 40 MG CAPSULE GT SCH ×2 (09:14→13:02)
[2022-11-08] MEDS: FLUTICASONE PROP NASAL SPRAY 16 GM BOTTLE NS SCH (09:14)
[2022-11-08] MEDS: DICLOFENAC SODIUM 100 GM GEL..GRAM. TP SCH ×2 (09:14→20:28)
[2022-11-08] MEDS: ENOXAPARIN SODIUM 40 MG/0.4 ML DISP.SYRIN SQ SCH (09:17)
[2022-11-08] MEDS: JEVITY 1.2 1000 ML LIQUID GT PRN (13:22)
[2022-11-08 20:00] VITALS: TEMP 98.5
[2022-11-08] MEDS: hydrOXYzine HCL 25 MG TABLET GT SCH (20:26)
[2022-11-08] MEDS: MELATONIN 3 MG TABLET GT SCH (20:27)
[2022-11-08 20:50] VITALS: BP 140/89; O2SAT 100
[2022-11-09] MEDS: IPRATROPIUM BROMIDE 0.5 MG/2.5 ML NEBU NEB SCH ×4 (00:52→20:00)
[2022-11-09 03:11] VITALS: BP 123/86; O2SAT 100
[2022-11-09] MEDS: LORAZEPAM 1 MG TABLET GT PRN ×4 (03:11→20:16)
[2022-11-09] MEDS: HYDROMORPHONE HCL 4 MG TABLET GT PRN ×4 (03:11→20:17)
[2022-11-09] MEDS: GABAPENTIN 300 MG/6 ML GT SCH ×3 (05:09→20:13)
[2022-11-09] MEDS: OMEPRAZOLE 20 MG CAPSULE.DR GT SCH (05:10)
[2022-11-09] MEDS: RILUZOLE 50 MG TAB GT SCH ×2 (05:11→17:32)
[2022-11-09 08:22] VITALS: TEMP 98.3
[2022-11-09] MEDS: OLOPATADINE 0.1% OPHT DROP 5 ML BOTTLE EACHEYE SCH ×2 (09:38→17:24)
[2022-11-09] MEDS: LORATADINE 10 MG TABLET GT SCH (09:41)
[2022-11-09] MEDS: FLUOXETINE HCL 40 MG CAPSULE GT SCH ×2 (09:42→13:18)
[2022-11-09] MEDS: CHLORHEXIDINE GLUCONATE 15 ML MOUTHWASH MM SCH ×2 (09:42→17:24)
[2022-11-09] MEDS: DOCUSATE SODIUM 100 MG/10 ML LIQUID UDC GT SCH ×2 (09:42→20:13)
[2022-11-09] MEDS: FLUTICASONE PROP NASAL SPRAY 16 GM BOTTLE NS SCH (09:43)
[2022-11-09] MEDS: ENOXAPARIN SODIUM 40 MG/0.4 ML DISP.SYRIN SQ SCH (09:46)
[2022-11-09] MEDS: DICLOFENAC SODIUM 100 GM GEL..GRAM. TP SCH ×2 (09:48→20:16)
[2022-11-09] MEDS: REMEDY ESSENTIAL ZINC PASTE 113 GM TP SCH ×2 (09:48→20:16)
[2022-11-09] MEDS: HYDROGEN PEROXIDE 3% 118 ML BOTTLE TP SCH ×2 (10:10→20:39)
[2022-11-09] MEDS: risperiDONE 0.25 MG TABLET GT SCH (17:00)
[2022-11-09 20:00] VITALS: BP 127/84; TEMP 98.5; O2SAT 100
[2022-11-09] MEDS: hydrOXYzine HCL 25 MG TABLET GT SCH (20:13)
[2022-11-09] MEDS: MELATONIN 3 MG TABLET GT SCH (20:15)
[2022-11-10] MEDS: IPRATROPIUM BROMIDE 0.5 MG/2.5 ML NEBU NEB SCH ×4 (00:35→19:08)
[2022-11-10 03:00] VITALS: BP 141/92; O2SAT 100
[2022-11-10] MEDS: HYDROMORPHONE HCL 4 MG TABLET GT PRN ×5 (03:18→20:45)
[2022-11-10] MEDS: LORAZEPAM 1 MG TABLET GT PRN ×5 (03:18→20:45)
[2022-11-10] MEDS: OMEPRAZOLE 20 MG CAPSULE.DR GT SCH (05:46)
[2022-11-10] MEDS: GABAPENTIN 300 MG/6 ML GT SCH ×3 (05:46→20:19)
[2022-11-10] MEDS: RILUZOLE 50 MG TAB GT SCH ×2 (05:46→18:08)
[2022-11-10 08:00] VITALS: TEMP 97.4
[2022-11-10] MEDS: OLOPATADINE 0.1% OPHT DROP 5 ML BOTTLE EACHEYE SCH ×2 (08:20→16:42)
[2022-11-10] MEDS: DOCUSATE SODIUM 100 MG/10 ML LIQUID UDC GT SCH ×2 (08:21→20:18)
[2022-11-10] MEDS: LORATADINE 10 MG TABLET GT SCH (08:21)
[2022-11-10] MEDS: FLUOXETINE HCL 40 MG CAPSULE GT SCH ×2 (08:22→12:27)
[2022-11-10] MEDS: CHLORHEXIDINE GLUCONATE 15 ML MOUTHWASH MM SCH ×2 (08:23→16:43)
[2022-11-10] MEDS: risperiDONE 0.25 MG TABLET GT SCH ×2 (08:23→16:42)
[2022-11-10] MEDS: FLUTICASONE PROP NASAL SPRAY 16 GM BOTTLE NS SCH (08:24)
[2022-11-10] MEDS: ENOXAPARIN SODIUM 40 MG/0.4 ML DISP.SYRIN SQ SCH (08:26)
[2022-11-10] MEDS: DICLOFENAC SODIUM 100 GM GEL..GRAM. TP SCH ×2 (08:27→20:21)
[2022-11-10] MEDS: REMEDY ESSENTIAL ZINC PASTE 113 GM TP SCH ×2 (08:28→20:21)
[2022-11-10] MEDS: HYDROGEN PEROXIDE 3% 118 ML BOTTLE TP SCH ×2 (09:49→21:19)
[2022-11-10] MEDS: JEVITY 1.2 1000 ML LIQUID GT PRN (12:18)
[2022-11-10 12:30] VITALS: BP 124/81; O2SAT 100
[2022-11-10 16:00] VITALS: BP 119/75; O2SAT 99
[2022-11-10 19:44] VITALS: TEMP 98.2
[2022-11-10] MEDS: hydrOXYzine HCL 25 MG TABLET GT SCH (20:17)
[2022-11-10] MEDS: MELATONIN 3 MG TABLET GT SCH (20:19)
[2022-11-10 20:45] VITALS: BP 126/84; O2SAT 99
[2022-11-11] MEDS: IPRATROPIUM BROMIDE 0.5 MG/2.5 ML NEBU NEB SCH ×4 (01:03→19:17)
[2022-11-11 03:30] VITALS: BP 137/87; O2SAT 100
[2022-11-11] MEDS: LORAZEPAM 1 MG TABLET GT PRN ×3 (03:30→20:10)
[2022-11-11] MEDS: HYDROMORPHONE HCL 4 MG TABLET GT PRN ×5 (03:30→23:25)
[2022-11-11] MEDS: RILUZOLE 50 MG TAB GT SCH ×2 (05:27→17:50)
[2022-11-11] MEDS: OMEPRAZOLE 20 MG CAPSULE.DR GT SCH (05:27)
[2022-11-11] MEDS: GABAPENTIN 300 MG/6 ML GT SCH ×3 (05:27→20:08)
[2022-11-11] MEDS: HYDROGEN PEROXIDE 3% 118 ML BOTTLE TP SCH ×2 (07:32→21:40)
[2022-11-11 08:00] VITALS: TEMP 97
[2022-11-11] MEDS: OLOPATADINE 0.1% OPHT DROP 5 ML BOTTLE EACHEYE SCH ×2 (08:25→17:49)
[2022-11-11] MEDS: LORATADINE 10 MG TABLET GT SCH (08:26)
[2022-11-11] MEDS: DOCUSATE SODIUM 100 MG/10 ML LIQUID UDC GT SCH ×2 (08:26→20:07)
[2022-11-11] MEDS: CHLORHEXIDINE GLUCONATE 15 ML MOUTHWASH MM SCH ×2 (08:27→17:50)
[2022-11-11] MEDS: FLUOXETINE HCL 40 MG CAPSULE GT SCH ×2 (08:27→12:38)
[2022-11-11] MEDS: risperiDONE 0.25 MG TABLET GT SCH ×2 (08:27→17:49)
[2022-11-11] MEDS: FLUTICASONE PROP NASAL SPRAY 16 GM BOTTLE NS SCH (08:28)
[2022-11-11] MEDS: REMEDY ESSENTIAL ZINC PASTE 113 GM TP SCH ×2 (08:29→20:10)
[2022-11-11] MEDS: DICLOFENAC SODIUM 100 GM GEL..GRAM. TP SCH ×2 (08:29→20:10)
[2022-11-11] MEDS: ENOXAPARIN SODIUM 40 MG/0.4 ML DISP.SYRIN SQ SCH (08:45)
[2022-11-11 20:00] VITALS: TEMP 98.4
[2022-11-11] MEDS: hydrOXYzine HCL 25 MG TABLET GT SCH (20:07)
[2022-11-11] MEDS: MELATONIN 3 MG TABLET GT SCH (20:08)
[2022-11-12] MEDS: IPRATROPIUM BROMIDE 0.5 MG/2.5 ML NEBU NEB SCH ×4 (01:05→20:17)
[2022-11-12] MEDS: HYDROMORPHONE HCL 4 MG TABLET GT PRN ×5 (03:36→21:45)
[2022-11-12] MEDS: OMEPRAZOLE 20 MG CAPSULE.DR GT SCH (05:07)
[2022-11-12] MEDS: GABAPENTIN 300 MG/6 ML GT SCH ×3 (05:07→20:28)
[2022-11-12] MEDS: RILUZOLE 50 MG TAB GT SCH ×2 (05:07→17:34)
[2022-11-12 08:00] VITALS: TEMP 97
[2022-11-12] MEDS: HYDROGEN PEROXIDE 3% 118 ML BOTTLE TP SCH ×2 (09:04→20:17)
[2022-11-12] MEDS: FLUTICASONE PROP NASAL SPRAY 16 GM BOTTLE NS SCH (09:16)
[2022-11-12] MEDS: OLOPATADINE 0.1% OPHT DROP 5 ML BOTTLE EACHEYE SCH ×2 (09:16→17:09)
[2022-11-12] MEDS: FLUOXETINE HCL 40 MG CAPSULE GT SCH ×2 (09:16→13:08)
[2022-11-12] MEDS: LORATADINE 10 MG TABLET GT SCH (09:16)
[2022-11-12] MEDS: CHLORHEXIDINE GLUCONATE 15 ML MOUTHWASH MM SCH ×2 (09:16→17:10)
[2022-11-12] MEDS: DOCUSATE SODIUM 100 MG/10 ML LIQUID UDC GT SCH ×2 (09:16→20:23)
[2022-11-12] MEDS: ENOXAPARIN SODIUM 40 MG/0.4 ML DISP.SYRIN SQ SCH (09:17)
[2022-11-12 09:25] VITALS: BP 124/80; O2SAT 100
[2022-11-12] MEDS: LORAZEPAM 1 MG TABLET GT PRN ×2 (09:25→20:33)
[2022-11-12] MEDS: risperiDONE 0.25 MG TABLET GT SCH ×2 (09:28→17:10)
[2022-11-12] MEDS: DICLOFENAC SODIUM 100 GM GEL..GRAM. TP SCH ×2 (09:28→20:26)
[2022-11-12] MEDS: REMEDY ESSENTIAL ZINC PASTE 113 GM TP SCH ×2 (09:29→20:26)
[2022-11-12] MEDS: JEVITY 1.2 1000 ML LIQUID GT PRN (15:30)
[2022-11-12 20:00] VITALS: TEMP 98.6
[2022-11-12] MEDS: hydrOXYzine HCL 25 MG TABLET GT SCH (20:23)
[2022-11-12] MEDS: MELATONIN 3 MG TABLET GT SCH (20:25)
[2022-11-13] MEDS: IPRATROPIUM BROMIDE 0.5 MG/2.5 ML NEBU NEB SCH ×4 (01:33→19:05)
[2022-11-13] MEDS: HYDROMORPHONE HCL 4 MG TABLET GT PRN ×4 (02:30→17:49)
[2022-11-13] MEDS: RILUZOLE 50 MG TAB GT SCH ×2 (06:20→17:49)
[2022-11-13] MEDS: GABAPENTIN 300 MG/6 ML GT SCH ×3 (06:20→20:10)
[2022-11-13] MEDS: OMEPRAZOLE 20 MG CAPSULE.DR GT SCH (06:20)
[2022-11-13] MEDS: HYDROGEN PEROXIDE 3% 118 ML BOTTLE TP SCH ×2 (09:07→20:10)
[2022-11-13] MEDS: OLOPATADINE 0.1% OPHT DROP 5 ML BOTTLE EACHEYE SCH ×2 (09:18→17:49)
[2022-11-13] MEDS: LORATADINE 10 MG TABLET GT SCH (09:18)
[2022-11-13] MEDS: risperiDONE 0.25 MG TABLET GT SCH ×2 (09:19→17:49)
[2022-11-13] MEDS: DOCUSATE SODIUM 100 MG/10 ML LIQUID UDC GT SCH ×2 (09:19→20:10)
[2022-11-13] MEDS: FLUOXETINE HCL 40 MG CAPSULE GT SCH ×2 (09:19→12:21)
[2022-11-13] MEDS: CHLORHEXIDINE GLUCONATE 15 ML MOUTHWASH MM SCH ×2 (09:20→17:49)
[2022-11-13] MEDS: FLUTICASONE PROP NASAL SPRAY 16 GM BOTTLE NS SCH (09:20)
[2022-11-13] MEDS: DICLOFENAC SODIUM 100 GM GEL..GRAM. TP SCH ×2 (09:21→20:10)
[2022-11-13] MEDS: ENOXAPARIN SODIUM 40 MG/0.4 ML DISP.SYRIN SQ SCH (09:21)
[2022-11-13] MEDS: REMEDY ESSENTIAL ZINC PASTE 113 GM TP SCH ×2 (09:21→20:10)
[2022-11-13] MEDS: LORAZEPAM 1 MG TABLET GT PRN ×3 (09:23→17:49)
[2022-11-13 10:20] VITALS: TEMP 98
[2022-11-13] MEDS: JEVITY 1.2 1000 ML LIQUID GT PRN (12:22)
[2022-11-13 20:00] VITALS: TEMP 98.4
[2022-11-13] MEDS: hydrOXYzine HCL 25 MG TABLET GT SCH (20:09)
[2022-11-13] MEDS: MELATONIN 3 MG TABLET GT SCH (20:10)
[2022-11-14] MEDS: LORAZEPAM 1 MG TABLET GT PRN ×5 (00:24→21:13)
[2022-11-14] MEDS: HYDROMORPHONE HCL 4 MG TABLET GT PRN ×5 (00:24→21:13)
[2022-11-14] MEDS: IPRATROPIUM BROMIDE 0.5 MG/2.5 ML NEBU NEB SCH ×4 (01:05→19:45)
[2022-11-14] MEDS: RILUZOLE 50 MG TAB GT SCH ×2 (06:20→17:39)
[2022-11-14] MEDS: GABAPENTIN 300 MG/6 ML GT SCH ×3 (06:20→20:12)
[2022-11-14] MEDS: OMEPRAZOLE 20 MG CAPSULE.DR GT SCH (06:20)
[2022-11-14 08:00] VITALS: TEMP 98.6
[2022-11-14] MEDS: OLOPATADINE 0.1% OPHT DROP 5 ML BOTTLE EACHEYE SCH ×2 (08:33→16:59)
[2022-11-14] MEDS: DOCUSATE SODIUM 100 MG/10 ML LIQUID UDC GT SCH ×2 (08:34→20:10)
[2022-11-14] MEDS: FLUTICASONE PROP NASAL SPRAY 16 GM BOTTLE NS SCH (08:34)
[2022-11-14] MEDS: REMEDY ESSENTIAL ZINC PASTE 113 GM TP SCH ×2 (08:34→20:12)
[2022-11-14] MEDS: CHLORHEXIDINE GLUCONATE 15 ML MOUTHWASH MM SCH ×2 (08:34→16:59)
[2022-11-14] MEDS: ENOXAPARIN SODIUM 40 MG/0.4 ML DISP.SYRIN SQ SCH (08:34)
[2022-11-14] MEDS: LORATADINE 10 MG TABLET GT SCH (08:34)
[2022-11-14] MEDS: FLUOXETINE HCL 40 MG CAPSULE GT SCH ×2 (08:34→12:58)
[2022-11-14] MEDS: risperiDONE 0.25 MG TABLET GT SCH ×2 (08:34→16:59)
[2022-11-14] MEDS: DICLOFENAC SODIUM 100 GM GEL..GRAM. TP SCH ×2 (08:34→20:11)
[2022-11-14] MEDS: HYDROGEN PEROXIDE 3% 118 ML BOTTLE TP SCH ×2 (09:00→21:00)
[2022-11-14 16:55] VITALS: BP 122/68; O2SAT 100
[2022-11-14] MEDS: hydrOXYzine HCL 25 MG TABLET GT SCH (20:09)
[2022-11-14] MEDS: MELATONIN 3 MG TABLET GT SCH (20:10)
[2022-11-14 20:11] VITALS: TEMP 98
[2022-11-15] MEDS: IPRATROPIUM BROMIDE 0.5 MG/2.5 ML NEBU NEB SCH ×4 (01:38→19:19)
[2022-11-15 04:40] VITALS: BP 118/72; O2SAT 100
[2022-11-15] MEDS: LORAZEPAM 1 MG TABLET GT PRN ×4 (04:44→21:11)
[2022-11-15] MEDS: HYDROMORPHONE HCL 4 MG TABLET GT PRN ×4 (04:44→21:11)
[2022-11-15] MEDS: RILUZOLE 50 MG TAB GT SCH ×2 (06:56→17:07)
[2022-11-15] MEDS: GABAPENTIN 300 MG/6 ML GT SCH ×3 (06:56→21:11)
[2022-11-15] MEDS: OMEPRAZOLE 20 MG CAPSULE.DR GT SCH (06:56)
[2022-11-15] MEDS: JEVITY 1.2 1000 ML LIQUID GT PRN (06:56)
[2022-11-15] MEDS: HYDROGEN PEROXIDE 3% 118 ML BOTTLE TP SCH ×2 (07:17→19:19)
[2022-11-15 07:22] VITALS: TEMP 97.9
[2022-11-15] MEDS: ENOXAPARIN SODIUM 40 MG/0.4 ML DISP.SYRIN SQ SCH (09:05)
[2022-11-15] MEDS: DICLOFENAC SODIUM 100 GM GEL..GRAM. TP SCH ×2 (09:09→21:12)
[2022-11-15] MEDS: REMEDY ESSENTIAL ZINC PASTE 113 GM TP SCH ×2 (09:09→21:11)
[2022-11-15] MEDS: FLUTICASONE PROP NASAL SPRAY 16 GM BOTTLE NS SCH (09:09)
[2022-11-15] MEDS: LORATADINE 10 MG TABLET GT SCH (09:09)
[2022-11-15] MEDS: DOCUSATE SODIUM 100 MG/10 ML LIQUID UDC GT SCH ×2 (09:09→21:10)
[2022-11-15] MEDS: CHLORHEXIDINE GLUCONATE 15 ML MOUTHWASH MM SCH ×2 (09:09→17:07)
[2022-11-15] MEDS: risperiDONE 0.25 MG TABLET GT SCH ×2 (09:09→17:07)
[2022-11-15] MEDS: FLUOXETINE HCL 40 MG CAPSULE GT SCH ×2 (09:09→13:00)
[2022-11-15] MEDS: OLOPATADINE 0.1% OPHT DROP 5 ML BOTTLE EACHEYE SCH ×2 (09:09→17:07)
[2022-11-15 10:20] VITALS: BP 122/69; O2SAT 100
[2022-11-15 16:55] VITALS: BP 127/71; O2SAT 100
[2022-11-15 19:43] VITALS: TEMP 98.8
[2022-11-15] MEDS: hydrOXYzine HCL 25 MG TABLET GT SCH (21:10)
[2022-11-15] MEDS: MELATONIN 3 MG TABLET GT SCH (21:11)
[2022-11-16] MEDS: IPRATROPIUM BROMIDE 0.5 MG/2.5 ML NEBU NEB SCH ×4 (01:16→19:25)
[2022-11-16] MEDS: LORAZEPAM 1 MG TABLET GT PRN ×4 (04:51→21:13)
[2022-11-16] MEDS: HYDROMORPHONE HCL 4 MG TABLET GT PRN ×4 (04:52→21:13)
[2022-11-16] MEDS: GABAPENTIN 300 MG/6 ML GT SCH ×3 (05:15→21:12)
[2022-11-16] MEDS: OMEPRAZOLE 20 MG CAPSULE.DR GT SCH (05:15)
[2022-11-16] MEDS: RILUZOLE 50 MG TAB GT SCH ×2 (05:16→17:36)
[2022-11-16 08:00] VITALS: TEMP 98
[2022-11-16] MEDS: HYDROGEN PEROXIDE 3% 118 ML BOTTLE TP SCH ×2 (08:23→20:53)
[2022-11-16] MEDS: LORATADINE 10 MG TABLET GT SCH (09:06)
[2022-11-16] MEDS: OLOPATADINE 0.1% OPHT DROP 5 ML BOTTLE EACHEYE SCH ×2 (09:06→17:36)
[2022-11-16] MEDS: FLUOXETINE HCL 40 MG CAPSULE GT SCH ×2 (09:06→13:23)
[2022-11-16] MEDS: DOCUSATE SODIUM 100 MG/10 ML LIQUID UDC GT SCH ×2 (09:06→21:12)
[2022-11-16] MEDS: risperiDONE 0.25 MG TABLET GT SCH ×2 (09:07→17:36)
[2022-11-16] MEDS: FLUTICASONE PROP NASAL SPRAY 16 GM BOTTLE NS SCH (09:07)
[2022-11-16] MEDS: CHLORHEXIDINE GLUCONATE 15 ML MOUTHWASH MM SCH ×2 (09:07→17:36)
[2022-11-16] MEDS: REMEDY ESSENTIAL ZINC PASTE 113 GM TP SCH ×2 (09:08→21:12)
[2022-11-16] MEDS: ENOXAPARIN SODIUM 40 MG/0.4 ML DISP.SYRIN SQ SCH (09:08)
[2022-11-16] MEDS: DICLOFENAC SODIUM 100 GM GEL..GRAM. TP SCH ×2 (09:08→21:12)
[2022-11-16] MEDS: JEVITY 1.2 1000 ML LIQUID GT PRN (13:23)
[2022-11-16 19:43] VITALS: TEMP 96.9
[2022-11-16] MEDS: hydrOXYzine HCL 25 MG TABLET GT SCH (21:12)
[2022-11-16] MEDS: MELATONIN 3 MG TABLET GT SCH (21:12)
[2022-11-17] MEDS: IPRATROPIUM BROMIDE 0.5 MG/2.5 ML NEBU NEB SCH ×4 (00:48→19:06)
[2022-11-17] MEDS: HYDROMORPHONE HCL 4 MG TABLET GT PRN ×4 (03:45→18:30)
[2022-11-17] MEDS: LORAZEPAM 1 MG TABLET GT PRN ×4 (03:45→20:53)
[2022-11-17] MEDS: OMEPRAZOLE 20 MG CAPSULE.DR GT SCH (05:50)
[2022-11-17] MEDS: RILUZOLE 50 MG TAB GT SCH ×2 (05:50→18:05)
[2022-11-17] MEDS: GABAPENTIN 300 MG/6 ML GT SCH ×3 (05:50→20:52)
[2022-11-17 08:00] VITALS: TEMP 97.5
[2022-11-17] MEDS: DOCUSATE SODIUM 100 MG/10 ML LIQUID UDC GT SCH ×2 (08:58→20:52)
[2022-11-17] MEDS: LORATADINE 10 MG TABLET GT SCH (08:58)
[2022-11-17] MEDS: OLOPATADINE 0.1% OPHT DROP 5 ML BOTTLE EACHEYE SCH ×2 (08:58→17:00)
[2022-11-17] MEDS: risperiDONE 0.25 MG TABLET GT SCH ×2 (08:59→17:00)
[2022-11-17] MEDS: FLUOXETINE HCL 40 MG CAPSULE GT SCH ×2 (08:59→13:00)
[2022-11-17] MEDS: CHLORHEXIDINE GLUCONATE 15 ML MOUTHWASH MM SCH ×2 (09:00→17:00)
[2022-11-17] MEDS: HYDROGEN PEROXIDE 3% 118 ML BOTTLE TP SCH ×2 (09:00→21:04)
[2022-11-17] MEDS: FLUTICASONE PROP NASAL SPRAY 16 GM BOTTLE NS SCH (09:00)
[2022-11-17] MEDS: ENOXAPARIN SODIUM 40 MG/0.4 ML DISP.SYRIN SQ SCH (09:02)
[2022-11-17] MEDS: REMEDY ESSENTIAL ZINC PASTE 113 GM TP SCH ×2 (09:02→20:52)
[2022-11-17] MEDS: DICLOFENAC SODIUM 100 GM GEL..GRAM. TP SCH ×2 (09:02→20:52)
[2022-11-17 20:00] VITALS: TEMP 98
[2022-11-17] MEDS: MELATONIN 3 MG TABLET GT SCH (20:52)
[2022-11-17] MEDS: hydrOXYzine HCL 25 MG TABLET GT SCH (20:52)
[2022-11-18] MEDS: IPRATROPIUM BROMIDE 0.5 MG/2.5 ML NEBU NEB SCH ×4 (01:05→19:40)
[2022-11-18] MEDS: HYDROMORPHONE HCL 4 MG TABLET GT PRN ×5 (02:30→22:00)
[2022-11-18] MEDS: RILUZOLE 50 MG TAB GT SCH ×2 (05:40→17:07)
[2022-11-18] MEDS: OMEPRAZOLE 20 MG CAPSULE.DR GT SCH (05:40)
[2022-11-18] MEDS: GABAPENTIN 300 MG/6 ML GT SCH ×3 (05:40→21:04)
[2022-11-18 08:00] VITALS: TEMP 99
[2022-11-18] MEDS: OLOPATADINE 0.1% OPHT DROP 5 ML BOTTLE EACHEYE SCH ×2 (08:32→17:07)
[2022-11-18] MEDS: DOCUSATE SODIUM 100 MG/10 ML LIQUID UDC GT SCH ×2 (08:33→21:04)
[2022-11-18] MEDS: LORATADINE 10 MG TABLET GT SCH (08:33)
[2022-11-18] MEDS: LORAZEPAM 1 MG TABLET GT PRN ×3 (08:34→22:00)
[2022-11-18] MEDS: FLUOXETINE HCL 40 MG CAPSULE GT SCH ×2 (08:36→13:26)
[2022-11-18] MEDS: risperiDONE 0.25 MG TABLET GT SCH ×2 (08:38→17:07)
[2022-11-18] MEDS: CHLORHEXIDINE GLUCONATE 15 ML MOUTHWASH MM SCH ×2 (08:38→17:07)
[2022-11-18] MEDS: FLUTICASONE PROP NASAL SPRAY 16 GM BOTTLE NS SCH (08:38)
[2022-11-18] MEDS: REMEDY ESSENTIAL ZINC PASTE 113 GM TP SCH ×2 (08:39→21:04)
[2022-11-18] MEDS: ENOXAPARIN SODIUM 40 MG/0.4 ML DISP.SYRIN SQ SCH (08:39)
[2022-11-18] MEDS: DICLOFENAC SODIUM 100 GM GEL..GRAM. TP SCH ×2 (08:39→21:04)
[2022-11-18] MEDS: HYDROGEN PEROXIDE 3% 118 ML BOTTLE TP SCH ×2 (08:53→21:08)
[2022-11-18] MEDS: JEVITY 1.2 1000 ML LIQUID GT PRN (09:08)
[2022-11-18 19:38] VITALS: TEMP 97.8
[2022-11-18] MEDS: MELATONIN 3 MG TABLET GT SCH (21:04)
[2022-11-18] MEDS: hydrOXYzine HCL 25 MG TABLET GT SCH (21:04)
[2022-11-19] MEDS: IPRATROPIUM BROMIDE 0.5 MG/2.5 ML NEBU NEB SCH ×4 (01:00→20:25)
[2022-11-19] MEDS: HYDROMORPHONE HCL 4 MG TABLET GT PRN ×5 (03:30→21:45)
[2022-11-19] MEDS: JEVITY 1.2 1000 ML LIQUID GT PRN (03:34)
[2022-11-19] MEDS: OMEPRAZOLE 20 MG CAPSULE.DR GT SCH (05:10)
[2022-11-19] MEDS: GABAPENTIN 300 MG/6 ML GT SCH ×3 (05:10→20:17)
[2022-11-19] MEDS: RILUZOLE 50 MG TAB GT SCH ×2 (05:10→18:08)
[2022-11-19] MEDS: HYDROGEN PEROXIDE 3% 118 ML BOTTLE TP SCH ×2 (07:50→21:37)
[2022-11-19 08:00] VITALS: TEMP 98.4
[2022-11-19] MEDS: OLOPATADINE 0.1% OPHT DROP 5 ML BOTTLE EACHEYE SCH ×2 (08:23→16:51)
[2022-11-19] MEDS: FLUOXETINE HCL 40 MG CAPSULE GT SCH ×2 (08:34→13:48)
[2022-11-19] MEDS: DOCUSATE SODIUM 100 MG/10 ML LIQUID UDC GT SCH ×2 (08:34→20:06)
[2022-11-19] MEDS: risperiDONE 0.25 MG TABLET GT SCH ×2 (08:34→16:51)
[2022-11-19] MEDS: LORATADINE 10 MG TABLET GT SCH (08:34)
[2022-11-19] MEDS: CHLORHEXIDINE GLUCONATE 15 ML MOUTHWASH MM SCH ×2 (08:34→16:51)
[2022-11-19] MEDS: FLUTICASONE PROP NASAL SPRAY 16 GM BOTTLE NS SCH (08:35)
[2022-11-19] MEDS: ENOXAPARIN SODIUM 40 MG/0.4 ML DISP.SYRIN SQ SCH (08:36)
[2022-11-19] MEDS: DICLOFENAC SODIUM 100 GM GEL..GRAM. TP SCH ×2 (08:36→20:07)
[2022-11-19] MEDS: LORAZEPAM 1 MG TABLET GT PRN ×3 (08:37→20:16)
[2022-11-19] MEDS: REMEDY ESSENTIAL ZINC PASTE 113 GM TP SCH ×2 (08:37→20:08)
[2022-11-19] MEDS: ACETAMINOPHEN 650 MG/20 ML UDC- SA PATIENTS-PAIN ONLY GT PRN (18:08)
[2022-11-19 20:00] VITALS: TEMP 100.6
[2022-11-19] MEDS: hydrOXYzine HCL 25 MG TABLET GT SCH (20:06)
[2022-11-19] MEDS: MELATONIN 3 MG TABLET GT SCH (20:07)
[2022-11-20] MEDS: IPRATROPIUM BROMIDE 0.5 MG/2.5 ML NEBU NEB SCH ×4 (01:35→20:00)
[2022-11-20] MEDS: HYDROMORPHONE HCL 4 MG TABLET GT PRN ×5 (03:41→22:05)
[2022-11-20] MEDS: GABAPENTIN 300 MG/6 ML GT SCH ×3 (05:06→20:18)
[2022-11-20] MEDS: OMEPRAZOLE 20 MG CAPSULE.DR GT SCH (05:07)
[2022-11-20] MEDS: RILUZOLE 50 MG TAB GT SCH ×2 (05:07→17:20)
[2022-11-20] MEDS: JEVITY 1.2 1000 ML LIQUID GT PRN (05:51)
[2022-11-20] MEDS: HYDROGEN PEROXIDE 3% 118 ML BOTTLE TP SCH ×2 (07:28→21:29)
[2022-11-20 08:00] VITALS: TEMP 99
[2022-11-20] MEDS: DOCUSATE SODIUM 100 MG/10 ML LIQUID UDC GT SCH ×2 (08:35→20:18)
[2022-11-20] MEDS: risperiDONE 0.25 MG TABLET GT SCH ×2 (08:35→17:19)
[2022-11-20] MEDS: FLUOXETINE HCL 40 MG CAPSULE GT SCH ×2 (08:35→12:47)
[2022-11-20] MEDS: OLOPATADINE 0.1% OPHT DROP 5 ML BOTTLE EACHEYE SCH ×2 (08:35→17:19)
[2022-11-20] MEDS: LORATADINE 10 MG TABLET GT SCH (08:35)
[2022-11-20] MEDS: DICLOFENAC SODIUM 100 GM GEL..GRAM. TP SCH ×2 (08:37→20:20)
[2022-11-20] MEDS: FLUTICASONE PROP NASAL SPRAY 16 GM BOTTLE NS SCH (08:37)
[2022-11-20] MEDS: CHLORHEXIDINE GLUCONATE 15 ML MOUTHWASH MM SCH ×2 (08:37→17:19)
[2022-11-20] MEDS: ENOXAPARIN SODIUM 40 MG/0.4 ML DISP.SYRIN SQ SCH (08:39)
[2022-11-20] MEDS: LORAZEPAM 1 MG TABLET GT PRN ×3 (08:48→20:20)
[2022-11-20] MEDS: REMEDY ESSENTIAL ZINC PASTE 113 GM TP SCH ×2 (09:58→20:20)
[2022-11-20 20:00] VITALS: TEMP 98.9
[2022-11-20] MEDS: hydrOXYzine HCL 25 MG TABLET GT SCH (20:18)
[2022-11-20] MEDS: MELATONIN 3 MG TABLET GT SCH (20:18)
[2022-11-21] MEDS: IPRATROPIUM BROMIDE 0.5 MG/2.5 ML NEBU NEB SCH ×4 (02:06→19:15)
[2022-11-21] MEDS: OMEPRAZOLE 20 MG CAPSULE.DR GT SCH (05:29)
[2022-11-21] MEDS: GABAPENTIN 300 MG/6 ML GT SCH ×3 (05:29→20:40)
[2022-11-21] MEDS: RILUZOLE 50 MG TAB GT SCH ×2 (05:29→17:40)
[2022-11-21] MEDS: JEVITY 1.2 1000 ML LIQUID GT PRN (05:30)
[2022-11-21] MEDS: HYDROMORPHONE HCL 4 MG TABLET GT PRN ×4 (05:31→22:29)
[2022-11-21] MEDS: HYDROGEN PEROXIDE 3% 118 ML BOTTLE TP SCH ×2 (07:10→20:44)
[2022-11-21] MEDS: OLOPATADINE 0.1% OPHT DROP 5 ML BOTTLE EACHEYE SCH ×2 (08:37→16:37)
[2022-11-21] MEDS: LORATADINE 10 MG TABLET GT SCH (08:37)
[2022-11-21] MEDS: FLUOXETINE HCL 40 MG CAPSULE GT SCH ×2 (08:38→13:16)
[2022-11-21] MEDS: DOCUSATE SODIUM 100 MG/10 ML LIQUID UDC GT SCH ×2 (08:38→20:40)
[2022-11-21] MEDS: risperiDONE 0.25 MG TABLET GT SCH ×2 (08:38→16:37)
[2022-11-21] MEDS: CHLORHEXIDINE GLUCONATE 15 ML MOUTHWASH MM SCH ×2 (08:38→16:37)
[2022-11-21] MEDS: DICLOFENAC SODIUM 100 GM GEL..GRAM. TP SCH ×2 (08:39→20:40)
[2022-11-21] MEDS: FLUTICASONE PROP NASAL SPRAY 16 GM BOTTLE NS SCH (08:39)
[2022-11-21] MEDS: REMEDY ESSENTIAL ZINC PASTE 113 GM TP SCH ×2 (08:39→20:40)
[2022-11-21] MEDS: LORAZEPAM 1 MG TABLET GT PRN ×3 (08:45→22:29)
[2022-11-21] MEDS: ONDANSETRON HCL 4 MG TABLET GT PRN (08:58)
[2022-11-21] MEDS: ENOXAPARIN SODIUM 40 MG/0.4 ML DISP.SYRIN SQ SCH (09:23)
[2022-11-21 11:23] VITALS: TEMP 97.6
[2022-11-21 20:13] VITALS: TEMP 98
[2022-11-21] MEDS: MELATONIN 3 MG TABLET GT SCH (20:40)
[2022-11-21] MEDS: hydrOXYzine HCL 25 MG TABLET GT SCH (20:40)
[2022-11-22] MEDS: IPRATROPIUM BROMIDE 0.5 MG/2.5 ML NEBU NEB SCH ×4 (00:45→19:56)
[2022-11-22] MEDS: ACETAMINOPHEN 650 MG/20 ML UDC- SA PATIENTS-PAIN ONLY GT PRN ×2 (02:19→17:28)
[2022-11-22] MEDS: LORAZEPAM 1 MG TABLET GT PRN ×4 (03:09→20:13)
[2022-11-22] MEDS: HYDROMORPHONE HCL 4 MG TABLET GT PRN ×4 (03:09→20:14)
[2022-11-22] MEDS: GABAPENTIN 300 MG/6 ML GT SCH ×3 (05:16→20:12)
[2022-11-22] MEDS: OMEPRAZOLE 20 MG CAPSULE.DR GT SCH (05:16)
[2022-11-22] MEDS: RILUZOLE 50 MG TAB GT SCH ×2 (05:17→17:27)
[2022-11-22 08:00] VITALS: TEMP 97.6
[2022-11-22] MEDS: OLOPATADINE 0.1% OPHT DROP 5 ML BOTTLE EACHEYE SCH ×2 (09:06→17:27)
[2022-11-22] MEDS: DOCUSATE SODIUM 100 MG/10 ML LIQUID UDC GT SCH ×2 (09:06→20:12)
[2022-11-22] MEDS: LORATADINE 10 MG TABLET GT SCH (09:06)
[2022-11-22] MEDS: CHLORHEXIDINE GLUCONATE 15 ML MOUTHWASH MM SCH ×2 (09:07→17:27)
[2022-11-22] MEDS: FLUTICASONE PROP NASAL SPRAY 16 GM BOTTLE NS SCH (09:07)
[2022-11-22] MEDS: risperiDONE 0.25 MG TABLET GT SCH ×2 (09:07→17:27)
[2022-11-22] MEDS: FLUOXETINE HCL 40 MG CAPSULE GT SCH ×2 (09:07→12:50)
[2022-11-22] MEDS: ENOXAPARIN SODIUM 40 MG/0.4 ML DISP.SYRIN SQ SCH (09:07)
[2022-11-22] MEDS: REMEDY ESSENTIAL ZINC PASTE 113 GM TP SCH ×2 (09:08→20:13)
[2022-11-22] MEDS: DICLOFENAC SODIUM 100 GM GEL..GRAM. TP SCH ×2 (09:08→20:12)
[2022-11-22] MEDS: HYDROGEN PEROXIDE 3% 118 ML BOTTLE TP SCH ×2 (09:29→19:56)
[2022-11-22] MEDS: JEVITY 1.2 1000 ML LIQUID GT PRN (17:29)
[2022-11-22] MEDS: ONDANSETRON HCL 4 MG TABLET GT PRN (17:34)
[2022-11-22] MEDS: hydrOXYzine HCL 25 MG TABLET GT SCH (20:12)
[2022-11-22] MEDS: MELATONIN 3 MG TABLET GT SCH (20:12)
[2022-11-22 20:17] VITALS: TEMP 98.4
[2022-11-23] MEDS: IPRATROPIUM BROMIDE 0.5 MG/2.5 ML NEBU NEB SCH ×4 (01:27→20:10)
[2022-11-23] MEDS: LORAZEPAM 1 MG TABLET GT PRN ×5 (02:31→21:44)
[2022-11-23] MEDS: ONDANSETRON HCL 4 MG TABLET GT PRN ×2 (02:33→17:08)
[2022-11-23] MEDS: ACETAMINOPHEN 650 MG/20 ML UDC- SA PATIENTS-PAIN ONLY GT PRN (02:34)
[2022-11-23] MEDS: GABAPENTIN 300 MG/6 ML GT SCH ×3 (05:18→20:13)
[2022-11-23] MEDS: RILUZOLE 50 MG TAB GT SCH ×2 (05:18→17:03)
[2022-11-23] MEDS: OMEPRAZOLE 20 MG CAPSULE.DR GT SCH (05:18)
[2022-11-23] MEDS: HYDROMORPHONE HCL 4 MG TABLET GT PRN ×3 (05:40→20:14)
[2022-11-23] MEDS: HYDROGEN PEROXIDE 3% 118 ML BOTTLE TP SCH ×2 (07:29→21:05)
[2022-11-23 08:00] VITALS: TEMP 98.1
[2022-11-23] MEDS: DOCUSATE SODIUM 100 MG/10 ML LIQUID UDC GT SCH ×2 (08:17→20:13)
[2022-11-23] MEDS: OLOPATADINE 0.1% OPHT DROP 5 ML BOTTLE EACHEYE SCH ×2 (08:17→17:02)
[2022-11-23] MEDS: LORATADINE 10 MG TABLET GT SCH (08:17)
[2022-11-23] MEDS: risperiDONE 0.25 MG TABLET GT SCH ×2 (08:20→17:02)
[2022-11-23] MEDS: FLUOXETINE HCL 40 MG CAPSULE GT SCH ×2 (08:20→12:41)
[2022-11-23] MEDS: FLUTICASONE PROP NASAL SPRAY 16 GM BOTTLE NS SCH (08:20)
[2022-11-23] MEDS: CHLORHEXIDINE GLUCONATE 15 ML MOUTHWASH MM SCH ×2 (08:20→17:02)
[2022-11-23] MEDS: DICLOFENAC SODIUM 100 GM GEL..GRAM. TP SCH ×2 (08:21→20:13)
[2022-11-23] MEDS: ENOXAPARIN SODIUM 40 MG/0.4 ML DISP.SYRIN SQ SCH (08:21)
[2022-11-23] MEDS: REMEDY ESSENTIAL ZINC PASTE 113 GM TP SCH ×2 (08:22→20:13)
[2022-11-23] MEDS: JEVITY 1.2 1000 ML LIQUID GT PRN (14:02)
[2022-11-23 20:00] VITALS: TEMP 98.3
[2022-11-23] MEDS: MELATONIN 3 MG TABLET GT SCH (20:13)
[2022-11-23] MEDS: hydrOXYzine HCL 25 MG TABLET GT SCH (20:13)
[2022-11-24] MEDS: IPRATROPIUM BROMIDE 0.5 MG/2.5 ML NEBU NEB SCH ×4 (00:46→19:50)
[2022-11-24] MEDS: HYDROMORPHONE HCL 4 MG TABLET GT PRN ×4 (02:18→22:02)
[2022-11-24] MEDS: OMEPRAZOLE 20 MG CAPSULE.DR GT SCH (06:19)
[2022-11-24] MEDS: JEVITY 1.2 1000 ML LIQUID GT PRN (06:19)
[2022-11-24] MEDS: RILUZOLE 50 MG TAB GT SCH ×2 (06:19→18:55)
[2022-11-24] MEDS: GABAPENTIN 300 MG/6 ML GT SCH ×3 (06:19→20:25)
[2022-11-24] MEDS: HYDROGEN PEROXIDE 3% 118 ML BOTTLE TP SCH ×2 (07:14→20:44)
[2022-11-24 07:32] VITALS: TEMP 98.2
[2022-11-24] MEDS: DOCUSATE SODIUM 100 MG/10 ML LIQUID UDC GT SCH ×2 (08:41→20:09)
[2022-11-24] MEDS: OLOPATADINE 0.1% OPHT DROP 5 ML BOTTLE EACHEYE SCH ×2 (08:41→16:53)
[2022-11-24] MEDS: LORATADINE 10 MG TABLET GT SCH (08:41)
[2022-11-24] MEDS: CHLORHEXIDINE GLUCONATE 15 ML MOUTHWASH MM SCH ×2 (08:42→16:54)
[2022-11-24] MEDS: FLUTICASONE PROP NASAL SPRAY 16 GM BOTTLE NS SCH (08:42)
[2022-11-24] MEDS: risperiDONE 0.25 MG TABLET GT SCH ×2 (08:42→16:54)
[2022-11-24] MEDS: FLUOXETINE HCL 40 MG CAPSULE GT SCH ×2 (08:42→13:15)
[2022-11-24] MEDS: REMEDY ESSENTIAL ZINC PASTE 113 GM TP SCH ×2 (08:42→20:10)
[2022-11-24] MEDS: DICLOFENAC SODIUM 100 GM GEL..GRAM. TP SCH ×2 (08:42→20:10)
[2022-11-24] MEDS: ENOXAPARIN SODIUM 40 MG/0.4 ML DISP.SYRIN SQ SCH (09:43)
[2022-11-24] MEDS: ACETAMINOPHEN 650 MG/20 ML UDC- SA PATIENTS-PAIN ONLY GT PRN (12:03)
[2022-11-24] MEDS: LORAZEPAM 1 MG TABLET GT PRN ×2 (13:16→20:25)
[2022-11-24 20:00] VITALS: TEMP 99.6
[2022-11-24] MEDS: hydrOXYzine HCL 25 MG TABLET GT SCH (20:09)
[2022-11-24] MEDS: MELATONIN 3 MG TABLET GT SCH (20:10)
[2022-11-25] MEDS: JEVITY 1.2 1000 ML LIQUID GT PRN (01:20)
[2022-11-25] MEDS: IPRATROPIUM BROMIDE 0.5 MG/2.5 ML NEBU NEB SCH ×4 (01:32→19:21)
[2022-11-25] MEDS: LORAZEPAM 1 MG TABLET GT PRN ×4 (02:33→20:33)
[2022-11-25] MEDS: HYDROMORPHONE HCL 4 MG TABLET GT PRN ×3 (04:17→18:19)
[2022-11-25] MEDS: GABAPENTIN 300 MG/6 ML GT SCH ×3 (06:06→20:33)
[2022-11-25] MEDS: OMEPRAZOLE 20 MG CAPSULE.DR GT SCH (06:06)
[2022-11-25] MEDS: RILUZOLE 50 MG TAB GT SCH ×2 (06:06→17:58)
[2022-11-25] MEDS: HYDROGEN PEROXIDE 3% 118 ML BOTTLE TP SCH ×2 (07:20→19:21)
[2022-11-25 08:05] VITALS: TEMP 98
[2022-11-25] MEDS: LORATADINE 10 MG TABLET GT SCH (08:42)
[2022-11-25] MEDS: OLOPATADINE 0.1% OPHT DROP 5 ML BOTTLE EACHEYE SCH ×2 (08:42→17:58)
[2022-11-25] MEDS: FLUOXETINE HCL 40 MG CAPSULE GT SCH ×2 (08:43→13:53)
[2022-11-25] MEDS: DOCUSATE SODIUM 100 MG/10 ML LIQUID UDC GT SCH ×2 (08:43→20:33)
[2022-11-25] MEDS: risperiDONE 0.25 MG TABLET GT SCH ×2 (08:44→17:58)
[2022-11-25] MEDS: CHLORHEXIDINE GLUCONATE 15 ML MOUTHWASH MM SCH ×2 (08:44→17:58)
[2022-11-25] MEDS: FLUTICASONE PROP NASAL SPRAY 16 GM BOTTLE NS SCH (08:44)
[2022-11-25] MEDS: ENOXAPARIN SODIUM 40 MG/0.4 ML DISP.SYRIN SQ SCH (08:47)
[2022-11-25] MEDS: REMEDY ESSENTIAL ZINC PASTE 113 GM TP SCH ×2 (08:49→20:33)
[2022-11-25] MEDS: DICLOFENAC SODIUM 100 GM GEL..GRAM. TP SCH ×2 (08:49→20:33)
[2022-11-25 20:00] VITALS: TEMP 95.9
[2022-11-25] MEDS: MELATONIN 3 MG TABLET GT SCH (20:33)
[2022-11-25] MEDS: hydrOXYzine HCL 25 MG TABLET GT SCH (20:33)
[2022-11-25] MEDS: ACETAMINOPHEN 650 MG/20 ML UDC- SA PATIENTS-PAIN ONLY GT PRN (20:34)
[2022-11-26] MEDS: IPRATROPIUM BROMIDE 0.5 MG/2.5 ML NEBU NEB SCH ×4 (01:21→19:14)
[2022-11-26] MEDS: JEVITY 1.2 1000 ML LIQUID GT PRN (02:15)
[2022-11-26] MEDS: HYDROMORPHONE HCL 4 MG TABLET GT PRN ×5 (02:20→21:00)
[2022-11-26] MEDS: OMEPRAZOLE 20 MG CAPSULE.DR GT SCH (05:16)
[2022-11-26] MEDS: GABAPENTIN 300 MG/6 ML GT SCH ×3 (05:16→21:16)
[2022-11-26] MEDS: RILUZOLE 50 MG TAB GT SCH ×2 (05:16→17:26)
[2022-11-26] MEDS: LORAZEPAM 1 MG TABLET GT PRN ×3 (08:00→21:00)
[2022-11-26] MEDS: HYDROGEN PEROXIDE 3% 118 ML BOTTLE TP SCH ×2 (08:00→19:14)
[2022-11-26] MEDS: LORATADINE 10 MG TABLET GT SCH (08:01)
[2022-11-26] MEDS: OLOPATADINE 0.1% OPHT DROP 5 ML BOTTLE EACHEYE SCH ×2 (08:01→16:12)
[2022-11-26] MEDS: DOCUSATE SODIUM 100 MG/10 ML LIQUID UDC GT SCH ×2 (08:02→21:16)
[2022-11-26] MEDS: FLUOXETINE HCL 40 MG CAPSULE GT SCH ×2 (08:02→12:16)
[2022-11-26] MEDS: risperiDONE 0.25 MG TABLET GT SCH ×2 (08:03→16:13)
[2022-11-26] MEDS: CHLORHEXIDINE GLUCONATE 15 ML MOUTHWASH MM SCH ×2 (08:03→16:14)
[2022-11-26] MEDS: FLUTICASONE PROP NASAL SPRAY 16 GM BOTTLE NS SCH (08:04)
[2022-11-26] MEDS: DICLOFENAC SODIUM 100 GM GEL..GRAM. TP SCH ×2 (08:05→21:16)
[2022-11-26] MEDS: ENOXAPARIN SODIUM 40 MG/0.4 ML DISP.SYRIN SQ SCH (08:05)
[2022-11-26] MEDS: REMEDY ESSENTIAL ZINC PASTE 113 GM TP SCH ×2 (08:05→21:16)
[2022-11-26 08:14] VITALS: TEMP 97.7
[2022-11-26 12:00] VITALS: BP 120/68; O2SAT 100
[2022-11-26 20:00] VITALS: TEMP 97.7
[2022-11-26] MEDS: hydrOXYzine HCL 25 MG TABLET GT SCH (21:16)
[2022-11-26] MEDS: MELATONIN 3 MG TABLET GT SCH (21:16)
[2022-11-27] MEDS: IPRATROPIUM BROMIDE 0.5 MG/2.5 ML NEBU NEB SCH ×4 (01:10→19:22)
[2022-11-27] MEDS: JEVITY 1.2 1000 ML LIQUID GT PRN (02:24)
[2022-11-27] MEDS: LORAZEPAM 1 MG TABLET GT PRN ×3 (02:36→20:30)
[2022-11-27] MEDS: HYDROMORPHONE HCL 4 MG TABLET GT PRN ×3 (04:20→17:32)
[2022-11-27] MEDS: GABAPENTIN 300 MG/6 ML GT SCH ×3 (05:06→20:38)
[2022-11-27] MEDS: RILUZOLE 50 MG TAB GT SCH ×2 (05:06→17:33)
[2022-11-27] MEDS: OMEPRAZOLE 20 MG CAPSULE.DR GT SCH (05:06)
[2022-11-27] MEDS: HYDROGEN PEROXIDE 3% 118 ML BOTTLE TP SCH ×2 (07:16→19:22)
[2022-11-27 07:42] VITALS: TEMP 98.1
[2022-11-27] MEDS: OLOPATADINE 0.1% OPHT DROP 5 ML BOTTLE EACHEYE SCH ×2 (08:56→17:18)
[2022-11-27] MEDS: LORATADINE 10 MG TABLET GT SCH (08:56)
[2022-11-27] MEDS: DOCUSATE SODIUM 100 MG/10 ML LIQUID UDC GT SCH ×2 (08:57→20:38)
[2022-11-27] MEDS: CHLORHEXIDINE GLUCONATE 15 ML MOUTHWASH MM SCH ×2 (08:59→17:19)
[2022-11-27] MEDS: FLUOXETINE HCL 40 MG CAPSULE GT SCH ×2 (08:59→12:41)
[2022-11-27] MEDS: risperiDONE 0.25 MG TABLET GT SCH ×2 (08:59→17:18)
[2022-11-27] MEDS: ENOXAPARIN SODIUM 40 MG/0.4 ML DISP.SYRIN SQ SCH (09:00)
[2022-11-27] MEDS: REMEDY ESSENTIAL ZINC PASTE 113 GM TP SCH ×2 (09:00→20:39)
[2022-11-27] MEDS: FLUTICASONE PROP NASAL SPRAY 16 GM BOTTLE NS SCH (09:00)
[2022-11-27] MEDS: DICLOFENAC SODIUM 100 GM GEL..GRAM. TP SCH ×2 (09:00→20:38)
[2022-11-27] MEDS: ACETAMINOPHEN 650 MG/20 ML UDC- SA PATIENTS-PAIN ONLY GT PRN (16:23)
[2022-11-27 20:00] VITALS: TEMP 97.8
[2022-11-27] MEDS: hydrOXYzine HCL 25 MG TABLET GT SCH (20:38)
[2022-11-27] MEDS: MELATONIN 3 MG TABLET GT SCH (20:38)
[2022-11-28] MEDS: IPRATROPIUM BROMIDE 0.5 MG/2.5 ML NEBU NEB SCH ×4 (01:04→20:23)
[2022-11-28] MEDS: HYDROMORPHONE HCL 4 MG TABLET GT PRN ×3 (01:40→20:20)
[2022-11-28] MEDS: JEVITY 1.2 1000 ML LIQUID GT PRN (01:42)
[2022-11-28] MEDS: LORAZEPAM 1 MG TABLET GT PRN ×3 (04:43→17:37)
[2022-11-28] MEDS: GABAPENTIN 300 MG/6 ML GT SCH ×3 (05:09→20:29)
[2022-11-28] MEDS: RILUZOLE 50 MG TAB GT SCH ×2 (05:09→17:35)
[2022-11-28] MEDS: OMEPRAZOLE 20 MG CAPSULE.DR GT SCH (05:09)
[2022-11-28 08:05] VITALS: TEMP 98.4
[2022-11-28] MEDS: HYDROGEN PEROXIDE 3% 118 ML BOTTLE TP SCH ×2 (09:00→20:23)
[2022-11-28] MEDS: DOCUSATE SODIUM 100 MG/10 ML LIQUID UDC GT SCH ×2 (09:33→20:29)
[2022-11-28] MEDS: OLOPATADINE 0.1% OPHT DROP 5 ML BOTTLE EACHEYE SCH ×2 (09:33→17:17)
[2022-11-28] MEDS: LORATADINE 10 MG TABLET GT SCH (09:33)
[2022-11-28] MEDS: FLUOXETINE HCL 40 MG CAPSULE GT SCH ×2 (09:34→13:19)
[2022-11-28] MEDS: risperiDONE 0.25 MG TABLET GT SCH ×2 (09:35→17:17)
[2022-11-28] MEDS: CHLORHEXIDINE GLUCONATE 15 ML MOUTHWASH MM SCH ×2 (09:35→17:17)
[2022-11-28] MEDS: FLUTICASONE PROP NASAL SPRAY 16 GM BOTTLE NS SCH (09:38)
[2022-11-28] MEDS: REMEDY ESSENTIAL ZINC PASTE 113 GM TP SCH ×2 (09:38→20:30)
[2022-11-28] MEDS: DICLOFENAC SODIUM 100 GM GEL..GRAM. TP SCH ×2 (09:38→20:30)
[2022-11-28] MEDS: ENOXAPARIN SODIUM 40 MG/0.4 ML DISP.SYRIN SQ SCH (09:40)
[2022-11-28 20:00] VITALS: TEMP 97.7
[2022-11-28] MEDS: hydrOXYzine HCL 25 MG TABLET GT SCH (20:29)
[2022-11-28] MEDS: MELATONIN 3 MG TABLET GT SCH (20:29)
[2022-11-29] MEDS: IPRATROPIUM BROMIDE 0.5 MG/2.5 ML NEBU NEB SCH ×4 (01:30→19:22)
[2022-11-29] MEDS: JEVITY 1.2 1000 ML LIQUID GT PRN (02:11)
[2022-11-29] MEDS: LORAZEPAM 1 MG TABLET GT PRN ×3 (02:30→20:30)
[2022-11-29] MEDS: HYDROMORPHONE HCL 4 MG TABLET GT PRN ×4 (02:30→23:00)
[2022-11-29] MEDS: OMEPRAZOLE 20 MG CAPSULE.DR GT SCH (05:38)
[2022-11-29] MEDS: GABAPENTIN 300 MG/6 ML GT SCH ×3 (05:38→20:44)
[2022-11-29] MEDS: RILUZOLE 50 MG TAB GT SCH ×2 (05:38→17:42)
[2022-11-29 08:00] VITALS: TEMP 98.1
[2022-11-29] MEDS: REMEDY ESSENTIAL ZINC PASTE 113 GM TP SCH ×2 (09:00→20:44)
[2022-11-29] MEDS: DOCUSATE SODIUM 100 MG/10 ML LIQUID UDC GT SCH ×2 (09:00→20:44)
[2022-11-29] MEDS: HYDROGEN PEROXIDE 3% 118 ML BOTTLE TP SCH ×2 (09:11→19:22)
[2022-11-29] MEDS: risperiDONE 0.25 MG TABLET GT SCH ×2 (09:54→17:34)
[2022-11-29] MEDS: OLOPATADINE 0.1% OPHT DROP 5 ML BOTTLE EACHEYE SCH ×2 (09:54→17:33)
[2022-11-29] MEDS: FLUOXETINE HCL 40 MG CAPSULE GT SCH ×2 (09:54→13:14)
[2022-11-29] MEDS: FLUTICASONE PROP NASAL SPRAY 16 GM BOTTLE NS SCH (09:54)
[2022-11-29] MEDS: LORATADINE 10 MG TABLET GT SCH (09:54)
[2022-11-29] MEDS: CHLORHEXIDINE GLUCONATE 15 ML MOUTHWASH MM SCH ×2 (09:54→17:34)
[2022-11-29] MEDS: DICLOFENAC SODIUM 100 GM GEL..GRAM. TP SCH ×2 (09:55→20:44)
[2022-11-29] MEDS: ENOXAPARIN SODIUM 40 MG/0.4 ML DISP.SYRIN SQ SCH (10:01)
[2022-11-29 20:00] VITALS: TEMP 97.6
[2022-11-29] MEDS: MELATONIN 3 MG TABLET GT SCH (20:44)
[2022-11-29] MEDS: hydrOXYzine HCL 25 MG TABLET GT SCH (20:44)
[2022-11-30] MEDS: IPRATROPIUM BROMIDE 0.5 MG/2.5 ML NEBU NEB SCH ×4 (01:35→19:21)
[2022-11-30] MEDS: JEVITY 1.2 1000 ML LIQUID GT PRN (02:00)
[2022-11-30] MEDS: HYDROMORPHONE HCL 4 MG TABLET GT PRN ×4 (04:00→20:54)
[2022-11-30] MEDS: OMEPRAZOLE 20 MG CAPSULE.DR GT SCH (06:03)
[2022-11-30] MEDS: GABAPENTIN 300 MG/6 ML GT SCH ×3 (06:03→20:53)
[2022-11-30] MEDS: RILUZOLE 50 MG TAB GT SCH ×2 (06:03→17:41)
[2022-11-30] MEDS: HYDROGEN PEROXIDE 3% 118 ML BOTTLE TP SCH ×2 (07:13→19:21)
[2022-11-30 08:00] VITALS: TEMP 98.2
[2022-11-30] MEDS: LORATADINE 10 MG TABLET GT SCH (08:56)
[2022-11-30] MEDS: OLOPATADINE 0.1% OPHT DROP 5 ML BOTTLE EACHEYE SCH ×2 (08:56→17:40)
[2022-11-30] MEDS: DOCUSATE SODIUM 100 MG/10 ML LIQUID UDC GT SCH ×2 (08:58→20:52)
[2022-11-30] MEDS: risperiDONE 0.25 MG TABLET GT SCH ×2 (08:59→17:41)
[2022-11-30] MEDS: FLUOXETINE HCL 40 MG CAPSULE GT SCH ×2 (08:59→13:00)
[2022-11-30] MEDS: CHLORHEXIDINE GLUCONATE 15 ML MOUTHWASH MM SCH ×2 (09:00→17:40)
[2022-11-30] MEDS: FLUTICASONE PROP NASAL SPRAY 16 GM BOTTLE NS SCH (09:00)
[2022-11-30] MEDS: REMEDY ESSENTIAL ZINC PASTE 113 GM TP SCH ×2 (09:00→20:53)
[2022-11-30] MEDS: DICLOFENAC SODIUM 100 GM GEL..GRAM. TP SCH ×2 (09:00→20:53)
[2022-11-30] MEDS: ENOXAPARIN SODIUM 40 MG/0.4 ML DISP.SYRIN SQ SCH (09:01)
[2022-11-30] MEDS: ACETAMINOPHEN 650 MG/20 ML UDC- SA PATIENTS-PAIN ONLY GT PRN (11:23)
[2022-11-30 19:58] VITALS: TEMP 98.6
[2022-11-30] MEDS: hydrOXYzine HCL 25 MG TABLET GT SCH (20:52)
[2022-11-30] MEDS: LORAZEPAM 1 MG TABLET GT PRN (20:53)
[2022-11-30] MEDS: MELATONIN 3 MG TABLET GT SCH (20:53)
[2022-12-01] MEDS: IPRATROPIUM BROMIDE 0.5 MG/2.5 ML NEBU NEB SCH ×4 (00:46→19:26)
[2022-12-01] MEDS: JEVITY 1.2 1000 ML LIQUID GT PRN (02:46)
[2022-12-01] MEDS: LORAZEPAM 1 MG TABLET GT PRN ×3 (02:58→18:23)
[2022-12-01] MEDS: RILUZOLE 50 MG TAB GT SCH ×2 (05:43→18:21)
[2022-12-01] MEDS: GABAPENTIN 300 MG/6 ML GT SCH ×3 (05:43→20:19)
[2022-12-01] MEDS: OMEPRAZOLE 20 MG CAPSULE.DR GT SCH (05:43)
[2022-12-01] MEDS: HYDROGEN PEROXIDE 3% 118 ML BOTTLE TP SCH ×2 (07:17→19:26)
[2022-12-01 08:00] VITALS: TEMP 97.4
[2022-12-01] MEDS: HYDROMORPHONE HCL 4 MG TABLET GT PRN ×2 (09:29→18:41)
[2022-12-01] MEDS: REMEDY ESSENTIAL ZINC PASTE 113 GM TP SCH ×2 (09:29→20:20)
[2022-12-01] MEDS: ENOXAPARIN SODIUM 40 MG/0.4 ML DISP.SYRIN SQ SCH (09:29)
[2022-12-01] MEDS: DICLOFENAC SODIUM 100 GM GEL..GRAM. TP SCH ×2 (09:29→20:19)
[2022-12-01] MEDS: LORATADINE 10 MG TABLET GT SCH (09:30)
[2022-12-01] MEDS: CHLORHEXIDINE GLUCONATE 15 ML MOUTHWASH MM SCH ×2 (09:30→17:00)
[2022-12-01] MEDS: OLOPATADINE 0.1% OPHT DROP 5 ML BOTTLE EACHEYE SCH ×2 (09:30→17:00)
[2022-12-01] MEDS: FLUOXETINE HCL 40 MG CAPSULE GT SCH ×2 (09:30→13:34)
[2022-12-01] MEDS: risperiDONE 0.25 MG TABLET GT SCH ×2 (09:30→17:00)
[2022-12-01] MEDS: FLUTICASONE PROP NASAL SPRAY 16 GM BOTTLE NS SCH (09:30)
[2022-12-01] MEDS: DOCUSATE SODIUM 100 MG/10 ML LIQUID UDC GT SCH ×2 (09:30→20:19)
[2022-12-01 11:50] VITALS: O2SAT 99
[2022-12-01] MEDS: ONDANSETRON HCL 4 MG TABLET GT PRN (13:34)
[2022-12-01 20:00] VITALS: TEMP 98
[2022-12-01] MEDS: hydrOXYzine HCL 25 MG TABLET GT SCH (20:19)
[2022-12-01] MEDS: MELATONIN 3 MG TABLET GT SCH (20:19)
[2022-12-02] MEDS: LORAZEPAM 1 MG TABLET GT PRN ×2 (00:45→13:10)
[2022-12-02] MEDS: IPRATROPIUM BROMIDE 0.5 MG/2.5 ML NEBU NEB SCH ×4 (01:05→19:50)
[2022-12-02] MEDS: HYDROMORPHONE HCL 4 MG TABLET GT PRN ×2 (03:01→13:19)
[2022-12-02] MEDS: RILUZOLE 50 MG TAB GT SCH ×2 (05:33→18:28)
[2022-12-02] MEDS: GABAPENTIN 300 MG/6 ML GT SCH ×3 (05:33→20:48)
[2022-12-02] MEDS: JEVITY 1.2 1000 ML LIQUID GT PRN (05:33)
[2022-12-02] MEDS: OMEPRAZOLE 20 MG CAPSULE.DR GT SCH (05:33)
[2022-12-02 08:00] VITALS: TEMP 97.6
[2022-12-02] MEDS: DOCUSATE SODIUM 100 MG/10 ML LIQUID UDC GT SCH ×2 (09:00→20:48)
[2022-12-02] MEDS: risperiDONE 0.25 MG TABLET GT SCH ×2 (09:00→17:00)
[2022-12-02] MEDS: ENOXAPARIN SODIUM 40 MG/0.4 ML DISP.SYRIN SQ SCH (09:00)
[2022-12-02] MEDS: LORATADINE 10 MG TABLET GT SCH (09:00)
[2022-12-02] MEDS: REMEDY ESSENTIAL ZINC PASTE 113 GM TP SCH ×2 (09:00→20:48)
[2022-12-02] MEDS: CHLORHEXIDINE GLUCONATE 15 ML MOUTHWASH MM SCH ×2 (09:00→17:00)
[2022-12-02] MEDS: FLUOXETINE HCL 40 MG CAPSULE GT SCH ×2 (09:00→13:09)
[2022-12-02] MEDS: FLUTICASONE PROP NASAL SPRAY 16 GM BOTTLE NS SCH (09:00)
[2022-12-02] MEDS: DICLOFENAC SODIUM 100 GM GEL..GRAM. TP SCH ×2 (09:00→20:48)
[2022-12-02] MEDS: OLOPATADINE 0.1% OPHT DROP 5 ML BOTTLE EACHEYE SCH ×2 (09:00→17:00)
[2022-12-02] MEDS: HYDROGEN PEROXIDE 3% 118 ML BOTTLE TP SCH ×2 (09:13→21:31)
[2022-12-02 20:00] VITALS: TEMP 97.7
[2022-12-02] MEDS: MELATONIN 3 MG TABLET GT SCH (20:48)
[2022-12-02] MEDS: hydrOXYzine HCL 25 MG TABLET GT SCH (20:48)
[2022-12-03] MEDS: IPRATROPIUM BROMIDE 0.5 MG/2.5 ML NEBU NEB SCH ×4 (01:24→19:05)
[2022-12-03] MEDS: HYDROMORPHONE HCL 4 MG TABLET GT PRN ×2 (03:36→09:13)
[2022-12-03] MEDS: JEVITY 1.2 1000 ML LIQUID GT PRN (03:37)
[2022-12-03] MEDS: RILUZOLE 50 MG TAB GT SCH ×2 (05:49→18:06)
[2022-12-03] MEDS: GABAPENTIN 300 MG/6 ML GT SCH ×3 (05:49→21:00)
[2022-12-03] MEDS: OMEPRAZOLE 20 MG CAPSULE.DR GT SCH (05:49)
[2022-12-03] MEDS: HYDROGEN PEROXIDE 3% 118 ML BOTTLE TP SCH ×2 (07:08→21:12)
[2022-12-03 07:36] VITALS: TEMP 97.7
[2022-12-03] MEDS: OLOPATADINE 0.1% OPHT DROP 5 ML BOTTLE EACHEYE SCH ×2 (09:08→17:00)
[2022-12-03] MEDS: LORATADINE 10 MG TABLET GT SCH (09:09)
[2022-12-03] MEDS: DOCUSATE SODIUM 100 MG/10 ML LIQUID UDC GT SCH ×2 (09:09→21:00)
[2022-12-03] MEDS: FLUOXETINE HCL 40 MG CAPSULE GT SCH ×2 (09:09→13:00)
[2022-12-03] MEDS: risperiDONE 0.25 MG TABLET GT SCH ×2 (09:10→17:00)
[2022-12-03] MEDS: FLUTICASONE PROP NASAL SPRAY 16 GM BOTTLE NS SCH (09:10)
[2022-12-03] MEDS: CHLORHEXIDINE GLUCONATE 15 ML MOUTHWASH MM SCH ×2 (09:10→17:00)
[2022-12-03] MEDS: ENOXAPARIN SODIUM 40 MG/0.4 ML DISP.SYRIN SQ SCH (09:11)
[2022-12-03] MEDS: DICLOFENAC SODIUM 100 GM GEL..GRAM. TP SCH ×2 (09:12→21:00)
[2022-12-03] MEDS: REMEDY ESSENTIAL ZINC PASTE 113 GM TP SCH ×2 (09:12→21:00)
[2022-12-03] MEDS: LORAZEPAM 1 MG TABLET GT PRN ×2 (14:31→18:32)
[2022-12-03 20:00] VITALS: TEMP 98.3
[2022-12-03] MEDS: MELATONIN 3 MG TABLET GT SCH (21:00)
[2022-12-03] MEDS: hydrOXYzine HCL 25 MG TABLET GT SCH (21:00)
[2022-12-04] MEDS: IPRATROPIUM BROMIDE 0.5 MG/2.5 ML NEBU NEB SCH ×4 (01:04→19:23)
[2022-12-04] MEDS: LORAZEPAM 1 MG TABLET GT PRN ×3 (03:15→18:03)
[2022-12-04] MEDS: HYDROMORPHONE HCL 4 MG TABLET GT PRN ×3 (04:20→13:57)
[2022-12-04] MEDS: GABAPENTIN 300 MG/6 ML GT SCH ×3 (06:11→20:09)
[2022-12-04] MEDS: OMEPRAZOLE 20 MG CAPSULE.DR GT SCH (06:12)
[2022-12-04] MEDS: RILUZOLE 50 MG TAB GT SCH ×2 (06:12→18:01)
[2022-12-04] MEDS: HYDROGEN PEROXIDE 3% 118 ML BOTTLE TP SCH ×2 (07:54→19:23)
[2022-12-04 07:55] VITALS: TEMP 97.5
[2022-12-04] MEDS: DOCUSATE SODIUM 100 MG/10 ML LIQUID UDC GT SCH ×2 (09:36→20:07)
[2022-12-04] MEDS: LORATADINE 10 MG TABLET GT SCH (09:36)
[2022-12-04] MEDS: FLUOXETINE HCL 40 MG CAPSULE GT SCH ×2 (09:36→13:03)
[2022-12-04] MEDS: OLOPATADINE 0.1% OPHT DROP 5 ML BOTTLE EACHEYE SCH ×2 (09:36→18:00)
[2022-12-04] MEDS: FLUTICASONE PROP NASAL SPRAY 16 GM BOTTLE NS SCH (09:37)
[2022-12-04] MEDS: risperiDONE 0.25 MG TABLET GT SCH ×2 (09:37→18:00)
[2022-12-04] MEDS: CHLORHEXIDINE GLUCONATE 15 ML MOUTHWASH MM SCH ×2 (09:37→18:00)
[2022-12-04] MEDS: ENOXAPARIN SODIUM 40 MG/0.4 ML DISP.SYRIN SQ SCH (09:38)
[2022-12-04] MEDS: REMEDY ESSENTIAL ZINC PASTE 113 GM TP SCH ×2 (09:39→20:07)
[2022-12-04] MEDS: DICLOFENAC SODIUM 100 GM GEL..GRAM. TP SCH ×2 (09:39→20:07)
[2022-12-04] MEDS: JEVITY 1.2 1000 ML LIQUID GT PRN (11:10)
[2022-12-04 20:00] VITALS: TEMP 97.9
[2022-12-04] MEDS: hydrOXYzine HCL 25 MG TABLET GT SCH (20:06)
[2022-12-04] MEDS: MELATONIN 3 MG TABLET GT SCH (20:07)
[2022-12-05] MEDS: IPRATROPIUM BROMIDE 0.5 MG/2.5 ML NEBU NEB SCH ×4 (01:47→19:15)
[2022-12-05] MEDS: LORAZEPAM 1 MG TABLET GT PRN ×3 (05:06→21:18)
[2022-12-05] MEDS: GABAPENTIN 300 MG/6 ML GT SCH ×3 (05:06→21:16)
[2022-12-05] MEDS: OMEPRAZOLE 20 MG CAPSULE.DR GT SCH (05:06)
[2022-12-05] MEDS: RILUZOLE 50 MG TAB GT SCH ×2 (05:06→17:33)
[2022-12-05] MEDS: HYDROGEN PEROXIDE 3% 118 ML BOTTLE TP SCH ×2 (07:47→20:40)
[2022-12-05 08:00] VITALS: TEMP 97.6
[2022-12-05] MEDS: OLOPATADINE 0.1% OPHT DROP 5 ML BOTTLE EACHEYE SCH ×2 (09:41→17:25)
[2022-12-05] MEDS: LORATADINE 10 MG TABLET GT SCH (09:41)
[2022-12-05] MEDS: DOCUSATE SODIUM 100 MG/10 ML LIQUID UDC GT SCH ×2 (09:41→21:13)
[2022-12-05] MEDS: risperiDONE 0.25 MG TABLET GT SCH ×2 (09:42→17:25)
[2022-12-05] MEDS: CHLORHEXIDINE GLUCONATE 15 ML MOUTHWASH MM SCH ×2 (09:42→17:25)
[2022-12-05] MEDS: FLUOXETINE HCL 40 MG CAPSULE GT SCH ×2 (09:42→13:41)
[2022-12-05] MEDS: REMEDY ESSENTIAL ZINC PASTE 113 GM TP SCH ×2 (09:43→21:18)
[2022-12-05] MEDS: FLUTICASONE PROP NASAL SPRAY 16 GM BOTTLE NS SCH (09:43)
[2022-12-05] MEDS: DICLOFENAC SODIUM 100 GM GEL..GRAM. TP SCH ×2 (09:43→21:18)
[2022-12-05] MEDS: ENOXAPARIN SODIUM 40 MG/0.4 ML DISP.SYRIN SQ SCH (09:48)
[2022-12-05] MEDS: HYDROMORPHONE HCL 4 MG TABLET GT PRN (10:06)
[2022-12-05] MEDS: JEVITY 1.2 1000 ML LIQUID GT PRN (11:38)
[2022-12-05 20:00] VITALS: TEMP 98
[2022-12-05] MEDS: hydrOXYzine HCL 25 MG TABLET GT SCH (21:13)
[2022-12-05] MEDS: MELATONIN 3 MG TABLET GT SCH (21:18)
[2022-12-06] MEDS: IPRATROPIUM BROMIDE 0.5 MG/2.5 ML NEBU NEB SCH ×4 (00:39→19:19)
[2022-12-06] MEDS: LORAZEPAM 1 MG TABLET GT PRN ×3 (04:00→14:11)
[2022-12-06] MEDS: GABAPENTIN 300 MG/6 ML GT SCH ×3 (05:12→21:00)
[2022-12-06] MEDS: RILUZOLE 50 MG TAB GT SCH ×2 (05:12→17:36)
[2022-12-06] MEDS: OMEPRAZOLE 20 MG CAPSULE.DR GT SCH (05:12)
[2022-12-06] MEDS: HYDROMORPHONE HCL 4 MG TABLET GT PRN ×3 (05:19→18:00)
[2022-12-06] MEDS: DOCUSATE SODIUM 100 MG/10 ML LIQUID UDC GT SCH ×2 (09:09→21:00)
[2022-12-06] MEDS: OLOPATADINE 0.1% OPHT DROP 5 ML BOTTLE EACHEYE SCH ×2 (09:09→17:36)
[2022-12-06] MEDS: LORATADINE 10 MG TABLET GT SCH (09:09)
[2022-12-06] MEDS: risperiDONE 0.25 MG TABLET GT SCH ×2 (09:10→17:36)
[2022-12-06] MEDS: FLUOXETINE HCL 40 MG CAPSULE GT SCH ×2 (09:10→14:00)
[2022-12-06] MEDS: CHLORHEXIDINE GLUCONATE 15 ML MOUTHWASH MM SCH ×2 (09:10→17:36)
[2022-12-06] MEDS: DICLOFENAC SODIUM 100 GM GEL..GRAM. TP SCH ×2 (09:11→22:00)
[2022-12-06] MEDS: FLUTICASONE PROP NASAL SPRAY 16 GM BOTTLE NS SCH (09:11)
[2022-12-06] MEDS: ENOXAPARIN SODIUM 40 MG/0.4 ML DISP.SYRIN SQ SCH (09:11)
[2022-12-06] MEDS: REMEDY ESSENTIAL ZINC PASTE 113 GM TP SCH ×2 (09:12→21:00)
[2022-12-06] MEDS: JEVITY 1.2 1000 ML LIQUID GT PRN (09:16)
[2022-12-06] MEDS: HYDROGEN PEROXIDE 3% 118 ML BOTTLE TP SCH ×2 (09:24→21:51)
[2022-12-06 11:05] VITALS: TEMP 98.5
[2022-12-06 20:00] VITALS: TEMP 98.4
[2022-12-06] MEDS: MELATONIN 3 MG TABLET GT SCH (21:00)
[2022-12-06] MEDS: hydrOXYzine HCL 25 MG TABLET GT SCH (21:00)
[2022-12-07] MEDS: IPRATROPIUM BROMIDE 0.5 MG/2.5 ML NEBU NEB SCH ×4 (01:24→19:50)
[2022-12-07] MEDS: LORAZEPAM 1 MG TABLET GT PRN ×4 (05:14→21:46)
[2022-12-07] MEDS: GABAPENTIN 300 MG/6 ML GT SCH ×3 (05:24→21:25)
[2022-12-07] MEDS: OMEPRAZOLE 20 MG CAPSULE.DR GT SCH (05:24)
[2022-12-07] MEDS: RILUZOLE 50 MG TAB GT SCH ×2 (05:24→17:28)
[2022-12-07 07:26] VITALS: TEMP 97.8
[2022-12-07] MEDS: HYDROGEN PEROXIDE 3% 118 ML BOTTLE TP SCH ×2 (07:31→21:00)
[2022-12-07] MEDS: OLOPATADINE 0.1% OPHT DROP 5 ML BOTTLE EACHEYE SCH ×2 (09:00→17:26)
[2022-12-07] MEDS: DOCUSATE SODIUM 100 MG/10 ML LIQUID UDC GT SCH ×2 (09:00→21:25)
[2022-12-07] MEDS: FLUOXETINE HCL 40 MG CAPSULE GT SCH ×2 (09:00→13:08)
[2022-12-07] MEDS: risperiDONE 0.25 MG TABLET GT SCH ×2 (09:00→17:27)
[2022-12-07] MEDS: CHLORHEXIDINE GLUCONATE 15 ML MOUTHWASH MM SCH ×2 (09:00→17:28)
[2022-12-07] MEDS: REMEDY ESSENTIAL ZINC PASTE 113 GM TP SCH ×2 (09:00→21:25)
[2022-12-07] MEDS: LORATADINE 10 MG TABLET GT SCH (09:00)
[2022-12-07] MEDS: DICLOFENAC SODIUM 100 GM GEL..GRAM. TP SCH ×2 (09:00→21:25)
[2022-12-07] MEDS: FLUTICASONE PROP NASAL SPRAY 16 GM BOTTLE NS SCH (09:00)
[2022-12-07] MEDS: ENOXAPARIN SODIUM 40 MG/0.4 ML DISP.SYRIN SQ SCH (09:00)
[2022-12-07] MEDS: JEVITY 1.2 1000 ML LIQUID GT PRN (13:09)
[2022-12-07 20:00] VITALS: TEMP 97.9
[2022-12-07] MEDS: MELATONIN 3 MG TABLET GT SCH (21:25)
[2022-12-07] MEDS: hydrOXYzine HCL 25 MG TABLET GT SCH (21:25)
[2022-12-07] MEDS: HYDROMORPHONE HCL 4 MG TABLET GT PRN (21:26)
[2022-12-08] MEDS: IPRATROPIUM BROMIDE 0.5 MG/2.5 ML NEBU NEB SCH ×4 (01:41→19:15)
[2022-12-08] MEDS: RILUZOLE 50 MG TAB GT SCH ×2 (05:19→17:53)
[2022-12-08] MEDS: GABAPENTIN 300 MG/6 ML GT SCH ×3 (05:19→21:16)
[2022-12-08] MEDS: OMEPRAZOLE 20 MG CAPSULE.DR GT SCH (05:19)
[2022-12-08 07:23] VITALS: TEMP 98.6
[2022-12-08] MEDS: HYDROGEN PEROXIDE 3% 118 ML BOTTLE TP SCH ×2 (08:50→21:44)
[2022-12-08] MEDS: LORATADINE 10 MG TABLET GT SCH (09:19)
[2022-12-08] MEDS: OLOPATADINE 0.1% OPHT DROP 5 ML BOTTLE EACHEYE SCH ×2 (09:19→17:52)
[2022-12-08] MEDS: risperiDONE 0.25 MG TABLET GT SCH ×2 (09:20→17:52)
[2022-12-08] MEDS: FLUTICASONE PROP NASAL SPRAY 16 GM BOTTLE NS SCH (09:20)
[2022-12-08] MEDS: FLUOXETINE HCL 40 MG CAPSULE GT SCH ×2 (09:20→12:41)
[2022-12-08] MEDS: CHLORHEXIDINE GLUCONATE 15 ML MOUTHWASH MM SCH ×2 (09:20→17:53)
[2022-12-08] MEDS: DOCUSATE SODIUM 100 MG/10 ML LIQUID UDC GT SCH ×2 (09:20→21:16)
[2022-12-08] MEDS: ENOXAPARIN SODIUM 40 MG/0.4 ML DISP.SYRIN SQ SCH (09:21)
[2022-12-08] MEDS: DICLOFENAC SODIUM 100 GM GEL..GRAM. TP SCH ×2 (09:21→21:17)
[2022-12-08] MEDS: REMEDY ESSENTIAL ZINC PASTE 113 GM TP SCH ×2 (09:21→21:17)
[2022-12-08] MEDS: LORAZEPAM 1 MG TABLET GT PRN ×2 (09:28→23:00)
[2022-12-08] MEDS: JEVITY 1.2 1000 ML LIQUID GT PRN (09:28)
[2022-12-08] MEDS: HYDROMORPHONE HCL 4 MG TABLET GT PRN ×2 (12:42→21:20)
[2022-12-08] MEDS: hydrOXYzine HCL 25 MG TABLET GT SCH (21:16)
[2022-12-08] MEDS: MELATONIN 3 MG TABLET GT SCH (21:16)
[2022-12-08] MEDS: CLOTRIMAZOLE 1% VAG CREAM 45 GM TUBE VG SCH (21:17)
[2022-12-08 22:46] VITALS: TEMP 97.6
[2022-12-09] MEDS: IPRATROPIUM BROMIDE 0.5 MG/2.5 ML NEBU NEB SCH ×4 (00:43→19:08)
[2022-12-09] MEDS: JEVITY 1.2 1000 ML LIQUID GT PRN (04:57)
[2022-12-09] MEDS: OMEPRAZOLE 20 MG CAPSULE.DR GT SCH (05:29)
[2022-12-09] MEDS: GABAPENTIN 300 MG/6 ML GT SCH ×3 (05:29→20:53)
[2022-12-09] MEDS: RILUZOLE 50 MG TAB GT SCH ×2 (05:30→17:20)
[2022-12-09] MEDS: HYDROGEN PEROXIDE 3% 118 ML BOTTLE TP SCH ×2 (07:25→21:42)
[2022-12-09 07:55] VITALS: TEMP 98.6
[2022-12-09] MEDS: LORATADINE 10 MG TABLET GT SCH (09:00)
[2022-12-09] MEDS: FLUOXETINE HCL 40 MG CAPSULE GT SCH ×2 (09:00→13:24)
[2022-12-09] MEDS: OLOPATADINE 0.1% OPHT DROP 5 ML BOTTLE EACHEYE SCH ×2 (09:00→17:19)
[2022-12-09] MEDS: DICLOFENAC SODIUM 100 GM GEL..GRAM. TP SCH ×2 (09:00→20:53)
[2022-12-09] MEDS: REMEDY ESSENTIAL ZINC PASTE 113 GM TP SCH ×2 (09:00→20:53)
[2022-12-09] MEDS: ENOXAPARIN SODIUM 40 MG/0.4 ML DISP.SYRIN SQ SCH (09:00)
[2022-12-09] MEDS: DOCUSATE SODIUM 100 MG/10 ML LIQUID UDC GT SCH ×2 (09:00→20:53)
[2022-12-09] MEDS: FLUTICASONE PROP NASAL SPRAY 16 GM BOTTLE NS SCH (09:00)
[2022-12-09] MEDS: risperiDONE 0.25 MG TABLET GT SCH ×2 (09:00→17:20)
[2022-12-09] MEDS: CHLORHEXIDINE GLUCONATE 15 ML MOUTHWASH MM SCH ×2 (09:00→17:20)
[2022-12-09] MEDS: HYDROMORPHONE HCL 4 MG TABLET GT PRN ×2 (10:19→22:00)
[2022-12-09] MEDS ORDERED: INFLUENZA VACCINE 2023-2024 0.5 ML DISP.SYRIN IM ONE (13:00)
[2022-12-09] MEDS: LORAZEPAM 1 MG TABLET GT PRN (13:24)
[2022-12-09 20:00] VITALS: TEMP 99.2
[2022-12-09] MEDS: CLOTRIMAZOLE 1% VAG CREAM 45 GM TUBE VG SCH (20:53)
[2022-12-09] MEDS: MELATONIN 3 MG TABLET GT SCH (20:53)
[2022-12-09] MEDS: hydrOXYzine HCL 25 MG TABLET GT SCH (20:53)
[2022-12-10] MEDS: IPRATROPIUM BROMIDE 0.5 MG/2.5 ML NEBU NEB SCH ×4 (01:03→19:05)
[2022-12-10] MEDS: JEVITY 1.2 1000 ML LIQUID GT PRN (01:19)
[2022-12-10] MEDS: HYDROMORPHONE HCL 4 MG TABLET GT PRN ×4 (03:30→23:00)
[2022-12-10] MEDS: GABAPENTIN 300 MG/6 ML GT SCH ×3 (06:06→21:41)
[2022-12-10] MEDS: OMEPRAZOLE 20 MG CAPSULE.DR GT SCH (06:06)
[2022-12-10] MEDS: RILUZOLE 50 MG TAB GT SCH ×2 (06:06→17:17)
[2022-12-10] MEDS: HYDROGEN PEROXIDE 3% 118 ML BOTTLE TP SCH ×2 (07:13→20:53)
[2022-12-10 07:43] VITALS: TEMP 98.6
[2022-12-10 08:00] VITALS: TEMP 98.6
[2022-12-10] MEDS: OLOPATADINE 0.1% OPHT DROP 5 ML BOTTLE EACHEYE SCH ×2 (08:37→17:14)
[2022-12-10] MEDS: LORATADINE 10 MG TABLET GT SCH (08:37)
[2022-12-10] MEDS: FLUTICASONE PROP NASAL SPRAY 16 GM BOTTLE NS SCH (08:38)
[2022-12-10] MEDS: CHLORHEXIDINE GLUCONATE 15 ML MOUTHWASH MM SCH ×2 (08:38→17:17)
[2022-12-10] MEDS: risperiDONE 0.25 MG TABLET GT SCH ×2 (08:38→17:14)
[2022-12-10] MEDS: FLUOXETINE HCL 40 MG CAPSULE GT SCH ×2 (08:38→12:30)
[2022-12-10] MEDS: DOCUSATE SODIUM 100 MG/10 ML LIQUID UDC GT SCH ×2 (08:38→21:35)
[2022-12-10] MEDS: ENOXAPARIN SODIUM 40 MG/0.4 ML DISP.SYRIN SQ SCH (08:39)
[2022-12-10] MEDS: REMEDY ESSENTIAL ZINC PASTE 113 GM TP SCH ×2 (08:39→21:36)
[2022-12-10] MEDS: DICLOFENAC SODIUM 100 GM GEL..GRAM. TP SCH ×2 (08:39→21:37)
[2022-12-10] MEDS: LORAZEPAM 1 MG TABLET GT PRN ×2 (09:25→17:15)
[2022-12-10 20:00] VITALS: TEMP 98
[2022-12-10] MEDS: hydrOXYzine HCL 25 MG TABLET GT SCH (21:35)
[2022-12-10] MEDS: MELATONIN 3 MG TABLET GT SCH (21:36)
[2022-12-10] MEDS: CLOTRIMAZOLE 1% VAG CREAM 45 GM TUBE VG SCH (21:37)
[2022-12-11] MEDS: IPRATROPIUM BROMIDE 0.5 MG/2.5 ML NEBU NEB SCH ×4 (01:04→19:38)
[2022-12-11] MEDS: OMEPRAZOLE 20 MG CAPSULE.DR GT SCH (05:33)
[2022-12-11] MEDS: GABAPENTIN 300 MG/6 ML GT SCH ×3 (05:33→20:43)
[2022-12-11] MEDS: RILUZOLE 50 MG TAB GT SCH ×2 (05:33→17:26)
[2022-12-11 07:40] VITALS: TEMP 98.1
[2022-12-11] MEDS: HYDROMORPHONE HCL 4 MG TABLET GT PRN ×2 (08:17→20:44)
[2022-12-11] MEDS: OLOPATADINE 0.1% OPHT DROP 5 ML BOTTLE EACHEYE SCH ×2 (08:27→17:26)
[2022-12-11] MEDS: LORATADINE 10 MG TABLET GT SCH (08:28)
[2022-12-11] MEDS: DICLOFENAC SODIUM 100 GM GEL..GRAM. TP SCH ×2 (08:28→20:43)
[2022-12-11] MEDS: FLUOXETINE HCL 40 MG CAPSULE GT SCH ×2 (08:28→13:54)
[2022-12-11] MEDS: risperiDONE 0.25 MG TABLET GT SCH ×2 (08:28→17:27)
[2022-12-11] MEDS: HYDROGEN PEROXIDE 3% 118 ML BOTTLE TP SCH ×2 (08:28→19:38)
[2022-12-11] MEDS: FLUTICASONE PROP NASAL SPRAY 16 GM BOTTLE NS SCH (08:28)
[2022-12-11] MEDS: REMEDY ESSENTIAL ZINC PASTE 113 GM TP SCH ×2 (08:28→20:43)
[2022-12-11] MEDS: DOCUSATE SODIUM 100 MG/10 ML LIQUID UDC GT SCH ×2 (08:28→20:43)
[2022-12-11] MEDS: CHLORHEXIDINE GLUCONATE 15 ML MOUTHWASH MM SCH ×2 (08:28→17:26)
[2022-12-11] MEDS: ENOXAPARIN SODIUM 40 MG/0.4 ML DISP.SYRIN SQ SCH (08:30)
[2022-12-11] MEDS: LORAZEPAM 1 MG TABLET GT PRN ×2 (11:20→18:43)
[2022-12-11] MEDS: CLOTRIMAZOLE 1% VAG CREAM 45 GM TUBE VG SCH (20:43)
[2022-12-11] MEDS: MELATONIN 3 MG TABLET GT SCH (20:43)
[2022-12-11] MEDS: hydrOXYzine HCL 25 MG TABLET GT SCH (20:43)
[2022-12-12] MEDS: IPRATROPIUM BROMIDE 0.5 MG/2.5 ML NEBU NEB SCH ×4 (01:40→19:15)
[2022-12-12] MEDS: RILUZOLE 50 MG TAB GT SCH ×2 (06:00→17:36)
[2022-12-12] MEDS: OMEPRAZOLE 20 MG CAPSULE.DR GT SCH (06:49)
[2022-12-12] MEDS: GABAPENTIN 300 MG/6 ML GT SCH ×3 (06:49→20:17)
[2022-12-12] MEDS: LORAZEPAM 1 MG TABLET GT PRN ×4 (06:53→20:18)
[2022-12-12] MEDS: HYDROGEN PEROXIDE 3% 118 ML BOTTLE TP SCH ×2 (07:10→19:16)
[2022-12-12] MEDS: OLOPATADINE 0.1% OPHT DROP 5 ML BOTTLE EACHEYE SCH ×2 (09:27→17:32)
[2022-12-12] MEDS: LORATADINE 10 MG TABLET GT SCH (09:28)
[2022-12-12] MEDS: FLUOXETINE HCL 40 MG CAPSULE GT SCH ×2 (09:28→12:45)
[2022-12-12] MEDS: DOCUSATE SODIUM 100 MG/10 ML LIQUID UDC GT SCH ×2 (09:28→20:14)
[2022-12-12] MEDS: risperiDONE 0.25 MG TABLET GT SCH ×2 (09:31→17:32)
[2022-12-12] MEDS: CHLORHEXIDINE GLUCONATE 15 ML MOUTHWASH MM SCH ×2 (09:31→17:33)
[2022-12-12] MEDS: FLUTICASONE PROP NASAL SPRAY 16 GM BOTTLE NS SCH (09:31)
[2022-12-12] MEDS: DICLOFENAC SODIUM 100 GM GEL..GRAM. TP SCH ×2 (09:32→20:15)
[2022-12-12] MEDS: ENOXAPARIN SODIUM 40 MG/0.4 ML DISP.SYRIN SQ SCH (09:32)
[2022-12-12] MEDS: REMEDY ESSENTIAL ZINC PASTE 113 GM TP SCH ×2 (09:32→20:15)
[2022-12-12] MEDS: JEVITY 1.2 1000 ML LIQUID GT PRN (13:01)
[2022-12-12] MEDS: hydrOXYzine HCL 25 MG TABLET GT SCH (20:14)
[2022-12-12] MEDS: MELATONIN 3 MG TABLET GT SCH (20:15)
[2022-12-12] MEDS: CLOTRIMAZOLE 1% VAG CREAM 45 GM TUBE VG SCH (20:16)
[2022-12-12 20:33] VITALS: TEMP 98.4
[2022-12-13] MEDS: IPRATROPIUM BROMIDE 0.5 MG/2.5 ML NEBU NEB SCH ×4 (01:09→19:30)
[2022-12-13] MEDS: RILUZOLE 50 MG TAB GT SCH ×2 (05:03→17:26)
[2022-12-13] MEDS: GABAPENTIN 300 MG/6 ML GT SCH ×3 (05:03→20:13)
[2022-12-13] MEDS: OMEPRAZOLE 20 MG CAPSULE.DR GT SCH (05:03)
[2022-12-13 08:07] VITALS: TEMP 98.6
[2022-12-13] MEDS: REMEDY ESSENTIAL ZINC PASTE 113 GM TP SCH ×2 (09:00→20:14)
[2022-12-13] MEDS: HYDROGEN PEROXIDE 3% 118 ML BOTTLE TP SCH ×2 (09:00→21:04)
[2022-12-13] MEDS: LORATADINE 10 MG TABLET GT SCH (09:00)
[2022-12-13] MEDS: DOCUSATE SODIUM 100 MG/10 ML LIQUID UDC GT SCH ×2 (09:00→20:13)
[2022-12-13] MEDS: CHLORHEXIDINE GLUCONATE 15 ML MOUTHWASH MM SCH ×2 (09:00→17:26)
[2022-12-13] MEDS: DICLOFENAC SODIUM 100 GM GEL..GRAM. TP SCH ×2 (09:00→20:14)
[2022-12-13] MEDS: OLOPATADINE 0.1% OPHT DROP 5 ML BOTTLE EACHEYE SCH ×2 (09:00→17:26)
[2022-12-13] MEDS: FLUOXETINE HCL 40 MG CAPSULE GT SCH ×2 (09:00→13:42)
[2022-12-13] MEDS: FLUTICASONE PROP NASAL SPRAY 16 GM BOTTLE NS SCH (09:00)
[2022-12-13] MEDS: ENOXAPARIN SODIUM 40 MG/0.4 ML DISP.SYRIN SQ SCH (09:00)
[2022-12-13] MEDS: risperiDONE 0.25 MG TABLET GT SCH ×2 (09:00→17:26)
[2022-12-13] MEDS: LORAZEPAM 1 MG TABLET GT PRN (10:19)
[2022-12-13] MEDS: HYDROMORPHONE HCL 4 MG TABLET GT PRN (14:55)
[2022-12-13] MEDS: MELATONIN 3 MG TABLET GT SCH (20:13)
[2022-12-13] MEDS: hydrOXYzine HCL 25 MG TABLET GT SCH (20:13)
[2022-12-13] MEDS: CLOTRIMAZOLE 1% VAG CREAM 45 GM TUBE VG SCH (20:14)
[2022-12-13 20:20] VITALS: TEMP 97.7
[2022-12-14] MEDS: IPRATROPIUM BROMIDE 0.5 MG/2.5 ML NEBU NEB SCH ×5 (01:49→19:21)
[2022-12-14] MEDS: OMEPRAZOLE 20 MG CAPSULE.DR GT SCH (05:10)
[2022-12-14] MEDS: GABAPENTIN 300 MG/6 ML GT SCH ×3 (05:10→21:17)
[2022-12-14] MEDS: RILUZOLE 50 MG TAB GT SCH ×2 (05:10→18:02)
[2022-12-14 07:25] VITALS: TEMP 97.9
[2022-12-14] MEDS: HYDROGEN PEROXIDE 3% 118 ML BOTTLE TP SCH ×2 (08:22→19:21)
[2022-12-14] MEDS: OLOPATADINE 0.1% OPHT DROP 5 ML BOTTLE EACHEYE SCH ×2 (09:34→17:00)
[2022-12-14] MEDS: DOCUSATE SODIUM 100 MG/10 ML LIQUID UDC GT SCH ×2 (09:36→21:17)
[2022-12-14] MEDS: FLUOXETINE HCL 40 MG CAPSULE GT SCH ×2 (09:36→13:14)
[2022-12-14] MEDS: LORATADINE 10 MG TABLET GT SCH (09:36)
[2022-12-14] MEDS: DICLOFENAC SODIUM 100 GM GEL..GRAM. TP SCH ×2 (09:37→21:17)
[2022-12-14] MEDS: risperiDONE 0.25 MG TABLET GT SCH ×2 (09:37→17:00)
[2022-12-14] MEDS: CHLORHEXIDINE GLUCONATE 15 ML MOUTHWASH MM SCH ×2 (09:37→17:00)
[2022-12-14] MEDS: ENOXAPARIN SODIUM 40 MG/0.4 ML DISP.SYRIN SQ SCH (09:37)
[2022-12-14] MEDS: REMEDY ESSENTIAL ZINC PASTE 113 GM TP SCH ×2 (09:37→21:18)
[2022-12-14] MEDS: FLUTICASONE PROP NASAL SPRAY 16 GM BOTTLE NS SCH (09:37)
[2022-12-14] MEDS: LORAZEPAM 1 MG TABLET GT PRN (13:35)
[2022-12-14 20:08] VITALS: TEMP 98
[2022-12-14] MEDS: hydrOXYzine HCL 25 MG TABLET GT SCH (21:17)
[2022-12-14] MEDS: MELATONIN 3 MG TABLET GT SCH (21:17)
[2022-12-14] MEDS: HYDROMORPHONE HCL 4 MG TABLET GT PRN (21:18)
[2022-12-14] MEDS: CLOTRIMAZOLE 1% VAG CREAM 45 GM TUBE VG SCH (21:18)
[2022-12-15] MEDS: IPRATROPIUM BROMIDE 0.5 MG/2.5 ML NEBU NEB SCH ×4 (01:06→19:03)
[2022-12-15] MEDS: JEVITY 1.2 1000 ML LIQUID GT PRN (02:49)
[2022-12-15] MEDS: LORAZEPAM 1 MG TABLET GT PRN ×2 (04:15→20:36)
[2022-12-15] MEDS: RILUZOLE 50 MG TAB GT SCH ×2 (05:35→17:42)
[2022-12-15] MEDS: GABAPENTIN 300 MG/6 ML GT SCH ×3 (05:35→20:35)
[2022-12-15] MEDS: OMEPRAZOLE 20 MG CAPSULE.DR GT SCH (05:35)
[2022-12-15 08:00] VITALS: TEMP 97.5
[2022-12-15] MEDS: REMEDY ESSENTIAL ZINC PASTE 113 GM TP SCH ×2 (09:00→20:36)
[2022-12-15] MEDS: LORATADINE 10 MG TABLET GT SCH (09:00)
[2022-12-15] MEDS: DICLOFENAC SODIUM 100 GM GEL..GRAM. TP SCH ×2 (09:00→20:36)
[2022-12-15] MEDS: FLUOXETINE HCL 40 MG CAPSULE GT SCH ×2 (09:00→13:00)
[2022-12-15] MEDS: DOCUSATE SODIUM 100 MG/10 ML LIQUID UDC GT SCH ×2 (09:00→20:35)
[2022-12-15] MEDS: CHLORHEXIDINE GLUCONATE 15 ML MOUTHWASH MM SCH ×2 (09:00→17:35)
[2022-12-15] MEDS: FLUTICASONE PROP NASAL SPRAY 16 GM BOTTLE NS SCH (09:00)
[2022-12-15] MEDS: risperiDONE 0.25 MG TABLET GT SCH ×2 (09:00→17:35)
[2022-12-15] MEDS: OLOPATADINE 0.1% OPHT DROP 5 ML BOTTLE EACHEYE SCH ×2 (09:00→17:35)
[2022-12-15] MEDS: ENOXAPARIN SODIUM 40 MG/0.4 ML DISP.SYRIN SQ SCH (09:00)
[2022-12-15] MEDS: HYDROGEN PEROXIDE 3% 118 ML BOTTLE TP SCH ×2 (09:05→21:01)
[2022-12-15] MEDS: HYDROMORPHONE HCL 4 MG TABLET GT PRN ×2 (10:10→21:09)
[2022-12-15 20:00] VITALS: TEMP 98.8
[2022-12-15] MEDS: hydrOXYzine HCL 25 MG TABLET GT SCH (20:35)
[2022-12-15] MEDS: MELATONIN 3 MG TABLET GT SCH (20:36)
[2022-12-16] MEDS: IPRATROPIUM BROMIDE 0.5 MG/2.5 ML NEBU NEB SCH ×4 (01:05→19:07)
[2022-12-16] MEDS: HYDROMORPHONE HCL 4 MG TABLET GT PRN ×3 (02:50→17:56)
[2022-12-16] MEDS: JEVITY 1.2 1000 ML LIQUID GT PRN (02:55)
[2022-12-16] MEDS: OMEPRAZOLE 20 MG CAPSULE.DR GT SCH (05:47)
[2022-12-16] MEDS: RILUZOLE 50 MG TAB GT SCH ×2 (05:47→17:48)
[2022-12-16] MEDS: GABAPENTIN 300 MG/6 ML GT SCH ×3 (05:47→20:39)
[2022-12-16 08:00] VITALS: TEMP 98.8
[2022-12-16] MEDS: LORATADINE 10 MG TABLET GT SCH (09:07)
[2022-12-16] MEDS: FLUTICASONE PROP NASAL SPRAY 16 GM BOTTLE NS SCH (09:07)
[2022-12-16] MEDS: risperiDONE 0.25 MG TABLET GT SCH ×2 (09:07→17:47)
[2022-12-16] MEDS: DOCUSATE SODIUM 100 MG/10 ML LIQUID UDC GT SCH ×2 (09:07→20:39)
[2022-12-16] MEDS: FLUOXETINE HCL 40 MG CAPSULE GT SCH ×2 (09:07→13:00)
[2022-12-16] MEDS: CHLORHEXIDINE GLUCONATE 15 ML MOUTHWASH MM SCH ×2 (09:07→17:48)
[2022-12-16] MEDS: OLOPATADINE 0.1% OPHT DROP 5 ML BOTTLE EACHEYE SCH ×2 (09:07→17:47)
[2022-12-16] MEDS: REMEDY ESSENTIAL ZINC PASTE 113 GM TP SCH ×2 (09:09→20:40)
[2022-12-16] MEDS: ENOXAPARIN SODIUM 40 MG/0.4 ML DISP.SYRIN SQ SCH (09:09)
[2022-12-16] MEDS: DICLOFENAC SODIUM 100 GM GEL..GRAM. TP SCH ×2 (09:09→20:40)
[2022-12-16] MEDS: LORAZEPAM 1 MG TABLET GT PRN ×2 (09:24→20:30)
[2022-12-16] MEDS: HYDROGEN PEROXIDE 3% 118 ML BOTTLE TP SCH ×2 (09:25→21:00)
[2022-12-16 19:42] VITALS: TEMP 97.6
[2022-12-16] MEDS: hydrOXYzine HCL 25 MG TABLET GT SCH (20:39)
[2022-12-16] MEDS: MELATONIN 3 MG TABLET GT SCH (20:40)
[2022-12-17] MEDS: IPRATROPIUM BROMIDE 0.5 MG/2.5 ML NEBU NEB SCH ×4 (01:04→19:10)
[2022-12-17] MEDS: JEVITY 1.2 1000 ML LIQUID GT PRN (02:34)
[2022-12-17] MEDS: GABAPENTIN 300 MG/6 ML GT SCH ×3 (05:20→21:22)
[2022-12-17] MEDS: OMEPRAZOLE 20 MG CAPSULE.DR GT SCH (05:26)
[2022-12-17] MEDS: RILUZOLE 50 MG TAB GT SCH ×2 (05:27→17:47)
[2022-12-17] MEDS: LORAZEPAM 1 MG TABLET GT PRN ×3 (05:27→21:22)
[2022-12-17 07:23] VITALS: TEMP 97.3
[2022-12-17] MEDS: HYDROGEN PEROXIDE 3% 118 ML BOTTLE TP SCH ×2 (08:28→19:10)
[2022-12-17] MEDS: LORATADINE 10 MG TABLET GT SCH (09:38)
[2022-12-17] MEDS: OLOPATADINE 0.1% OPHT DROP 5 ML BOTTLE EACHEYE SCH ×2 (09:38→17:45)
[2022-12-17] MEDS: DOCUSATE SODIUM 100 MG/10 ML LIQUID UDC GT SCH ×2 (09:39→21:22)
[2022-12-17] MEDS: FLUOXETINE HCL 40 MG CAPSULE GT SCH ×2 (09:40→13:42)
[2022-12-17] MEDS: FLUTICASONE PROP NASAL SPRAY 16 GM BOTTLE NS SCH (09:41)
[2022-12-17] MEDS: CHLORHEXIDINE GLUCONATE 15 ML MOUTHWASH MM SCH ×2 (09:41→17:46)
[2022-12-17] MEDS: risperiDONE 0.25 MG TABLET GT SCH ×2 (09:41→17:46)
[2022-12-17] MEDS: ENOXAPARIN SODIUM 40 MG/0.4 ML DISP.SYRIN SQ SCH (09:42)
[2022-12-17] MEDS: REMEDY ESSENTIAL ZINC PASTE 113 GM TP SCH ×2 (09:43→21:22)
[2022-12-17] MEDS: DICLOFENAC SODIUM 100 GM GEL..GRAM. TP SCH ×2 (09:44→21:22)
[2022-12-17] MEDS: HYDROMORPHONE HCL 4 MG TABLET GT PRN (17:50)
[2022-12-17 20:03] VITALS: TEMP 99.8
[2022-12-17] MEDS: hydrOXYzine HCL 25 MG TABLET GT SCH (21:22)
[2022-12-17] MEDS: MELATONIN 3 MG TABLET GT SCH (21:22)
[2022-12-18] MEDS: IPRATROPIUM BROMIDE 0.5 MG/2.5 ML NEBU NEB SCH ×4 (01:50→19:11)
[2022-12-18] MEDS: LORAZEPAM 1 MG TABLET GT PRN ×3 (05:30→22:00)
[2022-12-18] MEDS: RILUZOLE 50 MG TAB GT SCH ×2 (05:35→17:37)
[2022-12-18] MEDS: GABAPENTIN 300 MG/6 ML GT SCH ×3 (05:35→21:59)
[2022-12-18] MEDS: OMEPRAZOLE 20 MG CAPSULE.DR GT SCH (05:35)
[2022-12-18 08:00] VITALS: TEMP 97.9
[2022-12-18] MEDS: HYDROGEN PEROXIDE 3% 118 ML BOTTLE TP SCH ×2 (08:51→19:12)
[2022-12-18] MEDS: LORATADINE 10 MG TABLET GT SCH (09:52)
[2022-12-18] MEDS: OLOPATADINE 0.1% OPHT DROP 5 ML BOTTLE EACHEYE SCH ×2 (09:52→17:37)
[2022-12-18] MEDS: FLUOXETINE HCL 40 MG CAPSULE GT SCH ×2 (09:53→13:53)
[2022-12-18] MEDS: DOCUSATE SODIUM 100 MG/10 ML LIQUID UDC GT SCH ×2 (09:53→21:59)
[2022-12-18] MEDS: DICLOFENAC SODIUM 100 GM GEL..GRAM. TP SCH ×2 (09:54→21:59)
[2022-12-18] MEDS: FLUTICASONE PROP NASAL SPRAY 16 GM BOTTLE NS SCH (09:54)
[2022-12-18] MEDS: risperiDONE 0.25 MG TABLET GT SCH ×2 (09:54→17:37)
[2022-12-18] MEDS: CHLORHEXIDINE GLUCONATE 15 ML MOUTHWASH MM SCH ×2 (09:54→17:37)
[2022-12-18] MEDS: REMEDY ESSENTIAL ZINC PASTE 113 GM TP SCH ×2 (09:55→21:59)
[2022-12-18] MEDS: ENOXAPARIN SODIUM 40 MG/0.4 ML DISP.SYRIN SQ SCH (09:56)
[2022-12-18] MEDS: ACETAMINOPHEN 650 MG/20 ML UDC- SA PATIENTS-PAIN ONLY GT PRN (10:25)
[2022-12-18] MEDS: HYDROMORPHONE HCL 4 MG TABLET GT PRN ×2 (12:25→17:45)
[2022-12-18 19:55] VITALS: TEMP 98.6
[2022-12-18] MEDS: MELATONIN 3 MG TABLET GT SCH (21:59)
[2022-12-18] MEDS: hydrOXYzine HCL 25 MG TABLET GT SCH (21:59)
[2022-12-18] MEDS: JEVITY 1.2 1000 ML LIQUID GT PRN (22:00)
[2022-12-19] MEDS: IPRATROPIUM BROMIDE 0.5 MG/2.5 ML NEBU NEB SCH ×4 (01:20→18:58)
[2022-12-19] MEDS: OMEPRAZOLE 20 MG CAPSULE.DR GT SCH (05:40)
[2022-12-19] MEDS: GABAPENTIN 300 MG/6 ML GT SCH ×3 (05:40→20:27)
[2022-12-19] MEDS: RILUZOLE 50 MG TAB GT SCH ×2 (05:40→17:10)
[2022-12-19] MEDS: HYDROGEN PEROXIDE 3% 118 ML BOTTLE TP SCH ×2 (07:26→18:58)
[2022-12-19 07:56] VITALS: TEMP 97.8
[2022-12-19] MEDS: OLOPATADINE 0.1% OPHT DROP 5 ML BOTTLE EACHEYE SCH ×2 (09:16→17:10)
[2022-12-19] MEDS: LORATADINE 10 MG TABLET GT SCH (09:20)
[2022-12-19] MEDS: FLUOXETINE HCL 40 MG CAPSULE GT SCH ×2 (09:21→13:19)
[2022-12-19] MEDS: DOCUSATE SODIUM 100 MG/10 ML LIQUID UDC GT SCH ×2 (09:21→20:27)
[2022-12-19] MEDS: risperiDONE 0.25 MG TABLET GT SCH ×2 (09:21→17:10)
[2022-12-19] MEDS: FLUTICASONE PROP NASAL SPRAY 16 GM BOTTLE NS SCH (09:22)
[2022-12-19] MEDS: CHLORHEXIDINE GLUCONATE 15 ML MOUTHWASH MM SCH ×2 (09:22→17:10)
[2022-12-19] MEDS: DICLOFENAC SODIUM 100 GM GEL..GRAM. TP SCH ×2 (09:23→20:27)
[2022-12-19] MEDS: ENOXAPARIN SODIUM 40 MG/0.4 ML DISP.SYRIN SQ SCH (09:23)
[2022-12-19] MEDS: REMEDY ESSENTIAL ZINC PASTE 113 GM TP SCH ×2 (09:23→20:27)
[2022-12-19] MEDS: LORAZEPAM 1 MG TABLET GT PRN ×3 (09:23→20:30)
[2022-12-19] MEDS: HYDROMORPHONE HCL 4 MG TABLET GT PRN ×2 (09:23→15:50)
[2022-12-19 19:43] VITALS: TEMP 99
[2022-12-19] MEDS: MELATONIN 3 MG TABLET GT SCH (20:27)
[2022-12-19] MEDS: hydrOXYzine HCL 25 MG TABLET GT SCH (20:27)
[2022-12-19] MEDS: JEVITY 1.2 1000 ML LIQUID GT PRN (20:28)
[2022-12-20] MEDS: IPRATROPIUM BROMIDE 0.5 MG/2.5 ML NEBU NEB SCH ×4 (01:42→19:21)
[2022-12-20] MEDS: ACETAMINOPHEN 650 MG/20 ML UDC- SA PATIENTS-PAIN ONLY GT PRN (04:52)
[2022-12-20] MEDS: RILUZOLE 50 MG TAB GT SCH ×2 (05:25→17:15)
[2022-12-20] MEDS: GABAPENTIN 300 MG/6 ML GT SCH ×3 (05:25→20:42)
[2022-12-20] MEDS: OMEPRAZOLE 20 MG CAPSULE.DR GT SCH (05:25)
[2022-12-20 07:56] VITALS: TEMP 97.9
[2022-12-20] MEDS: HYDROGEN PEROXIDE 3% 118 ML BOTTLE TP SCH ×2 (08:18→21:52)
[2022-12-20] MEDS: risperiDONE 0.25 MG TABLET GT SCH ×2 (08:48→17:15)
[2022-12-20] MEDS: FLUOXETINE HCL 40 MG CAPSULE GT SCH ×2 (08:48→13:00)
[2022-12-20] MEDS: DOCUSATE SODIUM 100 MG/10 ML LIQUID UDC GT SCH ×2 (08:50→20:35)
[2022-12-20] MEDS: FLUTICASONE PROP NASAL SPRAY 16 GM BOTTLE NS SCH (08:51)
[2022-12-20] MEDS: CHLORHEXIDINE GLUCONATE 15 ML MOUTHWASH MM SCH ×2 (08:51→17:15)
[2022-12-20] MEDS: LORATADINE 10 MG TABLET GT SCH (08:52)
[2022-12-20] MEDS: OLOPATADINE 0.1% OPHT DROP 5 ML BOTTLE EACHEYE SCH ×2 (08:52→17:00)
[2022-12-20] MEDS: ENOXAPARIN SODIUM 40 MG/0.4 ML DISP.SYRIN SQ SCH (08:54)
[2022-12-20] MEDS: REMEDY ESSENTIAL ZINC PASTE 113 GM TP SCH ×2 (09:10→21:05)
[2022-12-20] MEDS: DICLOFENAC SODIUM 100 GM GEL..GRAM. TP SCH ×2 (09:10→20:39)
[2022-12-20] MEDS: HYDROMORPHONE HCL 4 MG TABLET GT PRN (14:58)
[2022-12-20] MEDS: LORAZEPAM 1 MG TABLET GT PRN (20:17)
[2022-12-20 20:20] VITALS: TEMP 98
[2022-12-20] MEDS: JEVITY 1.2 1000 ML LIQUID GT PRN (20:31)
[2022-12-20] MEDS: hydrOXYzine HCL 25 MG TABLET GT SCH (20:34)
[2022-12-20] MEDS: MELATONIN 3 MG TABLET GT SCH (20:39)
[2022-12-21] MEDS: IPRATROPIUM BROMIDE 0.5 MG/2.5 ML NEBU NEB SCH ×4 (01:32→19:04)
[2022-12-21] MEDS: OMEPRAZOLE 20 MG CAPSULE.DR GT SCH (05:30)
[2022-12-21] MEDS: RILUZOLE 50 MG TAB GT SCH ×2 (05:30→17:06)
[2022-12-21] MEDS: GABAPENTIN 300 MG/6 ML GT SCH ×3 (05:30→21:13)
[2022-12-21] MEDS: LORAZEPAM 1 MG TABLET GT PRN ×2 (05:51→20:41)
[2022-12-21 07:53] VITALS: TEMP 97.6
[2022-12-21] MEDS: HYDROGEN PEROXIDE 3% 118 ML BOTTLE TP SCH ×2 (09:42→22:18)
[2022-12-21] MEDS: OLOPATADINE 0.1% OPHT DROP 5 ML BOTTLE EACHEYE SCH ×2 (09:50→17:06)
[2022-12-21] MEDS: DOCUSATE SODIUM 100 MG/10 ML LIQUID UDC GT SCH ×2 (09:51→21:13)
[2022-12-21] MEDS: LORATADINE 10 MG TABLET GT SCH (09:51)
[2022-12-21] MEDS: risperiDONE 0.25 MG TABLET GT SCH ×2 (09:52→17:06)
[2022-12-21] MEDS: FLUOXETINE HCL 40 MG CAPSULE GT SCH ×2 (09:52→12:26)
[2022-12-21] MEDS: CHLORHEXIDINE GLUCONATE 15 ML MOUTHWASH MM SCH ×2 (09:52→17:06)
[2022-12-21] MEDS: FLUTICASONE PROP NASAL SPRAY 16 GM BOTTLE NS SCH (09:53)
[2022-12-21] MEDS: DICLOFENAC SODIUM 100 GM GEL..GRAM. TP SCH ×2 (09:54→21:13)
[2022-12-21] MEDS: REMEDY ESSENTIAL ZINC PASTE 113 GM TP SCH ×2 (09:54→21:13)
[2022-12-21] MEDS: ENOXAPARIN SODIUM 40 MG/0.4 ML DISP.SYRIN SQ SCH (09:57)
[2022-12-21] MEDS: HYDROMORPHONE HCL 4 MG TABLET GT PRN ×2 (12:25→17:05)
[2022-12-21] MEDS: JEVITY 1.2 1000 ML LIQUID GT PRN (17:06)
[2022-12-21 20:00] VITALS: TEMP 98.5
[2022-12-21] MEDS: hydrOXYzine HCL 25 MG TABLET GT SCH (21:13)
[2022-12-21] MEDS: MELATONIN 3 MG TABLET GT SCH (21:13)
[2022-12-22] MEDS: IPRATROPIUM BROMIDE 0.5 MG/2.5 ML NEBU NEB SCH ×4 (01:25→20:18)
[2022-12-22] MEDS: LORAZEPAM 1 MG TABLET GT PRN ×2 (03:21→18:13)
[2022-12-22] MEDS: OMEPRAZOLE 20 MG CAPSULE.DR GT SCH (06:11)
[2022-12-22] MEDS: GABAPENTIN 300 MG/6 ML GT SCH ×3 (06:11→21:37)
[2022-12-22] MEDS: RILUZOLE 50 MG TAB GT SCH ×2 (06:11→18:13)
[2022-12-22 08:00] VITALS: TEMP 97.7
[2022-12-22] MEDS: OLOPATADINE 0.1% OPHT DROP 5 ML BOTTLE EACHEYE SCH ×2 (09:22→17:00)
[2022-12-22] MEDS: LORATADINE 10 MG TABLET GT SCH (09:24)
[2022-12-22] MEDS: DOCUSATE SODIUM 100 MG/10 ML LIQUID UDC GT SCH ×2 (09:25→21:37)
[2022-12-22] MEDS: HYDROGEN PEROXIDE 3% 118 ML BOTTLE TP SCH ×2 (09:25→20:18)
[2022-12-22] MEDS: FLUOXETINE HCL 40 MG CAPSULE GT SCH ×2 (09:26→13:45)
[2022-12-22] MEDS: risperiDONE 0.25 MG TABLET GT SCH ×2 (09:26→17:00)
[2022-12-22] MEDS: FLUTICASONE PROP NASAL SPRAY 16 GM BOTTLE NS SCH (09:27)
[2022-12-22] MEDS: CHLORHEXIDINE GLUCONATE 15 ML MOUTHWASH MM SCH ×2 (09:27→17:00)
[2022-12-22] MEDS: ENOXAPARIN SODIUM 40 MG/0.4 ML DISP.SYRIN SQ SCH (09:29)
[2022-12-22] MEDS: REMEDY ESSENTIAL ZINC PASTE 113 GM TP SCH ×2 (09:30→21:37)
[2022-12-22] MEDS: DICLOFENAC SODIUM 100 GM GEL..GRAM. TP SCH ×2 (09:30→21:37)
[2022-12-22] MEDS: HYDROMORPHONE HCL 4 MG TABLET GT PRN ×3 (10:10→21:40)
[2022-12-22] MEDS: JEVITY 1.2 1000 ML LIQUID GT PRN (13:52)
[2022-12-22 20:00] VITALS: TEMP 98.1
[2022-12-22] MEDS: MELATONIN 3 MG TABLET GT SCH (21:37)
[2022-12-22] MEDS: hydrOXYzine HCL 25 MG TABLET GT SCH (21:37)
[2022-12-23] MEDS: IPRATROPIUM BROMIDE 0.5 MG/2.5 ML NEBU NEB SCH ×4 (01:30→19:10)
[2022-12-23] MEDS: LORAZEPAM 1 MG TABLET GT PRN ×3 (04:48→13:35)
[2022-12-23] MEDS: HYDROMORPHONE HCL 4 MG TABLET GT PRN ×5 (05:10→23:58)
[2022-12-23] MEDS: RILUZOLE 50 MG TAB GT SCH ×2 (06:05→17:42)
[2022-12-23] MEDS: GABAPENTIN 300 MG/6 ML GT SCH ×3 (06:05→21:40)
[2022-12-23] MEDS: OMEPRAZOLE 20 MG CAPSULE.DR GT SCH (06:05)
[2022-12-23] MEDS: OLOPATADINE 0.1% OPHT DROP 5 ML BOTTLE EACHEYE SCH ×2 (08:48→16:37)
[2022-12-23] MEDS: LORATADINE 10 MG TABLET GT SCH (08:49)
[2022-12-23] MEDS: DOCUSATE SODIUM 100 MG/10 ML LIQUID UDC GT SCH ×2 (08:49→21:24)
[2022-12-23] MEDS: risperiDONE 0.25 MG TABLET GT SCH ×2 (08:50→16:37)
[2022-12-23] MEDS: FLUOXETINE HCL 40 MG CAPSULE GT SCH ×2 (08:50→13:34)
[2022-12-23] MEDS: CHLORHEXIDINE GLUCONATE 15 ML MOUTHWASH MM SCH ×2 (08:50→16:38)
[2022-12-23] MEDS: FLUTICASONE PROP NASAL SPRAY 16 GM BOTTLE NS SCH (08:50)
[2022-12-23] MEDS: REMEDY ESSENTIAL ZINC PASTE 113 GM TP SCH ×2 (08:51→21:40)
[2022-12-23] MEDS: DICLOFENAC SODIUM 100 GM GEL..GRAM. TP SCH ×2 (08:51→21:40)
[2022-12-23] MEDS: ENOXAPARIN SODIUM 40 MG/0.4 ML DISP.SYRIN SQ SCH (08:53)
[2022-12-23] MEDS: HYDROGEN PEROXIDE 3% 118 ML BOTTLE TP SCH ×2 (09:00→21:14)
[2022-12-23] MEDS: JEVITY 1.2 1000 ML LIQUID GT PRN (13:37)
[2022-12-23 14:53] VITALS: TEMP 98
[2022-12-23 20:00] VITALS: TEMP 98.4
[2022-12-23] MEDS: hydrOXYzine HCL 25 MG TABLET GT SCH (21:00)
[2022-12-23] MEDS: MELATONIN 3 MG TABLET GT SCH (21:40)
[2022-12-24] MEDS: IPRATROPIUM BROMIDE 0.5 MG/2.5 ML NEBU NEB SCH ×4 (01:03→19:25)
[2022-12-24] MEDS: RILUZOLE 50 MG TAB GT SCH ×2 (06:07→18:14)
[2022-12-24] MEDS: HYDROMORPHONE HCL 4 MG TABLET GT PRN ×2 (06:07→14:58)
[2022-12-24] MEDS: OMEPRAZOLE 20 MG CAPSULE.DR GT SCH (06:07)
[2022-12-24] MEDS: GABAPENTIN 300 MG/6 ML GT SCH ×3 (06:07→21:00)
[2022-12-24] MEDS: LORAZEPAM 1 MG TABLET GT PRN ×3 (06:07→18:24)
[2022-12-24] MEDS: HYDROGEN PEROXIDE 3% 118 ML BOTTLE TP SCH ×2 (07:23→19:25)
[2022-12-24 08:11] VITALS: TEMP 98.6
[2022-12-24] MEDS: CHLORHEXIDINE GLUCONATE 15 ML MOUTHWASH MM SCH ×2 (09:00→17:00)
[2022-12-24] MEDS: FLUTICASONE PROP NASAL SPRAY 16 GM BOTTLE NS SCH (09:00)
[2022-12-24] MEDS: DOCUSATE SODIUM 100 MG/10 ML LIQUID UDC GT SCH ×2 (09:00→21:00)
[2022-12-24] MEDS: DICLOFENAC SODIUM 100 GM GEL..GRAM. TP SCH ×2 (09:00→21:00)
[2022-12-24] MEDS: risperiDONE 0.25 MG TABLET GT SCH ×2 (09:00→17:00)
[2022-12-24] MEDS: REMEDY ESSENTIAL ZINC PASTE 113 GM TP SCH ×2 (09:00→21:00)
[2022-12-24] MEDS: LORATADINE 10 MG TABLET GT SCH (09:00)
[2022-12-24] MEDS: ENOXAPARIN SODIUM 40 MG/0.4 ML DISP.SYRIN SQ SCH (09:00)
[2022-12-24] MEDS: FLUOXETINE HCL 40 MG CAPSULE GT SCH ×2 (09:00→13:00)
[2022-12-24] MEDS: OLOPATADINE 0.1% OPHT DROP 5 ML BOTTLE EACHEYE SCH ×2 (09:00→17:00)
[2022-12-24] MEDS: JEVITY 1.2 1000 ML LIQUID GT PRN (11:00)
[2022-12-24 20:00] VITALS: BP 124/76; TEMP 97.7; O2SAT 99
[2022-12-24] MEDS: hydrOXYzine HCL 25 MG TABLET GT SCH (21:00)
[2022-12-24] MEDS: MELATONIN 3 MG TABLET GT SCH (21:00)
[2022-12-25] MEDS: IPRATROPIUM BROMIDE 0.5 MG/2.5 ML NEBU NEB SCH ×4 (01:13→19:04)
[2022-12-25] MEDS: HYDROMORPHONE HCL 4 MG TABLET GT PRN ×4 (02:47→21:28)
[2022-12-25] MEDS: OMEPRAZOLE 20 MG CAPSULE.DR GT SCH (06:00)
[2022-12-25] MEDS: GABAPENTIN 300 MG/6 ML GT SCH ×3 (06:00→21:21)
[2022-12-25] MEDS: RILUZOLE 50 MG TAB GT SCH ×2 (06:00→18:00)
[2022-12-25 07:56] VITALS: TEMP 97.3
[2022-12-25] MEDS: HYDROGEN PEROXIDE 3% 118 ML BOTTLE TP SCH ×2 (09:00→21:21)
[2022-12-25] MEDS: LORATADINE 10 MG TABLET GT SCH (09:53)
[2022-12-25] MEDS: OLOPATADINE 0.1% OPHT DROP 5 ML BOTTLE EACHEYE SCH ×2 (09:53→17:59)
[2022-12-25] MEDS: FLUOXETINE HCL 40 MG CAPSULE GT SCH ×2 (09:53→13:10)
[2022-12-25] MEDS: CHLORHEXIDINE GLUCONATE 15 ML MOUTHWASH MM SCH ×2 (09:53→17:59)
[2022-12-25] MEDS: DOCUSATE SODIUM 100 MG/10 ML LIQUID UDC GT SCH ×2 (09:53→21:21)
[2022-12-25] MEDS: risperiDONE 0.25 MG TABLET GT SCH ×2 (09:53→17:59)
[2022-12-25] MEDS: FLUTICASONE PROP NASAL SPRAY 16 GM BOTTLE NS SCH (09:54)
[2022-12-25] MEDS: ENOXAPARIN SODIUM 40 MG/0.4 ML DISP.SYRIN SQ SCH (09:54)
[2022-12-25] MEDS: REMEDY ESSENTIAL ZINC PASTE 113 GM TP SCH ×2 (09:55→21:22)
[2022-12-25] MEDS: DICLOFENAC SODIUM 100 GM GEL..GRAM. TP SCH ×2 (09:55→21:22)
[2022-12-25] MEDS: LORAZEPAM 1 MG TABLET GT PRN ×2 (15:53→21:28)
[2022-12-25 20:00] VITALS: TEMP 98.4
[2022-12-25] MEDS: MELATONIN 3 MG TABLET GT SCH (21:21)
[2022-12-25] MEDS: hydrOXYzine HCL 25 MG TABLET GT SCH (21:21)
[2022-12-26] MEDS: IPRATROPIUM BROMIDE 0.5 MG/2.5 ML NEBU NEB SCH ×4 (01:03→19:26)
[2022-12-26] MEDS: OMEPRAZOLE 20 MG CAPSULE.DR GT SCH (05:49)
[2022-12-26] MEDS: GABAPENTIN 300 MG/6 ML GT SCH ×3 (05:49→20:16)
[2022-12-26] MEDS: HYDROMORPHONE HCL 4 MG TABLET GT PRN ×3 (05:49→20:10)
[2022-12-26] MEDS: RILUZOLE 50 MG TAB GT SCH ×2 (05:49→17:27)
[2022-12-26] MEDS: HYDROGEN PEROXIDE 3% 118 ML BOTTLE TP SCH ×2 (07:09→19:26)
[2022-12-26 08:00] VITALS: TEMP 98.2
[2022-12-26] MEDS: LORATADINE 10 MG TABLET GT SCH (09:25)
[2022-12-26] MEDS: OLOPATADINE 0.1% OPHT DROP 5 ML BOTTLE EACHEYE SCH ×2 (09:25→17:26)
[2022-12-26] MEDS: DOCUSATE SODIUM 100 MG/10 ML LIQUID UDC GT SCH ×2 (09:26→20:16)
[2022-12-26] MEDS: CHLORHEXIDINE GLUCONATE 15 ML MOUTHWASH MM SCH ×2 (09:26→17:27)
[2022-12-26] MEDS: REMEDY ESSENTIAL ZINC PASTE 113 GM TP SCH ×2 (09:26→20:17)
[2022-12-26] MEDS: FLUTICASONE PROP NASAL SPRAY 16 GM BOTTLE NS SCH (09:26)
[2022-12-26] MEDS: FLUOXETINE HCL 40 MG CAPSULE GT SCH ×2 (09:26→12:27)
[2022-12-26] MEDS: risperiDONE 0.25 MG TABLET GT SCH ×2 (09:26→17:26)
[2022-12-26] MEDS: DICLOFENAC SODIUM 100 GM GEL..GRAM. TP SCH ×2 (09:26→20:16)
[2022-12-26] MEDS: JEVITY 1.2 1000 ML LIQUID GT PRN (09:28)
[2022-12-26] MEDS: ENOXAPARIN SODIUM 40 MG/0.4 ML DISP.SYRIN SQ SCH (09:28)
[2022-12-26 19:49] VITALS: TEMP 98.4
[2022-12-26] MEDS: LORAZEPAM 1 MG TABLET GT PRN (20:10)
[2022-12-26] MEDS: MELATONIN 3 MG TABLET GT SCH (20:16)
[2022-12-26] MEDS: hydrOXYzine HCL 25 MG TABLET GT SCH (20:16)
[2022-12-27] MEDS: IPRATROPIUM BROMIDE 0.5 MG/2.5 ML NEBU NEB SCH ×4 (00:40→19:11)
[2022-12-27] MEDS: RILUZOLE 50 MG TAB GT SCH ×2 (06:15→18:23)
[2022-12-27] MEDS: GABAPENTIN 300 MG/6 ML GT SCH ×3 (06:15→21:00)
[2022-12-27] MEDS: OMEPRAZOLE 20 MG CAPSULE.DR GT SCH (06:15)
[2022-12-27 07:20] VITALS: TEMP 97.9
[2022-12-27] MEDS: OLOPATADINE 0.1% OPHT DROP 5 ML BOTTLE EACHEYE SCH ×2 (09:06→18:00)
[2022-12-27] MEDS: FLUOXETINE HCL 40 MG CAPSULE GT SCH ×2 (09:06→13:42)
[2022-12-27] MEDS: risperiDONE 0.25 MG TABLET GT SCH ×2 (09:06→18:00)
[2022-12-27] MEDS: LORATADINE 10 MG TABLET GT SCH (09:06)
[2022-12-27] MEDS: CHLORHEXIDINE GLUCONATE 15 ML MOUTHWASH MM SCH ×2 (09:06→18:00)
[2022-12-27] MEDS: DOCUSATE SODIUM 100 MG/10 ML LIQUID UDC GT SCH ×2 (09:06→21:00)
[2022-12-27] MEDS: ENOXAPARIN SODIUM 40 MG/0.4 ML DISP.SYRIN SQ SCH (09:07)
[2022-12-27] MEDS: FLUTICASONE PROP NASAL SPRAY 16 GM BOTTLE NS SCH (09:07)
[2022-12-27 09:08] LABS: BASOPHILS % (AUTO) 0.1 % (0.0-2.0); EOSINOPHILS # (AUTO) 0.1 K/uL (0.0-0.7); EOSINOPHILS % (AUTO) 2.3 % (0.0-7.0); HEMOGLOBIN 10.3 g/dL (10.9-14.3); LYMPHOCYTES # (AUTO) 0.6 K/uL (0.8-4.8); MEAN CORPUSCULAR HEMOGLOBIN 32.4 uug (24.7-32.8); MEAN CORPUSCULAR HGB CONC 33 g/dL (32.3-35.6); MEAN CORPUSCULAR VOLUME 97.8 fL (75.5-95.3); MONOCYTES # (AUTO) 0.5 K/uL (0.1-1.30); MONOCYTES % (AUTO) 9.2 % (0.0-11.0); NEUTROPHILS % (AUTO) 77.4 % (38.5-71.5); PLATELET COUNT (AUTO) 138 K/uL (179-408); RED BLOOD CELL COUNT(AUTO) 3.17 MIL/uL (3.63-4.92); RED CELL DISTRIBUTION WIDTH 14.1 % (12.3-17.7); WHITE BLOOD COUNT (AUTO) 5.2 K/uL (3.8-11.8)
[2022-12-27] MEDS: DICLOFENAC SODIUM 100 GM GEL..GRAM. TP SCH ×2 (09:08→21:01)
[2022-12-27] MEDS: REMEDY ESSENTIAL ZINC PASTE 113 GM TP SCH ×2 (09:08→21:01)
[2022-12-27] MEDS: LORAZEPAM 1 MG TABLET GT PRN ×2 (09:08→14:05)
[2022-12-27 09:14] LABS: DIFFERENTIAL COMMENT 1
[2022-12-27 09:25] LABS: ALANINE AMINOTRANSFERASE 29 U/L (14-59); ALBUMIN 2.8 g/dL (3.4-5.0); ALKALINE PHOSPHATASE 129 U/L (50-136); ASPARTATE AMINOTRANSFERASE 22 U/L (15-37); BILIRUBIN,TOTAL 0.4 mg/dL (0.2-1.0); CALCIUM 9.6 mg/dL (8.5-10.1); CHLORIDE 99 mmol/L (98-107); CREATININE < 0.2 mg/dL (0.6-1.3); GLUCOSE 118 mg/dL (74-106); MAGNESIUM 2.4 mg/dL (1.8-2.4); PHOSPHOROUS 3.7 mg/dL (2.5-4.9); POTASSIUM 3.4 mmol/L (3.5-5.1); SODIUM SERUM 132 mmol/L (136-145); TOTAL PROTEIN, SERUM 6.3 g/dL (6.4-8.2); UREA NITROGEN, BLOOD 11 mg/dL (7-18)
[2022-12-27] MEDS: HYDROGEN PEROXIDE 3% 118 ML BOTTLE TP SCH ×2 (09:43→19:11)
[2022-12-27 09:51] LABS: CARBON DIOXIDE 56 mmol/L (21-32)
[2022-12-27] MEDS: HYDROMORPHONE HCL 4 MG TABLET GT PRN (10:29)
[2022-12-27 11:55] LABS: ABG BASE EXCESS 24.4 mmol/L; ABG HCO3 57.1 mmol/L; ABG PCO2 133.7 mmHg (35.0-45.0); ABG PH 7.248 (7.350-7.450); ABG PO2 166.9 mmHg (75.0-100.0); ABG SITE RIGHT RADIAL; ABG TOTAL HEMOGLOBIN 10.7 G/dL (12.0-16.0); COHb 1.4 % (0.5-1.5); MetHb 0.3 % (0.0-1.5); O2Hb 97.8 % (94.0-97.0); VENT MODE VENT - PCONTROL; VT, ABG 350 mL
[2022-12-27 12:00] VITALS: O2SAT 99
[2022-12-27] MEDS: JEVITY 1.2 1000 ML LIQUID GT PRN (14:05)
[2022-12-27 17:30] VITALS: TEMP 101
[2022-12-27] MEDS ORDERED: POTASSIUM CHLORIDE 10 MEQ TAB.PRT.SR XX ONE (18:15)
[2022-12-27] MEDS: ACETAMINOPHEN 650 MG/20 ML UDC- SA PATIENTS-FEVER ONLY GT PRN (18:30)
[2022-12-27 20:49] VITALS: TEMP 99.4
[2022-12-27] MEDS: hydrOXYzine HCL 25 MG TABLET GT SCH (20:59)
[2022-12-27] MEDS: MELATONIN 3 MG TABLET GT SCH (21:01)
[2022-12-27 21:02] LABS: *BILIRUBIN,URIN NEGATIVE (NEGATIVE); *BLOOD, URINE 2+ (NEGATIVE); *CLARITY,URINE CLEAR (CLEAR); *COLOR,URINE YELLOW (YELLOW); *KETONES,URINE NEGATIVE (NEGATIVE); *PROTEIN,URINE 1+ (NEGATIVE); LEUKOCYTE ESTERASE ,URINE 1+ (NEGATIVE); NITRITE, URINE NEGATIVE (NEGATIVE); PH,URINE >=9.0 (5.0-8.0); UGLUCOSE NEGATIVE (NEGATIVE)
[2022-12-27] MEDS: CEFEPIME HCL 1 G in IV DEXTROSE 5% 50 ML IV SCH (21:59)
[2022-12-27] MEDS ORDERED: VANCOMYCIN IV 1,000 MG in IV DEXTROSE 5% 250 ML IV SCH (23:00)
[2022-12-27] MEDS ORDERED: VANCOMYCIN IV 1,000 MG in IV DEXTROSE 5% 250 ML IV ONE (23:15)
[2022-12-28] MEDS: IPRATROPIUM BROMIDE 0.5 MG/2.5 ML NEBU NEB SCH ×4 (01:13→19:14)
[2022-12-28] MEDS: CEFEPIME HCL 1 G in IV DEXTROSE 5% 50 ML IV SCH ×2 (06:27→14:37)
[2022-12-28 06:40] LABS: BASOPHILS % (AUTO) 0.1 % (0.0-2.0); EOSINOPHILS % (AUTO) 0.2 % (0.0-7.0); HEMATOCRIT 32.6 % (31.2-41.9); HEMOGLOBIN 10.8 g/dL (10.9-14.3); LYMPHOCYTES # (AUTO) 0.9 K/uL (0.8-4.8); LYMPHOCYTES % (AUTO) 11.6 % (20.5-51.5); MEAN CORPUSCULAR HEMOGLOBIN 31.9 uug (24.7-32.8); MEAN CORPUSCULAR HGB CONC 33 g/dL (32.3-35.6); MONOCYTES # (AUTO) 0.5 K/uL (0.1-1.30); MONOCYTES % (AUTO) 6.3 % (0.0-11.0); NEUTROPHILS # (AUTO) 6.2 K/uL (1.8-8.9); NEUTROPHILS % (AUTO) 81.8 % (38.5-71.5); PLATELET COUNT (AUTO) 189 K/uL (179-408); RED CELL DISTRIBUTION WIDTH 14.1 % (12.3-17.7); WHITE BLOOD COUNT (AUTO) 7.6 K/uL (3.8-11.8)
[2022-12-28] MEDS: GABAPENTIN 300 MG/6 ML GT SCH ×3 (06:43→20:57)
[2022-12-28] MEDS: RILUZOLE 50 MG TAB GT SCH ×2 (06:43→18:00)
[2022-12-28] MEDS: OMEPRAZOLE 20 MG CAPSULE.DR GT SCH (06:43)
[2022-12-28] MEDS: ACETAMINOPHEN 650 MG/20 ML UDC- SA PATIENTS-PAIN ONLY GT PRN (06:44)
[2022-12-28] MEDS: JEVITY 1.2 1000 ML LIQUID GT PRN (06:44)
[2022-12-28 07:00] LABS: DIFFERENTIAL COMMENT 1
[2022-12-28 07:17] LABS: ALANINE AMINOTRANSFERASE 28 U/L (14-59); ALBUMIN 2.6 g/dL (3.4-5.0); ALKALINE PHOSPHATASE 136 U/L (50-136); ASPARTATE AMINOTRANSFERASE 21 U/L (15-37); BILIRUBIN,TOTAL 1.2 mg/dL (0.2-1.0); CALCIUM 8.8 mg/dL (8.5-10.1); CARBON DIOXIDE 37 mmol/L (21-32); CHLORIDE 93 mmol/L (98-107); CREATININE 0.4 mg/dL (0.6-1.3); GLUCOSE 158 mg/dL (74-106); SODIUM SERUM 137 mmol/L (136-145); TOTAL PROTEIN, SERUM 6.2 g/dL (6.4-8.2)
[2022-12-28] MEDS: HYDROGEN PEROXIDE 3% 118 ML BOTTLE TP SCH ×2 (07:23→19:15)
[2022-12-28] MEDS ORDERED: VANCOMYCIN IV 1,000 MG in IV DEXTROSE 5% 250 ML IV SCH ×2 (07:26→11:00)
[2022-12-28 08:00] VITALS: TEMP 99.2
[2022-12-28 08:03] LABS: POTASSIUM 2.1 mmol/L (3.5-5.1)
[2022-12-28 08:50] LABS: ABG BASE EXCESS 16.4 mmol/L; ABG HCO3 37.1 mmol/L; ABG PCO2 30.4 mmHg (35.0-45.0); ABG PH 7.704 (7.350-7.450); ABG PO2 133.6 mmHg (75.0-100.0); ABG SITE RIGHT RADIAL; ABG TOTAL HEMOGLOBIN 10.7 G/dL (12.0-16.0); COHb 1.6 % (0.5-1.5); MetHb 0.2 % (0.0-1.5); O2Hb 97.6 % (94.0-97.0); VENT MODE VENT - A/C; VT, ABG 450 mL
[2022-12-28 08:51] LABS: UREA NITROGEN, BLOOD 17 mg/dL (7-18)
[2022-12-28] MEDS: CHLORHEXIDINE GLUCONATE 15 ML MOUTHWASH MM SCH ×2 (09:00→17:59)
[2022-12-28] MEDS: ENOXAPARIN SODIUM 40 MG/0.4 ML DISP.SYRIN SQ SCH (09:00)
[2022-12-28] MEDS: LORATADINE 10 MG TABLET GT SCH (09:00)
[2022-12-28] MEDS: DICLOFENAC SODIUM 100 GM GEL..GRAM. TP SCH ×2 (09:00→20:57)
[2022-12-28] MEDS: risperiDONE 0.25 MG TABLET GT SCH ×2 (09:00→17:59)
[2022-12-28] MEDS: REMEDY ESSENTIAL ZINC PASTE 113 GM TP SCH ×2 (09:00→20:57)
[2022-12-28] MEDS: FLUOXETINE HCL 40 MG CAPSULE GT SCH ×2 (09:00→13:09)
[2022-12-28] MEDS: DOCUSATE SODIUM 100 MG/10 ML LIQUID UDC GT SCH ×2 (09:00→20:57)
[2022-12-28] MEDS: OLOPATADINE 0.1% OPHT DROP 5 ML BOTTLE EACHEYE SCH ×2 (09:00→17:59)
[2022-12-28] MEDS ORDERED: POTASSIUM CHLORIDE 10 MEQ TAB.PRT.SR XX ONE (09:00)
[2022-12-28] MEDS: FLUTICASONE PROP NASAL SPRAY 16 GM BOTTLE NS SCH (09:00)
[2022-12-28] MEDS ORDERED: POTASSIUM CHLORIDE 20 MEQ POWDER PACKET GT SCH (10:00)
[2022-12-28] MEDS: HYDROMORPHONE HCL 4 MG TABLET GT PRN ×2 (10:20→14:22)
[2022-12-28] MEDS ORDERED: VANCOMYCIN IV SCH (11:46)
[2022-12-28] MEDS ORDERED: DEXTROSE 5% IV SCH (11:46)
[2022-12-28] MEDS: LORAZEPAM 1 MG TABLET GT PRN ×2 (12:20→20:00)
[2022-12-28 20:00] VITALS: TEMP 99.2
[2022-12-28] MEDS: MELATONIN 3 MG TABLET GT SCH (20:57)
[2022-12-28] MEDS: hydrOXYzine HCL 25 MG TABLET GT SCH (20:57)
[2022-12-28] MEDS: VANCOMYCIN IV SCH (22:27)
[2022-12-28] MEDS: DEXTROSE 5% IV SCH (22:27)
[2022-12-28] MEDS: CEFEPIME HCL 1 G in IV NORMAL SALINE 50 ML IV SCH (22:27)
[2022-12-29] MEDS: JEVITY 1.2 1000 ML LIQUID GT PRN ×2 (00:08→21:18)
[2022-12-29] MEDS: IPRATROPIUM BROMIDE 0.5 MG/2.5 ML NEBU NEB SCH ×4 (01:14→19:16)
[2022-12-29] MEDS: CEFEPIME HCL 1 G in IV NORMAL SALINE 50 ML IV SCH ×3 (05:14→22:00)
[2022-12-29] MEDS: HYDROMORPHONE HCL 4 MG TABLET GT PRN ×4 (05:20→20:00)
[2022-12-29] MEDS: OMEPRAZOLE 20 MG CAPSULE.DR GT SCH (05:23)
[2022-12-29] MEDS: RILUZOLE 50 MG TAB GT SCH ×2 (05:23→18:12)
[2022-12-29] MEDS: GABAPENTIN 300 MG/6 ML GT SCH ×3 (05:23→20:21)
[2022-12-29 08:00] VITALS: TEMP 98.9
[2022-12-29] MEDS: risperiDONE 0.25 MG TABLET GT SCH ×2 (09:00→17:00)
[2022-12-29] MEDS: CHLORHEXIDINE GLUCONATE 15 ML MOUTHWASH MM SCH ×2 (09:00→17:00)
[2022-12-29] MEDS: REMEDY ESSENTIAL ZINC PASTE 113 GM TP SCH ×2 (09:00→20:22)
[2022-12-29] MEDS: DOCUSATE SODIUM 100 MG/10 ML LIQUID UDC GT SCH ×2 (09:00→20:21)
[2022-12-29] MEDS: FLUTICASONE PROP NASAL SPRAY 16 GM BOTTLE NS SCH (09:00)
[2022-12-29] MEDS: LORATADINE 10 MG TABLET GT SCH (09:00)
[2022-12-29] MEDS: POTASSIUM CHLORIDE 10 MEQ TAB.PRT.SR XX SCH (09:00)
[2022-12-29] MEDS: DICLOFENAC SODIUM 100 GM GEL..GRAM. TP SCH ×2 (09:00→20:22)
[2022-12-29] MEDS: ENOXAPARIN SODIUM 40 MG/0.4 ML DISP.SYRIN SQ SCH (09:00)
[2022-12-29] MEDS: FLUOXETINE HCL 40 MG CAPSULE GT SCH ×2 (09:00→13:00)
[2022-12-29 09:36] LABS: ABG BASE EXCESS 6.7 mmol/L; ABG PCO2 38.1 mmHg (35.0-45.0); ABG PH 7.514 (7.350-7.450); ABG SITE RIGHT RADIAL; ABG TOTAL HEMOGLOBIN 11.7 G/dL (12.0-16.0); COHb 1.1 % (0.5-1.5); MetHb 0.3 % (0.0-1.5); O2Hb 97.8 % (94.0-97.0); VENT MODE VENT - A/C; VT, ABG 450 mL
[2022-12-29] MEDS: HYDROGEN PEROXIDE 3% 118 ML BOTTLE TP SCH ×2 (09:58→19:16)
[2022-12-29] MEDS: OLOPATADINE 0.1% OPHT DROP 5 ML BOTTLE EACHEYE SCH ×2 (09:59→17:18)
[2022-12-29] MEDS: VANCOMYCIN IV SCH ×2 (11:36→23:00)
[2022-12-29] MEDS: DEXTROSE 5% IV SCH ×2 (11:36→23:00)
[2022-12-29] MEDS: ACETAMINOPHEN 650 MG/20 ML UDC- SA PATIENTS-PAIN ONLY GT PRN (18:14)
[2022-12-29 20:00] VITALS: TEMP 98
[2022-12-29] MEDS: hydrOXYzine HCL 25 MG TABLET GT SCH (20:21)
[2022-12-29] MEDS: MELATONIN 3 MG TABLET GT SCH (20:21)
[2022-12-29 23:10] LABS: CREATININE 0.2 mg/dL (0.6-1.3); UREA NITROGEN, BLOOD 11 mg/dL (7-18); VANCOMYCIN,TROUGH 6.9 ug/mL (10.0-20.0)
[2022-12-30] MEDS: IPRATROPIUM BROMIDE 0.5 MG/2.5 ML NEBU NEB SCH ×4 (01:19→19:02)
[2022-12-30] MEDS: HYDROMORPHONE HCL 4 MG TABLET GT PRN ×4 (05:15→22:01)
[2022-12-30] MEDS: OMEPRAZOLE 20 MG CAPSULE.DR GT SCH (05:39)
[2022-12-30] MEDS: RILUZOLE 50 MG TAB GT SCH ×2 (05:39→18:19)
[2022-12-30] MEDS: GABAPENTIN 300 MG/6 ML GT SCH ×3 (05:39→21:07)
[2022-12-30] MEDS: CEFEPIME HCL 1 G in IV NORMAL SALINE 50 ML IV SCH ×3 (05:42→21:52)
[2022-12-30] MEDS: MAGNESIUM HYDROXIDE 30 ML LIQUID UDC GT PRN (05:50)
[2022-12-30 08:00] VITALS: TEMP 100
[2022-12-30] MEDS: ACETAMINOPHEN 650 MG/20 ML UDC- SA PATIENTS-FEVER ONLY GT PRN (08:41)
[2022-12-30] MEDS: REMEDY ESSENTIAL ZINC PASTE 113 GM TP SCH ×2 (08:47→21:07)
[2022-12-30] MEDS: ENOXAPARIN SODIUM 40 MG/0.4 ML DISP.SYRIN SQ SCH (08:48)
[2022-12-30] MEDS: DICLOFENAC SODIUM 100 GM GEL..GRAM. TP SCH ×2 (08:48→21:07)
[2022-12-30] MEDS: FLUTICASONE PROP NASAL SPRAY 16 GM BOTTLE NS SCH (08:48)
[2022-12-30] MEDS: FLUOXETINE HCL 40 MG CAPSULE GT SCH ×2 (08:48→13:44)
[2022-12-30] MEDS: CHLORHEXIDINE GLUCONATE 15 ML MOUTHWASH MM SCH ×2 (08:48→17:00)
[2022-12-30] MEDS: risperiDONE 0.25 MG TABLET GT SCH ×2 (08:48→17:00)
[2022-12-30] MEDS: DOCUSATE SODIUM 100 MG/10 ML LIQUID UDC GT SCH ×2 (08:49→21:05)
[2022-12-30] MEDS: LORATADINE 10 MG TABLET GT SCH (08:49)
[2022-12-30] MEDS: OLOPATADINE 0.1% OPHT DROP 5 ML BOTTLE EACHEYE SCH ×2 (08:49→17:00)
[2022-12-30] MEDS: POTASSIUM CHLORIDE 10 MEQ TAB.PRT.SR XX SCH (09:26)
[2022-12-30] MEDS: HYDROGEN PEROXIDE 3% 118 ML BOTTLE TP SCH ×2 (09:49→21:58)
[2022-12-30] MEDS: VANCOMYCIN IV SCH ×2 (11:00→22:55)
[2022-12-30] MEDS: DEXTROSE 5% IV SCH ×2 (11:00→22:55)
[2022-12-30] MEDS: JEVITY 1.2 1000 ML LIQUID GT PRN (18:21)
[2022-12-30 19:54] VITALS: TEMP 98.5
[2022-12-30] MEDS: hydrOXYzine HCL 25 MG TABLET GT SCH (21:05)
[2022-12-30] MEDS: MELATONIN 3 MG TABLET GT SCH (21:07)
[2022-12-30] MEDS: LORAZEPAM 1 MG TABLET GT PRN (21:14)
[2022-12-31] MEDS: IPRATROPIUM BROMIDE 0.5 MG/2.5 ML NEBU NEB SCH ×4 (01:14→19:11)
[2022-12-31] MEDS: RILUZOLE 50 MG TAB GT SCH ×2 (05:02→17:56)
[2022-12-31] MEDS: OMEPRAZOLE 20 MG CAPSULE.DR GT SCH (05:02)
[2022-12-31] MEDS: GABAPENTIN 300 MG/6 ML GT SCH ×3 (05:02→21:29)
[2022-12-31] MEDS: CEFEPIME HCL 1 G in IV NORMAL SALINE 50 ML IV SCH ×3 (05:19→22:00)
[2022-12-31 08:00] VITALS: TEMP 98.8
[2022-12-31] MEDS: DOCUSATE SODIUM 100 MG/10 ML LIQUID UDC GT SCH ×2 (08:33→21:29)
[2022-12-31] MEDS: LORATADINE 10 MG TABLET GT SCH (08:33)
[2022-12-31] MEDS: OLOPATADINE 0.1% OPHT DROP 5 ML BOTTLE EACHEYE SCH ×2 (08:33→17:55)
[2022-12-31] MEDS: FLUTICASONE PROP NASAL SPRAY 16 GM BOTTLE NS SCH (08:34)
[2022-12-31] MEDS: CHLORHEXIDINE GLUCONATE 15 ML MOUTHWASH MM SCH ×2 (08:34→17:00)
[2022-12-31] MEDS: risperiDONE 0.25 MG TABLET GT SCH ×2 (08:34→17:56)
[2022-12-31] MEDS: FLUOXETINE HCL 40 MG CAPSULE GT SCH ×2 (08:34→12:43)
[2022-12-31] MEDS: REMEDY ESSENTIAL ZINC PASTE 113 GM TP SCH ×2 (08:35→21:29)
[2022-12-31] MEDS: DICLOFENAC SODIUM 100 GM GEL..GRAM. TP SCH ×2 (08:35→21:29)
[2022-12-31] MEDS: POTASSIUM CHLORIDE 10 MEQ TAB.PRT.SR XX SCH (08:37)
[2022-12-31] MEDS: ENOXAPARIN SODIUM 40 MG/0.4 ML DISP.SYRIN SQ SCH (09:00)
[2022-12-31] MEDS: HYDROGEN PEROXIDE 3% 118 ML BOTTLE TP SCH ×2 (09:00→19:11)
[2022-12-31] MEDS: HYDROMORPHONE HCL 4 MG TABLET GT PRN ×4 (09:11→22:04)
[2022-12-31] MEDS: VANCOMYCIN IV SCH ×2 (11:14→23:00)
[2022-12-31] MEDS: DEXTROSE 5% IV SCH ×2 (11:14→23:00)
[2022-12-31] MEDS: JEVITY 1.2 1000 ML LIQUID GT PRN (12:44)
[2022-12-31 20:00] VITALS: TEMP 98.9
[2022-12-31] MEDS: hydrOXYzine HCL 25 MG TABLET GT SCH (21:29)
[2022-12-31] MEDS: MELATONIN 3 MG TABLET GT SCH (21:29)
[2022-12-31] MEDS: LORAZEPAM 1 MG TABLET GT PRN (21:30)
[2023-01-01] MEDS: IPRATROPIUM BROMIDE 0.5 MG/2.5 ML NEBU NEB SCH ×4 (01:57→21:12)
[2023-01-01] MEDS: HYDROMORPHONE HCL 4 MG TABLET GT PRN ×3 (05:40→17:27)
[2023-01-01] MEDS: OMEPRAZOLE 20 MG CAPSULE.DR GT SCH (05:41)
[2023-01-01] MEDS: GABAPENTIN 300 MG/6 ML GT SCH ×3 (05:41→20:29)
[2023-01-01] MEDS: RILUZOLE 50 MG TAB GT SCH ×2 (05:42→17:27)
[2023-01-01] MEDS: CEFEPIME HCL 1 G in IV NORMAL SALINE 50 ML IV SCH ×2 (06:00→13:57)
[2023-01-01] MEDS: HYDROGEN PEROXIDE 3% 118 ML BOTTLE TP SCH ×2 (07:32→21:00)
[2023-01-01 08:00] VITALS: TEMP 98
[2023-01-01] MEDS: OLOPATADINE 0.1% OPHT DROP 5 ML BOTTLE EACHEYE SCH ×2 (09:13→17:26)
[2023-01-01] MEDS: LORATADINE 10 MG TABLET GT SCH (09:13)
[2023-01-01] MEDS: DOCUSATE SODIUM 100 MG/10 ML LIQUID UDC GT SCH ×2 (09:14→20:29)
[2023-01-01] MEDS: risperiDONE 0.25 MG TABLET GT SCH ×2 (09:15→17:26)
[2023-01-01] MEDS: ACETAzolamide 250 MG TABLET GT SCH ×2 (09:15→20:29)
[2023-01-01] MEDS: FLUOXETINE HCL 40 MG CAPSULE GT SCH ×2 (09:15→13:16)
[2023-01-01] MEDS: CHLORHEXIDINE GLUCONATE 15 ML MOUTHWASH MM SCH ×2 (09:15→17:27)
[2023-01-01] MEDS: FLUTICASONE PROP NASAL SPRAY 16 GM BOTTLE NS SCH (09:16)
[2023-01-01] MEDS: ENOXAPARIN SODIUM 40 MG/0.4 ML DISP.SYRIN SQ SCH (09:17)
[2023-01-01] MEDS: DICLOFENAC SODIUM 100 GM GEL..GRAM. TP SCH ×2 (09:17→20:29)
[2023-01-01] MEDS: REMEDY ESSENTIAL ZINC PASTE 113 GM TP SCH ×2 (09:18→20:29)
[2023-01-01] MEDS: POTASSIUM CHLORIDE 10 MEQ TAB.PRT.SR XX SCH (09:19)
[2023-01-01] MEDS: JEVITY 1.2 1000 ML LIQUID GT PRN (09:20)
[2023-01-01] MEDS: VANCOMYCIN IV SCH (11:26)
[2023-01-01] MEDS: DEXTROSE 5% IV SCH (11:26)
[2023-01-01 20:00] VITALS: TEMP 98.1
[2023-01-01] MEDS: MELATONIN 3 MG TABLET GT SCH (20:29)
[2023-01-01] MEDS: hydrOXYzine HCL 25 MG TABLET GT SCH (20:29)
[2023-01-02] MEDS: IPRATROPIUM BROMIDE 0.5 MG/2.5 ML NEBU NEB SCH ×4 (01:31→19:22)
[2023-01-02] MEDS: HYDROMORPHONE HCL 4 MG TABLET GT PRN ×5 (02:01→21:30)
[2023-01-02] MEDS: GABAPENTIN 300 MG/6 ML GT SCH ×3 (05:19→21:00)
[2023-01-02] MEDS: RILUZOLE 50 MG TAB GT SCH ×2 (05:19→17:21)
[2023-01-02] MEDS: OMEPRAZOLE 20 MG CAPSULE.DR GT SCH (05:19)
[2023-01-02] MEDS: JEVITY 1.2 1000 ML LIQUID GT PRN ×2 (05:20→22:33)
[2023-01-02 07:47] VITALS: TEMP 97.4
[2023-01-02] MEDS: LORATADINE 10 MG TABLET GT SCH (08:35)
[2023-01-02] MEDS: DOCUSATE SODIUM 100 MG/10 ML LIQUID UDC GT SCH ×2 (08:35→20:59)
[2023-01-02] MEDS: OLOPATADINE 0.1% OPHT DROP 5 ML BOTTLE EACHEYE SCH ×2 (08:35→17:20)
[2023-01-02] MEDS: risperiDONE 0.25 MG TABLET GT SCH ×2 (08:36→17:21)
[2023-01-02] MEDS: CHLORHEXIDINE GLUCONATE 15 ML MOUTHWASH MM SCH ×2 (08:36→17:21)
[2023-01-02] MEDS: FLUTICASONE PROP NASAL SPRAY 16 GM BOTTLE NS SCH (08:36)
[2023-01-02] MEDS: ACETAzolamide 250 MG TABLET GT SCH ×2 (08:36→20:59)
[2023-01-02] MEDS: FLUOXETINE HCL 40 MG CAPSULE GT SCH ×2 (08:36→13:11)
[2023-01-02] MEDS: ENOXAPARIN SODIUM 40 MG/0.4 ML DISP.SYRIN SQ SCH (08:38)
[2023-01-02] MEDS: REMEDY ESSENTIAL ZINC PASTE 113 GM TP SCH ×2 (08:38→21:01)
[2023-01-02] MEDS: DICLOFENAC SODIUM 100 GM GEL..GRAM. TP SCH ×2 (08:38→21:01)
[2023-01-02] MEDS: HYDROGEN PEROXIDE 3% 118 ML BOTTLE TP SCH ×2 (09:00→20:46)
[2023-01-02] MEDS: POTASSIUM CHLORIDE 40 MEQ/15 ML LIQUID GT SCH (10:59)
[2023-01-02 20:00] VITALS: TEMP 98.8
[2023-01-02] MEDS: hydrOXYzine HCL 25 MG TABLET GT SCH (20:59)
[2023-01-02] MEDS: MELATONIN 3 MG TABLET GT SCH (21:01)
[2023-01-02] MEDS: LORAZEPAM 1 MG TABLET GT PRN (21:30)
[2023-01-03] MEDS: IPRATROPIUM BROMIDE 0.5 MG/2.5 ML NEBU NEB SCH ×4 (00:37→19:08)
[2023-01-03] MEDS: RILUZOLE 50 MG TAB GT SCH ×2 (05:07→17:57)
[2023-01-03] MEDS: OMEPRAZOLE 20 MG CAPSULE.DR GT SCH (05:07)
[2023-01-03] MEDS: GABAPENTIN 300 MG/6 ML GT SCH ×3 (05:07→21:31)
[2023-01-03 08:00] VITALS: TEMP 97.8
[2023-01-03] MEDS: HYDROGEN PEROXIDE 3% 118 ML BOTTLE TP SCH ×2 (08:52→19:08)
[2023-01-03] MEDS: ENOXAPARIN SODIUM 40 MG/0.4 ML DISP.SYRIN SQ SCH (09:00)
[2023-01-03] MEDS: REMEDY ESSENTIAL ZINC PASTE 113 GM TP SCH ×2 (09:00→21:32)
[2023-01-03] MEDS: DOCUSATE SODIUM 100 MG/10 ML LIQUID UDC GT SCH ×2 (09:00→21:31)
[2023-01-03] MEDS: risperiDONE 0.25 MG TABLET GT SCH ×2 (09:00→17:57)
[2023-01-03] MEDS: POTASSIUM CHLORIDE 40 MEQ/15 ML LIQUID GT SCH (09:00)
[2023-01-03] MEDS: ACETAzolamide 250 MG TABLET GT SCH ×2 (09:00→21:31)
[2023-01-03] MEDS: FLUOXETINE HCL 40 MG CAPSULE GT SCH ×2 (09:00→13:59)
[2023-01-03] MEDS: FLUTICASONE PROP NASAL SPRAY 16 GM BOTTLE NS SCH (09:00)
[2023-01-03] MEDS: OLOPATADINE 0.1% OPHT DROP 5 ML BOTTLE EACHEYE SCH ×2 (09:00→17:57)
[2023-01-03] MEDS: DICLOFENAC SODIUM 100 GM GEL..GRAM. TP SCH ×2 (09:00→21:31)
[2023-01-03] MEDS: CHLORHEXIDINE GLUCONATE 15 ML MOUTHWASH MM SCH ×2 (09:00→17:57)
[2023-01-03] MEDS: LORATADINE 10 MG TABLET GT SCH (09:00)
[2023-01-03] MEDS: HYDROMORPHONE HCL 4 MG TABLET GT PRN ×2 (09:59→14:15)
[2023-01-03] MEDS: JEVITY 1.2 1000 ML LIQUID GT PRN (17:57)
[2023-01-03 19:31] VITALS: TEMP 97.9
[2023-01-03] MEDS: LORAZEPAM 1 MG TABLET GT PRN (20:32)
[2023-01-03] MEDS: hydrOXYzine HCL 25 MG TABLET GT SCH (21:31)
[2023-01-03] MEDS: MELATONIN 3 MG TABLET GT SCH (21:31)
[2023-01-04] MEDS: IPRATROPIUM BROMIDE 0.5 MG/2.5 ML NEBU NEB SCH ×4 (00:35→19:23)
[2023-01-04] MEDS: OMEPRAZOLE 20 MG CAPSULE.DR GT SCH (05:45)
[2023-01-04] MEDS: GABAPENTIN 300 MG/6 ML GT SCH ×3 (05:45→20:35)
[2023-01-04] MEDS: RILUZOLE 50 MG TAB GT SCH ×2 (05:45→18:00)
[2023-01-04] MEDS: HYDROMORPHONE HCL 4 MG TABLET GT PRN ×4 (07:37→21:30)
[2023-01-04] MEDS: HYDROGEN PEROXIDE 3% 118 ML BOTTLE TP SCH ×2 (07:37→19:23)
[2023-01-04 07:39] LABS: BASOPHILS # (AUTO) 0.2 K/UL (0.0-0.2); EOSINOPHILS # (AUTO) 0.1 K/uL (0.0-0.7); EOSINOPHILS % (AUTO) 1.8 % (0.0-7.0); HEMATOCRIT 33.7 % (31.2-41.9); LYMPHOCYTES # (AUTO) 0.8 K/uL (0.8-4.8); LYMPHOCYTES % (AUTO) 15.2 % (20.5-51.5); MEAN CORPUSCULAR HEMOGLOBIN 31.9 uug (24.7-32.8); MEAN CORPUSCULAR HGB CONC 33 g/dL (32.3-35.6); MEAN CORPUSCULAR VOLUME 97.4 fL (75.5-95.3); MONOCYTES # (AUTO) 0.3 K/uL (0.1-1.30); MONOCYTES % (AUTO) 5.9 % (0.0-11.0); NEUTROPHILS # (AUTO) 3.8 K/uL (1.8-8.9); NEUTROPHILS % (AUTO) 73.1 % (38.5-71.5); PLATELET COUNT (AUTO) 490 K/uL (179-408); RED BLOOD CELL COUNT(AUTO) 3.46 MIL/uL (3.63-4.92); RED CELL DISTRIBUTION WIDTH 14.1 % (12.3-17.7); WHITE BLOOD COUNT (AUTO) 5.2 K/uL (3.8-11.8)
[2023-01-04 07:45] LABS: DIFFERENTIAL COMMENT 1
[2023-01-04 08:00] VITALS: TEMP 97.6
[2023-01-04 08:01] LABS: CALCIUM 9.2 mg/dL (8.5-10.1); CARBON DIOXIDE 31 mmol/L (21-32); CHLORIDE 103 mmol/L (98-107); CREATININE 0.2 mg/dL (0.6-1.3); GLUCOSE 119 mg/dL (74-106); POTASSIUM 4.1 mmol/L (3.5-5.1); SODIUM SERUM 140 mmol/L (136-145); UREA NITROGEN, BLOOD 12 mg/dL (7-18)
[2023-01-04] MEDS: DOCUSATE SODIUM 100 MG/10 ML LIQUID UDC GT SCH ×2 (08:53→20:30)
[2023-01-04] MEDS: OLOPATADINE 0.1% OPHT DROP 5 ML BOTTLE EACHEYE SCH ×2 (08:53→17:26)
[2023-01-04] MEDS: FLUOXETINE HCL 40 MG CAPSULE GT SCH ×2 (08:56→13:00)
[2023-01-04] MEDS: risperiDONE 0.25 MG TABLET GT SCH ×2 (09:00→17:26)
[2023-01-04] MEDS: CHLORHEXIDINE GLUCONATE 15 ML MOUTHWASH MM SCH ×2 (09:01→17:27)
[2023-01-04] MEDS: POTASSIUM CHLORIDE 40 MEQ/15 ML LIQUID GT SCH (09:05)
[2023-01-04] MEDS: REMEDY ESSENTIAL ZINC PASTE 113 GM TP SCH ×2 (09:07→20:38)
[2023-01-04] MEDS: DICLOFENAC SODIUM 100 GM GEL..GRAM. TP SCH ×2 (09:07→20:38)
[2023-01-04] MEDS: ENOXAPARIN SODIUM 40 MG/0.4 ML DISP.SYRIN SQ SCH (09:11)
[2023-01-04] MEDS: FLUTICASONE PROP NASAL SPRAY 16 GM BOTTLE NS SCH (09:12)
[2023-01-04] MEDS: LORATADINE 10 MG TABLET GT SCH (09:15)
[2023-01-04] MEDS ORDERED: [UNRECOGNIZED DRUG - OTHER] IM ONE (14:00)
[2023-01-04] MEDS ORDERED: COVID IM ONE (14:00)
[2023-01-04 19:41] VITALS: TEMP 98.5
[2023-01-04] MEDS: hydrOXYzine HCL 25 MG TABLET GT SCH (20:30)
[2023-01-04] MEDS: MELATONIN 3 MG TABLET GT SCH (20:37)
[2023-01-04] MEDS: LORAZEPAM 1 MG TABLET GT PRN (20:48)
[2023-01-05] VITALS (7 sets, daily range): TEMP 98.2–99.8
[2023-01-05] MEDS: IPRATROPIUM BROMIDE 0.5 MG/2.5 ML NEBU NEB SCH ×4 (01:50→19:11)
[2023-01-05] MEDS: HYDROMORPHONE HCL 4 MG TABLET GT PRN ×4 (05:19→22:59)
[2023-01-05] MEDS: OMEPRAZOLE 20 MG CAPSULE.DR GT SCH (05:24)
[2023-01-05] MEDS: GABAPENTIN 300 MG/6 ML GT SCH ×3 (05:24→20:42)
[2023-01-05] MEDS: RILUZOLE 50 MG TAB GT SCH ×2 (05:24→18:31)
[2023-01-05] MEDS: HYDROGEN PEROXIDE 3% 118 ML BOTTLE TP SCH ×2 (08:29→20:49)
[2023-01-05] MEDS: OLOPATADINE 0.1% OPHT DROP 5 ML BOTTLE EACHEYE SCH ×2 (08:30→17:00)
[2023-01-05] MEDS: LORATADINE 10 MG TABLET GT SCH (08:30)
[2023-01-05] MEDS: FLUOXETINE HCL 40 MG CAPSULE GT SCH ×2 (08:31→13:42)
[2023-01-05] MEDS: DOCUSATE SODIUM 100 MG/10 ML LIQUID UDC GT SCH ×2 (08:31→20:41)
[2023-01-05] MEDS: POTASSIUM CHLORIDE 40 MEQ/15 ML LIQUID GT SCH (08:31)
[2023-01-05] MEDS: CHLORHEXIDINE GLUCONATE 15 ML MOUTHWASH MM SCH ×2 (08:34→17:00)
[2023-01-05] MEDS: FLUTICASONE PROP NASAL SPRAY 16 GM BOTTLE NS SCH (08:34)
[2023-01-05] MEDS: risperiDONE 0.25 MG TABLET GT SCH ×2 (08:34→17:00)
[2023-01-05] MEDS: DICLOFENAC SODIUM 100 GM GEL..GRAM. TP SCH ×2 (08:35→20:43)
[2023-01-05] MEDS: ENOXAPARIN SODIUM 40 MG/0.4 ML DISP.SYRIN SQ SCH (08:35)
[2023-01-05] MEDS: REMEDY ESSENTIAL ZINC PASTE 113 GM TP SCH ×2 (08:35→20:43)
[2023-01-05] MEDS: hydrOXYzine HCL 25 MG TABLET GT SCH (20:40)
[2023-01-05] MEDS: MELATONIN 3 MG TABLET GT SCH (20:42)
[2023-01-05] MEDS: LORAZEPAM 1 MG TABLET GT PRN (20:45)
[2023-01-06] VITALS: TEMP 98.1
[2023-01-06] MEDS: IPRATROPIUM BROMIDE 0.5 MG/2.5 ML NEBU NEB SCH ×4 (01:04→19:32)
[2023-01-06 04:00] VITALS: TEMP 98.2
[2023-01-06] MEDS: ACETAMINOPHEN 650 MG/20 ML UDC- SA PATIENTS-PAIN ONLY GT PRN (05:05)
[2023-01-06] MEDS: GABAPENTIN 300 MG/6 ML GT SCH ×3 (05:37→21:23)
[2023-01-06] MEDS: RILUZOLE 50 MG TAB GT SCH ×2 (05:37→18:09)
[2023-01-06] MEDS: OMEPRAZOLE 20 MG CAPSULE.DR GT SCH (05:37)
[2023-01-06 07:47] VITALS: TEMP 98
[2023-01-06] MEDS: HYDROGEN PEROXIDE 3% 118 ML BOTTLE TP SCH ×2 (09:00→19:32)
[2023-01-06] MEDS: LORATADINE 10 MG TABLET GT SCH (09:16)
[2023-01-06] MEDS: OLOPATADINE 0.1% OPHT DROP 5 ML BOTTLE EACHEYE SCH ×2 (09:16→17:00)
[2023-01-06] MEDS: DOCUSATE SODIUM 100 MG/10 ML LIQUID UDC GT SCH ×2 (09:16→21:23)
[2023-01-06] MEDS: FLUOXETINE HCL 40 MG CAPSULE GT SCH ×2 (09:17→13:24)
[2023-01-06] MEDS: risperiDONE 0.25 MG TABLET GT SCH ×2 (09:17→17:00)
[2023-01-06] MEDS: POTASSIUM CHLORIDE 40 MEQ/15 ML LIQUID GT SCH (09:17)
[2023-01-06] MEDS: ENOXAPARIN SODIUM 40 MG/0.4 ML DISP.SYRIN SQ SCH (09:19)
[2023-01-06] MEDS: FLUTICASONE PROP NASAL SPRAY 16 GM BOTTLE NS SCH (09:19)
[2023-01-06] MEDS: CHLORHEXIDINE GLUCONATE 15 ML MOUTHWASH MM SCH ×2 (09:19→17:00)
[2023-01-06] MEDS: DICLOFENAC SODIUM 100 GM GEL..GRAM. TP SCH ×2 (09:20→21:24)
[2023-01-06] MEDS: REMEDY ESSENTIAL ZINC PASTE 113 GM TP SCH ×2 (09:20→21:24)
[2023-01-06] MEDS: HYDROMORPHONE HCL 4 MG TABLET GT PRN ×4 (09:21→22:50)
[2023-01-06] MEDS: JEVITY 1.2 1000 ML LIQUID GT PRN (14:59)
[2023-01-06 20:00] VITALS: TEMP 98.1
[2023-01-06] MEDS: hydrOXYzine HCL 25 MG TABLET GT SCH (21:22)
[2023-01-06] MEDS: MELATONIN 3 MG TABLET GT SCH (21:23)
[2023-01-06] MEDS: LORAZEPAM 1 MG TABLET GT PRN (21:25)
[2023-01-07] VITALS: TEMP 98.5
[2023-01-07] MEDS: IPRATROPIUM BROMIDE 0.5 MG/2.5 ML NEBU NEB SCH ×4 (01:28→19:13)
[2023-01-07] MEDS: ACETAMINOPHEN 650 MG/20 ML UDC- SA PATIENTS-PAIN ONLY GT PRN ×3 (04:00→23:19)
[2023-01-07] MEDS: GABAPENTIN 300 MG/6 ML GT SCH ×3 (05:09→21:41)
[2023-01-07] MEDS: OMEPRAZOLE 20 MG CAPSULE.DR GT SCH (05:09)
[2023-01-07] MEDS: RILUZOLE 50 MG TAB GT SCH ×2 (05:11→17:47)
[2023-01-07] MEDS: HYDROGEN PEROXIDE 3% 118 ML BOTTLE TP SCH ×2 (07:32→19:13)
[2023-01-07 07:59] VITALS: TEMP 97.4
[2023-01-07] MEDS: OLOPATADINE 0.1% OPHT DROP 5 ML BOTTLE EACHEYE SCH ×2 (08:16→17:46)
[2023-01-07] MEDS: FLUOXETINE HCL 40 MG CAPSULE GT SCH ×2 (08:17→13:32)
[2023-01-07] MEDS: DOCUSATE SODIUM 100 MG/10 ML LIQUID UDC GT SCH ×2 (08:17→21:35)
[2023-01-07] MEDS: POTASSIUM CHLORIDE 40 MEQ/15 ML LIQUID GT SCH (08:17)
[2023-01-07] MEDS: LORATADINE 10 MG TABLET GT SCH (08:17)
[2023-01-07] MEDS: risperiDONE 0.25 MG TABLET GT SCH ×2 (08:18→17:46)
[2023-01-07] MEDS: CHLORHEXIDINE GLUCONATE 15 ML MOUTHWASH MM SCH ×2 (08:18→17:47)
[2023-01-07] MEDS: FLUTICASONE PROP NASAL SPRAY 16 GM BOTTLE NS SCH (08:18)
[2023-01-07] MEDS: ENOXAPARIN SODIUM 40 MG/0.4 ML DISP.SYRIN SQ SCH (08:19)
[2023-01-07] MEDS: DICLOFENAC SODIUM 100 GM GEL..GRAM. TP SCH ×2 (08:20→21:38)
[2023-01-07] MEDS: REMEDY ESSENTIAL ZINC PASTE 113 GM TP SCH ×2 (08:20→21:34)
[2023-01-07] MEDS: HYDROMORPHONE HCL 4 MG TABLET GT PRN ×3 (08:26→17:48)
[2023-01-07] MEDS: JEVITY 1.2 1000 ML LIQUID GT PRN (08:55)
[2023-01-07 13:00] VITALS: TEMP 97.6
[2023-01-07 18:00] VITALS: TEMP 97.2
[2023-01-07 20:00] VITALS: TEMP 98.5
[2023-01-07] MEDS: hydrOXYzine HCL 25 MG TABLET GT SCH (21:35)
[2023-01-07] MEDS: MELATONIN 3 MG TABLET GT SCH (21:37)
[2023-01-07] MEDS: LORAZEPAM 1 MG TABLET GT PRN (21:41)
[2023-01-08] MEDS: IPRATROPIUM BROMIDE 0.5 MG/2.5 ML NEBU NEB SCH ×4 (01:30→19:05)
[2023-01-08] MEDS: OMEPRAZOLE 20 MG CAPSULE.DR GT SCH (05:07)
[2023-01-08] MEDS: GABAPENTIN 300 MG/6 ML GT SCH ×3 (05:07→21:41)
[2023-01-08] MEDS: RILUZOLE 50 MG TAB GT SCH ×2 (05:07→17:46)
[2023-01-08 07:55] VITALS: TEMP 97.7
[2023-01-08] MEDS: OLOPATADINE 0.1% OPHT DROP 5 ML BOTTLE EACHEYE SCH ×2 (08:32→17:46)
[2023-01-08] MEDS: DOCUSATE SODIUM 100 MG/10 ML LIQUID UDC GT SCH ×2 (08:33→21:37)
[2023-01-08] MEDS: FLUOXETINE HCL 40 MG CAPSULE GT SCH ×2 (08:33→13:00)
[2023-01-08] MEDS: LORATADINE 10 MG TABLET GT SCH (08:33)
[2023-01-08] MEDS: risperiDONE 0.25 MG TABLET GT SCH ×2 (08:35→17:46)
[2023-01-08] MEDS: CHLORHEXIDINE GLUCONATE 15 ML MOUTHWASH MM SCH ×2 (08:35→17:46)
[2023-01-08] MEDS: POTASSIUM CHLORIDE 40 MEQ/15 ML LIQUID GT SCH (08:35)
[2023-01-08] MEDS: ENOXAPARIN SODIUM 40 MG/0.4 ML DISP.SYRIN SQ SCH (08:36)
[2023-01-08] MEDS: FLUTICASONE PROP NASAL SPRAY 16 GM BOTTLE NS SCH (08:36)
[2023-01-08] MEDS: DICLOFENAC SODIUM 100 GM GEL..GRAM. TP SCH ×2 (08:36→21:39)
[2023-01-08] MEDS: REMEDY ESSENTIAL ZINC PASTE 113 GM TP SCH ×2 (08:37→21:39)
[2023-01-08] MEDS: HYDROMORPHONE HCL 4 MG TABLET GT PRN ×3 (08:38→17:51)
[2023-01-08] MEDS: JEVITY 1.2 1000 ML LIQUID GT PRN (08:39)
[2023-01-08] MEDS: HYDROGEN PEROXIDE 3% 118 ML BOTTLE TP SCH ×3 (09:00→20:58)
[2023-01-08 19:58] VITALS: TEMP 98.8
[2023-01-08] MEDS: hydrOXYzine HCL 25 MG TABLET GT SCH (21:38)
[2023-01-08] MEDS: MELATONIN 3 MG TABLET GT SCH (21:41)
[2023-01-09] MEDS: IPRATROPIUM BROMIDE 0.5 MG/2.5 ML NEBU NEB SCH ×4 (01:39→19:19)
[2023-01-09] MEDS: GABAPENTIN 300 MG/6 ML GT SCH ×3 (05:44→20:35)
[2023-01-09] MEDS: OMEPRAZOLE 20 MG CAPSULE.DR GT SCH (05:45)
[2023-01-09] MEDS: RILUZOLE 50 MG TAB GT SCH ×2 (05:46→17:23)
[2023-01-09 08:00] VITALS: TEMP 98.4
[2023-01-09] MEDS: HYDROGEN PEROXIDE 3% 118 ML BOTTLE TP SCH ×2 (08:40→19:19)
[2023-01-09] MEDS: OLOPATADINE 0.1% OPHT DROP 5 ML BOTTLE EACHEYE SCH ×2 (09:56→17:22)
[2023-01-09] MEDS: FLUOXETINE HCL 40 MG CAPSULE GT SCH ×2 (09:56→13:00)
[2023-01-09] MEDS: LORATADINE 10 MG TABLET GT SCH (09:56)
[2023-01-09] MEDS: POTASSIUM CHLORIDE 40 MEQ/15 ML LIQUID GT SCH (09:56)
[2023-01-09] MEDS: DOCUSATE SODIUM 100 MG/10 ML LIQUID UDC GT SCH ×2 (09:56→20:31)
[2023-01-09] MEDS: ENOXAPARIN SODIUM 40 MG/0.4 ML DISP.SYRIN SQ SCH (09:57)
[2023-01-09] MEDS: DICLOFENAC SODIUM 100 GM GEL..GRAM. TP SCH ×2 (09:57→20:31)
[2023-01-09] MEDS: FLUTICASONE PROP NASAL SPRAY 16 GM BOTTLE NS SCH (09:57)
[2023-01-09] MEDS: risperiDONE 0.25 MG TABLET GT SCH ×2 (09:57→17:22)
[2023-01-09] MEDS: REMEDY ESSENTIAL ZINC PASTE 113 GM TP SCH ×2 (09:57→20:31)
[2023-01-09] MEDS: CHLORHEXIDINE GLUCONATE 15 ML MOUTHWASH MM SCH ×2 (09:57→17:23)
[2023-01-09] MEDS: HYDROMORPHONE HCL 4 MG TABLET GT PRN ×3 (09:58→18:01)
[2023-01-09] MEDS: JEVITY 1.2 1000 ML LIQUID GT PRN (10:20)
[2023-01-09 19:52] VITALS: TEMP 98.4
[2023-01-09] MEDS: MELATONIN 3 MG TABLET GT SCH (20:31)
[2023-01-09] MEDS: hydrOXYzine HCL 25 MG TABLET GT SCH (20:31)
[2023-01-09] MEDS: LORAZEPAM 1 MG TABLET GT PRN (20:35)
[2023-01-09] MEDS: ACETAMINOPHEN 650 MG/20 ML UDC- SA PATIENTS-PAIN ONLY GT PRN (22:37)
[2023-01-10] MEDS: IPRATROPIUM BROMIDE 0.5 MG/2.5 ML NEBU NEB SCH ×4 (01:42→19:10)
[2023-01-10] MEDS: OMEPRAZOLE 20 MG CAPSULE.DR GT SCH (06:05)
[2023-01-10] MEDS: JEVITY 1.2 1000 ML LIQUID GT PRN (06:05)
[2023-01-10] MEDS: GABAPENTIN 300 MG/6 ML GT SCH ×3 (06:05→21:04)
[2023-01-10] MEDS: RILUZOLE 50 MG TAB GT SCH ×2 (06:05→17:12)
[2023-01-10 08:00] VITALS: TEMP 98.6
[2023-01-10] MEDS: HYDROGEN PEROXIDE 3% 118 ML BOTTLE TP SCH ×2 (09:00→21:04)
[2023-01-10] MEDS: POTASSIUM CHLORIDE 40 MEQ/15 ML LIQUID GT SCH (09:45)
[2023-01-10] MEDS: FLUOXETINE HCL 40 MG CAPSULE GT SCH ×2 (09:45→13:00)
[2023-01-10] MEDS: DOCUSATE SODIUM 100 MG/10 ML LIQUID UDC GT SCH ×2 (09:45→21:04)
[2023-01-10] MEDS: risperiDONE 0.25 MG TABLET GT SCH ×2 (09:45→17:12)
[2023-01-10] MEDS: OLOPATADINE 0.1% OPHT DROP 5 ML BOTTLE EACHEYE SCH ×2 (09:45→17:12)
[2023-01-10] MEDS: LORATADINE 10 MG TABLET GT SCH (09:45)
[2023-01-10] MEDS: FLUTICASONE PROP NASAL SPRAY 16 GM BOTTLE NS SCH (09:47)
[2023-01-10] MEDS: CHLORHEXIDINE GLUCONATE 15 ML MOUTHWASH MM SCH ×2 (09:47→17:12)
[2023-01-10] MEDS: DICLOFENAC SODIUM 100 GM GEL..GRAM. TP SCH ×2 (09:47→21:04)
[2023-01-10] MEDS: REMEDY ESSENTIAL ZINC PASTE 113 GM TP SCH ×2 (09:47→21:04)
[2023-01-10] MEDS: ENOXAPARIN SODIUM 40 MG/0.4 ML DISP.SYRIN SQ SCH (09:52)
[2023-01-10] MEDS: HYDROMORPHONE HCL 4 MG TABLET GT PRN ×2 (14:32→20:05)
[2023-01-10 20:17] VITALS: TEMP 98.4
[2023-01-10] MEDS: LORAZEPAM 1 MG TABLET GT PRN (20:59)
[2023-01-10] MEDS: hydrOXYzine HCL 25 MG TABLET GT SCH (21:04)
[2023-01-10] MEDS: MELATONIN 3 MG TABLET GT SCH (21:04)
[2023-01-11] MEDS: IPRATROPIUM BROMIDE 0.5 MG/2.5 ML NEBU NEB SCH ×4 (01:53→19:48)
[2023-01-11] MEDS: OMEPRAZOLE 20 MG CAPSULE.DR GT SCH (06:20)
[2023-01-11] MEDS: RILUZOLE 50 MG TAB GT SCH ×2 (06:20→17:35)
[2023-01-11] MEDS: GABAPENTIN 300 MG/6 ML GT SCH ×3 (06:20→20:44)
[2023-01-11 08:00] VITALS: TEMP 97.8
[2023-01-11] MEDS: HYDROGEN PEROXIDE 3% 118 ML BOTTLE TP SCH ×2 (08:57→19:48)
[2023-01-11] MEDS: REMEDY ESSENTIAL ZINC PASTE 113 GM TP SCH ×2 (09:00→20:44)
[2023-01-11] MEDS: LORATADINE 10 MG TABLET GT SCH (09:00)
[2023-01-11] MEDS: POTASSIUM CHLORIDE 40 MEQ/15 ML LIQUID GT SCH (09:00)
[2023-01-11] MEDS: FLUTICASONE PROP NASAL SPRAY 16 GM BOTTLE NS SCH (09:00)
[2023-01-11] MEDS: DOCUSATE SODIUM 100 MG/10 ML LIQUID UDC GT SCH ×2 (09:00→20:44)
[2023-01-11] MEDS: CHLORHEXIDINE GLUCONATE 15 ML MOUTHWASH MM SCH ×2 (09:00→16:37)
[2023-01-11] MEDS: DICLOFENAC SODIUM 100 GM GEL..GRAM. TP SCH ×2 (09:00→20:44)
[2023-01-11] MEDS: risperiDONE 0.25 MG TABLET GT SCH ×2 (09:00→16:37)
[2023-01-11] MEDS: FLUOXETINE HCL 40 MG CAPSULE GT SCH ×2 (09:00→13:43)
[2023-01-11] MEDS: ENOXAPARIN SODIUM 40 MG/0.4 ML DISP.SYRIN SQ SCH (09:00)
[2023-01-11] MEDS: OLOPATADINE 0.1% OPHT DROP 5 ML BOTTLE EACHEYE SCH ×2 (09:58→16:36)
[2023-01-11] MEDS: HYDROMORPHONE HCL 4 MG TABLET GT PRN ×2 (11:08→17:36)
[2023-01-11] MEDS: ACETAMINOPHEN 650 MG/20 ML UDC- SA PATIENTS-PAIN ONLY GT PRN (15:12)
[2023-01-11 20:00] VITALS: TEMP 97.9
[2023-01-11] MEDS: LORAZEPAM 1 MG TABLET GT PRN (20:23)
[2023-01-11] MEDS: MELATONIN 3 MG TABLET GT SCH (20:44)
[2023-01-11] MEDS: hydrOXYzine HCL 25 MG TABLET GT SCH (20:44)
[2023-01-12] MEDS: IPRATROPIUM BROMIDE 0.5 MG/2.5 ML NEBU NEB SCH ×4 (01:30→19:17)
[2023-01-12] MEDS: GABAPENTIN 300 MG/6 ML GT SCH ×3 (06:00→20:59)
[2023-01-12] MEDS: RILUZOLE 50 MG TAB GT SCH ×2 (06:00→18:05)
[2023-01-12] MEDS: OMEPRAZOLE 20 MG CAPSULE.DR GT SCH (06:00)
[2023-01-12] MEDS: HYDROGEN PEROXIDE 3% 118 ML BOTTLE TP SCH ×2 (07:22→19:17)
[2023-01-12 07:40] VITALS: TEMP 98.8
[2023-01-12] MEDS: LORATADINE 10 MG TABLET GT SCH (09:08)
[2023-01-12] MEDS: OLOPATADINE 0.1% OPHT DROP 5 ML BOTTLE EACHEYE SCH ×2 (09:08→17:02)
[2023-01-12] MEDS: DOCUSATE SODIUM 100 MG/10 ML LIQUID UDC GT SCH ×2 (09:08→20:59)
[2023-01-12] MEDS: FLUOXETINE HCL 40 MG CAPSULE GT SCH ×2 (09:09→12:36)
[2023-01-12] MEDS: CHLORHEXIDINE GLUCONATE 15 ML MOUTHWASH MM SCH ×2 (09:16→17:02)
[2023-01-12] MEDS: risperiDONE 0.25 MG TABLET GT SCH ×2 (09:16→17:02)
[2023-01-12] MEDS: POTASSIUM CHLORIDE 40 MEQ/15 ML LIQUID GT SCH (09:16)
[2023-01-12] MEDS: FLUTICASONE PROP NASAL SPRAY 16 GM BOTTLE NS SCH (09:17)
[2023-01-12] MEDS: ENOXAPARIN SODIUM 40 MG/0.4 ML DISP.SYRIN SQ SCH (09:18)
[2023-01-12] MEDS: DICLOFENAC SODIUM 100 GM GEL..GRAM. TP SCH ×2 (09:18→21:00)
[2023-01-12] MEDS: REMEDY ESSENTIAL ZINC PASTE 113 GM TP SCH (09:19)
[2023-01-12] MEDS: HYDROMORPHONE HCL 4 MG TABLET GT PRN ×2 (09:50→18:07)
[2023-01-12] MEDS: ACETAMINOPHEN 650 MG/20 ML UDC- SA PATIENTS-PAIN ONLY GT PRN (14:30)
[2023-01-12] MEDS ORDERED: ZINC OXIDE TOP PRN (15:15)
[2023-01-12 19:38] VITALS: TEMP 98.1
[2023-01-12] MEDS: hydrOXYzine HCL 25 MG TABLET GT SCH (20:59)
[2023-01-12] MEDS: MELATONIN 3 MG TABLET GT SCH (20:59)
[2023-01-12] MEDS: LORAZEPAM 1 MG TABLET GT PRN (21:00)
[2023-01-12] MEDS: ZINC OXIDE TOP SCH (21:00)
[2023-01-13] MEDS: IPRATROPIUM BROMIDE 0.5 MG/2.5 ML NEBU NEB SCH ×4 (01:03→19:08)
[2023-01-13] MEDS: GABAPENTIN 300 MG/6 ML GT SCH ×3 (06:11→21:18)
[2023-01-13] MEDS: OMEPRAZOLE 20 MG CAPSULE.DR GT SCH (06:11)
[2023-01-13] MEDS: RILUZOLE 50 MG TAB GT SCH ×2 (06:12→17:40)
[2023-01-13] MEDS: JEVITY 1.2 1000 ML LIQUID GT PRN (06:12)
[2023-01-13] MEDS: HYDROGEN PEROXIDE 3% 118 ML BOTTLE TP SCH ×2 (09:00→21:23)
[2023-01-13] MEDS: DOCUSATE SODIUM 100 MG/10 ML LIQUID UDC GT SCH ×2 (09:00→21:22)
[2023-01-13] MEDS: OLOPATADINE 0.1% OPHT DROP 5 ML BOTTLE EACHEYE SCH ×2 (09:11→17:40)
[2023-01-13] MEDS: LORATADINE 10 MG TABLET GT SCH (09:12)
[2023-01-13] MEDS: FLUOXETINE HCL 40 MG CAPSULE GT SCH ×2 (09:14→13:46)
[2023-01-13] MEDS: POTASSIUM CHLORIDE 40 MEQ/15 ML LIQUID GT SCH (09:32)
[2023-01-13] MEDS: CHLORHEXIDINE GLUCONATE 15 ML MOUTHWASH MM SCH ×2 (09:32→17:40)
[2023-01-13] MEDS: risperiDONE 0.25 MG TABLET GT SCH ×2 (09:32→17:40)
[2023-01-13] MEDS: FLUTICASONE PROP NASAL SPRAY 16 GM BOTTLE NS SCH (09:33)
[2023-01-13] MEDS: ENOXAPARIN SODIUM 40 MG/0.4 ML DISP.SYRIN SQ SCH (09:34)
[2023-01-13] MEDS: DICLOFENAC SODIUM 100 GM GEL..GRAM. TP SCH ×2 (09:35→21:21)
[2023-01-13] MEDS: ZINC OXIDE TOP SCH ×2 (09:35→21:21)
[2023-01-13] MEDS: HYDROMORPHONE HCL 4 MG TABLET GT PRN ×2 (09:41→17:48)
[2023-01-13] MEDS: ACETAMINOPHEN 650 MG/20 ML UDC- SA PATIENTS-PAIN ONLY GT PRN (13:57)
[2023-01-13 20:00] VITALS: TEMP 98.8
[2023-01-13] MEDS: hydrOXYzine HCL 25 MG TABLET GT SCH (21:18)
[2023-01-13] MEDS: LORAZEPAM 1 MG TABLET GT PRN (21:21)
[2023-01-13] MEDS: MELATONIN 3 MG TABLET GT SCH (21:21)
[2023-01-14] MEDS: IPRATROPIUM BROMIDE 0.5 MG/2.5 ML NEBU NEB SCH ×4 (01:04→19:50)
[2023-01-14] MEDS: OMEPRAZOLE 20 MG CAPSULE.DR GT SCH (05:53)
[2023-01-14] MEDS: RILUZOLE 50 MG TAB GT SCH ×2 (05:53→17:43)
[2023-01-14] MEDS: GABAPENTIN 300 MG/6 ML GT SCH ×3 (05:53→20:02)
[2023-01-14] MEDS: JEVITY 1.2 1000 ML LIQUID GT PRN (05:54)
[2023-01-14 07:33] VITALS: TEMP 97.7
[2023-01-14] MEDS: HYDROGEN PEROXIDE 3% 118 ML BOTTLE TP SCH ×2 (09:07→21:25)
[2023-01-14] MEDS: OLOPATADINE 0.1% OPHT DROP 5 ML BOTTLE EACHEYE SCH ×2 (09:33→17:18)
[2023-01-14] MEDS: LORATADINE 10 MG TABLET GT SCH (09:33)
[2023-01-14] MEDS: FLUOXETINE HCL 40 MG CAPSULE GT SCH ×2 (09:34→12:19)
[2023-01-14] MEDS: DOCUSATE SODIUM 100 MG/10 ML LIQUID UDC GT SCH ×2 (09:34→20:03)
[2023-01-14] MEDS: POTASSIUM CHLORIDE 40 MEQ/15 ML LIQUID GT SCH (09:35)
[2023-01-14] MEDS: risperiDONE 0.25 MG TABLET GT SCH ×2 (09:40→17:18)
[2023-01-14] MEDS: ZINC OXIDE TOP SCH ×2 (09:41→20:03)
[2023-01-14] MEDS: CHLORHEXIDINE GLUCONATE 15 ML MOUTHWASH MM SCH ×2 (09:41→17:18)
[2023-01-14] MEDS: DICLOFENAC SODIUM 100 GM GEL..GRAM. TP SCH ×2 (09:41→20:03)
[2023-01-14] MEDS: FLUTICASONE PROP NASAL SPRAY 16 GM BOTTLE NS SCH (09:41)
[2023-01-14] MEDS: ENOXAPARIN SODIUM 40 MG/0.4 ML DISP.SYRIN SQ SCH (09:43)
[2023-01-14] MEDS: ACETAMINOPHEN 650 MG/20 ML UDC- SA PATIENTS-PAIN ONLY GT PRN ×2 (12:21→19:39)
[2023-01-14 19:47] VITALS: TEMP 99.1
[2023-01-14] MEDS: hydrOXYzine HCL 25 MG TABLET GT SCH (20:02)
[2023-01-14] MEDS: MELATONIN 3 MG TABLET GT SCH (20:03)
[2023-01-14] MEDS: LORAZEPAM 1 MG TABLET GT PRN (20:52)
[2023-01-14] MEDS ORDERED: HYDROCODONE/APAP 5-325MG TABLET ONE (22:07)
[2023-01-14] MEDS: HYDROCODONE/APAP 5-325MG TABLET PO PRN (22:13)
[2023-01-15] MEDS: IPRATROPIUM BROMIDE 0.5 MG/2.5 ML NEBU NEB SCH ×4 (01:50→19:09)
[2023-01-15] MEDS: OMEPRAZOLE 20 MG CAPSULE.DR GT SCH (06:15)
[2023-01-15] MEDS: RILUZOLE 50 MG TAB GT SCH ×2 (06:15→17:38)
[2023-01-15] MEDS: GABAPENTIN 300 MG/6 ML GT SCH ×3 (06:15→20:51)
[2023-01-15] MEDS: JEVITY 1.2 1000 ML LIQUID GT PRN (07:18)
[2023-01-15] MEDS: HYDROGEN PEROXIDE 3% 118 ML BOTTLE TP SCH ×2 (07:45→19:09)
[2023-01-15 08:00] VITALS: BP 118/78; TEMP 98.3; O2SAT 100
[2023-01-15] MEDS: DOCUSATE SODIUM 100 MG/10 ML LIQUID UDC GT SCH ×2 (09:55→20:21)
[2023-01-15] MEDS: FLUOXETINE HCL 40 MG CAPSULE GT SCH ×2 (09:55→13:15)
[2023-01-15] MEDS: POTASSIUM CHLORIDE 40 MEQ/15 ML LIQUID GT SCH (09:55)
[2023-01-15] MEDS: LORATADINE 10 MG TABLET GT SCH (09:55)
[2023-01-15] MEDS: OLOPATADINE 0.1% OPHT DROP 5 ML BOTTLE EACHEYE SCH ×2 (09:55→17:37)
[2023-01-15] MEDS: CHLORHEXIDINE GLUCONATE 15 ML MOUTHWASH MM SCH ×2 (09:55→17:38)
[2023-01-15] MEDS: FLUTICASONE PROP NASAL SPRAY 16 GM BOTTLE NS SCH (09:55)
[2023-01-15] MEDS: risperiDONE 0.25 MG TABLET GT SCH ×2 (09:55→17:37)
[2023-01-15] MEDS: DICLOFENAC SODIUM 100 GM GEL..GRAM. TP SCH ×2 (09:56→20:21)
[2023-01-15] MEDS: ZINC OXIDE TOP SCH ×2 (09:56→20:21)
[2023-01-15] MEDS: ENOXAPARIN SODIUM 40 MG/0.4 ML DISP.SYRIN SQ SCH (09:57)
[2023-01-15] MEDS: HYDROCODONE/APAP 5-325MG TABLET PO PRN (13:15)
[2023-01-15] MEDS: HYDROMORPHONE HCL 4 MG TABLET GT PRN (17:41)
[2023-01-15 20:00] VITALS: TEMP 99
[2023-01-15] MEDS: MELATONIN 3 MG TABLET GT SCH (20:21)
[2023-01-15] MEDS: hydrOXYzine HCL 25 MG TABLET GT SCH (20:51)
[2023-01-15] MEDS: LORAZEPAM 1 MG TABLET GT PRN (21:44)
[2023-01-16] MEDS: IPRATROPIUM BROMIDE 0.5 MG/2.5 ML NEBU NEB SCH ×4 (00:50→19:30)
[2023-01-16] MEDS: OMEPRAZOLE 20 MG CAPSULE.DR GT SCH (05:45)
[2023-01-16] MEDS: RILUZOLE 50 MG TAB GT SCH ×2 (05:45→17:33)
[2023-01-16] MEDS: GABAPENTIN 300 MG/6 ML GT SCH ×3 (05:45→21:17)
[2023-01-16 08:00] VITALS: TEMP 98.6
[2023-01-16] MEDS: OLOPATADINE 0.1% OPHT DROP 5 ML BOTTLE EACHEYE SCH ×2 (09:00→17:32)
[2023-01-16] MEDS: HYDROGEN PEROXIDE 3% 118 ML BOTTLE TP SCH ×2 (09:04→20:43)
[2023-01-16] MEDS: LORATADINE 10 MG TABLET GT SCH (09:45)
[2023-01-16] MEDS: DOCUSATE SODIUM 100 MG/10 ML LIQUID UDC GT SCH ×2 (09:46→21:17)
[2023-01-16] MEDS: risperiDONE 0.25 MG TABLET GT SCH ×2 (09:47→17:32)
[2023-01-16] MEDS: FLUOXETINE HCL 40 MG CAPSULE GT SCH ×2 (09:47→12:22)
[2023-01-16] MEDS: POTASSIUM CHLORIDE 40 MEQ/15 ML LIQUID GT SCH (09:47)
[2023-01-16] MEDS: CHLORHEXIDINE GLUCONATE 15 ML MOUTHWASH MM SCH ×2 (09:50→17:32)
[2023-01-16] MEDS: DICLOFENAC SODIUM 100 GM GEL..GRAM. TP SCH ×2 (09:50→21:16)
[2023-01-16] MEDS: FLUTICASONE PROP NASAL SPRAY 16 GM BOTTLE NS SCH (09:50)
[2023-01-16] MEDS: ZINC OXIDE TOP SCH ×2 (09:50→21:16)
[2023-01-16] MEDS: ENOXAPARIN SODIUM 40 MG/0.4 ML DISP.SYRIN SQ SCH (09:53)
[2023-01-16] MEDS: HYDROMORPHONE HCL 4 MG TABLET GT PRN ×2 (13:23→17:34)
[2023-01-16 19:51] VITALS: TEMP 98.5
[2023-01-16] MEDS: hydrOXYzine HCL 25 MG TABLET GT SCH (21:16)
[2023-01-16] MEDS: LORAZEPAM 1 MG TABLET GT PRN (21:17)
[2023-01-16] MEDS: MELATONIN 3 MG TABLET GT SCH (21:17)
[2023-01-17] MEDS: IPRATROPIUM BROMIDE 0.5 MG/2.5 ML NEBU NEB SCH ×4 (01:51→19:03)
[2023-01-17] MEDS: GABAPENTIN 300 MG/6 ML GT SCH ×3 (05:31→20:56)
[2023-01-17] MEDS: RILUZOLE 50 MG TAB GT SCH ×2 (05:31→17:43)
[2023-01-17] MEDS: OMEPRAZOLE 20 MG CAPSULE.DR GT SCH (05:31)
[2023-01-17] MEDS: JEVITY 1.2 1000 ML LIQUID GT PRN (07:06)
[2023-01-17 07:17] LABS: BASOPHILS % (AUTO) 0.9 % (0.0-2.0); EOSINOPHILS # (AUTO) 0.2 K/uL (0.0-0.7); EOSINOPHILS % (AUTO) 3.4 % (0.0-7.0); HEMATOCRIT 34.1 % (31.2-41.9); HEMOGLOBIN 11.5 g/dL (10.9-14.3); LYMPHOCYTES # (AUTO) 1.3 K/uL (0.8-4.8); LYMPHOCYTES % (AUTO) 26.5 % (20.5-51.5); MEAN CORPUSCULAR HEMOGLOBIN 32.1 uug (24.7-32.8); MEAN CORPUSCULAR HGB CONC 34 g/dL (32.3-35.6); MONOCYTES # (AUTO) 0.5 K/uL (0.1-1.30); MONOCYTES % (AUTO) 11.2 % (0.0-11.0); NEUTROPHILS # (AUTO) 2.8 K/uL (1.8-8.9); PLATELET COUNT (AUTO) 243 K/uL (179-408); RED BLOOD CELL COUNT(AUTO) 3.59 MIL/uL (3.63-4.92); RED CELL DISTRIBUTION WIDTH 13.8 % (12.3-17.7); WHITE BLOOD COUNT (AUTO) 4.9 K/uL (3.8-11.8)
[2023-01-17 07:24] LABS: DIFFERENTIAL COMMENT 1
[2023-01-17 07:28] LABS: CALCIUM 9.2 mg/dL (8.5-10.1); CARBON DIOXIDE 33 mmol/L (21-32); CHLORIDE 97 mmol/L (98-107); CREATININE 0.2 mg/dL (0.6-1.3); GLUCOSE 99 mg/dL (74-106); MAGNESIUM 2.1 mg/dL (1.8-2.4); PHOSPHOROUS 5.2 mg/dL (2.5-4.9); POTASSIUM 4.3 mmol/L (3.5-5.1); SODIUM SERUM 136 mmol/L (136-145); UREA NITROGEN, BLOOD 14 mg/dL (7-18)
[2023-01-17 08:00] VITALS: TEMP 99.5
[2023-01-17] MEDS: HYDROGEN PEROXIDE 3% 118 ML BOTTLE TP SCH ×2 (09:15→20:56)
[2023-01-17] MEDS: LORATADINE 10 MG TABLET GT SCH (09:43)
[2023-01-17] MEDS: OLOPATADINE 0.1% OPHT DROP 5 ML BOTTLE EACHEYE SCH ×2 (09:43→17:39)
[2023-01-17] MEDS: FLUOXETINE HCL 40 MG CAPSULE GT SCH ×2 (09:44→12:10)
[2023-01-17] MEDS: DOCUSATE SODIUM 100 MG/10 ML LIQUID UDC GT SCH ×2 (09:44→20:56)
[2023-01-17] MEDS: risperiDONE 0.25 MG TABLET GT SCH ×2 (09:45→17:39)
[2023-01-17] MEDS: POTASSIUM CHLORIDE 40 MEQ/15 ML LIQUID GT SCH (09:45)
[2023-01-17] MEDS: CHLORHEXIDINE GLUCONATE 15 ML MOUTHWASH MM SCH ×2 (09:47→17:39)
[2023-01-17] MEDS: FLUTICASONE PROP NASAL SPRAY 16 GM BOTTLE NS SCH (09:48)
[2023-01-17] MEDS: ZINC OXIDE TOP SCH ×2 (09:48→20:56)
[2023-01-17] MEDS: DICLOFENAC SODIUM 100 GM GEL..GRAM. TP SCH ×2 (09:48→20:56)
[2023-01-17] MEDS: ENOXAPARIN SODIUM 40 MG/0.4 ML DISP.SYRIN SQ SCH (09:50)
[2023-01-17] MEDS: HYDROMORPHONE HCL 4 MG TABLET GT PRN ×2 (12:09→17:43)
[2023-01-17 20:02] VITALS: TEMP 98
[2023-01-17] MEDS: hydrOXYzine HCL 25 MG TABLET GT SCH (20:56)
[2023-01-17] MEDS: MELATONIN 3 MG TABLET GT SCH (20:56)
[2023-01-17] MEDS: ACETAMINOPHEN 650 MG/20 ML UDC- SA PATIENTS-PAIN ONLY GT PRN (22:15)
[2023-01-18] MEDS: IPRATROPIUM BROMIDE 0.5 MG/2.5 ML NEBU NEB SCH ×4 (01:03→19:05)
[2023-01-18] MEDS: GABAPENTIN 300 MG/6 ML GT SCH ×3 (05:21→21:40)
[2023-01-18] MEDS: RILUZOLE 50 MG TAB GT SCH ×2 (05:21→17:18)
[2023-01-18] MEDS: OMEPRAZOLE 20 MG CAPSULE.DR GT SCH (05:21)
[2023-01-18 08:00] VITALS: TEMP 98.3
[2023-01-18] MEDS: HYDROGEN PEROXIDE 3% 118 ML BOTTLE TP SCH ×2 (08:44→19:05)
[2023-01-18] MEDS: FLUOXETINE HCL 40 MG CAPSULE GT SCH ×2 (09:53→13:57)
[2023-01-18] MEDS: risperiDONE 0.25 MG TABLET GT SCH ×2 (09:53→17:15)
[2023-01-18] MEDS: DOCUSATE SODIUM 100 MG/10 ML LIQUID UDC GT SCH ×2 (09:53→21:40)
[2023-01-18] MEDS: OLOPATADINE 0.1% OPHT DROP 5 ML BOTTLE EACHEYE SCH ×2 (09:53→17:15)
[2023-01-18] MEDS: LORATADINE 10 MG TABLET GT SCH (09:53)
[2023-01-18] MEDS: POTASSIUM CHLORIDE 40 MEQ/15 ML LIQUID GT SCH (09:53)
[2023-01-18] MEDS: ZINC OXIDE TOP SCH ×2 (09:54→21:41)
[2023-01-18] MEDS: CHLORHEXIDINE GLUCONATE 15 ML MOUTHWASH MM SCH ×2 (09:54→17:15)
[2023-01-18] MEDS: FLUTICASONE PROP NASAL SPRAY 16 GM BOTTLE NS SCH (09:54)
[2023-01-18] MEDS: DICLOFENAC SODIUM 100 GM GEL..GRAM. TP SCH ×2 (09:54→21:42)
[2023-01-18] MEDS: ENOXAPARIN SODIUM 40 MG/0.4 ML DISP.SYRIN SQ SCH (09:55)
[2023-01-18] MEDS: LORAZEPAM 1 MG TABLET GT PRN ×2 (10:36→22:00)
[2023-01-18] MEDS: JEVITY 1.2 1000 ML LIQUID GT PRN (12:09)
[2023-01-18] MEDS: HYDROMORPHONE HCL 4 MG TABLET GT PRN (17:30)
[2023-01-18 19:55] VITALS: TEMP 98.4
[2023-01-18] MEDS: hydrOXYzine HCL 25 MG TABLET GT SCH (21:40)
[2023-01-18] MEDS: MELATONIN 3 MG TABLET GT SCH (21:41)
[2023-01-18] MEDS: ACETAMINOPHEN 650 MG/20 ML UDC- SA PATIENTS-PAIN ONLY GT PRN (22:12)
[2023-01-19] MEDS: IPRATROPIUM BROMIDE 0.5 MG/2.5 ML NEBU NEB SCH ×4 (01:35→19:06)
[2023-01-19] MEDS: HYDROCODONE/APAP 5-325MG TABLET PO PRN (05:30)
[2023-01-19] MEDS: GABAPENTIN 300 MG/6 ML GT SCH ×3 (05:48→21:13)
[2023-01-19] MEDS: RILUZOLE 50 MG TAB GT SCH ×2 (05:49→18:15)
[2023-01-19] MEDS: OMEPRAZOLE 20 MG CAPSULE.DR GT SCH (05:49)
[2023-01-19] MEDS: DOCUSATE SODIUM 100 MG/10 ML LIQUID UDC GT SCH ×2 (09:00→21:12)
[2023-01-19] MEDS: CHLORHEXIDINE GLUCONATE 15 ML MOUTHWASH MM SCH ×2 (09:00→17:00)
[2023-01-19] MEDS: OLOPATADINE 0.1% OPHT DROP 5 ML BOTTLE EACHEYE SCH ×2 (09:00→17:00)
[2023-01-19] MEDS: HYDROGEN PEROXIDE 3% 118 ML BOTTLE TP SCH ×2 (09:00→19:08)
[2023-01-19] MEDS: DICLOFENAC SODIUM 100 GM GEL..GRAM. TP SCH ×2 (09:00→21:15)
[2023-01-19] MEDS: POTASSIUM CHLORIDE 40 MEQ/15 ML LIQUID GT SCH (09:00)
[2023-01-19] MEDS: FLUTICASONE PROP NASAL SPRAY 16 GM BOTTLE NS SCH (09:00)
[2023-01-19] MEDS: FLUOXETINE HCL 40 MG CAPSULE GT SCH ×2 (09:00→13:00)
[2023-01-19] MEDS: risperiDONE 0.25 MG TABLET GT SCH ×2 (09:00→17:00)
[2023-01-19] MEDS: ZINC OXIDE TOP SCH ×2 (09:00→21:14)
[2023-01-19] MEDS: LORATADINE 10 MG TABLET GT SCH (09:00)
[2023-01-19] MEDS: ENOXAPARIN SODIUM 40 MG/0.4 ML DISP.SYRIN SQ SCH (09:00)
[2023-01-19] MEDS: HYDROMORPHONE HCL 4 MG TABLET GT PRN ×2 (10:41→18:16)
[2023-01-19] MEDS: POLYVINYL ALCOHOL OPHT DROPS 15 ML BOTTLE EACHEYE PRN ×2 (11:02→18:30)
[2023-01-19] MEDS: JEVITY 1.2 1000 ML LIQUID GT PRN (11:02)
[2023-01-19] MEDS: ACETAMINOPHEN 650 MG/20 ML UDC- SA PATIENTS-PAIN ONLY GT PRN (14:42)
[2023-01-19 15:11] VITALS: TEMP 97.4
[2023-01-19 20:00] VITALS: TEMP 99
[2023-01-19] MEDS: hydrOXYzine HCL 25 MG TABLET GT SCH (21:12)
[2023-01-19] MEDS: MELATONIN 3 MG TABLET GT SCH (21:13)
[2023-01-19] MEDS: LORAZEPAM 1 MG TABLET GT PRN (22:00)
[2023-01-20] MEDS: IPRATROPIUM BROMIDE 0.5 MG/2.5 ML NEBU NEB SCH ×4 (00:48→19:09)
[2023-01-20] MEDS: JEVITY 1.2 1000 ML LIQUID GT PRN (05:00)
[2023-01-20] MEDS: GABAPENTIN 300 MG/6 ML GT SCH ×3 (05:27→21:30)
[2023-01-20] MEDS: OMEPRAZOLE 20 MG CAPSULE.DR GT SCH (05:27)
[2023-01-20] MEDS: RILUZOLE 50 MG TAB GT SCH ×2 (05:27→17:26)
[2023-01-20 08:00] VITALS: TEMP 97.6
[2023-01-20] MEDS: OLOPATADINE 0.1% OPHT DROP 5 ML BOTTLE EACHEYE SCH ×2 (08:27→17:26)
[2023-01-20] MEDS: POTASSIUM CHLORIDE 40 MEQ/15 ML LIQUID GT SCH (08:27)
[2023-01-20] MEDS: LORATADINE 10 MG TABLET GT SCH (08:27)
[2023-01-20] MEDS: DOCUSATE SODIUM 100 MG/10 ML LIQUID UDC GT SCH ×2 (08:27→21:30)
[2023-01-20] MEDS: FLUOXETINE HCL 40 MG CAPSULE GT SCH ×2 (08:27→13:12)
[2023-01-20] MEDS: risperiDONE 0.25 MG TABLET GT SCH ×2 (08:28→17:26)
[2023-01-20] MEDS: FLUTICASONE PROP NASAL SPRAY 16 GM BOTTLE NS SCH (08:28)
[2023-01-20] MEDS: CHLORHEXIDINE GLUCONATE 15 ML MOUTHWASH MM SCH ×2 (08:28→17:26)
[2023-01-20] MEDS: ENOXAPARIN SODIUM 40 MG/0.4 ML DISP.SYRIN SQ SCH (08:30)
[2023-01-20] MEDS: ZINC OXIDE TOP SCH ×2 (08:30→21:30)
[2023-01-20] MEDS: DICLOFENAC SODIUM 100 GM GEL..GRAM. TP SCH ×2 (08:30→21:30)
[2023-01-20] MEDS: HYDROMORPHONE HCL 4 MG TABLET GT PRN ×3 (08:31→17:26)
[2023-01-20] MEDS: HYDROGEN PEROXIDE 3% 118 ML BOTTLE TP SCH ×2 (09:14→21:08)
[2023-01-20 20:00] VITALS: TEMP 99.6
[2023-01-20] MEDS: MELATONIN 3 MG TABLET GT SCH (21:30)
[2023-01-20] MEDS: LORAZEPAM 1 MG TABLET GT PRN (21:30)
[2023-01-20] MEDS: hydrOXYzine HCL 25 MG TABLET GT SCH (21:30)
[2023-01-21] MEDS: IPRATROPIUM BROMIDE 0.5 MG/2.5 ML NEBU NEB SCH ×4 (01:02→19:17)
[2023-01-21] MEDS: JEVITY 1.2 1000 ML LIQUID GT PRN (03:54)
[2023-01-21] MEDS: GABAPENTIN 300 MG/6 ML GT SCH ×3 (05:22→20:20)
[2023-01-21] MEDS: RILUZOLE 50 MG TAB GT SCH ×2 (05:22→17:00)
[2023-01-21] MEDS: OMEPRAZOLE 20 MG CAPSULE.DR GT SCH (05:22)
[2023-01-21 07:34] VITALS: TEMP 97.6
[2023-01-21] MEDS: HYDROGEN PEROXIDE 3% 118 ML BOTTLE TP SCH ×2 (08:18→19:17)
[2023-01-21] MEDS: DOCUSATE SODIUM 100 MG/10 ML LIQUID UDC GT SCH ×2 (08:29→20:18)
[2023-01-21] MEDS: LORATADINE 10 MG TABLET GT SCH (08:29)
[2023-01-21] MEDS: OLOPATADINE 0.1% OPHT DROP 5 ML BOTTLE EACHEYE SCH ×2 (08:29→17:00)
[2023-01-21] MEDS: FLUOXETINE HCL 40 MG CAPSULE GT SCH ×2 (08:30→13:01)
[2023-01-21] MEDS: POTASSIUM CHLORIDE 40 MEQ/15 ML LIQUID GT SCH (08:30)
[2023-01-21] MEDS: CHLORHEXIDINE GLUCONATE 15 ML MOUTHWASH MM SCH ×2 (08:31→16:59)
[2023-01-21] MEDS: risperiDONE 0.25 MG TABLET GT SCH ×2 (08:31→16:59)
[2023-01-21] MEDS: FLUTICASONE PROP NASAL SPRAY 16 GM BOTTLE NS SCH (08:32)
[2023-01-21] MEDS: ENOXAPARIN SODIUM 40 MG/0.4 ML DISP.SYRIN SQ SCH (08:32)
[2023-01-21] MEDS: HYDROMORPHONE HCL 4 MG TABLET GT PRN ×4 (08:33→21:42)
[2023-01-21] MEDS: ZINC OXIDE TOP SCH ×2 (08:33→20:19)
[2023-01-21] MEDS: DICLOFENAC SODIUM 100 GM GEL..GRAM. TP SCH ×2 (08:33→20:19)
[2023-01-21] MEDS: POLYVINYL ALCOHOL OPHT DROPS 15 ML BOTTLE EACHEYE PRN (17:08)
[2023-01-21 20:00] VITALS: TEMP 98.8
[2023-01-21] MEDS: MELATONIN 3 MG TABLET GT SCH (20:18)
[2023-01-21] MEDS: hydrOXYzine HCL 25 MG TABLET GT SCH (20:18)
[2023-01-21] MEDS: LORAZEPAM 1 MG TABLET GT PRN (20:25)
[2023-01-22] MEDS: IPRATROPIUM BROMIDE 0.5 MG/2.5 ML NEBU NEB SCH ×4 (01:27→19:13)
[2023-01-22] MEDS: JEVITY 1.2 1000 ML LIQUID GT PRN ×3 (04:51→22:09)
[2023-01-22] MEDS: OMEPRAZOLE 20 MG CAPSULE.DR GT SCH (05:02)
[2023-01-22] MEDS: RILUZOLE 50 MG TAB GT SCH ×2 (05:02→17:34)
[2023-01-22] MEDS: GABAPENTIN 300 MG/6 ML GT SCH ×3 (05:02→20:08)
[2023-01-22 07:41] VITALS: TEMP 98.6
[2023-01-22] MEDS: HYDROGEN PEROXIDE 3% 118 ML BOTTLE TP SCH ×2 (08:47→19:13)
[2023-01-22] MEDS: HYDROMORPHONE HCL 4 MG TABLET GT PRN ×4 (09:30→22:09)
[2023-01-22] MEDS: LORATADINE 10 MG TABLET GT SCH (09:37)
[2023-01-22] MEDS: ZINC OXIDE TOP SCH ×2 (09:37→20:09)
[2023-01-22] MEDS: POTASSIUM CHLORIDE 40 MEQ/15 ML LIQUID GT SCH (09:37)
[2023-01-22] MEDS: ENOXAPARIN SODIUM 40 MG/0.4 ML DISP.SYRIN SQ SCH (09:37)
[2023-01-22] MEDS: DICLOFENAC SODIUM 100 GM GEL..GRAM. TP SCH ×2 (09:37→20:09)
[2023-01-22] MEDS: CHLORHEXIDINE GLUCONATE 15 ML MOUTHWASH MM SCH ×2 (09:37→17:33)
[2023-01-22] MEDS: FLUTICASONE PROP NASAL SPRAY 16 GM BOTTLE NS SCH (09:37)
[2023-01-22] MEDS: OLOPATADINE 0.1% OPHT DROP 5 ML BOTTLE EACHEYE SCH ×2 (09:37→17:33)
[2023-01-22] MEDS: DOCUSATE SODIUM 100 MG/10 ML LIQUID UDC GT SCH ×2 (09:37→20:08)
[2023-01-22] MEDS: risperiDONE 0.25 MG TABLET GT SCH ×2 (09:37→17:33)
[2023-01-22] MEDS: FLUOXETINE HCL 40 MG CAPSULE GT SCH ×2 (09:37→13:34)
[2023-01-22 20:00] VITALS: TEMP 99.4
[2023-01-22] MEDS: hydrOXYzine HCL 25 MG TABLET GT SCH (20:08)
[2023-01-22] MEDS: MELATONIN 3 MG TABLET GT SCH (20:09)
[2023-01-22] MEDS: LORAZEPAM 1 MG TABLET GT PRN (20:17)
[2023-01-23] MEDS: IPRATROPIUM BROMIDE 0.5 MG/2.5 ML NEBU NEB SCH ×4 (01:19→19:14)
[2023-01-23] MEDS: RILUZOLE 50 MG TAB GT SCH ×2 (05:36→17:06)
[2023-01-23] MEDS: GABAPENTIN 300 MG/6 ML GT SCH ×3 (05:36→20:10)
[2023-01-23] MEDS: OMEPRAZOLE 20 MG CAPSULE.DR GT SCH (05:36)
[2023-01-23 08:00] VITALS: TEMP 98.8
[2023-01-23] MEDS ORDERED: VITAMIN E TP PRN (08:00)
[2023-01-23] MEDS ORDERED: [UNRECOGNIZED DRUG - OTHER] TP PRN (08:00)
[2023-01-23] MEDS: LORATADINE 10 MG TABLET GT SCH (09:05)
[2023-01-23] MEDS: DOCUSATE SODIUM 100 MG/10 ML LIQUID UDC GT SCH ×2 (09:05→20:08)
[2023-01-23] MEDS: FLUOXETINE HCL 40 MG CAPSULE GT SCH ×2 (09:06→12:28)
[2023-01-23] MEDS: POTASSIUM CHLORIDE 40 MEQ/15 ML LIQUID GT SCH (09:06)
[2023-01-23] MEDS: risperiDONE 0.25 MG TABLET GT SCH ×2 (09:07→17:06)
[2023-01-23] MEDS: CHLORHEXIDINE GLUCONATE 15 ML MOUTHWASH MM SCH ×2 (09:08→17:06)
[2023-01-23] MEDS: FLUTICASONE PROP NASAL SPRAY 16 GM BOTTLE NS SCH (09:08)
[2023-01-23] MEDS: OLOPATADINE 0.1% OPHT DROP 5 ML BOTTLE EACHEYE SCH ×2 (09:08→17:05)
[2023-01-23] MEDS: ZINC OXIDE TOP SCH ×2 (09:08→20:09)
[2023-01-23] MEDS: DICLOFENAC SODIUM 100 GM GEL..GRAM. TP SCH ×2 (09:08→20:09)
[2023-01-23] MEDS: HYDROMORPHONE HCL 4 MG TABLET GT PRN ×4 (09:09→22:01)
[2023-01-23] MEDS: HYDROGEN PEROXIDE 3% 118 ML BOTTLE TP SCH ×2 (09:17→19:14)
[2023-01-23] MEDS: ENOXAPARIN SODIUM 40 MG/0.4 ML DISP.SYRIN SQ SCH (09:18)
[2023-01-23] MEDS: JEVITY 1.2 1000 ML LIQUID GT PRN (17:12)
[2023-01-23] MEDS: MELATONIN 3 MG TABLET GT SCH (20:08)
[2023-01-23] MEDS: LORAZEPAM 1 MG TABLET GT PRN (20:16)
[2023-01-23] MEDS: hydrOXYzine HCL 25 MG TABLET GT SCH (20:16)
[2023-01-23 20:17] VITALS: TEMP 98.5
[2023-01-24] MEDS: IPRATROPIUM BROMIDE 0.5 MG/2.5 ML NEBU NEB SCH ×4 (01:03→19:13)
[2023-01-24] MEDS: OMEPRAZOLE 20 MG CAPSULE.DR GT SCH (06:59)
[2023-01-24] MEDS: RILUZOLE 50 MG TAB GT SCH ×2 (06:59→17:22)
[2023-01-24] MEDS: GABAPENTIN 300 MG/6 ML GT SCH ×3 (06:59→20:39)
[2023-01-24 08:48] VITALS: TEMP 98.6
[2023-01-24] MEDS: HYDROGEN PEROXIDE 3% 118 ML BOTTLE TP SCH ×2 (09:13→19:14)
[2023-01-24] MEDS: FLUOXETINE HCL 40 MG CAPSULE GT SCH ×2 (09:18→13:32)
[2023-01-24] MEDS: LORATADINE 10 MG TABLET GT SCH (09:18)
[2023-01-24] MEDS: OLOPATADINE 0.1% OPHT DROP 5 ML BOTTLE EACHEYE SCH ×2 (09:18→17:21)
[2023-01-24] MEDS: DOCUSATE SODIUM 100 MG/10 ML LIQUID UDC GT SCH ×2 (09:18→20:38)
[2023-01-24] MEDS: POTASSIUM CHLORIDE 40 MEQ/15 ML LIQUID GT SCH (09:19)
[2023-01-24] MEDS: CHLORHEXIDINE GLUCONATE 15 ML MOUTHWASH MM SCH ×2 (09:19→17:22)
[2023-01-24] MEDS: risperiDONE 0.25 MG TABLET GT SCH ×2 (09:19→17:21)
[2023-01-24] MEDS: FLUTICASONE PROP NASAL SPRAY 16 GM BOTTLE NS SCH (09:20)
[2023-01-24] MEDS: ENOXAPARIN SODIUM 40 MG/0.4 ML DISP.SYRIN SQ SCH (09:21)
[2023-01-24] MEDS: ZINC OXIDE TOP SCH ×2 (09:21→20:41)
[2023-01-24] MEDS: DICLOFENAC SODIUM 100 GM GEL..GRAM. TP SCH ×2 (09:21→20:42)
[2023-01-24] MEDS: HYDROMORPHONE HCL 4 MG TABLET GT PRN ×4 (09:23→17:35)
[2023-01-24] MEDS: JEVITY 1.2 1000 ML LIQUID GT PRN (13:34)
[2023-01-24 19:43] VITALS: TEMP 98.2
[2023-01-24] MEDS: hydrOXYzine HCL 25 MG TABLET GT SCH (20:38)
[2023-01-24] MEDS: MELATONIN 3 MG TABLET GT SCH (20:39)
[2023-01-24] MEDS: LORAZEPAM 1 MG TABLET GT PRN (20:43)
[2023-01-25] MEDS: IPRATROPIUM BROMIDE 0.5 MG/2.5 ML NEBU NEB SCH ×4 (01:11→19:20)
[2023-01-25] MEDS: GABAPENTIN 300 MG/6 ML GT SCH ×3 (05:15→21:07)
[2023-01-25] MEDS: OMEPRAZOLE 20 MG CAPSULE.DR GT SCH (05:15)
[2023-01-25] MEDS: RILUZOLE 50 MG TAB GT SCH ×2 (05:16→17:50)
[2023-01-25] MEDS: ACETAMINOPHEN 650 MG/20 ML UDC- SA PATIENTS-PAIN ONLY GT PRN (06:00)
[2023-01-25] MEDS: JEVITY 1.2 1000 ML LIQUID GT PRN (06:00)
[2023-01-25] MEDS: HYDROGEN PEROXIDE 3% 118 ML BOTTLE TP SCH ×2 (08:17→19:20)
[2023-01-25 08:35] VITALS: TEMP 98.6
[2023-01-25] MEDS: LORATADINE 10 MG TABLET GT SCH (09:23)
[2023-01-25] MEDS: OLOPATADINE 0.1% OPHT DROP 5 ML BOTTLE EACHEYE SCH ×2 (09:23→17:48)
[2023-01-25] MEDS: DOCUSATE SODIUM 100 MG/10 ML LIQUID UDC GT SCH ×2 (09:24→21:06)
[2023-01-25] MEDS: FLUOXETINE HCL 40 MG CAPSULE GT SCH ×2 (09:24→13:00)
[2023-01-25] MEDS: POTASSIUM CHLORIDE 40 MEQ/15 ML LIQUID GT SCH (09:25)
[2023-01-25] MEDS: ZINC OXIDE TOP SCH ×2 (09:26→21:08)
[2023-01-25] MEDS: risperiDONE 0.25 MG TABLET GT SCH ×2 (09:26→17:49)
[2023-01-25] MEDS: CHLORHEXIDINE GLUCONATE 15 ML MOUTHWASH MM SCH ×2 (09:26→17:50)
[2023-01-25] MEDS: FLUTICASONE PROP NASAL SPRAY 16 GM BOTTLE NS SCH (09:26)
[2023-01-25] MEDS: DICLOFENAC SODIUM 100 GM GEL..GRAM. TP SCH ×2 (09:27→21:08)
[2023-01-25] MEDS: HYDROMORPHONE HCL 4 MG TABLET GT PRN ×3 (09:28→18:57)
[2023-01-25] MEDS: ENOXAPARIN SODIUM 40 MG/0.4 ML DISP.SYRIN SQ SCH (09:44)
[2023-01-25 19:40] VITALS: TEMP 98.2
[2023-01-25] MEDS: hydrOXYzine HCL 25 MG TABLET GT SCH (21:05)
[2023-01-25] MEDS: MELATONIN 3 MG TABLET GT SCH (21:07)
[2023-01-25] MEDS: LORAZEPAM 1 MG TABLET GT PRN (22:07)
[2023-01-26] MEDS: IPRATROPIUM BROMIDE 0.5 MG/2.5 ML NEBU NEB SCH ×4 (01:13→19:20)
[2023-01-26] MEDS: GABAPENTIN 300 MG/6 ML GT SCH ×3 (05:32→20:23)
[2023-01-26] MEDS: RILUZOLE 50 MG TAB GT SCH ×2 (05:32→18:50)
[2023-01-26] MEDS: OMEPRAZOLE 20 MG CAPSULE.DR GT SCH (05:32)
[2023-01-26] MEDS: JEVITY 1.2 1000 ML LIQUID GT PRN (05:33)
[2023-01-26] MEDS: ACETAMINOPHEN 650 MG/20 ML UDC- SA PATIENTS-PAIN ONLY GT PRN (06:08)
[2023-01-26 07:36] VITALS: TEMP 98.2
[2023-01-26] MEDS: FLUTICASONE PROP NASAL SPRAY 16 GM BOTTLE NS SCH (09:00)
[2023-01-26] MEDS: ENOXAPARIN SODIUM 40 MG/0.4 ML DISP.SYRIN SQ SCH (09:00)
[2023-01-26] MEDS: POTASSIUM CHLORIDE 40 MEQ/15 ML LIQUID GT SCH (09:00)
[2023-01-26] MEDS: CHLORHEXIDINE GLUCONATE 15 ML MOUTHWASH MM SCH ×2 (09:00→17:00)
[2023-01-26] MEDS: risperiDONE 0.25 MG TABLET GT SCH ×2 (09:00→17:00)
[2023-01-26] MEDS: ZINC OXIDE TOP SCH ×2 (09:00→20:23)
[2023-01-26] MEDS: HYDROGEN PEROXIDE 3% 118 ML BOTTLE TP SCH ×2 (09:50→19:20)
[2023-01-26] MEDS: HYDROMORPHONE HCL 4 MG TABLET GT PRN ×3 (09:53→18:52)
[2023-01-26] MEDS: DICLOFENAC SODIUM 100 GM GEL..GRAM. TP SCH ×2 (09:56→20:23)
[2023-01-26] MEDS: OLOPATADINE 0.1% OPHT DROP 5 ML BOTTLE EACHEYE SCH ×2 (09:56→17:00)
[2023-01-26] MEDS: LORATADINE 10 MG TABLET GT SCH (09:57)
[2023-01-26] MEDS: DOCUSATE SODIUM 100 MG/10 ML LIQUID UDC GT SCH ×2 (09:58→20:22)
[2023-01-26] MEDS: FLUOXETINE HCL 40 MG CAPSULE GT SCH ×2 (10:00→13:00)
[2023-01-26 20:00] VITALS: TEMP 98.9
[2023-01-26] MEDS: hydrOXYzine HCL 25 MG TABLET GT SCH (20:22)
[2023-01-26] MEDS: MELATONIN 3 MG TABLET GT SCH (20:23)
[2023-01-26] MEDS: LORAZEPAM 1 MG TABLET GT PRN (21:15)
[2023-01-27] MEDS: IPRATROPIUM BROMIDE 0.5 MG/2.5 ML NEBU NEB SCH ×4 (01:30→19:08)
[2023-01-27] MEDS: JEVITY 1.2 1000 ML LIQUID GT PRN (02:26)
[2023-01-27] MEDS: OMEPRAZOLE 20 MG CAPSULE.DR GT SCH (05:19)
[2023-01-27] MEDS: GABAPENTIN 300 MG/6 ML GT SCH ×3 (05:19→20:17)
[2023-01-27] MEDS: RILUZOLE 50 MG TAB GT SCH ×2 (05:19→18:10)
[2023-01-27 08:00] VITALS: TEMP 98.8
[2023-01-27] MEDS: FLUTICASONE PROP NASAL SPRAY 16 GM BOTTLE NS SCH (09:00)
[2023-01-27] MEDS: OLOPATADINE 0.1% OPHT DROP 5 ML BOTTLE EACHEYE SCH ×2 (09:00→17:00)
[2023-01-27] MEDS: LORATADINE 10 MG TABLET GT SCH (09:00)
[2023-01-27] MEDS: risperiDONE 0.25 MG TABLET GT SCH ×2 (09:00→17:00)
[2023-01-27] MEDS: CHLORHEXIDINE GLUCONATE 15 ML MOUTHWASH MM SCH ×2 (09:00→17:00)
[2023-01-27] MEDS: FLUOXETINE HCL 40 MG CAPSULE GT SCH ×2 (09:00→13:00)
[2023-01-27] MEDS: POTASSIUM CHLORIDE 40 MEQ/15 ML LIQUID GT SCH (09:00)
[2023-01-27] MEDS: DICLOFENAC SODIUM 100 GM GEL..GRAM. TP SCH ×2 (09:00→20:17)
[2023-01-27] MEDS: DOCUSATE SODIUM 100 MG/10 ML LIQUID UDC GT SCH ×2 (09:00→20:17)
[2023-01-27] MEDS: ENOXAPARIN SODIUM 40 MG/0.4 ML DISP.SYRIN SQ SCH (09:00)
[2023-01-27] MEDS: ZINC OXIDE TOP SCH ×2 (09:00→20:17)
[2023-01-27] MEDS: HYDROGEN PEROXIDE 3% 118 ML BOTTLE TP SCH ×2 (09:35→19:08)
[2023-01-27] MEDS: HYDROMORPHONE HCL 4 MG TABLET GT PRN ×3 (10:04→21:30)
[2023-01-27] MEDS: ACETAMINOPHEN 650 MG/20 ML UDC- SA PATIENTS-PAIN ONLY GT PRN (18:10)
[2023-01-27 20:00] VITALS: TEMP 97.8
[2023-01-27] MEDS: hydrOXYzine HCL 25 MG TABLET GT SCH (20:16)
[2023-01-27] MEDS: MELATONIN 3 MG TABLET GT SCH (20:17)
[2023-01-27] MEDS: LORAZEPAM 1 MG TABLET GT PRN (21:00)
[2023-01-28] MEDS: IPRATROPIUM BROMIDE 0.5 MG/2.5 ML NEBU NEB SCH ×4 (01:20→19:27)
[2023-01-28] MEDS: JEVITY 1.2 1000 ML LIQUID GT PRN (03:40)
[2023-01-28] MEDS: ACETAMINOPHEN 650 MG/20 ML UDC- SA PATIENTS-PAIN ONLY GT PRN (03:41)
[2023-01-28] MEDS: RILUZOLE 50 MG TAB GT SCH ×2 (05:08→17:51)
[2023-01-28] MEDS: GABAPENTIN 300 MG/6 ML GT SCH ×3 (05:08→21:18)
[2023-01-28] MEDS: OMEPRAZOLE 20 MG CAPSULE.DR GT SCH (05:08)
[2023-01-28 07:41] VITALS: TEMP 98.8
[2023-01-28] MEDS: HYDROGEN PEROXIDE 3% 118 ML BOTTLE TP SCH ×2 (08:10→19:27)
[2023-01-28] MEDS: LORATADINE 10 MG TABLET GT SCH (09:00)
[2023-01-28] MEDS: FLUTICASONE PROP NASAL SPRAY 16 GM BOTTLE NS SCH (09:00)
[2023-01-28] MEDS: OLOPATADINE 0.1% OPHT DROP 5 ML BOTTLE EACHEYE SCH ×2 (09:00→17:50)
[2023-01-28] MEDS: ZINC OXIDE TOP SCH ×2 (09:00→21:19)
[2023-01-28] MEDS: DICLOFENAC SODIUM 100 GM GEL..GRAM. TP SCH ×2 (09:00→21:19)
[2023-01-28] MEDS: risperiDONE 0.25 MG TABLET GT SCH ×2 (09:00→17:50)
[2023-01-28] MEDS: CHLORHEXIDINE GLUCONATE 15 ML MOUTHWASH MM SCH ×2 (09:00→17:52)
[2023-01-28] MEDS: POTASSIUM CHLORIDE 40 MEQ/15 ML LIQUID GT SCH (09:00)
[2023-01-28] MEDS: DOCUSATE SODIUM 100 MG/10 ML LIQUID UDC GT SCH ×2 (09:00→21:18)
[2023-01-28] MEDS: ENOXAPARIN SODIUM 40 MG/0.4 ML DISP.SYRIN SQ SCH (09:00)
[2023-01-28] MEDS: FLUOXETINE HCL 40 MG CAPSULE GT SCH ×2 (09:00→13:00)
[2023-01-28] MEDS: HYDROMORPHONE HCL 4 MG TABLET GT PRN ×2 (10:34→17:56)
[2023-01-28] MEDS: LORAZEPAM 1 MG TABLET GT PRN ×2 (14:50→20:40)
[2023-01-28 20:00] VITALS: TEMP 98.6
[2023-01-28] MEDS: MELATONIN 3 MG TABLET GT SCH (21:18)
[2023-01-28] MEDS: hydrOXYzine HCL 25 MG TABLET GT SCH (21:18)
[2023-01-29] MEDS: IPRATROPIUM BROMIDE 0.5 MG/2.5 ML NEBU NEB SCH ×4 (01:22→19:07)
[2023-01-29] MEDS: JEVITY 1.2 1000 ML LIQUID GT PRN (06:00)
[2023-01-29] MEDS: GABAPENTIN 300 MG/6 ML GT SCH ×3 (06:52→20:19)
[2023-01-29] MEDS: RILUZOLE 50 MG TAB GT SCH ×2 (06:52→17:57)
[2023-01-29] MEDS: OMEPRAZOLE 20 MG CAPSULE.DR GT SCH (06:52)
[2023-01-29] MEDS: HYDROGEN PEROXIDE 3% 118 ML BOTTLE TP SCH ×2 (07:33→20:19)
[2023-01-29] MEDS: DOCUSATE SODIUM 100 MG/10 ML LIQUID UDC GT SCH ×2 (09:00→20:20)
[2023-01-29] MEDS: LORATADINE 10 MG TABLET GT SCH (09:51)
[2023-01-29] MEDS: OLOPATADINE 0.1% OPHT DROP 5 ML BOTTLE EACHEYE SCH ×2 (09:51→17:57)
[2023-01-29] MEDS: FLUOXETINE HCL 40 MG CAPSULE GT SCH ×2 (09:52→12:24)
[2023-01-29] MEDS: POTASSIUM CHLORIDE 40 MEQ/15 ML LIQUID GT SCH (09:52)
[2023-01-29] MEDS: CHLORHEXIDINE GLUCONATE 15 ML MOUTHWASH MM SCH ×2 (09:54→17:57)
[2023-01-29] MEDS: risperiDONE 0.25 MG TABLET GT SCH ×2 (09:54→17:57)
[2023-01-29] MEDS: FLUTICASONE PROP NASAL SPRAY 16 GM BOTTLE NS SCH (09:55)
[2023-01-29] MEDS: ENOXAPARIN SODIUM 40 MG/0.4 ML DISP.SYRIN SQ SCH (09:56)
[2023-01-29] MEDS: ZINC OXIDE TOP SCH ×2 (09:56→20:19)
[2023-01-29] MEDS: DICLOFENAC SODIUM 100 GM GEL..GRAM. TP SCH ×2 (09:56→20:19)
[2023-01-29] MEDS: HYDROMORPHONE HCL 4 MG TABLET GT PRN ×3 (10:01→18:19)
[2023-01-29 12:39] VITALS: TEMP 98.6
[2023-01-29 20:00] VITALS: TEMP 98.5
[2023-01-29] MEDS: MELATONIN 3 MG TABLET GT SCH (20:19)
[2023-01-29] MEDS: hydrOXYzine HCL 25 MG TABLET GT SCH (20:19)
[2023-01-29] MEDS: LORAZEPAM 1 MG TABLET GT PRN (20:25)
[2023-01-29] MEDS: ACETAMINOPHEN 650 MG/20 ML UDC- SA PATIENTS-PAIN ONLY GT PRN (20:35)
[2023-01-30] MEDS: IPRATROPIUM BROMIDE 0.5 MG/2.5 ML NEBU NEB SCH ×4 (02:17→19:06)
[2023-01-30] MEDS: JEVITY 1.2 1000 ML LIQUID GT PRN (03:26)
[2023-01-30] MEDS: OMEPRAZOLE 20 MG CAPSULE.DR GT SCH (05:04)
[2023-01-30] MEDS: RILUZOLE 50 MG TAB GT SCH ×2 (05:04→17:18)
[2023-01-30] MEDS: GABAPENTIN 300 MG/6 ML GT SCH ×3 (05:04→21:13)
[2023-01-30] MEDS: ACETAMINOPHEN 650 MG/20 ML UDC- SA PATIENTS-PAIN ONLY GT PRN ×2 (05:05→19:59)
[2023-01-30] MEDS: HYDROGEN PEROXIDE 3% 118 ML BOTTLE TP SCH ×2 (07:32→19:06)
[2023-01-30 08:00] VITALS: TEMP 97.9
[2023-01-30] MEDS: OLOPATADINE 0.1% OPHT DROP 5 ML BOTTLE EACHEYE SCH ×2 (09:27→17:17)
[2023-01-30] MEDS: DOCUSATE SODIUM 100 MG/10 ML LIQUID UDC GT SCH ×2 (09:27→21:13)
[2023-01-30] MEDS: LORATADINE 10 MG TABLET GT SCH (09:27)
[2023-01-30] MEDS: FLUOXETINE HCL 40 MG CAPSULE GT SCH ×2 (09:33→13:28)
[2023-01-30] MEDS: POTASSIUM CHLORIDE 40 MEQ/15 ML LIQUID GT SCH (09:34)
[2023-01-30] MEDS: risperiDONE 0.25 MG TABLET GT SCH ×2 (09:35→17:18)
[2023-01-30] MEDS: FLUTICASONE PROP NASAL SPRAY 16 GM BOTTLE NS SCH (09:35)
[2023-01-30] MEDS: CHLORHEXIDINE GLUCONATE 15 ML MOUTHWASH MM SCH ×2 (09:35→17:18)
[2023-01-30] MEDS: ENOXAPARIN SODIUM 40 MG/0.4 ML DISP.SYRIN SQ SCH (09:37)
[2023-01-30] MEDS: ZINC OXIDE TOP SCH ×2 (09:37→21:14)
[2023-01-30] MEDS: DICLOFENAC SODIUM 100 GM GEL..GRAM. TP SCH ×2 (09:37→21:14)
[2023-01-30] MEDS: HYDROMORPHONE HCL 4 MG TABLET GT PRN ×4 (09:38→21:50)
[2023-01-30 20:00] VITALS: TEMP 98.6
[2023-01-30] MEDS: LORAZEPAM 1 MG TABLET GT PRN (21:12)
[2023-01-30] MEDS: hydrOXYzine HCL 25 MG TABLET GT SCH (21:13)
[2023-01-30] MEDS: MELATONIN 3 MG TABLET GT SCH (21:14)
[2023-01-31] MEDS: IPRATROPIUM BROMIDE 0.5 MG/2.5 ML NEBU NEB SCH ×4 (00:31→19:18)
[2023-01-31] MEDS: JEVITY 1.2 1000 ML LIQUID GT PRN ×2 (00:45→21:48)
[2023-01-31] MEDS: RILUZOLE 50 MG TAB GT SCH ×2 (05:50→17:08)
[2023-01-31] MEDS: OMEPRAZOLE 20 MG CAPSULE.DR GT SCH (05:50)
[2023-01-31] MEDS: GABAPENTIN 300 MG/6 ML GT SCH ×3 (05:50→21:28)
[2023-01-31] MEDS: HYDROGEN PEROXIDE 3% 118 ML BOTTLE TP SCH ×2 (07:10→19:18)
[2023-01-31 08:00] VITALS: TEMP 98.5
[2023-01-31 08:15] VITALS: O2SAT 99
[2023-01-31] MEDS: POTASSIUM CHLORIDE 40 MEQ/15 ML LIQUID GT SCH (09:00)
[2023-01-31] MEDS: FLUOXETINE HCL 40 MG CAPSULE GT SCH ×2 (09:00→13:00)
[2023-01-31] MEDS: OLOPATADINE 0.1% OPHT DROP 5 ML BOTTLE EACHEYE SCH ×2 (09:00→16:47)
[2023-01-31] MEDS: ENOXAPARIN SODIUM 40 MG/0.4 ML DISP.SYRIN SQ SCH (09:00)
[2023-01-31] MEDS: LORATADINE 10 MG TABLET GT SCH (09:00)
[2023-01-31] MEDS: FLUTICASONE PROP NASAL SPRAY 16 GM BOTTLE NS SCH (09:00)
[2023-01-31] MEDS: DOCUSATE SODIUM 100 MG/10 ML LIQUID UDC GT SCH ×2 (09:00→21:28)
[2023-01-31] MEDS: CHLORHEXIDINE GLUCONATE 15 ML MOUTHWASH MM SCH ×2 (09:00→16:48)
[2023-01-31] MEDS: ZINC OXIDE TOP SCH ×2 (09:00→21:29)
[2023-01-31] MEDS: DICLOFENAC SODIUM 100 GM GEL..GRAM. TP SCH ×2 (09:00→21:29)
[2023-01-31] MEDS: risperiDONE 0.25 MG TABLET GT SCH ×2 (09:00→16:48)
[2023-01-31] MEDS: HYDROMORPHONE HCL 4 MG TABLET GT PRN ×3 (10:19→21:30)
[2023-01-31] MEDS: ACETAMINOPHEN 650 MG/20 ML UDC- SA PATIENTS-PAIN ONLY GT PRN ×2 (14:16→20:10)
[2023-01-31 20:00] VITALS: TEMP 98.8
[2023-01-31] MEDS: LORAZEPAM 1 MG TABLET GT PRN (21:25)
[2023-01-31] MEDS: hydrOXYzine HCL 25 MG TABLET GT SCH (21:28)
[2023-01-31] MEDS: MELATONIN 3 MG TABLET GT SCH (21:29)
[2023-02-01] MEDS: IPRATROPIUM BROMIDE 0.5 MG/2.5 ML NEBU NEB SCH ×4 (00:41→19:02)
[2023-02-01] MEDS: RILUZOLE 50 MG TAB GT SCH ×2 (05:47→17:54)
[2023-02-01] MEDS: OMEPRAZOLE 20 MG CAPSULE.DR GT SCH (05:47)
[2023-02-01] MEDS: GABAPENTIN 300 MG/6 ML GT SCH ×3 (05:47→21:10)
[2023-02-01 08:34] VITALS: TEMP 98.2
[2023-02-01] MEDS: HYDROGEN PEROXIDE 3% 118 ML BOTTLE TP SCH ×2 (09:34→19:02)
[2023-02-01] MEDS: LORATADINE 10 MG TABLET GT SCH (09:40)
[2023-02-01] MEDS: OLOPATADINE 0.1% OPHT DROP 5 ML BOTTLE EACHEYE SCH ×2 (09:40→17:54)
[2023-02-01] MEDS: DOCUSATE SODIUM 100 MG/10 ML LIQUID UDC GT SCH ×2 (09:41→21:10)
[2023-02-01] MEDS: POTASSIUM CHLORIDE 40 MEQ/15 ML LIQUID GT SCH (09:41)
[2023-02-01] MEDS: FLUOXETINE HCL 40 MG CAPSULE GT SCH ×2 (09:41→13:48)
[2023-02-01] MEDS: risperiDONE 0.25 MG TABLET GT SCH ×2 (09:42→17:54)
[2023-02-01] MEDS: CHLORHEXIDINE GLUCONATE 15 ML MOUTHWASH MM SCH ×2 (09:43→17:54)
[2023-02-01] MEDS: FLUTICASONE PROP NASAL SPRAY 16 GM BOTTLE NS SCH (09:43)
[2023-02-01] MEDS: ZINC OXIDE TOP SCH ×2 (09:43→21:10)
[2023-02-01] MEDS: DICLOFENAC SODIUM 100 GM GEL..GRAM. TP SCH ×2 (09:43→21:10)
[2023-02-01] MEDS: ENOXAPARIN SODIUM 40 MG/0.4 ML DISP.SYRIN SQ SCH (09:44)
[2023-02-01] MEDS: HYDROCODONE/APAP 5-325MG TABLET PO PRN (09:45)
[2023-02-01] MEDS: LORAZEPAM 1 MG TABLET GT PRN ×2 (13:48→20:30)
[2023-02-01] MEDS: HYDROMORPHONE HCL 4 MG TABLET GT PRN ×2 (17:59→23:01)
[2023-02-01] MEDS: JEVITY 1.2 1000 ML LIQUID GT PRN (17:59)
[2023-02-01 20:00] VITALS: TEMP 98.8
[2023-02-01] MEDS: MELATONIN 3 MG TABLET GT SCH (21:10)
[2023-02-01] MEDS: hydrOXYzine HCL 25 MG TABLET GT SCH (21:10)
[2023-02-02] MEDS: IPRATROPIUM BROMIDE 0.5 MG/2.5 ML NEBU NEB SCH ×4 (01:19→19:11)
[2023-02-02] MEDS: GABAPENTIN 300 MG/6 ML GT SCH ×3 (05:10→21:01)
[2023-02-02] MEDS: OMEPRAZOLE 20 MG CAPSULE.DR GT SCH (05:10)
[2023-02-02] MEDS: RILUZOLE 50 MG TAB GT SCH ×2 (05:10→17:53)
[2023-02-02 08:00] VITALS: TEMP 98.2
[2023-02-02] MEDS: LORATADINE 10 MG TABLET GT SCH (09:18)
[2023-02-02] MEDS: DOCUSATE SODIUM 100 MG/10 ML LIQUID UDC GT SCH ×2 (09:18→21:01)
[2023-02-02] MEDS: OLOPATADINE 0.1% OPHT DROP 5 ML BOTTLE EACHEYE SCH ×2 (09:18→17:52)
[2023-02-02] MEDS: FLUOXETINE HCL 40 MG CAPSULE GT SCH ×2 (09:19→13:00)
[2023-02-02] MEDS: POTASSIUM CHLORIDE 40 MEQ/15 ML LIQUID GT SCH (09:20)
[2023-02-02] MEDS: CHLORHEXIDINE GLUCONATE 15 ML MOUTHWASH MM SCH ×2 (09:21→17:52)
[2023-02-02] MEDS: FLUTICASONE PROP NASAL SPRAY 16 GM BOTTLE NS SCH (09:21)
[2023-02-02] MEDS: DICLOFENAC SODIUM 100 GM GEL..GRAM. TP SCH ×2 (09:21→21:01)
[2023-02-02] MEDS: risperiDONE 0.25 MG TABLET GT SCH ×2 (09:21→17:52)
[2023-02-02] MEDS: ZINC OXIDE TOP SCH ×2 (09:21→21:01)
[2023-02-02] MEDS: HYDROCODONE/APAP 5-325MG TABLET PO PRN (09:22)
[2023-02-02] MEDS: ENOXAPARIN SODIUM 40 MG/0.4 ML DISP.SYRIN SQ SCH (09:24)
[2023-02-02] MEDS: HYDROGEN PEROXIDE 3% 118 ML BOTTLE TP SCH ×2 (09:58→19:11)
[2023-02-02] MEDS: JEVITY 1.2 1000 ML LIQUID GT PRN (12:46)
[2023-02-02] MEDS: LORAZEPAM 1 MG TABLET GT PRN ×2 (14:04→21:12)
[2023-02-02] MEDS: HYDROMORPHONE HCL 4 MG TABLET GT PRN ×2 (16:55→23:00)
[2023-02-02 20:00] VITALS: TEMP 97.4
[2023-02-02] MEDS: MELATONIN 3 MG TABLET GT SCH (21:01)
[2023-02-02] MEDS: hydrOXYzine HCL 25 MG TABLET GT SCH (21:01)
[2023-02-03] MEDS: IPRATROPIUM BROMIDE 0.5 MG/2.5 ML NEBU NEB SCH ×4 (00:37→19:07)
[2023-02-03] MEDS: GABAPENTIN 300 MG/6 ML GT SCH ×3 (05:44→21:02)
[2023-02-03] MEDS: OMEPRAZOLE 20 MG CAPSULE.DR GT SCH (05:44)
[2023-02-03] MEDS: RILUZOLE 50 MG TAB GT SCH ×2 (05:44→18:15)
[2023-02-03] MEDS: HYDROGEN PEROXIDE 3% 118 ML BOTTLE TP SCH ×2 (07:20→19:00)
[2023-02-03 08:00] VITALS: TEMP 97.9
[2023-02-03] MEDS: HYDROMORPHONE HCL 4 MG TABLET GT PRN ×3 (09:11→18:12)
[2023-02-03] MEDS: ENOXAPARIN SODIUM 40 MG/0.4 ML DISP.SYRIN SQ SCH (09:50)
[2023-02-03] MEDS: LORATADINE 10 MG TABLET GT SCH (09:54)
[2023-02-03] MEDS: OLOPATADINE 0.1% OPHT DROP 5 ML BOTTLE EACHEYE SCH ×2 (09:54→17:00)
[2023-02-03] MEDS: POTASSIUM CHLORIDE 40 MEQ/15 ML LIQUID GT SCH (09:55)
[2023-02-03] MEDS: FLUOXETINE HCL 40 MG CAPSULE GT SCH ×2 (09:55→13:56)
[2023-02-03] MEDS: DOCUSATE SODIUM 100 MG/10 ML LIQUID UDC GT SCH ×2 (09:55→21:02)
[2023-02-03] MEDS: risperiDONE 0.25 MG TABLET GT SCH ×2 (09:56→17:00)
[2023-02-03] MEDS: CHLORHEXIDINE GLUCONATE 15 ML MOUTHWASH MM SCH ×2 (09:56→17:00)
[2023-02-03] MEDS: DICLOFENAC SODIUM 100 GM GEL..GRAM. TP SCH ×2 (09:56→21:03)
[2023-02-03] MEDS: FLUTICASONE PROP NASAL SPRAY 16 GM BOTTLE NS SCH (09:56)
[2023-02-03] MEDS: ZINC OXIDE TOP SCH ×2 (09:56→21:03)
[2023-02-03 20:00] VITALS: TEMP 99
[2023-02-03] MEDS: LORAZEPAM 1 MG TABLET GT PRN (21:00)
[2023-02-03] MEDS: MELATONIN 3 MG TABLET GT SCH (21:02)
[2023-02-03] MEDS: hydrOXYzine HCL 25 MG TABLET GT SCH (21:02)
[2023-02-04] MEDS: IPRATROPIUM BROMIDE 0.5 MG/2.5 ML NEBU NEB SCH ×4 (00:36→20:15)
[2023-02-04] MEDS: RILUZOLE 50 MG TAB GT SCH ×2 (05:45→18:20)
[2023-02-04] MEDS: OMEPRAZOLE 20 MG CAPSULE.DR GT SCH (05:45)
[2023-02-04] MEDS: GABAPENTIN 300 MG/6 ML GT SCH ×3 (05:45→21:00)
[2023-02-04 08:00] VITALS: TEMP 97
[2023-02-04] MEDS: HYDROGEN PEROXIDE 3% 118 ML BOTTLE TP SCH ×2 (09:15→20:15)
[2023-02-04] MEDS: HYDROMORPHONE HCL 4 MG TABLET GT PRN ×2 (09:31→18:19)
[2023-02-04] MEDS: OLOPATADINE 0.1% OPHT DROP 5 ML BOTTLE EACHEYE SCH ×2 (09:32→17:00)
[2023-02-04] MEDS: LORATADINE 10 MG TABLET GT SCH (09:33)
[2023-02-04] MEDS: FLUOXETINE HCL 40 MG CAPSULE GT SCH ×2 (09:34→13:50)
[2023-02-04] MEDS: DOCUSATE SODIUM 100 MG/10 ML LIQUID UDC GT SCH ×2 (09:34→21:00)
[2023-02-04] MEDS: CHLORHEXIDINE GLUCONATE 15 ML MOUTHWASH MM SCH ×2 (09:35→17:00)
[2023-02-04] MEDS: FLUTICASONE PROP NASAL SPRAY 16 GM BOTTLE NS SCH (09:35)
[2023-02-04] MEDS: risperiDONE 0.25 MG TABLET GT SCH ×2 (09:35→17:00)
[2023-02-04] MEDS: ZINC OXIDE TOP SCH ×2 (09:38→21:00)
[2023-02-04] MEDS: DICLOFENAC SODIUM 100 GM GEL..GRAM. TP SCH ×2 (09:38→21:00)
[2023-02-04] MEDS: POTASSIUM CHLORIDE 40 MEQ/15 ML LIQUID GT SCH (09:38)
[2023-02-04] MEDS: ENOXAPARIN SODIUM 40 MG/0.4 ML DISP.SYRIN SQ SCH (09:41)
[2023-02-04] MEDS: ACETAMINOPHEN 650 MG/20 ML UDC- SA PATIENTS-PAIN ONLY GT PRN (11:38)
[2023-02-04] MEDS: LORAZEPAM 1 MG TABLET GT PRN (13:49)
[2023-02-04] MEDS: JEVITY 1.2 1000 ML LIQUID GT PRN (13:56)
[2023-02-04] MEDS ORDERED: HYDROMORPHONE HCL 4 MG TABLET GT PRN (18:45)
[2023-02-04 19:32] LABS: *BILIRUBIN,URIN NEGATIVE (NEGATIVE); *BLOOD, URINE 3+ (NEGATIVE); *CLARITY,URINE CLEAR (CLEAR); *COLOR,URINE YELLOW (YELLOW); *KETONES,URINE NEGATIVE (NEGATIVE); LEUKOCYTE ESTERASE ,URINE 3+ (NEGATIVE); NITRITE, URINE POSITIVE (NEGATIVE); PH,URINE 8.5 (5.0-8.0); UGLUCOSE NEGATIVE (NEGATIVE)
[2023-02-04 19:35] LABS: *PROTEIN,URINE 3+ (NEGATIVE)
[2023-02-04 20:00] VITALS: TEMP 99
[2023-02-04 20:20] LABS: BACTERIA,URINE MANY /HPF (NONE SEEN); RBC,URINE 50-80 /HPF (0-3)
[2023-02-04 20:21] LABS: SQUAMOUS EPITHELIAL CELL,UR FEW /HPF (NONE SEEN); TRIPLE PHOSPHATE CRYSTAL,UR MANY /HPF (NONE SEEN)
[2023-02-04] MEDS: MELATONIN 3 MG TABLET GT SCH (21:00)
[2023-02-04] MEDS: hydrOXYzine HCL 25 MG TABLET GT SCH (21:00)
[2023-02-05] MEDS: IPRATROPIUM BROMIDE 0.5 MG/2.5 ML NEBU NEB SCH ×4 (01:52→19:53)
[2023-02-05] MEDS: OMEPRAZOLE 20 MG CAPSULE.DR GT SCH (06:17)
[2023-02-05] MEDS: RILUZOLE 50 MG TAB GT SCH ×2 (06:17→18:32)
[2023-02-05] MEDS: GABAPENTIN 300 MG/6 ML GT SCH ×3 (06:17→21:06)
[2023-02-05 08:08] VITALS: TEMP 98.7
[2023-02-05] MEDS: LORATADINE 10 MG TABLET GT SCH (09:33)
[2023-02-05] MEDS: HYDROMORPHONE HCL 2 MG TABLET GT PRN ×2 (09:33→18:29)
[2023-02-05] MEDS: OLOPATADINE 0.1% OPHT DROP 5 ML BOTTLE EACHEYE SCH ×2 (09:33→17:00)
[2023-02-05] MEDS: HYDROGEN PEROXIDE 3% 118 ML BOTTLE TP SCH ×2 (09:35→19:53)
[2023-02-05] MEDS: DOCUSATE SODIUM 100 MG/10 ML LIQUID UDC GT SCH ×2 (09:36→21:06)
[2023-02-05] MEDS: FLUOXETINE HCL 40 MG CAPSULE GT SCH ×2 (09:37→13:00)
[2023-02-05] MEDS: risperiDONE 0.25 MG TABLET GT SCH ×2 (09:38→17:00)
[2023-02-05] MEDS: CHLORHEXIDINE GLUCONATE 15 ML MOUTHWASH MM SCH ×2 (09:38→17:00)
[2023-02-05] MEDS: POTASSIUM CHLORIDE 40 MEQ/15 ML LIQUID GT SCH (09:39)
[2023-02-05] MEDS: ENOXAPARIN SODIUM 40 MG/0.4 ML DISP.SYRIN SQ SCH (09:43)
[2023-02-05] MEDS: DICLOFENAC SODIUM 100 GM GEL..GRAM. TP SCH ×2 (09:44→21:07)
[2023-02-05] MEDS: ZINC OXIDE TOP SCH ×2 (09:44→21:06)
[2023-02-05] MEDS: FLUTICASONE PROP NASAL SPRAY 16 GM BOTTLE NS SCH (09:44)
[2023-02-05] MEDS: JEVITY 1.2 1000 ML LIQUID GT PRN (14:37)
[2023-02-05] MEDS: LORAZEPAM 1 MG TABLET GT PRN ×2 (14:40→21:09)
[2023-02-05 20:00] VITALS: TEMP 98.8
[2023-02-05] MEDS: hydrOXYzine HCL 25 MG TABLET GT SCH (21:06)
[2023-02-05] MEDS: MELATONIN 3 MG TABLET GT SCH (21:06)
[2023-02-05] MEDS: ACETAMINOPHEN 650 MG/20 ML UDC- SA PATIENTS-PAIN ONLY GT PRN (21:09)
[2023-02-06] MEDS: IPRATROPIUM BROMIDE 0.5 MG/2.5 ML NEBU NEB SCH ×4 (01:59→19:13)
[2023-02-06] MEDS: ACETAMINOPHEN 650 MG/20 ML UDC- SA PATIENTS-PAIN ONLY GT PRN (06:36)
[2023-02-06] MEDS: RILUZOLE 50 MG TAB GT SCH ×2 (06:36→17:06)
[2023-02-06] MEDS: OMEPRAZOLE 20 MG CAPSULE.DR GT SCH (06:36)
[2023-02-06] MEDS: GABAPENTIN 300 MG/6 ML GT SCH ×3 (06:36→20:38)
[2023-02-06 07:49] VITALS: TEMP 97.7
[2023-02-06] MEDS: OLOPATADINE 0.1% OPHT DROP 5 ML BOTTLE EACHEYE SCH ×2 (08:20→17:05)
[2023-02-06] MEDS: LORATADINE 10 MG TABLET GT SCH (08:21)
[2023-02-06] MEDS: FLUOXETINE HCL 40 MG CAPSULE GT SCH ×2 (08:21→12:34)
[2023-02-06] MEDS: DOCUSATE SODIUM 100 MG/10 ML LIQUID UDC GT SCH ×2 (08:21→20:38)
[2023-02-06] MEDS: POTASSIUM CHLORIDE 40 MEQ/15 ML LIQUID GT SCH (08:22)
[2023-02-06] MEDS: risperiDONE 0.25 MG TABLET GT SCH ×2 (08:23→17:05)
[2023-02-06] MEDS: FLUTICASONE PROP NASAL SPRAY 16 GM BOTTLE NS SCH (08:23)
[2023-02-06] MEDS: CHLORHEXIDINE GLUCONATE 15 ML MOUTHWASH MM SCH ×2 (08:23→17:06)
[2023-02-06] MEDS: ENOXAPARIN SODIUM 40 MG/0.4 ML DISP.SYRIN SQ SCH (08:24)
[2023-02-06] MEDS: DICLOFENAC SODIUM 100 GM GEL..GRAM. TP SCH ×2 (08:24→20:39)
[2023-02-06] MEDS: HYDROMORPHONE HCL 2 MG TABLET GT PRN ×3 (08:24→20:37)
[2023-02-06] MEDS: ZINC OXIDE TOP SCH ×2 (08:24→20:39)
[2023-02-06] MEDS: HYDROGEN PEROXIDE 3% 118 ML BOTTLE TP SCH ×2 (09:51→19:13)
[2023-02-06] MEDS: JEVITY 1.2 1000 ML LIQUID GT PRN (12:35)
[2023-02-06] MEDS: LORAZEPAM 1 MG TABLET GT PRN ×2 (12:47→21:43)
[2023-02-06 20:09] VITALS: TEMP 98
[2023-02-06] MEDS: hydrOXYzine HCL 25 MG TABLET GT SCH (20:38)
[2023-02-06] MEDS: MELATONIN 3 MG TABLET GT SCH (20:39)
[2023-02-07] MEDS: IPRATROPIUM BROMIDE 0.5 MG/2.5 ML NEBU NEB SCH ×4 (00:37→19:17)
[2023-02-07] MEDS: OMEPRAZOLE 20 MG CAPSULE.DR GT SCH (05:57)
[2023-02-07] MEDS: GABAPENTIN 300 MG/6 ML GT SCH ×3 (05:57→20:57)
[2023-02-07] MEDS: RILUZOLE 50 MG TAB GT SCH ×2 (05:57→17:19)
[2023-02-07 08:03] VITALS: TEMP 97.9
[2023-02-07] MEDS: OLOPATADINE 0.1% OPHT DROP 5 ML BOTTLE EACHEYE SCH ×2 (08:53→16:25)
[2023-02-07] MEDS: LORATADINE 10 MG TABLET GT SCH (08:53)
[2023-02-07] MEDS: DOCUSATE SODIUM 100 MG/10 ML LIQUID UDC GT SCH ×2 (08:53→20:57)
[2023-02-07] MEDS: risperiDONE 0.25 MG TABLET GT SCH ×2 (08:54→16:25)
[2023-02-07] MEDS: CHLORHEXIDINE GLUCONATE 15 ML MOUTHWASH MM SCH ×2 (08:54→16:25)
[2023-02-07] MEDS: FLUOXETINE HCL 40 MG CAPSULE GT SCH ×2 (08:54→13:00)
[2023-02-07] MEDS: FLUTICASONE PROP NASAL SPRAY 16 GM BOTTLE NS SCH (08:54)
[2023-02-07] MEDS: POTASSIUM CHLORIDE 40 MEQ/15 ML LIQUID GT SCH (08:54)
[2023-02-07] MEDS: DICLOFENAC SODIUM 100 GM GEL..GRAM. TP SCH ×2 (08:55→20:58)
[2023-02-07] MEDS: ZINC OXIDE TOP SCH ×2 (08:55→20:58)
[2023-02-07] MEDS: ENOXAPARIN SODIUM 40 MG/0.4 ML DISP.SYRIN SQ SCH (08:55)
[2023-02-07] MEDS: HYDROMORPHONE HCL 2 MG TABLET GT PRN ×3 (08:56→20:58)
[2023-02-07] MEDS: HYDROGEN PEROXIDE 3% 118 ML BOTTLE TP SCH ×2 (09:22→19:17)
[2023-02-07] MEDS: LORAZEPAM 1 MG TABLET GT PRN ×2 (12:04→20:58)
[2023-02-07] MEDS: JEVITY 1.2 1000 ML LIQUID GT PRN (12:05)
[2023-02-07 19:58] VITALS: TEMP 98
[2023-02-07] MEDS: MELATONIN 3 MG TABLET GT SCH (20:57)
[2023-02-07] MEDS: hydrOXYzine HCL 25 MG TABLET GT SCH (20:57)
[2023-02-08] MEDS: IPRATROPIUM BROMIDE 0.5 MG/2.5 ML NEBU NEB SCH ×4 (01:55→19:08)
[2023-02-08] MEDS: GABAPENTIN 300 MG/6 ML GT SCH ×3 (05:24→21:31)
[2023-02-08] MEDS: OMEPRAZOLE 20 MG CAPSULE.DR GT SCH (05:24)
[2023-02-08] MEDS: RILUZOLE 50 MG TAB GT SCH ×2 (05:24→18:41)
[2023-02-08] MEDS: JEVITY 1.2 1000 ML LIQUID GT PRN (05:24)
[2023-02-08 07:29] VITALS: TEMP 98.8
[2023-02-08] MEDS: HYDROGEN PEROXIDE 3% 118 ML BOTTLE TP SCH ×2 (09:29→19:08)
[2023-02-08] MEDS: risperiDONE 0.25 MG TABLET GT SCH ×2 (09:36→16:46)
[2023-02-08] MEDS: POTASSIUM CHLORIDE 40 MEQ/15 ML LIQUID GT SCH (09:36)
[2023-02-08] MEDS: LORATADINE 10 MG TABLET GT SCH (09:36)
[2023-02-08] MEDS: CHLORHEXIDINE GLUCONATE 15 ML MOUTHWASH MM SCH ×2 (09:36→17:00)
[2023-02-08] MEDS: DOCUSATE SODIUM 100 MG/10 ML LIQUID UDC GT SCH ×2 (09:36→21:31)
[2023-02-08] MEDS: OLOPATADINE 0.1% OPHT DROP 5 ML BOTTLE EACHEYE SCH ×2 (09:36→16:46)
[2023-02-08] MEDS: FLUOXETINE HCL 40 MG CAPSULE GT SCH ×2 (09:36→12:27)
[2023-02-08] MEDS: ZINC OXIDE TOP SCH ×2 (09:37→21:31)
[2023-02-08] MEDS: FLUTICASONE PROP NASAL SPRAY 16 GM BOTTLE NS SCH (09:37)
[2023-02-08] MEDS: DICLOFENAC SODIUM 100 GM GEL..GRAM. TP SCH ×2 (09:37→21:31)
[2023-02-08] MEDS: ENOXAPARIN SODIUM 40 MG/0.4 ML DISP.SYRIN SQ SCH (09:40)
[2023-02-08] MEDS: LORAZEPAM 1 MG TABLET GT PRN ×2 (12:28→20:00)
[2023-02-08] MEDS: HYDROMORPHONE HCL 2 MG TABLET GT PRN ×2 (16:45→21:33)
[2023-02-08 20:00] VITALS: TEMP 98.2
[2023-02-08] MEDS: hydrOXYzine HCL 25 MG TABLET GT SCH (21:31)
[2023-02-08] MEDS: MELATONIN 3 MG TABLET GT SCH (21:31)
[2023-02-09] MEDS: IPRATROPIUM BROMIDE 0.5 MG/2.5 ML NEBU NEB SCH ×4 (00:45→19:03)
[2023-02-09] MEDS: OMEPRAZOLE 20 MG CAPSULE.DR GT SCH (05:10)
[2023-02-09] MEDS: RILUZOLE 50 MG TAB GT SCH ×2 (05:10→17:21)
[2023-02-09] MEDS: GABAPENTIN 300 MG/6 ML GT SCH ×3 (05:10→20:43)
[2023-02-09] MEDS: HYDROGEN PEROXIDE 3% 118 ML BOTTLE TP SCH ×2 (07:09→20:57)
[2023-02-09 07:22] VITALS: TEMP 97.6
[2023-02-09] MEDS: OLOPATADINE 0.1% OPHT DROP 5 ML BOTTLE EACHEYE SCH ×2 (09:01→17:16)
[2023-02-09] MEDS: LORATADINE 10 MG TABLET GT SCH (09:01)
[2023-02-09] MEDS: DOCUSATE SODIUM 100 MG/10 ML LIQUID UDC GT SCH ×2 (09:02→20:43)
[2023-02-09] MEDS: FLUOXETINE HCL 40 MG CAPSULE GT SCH ×2 (09:02→12:31)
[2023-02-09] MEDS: POTASSIUM CHLORIDE 40 MEQ/15 ML LIQUID GT SCH (09:06)
[2023-02-09] MEDS: HYDROCODONE/APAP 5-325MG TABLET PO PRN (09:06)
[2023-02-09] MEDS: risperiDONE 0.25 MG TABLET GT SCH ×2 (09:08→17:16)
[2023-02-09] MEDS: CHLORHEXIDINE GLUCONATE 15 ML MOUTHWASH MM SCH ×2 (09:08→17:16)
[2023-02-09] MEDS: FLUTICASONE PROP NASAL SPRAY 16 GM BOTTLE NS SCH (09:09)
[2023-02-09] MEDS: ENOXAPARIN SODIUM 40 MG/0.4 ML DISP.SYRIN SQ SCH (09:11)
[2023-02-09] MEDS: ZINC OXIDE TOP SCH ×2 (09:11→20:44)
[2023-02-09] MEDS: DICLOFENAC SODIUM 100 GM GEL..GRAM. TP SCH ×2 (09:12→20:44)
[2023-02-09] MEDS: LORAZEPAM 1 MG TABLET GT PRN ×2 (12:30→20:30)
[2023-02-09] MEDS: ACETAMINOPHEN 650 MG/20 ML UDC- SA PATIENTS-PAIN ONLY GT PRN (12:36)
[2023-02-09] MEDS: HYDROMORPHONE HCL 4 MG TABLET GT PRN ×2 (17:20→22:30)
[2023-02-09 20:00] VITALS: TEMP 99
[2023-02-09] MEDS: hydrOXYzine HCL 25 MG TABLET GT SCH (20:43)
[2023-02-09] MEDS: MELATONIN 3 MG TABLET GT SCH (20:43)
[2023-02-10] MEDS: IPRATROPIUM BROMIDE 0.5 MG/2.5 ML NEBU NEB SCH ×4 (01:08→20:07)
[2023-02-10] MEDS: JEVITY 1.2 1000 ML LIQUID GT PRN (05:00)
[2023-02-10] MEDS: OMEPRAZOLE 20 MG CAPSULE.DR GT SCH (05:24)
[2023-02-10] MEDS: GABAPENTIN 300 MG/6 ML GT SCH ×3 (05:24→20:27)
[2023-02-10] MEDS: RILUZOLE 50 MG TAB GT SCH ×2 (05:24→17:16)
[2023-02-10 07:55] VITALS: TEMP 98.7
[2023-02-10] MEDS: HYDROGEN PEROXIDE 3% 118 ML BOTTLE TP SCH ×2 (08:04→20:07)
[2023-02-10] MEDS: CHLORHEXIDINE GLUCONATE 15 ML MOUTHWASH MM SCH ×2 (08:24→16:12)
[2023-02-10] MEDS: DOCUSATE SODIUM 100 MG/10 ML LIQUID UDC GT SCH ×2 (08:24→20:27)
[2023-02-10] MEDS: POTASSIUM CHLORIDE 40 MEQ/15 ML LIQUID GT SCH (08:24)
[2023-02-10] MEDS: risperiDONE 0.25 MG TABLET GT SCH ×2 (08:24→16:12)
[2023-02-10] MEDS: FLUOXETINE HCL 40 MG CAPSULE GT SCH ×2 (08:24→12:13)
[2023-02-10] MEDS: OLOPATADINE 0.1% OPHT DROP 5 ML BOTTLE EACHEYE SCH ×2 (08:24→16:11)
[2023-02-10] MEDS: LORATADINE 10 MG TABLET GT SCH (08:24)
[2023-02-10] MEDS: FLUTICASONE PROP NASAL SPRAY 16 GM BOTTLE NS SCH (08:25)
[2023-02-10] MEDS: HYDROCODONE/APAP 5-325MG TABLET PO PRN (08:28)
[2023-02-10] MEDS: ENOXAPARIN SODIUM 40 MG/0.4 ML DISP.SYRIN SQ SCH (08:29)
[2023-02-10] MEDS: ZINC OXIDE TOP SCH ×2 (08:30→20:27)
[2023-02-10] MEDS: DICLOFENAC SODIUM 100 GM GEL..GRAM. TP SCH ×2 (08:30→20:27)
[2023-02-10] MEDS: LORAZEPAM 1 MG TABLET GT PRN ×2 (12:14→20:28)
[2023-02-10] MEDS: ACETAMINOPHEN 650 MG/20 ML UDC- SA PATIENTS-PAIN ONLY GT PRN (12:14)
[2023-02-10] MEDS: HYDROMORPHONE HCL 4 MG TABLET GT PRN ×2 (16:15→23:00)
[2023-02-10 20:00] VITALS: TEMP 99
[2023-02-10] MEDS: hydrOXYzine HCL 25 MG TABLET GT SCH (20:26)
[2023-02-10] MEDS: MELATONIN 3 MG TABLET GT SCH (20:27)
[2023-02-11] MEDS: IPRATROPIUM BROMIDE 0.5 MG/2.5 ML NEBU NEB SCH ×4 (01:40→19:12)
[2023-02-11] MEDS: GABAPENTIN 300 MG/6 ML GT SCH ×3 (05:29→20:43)
[2023-02-11] MEDS: RILUZOLE 50 MG TAB GT SCH ×2 (05:29→17:25)
[2023-02-11] MEDS: OMEPRAZOLE 20 MG CAPSULE.DR GT SCH (05:29)
[2023-02-11] MEDS: JEVITY 1.2 1000 ML LIQUID GT PRN (05:29)
[2023-02-11 07:52] VITALS: TEMP 98.6
[2023-02-11] MEDS: HYDROGEN PEROXIDE 3% 118 ML BOTTLE TP SCH ×2 (08:08→19:12)
[2023-02-11] MEDS: OLOPATADINE 0.1% OPHT DROP 5 ML BOTTLE EACHEYE SCH ×2 (09:05→17:24)
[2023-02-11] MEDS: LORATADINE 10 MG TABLET GT SCH (09:05)
[2023-02-11] MEDS: DOCUSATE SODIUM 100 MG/10 ML LIQUID UDC GT SCH ×2 (09:08→20:43)
[2023-02-11] MEDS: POTASSIUM CHLORIDE 40 MEQ/15 ML LIQUID GT SCH (09:09)
[2023-02-11] MEDS: FLUOXETINE HCL 40 MG CAPSULE GT SCH ×2 (09:09→12:21)
[2023-02-11] MEDS: risperiDONE 0.25 MG TABLET GT SCH ×2 (09:09→17:25)
[2023-02-11] MEDS: CHLORHEXIDINE GLUCONATE 15 ML MOUTHWASH MM SCH ×2 (09:10→17:25)
[2023-02-11] MEDS: ENOXAPARIN SODIUM 40 MG/0.4 ML DISP.SYRIN SQ SCH (09:10)
[2023-02-11] MEDS: FLUTICASONE PROP NASAL SPRAY 16 GM BOTTLE NS SCH (09:10)
[2023-02-11] MEDS: DICLOFENAC SODIUM 100 GM GEL..GRAM. TP SCH ×2 (09:11→20:43)
[2023-02-11] MEDS: ZINC OXIDE TOP SCH ×2 (09:11→20:43)
[2023-02-11] MEDS: HYDROMORPHONE HCL 4 MG TABLET GT PRN ×3 (09:11→22:45)
[2023-02-11] MEDS: LORAZEPAM 1 MG TABLET GT PRN ×2 (12:19→20:44)
[2023-02-11 19:47] VITALS: TEMP 99.3
[2023-02-11] MEDS: MELATONIN 3 MG TABLET GT SCH (20:43)
[2023-02-11] MEDS: hydrOXYzine HCL 25 MG TABLET GT SCH (20:43)
[2023-02-12] MEDS: IPRATROPIUM BROMIDE 0.5 MG/2.5 ML NEBU NEB SCH ×4 (01:26→19:10)
[2023-02-12] MEDS: RILUZOLE 50 MG TAB GT SCH ×2 (05:07→18:26)
[2023-02-12] MEDS: OMEPRAZOLE 20 MG CAPSULE.DR GT SCH (05:07)
[2023-02-12] MEDS: GABAPENTIN 300 MG/6 ML GT SCH ×3 (05:07→21:14)
[2023-02-12 07:52] VITALS: TEMP 96.4
[2023-02-12] MEDS: HYDROGEN PEROXIDE 3% 118 ML BOTTLE TP SCH ×2 (08:32→19:10)
[2023-02-12] MEDS: LORATADINE 10 MG TABLET GT SCH (09:50)
[2023-02-12] MEDS: DOCUSATE SODIUM 100 MG/10 ML LIQUID UDC GT SCH ×2 (09:50→21:14)
[2023-02-12] MEDS: OLOPATADINE 0.1% OPHT DROP 5 ML BOTTLE EACHEYE SCH ×2 (09:50→17:22)
[2023-02-12] MEDS: FLUOXETINE HCL 40 MG CAPSULE GT SCH ×2 (09:51→12:48)
[2023-02-12] MEDS: POTASSIUM CHLORIDE 40 MEQ/15 ML LIQUID GT SCH (09:56)
[2023-02-12] MEDS: CHLORHEXIDINE GLUCONATE 15 ML MOUTHWASH MM SCH ×2 (09:56→17:22)
[2023-02-12] MEDS: risperiDONE 0.25 MG TABLET GT SCH ×2 (09:56→17:22)
[2023-02-12] MEDS: ZINC OXIDE TOP SCH ×2 (09:57→21:15)
[2023-02-12] MEDS: FLUTICASONE PROP NASAL SPRAY 16 GM BOTTLE NS SCH (09:57)
[2023-02-12] MEDS: DICLOFENAC SODIUM 100 GM GEL..GRAM. TP SCH ×2 (09:57→21:16)
[2023-02-12] MEDS: ENOXAPARIN SODIUM 40 MG/0.4 ML DISP.SYRIN SQ SCH (09:59)
[2023-02-12] MEDS: HYDROMORPHONE HCL 4 MG TABLET GT PRN ×3 (10:01→22:00)
[2023-02-12] MEDS: JEVITY 1.2 1000 ML LIQUID GT PRN (10:14)
[2023-02-12] MEDS: LORAZEPAM 1 MG TABLET GT PRN ×2 (12:47→21:17)
[2023-02-12] MEDS: ACETAMINOPHEN 650 MG/20 ML UDC- SA PATIENTS-PAIN ONLY GT PRN (14:09)
[2023-02-12 20:00] VITALS: TEMP 98.8
[2023-02-12] MEDS: hydrOXYzine HCL 25 MG TABLET GT SCH (21:14)
[2023-02-12] MEDS: MELATONIN 3 MG TABLET GT SCH (21:15)
[2023-02-13] MEDS: IPRATROPIUM BROMIDE 0.5 MG/2.5 ML NEBU NEB SCH ×4 (01:01→19:30)
[2023-02-13] MEDS: JEVITY 1.2 1000 ML LIQUID GT PRN (05:00)
[2023-02-13] MEDS: OMEPRAZOLE 20 MG CAPSULE.DR GT SCH (06:01)
[2023-02-13] MEDS: RILUZOLE 50 MG TAB GT SCH ×2 (06:01→18:06)
[2023-02-13] MEDS: GABAPENTIN 300 MG/6 ML GT SCH ×3 (06:01→20:22)
[2023-02-13 08:00] VITALS: TEMP 98
[2023-02-13] MEDS: DOCUSATE SODIUM 100 MG/10 ML LIQUID UDC GT SCH ×2 (08:42→20:05)
[2023-02-13] MEDS: LORATADINE 10 MG TABLET GT SCH (08:42)
[2023-02-13] MEDS: OLOPATADINE 0.1% OPHT DROP 5 ML BOTTLE EACHEYE SCH ×2 (08:42→17:29)
[2023-02-13] MEDS: FLUOXETINE HCL 40 MG CAPSULE GT SCH ×2 (08:43→13:36)
[2023-02-13] MEDS: POTASSIUM CHLORIDE 40 MEQ/15 ML LIQUID GT SCH (08:43)
[2023-02-13] MEDS: CHLORHEXIDINE GLUCONATE 15 ML MOUTHWASH MM SCH ×2 (08:45→17:29)
[2023-02-13] MEDS: ZINC OXIDE TOP SCH ×2 (08:45→20:08)
[2023-02-13] MEDS: FLUTICASONE PROP NASAL SPRAY 16 GM BOTTLE NS SCH (08:45)
[2023-02-13] MEDS: DICLOFENAC SODIUM 100 GM GEL..GRAM. TP SCH ×2 (08:45→20:08)
[2023-02-13] MEDS: risperiDONE 0.25 MG TABLET GT SCH ×2 (08:45→17:29)
[2023-02-13] MEDS: ENOXAPARIN SODIUM 40 MG/0.4 ML DISP.SYRIN SQ SCH (08:48)
[2023-02-13] MEDS: HYDROMORPHONE HCL 4 MG TABLET GT PRN ×3 (08:56→18:06)
[2023-02-13] MEDS: HYDROGEN PEROXIDE 3% 118 ML BOTTLE TP SCH ×2 (09:55→21:12)
[2023-02-13 20:00] VITALS: TEMP 98.8
[2023-02-13] MEDS: hydrOXYzine HCL 25 MG TABLET GT SCH (20:05)
[2023-02-13] MEDS: ACETAMINOPHEN 650 MG/20 ML UDC- SA PATIENTS-PAIN ONLY GT PRN (20:06)
[2023-02-13] MEDS: MELATONIN 3 MG TABLET GT SCH (20:07)
[2023-02-13] MEDS: LORAZEPAM 1 MG TABLET GT PRN (20:22)
[2023-02-14] MEDS: IPRATROPIUM BROMIDE 0.5 MG/2.5 ML NEBU NEB SCH ×4 (01:44→19:08)
[2023-02-14] MEDS: RILUZOLE 50 MG TAB GT SCH ×2 (05:32→18:02)
[2023-02-14] MEDS: JEVITY 1.2 1000 ML LIQUID GT PRN (05:32)
[2023-02-14] MEDS: OMEPRAZOLE 20 MG CAPSULE.DR GT SCH (05:32)
[2023-02-14] MEDS: GABAPENTIN 300 MG/6 ML GT SCH ×3 (05:32→20:09)
[2023-02-14] MEDS: MAGNESIUM HYDROXIDE 30 ML LIQUID UDC GT PRN (05:32)
[2023-02-14 08:00] VITALS: TEMP 98.4
[2023-02-14] MEDS: HYDROGEN PEROXIDE 3% 118 ML BOTTLE TP SCH ×2 (08:47→19:08)
[2023-02-14] MEDS: DOCUSATE SODIUM 100 MG/10 ML LIQUID UDC GT SCH ×2 (08:57→20:02)
[2023-02-14] MEDS: LORATADINE 10 MG TABLET GT SCH (08:57)
[2023-02-14] MEDS: OLOPATADINE 0.1% OPHT DROP 5 ML BOTTLE EACHEYE SCH ×2 (08:57→17:00)
[2023-02-14] MEDS: FLUOXETINE HCL 40 MG CAPSULE GT SCH ×2 (08:58→13:06)
[2023-02-14] MEDS: risperiDONE 0.25 MG TABLET GT SCH ×2 (08:59→17:00)
[2023-02-14] MEDS: CHLORHEXIDINE GLUCONATE 15 ML MOUTHWASH MM SCH ×2 (08:59→17:00)
[2023-02-14] MEDS: DICLOFENAC SODIUM 100 GM GEL..GRAM. TP SCH ×2 (09:00→20:09)
[2023-02-14] MEDS: POTASSIUM CHLORIDE 40 MEQ/15 ML LIQUID GT SCH (09:00)
[2023-02-14] MEDS: FLUTICASONE PROP NASAL SPRAY 16 GM BOTTLE NS SCH (09:00)
[2023-02-14] MEDS: ZINC OXIDE TOP SCH ×2 (09:00→20:09)
[2023-02-14] MEDS: ENOXAPARIN SODIUM 40 MG/0.4 ML DISP.SYRIN SQ SCH (09:02)
[2023-02-14] MEDS: HYDROMORPHONE HCL 4 MG TABLET GT PRN ×2 (10:09→20:09)
[2023-02-14] MEDS: LORAZEPAM 1 MG TABLET GT PRN ×2 (13:06→21:43)
[2023-02-14 20:00] VITALS: TEMP 98.8
[2023-02-14] MEDS: MELATONIN 3 MG TABLET GT SCH (20:02)
[2023-02-14] MEDS: hydrOXYzine HCL 25 MG TABLET GT SCH (20:02)
[2023-02-15] MEDS: IPRATROPIUM BROMIDE 0.5 MG/2.5 ML NEBU NEB SCH ×4 (02:07→19:08)
[2023-02-15] MEDS: ACETAMINOPHEN 650 MG/20 ML UDC- SA PATIENTS-PAIN ONLY GT PRN ×3 (02:17→20:29)
[2023-02-15] MEDS: JEVITY 1.2 1000 ML LIQUID GT PRN (02:18)
[2023-02-15] MEDS: OMEPRAZOLE 20 MG CAPSULE.DR GT SCH (05:31)
[2023-02-15] MEDS: RILUZOLE 50 MG TAB GT SCH ×2 (05:31→17:59)
[2023-02-15] MEDS: GABAPENTIN 300 MG/6 ML GT SCH ×3 (05:31→20:27)
[2023-02-15] MEDS: HYDROGEN PEROXIDE 3% 118 ML BOTTLE TP SCH ×2 (07:19→19:08)
[2023-02-15 08:49] VITALS: TEMP 98
[2023-02-15] MEDS: DOCUSATE SODIUM 100 MG/10 ML LIQUID UDC GT SCH ×2 (09:00→20:27)
[2023-02-15] MEDS: risperiDONE 0.25 MG TABLET GT SCH ×2 (09:00→17:58)
[2023-02-15] MEDS: FLUOXETINE HCL 40 MG CAPSULE GT SCH ×2 (09:00→13:00)
[2023-02-15] MEDS: FLUTICASONE PROP NASAL SPRAY 16 GM BOTTLE NS SCH (09:00)
[2023-02-15] MEDS: ENOXAPARIN SODIUM 40 MG/0.4 ML DISP.SYRIN SQ SCH (09:00)
[2023-02-15] MEDS: LORATADINE 10 MG TABLET GT SCH (09:00)
[2023-02-15] MEDS: DICLOFENAC SODIUM 100 GM GEL..GRAM. TP SCH ×2 (09:00→20:27)
[2023-02-15] MEDS: ZINC OXIDE TOP SCH ×2 (09:00→20:27)
[2023-02-15] MEDS: POTASSIUM CHLORIDE 40 MEQ/15 ML LIQUID GT SCH (09:00)
[2023-02-15] MEDS: OLOPATADINE 0.1% OPHT DROP 5 ML BOTTLE EACHEYE SCH ×2 (09:00→17:57)
[2023-02-15] MEDS: CHLORHEXIDINE GLUCONATE 15 ML MOUTHWASH MM SCH ×2 (09:00→17:58)
[2023-02-15] MEDS: HYDROMORPHONE HCL 4 MG TABLET GT PRN ×2 (10:40→18:09)
[2023-02-15] MEDS: LORAZEPAM 1 MG TABLET GT PRN ×2 (14:35→20:28)
[2023-02-15 19:58] VITALS: TEMP 99.1
[2023-02-15] MEDS: hydrOXYzine HCL 25 MG TABLET GT SCH (20:27)
[2023-02-15] MEDS: MELATONIN 3 MG TABLET GT SCH (20:27)
[2023-02-16] MEDS: IPRATROPIUM BROMIDE 0.5 MG/2.5 ML NEBU NEB SCH ×4 (00:41→19:24)
[2023-02-16] MEDS: GABAPENTIN 300 MG/6 ML GT SCH ×3 (05:03→20:31)
[2023-02-16] MEDS: OMEPRAZOLE 20 MG CAPSULE.DR GT SCH (05:03)
[2023-02-16] MEDS: RILUZOLE 50 MG TAB GT SCH ×2 (05:04→17:39)
[2023-02-16] MEDS: JEVITY 1.2 1000 ML LIQUID GT PRN (05:05)
[2023-02-16 08:00] VITALS: TEMP 98.4
[2023-02-16] MEDS: HYDROGEN PEROXIDE 3% 118 ML BOTTLE TP SCH ×2 (08:32→19:24)
[2023-02-16] MEDS: FLUOXETINE HCL 40 MG CAPSULE GT SCH ×2 (09:00→13:35)
[2023-02-16] MEDS: FLUTICASONE PROP NASAL SPRAY 16 GM BOTTLE NS SCH (09:00)
[2023-02-16] MEDS: POTASSIUM CHLORIDE 40 MEQ/15 ML LIQUID GT SCH (09:00)
[2023-02-16] MEDS: CHLORHEXIDINE GLUCONATE 15 ML MOUTHWASH MM SCH ×2 (09:00→17:39)
[2023-02-16] MEDS: risperiDONE 0.25 MG TABLET GT SCH ×2 (09:00→17:39)
[2023-02-16] MEDS: DOCUSATE SODIUM 100 MG/10 ML LIQUID UDC GT SCH ×2 (09:00→20:31)
[2023-02-16] MEDS: ZINC OXIDE TOP SCH ×2 (09:00→20:32)
[2023-02-16] MEDS: DICLOFENAC SODIUM 100 GM GEL..GRAM. TP SCH ×2 (09:00→20:32)
[2023-02-16] MEDS: ENOXAPARIN SODIUM 40 MG/0.4 ML DISP.SYRIN SQ SCH (09:00)
[2023-02-16] MEDS: OLOPATADINE 0.1% OPHT DROP 5 ML BOTTLE EACHEYE SCH ×2 (09:56→17:39)
[2023-02-16] MEDS: LORATADINE 10 MG TABLET GT SCH (09:56)
[2023-02-16] MEDS: HYDROMORPHONE HCL 4 MG TABLET GT PRN ×2 (10:13→17:40)
[2023-02-16] MEDS: LORAZEPAM 1 MG TABLET GT PRN ×2 (13:34→20:32)
[2023-02-16] MEDS: ACETAMINOPHEN 650 MG/20 ML UDC- SA PATIENTS-PAIN ONLY GT PRN ×2 (13:46→20:33)
[2023-02-16 20:00] VITALS: TEMP 98.6
[2023-02-16] MEDS: hydrOXYzine HCL 25 MG TABLET GT SCH (20:31)
[2023-02-16] MEDS: MELATONIN 3 MG TABLET GT SCH (20:31)
[2023-02-16] MEDS: POLYVINYL ALCOHOL OPHT DROPS 15 ML BOTTLE EACHEYE PRN (20:32)
[2023-02-17] MEDS: IPRATROPIUM BROMIDE 0.5 MG/2.5 ML NEBU NEB SCH ×4 (00:40→19:09)
[2023-02-17] MEDS: RILUZOLE 50 MG TAB GT SCH ×2 (05:26→17:42)
[2023-02-17] MEDS: OMEPRAZOLE 20 MG CAPSULE.DR GT SCH (05:26)
[2023-02-17] MEDS: GABAPENTIN 300 MG/6 ML GT SCH ×3 (05:26→20:31)
[2023-02-17] MEDS: JEVITY 1.2 1000 ML LIQUID GT PRN (05:58)
[2023-02-17] MEDS: HYDROGEN PEROXIDE 3% 118 ML BOTTLE TP SCH ×2 (07:32→19:09)
[2023-02-17 07:47] VITALS: TEMP 98.2
[2023-02-17] MEDS: POTASSIUM CHLORIDE 40 MEQ/15 ML LIQUID GT SCH (09:00)
[2023-02-17] MEDS: DOCUSATE SODIUM 100 MG/10 ML LIQUID UDC GT SCH ×2 (09:00→20:30)
[2023-02-17] MEDS: FLUTICASONE PROP NASAL SPRAY 16 GM BOTTLE NS SCH (09:00)
[2023-02-17] MEDS: DICLOFENAC SODIUM 100 GM GEL..GRAM. TP SCH ×2 (09:00→20:32)
[2023-02-17] MEDS: LORATADINE 10 MG TABLET GT SCH (09:00)
[2023-02-17] MEDS: CHLORHEXIDINE GLUCONATE 15 ML MOUTHWASH MM SCH ×2 (09:00→17:42)
[2023-02-17] MEDS: risperiDONE 0.25 MG TABLET GT SCH ×2 (09:00→17:00)
[2023-02-17] MEDS: ENOXAPARIN SODIUM 40 MG/0.4 ML DISP.SYRIN SQ SCH (09:00)
[2023-02-17] MEDS: ZINC OXIDE TOP SCH ×2 (09:00→20:31)
[2023-02-17] MEDS: OLOPATADINE 0.1% OPHT DROP 5 ML BOTTLE EACHEYE SCH ×2 (09:00→17:37)
[2023-02-17] MEDS: FLUOXETINE HCL 40 MG CAPSULE GT SCH ×2 (09:00→13:36)
[2023-02-17] MEDS: HYDROMORPHONE HCL 4 MG TABLET GT PRN ×2 (10:49→17:40)
[2023-02-17] MEDS: LORAZEPAM 1 MG TABLET GT PRN ×2 (13:44→21:00)
[2023-02-17 20:00] VITALS: TEMP 97.8
[2023-02-17] MEDS: hydrOXYzine HCL 25 MG TABLET GT SCH (20:30)
[2023-02-17] MEDS: MELATONIN 3 MG TABLET GT SCH (20:31)
[2023-02-17] MEDS: ACETAMINOPHEN 650 MG/20 ML UDC- SA PATIENTS-PAIN ONLY GT PRN (20:34)
[2023-02-18] MEDS: IPRATROPIUM BROMIDE 0.5 MG/2.5 ML NEBU NEB SCH ×4 (00:41→19:04)
[2023-02-18] MEDS: GABAPENTIN 300 MG/6 ML GT SCH ×3 (05:28→20:13)
[2023-02-18] MEDS: RILUZOLE 50 MG TAB GT SCH ×2 (05:28→18:02)
[2023-02-18] MEDS: OMEPRAZOLE 20 MG CAPSULE.DR GT SCH (05:28)
[2023-02-18] MEDS: HYDROGEN PEROXIDE 3% 118 ML BOTTLE TP SCH ×2 (07:27→21:02)
[2023-02-18 07:52] VITALS: TEMP 98.1
[2023-02-18] MEDS: DOCUSATE SODIUM 100 MG/10 ML LIQUID UDC GT SCH ×2 (09:42→20:13)
[2023-02-18] MEDS: OLOPATADINE 0.1% OPHT DROP 5 ML BOTTLE EACHEYE SCH ×2 (09:42→17:13)
[2023-02-18] MEDS: LORATADINE 10 MG TABLET GT SCH (09:42)
[2023-02-18] MEDS: FLUOXETINE HCL 40 MG CAPSULE GT SCH ×2 (09:43→13:46)
[2023-02-18] MEDS: POTASSIUM CHLORIDE 40 MEQ/15 ML LIQUID GT SCH (09:44)
[2023-02-18] MEDS: FLUTICASONE PROP NASAL SPRAY 16 GM BOTTLE NS SCH (09:45)
[2023-02-18] MEDS: CHLORHEXIDINE GLUCONATE 15 ML MOUTHWASH MM SCH ×2 (09:45→17:13)
[2023-02-18] MEDS: risperiDONE 0.25 MG TABLET GT SCH ×2 (09:45→17:13)
[2023-02-18] MEDS: DICLOFENAC SODIUM 100 GM GEL..GRAM. TP SCH ×2 (09:46→20:13)
[2023-02-18] MEDS: ZINC OXIDE TOP SCH ×2 (09:46→20:13)
[2023-02-18] MEDS: ENOXAPARIN SODIUM 40 MG/0.4 ML DISP.SYRIN SQ SCH (09:48)
[2023-02-18] MEDS: HYDROMORPHONE HCL 4 MG TABLET GT PRN ×2 (09:51→18:08)
[2023-02-18] MEDS: LORAZEPAM 1 MG TABLET GT PRN ×2 (13:46→20:14)
[2023-02-18 20:00] VITALS: TEMP 98.7
[2023-02-18] MEDS: MELATONIN 3 MG TABLET GT SCH (20:13)
[2023-02-18] MEDS: hydrOXYzine HCL 25 MG TABLET GT SCH (20:13)
[2023-02-18] MEDS: ACETAMINOPHEN 650 MG/20 ML UDC- SA PATIENTS-PAIN ONLY GT PRN (20:14)
[2023-02-19] MEDS: IPRATROPIUM BROMIDE 0.5 MG/2.5 ML NEBU NEB SCH ×4 (01:12→19:18)
[2023-02-19] MEDS: OMEPRAZOLE 20 MG CAPSULE.DR GT SCH (05:20)
[2023-02-19] MEDS: GABAPENTIN 300 MG/6 ML GT SCH ×3 (05:20→21:49)
[2023-02-19] MEDS: RILUZOLE 50 MG TAB GT SCH ×2 (05:20→18:04)
[2023-02-19] MEDS: ACETAMINOPHEN 650 MG/20 ML UDC- SA PATIENTS-PAIN ONLY GT PRN ×3 (05:21→21:50)
[2023-02-19 08:00] VITALS: TEMP 98.7
[2023-02-19] MEDS: HYDROGEN PEROXIDE 3% 118 ML BOTTLE TP SCH ×2 (08:16→19:18)
[2023-02-19] MEDS: DOCUSATE SODIUM 100 MG/10 ML LIQUID UDC GT SCH ×2 (09:58→21:49)
[2023-02-19] MEDS: FLUOXETINE HCL 40 MG CAPSULE GT SCH ×2 (09:58→13:51)
[2023-02-19] MEDS: CHLORHEXIDINE GLUCONATE 15 ML MOUTHWASH MM SCH ×2 (09:58→16:58)
[2023-02-19] MEDS: risperiDONE 0.25 MG TABLET GT SCH ×2 (09:58→16:58)
[2023-02-19] MEDS: LORATADINE 10 MG TABLET GT SCH (09:58)
[2023-02-19] MEDS: OLOPATADINE 0.1% OPHT DROP 5 ML BOTTLE EACHEYE SCH ×2 (09:58→16:58)
[2023-02-19] MEDS: DICLOFENAC SODIUM 100 GM GEL..GRAM. TP SCH ×2 (09:58→21:49)
[2023-02-19] MEDS: ZINC OXIDE TOP SCH ×2 (09:58→21:49)
[2023-02-19] MEDS: POTASSIUM CHLORIDE 40 MEQ/15 ML LIQUID GT SCH (09:58)
[2023-02-19] MEDS: FLUTICASONE PROP NASAL SPRAY 16 GM BOTTLE NS SCH (09:58)
[2023-02-19] MEDS: ENOXAPARIN SODIUM 40 MG/0.4 ML DISP.SYRIN SQ SCH (10:00)
[2023-02-19] MEDS: HYDROMORPHONE HCL 4 MG TABLET GT PRN ×2 (10:06→18:02)
[2023-02-19] MEDS: LORAZEPAM 1 MG TABLET GT PRN ×2 (14:04→20:45)
[2023-02-19 20:00] VITALS: TEMP 98.4
[2023-02-19] MEDS: MELATONIN 3 MG TABLET GT SCH (21:49)
[2023-02-19] MEDS: hydrOXYzine HCL 25 MG TABLET GT SCH (21:49)
[2023-02-20] MEDS: IPRATROPIUM BROMIDE 0.5 MG/2.5 ML NEBU NEB SCH ×4 (01:13→19:09)
[2023-02-20] MEDS: OMEPRAZOLE 20 MG CAPSULE.DR GT SCH (06:41)
[2023-02-20] MEDS: RILUZOLE 50 MG TAB GT SCH ×2 (06:41→17:53)
[2023-02-20] MEDS: GABAPENTIN 300 MG/6 ML GT SCH ×3 (06:41→21:39)
[2023-02-20 07:29] VITALS: TEMP 97.1
[2023-02-20] MEDS: HYDROGEN PEROXIDE 3% 118 ML BOTTLE TP SCH ×2 (07:54→19:09)
[2023-02-20] MEDS: LORATADINE 10 MG TABLET GT SCH (09:50)
[2023-02-20] MEDS: OLOPATADINE 0.1% OPHT DROP 5 ML BOTTLE EACHEYE SCH ×2 (09:50→17:21)
[2023-02-20] MEDS: FLUOXETINE HCL 40 MG CAPSULE GT SCH ×2 (09:51→12:47)
[2023-02-20] MEDS: DOCUSATE SODIUM 100 MG/10 ML LIQUID UDC GT SCH ×2 (09:51→21:38)
[2023-02-20] MEDS: risperiDONE 0.25 MG TABLET GT SCH ×2 (09:51→17:21)
[2023-02-20] MEDS: POTASSIUM CHLORIDE 40 MEQ/15 ML LIQUID GT SCH (09:52)
[2023-02-20] MEDS: CHLORHEXIDINE GLUCONATE 15 ML MOUTHWASH MM SCH ×2 (09:53→17:21)
[2023-02-20] MEDS: DICLOFENAC SODIUM 100 GM GEL..GRAM. TP SCH ×2 (09:54→21:39)
[2023-02-20] MEDS: ZINC OXIDE TOP SCH ×2 (09:54→21:39)
[2023-02-20] MEDS: FLUTICASONE PROP NASAL SPRAY 16 GM BOTTLE NS SCH (09:54)
[2023-02-20] MEDS: ENOXAPARIN SODIUM 40 MG/0.4 ML DISP.SYRIN SQ SCH (09:56)
[2023-02-20] MEDS: HYDROMORPHONE HCL 4 MG TABLET GT PRN ×2 (10:03→17:57)
[2023-02-20] MEDS: LORAZEPAM 1 MG TABLET GT PRN ×2 (12:49→20:30)
[2023-02-20] MEDS: JEVITY 1.2 1000 ML LIQUID GT PRN (15:42)
[2023-02-20 20:49] VITALS: TEMP 98
[2023-02-20] MEDS: hydrOXYzine HCL 25 MG TABLET GT SCH (21:38)
[2023-02-20] MEDS: MELATONIN 3 MG TABLET GT SCH (21:39)
[2023-02-21] MEDS: IPRATROPIUM BROMIDE 0.5 MG/2.5 ML NEBU NEB SCH ×4 (00:47→19:12)
[2023-02-21] MEDS: RILUZOLE 50 MG TAB GT SCH ×2 (06:27→18:01)
[2023-02-21] MEDS: OMEPRAZOLE 20 MG CAPSULE.DR GT SCH (06:27)
[2023-02-21] MEDS: GABAPENTIN 300 MG/6 ML GT SCH ×3 (06:27→21:43)
[2023-02-21] MEDS: HYDROGEN PEROXIDE 3% 118 ML BOTTLE TP SCH ×2 (07:28→19:12)
[2023-02-21 07:30] VITALS: TEMP 97.3
[2023-02-21 07:43] LABS: BASOPHILS % (AUTO) 0.2 % (0.0-2.0); EOSINOPHILS # (AUTO) 0.2 K/uL (0.0-0.7); EOSINOPHILS % (AUTO) 2.1 % (0.0-7.0); HEMATOCRIT 31.7 % (31.2-41.9); HEMOGLOBIN 10.5 g/dL (10.9-14.3); LYMPHOCYTES # (AUTO) 1.1 K/uL (0.8-4.8); LYMPHOCYTES % (AUTO) 14.4 % (20.5-51.5); MEAN CORPUSCULAR HEMOGLOBIN 31.3 uug (24.7-32.8); MEAN CORPUSCULAR HGB CONC 33 g/dL (32.3-35.6); MEAN CORPUSCULAR VOLUME 94.6 fL (75.5-95.3); MONOCYTES # (AUTO) 0.5 K/uL (0.1-1.30); MONOCYTES % (AUTO) 6.9 % (0.0-11.0); NEUTROPHILS # (AUTO) 5.8 K/uL (1.8-8.9); NEUTROPHILS % (AUTO) 76.4 % (38.5-71.5); PLATELET COUNT (AUTO) 194 K/uL (179-408); RED BLOOD CELL COUNT(AUTO) 3.35 MIL/uL (3.63-4.92); RED CELL DISTRIBUTION WIDTH 13.5 % (12.3-17.7); WHITE BLOOD COUNT (AUTO) 7.6 K/uL (3.8-11.8)
[2023-02-21 07:46] LABS: DIFFERENTIAL COMMENT 1
[2023-02-21 08:03] LABS: ALANINE AMINOTRANSFERASE 28 U/L (14-59); ALBUMIN 2.9 g/dL (3.4-5.0); ALKALINE PHOSPHATASE 95 U/L (50-136); ASPARTATE AMINOTRANSFERASE 13 U/L (15-37); BILIRUBIN,TOTAL 0.3 mg/dL (0.2-1.0); CALCIUM 8.8 mg/dL (8.5-10.1); CARBON DIOXIDE 30 mmol/L (21-32); CHLORIDE 100 mmol/L (98-107); CREATININE 0.2 mg/dL (0.6-1.3); GLUCOSE 94 mg/dL (74-106); MAGNESIUM 2.1 mg/dL (1.8-2.4); PHOSPHOROUS 4.9 mg/dL (2.5-4.9); POTASSIUM 4.1 mmol/L (3.5-5.1); SODIUM SERUM 137 mmol/L (136-145); TOTAL PROTEIN, SERUM 6.8 g/dL (6.4-8.2); UREA NITROGEN, BLOOD 12 mg/dL (7-18)
[2023-02-21] MEDS: OLOPATADINE 0.1% OPHT DROP 5 ML BOTTLE EACHEYE SCH ×2 (09:15→17:15)
[2023-02-21] MEDS: LORATADINE 10 MG TABLET GT SCH (09:15)
[2023-02-21] MEDS: DOCUSATE SODIUM 100 MG/10 ML LIQUID UDC GT SCH ×2 (09:15→21:43)
[2023-02-21] MEDS: FLUOXETINE HCL 40 MG CAPSULE GT SCH ×2 (09:16→13:51)
[2023-02-21] MEDS: FLUTICASONE PROP NASAL SPRAY 16 GM BOTTLE NS SCH (09:16)
[2023-02-21] MEDS: CHLORHEXIDINE GLUCONATE 15 ML MOUTHWASH MM SCH ×2 (09:16→17:15)
[2023-02-21] MEDS: risperiDONE 0.25 MG TABLET GT SCH ×2 (09:16→17:15)
[2023-02-21] MEDS: POTASSIUM CHLORIDE 40 MEQ/15 ML LIQUID GT SCH (09:17)
[2023-02-21] MEDS: ZINC OXIDE TOP SCH ×2 (09:18→21:43)
[2023-02-21] MEDS: DICLOFENAC SODIUM 100 GM GEL..GRAM. TP SCH ×2 (09:18→21:43)
[2023-02-21] MEDS: ENOXAPARIN SODIUM 40 MG/0.4 ML DISP.SYRIN SQ SCH (09:22)
[2023-02-21] MEDS: HYDROMORPHONE HCL 4 MG TABLET GT PRN ×3 (09:31→18:00)
[2023-02-21] MEDS: JEVITY 1.2 1000 ML LIQUID GT PRN (13:54)
[2023-02-21] MEDS: LORAZEPAM 1 MG TABLET GT PRN (20:15)
[2023-02-21 20:23] VITALS: TEMP 98
[2023-02-21] MEDS: hydrOXYzine HCL 25 MG TABLET GT SCH (21:43)
[2023-02-21] MEDS: MELATONIN 3 MG TABLET GT SCH (21:43)
[2023-02-21] MEDS: ACETAMINOPHEN 650 MG/20 ML UDC- SA PATIENTS-PAIN ONLY GT PRN (21:44)
[2023-02-22] MEDS: IPRATROPIUM BROMIDE 0.5 MG/2.5 ML NEBU NEB SCH ×4 (00:47→19:06)
[2023-02-22] MEDS: GABAPENTIN 300 MG/6 ML GT SCH ×3 (05:49→20:47)
[2023-02-22] MEDS: OMEPRAZOLE 20 MG CAPSULE.DR GT SCH (05:50)
[2023-02-22] MEDS: RILUZOLE 50 MG TAB GT SCH ×2 (05:50→18:01)
[2023-02-22] MEDS: HYDROGEN PEROXIDE 3% 118 ML BOTTLE TP SCH ×2 (07:13→19:06)
[2023-02-22 07:30] VITALS: TEMP 98.1
[2023-02-22] MEDS: OLOPATADINE 0.1% OPHT DROP 5 ML BOTTLE EACHEYE SCH ×2 (09:00→17:35)
[2023-02-22] MEDS: LORATADINE 10 MG TABLET GT SCH (09:18)
[2023-02-22] MEDS: DOCUSATE SODIUM 100 MG/10 ML LIQUID UDC GT SCH ×2 (09:19→20:47)
[2023-02-22] MEDS: POTASSIUM CHLORIDE 40 MEQ/15 ML LIQUID GT SCH (09:19)
[2023-02-22] MEDS: FLUOXETINE HCL 40 MG CAPSULE GT SCH ×2 (09:19→13:00)
[2023-02-22] MEDS: risperiDONE 0.25 MG TABLET GT SCH ×2 (09:20→17:35)
[2023-02-22] MEDS: CHLORHEXIDINE GLUCONATE 15 ML MOUTHWASH MM SCH ×2 (09:21→17:40)
[2023-02-22] MEDS: FLUTICASONE PROP NASAL SPRAY 16 GM BOTTLE NS SCH (09:21)
[2023-02-22] MEDS: DICLOFENAC SODIUM 100 GM GEL..GRAM. TP SCH ×2 (09:23→20:48)
[2023-02-22] MEDS: ENOXAPARIN SODIUM 40 MG/0.4 ML DISP.SYRIN SQ SCH (09:23)
[2023-02-22] MEDS: ZINC OXIDE TOP SCH ×2 (09:23→20:48)
[2023-02-22] MEDS: HYDROMORPHONE HCL 4 MG TABLET GT PRN ×2 (09:24→17:37)
[2023-02-22] MEDS: JEVITY 1.2 1000 ML LIQUID GT PRN (09:29)
[2023-02-22] MEDS: ACETAMINOPHEN 650 MG/20 ML UDC- SA PATIENTS-PAIN ONLY GT PRN ×2 (12:02→20:52)
[2023-02-22] MEDS: LORAZEPAM 1 MG TABLET GT PRN ×2 (12:03→20:49)
[2023-02-22] MEDS ORDERED: TUBERCULIN,PURIF.PROT.DERIV. 5 TU/0.1 ML TEST ID ONE (14:00)
[2023-02-22] MEDS: MAG HYDROX/AL HYDROX/SIMETH 30 ML LIQUID UDC GT PRN (18:06)
[2023-02-22 19:38] VITALS: TEMP 98.9
[2023-02-22 19:44] VITALS: TEMP 98.6
[2023-02-22] MEDS: MELATONIN 3 MG TABLET GT SCH (20:47)
[2023-02-22] MEDS: hydrOXYzine HCL 25 MG TABLET GT SCH (20:47)
[2023-02-22] MEDS: [UNRECOGNIZED DRUG - OTHER] TP SCH (20:48)
[2023-02-22] MEDS: VITAMIN E TP SCH (20:48)
[2023-02-23] MEDS: IPRATROPIUM BROMIDE 0.5 MG/2.5 ML NEBU NEB SCH ×4 (00:53→19:04)
[2023-02-23] MEDS: HYDROMORPHONE HCL 4 MG TABLET GT PRN ×3 (03:00→17:45)
[2023-02-23] MEDS: ONDANSETRON HCL 4 MG TABLET GT PRN (03:28)
[2023-02-23] MEDS: OMEPRAZOLE 20 MG CAPSULE.DR GT SCH (05:23)
[2023-02-23] MEDS: RILUZOLE 50 MG TAB GT SCH ×2 (05:23→17:41)
[2023-02-23] MEDS: GABAPENTIN 300 MG/6 ML GT SCH ×3 (05:23→20:29)
[2023-02-23] MEDS: HYDROGEN PEROXIDE 3% 118 ML BOTTLE TP SCH ×2 (09:34→21:15)
[2023-02-23] MEDS: LORATADINE 10 MG TABLET GT SCH (09:54)
[2023-02-23] MEDS: DOCUSATE SODIUM 100 MG/10 ML LIQUID UDC GT SCH ×2 (09:54→20:29)
[2023-02-23] MEDS: FLUOXETINE HCL 40 MG CAPSULE GT SCH ×2 (09:55→12:25)
[2023-02-23] MEDS: POTASSIUM CHLORIDE 40 MEQ/15 ML LIQUID GT SCH (09:55)
[2023-02-23] MEDS: OLOPATADINE 0.1% OPHT DROP 5 ML BOTTLE EACHEYE SCH ×2 (09:55→17:41)
[2023-02-23] MEDS: VITAMIN E TP SCH ×2 (09:56→20:29)
[2023-02-23] MEDS: ZINC OXIDE TOP SCH ×2 (09:56→20:29)
[2023-02-23] MEDS: CHLORHEXIDINE GLUCONATE 15 ML MOUTHWASH MM SCH ×2 (09:56→17:41)
[2023-02-23] MEDS: [UNRECOGNIZED DRUG - OTHER] TP SCH ×2 (09:56→20:29)
[2023-02-23] MEDS: DICLOFENAC SODIUM 100 GM GEL..GRAM. TP SCH ×2 (09:56→20:29)
[2023-02-23] MEDS: FLUTICASONE PROP NASAL SPRAY 16 GM BOTTLE NS SCH (09:56)
[2023-02-23] MEDS: risperiDONE 0.25 MG TABLET GT SCH ×2 (09:56→17:41)
[2023-02-23] MEDS: ENOXAPARIN SODIUM 40 MG/0.4 ML DISP.SYRIN SQ SCH (09:57)
[2023-02-23] MEDS: LORAZEPAM 1 MG TABLET GT PRN ×2 (12:31→22:00)
[2023-02-23] MEDS: ACETAMINOPHEN 650 MG/20 ML UDC- SA PATIENTS-PAIN ONLY GT PRN (14:22)
[2023-02-23 20:00] VITALS: TEMP 99
[2023-02-23] MEDS: MELATONIN 3 MG TABLET GT SCH (20:29)
[2023-02-23] MEDS: hydrOXYzine HCL 25 MG TABLET GT SCH (20:29)
[2023-02-24] MEDS: GABAPENTIN 300 MG/6 ML GT SCH ×3 (05:49→21:03)
[2023-02-24] MEDS: RILUZOLE 50 MG TAB GT SCH ×2 (05:49→17:56)
[2023-02-24] MEDS: OMEPRAZOLE 20 MG CAPSULE.DR GT SCH (05:49)
[2023-02-24 06:19] VITALS: TEMP 98
[2023-02-24] MEDS: IPRATROPIUM BROMIDE 0.5 MG/2.5 ML NEBU NEB SCH ×3 (07:35→19:54)
[2023-02-24 08:00] VITALS: TEMP 98.7
[2023-02-24] MEDS: HYDROGEN PEROXIDE 3% 118 ML BOTTLE TP SCH ×2 (09:00→21:00)
[2023-02-24] MEDS: DOCUSATE SODIUM 100 MG/10 ML LIQUID UDC GT SCH ×2 (09:00→20:58)
[2023-02-24] MEDS: HYDROMORPHONE HCL 4 MG TABLET GT PRN ×2 (09:33→17:55)
[2023-02-24] MEDS: OLOPATADINE 0.1% OPHT DROP 5 ML BOTTLE EACHEYE SCH ×2 (09:33→17:55)
[2023-02-24] MEDS: LORATADINE 10 MG TABLET GT SCH (09:35)
[2023-02-24] MEDS: risperiDONE 0.25 MG TABLET GT SCH ×2 (09:37→17:57)
[2023-02-24] MEDS: FLUOXETINE HCL 40 MG CAPSULE GT SCH ×2 (09:37→13:00)
[2023-02-24] MEDS: CHLORHEXIDINE GLUCONATE 15 ML MOUTHWASH MM SCH ×2 (09:38→17:55)
[2023-02-24] MEDS: POTASSIUM CHLORIDE 40 MEQ/15 ML LIQUID GT SCH (09:39)
[2023-02-24] MEDS: FLUTICASONE PROP NASAL SPRAY 16 GM BOTTLE NS SCH (09:39)
[2023-02-24] MEDS: ENOXAPARIN SODIUM 40 MG/0.4 ML DISP.SYRIN SQ SCH (09:41)
[2023-02-24] MEDS: ZINC OXIDE TOP SCH ×2 (09:42→20:58)
[2023-02-24] MEDS: [UNRECOGNIZED DRUG - OTHER] TP SCH ×2 (09:42→20:59)
[2023-02-24] MEDS: VITAMIN E TP SCH ×2 (09:42→20:59)
[2023-02-24] MEDS: DICLOFENAC SODIUM 100 GM GEL..GRAM. TP SCH ×2 (09:42→20:59)
[2023-02-24] MEDS: LORAZEPAM 1 MG TABLET GT PRN (14:00)
[2023-02-24] MEDS: JEVITY 1.2 1000 ML LIQUID GT PRN (14:07)
[2023-02-24] MEDS: ACETAMINOPHEN 650 MG/20 ML UDC- SA PATIENTS-PAIN ONLY GT PRN ×2 (14:08→21:02)
[2023-02-24 20:05] VITALS: TEMP 99.6
[2023-02-24] MEDS: hydrOXYzine HCL 25 MG TABLET GT SCH (20:57)
[2023-02-24] MEDS: MELATONIN 3 MG TABLET GT SCH (20:58)
[2023-02-25] MEDS: ACETAMINOPHEN 650 MG/20 ML UDC- SA PATIENTS-PAIN ONLY GT PRN ×2 (01:04→20:58)
[2023-02-25] MEDS: IPRATROPIUM BROMIDE 0.5 MG/2.5 ML NEBU NEB SCH ×4 (01:12→20:15)
[2023-02-25] MEDS: OMEPRAZOLE 20 MG CAPSULE.DR GT SCH (06:00)
[2023-02-25] MEDS: GABAPENTIN 300 MG/6 ML GT SCH ×3 (06:00→20:48)
[2023-02-25] MEDS: RILUZOLE 50 MG TAB GT SCH ×2 (06:00→17:30)
[2023-02-25 08:00] VITALS: TEMP 98
[2023-02-25] MEDS: HYDROGEN PEROXIDE 3% 118 ML BOTTLE TP SCH ×2 (09:00→20:15)
[2023-02-25] MEDS: OLOPATADINE 0.1% OPHT DROP 5 ML BOTTLE EACHEYE SCH ×2 (09:34→17:29)
[2023-02-25] MEDS: LORATADINE 10 MG TABLET GT SCH (09:34)
[2023-02-25] MEDS: DOCUSATE SODIUM 100 MG/10 ML LIQUID UDC GT SCH ×2 (09:35→20:48)
[2023-02-25] MEDS: FLUOXETINE HCL 40 MG CAPSULE GT SCH ×2 (09:36→13:59)
[2023-02-25] MEDS: POTASSIUM CHLORIDE 40 MEQ/15 ML LIQUID GT SCH (09:37)
[2023-02-25] MEDS: CHLORHEXIDINE GLUCONATE 15 ML MOUTHWASH MM SCH ×2 (09:37→17:32)
[2023-02-25] MEDS: risperiDONE 0.25 MG TABLET GT SCH ×2 (09:37→17:30)
[2023-02-25] MEDS: FLUTICASONE PROP NASAL SPRAY 16 GM BOTTLE NS SCH (09:38)
[2023-02-25] MEDS: ENOXAPARIN SODIUM 40 MG/0.4 ML DISP.SYRIN SQ SCH (09:39)
[2023-02-25] MEDS: DICLOFENAC SODIUM 100 GM GEL..GRAM. TP SCH ×2 (09:40→20:49)
[2023-02-25] MEDS: VITAMIN E TP SCH ×2 (09:40→20:49)
[2023-02-25] MEDS: ZINC OXIDE TOP SCH ×2 (09:40→20:49)
[2023-02-25] MEDS: [UNRECOGNIZED DRUG - OTHER] TP SCH ×2 (09:40→20:49)
[2023-02-25] MEDS: LORAZEPAM 1 MG TABLET GT PRN ×3 (09:41→22:00)
[2023-02-25] MEDS: JEVITY 1.2 1000 ML LIQUID GT PRN (09:42)
[2023-02-25] MEDS: HYDROMORPHONE HCL 4 MG TABLET GT PRN (09:42)
[2023-02-25] MEDS: HYDROCODONE/APAP 5-325MG TABLET PO PRN (14:20)
[2023-02-25 20:00] VITALS: TEMP 96.7
[2023-02-25] MEDS: hydrOXYzine HCL 25 MG TABLET GT SCH (20:48)
[2023-02-25] MEDS: MELATONIN 3 MG TABLET GT SCH (20:49)
[2023-02-26] MEDS: IPRATROPIUM BROMIDE 0.5 MG/2.5 ML NEBU NEB SCH ×4 (01:30→19:20)
[2023-02-26] MEDS: GABAPENTIN 300 MG/6 ML GT SCH ×3 (05:21→20:15)
[2023-02-26] MEDS: OMEPRAZOLE 20 MG CAPSULE.DR GT SCH (05:21)
[2023-02-26] MEDS: RILUZOLE 50 MG TAB GT SCH ×2 (05:21→18:05)
[2023-02-26 07:54] VITALS: TEMP 98.8
[2023-02-26] MEDS: HYDROGEN PEROXIDE 3% 118 ML BOTTLE TP SCH ×2 (09:09→19:20)
[2023-02-26] MEDS: LORATADINE 10 MG TABLET GT SCH (09:19)
[2023-02-26] MEDS: OLOPATADINE 0.1% OPHT DROP 5 ML BOTTLE EACHEYE SCH ×2 (09:19→18:00)
[2023-02-26] MEDS: DOCUSATE SODIUM 100 MG/10 ML LIQUID UDC GT SCH ×2 (09:20→20:15)
[2023-02-26] MEDS: FLUOXETINE HCL 40 MG CAPSULE GT SCH ×2 (09:20→13:43)
[2023-02-26] MEDS: POTASSIUM CHLORIDE 40 MEQ/15 ML LIQUID GT SCH (09:20)
[2023-02-26] MEDS: CHLORHEXIDINE GLUCONATE 15 ML MOUTHWASH MM SCH ×2 (09:21→18:00)
[2023-02-26] MEDS: risperiDONE 0.25 MG TABLET GT SCH ×2 (09:21→18:00)
[2023-02-26] MEDS: FLUTICASONE PROP NASAL SPRAY 16 GM BOTTLE NS SCH (09:21)
[2023-02-26] MEDS: ENOXAPARIN SODIUM 40 MG/0.4 ML DISP.SYRIN SQ SCH (09:23)
[2023-02-26] MEDS: ZINC OXIDE TOP SCH ×2 (09:23→20:16)
[2023-02-26] MEDS: DICLOFENAC SODIUM 100 GM GEL..GRAM. TP SCH ×2 (09:23→20:17)
[2023-02-26] MEDS: VITAMIN E TP SCH ×2 (09:24→20:17)
[2023-02-26] MEDS: [UNRECOGNIZED DRUG - OTHER] TP SCH ×2 (09:24→20:17)
[2023-02-26] MEDS: HYDROMORPHONE HCL 4 MG TABLET GT PRN ×3 (09:25→18:04)
[2023-02-26] MEDS: JEVITY 1.2 1000 ML LIQUID GT PRN (09:25)
[2023-02-26 20:00] VITALS: TEMP 98.5
[2023-02-26] MEDS: hydrOXYzine HCL 25 MG TABLET GT SCH (20:14)
[2023-02-26] MEDS: ACETAMINOPHEN 650 MG/20 ML UDC- SA PATIENTS-PAIN ONLY GT PRN ×2 (20:15→23:05)
[2023-02-26] MEDS: MELATONIN 3 MG TABLET GT SCH (20:20)
[2023-02-26] MEDS: LORAZEPAM 1 MG TABLET GT PRN (20:20)
[2023-02-27] MEDS: IPRATROPIUM BROMIDE 0.5 MG/2.5 ML NEBU NEB SCH ×4 (01:07→19:24)
[2023-02-27] MEDS: OMEPRAZOLE 20 MG CAPSULE.DR GT SCH (06:24)
[2023-02-27] MEDS: RILUZOLE 50 MG TAB GT SCH ×2 (06:24→17:46)
[2023-02-27] MEDS: JEVITY 1.2 1000 ML LIQUID GT PRN (06:26)
[2023-02-27] MEDS: GABAPENTIN 300 MG/6 ML GT SCH ×3 (06:26→20:01)
[2023-02-27 07:44] VITALS: TEMP 98.8
[2023-02-27] MEDS: HYDROMORPHONE HCL 4 MG TABLET GT PRN ×2 (08:30→12:30)
[2023-02-27] MEDS: LORATADINE 10 MG TABLET GT SCH (08:31)
[2023-02-27] MEDS: OLOPATADINE 0.1% OPHT DROP 5 ML BOTTLE EACHEYE SCH ×2 (08:31→17:45)
[2023-02-27] MEDS: DOCUSATE SODIUM 100 MG/10 ML LIQUID UDC GT SCH ×2 (08:31→20:02)
[2023-02-27] MEDS: POTASSIUM CHLORIDE 40 MEQ/15 ML LIQUID GT SCH (08:32)
[2023-02-27] MEDS: FLUOXETINE HCL 40 MG CAPSULE GT SCH ×2 (08:32→12:21)
[2023-02-27] MEDS: FLUTICASONE PROP NASAL SPRAY 16 GM BOTTLE NS SCH (08:33)
[2023-02-27] MEDS: risperiDONE 0.25 MG TABLET GT SCH ×2 (08:33→17:45)
[2023-02-27] MEDS: CHLORHEXIDINE GLUCONATE 15 ML MOUTHWASH MM SCH ×2 (08:33→17:46)
[2023-02-27] MEDS: ENOXAPARIN SODIUM 40 MG/0.4 ML DISP.SYRIN SQ SCH (08:39)
[2023-02-27] MEDS: [UNRECOGNIZED DRUG - OTHER] TP SCH ×2 (08:39→20:05)
[2023-02-27] MEDS: ZINC OXIDE TOP SCH ×2 (08:39→20:04)
[2023-02-27] MEDS: VITAMIN E TP SCH ×2 (08:39→20:05)
[2023-02-27] MEDS: DICLOFENAC SODIUM 100 GM GEL..GRAM. TP SCH ×2 (08:39→20:04)
[2023-02-27] MEDS: HYDROGEN PEROXIDE 3% 118 ML BOTTLE TP SCH ×2 (09:00→19:24)
[2023-02-27 19:59] VITALS: TEMP 99.4
[2023-02-27] MEDS: hydrOXYzine HCL 25 MG TABLET GT SCH (20:01)
[2023-02-27] MEDS: MELATONIN 3 MG TABLET GT SCH (20:02)
[2023-02-27] MEDS: ACETAMINOPHEN 650 MG/20 ML UDC- SA PATIENTS-PAIN ONLY GT PRN (20:04)
[2023-02-27] MEDS: LORAZEPAM 1 MG TABLET GT PRN (20:04)
[2023-02-28] MEDS: IPRATROPIUM BROMIDE 0.5 MG/2.5 ML NEBU NEB SCH ×4 (01:30→19:21)
[2023-02-28] MEDS: ACETAMINOPHEN 650 MG/20 ML UDC- SA PATIENTS-PAIN ONLY GT PRN ×2 (05:16→21:00)
[2023-02-28 06:12] LABS: BASOPHILS % (AUTO) 0.3 % (0.0-2.0); EOSINOPHILS # (AUTO) 0.3 K/uL (0.0-0.7); EOSINOPHILS % (AUTO) 5.7 % (0.0-7.0); HEMATOCRIT 35.7 % (31.2-41.9); HEMOGLOBIN 11.7 g/dL (10.9-14.3); LYMPHOCYTES # (AUTO) 1.1 K/uL (0.8-4.8); LYMPHOCYTES % (AUTO) 23.7 % (20.5-51.5); MEAN CORPUSCULAR HEMOGLOBIN 31.2 uug (24.7-32.8); MEAN CORPUSCULAR HGB CONC 33 g/dL (32.3-35.6); MEAN CORPUSCULAR VOLUME 94.8 fL (75.5-95.3); MONOCYTES # (AUTO) 0.4 K/uL (0.1-1.30); MONOCYTES % (AUTO) 8.2 % (0.0-11.0); NEUTROPHILS # (AUTO) 2.9 K/uL (1.8-8.9); NEUTROPHILS % (AUTO) 62.1 % (38.5-71.5); PLATELET COUNT (AUTO) 298 K/uL (179-408); RED BLOOD CELL COUNT(AUTO) 3.76 MIL/uL (3.63-4.92); RED CELL DISTRIBUTION WIDTH 13.6 % (12.3-17.7); WHITE BLOOD COUNT (AUTO) 4.7 K/uL (3.8-11.8)
[2023-02-28] MEDS: GABAPENTIN 300 MG/6 ML GT SCH ×3 (06:24→20:47)
[2023-02-28] MEDS: RILUZOLE 50 MG TAB GT SCH ×2 (06:24→17:42)
[2023-02-28] MEDS: OMEPRAZOLE 20 MG CAPSULE.DR GT SCH (06:24)
[2023-02-28] MEDS: JEVITY 1.2 1000 ML LIQUID GT PRN (06:25)
[2023-02-28 06:32] LABS: ALANINE AMINOTRANSFERASE 24 U/L (14-59); ALKALINE PHOSPHATASE 114 U/L (50-136); ASPARTATE AMINOTRANSFERASE 9 U/L (15-37); BILIRUBIN,TOTAL 0.4 mg/dL (0.2-1.0); CALCIUM 9.7 mg/dL (8.5-10.1); CARBON DIOXIDE 34 mmol/L (21-32); CHLORIDE 100 mmol/L (98-107); CREATININE 0.2 mg/dL (0.6-1.3); GLUCOSE 131 mg/dL (74-106); SODIUM SERUM 142 mmol/L (136-145); TOTAL PROTEIN, SERUM 8.1 g/dL (6.4-8.2); UREA NITROGEN, BLOOD 14 mg/dL (7-18)
[2023-02-28 07:24] VITALS: TEMP 98.5
[2023-02-28 07:30] LABS: DIFFERENTIAL COMMENT 1
[2023-02-28] MEDS: HYDROGEN PEROXIDE 3% 118 ML BOTTLE TP SCH ×2 (08:59→19:21)
[2023-02-28] MEDS: OLOPATADINE 0.1% OPHT DROP 5 ML BOTTLE EACHEYE SCH ×2 (09:24→17:41)
[2023-02-28] MEDS: LORATADINE 10 MG TABLET GT SCH (09:25)
[2023-02-28] MEDS: DOCUSATE SODIUM 100 MG/10 ML LIQUID UDC GT SCH ×2 (09:26→20:47)
[2023-02-28] MEDS: POTASSIUM CHLORIDE 40 MEQ/15 ML LIQUID GT SCH (09:27)
[2023-02-28] MEDS: FLUOXETINE HCL 40 MG CAPSULE GT SCH ×2 (09:27→13:27)
[2023-02-28] MEDS: CHLORHEXIDINE GLUCONATE 15 ML MOUTHWASH MM SCH ×2 (09:28→17:42)
[2023-02-28] MEDS: risperiDONE 0.25 MG TABLET GT SCH ×2 (09:28→17:42)
[2023-02-28] MEDS: FLUTICASONE PROP NASAL SPRAY 16 GM BOTTLE NS SCH (09:28)
[2023-02-28] MEDS: ZINC OXIDE TOP SCH ×2 (09:28→20:47)
[2023-02-28] MEDS: ENOXAPARIN SODIUM 40 MG/0.4 ML DISP.SYRIN SQ SCH (09:29)
[2023-02-28] MEDS: VITAMIN E TP SCH ×2 (09:29→20:47)
[2023-02-28] MEDS: [UNRECOGNIZED DRUG - OTHER] TP SCH ×2 (09:29→20:47)
[2023-02-28] MEDS: DICLOFENAC SODIUM 100 GM GEL..GRAM. TP SCH ×2 (09:29→20:47)
[2023-02-28] MEDS: HYDROMORPHONE HCL 4 MG TABLET GT PRN ×3 (09:35→18:08)
[2023-02-28 19:46] VITALS: TEMP 98
[2023-02-28] MEDS: MELATONIN 3 MG TABLET GT SCH (20:47)
[2023-02-28] MEDS: hydrOXYzine HCL 25 MG TABLET GT SCH (20:47)
[2023-02-28] MEDS: MAG HYDROX/AL HYDROX/SIMETH 30 ML LIQUID UDC GT PRN (20:48)
[2023-02-28] MEDS: LORAZEPAM 1 MG TABLET GT PRN (21:30)
[2023-03-01] MEDS: IPRATROPIUM BROMIDE 0.5 MG/2.5 ML NEBU NEB SCH ×4 (01:28→19:19)
[2023-03-01] MEDS: JEVITY 1.2 1000 ML LIQUID GT PRN (03:36)
[2023-03-01] MEDS: OMEPRAZOLE 20 MG CAPSULE.DR GT SCH (05:44)
[2023-03-01] MEDS: RILUZOLE 50 MG TAB GT SCH ×2 (05:44→17:53)
[2023-03-01] MEDS: GABAPENTIN 300 MG/6 ML GT SCH ×3 (05:44→21:11)
[2023-03-01 07:20] VITALS: TEMP 98.7
[2023-03-01] MEDS: HYDROGEN PEROXIDE 3% 118 ML BOTTLE TP SCH ×2 (09:00→19:19)
[2023-03-01] MEDS: OLOPATADINE 0.1% OPHT DROP 5 ML BOTTLE EACHEYE SCH ×2 (09:10→17:52)
[2023-03-01] MEDS: LORATADINE 10 MG TABLET GT SCH (09:10)
[2023-03-01] MEDS: FLUOXETINE HCL 40 MG CAPSULE GT SCH ×2 (09:11→12:37)
[2023-03-01] MEDS: DOCUSATE SODIUM 100 MG/10 ML LIQUID UDC GT SCH ×2 (09:11→21:10)
[2023-03-01] MEDS: POTASSIUM CHLORIDE 40 MEQ/15 ML LIQUID GT SCH (09:12)
[2023-03-01] MEDS: ZINC OXIDE TOP SCH ×2 (09:13→21:11)
[2023-03-01] MEDS: FLUTICASONE PROP NASAL SPRAY 16 GM BOTTLE NS SCH (09:13)
[2023-03-01] MEDS: CHLORHEXIDINE GLUCONATE 15 ML MOUTHWASH MM SCH ×2 (09:13→17:53)
[2023-03-01] MEDS: risperiDONE 0.25 MG TABLET GT SCH ×2 (09:13→17:53)
[2023-03-01] MEDS: [UNRECOGNIZED DRUG - OTHER] TP SCH ×2 (09:14→21:11)
[2023-03-01] MEDS: DICLOFENAC SODIUM 100 GM GEL..GRAM. TP SCH ×2 (09:14→21:11)
[2023-03-01] MEDS: HYDROCODONE/APAP 5-325MG TABLET PO PRN ×2 (09:14→18:00)
[2023-03-01] MEDS: VITAMIN E TP SCH ×2 (09:14→21:11)
[2023-03-01] MEDS: ENOXAPARIN SODIUM 40 MG/0.4 ML DISP.SYRIN SQ SCH (09:17)
[2023-03-01] MEDS: HYDROMORPHONE HCL 4 MG TABLET GT PRN ×2 (12:38→14:45)
[2023-03-01 20:35] VITALS: TEMP 99.5
[2023-03-01] MEDS: hydrOXYzine HCL 25 MG TABLET GT SCH (21:10)
[2023-03-01] MEDS: MELATONIN 3 MG TABLET GT SCH (21:11)
[2023-03-01] MEDS: LORAZEPAM 1 MG TABLET GT PRN (21:11)
[2023-03-01] MEDS: ACETAMINOPHEN 650 MG/20 ML UDC- SA PATIENTS-PAIN ONLY GT PRN (21:12)
[2023-03-02] MEDS: IPRATROPIUM BROMIDE 0.5 MG/2.5 ML NEBU NEB SCH ×4 (00:33→19:30)
[2023-03-02] MEDS: RILUZOLE 50 MG TAB GT SCH ×2 (05:27→17:09)
[2023-03-02] MEDS: JEVITY 1.2 1000 ML LIQUID GT PRN (05:27)
[2023-03-02] MEDS: OMEPRAZOLE 20 MG CAPSULE.DR GT SCH (05:27)
[2023-03-02] MEDS: GABAPENTIN 300 MG/6 ML GT SCH ×3 (05:27→20:31)
[2023-03-02] MEDS: LORATADINE 10 MG TABLET GT SCH (08:33)
[2023-03-02] MEDS: OLOPATADINE 0.1% OPHT DROP 5 ML BOTTLE EACHEYE SCH ×2 (08:33→17:09)
[2023-03-02] MEDS: DOCUSATE SODIUM 100 MG/10 ML LIQUID UDC GT SCH ×2 (08:34→20:31)
[2023-03-02] MEDS: FLUOXETINE HCL 40 MG CAPSULE GT SCH ×2 (08:34→13:09)
[2023-03-02] MEDS: FLUTICASONE PROP NASAL SPRAY 16 GM BOTTLE NS SCH (08:35)
[2023-03-02] MEDS: CHLORHEXIDINE GLUCONATE 15 ML MOUTHWASH MM SCH ×2 (08:35→16:59)
[2023-03-02] MEDS: risperiDONE 0.25 MG TABLET GT SCH ×2 (08:35→16:58)
[2023-03-02] MEDS: POTASSIUM CHLORIDE 40 MEQ/15 ML LIQUID GT SCH (08:35)
[2023-03-02] MEDS: ENOXAPARIN SODIUM 40 MG/0.4 ML DISP.SYRIN SQ SCH (08:38)
[2023-03-02] MEDS: VITAMIN E TP SCH ×2 (08:39→20:32)
[2023-03-02] MEDS: ZINC OXIDE TOP SCH ×2 (08:39→20:32)
[2023-03-02] MEDS: DICLOFENAC SODIUM 100 GM GEL..GRAM. TP SCH ×2 (08:39→20:32)
[2023-03-02] MEDS: [UNRECOGNIZED DRUG - OTHER] TP SCH ×2 (08:39→20:32)
[2023-03-02] MEDS: HYDROMORPHONE HCL 4 MG TABLET GT PRN ×4 (08:51→18:06)
[2023-03-02] MEDS: HYDROGEN PEROXIDE 3% 118 ML BOTTLE TP SCH ×2 (09:00→21:13)
[2023-03-02 10:00] VITALS: O2SAT 99
[2023-03-02] MEDS: ACETAMINOPHEN 650 MG/20 ML UDC- SA PATIENTS-PAIN ONLY GT PRN ×2 (10:05→20:33)
[2023-03-02] MEDS: LORAZEPAM 1 MG TABLET GT PRN ×2 (14:04→20:32)
[2023-03-02 20:10] VITALS: TEMP 97.7
[2023-03-02] MEDS: hydrOXYzine HCL 25 MG TABLET GT SCH (20:28)
[2023-03-02] MEDS: MELATONIN 3 MG TABLET GT SCH (20:31)
[2023-03-03] MEDS: IPRATROPIUM BROMIDE 0.5 MG/2.5 ML NEBU NEB SCH ×4 (02:09→22:37)
[2023-03-03] MEDS: JEVITY 1.2 1000 ML LIQUID GT PRN ×2 (03:56→23:56)
[2023-03-03] MEDS: RILUZOLE 50 MG TAB GT SCH ×2 (05:42→18:15)
[2023-03-03] MEDS: OMEPRAZOLE 20 MG CAPSULE.DR GT SCH (05:42)
[2023-03-03] MEDS: GABAPENTIN 300 MG/6 ML GT SCH ×3 (05:42→21:00)
[2023-03-03] MEDS: HYDROGEN PEROXIDE 3% 118 ML BOTTLE TP SCH ×2 (07:08→22:37)
[2023-03-03 07:30] VITALS: TEMP 97.8
[2023-03-03] MEDS: risperiDONE 0.25 MG TABLET GT SCH ×2 (09:00→17:00)
[2023-03-03] MEDS: CHLORHEXIDINE GLUCONATE 15 ML MOUTHWASH MM SCH ×2 (09:00→17:00)
[2023-03-03] MEDS: ENOXAPARIN SODIUM 40 MG/0.4 ML DISP.SYRIN SQ SCH (09:00)
[2023-03-03] MEDS: FLUTICASONE PROP NASAL SPRAY 16 GM BOTTLE NS SCH (09:00)
[2023-03-03] MEDS: DICLOFENAC SODIUM 100 GM GEL..GRAM. TP SCH ×2 (09:00→21:00)
[2023-03-03] MEDS: ZINC OXIDE TOP SCH ×2 (09:00→21:00)
[2023-03-03] MEDS: VITAMIN E TP SCH ×2 (09:00→21:00)
[2023-03-03] MEDS: DOCUSATE SODIUM 100 MG/10 ML LIQUID UDC GT SCH ×2 (09:00→21:00)
[2023-03-03] MEDS: FLUOXETINE HCL 40 MG CAPSULE GT SCH ×2 (09:00→13:00)
[2023-03-03] MEDS: POTASSIUM CHLORIDE 40 MEQ/15 ML LIQUID GT SCH (09:00)
[2023-03-03] MEDS: LORATADINE 10 MG TABLET GT SCH (09:00)
[2023-03-03] MEDS: [UNRECOGNIZED DRUG - OTHER] TP SCH ×2 (09:00→21:00)
[2023-03-03] MEDS: OLOPATADINE 0.1% OPHT DROP 5 ML BOTTLE EACHEYE SCH ×2 (09:00→17:00)
[2023-03-03] MEDS: HYDROMORPHONE HCL 4 MG TABLET GT PRN ×2 (10:35→18:21)
[2023-03-03] MEDS: LORAZEPAM 1 MG TABLET GT PRN ×2 (14:25→20:30)
[2023-03-03] MEDS: ACETAMINOPHEN 650 MG/20 ML UDC- SA PATIENTS-PAIN ONLY GT PRN ×2 (14:28→20:38)
[2023-03-03 15:56] VITALS: TEMP 97.8
[2023-03-03 20:00] VITALS: TEMP 98.2
[2023-03-03] MEDS: hydrOXYzine HCL 25 MG TABLET GT SCH (21:00)
[2023-03-03] MEDS: MELATONIN 3 MG TABLET GT SCH (21:00)
[2023-03-04] MEDS: IPRATROPIUM BROMIDE 0.5 MG/2.5 ML NEBU NEB SCH ×4 (00:36→19:15)
[2023-03-04] MEDS: RILUZOLE 50 MG TAB GT SCH ×2 (05:13→17:14)
[2023-03-04] MEDS: GABAPENTIN 300 MG/6 ML GT SCH ×3 (05:13→20:15)
[2023-03-04] MEDS: OMEPRAZOLE 20 MG CAPSULE.DR GT SCH (05:13)
[2023-03-04] MEDS: HYDROGEN PEROXIDE 3% 118 ML BOTTLE TP SCH ×2 (07:35→19:15)
[2023-03-04 08:00] VITALS: TEMP 98.2
[2023-03-04] MEDS: OLOPATADINE 0.1% OPHT DROP 5 ML BOTTLE EACHEYE SCH ×2 (08:31→17:14)
[2023-03-04] MEDS: DOCUSATE SODIUM 100 MG/10 ML LIQUID UDC GT SCH ×2 (08:32→20:14)
[2023-03-04] MEDS: LORATADINE 10 MG TABLET GT SCH (08:32)
[2023-03-04] MEDS: POTASSIUM CHLORIDE 40 MEQ/15 ML LIQUID GT SCH (08:33)
[2023-03-04] MEDS: FLUOXETINE HCL 40 MG CAPSULE GT SCH ×2 (08:33→12:11)
[2023-03-04] MEDS: CHLORHEXIDINE GLUCONATE 15 ML MOUTHWASH MM SCH ×2 (08:36→17:14)
[2023-03-04] MEDS: risperiDONE 0.25 MG TABLET GT SCH ×2 (08:36→17:14)
[2023-03-04] MEDS: FLUTICASONE PROP NASAL SPRAY 16 GM BOTTLE NS SCH (08:37)
[2023-03-04] MEDS: ENOXAPARIN SODIUM 40 MG/0.4 ML DISP.SYRIN SQ SCH (08:39)
[2023-03-04] MEDS: ZINC OXIDE TOP SCH ×2 (08:39→20:15)
[2023-03-04] MEDS: DICLOFENAC SODIUM 100 GM GEL..GRAM. TP SCH ×2 (08:39→20:15)
[2023-03-04] MEDS: [UNRECOGNIZED DRUG - OTHER] TP SCH ×2 (08:40→20:15)
[2023-03-04] MEDS: HYDROMORPHONE HCL 4 MG TABLET GT PRN ×3 (08:40→20:20)
[2023-03-04] MEDS: VITAMIN E TP SCH ×2 (08:40→20:15)
[2023-03-04] MEDS: LORAZEPAM 1 MG TABLET GT PRN ×2 (14:17→22:15)
[2023-03-04 20:00] VITALS: TEMP 99.2
[2023-03-04] MEDS: hydrOXYzine HCL 25 MG TABLET GT SCH (20:14)
[2023-03-04] MEDS: JEVITY 1.2 1000 ML LIQUID GT PRN (20:15)
[2023-03-04] MEDS: MELATONIN 3 MG TABLET GT SCH (20:15)
[2023-03-05] MEDS: IPRATROPIUM BROMIDE 0.5 MG/2.5 ML NEBU NEB SCH ×4 (00:46→20:28)
[2023-03-05] MEDS: RILUZOLE 50 MG TAB GT SCH ×2 (05:18→17:22)
[2023-03-05] MEDS: OMEPRAZOLE 20 MG CAPSULE.DR GT SCH (05:18)
[2023-03-05] MEDS: GABAPENTIN 300 MG/6 ML GT SCH ×3 (05:18→21:07)
[2023-03-05] MEDS: DOCUSATE SODIUM 100 MG/10 ML LIQUID UDC GT SCH ×2 (09:00→21:07)
[2023-03-05] MEDS: DICLOFENAC SODIUM 100 GM GEL..GRAM. TP SCH ×2 (09:00→21:07)
[2023-03-05] MEDS: FLUTICASONE PROP NASAL SPRAY 16 GM BOTTLE NS SCH (09:00)
[2023-03-05] MEDS: LORATADINE 10 MG TABLET GT SCH (09:00)
[2023-03-05] MEDS: POTASSIUM CHLORIDE 40 MEQ/15 ML LIQUID GT SCH (09:00)
[2023-03-05] MEDS: ZINC OXIDE TOP SCH ×2 (09:00→21:07)
[2023-03-05] MEDS: FLUOXETINE HCL 40 MG CAPSULE GT SCH ×2 (09:00→12:23)
[2023-03-05] MEDS: VITAMIN E TP SCH ×2 (09:00→21:07)
[2023-03-05] MEDS: CHLORHEXIDINE GLUCONATE 15 ML MOUTHWASH MM SCH ×2 (09:00→17:19)
[2023-03-05] MEDS: HYDROGEN PEROXIDE 3% 118 ML BOTTLE TP SCH ×2 (09:00→21:07)
[2023-03-05] MEDS: [UNRECOGNIZED DRUG - OTHER] TP SCH ×2 (09:00→21:07)
[2023-03-05] MEDS: OLOPATADINE 0.1% OPHT DROP 5 ML BOTTLE EACHEYE SCH ×2 (09:00→17:21)
[2023-03-05] MEDS: risperiDONE 0.25 MG TABLET GT SCH ×2 (09:00→17:21)
[2023-03-05] MEDS: ENOXAPARIN SODIUM 40 MG/0.4 ML DISP.SYRIN SQ SCH (09:00)
[2023-03-05] MEDS: HYDROMORPHONE HCL 4 MG TABLET GT PRN ×2 (10:28→17:20)
[2023-03-05] MEDS: LORAZEPAM 1 MG TABLET GT PRN ×2 (12:29→21:08)
[2023-03-05] MEDS: JEVITY 1.2 1000 ML LIQUID GT PRN (17:22)
[2023-03-05 20:00] VITALS: TEMP 97.2
[2023-03-05] MEDS: hydrOXYzine HCL 25 MG TABLET GT SCH (21:07)
[2023-03-05] MEDS: MELATONIN 3 MG TABLET GT SCH (21:07)
[2023-03-05] MEDS: ACETAMINOPHEN 650 MG/20 ML UDC- SA PATIENTS-PAIN ONLY GT PRN (21:08)
[2023-03-06] MEDS: IPRATROPIUM BROMIDE 0.5 MG/2.5 ML NEBU NEB SCH ×4 (00:17→19:18)
[2023-03-06] MEDS: GABAPENTIN 300 MG/6 ML GT SCH ×3 (05:28→20:08)
[2023-03-06] MEDS: OMEPRAZOLE 20 MG CAPSULE.DR GT SCH (05:28)
[2023-03-06] MEDS: RILUZOLE 50 MG TAB GT SCH ×2 (05:28→17:53)
[2023-03-06 08:02] VITALS: TEMP 98.2
[2023-03-06] MEDS: [UNRECOGNIZED DRUG - OTHER] TP SCH ×2 (09:18→20:09)
[2023-03-06] MEDS: VITAMIN E TP SCH ×2 (09:18→20:09)
[2023-03-06] MEDS: DICLOFENAC SODIUM 100 GM GEL..GRAM. TP SCH ×2 (09:18→20:08)
[2023-03-06] MEDS: FLUOXETINE HCL 40 MG CAPSULE GT SCH ×2 (09:20→12:04)
[2023-03-06] MEDS: FLUTICASONE PROP NASAL SPRAY 16 GM BOTTLE NS SCH (09:20)
[2023-03-06] MEDS: DOCUSATE SODIUM 100 MG/10 ML LIQUID UDC GT SCH ×2 (09:20→20:08)
[2023-03-06] MEDS: ENOXAPARIN SODIUM 40 MG/0.4 ML DISP.SYRIN SQ SCH (09:20)
[2023-03-06] MEDS: CHLORHEXIDINE GLUCONATE 15 ML MOUTHWASH MM SCH ×2 (09:20→17:53)
[2023-03-06] MEDS: risperiDONE 0.25 MG TABLET GT SCH ×2 (09:20→17:53)
[2023-03-06] MEDS: POTASSIUM CHLORIDE 40 MEQ/15 ML LIQUID GT SCH (09:20)
[2023-03-06] MEDS: LORATADINE 10 MG TABLET GT SCH (09:21)
[2023-03-06] MEDS: OLOPATADINE 0.1% OPHT DROP 5 ML BOTTLE EACHEYE SCH ×2 (09:22→17:53)
[2023-03-06] MEDS: ZINC OXIDE TOP SCH ×2 (09:22→20:08)
[2023-03-06] MEDS: HYDROCODONE/APAP 5-325MG TABLET PO PRN (09:31)
[2023-03-06] MEDS: HYDROGEN PEROXIDE 3% 118 ML BOTTLE TP SCH ×2 (09:34→20:08)
[2023-03-06] MEDS: LORAZEPAM 1 MG TABLET GT PRN ×2 (12:05→20:09)
[2023-03-06] MEDS: HYDROMORPHONE HCL 4 MG TABLET GT PRN ×2 (14:08→18:17)
[2023-03-06 20:00] VITALS: TEMP 96.7
[2023-03-06] MEDS: hydrOXYzine HCL 25 MG TABLET GT SCH (20:08)
[2023-03-06] MEDS: MELATONIN 3 MG TABLET GT SCH (20:08)
[2023-03-06] MEDS: ACETAMINOPHEN 650 MG/20 ML UDC- SA PATIENTS-PAIN ONLY GT PRN (20:10)
[2023-03-07] MEDS: IPRATROPIUM BROMIDE 0.5 MG/2.5 ML NEBU NEB SCH ×4 (01:43→20:05)
[2023-03-07] MEDS: GABAPENTIN 300 MG/6 ML GT SCH ×3 (05:16→20:54)
[2023-03-07] MEDS: RILUZOLE 50 MG TAB GT SCH ×2 (05:16→16:07)
[2023-03-07] MEDS: OMEPRAZOLE 20 MG CAPSULE.DR GT SCH (05:16)
[2023-03-07] MEDS: JEVITY 1.2 1000 ML LIQUID GT PRN (06:33)
[2023-03-07] MEDS: HYDROGEN PEROXIDE 3% 118 ML BOTTLE TP SCH ×2 (07:23→20:54)
[2023-03-07 08:50] VITALS: TEMP 97.4
[2023-03-07] MEDS: FLUTICASONE PROP NASAL SPRAY 16 GM BOTTLE NS SCH (09:05)
[2023-03-07] MEDS: CHLORHEXIDINE GLUCONATE 15 ML MOUTHWASH MM SCH ×2 (09:05→16:05)
[2023-03-07] MEDS: ZINC OXIDE TOP SCH ×2 (09:42→20:54)
[2023-03-07] MEDS: risperiDONE 0.25 MG TABLET GT SCH ×2 (09:42→16:05)
[2023-03-07] MEDS: DICLOFENAC SODIUM 100 GM GEL..GRAM. TP SCH ×2 (09:43→20:54)
[2023-03-07] MEDS: ENOXAPARIN SODIUM 40 MG/0.4 ML DISP.SYRIN SQ SCH (09:44)
[2023-03-07] MEDS: POTASSIUM CHLORIDE 40 MEQ/15 ML LIQUID GT SCH (09:46)
[2023-03-07] MEDS: DOCUSATE SODIUM 100 MG/10 ML LIQUID UDC GT SCH ×2 (09:46→20:54)
[2023-03-07] MEDS: FLUOXETINE HCL 40 MG CAPSULE GT SCH ×2 (09:47→12:18)
[2023-03-07] MEDS: OLOPATADINE 0.1% OPHT DROP 5 ML BOTTLE EACHEYE SCH ×2 (09:48→16:05)
[2023-03-07] MEDS: LORATADINE 10 MG TABLET GT SCH (09:48)
[2023-03-07] MEDS: [UNRECOGNIZED DRUG - OTHER] TP SCH ×2 (09:50→20:54)
[2023-03-07] MEDS: VITAMIN E TP SCH ×2 (09:50→20:54)
[2023-03-07] MEDS: HYDROMORPHONE HCL 4 MG TABLET GT PRN ×2 (09:58→18:28)
[2023-03-07] MEDS: LORAZEPAM 1 MG TABLET GT PRN ×2 (12:25→20:55)
[2023-03-07 20:00] VITALS: TEMP 97.7
[2023-03-07] MEDS: hydrOXYzine HCL 25 MG TABLET GT SCH (20:54)
[2023-03-07] MEDS: MELATONIN 3 MG TABLET GT SCH (20:54)
[2023-03-07] MEDS: ACETAMINOPHEN 650 MG/20 ML UDC- SA PATIENTS-PAIN ONLY GT PRN (20:56)
[2023-03-08] MEDS: IPRATROPIUM BROMIDE 0.5 MG/2.5 ML NEBU NEB SCH ×4 (01:54→19:20)
[2023-03-08] MEDS: GABAPENTIN 300 MG/6 ML GT SCH ×3 (06:00→20:21)
[2023-03-08] MEDS: RILUZOLE 50 MG TAB GT SCH ×2 (06:00→17:08)
[2023-03-08] MEDS: OMEPRAZOLE 20 MG CAPSULE.DR GT SCH (06:00)
[2023-03-08 08:00] VITALS: BP 111/70; TEMP 97.8; O2SAT 100
[2023-03-08] MEDS: HYDROMORPHONE HCL 4 MG TABLET GT PRN ×2 (08:57→13:14)
[2023-03-08] MEDS: OLOPATADINE 0.1% OPHT DROP 5 ML BOTTLE EACHEYE SCH ×2 (09:30→16:21)
[2023-03-08] MEDS: LORATADINE 10 MG TABLET GT SCH (09:30)
[2023-03-08] MEDS: DOCUSATE SODIUM 100 MG/10 ML LIQUID UDC GT SCH ×2 (09:30→20:21)
[2023-03-08] MEDS: risperiDONE 0.25 MG TABLET GT SCH ×2 (09:31→16:21)
[2023-03-08] MEDS: FLUOXETINE HCL 40 MG CAPSULE GT SCH ×2 (09:31→13:12)
[2023-03-08] MEDS: POTASSIUM CHLORIDE 40 MEQ/15 ML LIQUID GT SCH (09:31)
[2023-03-08] MEDS: HYDROGEN PEROXIDE 3% 118 ML BOTTLE TP SCH ×2 (09:31→19:20)
[2023-03-08] MEDS: FLUTICASONE PROP NASAL SPRAY 16 GM BOTTLE NS SCH (09:32)
[2023-03-08] MEDS: DICLOFENAC SODIUM 100 GM GEL..GRAM. TP SCH ×2 (09:32→20:22)
[2023-03-08] MEDS: ZINC OXIDE TOP SCH ×2 (09:32→20:21)
[2023-03-08] MEDS: CHLORHEXIDINE GLUCONATE 15 ML MOUTHWASH MM SCH ×2 (09:32→16:21)
[2023-03-08] MEDS: [UNRECOGNIZED DRUG - OTHER] TP SCH ×2 (09:33→20:22)
[2023-03-08] MEDS: VITAMIN E TP SCH ×2 (09:33→20:22)
[2023-03-08] MEDS: ENOXAPARIN SODIUM 40 MG/0.4 ML DISP.SYRIN SQ SCH (09:43)
[2023-03-08] MEDS: ACETAMINOPHEN 650 MG/20 ML UDC- SA PATIENTS-PAIN ONLY GT PRN ×2 (16:21→22:37)
[2023-03-08 19:58] VITALS: TEMP 98.6
[2023-03-08] MEDS: LORAZEPAM 1 MG TABLET GT PRN (20:10)
[2023-03-08] MEDS: hydrOXYzine HCL 25 MG TABLET GT SCH (20:21)
[2023-03-08] MEDS: MELATONIN 3 MG TABLET GT SCH (20:21)
[2023-03-09] MEDS: IPRATROPIUM BROMIDE 0.5 MG/2.5 ML NEBU NEB SCH ×4 (01:07→19:16)
[2023-03-09] MEDS: OMEPRAZOLE 20 MG CAPSULE.DR GT SCH (05:43)
[2023-03-09] MEDS: RILUZOLE 50 MG TAB GT SCH ×2 (05:43→17:53)
[2023-03-09] MEDS: ACETAMINOPHEN 650 MG/20 ML UDC- SA PATIENTS-PAIN ONLY GT PRN ×2 (05:43→20:05)
[2023-03-09] MEDS: GABAPENTIN 300 MG/6 ML GT SCH ×3 (05:43→20:03)
[2023-03-09] MEDS: JEVITY 1.2 1000 ML LIQUID GT PRN (05:43)
[2023-03-09 08:17] VITALS: BP 101/51; TEMP 97.6; O2SAT 100
[2023-03-09] MEDS: CHLORHEXIDINE GLUCONATE 15 ML MOUTHWASH MM SCH ×2 (09:00→17:53)
[2023-03-09] MEDS: HYDROGEN PEROXIDE 3% 118 ML BOTTLE TP SCH ×2 (09:25→19:16)
[2023-03-09] MEDS: DOCUSATE SODIUM 100 MG/10 ML LIQUID UDC GT SCH ×2 (09:28→20:03)
[2023-03-09] MEDS: OLOPATADINE 0.1% OPHT DROP 5 ML BOTTLE EACHEYE SCH ×2 (09:28→17:53)
[2023-03-09] MEDS: LORATADINE 10 MG TABLET GT SCH (09:28)
[2023-03-09] MEDS: FLUOXETINE HCL 40 MG CAPSULE GT SCH ×2 (09:29→12:04)
[2023-03-09] MEDS: FLUTICASONE PROP NASAL SPRAY 16 GM BOTTLE NS SCH (09:29)
[2023-03-09] MEDS: risperiDONE 0.25 MG TABLET GT SCH ×2 (09:29→17:53)
[2023-03-09] MEDS: POTASSIUM CHLORIDE 40 MEQ/15 ML LIQUID GT SCH (09:31)
[2023-03-09] MEDS: DICLOFENAC SODIUM 100 GM GEL..GRAM. TP SCH ×2 (09:31→20:04)
[2023-03-09] MEDS: ZINC OXIDE TOP SCH ×2 (09:31→20:04)
[2023-03-09] MEDS: [UNRECOGNIZED DRUG - OTHER] TP SCH ×2 (09:32→20:04)
[2023-03-09] MEDS: VITAMIN E TP SCH ×2 (09:32→20:04)
[2023-03-09] MEDS: ENOXAPARIN SODIUM 40 MG/0.4 ML DISP.SYRIN SQ SCH (09:37)
[2023-03-09] MEDS: HYDROMORPHONE HCL 4 MG TABLET GT PRN ×3 (09:39→17:53)
[2023-03-09] MEDS: LORAZEPAM 1 MG TABLET GT PRN ×2 (12:04→20:04)
[2023-03-09] MEDS: MELATONIN 3 MG TABLET GT SCH (20:03)
[2023-03-09] MEDS: hydrOXYzine HCL 25 MG TABLET GT SCH (20:03)
[2023-03-09 20:31] VITALS: TEMP 98
[2023-03-10] MEDS: IPRATROPIUM BROMIDE 0.5 MG/2.5 ML NEBU NEB SCH ×4 (00:33→19:17)
[2023-03-10] MEDS: GABAPENTIN 300 MG/6 ML GT SCH ×3 (05:46→20:30)
[2023-03-10] MEDS: JEVITY 1.2 1000 ML LIQUID GT PRN (05:46)
[2023-03-10] MEDS: OMEPRAZOLE 20 MG CAPSULE.DR GT SCH (05:46)
[2023-03-10] MEDS: RILUZOLE 50 MG TAB GT SCH ×2 (05:46→17:48)
[2023-03-10 07:50] VITALS: TEMP 98
[2023-03-10] MEDS: DOCUSATE SODIUM 100 MG/10 ML LIQUID UDC GT SCH ×2 (09:00→20:30)
[2023-03-10] MEDS: HYDROGEN PEROXIDE 3% 118 ML BOTTLE TP SCH ×2 (09:10→19:17)
[2023-03-10] MEDS: OLOPATADINE 0.1% OPHT DROP 5 ML BOTTLE EACHEYE SCH ×2 (09:34→17:47)
[2023-03-10] MEDS: HYDROMORPHONE HCL 4 MG TABLET GT PRN ×2 (09:34→17:45)
[2023-03-10] MEDS: LORATADINE 10 MG TABLET GT SCH (09:35)
[2023-03-10] MEDS: risperiDONE 0.25 MG TABLET GT SCH ×2 (09:35→17:48)
[2023-03-10] MEDS: FLUOXETINE HCL 40 MG CAPSULE GT SCH ×2 (09:35→12:39)
[2023-03-10] MEDS: ZINC OXIDE TOP SCH ×2 (09:36→20:30)
[2023-03-10] MEDS: DICLOFENAC SODIUM 100 GM GEL..GRAM. TP SCH ×2 (09:36→20:30)
[2023-03-10] MEDS: CHLORHEXIDINE GLUCONATE 15 ML MOUTHWASH MM SCH ×2 (09:36→17:48)
[2023-03-10] MEDS: VITAMIN E TP SCH ×2 (09:36→20:30)
[2023-03-10] MEDS: FLUTICASONE PROP NASAL SPRAY 16 GM BOTTLE NS SCH (09:36)
[2023-03-10] MEDS: [UNRECOGNIZED DRUG - OTHER] TP SCH ×2 (09:36→20:30)
[2023-03-10] MEDS: ENOXAPARIN SODIUM 40 MG/0.4 ML DISP.SYRIN SQ SCH (09:39)
[2023-03-10] MEDS: POTASSIUM CHLORIDE 40 MEQ/15 ML LIQUID GT SCH (09:41)
[2023-03-10] MEDS: LORAZEPAM 1 MG TABLET GT PRN ×2 (12:40→20:30)
[2023-03-10 20:00] VITALS: TEMP 98.2
[2023-03-10 20:04] VITALS: TEMP 98.2
[2023-03-10] MEDS: MELATONIN 3 MG TABLET GT SCH (20:30)
[2023-03-10] MEDS: hydrOXYzine HCL 25 MG TABLET GT SCH (20:30)
[2023-03-11] MEDS: IPRATROPIUM BROMIDE 0.5 MG/2.5 ML NEBU NEB SCH ×4 (02:09→19:04)
[2023-03-11] MEDS: JEVITY 1.2 1000 ML LIQUID GT PRN ×2 (02:19→18:45)
[2023-03-11] MEDS: HYDROMORPHONE HCL 4 MG TABLET GT PRN ×3 (02:57→18:28)
[2023-03-11] MEDS: OMEPRAZOLE 20 MG CAPSULE.DR GT SCH (05:24)
[2023-03-11] MEDS: GABAPENTIN 300 MG/6 ML GT SCH ×3 (05:24→20:31)
[2023-03-11] MEDS: RILUZOLE 50 MG TAB GT SCH ×2 (05:24→18:24)
[2023-03-11] MEDS: HYDROGEN PEROXIDE 3% 118 ML BOTTLE TP SCH ×2 (07:20→21:24)
[2023-03-11 08:00] VITALS: TEMP 97.9
[2023-03-11] MEDS: [UNRECOGNIZED DRUG - OTHER] TP SCH ×2 (09:00→20:32)
[2023-03-11] MEDS: FLUTICASONE PROP NASAL SPRAY 16 GM BOTTLE NS SCH (09:00)
[2023-03-11] MEDS: risperiDONE 0.25 MG TABLET GT SCH ×2 (09:00→17:00)
[2023-03-11] MEDS: DOCUSATE SODIUM 100 MG/10 ML LIQUID UDC GT SCH ×2 (09:00→20:31)
[2023-03-11] MEDS: OLOPATADINE 0.1% OPHT DROP 5 ML BOTTLE EACHEYE SCH ×2 (09:00→17:00)
[2023-03-11] MEDS: LORATADINE 10 MG TABLET GT SCH (09:00)
[2023-03-11] MEDS: ZINC OXIDE TOP SCH ×2 (09:00→20:32)
[2023-03-11] MEDS: VITAMIN E TP SCH ×2 (09:00→20:32)
[2023-03-11] MEDS: DICLOFENAC SODIUM 100 GM GEL..GRAM. TP SCH ×2 (09:00→20:32)
[2023-03-11] MEDS: POTASSIUM CHLORIDE 40 MEQ/15 ML LIQUID GT SCH (09:00)
[2023-03-11] MEDS: ENOXAPARIN SODIUM 40 MG/0.4 ML DISP.SYRIN SQ SCH (09:00)
[2023-03-11] MEDS: CHLORHEXIDINE GLUCONATE 15 ML MOUTHWASH MM SCH ×2 (09:00→17:00)
[2023-03-11] MEDS: FLUOXETINE HCL 40 MG CAPSULE GT SCH ×2 (09:00→13:26)
[2023-03-11] MEDS: LORAZEPAM 1 MG TABLET GT PRN ×2 (13:26→20:30)
[2023-03-11] MEDS: ACETAMINOPHEN 650 MG/20 ML UDC- SA PATIENTS-PAIN ONLY GT PRN (13:29)
[2023-03-11 20:00] VITALS: TEMP 98
[2023-03-11] MEDS: hydrOXYzine HCL 25 MG TABLET GT SCH (20:31)
[2023-03-11] MEDS: MELATONIN 3 MG TABLET GT SCH (20:31)
[2023-03-12] MEDS: IPRATROPIUM BROMIDE 0.5 MG/2.5 ML NEBU NEB SCH ×4 (01:06→19:24)
[2023-03-12] MEDS: GABAPENTIN 300 MG/6 ML GT SCH ×3 (05:08→20:41)
[2023-03-12] MEDS: OMEPRAZOLE 20 MG CAPSULE.DR GT SCH (05:08)
[2023-03-12] MEDS: RILUZOLE 50 MG TAB GT SCH ×2 (05:08→18:10)
[2023-03-12 07:43] VITALS: TEMP 98.5
[2023-03-12] MEDS: FLUOXETINE HCL 40 MG CAPSULE GT SCH ×2 (08:41→12:01)
[2023-03-12] MEDS: LORATADINE 10 MG TABLET GT SCH (08:41)
[2023-03-12] MEDS: OLOPATADINE 0.1% OPHT DROP 5 ML BOTTLE EACHEYE SCH ×2 (08:41→17:00)
[2023-03-12] MEDS: DOCUSATE SODIUM 100 MG/10 ML LIQUID UDC GT SCH ×2 (08:41→20:41)
[2023-03-12] MEDS: POTASSIUM CHLORIDE 40 MEQ/15 ML LIQUID GT SCH (08:42)
[2023-03-12] MEDS: CHLORHEXIDINE GLUCONATE 15 ML MOUTHWASH MM SCH ×2 (08:44→16:10)
[2023-03-12] MEDS: risperiDONE 0.25 MG TABLET GT SCH ×2 (08:44→17:00)
[2023-03-12] MEDS: FLUTICASONE PROP NASAL SPRAY 16 GM BOTTLE NS SCH (08:44)
[2023-03-12] MEDS: ENOXAPARIN SODIUM 40 MG/0.4 ML DISP.SYRIN SQ SCH (08:45)
[2023-03-12] MEDS: ZINC OXIDE TOP SCH ×2 (08:46→20:41)
[2023-03-12] MEDS: DICLOFENAC SODIUM 100 GM GEL..GRAM. TP SCH ×2 (08:46→20:41)
[2023-03-12] MEDS: VITAMIN E TP SCH ×2 (08:47→20:42)
[2023-03-12] MEDS: [UNRECOGNIZED DRUG - OTHER] TP SCH ×2 (08:47→20:42)
[2023-03-12] MEDS: HYDROMORPHONE HCL 4 MG TABLET GT PRN ×2 (08:49→18:11)
[2023-03-12] MEDS: HYDROGEN PEROXIDE 3% 118 ML BOTTLE TP SCH ×2 (09:57→19:24)
[2023-03-12] MEDS: LORAZEPAM 1 MG TABLET GT PRN ×2 (12:01→21:00)
[2023-03-12] MEDS: JEVITY 1.2 1000 ML LIQUID GT PRN ×2 (16:19→18:12)
[2023-03-12] MEDS: hydrOXYzine HCL 25 MG TABLET GT SCH (20:41)
[2023-03-12] MEDS: MELATONIN 3 MG TABLET GT SCH (20:41)
[2023-03-13 00:19] VITALS: TEMP 98.4
[2023-03-13] MEDS: IPRATROPIUM BROMIDE 0.5 MG/2.5 ML NEBU NEB SCH ×4 (01:26→19:07)
[2023-03-13] MEDS: HYDROMORPHONE HCL 4 MG TABLET GT PRN ×3 (04:20→18:12)
[2023-03-13] MEDS: OMEPRAZOLE 20 MG CAPSULE.DR GT SCH (06:40)
[2023-03-13] MEDS: GABAPENTIN 300 MG/6 ML GT SCH ×3 (06:40→21:17)
[2023-03-13] MEDS: RILUZOLE 50 MG TAB GT SCH ×2 (06:40→18:10)
[2023-03-13 08:00] VITALS: TEMP 98.5
[2023-03-13] MEDS: POTASSIUM CHLORIDE 40 MEQ/15 ML LIQUID GT SCH (09:00)
[2023-03-13] MEDS: risperiDONE 0.25 MG TABLET GT SCH ×2 (09:00→17:00)
[2023-03-13] MEDS: ENOXAPARIN SODIUM 40 MG/0.4 ML DISP.SYRIN SQ SCH (09:00)
[2023-03-13] MEDS: ZINC OXIDE TOP SCH ×2 (09:00→21:17)
[2023-03-13] MEDS: FLUTICASONE PROP NASAL SPRAY 16 GM BOTTLE NS SCH (09:00)
[2023-03-13] MEDS: CHLORHEXIDINE GLUCONATE 15 ML MOUTHWASH MM SCH ×2 (09:00→17:00)
[2023-03-13] MEDS: VITAMIN E TP SCH ×2 (09:00→21:17)
[2023-03-13] MEDS: [UNRECOGNIZED DRUG - OTHER] TP SCH ×2 (09:00→21:17)
[2023-03-13] MEDS: DICLOFENAC SODIUM 100 GM GEL..GRAM. TP SCH ×2 (09:00→21:17)
[2023-03-13] MEDS: HYDROGEN PEROXIDE 3% 118 ML BOTTLE TP SCH ×2 (09:49→19:07)
[2023-03-13] MEDS: LORATADINE 10 MG TABLET GT SCH (09:58)
[2023-03-13] MEDS: OLOPATADINE 0.1% OPHT DROP 5 ML BOTTLE EACHEYE SCH ×2 (09:58→17:00)
[2023-03-13] MEDS: FLUOXETINE HCL 40 MG CAPSULE GT SCH ×2 (09:59→13:54)
[2023-03-13] MEDS: DOCUSATE SODIUM 100 MG/10 ML LIQUID UDC GT SCH ×2 (09:59→21:17)
[2023-03-13] MEDS: LORAZEPAM 1 MG TABLET GT PRN ×2 (12:19→21:00)
[2023-03-13] MEDS: ACETAMINOPHEN 650 MG/20 ML UDC- SA PATIENTS-PAIN ONLY GT PRN (12:20)
[2023-03-13] MEDS: JEVITY 1.2 1000 ML LIQUID GT PRN (16:00)
[2023-03-13] MEDS: MELATONIN 3 MG TABLET GT SCH (21:17)
[2023-03-13] MEDS: hydrOXYzine HCL 25 MG TABLET GT SCH (21:17)
[2023-03-13 22:52] VITALS: TEMP 98.3
[2023-03-14] MEDS: IPRATROPIUM BROMIDE 0.5 MG/2.5 ML NEBU NEB SCH ×4 (01:03→19:21)
[2023-03-14] MEDS: ACETAMINOPHEN 650 MG/20 ML UDC- SA PATIENTS-PAIN ONLY GT PRN (05:55)
[2023-03-14] MEDS: GABAPENTIN 300 MG/6 ML GT SCH ×3 (06:03→20:04)
[2023-03-14] MEDS: RILUZOLE 50 MG TAB GT SCH ×2 (06:04→18:07)
[2023-03-14] MEDS: OMEPRAZOLE 20 MG CAPSULE.DR GT SCH (06:04)
[2023-03-14 07:47] VITALS: TEMP 98.3
[2023-03-14] MEDS: HYDROGEN PEROXIDE 3% 118 ML BOTTLE TP SCH ×2 (09:32→19:21)
[2023-03-14] MEDS: LORATADINE 10 MG TABLET GT SCH (09:40)
[2023-03-14] MEDS: DOCUSATE SODIUM 100 MG/10 ML LIQUID UDC GT SCH ×2 (09:40→20:04)
[2023-03-14] MEDS: OLOPATADINE 0.1% OPHT DROP 5 ML BOTTLE EACHEYE SCH ×2 (09:40→17:38)
[2023-03-14] MEDS: FLUOXETINE HCL 40 MG CAPSULE GT SCH ×2 (09:41→13:53)
[2023-03-14] MEDS: POTASSIUM CHLORIDE 40 MEQ/15 ML LIQUID GT SCH (09:41)
[2023-03-14] MEDS: risperiDONE 0.25 MG TABLET GT SCH ×2 (09:42→17:38)
[2023-03-14] MEDS: CHLORHEXIDINE GLUCONATE 15 ML MOUTHWASH MM SCH ×2 (09:42→17:38)
[2023-03-14] MEDS: ZINC OXIDE TOP SCH ×2 (09:43→20:04)
[2023-03-14] MEDS: DICLOFENAC SODIUM 100 GM GEL..GRAM. TP SCH ×2 (09:43→20:04)
[2023-03-14] MEDS: FLUTICASONE PROP NASAL SPRAY 16 GM BOTTLE NS SCH (09:43)
[2023-03-14] MEDS: VITAMIN E TP SCH ×2 (09:45→20:04)
[2023-03-14] MEDS: [UNRECOGNIZED DRUG - OTHER] TP SCH ×2 (09:45→20:04)
[2023-03-14] MEDS: ENOXAPARIN SODIUM 40 MG/0.4 ML DISP.SYRIN SQ SCH (09:47)
[2023-03-14] MEDS: HYDROMORPHONE HCL 4 MG TABLET GT PRN ×3 (09:51→18:08)
[2023-03-14] MEDS: JEVITY 1.2 1000 ML LIQUID GT PRN (15:13)
[2023-03-14] MEDS: LORAZEPAM 1 MG TABLET GT PRN ×2 (15:23→19:59)
[2023-03-14] MEDS: hydrOXYzine HCL 25 MG TABLET GT SCH (20:04)
[2023-03-14] MEDS: MELATONIN 3 MG TABLET GT SCH (20:04)
[2023-03-14 20:57] VITALS: TEMP 98.3
[2023-03-15] MEDS: IPRATROPIUM BROMIDE 0.5 MG/2.5 ML NEBU NEB SCH (01:35)
[2023-03-15] MEDS: RILUZOLE 50 MG TAB GT SCH (06:02)
[2023-03-15] MEDS: OMEPRAZOLE 20 MG CAPSULE.DR GT SCH (06:02)
[2023-03-15] MEDS: GABAPENTIN 300 MG/6 ML GT SCH (06:02)
[2023-03-15] MEDS: ACETAMINOPHEN 650 MG/20 ML UDC- SA PATIENTS-PAIN ONLY GT PRN (06:03)
== END 2023-03-13 23:59 | disposition still patient (30) | DRG 130 ==
LOC: SA 18:25 → SA1 10-07 18:42 → SA 10-10 19:46
PROVIDERS: ADMIT Internal Medicine; ATTEND Internal Medicine
PROC: 5A1955Z Respiratory Ventilation, Greater than 96 Consecutive Hours (ICD-10-PCS; principal; 2022-05-06)
DX: J96.11 Chronic respiratory failure with hypoxia (principal); E43 Unspecified severe protein-calorie malnutrition; K85.90 Acute pancreatitis without necrosis or infection, unspecified; G12.21 Amyotrophic lateral sclerosis; R53.2 Functional quadriplegia; K80.12 Calculus of gallbladder with acute and chronic cholecystitis without obstruction; D68.59 Other primary thrombophilia; D63.8 Anemia in other chronic diseases classified elsewhere; B37.31 Acute candidiasis of vulva and vagina; F33.2 Major depressive disorder, recurrent severe without psychotic features; Z93.0 Tracheostomy status; J96.12 Chronic respiratory failure with hypercapnia; B96.20 Unspecified Escherichia coli [E. coli] as the cause of diseases classified elsewhere; E78.5 Hyperlipidemia, unspecified; E87.6 Hypokalemia; F41.0 Panic disorder [episodic paroxysmal anxiety]; G89.29 Other chronic pain; H00.014 Hordeolum externum left upper eyelid; I51.7 Cardiomegaly; J95.03 Malfunction of tracheostomy stoma; Z93.1 Gastrostomy status; L29.9 Pruritus, unspecified; L60.0 Ingrowing nail; M47.817 Spondylosis without myelopathy or radiculopathy, lumbosacral region; M48.07 Spinal stenosis, lumbosacral region; M48.061 Spinal stenosis, lumbar region without neurogenic claudication; N39.0 Urinary tract infection, site not specified; R13.10 Dysphagia, unspecified; Z66 Do not resuscitate; R62.7 Adult failure to thrive; Z79.899 Other long term (current) drug therapy; Z86.718 Personal history of other venous thrombosis and embolism
CPT/HCPCS: 36415; 36600; 71045; 73130; 74018; 76700; 76856; 82803; 83735; 84100; 84132; 84520; 85025; 85651; 86038; 86140; 86580; 87040; 90686; 93307; 94003; 94640; A4663; A6209; A6213; C1758; J0692; J0696; J1650; J3370; J3490; J3535; J3590; J7050; J8499; U0003

== ENCOUNTER 2022-06-10 11:05 | Outpatient (CLI) | payer OTHER ==
[2022-06-10] MEDS ORDERED: IOHEXOL 300MG/ML 100 ML INFUS..BTL ONE (13:13)
== END 2022-06-10 23:59 | disposition home or self-care (01) ==
LOC: RAD 11:05
PROVIDERS: ATTEND Internal Medicine
DX: K81.9 Cholecystitis, unspecified (principal); Z93.50 Unspecified cystostomy status
CPT/HCPCS: 74290; Q9967

== ENCOUNTER 2024-03-14 | Inpatient (IN) | payer OTHER ==
[~2024-03-14] VITALS: Ht 157.5 cm; Wt 56.7 kg
[2024-03-15] MEDS: IPRATROPIUM BROMIDE 0.5 MG/2.5 ML NEBU NEB SCH (07:35)
[2024-03-15] MEDS: HYDROMORPHONE HCL 4 MG TABLET GT PRN (08:19)
[2024-03-15] MEDS: LORATADINE 10 MG TABLET GT SCH (09:00)
[2024-03-15] MEDS: DOCUSATE SODIUM 100 MG/10 ML LIQUID UDC GT SCH (09:00)
[2024-03-15] MEDS: FLUTICASONE PROP NASAL SPRAY 16 GM BOTTLE NS SCH (09:00)
[2024-03-15] MEDS: VITAMIN E TP SCH (09:00)
[2024-03-15] MEDS: ZINC OXIDE TOP SCH (09:00)
[2024-03-15] MEDS: CHLORHEXIDINE GLUCONATE 15 ML MOUTHWASH MM SCH (09:00)
[2024-03-15] MEDS: FLUOXETINE HCL 40 MG CAPSULE GT SCH (09:00)
[2024-03-15] MEDS: [UNRECOGNIZED DRUG - OTHER] TP SCH (09:00)
[2024-03-15] MEDS: CEPHALEXIN MONOHYDRATE 125 MG/5 ML SUSPENSION 100ML GT SCH (09:00)
[2024-03-15] MEDS: DICLOFENAC SODIUM 50 GM GEL..GRAM. TP SCH (09:00)
[2024-03-15] MEDS ORDERED: MAG HYDROX/AL HYDROX/SIMETH 30 ML LIQUID UDC GT PRN (09:30)
[2024-03-15] MEDS: HYDROGEN PEROXIDE 3% 118 ML BOTTLE TP SCH (09:35)
[2024-03-15] MEDS ORDERED: FLEET ENEMA 133 ML BOTTLE RC PRN (09:45)
[2024-03-15] MEDS ORDERED: ZINC OXIDE TOP PRN (09:45)
[2024-03-15] MEDS: GABAPENTIN 400 MG CAPSULE GT SCH ×2 (13:40→20:39)
[2024-03-15] MEDS: LORAZEPAM 1 MG TABLET GT PRN (13:40)
[2024-03-15] MEDS: GLYCOPYRROLATE 1 MG TABLET GT SCH (13:40)
[2024-03-15] MEDS: ACETAMINOPHEN 650 MG/20 ML UDC- SA PATIENTS-PAIN ONLY GT PRN (13:42)
[2024-03-15] MEDS: RILUZOLE 50 MG TAB GT SCH (18:05)
[2024-03-15] MEDS: RIVAROXABAN 10 MG TABLET GT SCH (18:20)
[2024-03-15 20:00] VITALS: BP 131/75; TEMP 98.5
[2024-03-15] MEDS: MINERAL OIL/PETROLAT OPHT OINT 3.5 GM TUBE EACHEYE SCH (20:38)
[2024-03-15] MEDS: ROSUVASTATIN CALCIUM 10 MG TABLET PO SCH (20:39)
[2024-03-15] MEDS: MELATONIN 3 MG TABLET GT SCH (20:39)
[2024-03-15] MEDS: JEVITY 1.2 1000 ML LIQUID GT PRN (22:51)
[2024-03-16] MEDS: OMEPRAZOLE 20 MG CAPSULE.DR GT SCH (05:39)
[2024-03-16] MEDS: BISACODYL 10 MG SUPP.RECT RC PRN (06:40)
[2024-03-16 07:55] VITALS: BP 113/69; TEMP 99
[2024-03-16] MEDS: POTASSIUM CHLORIDE 20 MEQ POWDER PACKET GT SCH (08:03)
[2024-03-16] MEDS: HYDROCODONE/APAP 5-325MG TABLET GT PRN (17:53)
[2024-03-17 00:23] VITALS: BP 117/70; TEMP 97.8
[2024-03-17 07:49] VITALS: BP 110/65; TEMP 98.5
[2024-03-17 20:00] VITALS: BP 116/65; TEMP 99.4
[2024-03-18 08:25] VITALS: BP 120/69; TEMP 98.2
[2024-03-18 19:52] VITALS: BP 139/73; TEMP 98.5
[2024-03-19 07:23] VITALS: BP 111/65; TEMP 98.5
[2024-03-19 20:00] VITALS: BP 113/67; TEMP 98.4
[2024-03-20 07:22] VITALS: BP 111/67; TEMP 97.8
[2024-03-20] MEDS: POLYVINYL ALCOHOL OPHT DROPS 15 ML BOTTLE EACHEYE PRN (16:56)
[2024-03-20 20:00] VITALS: BP 130/81; TEMP 98.5
[2024-03-21 07:54] VITALS: BP 116/71; TEMP 97.6
[2024-03-21 20:01] VITALS: BP 116/72; TEMP 97.8
[2024-03-22] MEDS: MAGNESIUM HYDROXIDE 30 ML LIQUID UDC GT PRN (04:06)
[2024-03-22 07:30] VITALS: BP 109/63; TEMP 97.5
[2024-03-22 20:01] VITALS: BP 101/63; TEMP 98.5
[2024-03-23 20:59] VITALS: BP 118/70; TEMP 98.3
[2024-03-24 22:37] VITALS: BP 96/64; TEMP 96.8; O2SAT 100
[2024-03-25 20:00] VITALS: BP 114/67; TEMP 99.2
[2024-03-26 07:22] VITALS: BP 117/67; TEMP 98.6
[2024-03-26 20:26] VITALS: BP 104/57; TEMP 98
[2024-03-27 07:32] VITALS: BP 111/61; TEMP 98.5
[2024-03-27 20:00] VITALS: BP 130/76; TEMP 98.4
[2024-03-27] MEDS: ROSUVASTATIN CALCIUM 10 MG TABLET GT SCH (20:20)
[2024-03-28 07:28] VITALS: BP 110/63; TEMP 97.8
[2024-03-28 20:53] VITALS: BP 125/73; TEMP 98.2
[2024-03-29 07:52] VITALS: BP 109/60; TEMP 98.6
[2024-03-29 20:17] VITALS: BP 108/64; TEMP 98.5
[2024-03-30 07:56] VITALS: BP 131/44; TEMP 96.3
[2024-03-30 20:20] VITALS: BP 109/54; TEMP 98
[2024-03-31 07:50] VITALS: TEMP 98.2
[2024-03-31 07:51] VITALS: BP 112/61
[2024-03-31 07:54] VITALS: BP 112/61; TEMP 98.2
[2024-03-31 20:17] VITALS: BP 113/68; TEMP 97.8
[2024-04-01 07:35] VITALS: BP 101/54; TEMP 98.4
[2024-04-01 20:08] VITALS: BP 108/59; TEMP 98.6
[2024-04-02 07:19] VITALS: BP 110/63; TEMP 98.5
[2024-04-02 10:00] VITALS: O2SAT 99
[2024-04-02 20:00] VITALS: BP 127/75; TEMP 98
[2024-04-03 07:29] VITALS: BP 107/58; TEMP 99.1
[2024-04-03 20:00] VITALS: BP 118/64; TEMP 98.3
[2024-04-04 07:49] VITALS: BP 109/64; TEMP 97.5
[2024-04-04 19:54] VITALS: BP 105/62; TEMP 98.3
[2024-04-04 23:00] VITALS: BP 114/60
[2024-04-05 07:54] VITALS: BP 106/62; TEMP 98.8
[2024-04-05 19:42] VITALS: BP 112/69; TEMP 98.2
[2024-04-06 12:01] VITALS: BP 105/64; TEMP 98
[2024-04-06 20:02] VITALS: BP 118/67; TEMP 98.1
[2024-04-07 08:00] VITALS: BP 124/71; TEMP 97.8
[2024-04-07 19:49] VITALS: BP 108/53; TEMP 98.9
[2024-04-08 19:55] VITALS: BP 133/72; TEMP 99.8
[2024-04-09 07:34] VITALS: BP 118/71; TEMP 97
[2024-04-09 19:50] VITALS: BP 101/59; TEMP 98
[2024-04-10 07:28] VITALS: BP 106/64; TEMP 97
[2024-04-10 19:52] VITALS: BP 115/63; TEMP 98.4
[2024-04-11 07:24] VITALS: BP 109/64; TEMP 97.9
[2024-04-11 20:02] VITALS: BP 107/71; TEMP 97.9
[2024-04-12 08:14] VITALS: BP 120/72; TEMP 98.2
[2024-04-12 20:00] VITALS: BP 127/75; TEMP 98.8
[2024-04-13 07:50] VITALS: BP 122/75; TEMP 97.7
[2024-04-13 20:28] VITALS: BP 113/63; TEMP 98.2
[2024-04-14 07:50] VITALS: BP 103/63; TEMP 97.6
[2024-04-14 20:00] VITALS: BP 116/67; TEMP 99.2
[2024-04-15 11:20] VITALS: TEMP 98.8
[2024-04-15 20:13] VITALS: BP 106/65; TEMP 98.7
[2024-04-16 07:31] VITALS: BP 118/73; TEMP 98.4
[2024-04-16 07:48] LABS: PLATELET COUNT (AUTO) 232 K/uL (179-408); RED BLOOD CELL COUNT(AUTO) 3.08 MIL/uL (3.63-4.92); RED CELL DISTRIBUTION WIDTH 13.4 % (12.3-17.7); WHITE BLOOD COUNT (AUTO) 6.5 K/uL (3.8-11.8)
[2024-04-16 08:20] LABS: ASPARTATE AMINOTRANSFERASE 17 U/L (15-37); CREATININE 0.2 mg/dL (0.6-1.3); SODIUM SERUM 136 mmol/L (136-145); TOTAL PROTEIN, SERUM 7.3 g/dL (6.4-8.2); UREA NITROGEN, BLOOD 16 mg/dL (7-18)
[2024-04-16 20:00] VITALS: BP 114/69; TEMP 97.7
[2024-04-17 07:36] VITALS: BP 104/65; TEMP 98.2
[2024-04-18 08:05] VITALS: BP 105/57; TEMP 98.2
[2024-04-18 20:00] VITALS: BP_SYST 103; BP_SYST 105; BP_DIAS 60; TEMP 97.9; O2SAT 99
[2024-04-19 07:49] VITALS: BP 101/57; TEMP 98.5
[2024-04-19 20:00] VITALS: BP_SYST 113; BP_SYST 133; BP_DIAS 66; TEMP 99.2
[2024-04-20 07:48] VITALS: BP 117/41; TEMP 98.6
[2024-04-20 20:00] VITALS: BP 114/71; TEMP 98.8
[2024-04-21 20:21] VITALS: BP 112/66; TEMP 98.5
[2024-04-22 08:17] VITALS: BP 104/62; TEMP 97.9
[2024-04-22 20:00] VITALS: BP 109/63; TEMP 98.3
[2024-04-23 07:31] VITALS: BP 130/78; TEMP 98
[2024-04-23 20:00] VITALS: BP 112/66; TEMP 99.2
[2024-04-24 07:40] VITALS: BP 114/65; TEMP 97.7
[2024-04-24 20:00] VITALS: BP 110/66; TEMP 98.4
[2024-04-25 07:46] VITALS: BP 116/65; TEMP 97.8
[2024-04-25 20:00] VITALS: BP 107/66; TEMP 97.8
[2024-04-26 07:56] VITALS: BP 109/69; TEMP 97.4
[2024-04-26 20:18] VITALS: BP 100/64; TEMP 98.6
[2024-04-27 08:02] VITALS: BP 105/59; TEMP 98.2
[2024-04-27 20:00] VITALS: BP 121/76; TEMP 98.4
[2024-04-28 08:16] VITALS: BP 105/64; TEMP 98.4
[2024-04-28 20:00] VITALS: BP 116/68; TEMP 98.4
[2024-04-29 07:42] VITALS: BP 107/62; TEMP 97.7
[2024-04-29 21:49] VITALS: BP 115/68; TEMP 95.6
[2024-04-30 07:41] VITALS: BP 110/58; TEMP 98.2
[2024-04-30 20:17] VITALS: BP 104/58; TEMP 98.1
[2024-05-01 07:27] VITALS: BP 116/63; TEMP 98.8
[2024-05-02 07:31] VITALS: BP 100/52; TEMP 98.3
[2024-05-02 20:21] VITALS: BP 133/76; TEMP 98
[2024-05-02] MEDS: HYDROMORPHONE HCL 2 MG TABLET PO PRN (22:29)
[2024-05-03 07:52] VITALS: BP 139/71; TEMP 98.1
[2024-05-03] MEDS: HYDROMORPHONE HCL 2 MG TABLET GT PRN (08:35)
[2024-05-03 20:00] VITALS: BP 131/78; TEMP 99.1
[2024-05-04 07:40] VITALS: BP 122/69; TEMP 98
[2024-05-04 13:05] VITALS: O2SAT 99
[2024-05-04 20:27] VITALS: BP 121/65; TEMP 99.1
[2024-05-04] MEDS: HYDROMORPHONE HCL 4 MG TABLET GT PRN (20:50)
[2024-05-05 07:46] VITALS: BP 138/86; TEMP 98
[2024-05-05] MEDS: LORAZEPAM 1 MG TABLET GT PRN ×2 (11:16→20:09)
[2024-05-05 20:00] VITALS: BP_SYST 117; BP_SYST 121; BP_DIAS 69; BP_DIAS 78; TEMP 98.7; TEMP 99.8
[2024-05-06 08:00] VITALS: BP 116/70; TEMP 98.6
[2024-05-06 19:58] VITALS: BP 110/68; TEMP 98.9
[2024-05-07 07:32] VITALS: BP 150/90; TEMP 98.4
[2024-05-07 20:27] VITALS: BP 120/80; TEMP 98.5
[2024-05-08 07:23] VITALS: BP 131/84; TEMP 98.4
[2024-05-08 20:00] VITALS: BP 115/71; TEMP 98.3
[2024-05-09 07:34] VITALS: BP 128/82; TEMP 98.6
[2024-05-09 20:05] VITALS: BP 130/80; TEMP 98.2
[2024-05-10] MEDS: HYDROGEN PEROXIDE 3% 118 ML BOTTLE TP PRN (07:30)
[2024-05-10 08:06] VITALS: BP 100/68; TEMP 97.8
[2024-05-10 20:00] VITALS: BP 107/73; TEMP 98.5
[2024-05-11 07:52] VITALS: BP 95/62; TEMP 98.4
[2024-05-11 20:00] VITALS: BP 117/74; TEMP 98.2
[2024-05-12 08:30] VITALS: BP 90/59; TEMP 97.8
[2024-05-12 20:23] VITALS: BP 107/66; TEMP 98.9
[2024-05-12 20:34] VITALS: BP 107/66; TEMP 98.9
[2024-05-13] MEDS: LORAZEPAM 1 MG TABLET GT PRN (04:12)
[2024-05-13 08:00] VITALS: BP 103/57; TEMP 98.6
[2024-05-13 20:00] VITALS: BP 128/82; TEMP 98.5
[2024-05-14 07:31] VITALS: BP 113/66; TEMP 97.8
[2024-05-14 20:16] VITALS: BP 108/63; TEMP 98
[2024-05-15 07:31] VITALS: BP 119/71; TEMP 98.4
[2024-05-15 20:21] VITALS: BP 120/51; TEMP 98
[2024-05-16 07:38] VITALS: BP 109/69; TEMP 97.9
[2024-05-17 08:15] VITALS: BP 103/68; TEMP 98.9; O2SAT 100
[2024-05-17 20:22] VITALS: BP 119/73; TEMP 97.8
[2024-05-18 20:17] VITALS: BP 112/69; TEMP 97.9
[2024-05-19 08:18] VITALS: BP 113/67; TEMP 97.5
[2024-05-19 20:00] VITALS: BP 110/65; TEMP 98.3
[2024-05-20 07:54] VITALS: BP 90/52; TEMP 97.9
[2024-05-20 19:54] VITALS: BP 106/64; TEMP 98.6
[2024-05-21 07:28] VITALS: BP 107/64; TEMP 98
[2024-05-21 20:00] VITALS: BP 113/72; TEMP 98.5
[2024-05-21] MEDS: NEOMY/BACITRA/POLYMYXIN B OINT UD PACKET TP SCH (20:31)
[2024-05-22 07:32] VITALS: BP 101/63; TEMP 98
[2024-05-22 20:00] VITALS: BP 120/72; TEMP 98.6
[2024-05-23 08:00] VITALS: BP 103/58; TEMP 97.9
[2024-05-23 20:00] VITALS: BP 104/60; TEMP 98.4
[2024-05-24 08:16] VITALS: BP 90/53; TEMP 97.9
[2024-05-24 20:20] VITALS: BP 92/53; TEMP 99.1
[2024-05-25 07:51] VITALS: BP 94/59; TEMP 98.1
[2024-05-25 20:00] VITALS: BP 117/67; TEMP 99.1
[2024-05-26 08:34] VITALS: BP 89/45; TEMP 96.5
[2024-05-26 20:00] VITALS: BP 117/63; TEMP 98.6
[2024-05-27 08:00] VITALS: BP 105/62; TEMP 98.6
[2024-05-27 20:00] VITALS: BP 109/67; TEMP 98.4
[2024-05-28 07:28] VITALS: BP 119/70; TEMP 98
[2024-05-28 20:34] VITALS: BP 104/62; TEMP 98.4
[2024-05-29 08:00] VITALS: BP 107/66; TEMP 98.2
[2024-05-29 20:27] VITALS: BP 108/64; TEMP 98.5
[2024-05-30 12:05] VITALS: BP 115/74; TEMP 98.2
[2024-05-30 20:39] VITALS: BP 113/65; TEMP 98.3
[2024-05-30] MEDS: NEOMY/BACITRA/POLYMYXIN B OINT UD PACKET TP SCH (21:00)
[2024-05-31 08:00] VITALS: BP 84/49; TEMP 97.8
[2024-05-31 12:05] VITALS: O2SAT 99
[2024-05-31] MEDS: HYDROMORPHONE HCL 2 MG TABLET GT PRN (20:20)
[2024-05-31 20:21] VITALS: BP 112/78; TEMP 97.5
[2024-06-01 07:42] VITALS: BP 112/67; TEMP 98.2
[2024-06-01] MEDS: HYDROMORPHONE HCL 4 MG TABLET GT PRN (16:41)
[2024-06-01 20:22] VITALS: BP 103/48; TEMP 98.3
[2024-06-01] MEDS: MUPIROCIN 2% OINT 22 GM TUBE TP SCH (20:35)
[2024-06-02 08:43] VITALS: BP 131/71; TEMP 97.8
[2024-06-02 20:28] VITALS: BP 128/74; TEMP 98.9
[2024-06-03 08:00] VITALS: BP 118/67; TEMP 97.5
[2024-06-03 20:24] VITALS: BP 126/85; TEMP 98.6
[2024-06-03 21:00] VITALS: TEMP 97.8
[2024-06-04 08:00] VITALS: BP 120/71; TEMP 98.6
[2024-06-04 20:16] VITALS: BP 123/63; TEMP 98.6
[2024-06-05 08:00] VITALS: BP 106/57; TEMP 98.7
[2024-06-05 20:00] VITALS: BP 119/74; TEMP 98.8
[2024-06-06 08:00] VITALS: BP 105/64; TEMP 98
[2024-06-06 20:00] VITALS: BP 103/56; TEMP 98.7
[2024-06-07 07:58] VITALS: BP 100/58; TEMP 98.3
[2024-06-07 20:00] VITALS: BP 119/71; TEMP 98.7
[2024-06-08 07:41] VITALS: BP 96/54; TEMP 97.8
[2024-06-08 20:00] VITALS: BP 121/68; TEMP 99.2
[2024-06-09 07:59] VITALS: BP 114/59; TEMP 98.4
[2024-06-09 20:00] VITALS: BP 118/69; TEMP 98.8
[2024-06-10 07:30] VITALS: BP 108/66; TEMP 98.4
[2024-06-10 20:00] VITALS: BP 112/68; TEMP 98.5
[2024-06-11 07:25] VITALS: BP 117/75; TEMP 98.8
[2024-06-11 20:06] VITALS: BP 111/72; TEMP 99.2
[2024-06-12 07:44] VITALS: BP 109/66; TEMP 97.9
[2024-06-12] MEDS: NEOMY/BACITRA/POLYMYXIN B OINT UD PACKET TP SCH (11:06)
[2024-06-12 19:59] VITALS: BP 111/69; TEMP 98.3
[2024-06-13 07:44] VITALS: BP 109/59; TEMP 98
[2024-06-13 20:30] VITALS: BP 114/65; TEMP 98.6
[2024-06-14 07:46] VITALS: BP 132/77; TEMP 97.8
[2024-06-14 19:55] VITALS: BP 109/64; TEMP 99.1
[2024-06-15 08:07] VITALS: BP 102/45; TEMP 97.7
[2024-06-15 20:00] VITALS: BP 127/72; TEMP 98.9
[2024-06-16 07:57] VITALS: BP 127/72; TEMP 97.7
[2024-06-16 20:00] VITALS: BP 111/64; TEMP 99
[2024-06-17 08:32] VITALS: TEMP 98.7
[2024-06-17 08:45] VITALS: BP 108/62
[2024-06-17 20:07] VITALS: BP 110/60; TEMP 98.8
[2024-06-18 08:00] VITALS: BP 114/74; TEMP 98.7
[2024-06-18 20:00] VITALS: BP 119/67; TEMP 98.8
[2024-06-19 07:35] VITALS: BP 112/67; TEMP 98.6
[2024-06-19] MEDS: NEOMY/BACITRA/POLYMYXIN B OINT UD PACKET TP SCH (09:29)
[2024-06-19] MEDS ORDERED: OLOPATADINE 0.1% OPHT DROP 5 ML BOTTLE EACHEYE SCH (17:00)
[2024-06-19] MEDS: OLOPATADINE 0.1% OPHT DROP 5 ML BOTTLE EACHEYE SCH (18:31)
[2024-06-19 20:34] VITALS: BP 111/60; TEMP 97.7
[2024-06-20 07:28] VITALS: BP 97/58; TEMP 98.3
[2024-06-20 20:00] VITALS: BP 113/64; TEMP 98.4
[2024-06-21 07:52] VITALS: BP 112/64; TEMP 97.7
[2024-06-21 20:00] VITALS: BP 116/64; TEMP 99.3
[2024-06-22 07:50] VITALS: BP 88/49; TEMP 98
[2024-06-22 09:48] VITALS: BP 104/57; TEMP 98
[2024-06-22 20:00] VITALS: BP 118/68; TEMP 98.4
[2024-06-23 07:57] VITALS: BP 103/62; TEMP 96.8
[2024-06-23 20:00] VITALS: BP 107/63; TEMP 98.6
[2024-06-24 11:30] VITALS: BP 98/48; TEMP 98
[2024-06-24 20:37] VITALS: BP 108/59; TEMP 97.9
[2024-06-25 08:00] VITALS: BP 98/65; TEMP 98.4
[2024-06-25 20:00] VITALS: BP 113/70; TEMP 98.2
[2024-06-26 07:34] VITALS: BP 107/60; TEMP 98
[2024-06-26 20:02] VITALS: BP 116/65; TEMP 97.9
[2024-06-27 08:00] VITALS: BP 110/67; TEMP 99
[2024-06-27 20:07] VITALS: BP 111/66; TEMP 98.9
[2024-06-28 07:43] VITALS: BP 102/54; TEMP 98.8
[2024-06-28 20:11] VITALS: BP 107/58; TEMP 99
[2024-06-29 07:41] VITALS: BP 109/60; TEMP 97.8
[2024-06-29 20:00] VITALS: BP 115/71; TEMP 98.8
[2024-06-30 19:57] VITALS: BP 111/63; TEMP 98.7
[2024-07-01 08:34] VITALS: BP 113/67; TEMP 98.7
[2024-07-01 10:30] VITALS: O2SAT 99
[2024-07-01 20:00] VITALS: BP 114/70; TEMP 98.4
[2024-07-02 10:49] VITALS: BP 112/63; TEMP 98
[2024-07-02 20:00] VITALS: BP 103/58; TEMP 100.3
[2024-07-03 07:34] VITALS: BP 117/69; TEMP 98.2
[2024-07-03 19:50] VITALS: BP 113/64; TEMP 98.9
[2024-07-04 08:00] VITALS: BP 111/66; TEMP 98.6
[2024-07-04] MEDS: HYDROMORPHONE HCL 2 MG TABLET GT PRN (14:02)
[2024-07-04 19:46] VITALS: BP 113/74; TEMP 98.5
[2024-07-05 07:32] VITALS: BP 90/53; TEMP 98.4
[2024-07-05 20:06] VITALS: BP 119/62; TEMP 98.7
[2024-07-06 08:00] VITALS: BP 95/59; TEMP 97.9
[2024-07-06 20:55] VITALS: BP 116/66; TEMP 99
[2024-07-07 08:04] VITALS: BP 115/66; TEMP 98
[2024-07-07 21:42] VITALS: BP 113/66; TEMP 97.4
[2024-07-08 08:00] VITALS: BP 101/68; TEMP 98.2
[2024-07-08 20:03] VITALS: BP 122/69; TEMP 98.4
[2024-07-09 07:28] VITALS: BP 101/71; TEMP 98.2
[2024-07-09 19:42] VITALS: BP 124/72; TEMP 99.4
[2024-07-10 07:25] VITALS: BP 108/64; TEMP 99
[2024-07-10 20:00] VITALS: BP 112/66; TEMP 98.7
[2024-07-11 07:45] VITALS: BP 116/68; TEMP 98.3
[2024-07-11 20:25] VITALS: BP 127/72; TEMP 98.5
[2024-07-12 07:43] VITALS: BP_SYST 110; BP_SYST 116; BP_DIAS 51; BP_DIAS 60; TEMP 98.1; TEMP 98.4
[2024-07-12] MEDS: NEOMY/BACITRA/POLYMYXIN B OINT UD PACKET TP SCH (08:40)
[2024-07-12 20:00] VITALS: BP 122/67; TEMP 98.8
[2024-07-12 20:28] VITALS: BP 122/67; TEMP 98.8
[2024-07-13 07:38] VITALS: BP 101/60; TEMP 97.8
[2024-07-13] MEDS: HYDROMORPHONE HCL 4 MG TABLET GT PRN (14:21)
[2024-07-13 20:00] VITALS: BP 125/75; TEMP 98.4
[2024-07-14 07:43] VITALS: BP 119/77; TEMP 98.2
[2024-07-14 20:00] VITALS: BP 110/68; TEMP 98.6
[2024-07-15 07:44] VITALS: BP 100/56; TEMP 98.3
[2024-07-15 20:00] VITALS: BP 113/63; TEMP 98.3
[2024-07-16 07:41] VITALS: BP 104/61; TEMP 98.6
[2024-07-16 20:00] VITALS: BP 108/69; TEMP 99
[2024-07-16 20:54] VITALS: BP 108/44; TEMP 98.6
[2024-07-17 07:21] VITALS: BP 95/40; TEMP 97.1
[2024-07-17 21:02] VITALS: BP 103/54; TEMP 98.6
[2024-07-18 07:27] VITALS: BP 90/48; TEMP 97.1
[2024-07-18 20:03] VITALS: BP 106/60; TEMP 99.3
[2024-07-19 07:41] VITALS: BP 102/63; TEMP 97.5
[2024-07-19 20:38] VITALS: BP 113/62; TEMP 97.9
[2024-07-20 07:57] VITALS: BP 115/67; TEMP 97.1
[2024-07-20 20:25] VITALS: BP 116/68; TEMP 97.6
[2024-07-20] MEDS: HYDROMORPHONE HCL 2 MG TABLET GT PRN (21:46)
[2024-07-21 08:00] VITALS: BP 112/66; TEMP 98.7
[2024-07-21] MEDS: HYDROMORPHONE HCL 4 MG TABLET GT PRN (13:42)
[2024-07-21 20:41] VITALS: BP 105/67; TEMP 98.7
[2024-07-22 07:30] VITALS: BP 107/57; TEMP 97.4
[2024-07-22 17:34] VITALS: BP 118/66; TEMP 97.6
[2024-07-22 20:26] VITALS: BP 106/61; TEMP 98.9
[2024-07-23 07:52] VITALS: BP 107/58; TEMP 98.7
[2024-07-23 12:19] LABS: PLATELET COUNT (AUTO) 194 K/uL (179-408); RED BLOOD CELL COUNT(AUTO) 3.21 MIL/uL (3.63-4.92); RED CELL DISTRIBUTION WIDTH 13.2 % (12.3-17.7); WHITE BLOOD COUNT (AUTO) 5.1 K/uL (3.8-11.8)
[2024-07-23 12:31] LABS: ASPARTATE AMINOTRANSFERASE 13 U/L (15-37); CREATININE 0.2 mg/dL (0.6-1.3); SODIUM SERUM 140 mmol/L (136-145); TOTAL PROTEIN, SERUM 7.7 g/dL (6.4-8.2); UREA NITROGEN, BLOOD 13 mg/dL (7-18)
[2024-07-23 20:06] VITALS: BP 121/67; TEMP 98.7
[2024-07-24 08:00] VITALS: BP 104/60; TEMP 97.9
[2024-07-24 20:00] VITALS: BP 108/62; TEMP 98.2
[2024-07-24] MEDS: LACTULOSE 20 G/30 ML LIQUID UDC GT SCH (20:24)
[2024-07-25 07:37] VITALS: BP 107/61; TEMP 98.6
[2024-07-25 20:00] VITALS: BP 117/64; TEMP 98.7
[2024-07-25] MEDS: NEOMY/BACITRA/POLYMYXIN B OINT UD PACKET TP SCH (20:28)
[2024-07-26 08:09] VITALS: BP 125/72; TEMP 98.5
[2024-07-26 20:00] VITALS: BP 112/66; TEMP 99
[2024-07-27 07:46] VITALS: BP 107/63; TEMP 97.6
[2024-07-27 20:07] VITALS: BP 109/73; TEMP 98.7
[2024-07-28 08:00] VITALS: BP 121/16; TEMP 98
[2024-07-28 20:00] VITALS: BP_SYST 113; BP_SYST 114; BP_DIAS 66; BP_DIAS 79; TEMP 97.7; TEMP 98.2
[2024-07-29 08:00] VITALS: BP 107/58; TEMP 97.6
[2024-07-29 20:22] VITALS: BP 112/70; TEMP 98.5
[2024-07-30] MEDS ORDERED: NEOMY/BACITRA/POLYMYXIN B OINT UD PACKET TP SCH (12:41)
[2024-07-30 20:25] VITALS: BP 106/64; TEMP 98.6
[2024-07-31] MEDS: DICLOFENAC SODIUM 50 GM GEL..GRAM. TP PRN (04:51)
[2024-07-31 07:38] VITALS: BP 106/66; TEMP 99.3
[2024-07-31 11:56] VITALS: BP 120/67
[2024-07-31 12:00] VITALS: O2SAT 100
[2024-07-31 20:09] VITALS: BP 108/68; TEMP 98.9
[2024-08-01 07:29] VITALS: BP 107/60; TEMP 98.8
[2024-08-01 20:00] VITALS: BP 105/60; TEMP 99
[2024-08-02 08:23] VITALS: BP 103/56; TEMP 97.9
[2024-08-02 20:01] VITALS: BP 114/68; TEMP 98.8
[2024-08-03 07:57] VITALS: BP 128/72; TEMP 98.5
[2024-08-03 19:39] VITALS: BP 122/75; TEMP 97.6
[2024-08-04 08:31] VITALS: BP 122/73; TEMP 97.4
[2024-08-04 19:56] VITALS: BP 110/66; TEMP 98.4
[2024-08-05] MEDS: LOPERAMIDE HCL 1 MG/7.5 ML LIQUID GT ONE (02:06)
[2024-08-05 19:59] VITALS: BP 125/71; TEMP 97.7
[2024-08-06 07:28] VITALS: BP 101/62; TEMP 97.9
[2024-08-06 20:00] VITALS: BP 115/67; TEMP 98.1
[2024-08-07 07:30] VITALS: BP 104/58; TEMP 98
[2024-08-07] MEDS: LACTULOSE 20 G/30 ML LIQUID UDC GT SCH (09:55)
[2024-08-07 20:00] VITALS: BP 122/68; TEMP 98.8
[2024-08-08 11:55] VITALS: BP 103/61; TEMP 97.9
[2024-08-08 20:10] VITALS: BP 120/67; TEMP 98.5
[2024-08-09 07:36] VITALS: BP 119/69; TEMP 97.6
[2024-08-09 20:00] VITALS: BP 118/67; TEMP 98.4
[2024-08-10 08:14] VITALS: BP 104/56; TEMP 97.7
[2024-08-10 20:07] VITALS: BP 100/70; TEMP 98.7
[2024-08-11 08:00] VITALS: BP 116/64; TEMP 98.2
[2024-08-11 20:00] VITALS: BP 102/66; TEMP 98.7
[2024-08-11 20:14] VITALS: BP 102/66; TEMP 98.7
[2024-08-12 08:00] VITALS: BP 106/54; TEMP 97.7
[2024-08-12 11:49] VITALS: BP 110/65
[2024-08-12 20:00] VITALS: BP 122/71; TEMP 98.6
[2024-08-13 08:01] VITALS: BP 127/79; TEMP 97.9
[2024-08-13 21:38] VITALS: BP 130/73; TEMP 98.5
[2024-08-14 07:40] VITALS: BP 128/66; TEMP 98.7
[2024-08-14 07:53] VITALS: BP 124/66; TEMP 98.7
[2024-08-14] MEDS: ACETAMINOPHEN 650 MG/20 ML UDC- SA PATIENTS-PAIN ONLY GT PRN (10:58)
[2024-08-14] MEDS: TUBERCULIN,PURIF.PROT.DERIV. 5 TU/0.1 ML TEST ID ONE (15:47)
[2024-08-14 19:50] VITALS: BP 111/61; TEMP 99.1
[2024-08-14] MEDS: LORAZEPAM 1 MG TABLET GT PRN (21:01)
[2024-08-15 07:36] VITALS: BP 96/60; TEMP 97.6
[2024-08-15 19:47] VITALS: BP 119/65; TEMP 98.4
[2024-08-15] MEDS: LORAZEPAM 1 MG TABLET GT PRN (20:48)
[2024-08-16 08:06] VITALS: BP 101/58; TEMP 97.7
[2024-08-16 20:00] VITALS: BP 131/79; TEMP 98
[2024-08-17 08:37] VITALS: BP 115/71; TEMP 98.1; O2SAT 100
[2024-08-17 20:00] VITALS: BP 115/65; TEMP 98.5
[2024-08-18 07:55] VITALS: BP 110/59; TEMP 98.6; O2SAT 99
[2024-08-18 20:00] VITALS: BP 115/67; TEMP 98.7
[2024-08-19 07:11] LABS: PLATELET COUNT (AUTO) 168 K/uL (179-408); RED BLOOD CELL COUNT(AUTO) 3.11 MIL/uL (3.63-4.92); RED CELL DISTRIBUTION WIDTH 13.4 % (12.3-17.7); WHITE BLOOD COUNT (AUTO) 7.3 K/uL (3.8-11.8)
[2024-08-19 07:31] VITALS: BP 106/59; TEMP 98.1
[2024-08-19 20:49] VITALS: BP_SYST 127; BP_SYST 134; BP_DIAS 59; BP_DIAS 81; TEMP 96.3; TEMP 98.5
[2024-08-20 07:42] VITALS: BP 111/59; TEMP 98.2
[2024-08-20 19:53] VITALS: BP 121/62; TEMP 98.8
[2024-08-21 07:28] VITALS: BP 107/59; TEMP 97.8
[2024-08-21 19:45] VITALS: BP 100/53; TEMP 98.1
[2024-08-22 07:48] VITALS: BP 99/48; TEMP 98.2
[2024-08-22 20:33] VITALS: BP 97/58; TEMP 97.3
[2024-08-23 08:00] VITALS: BP 105/68; TEMP 97.7
[2024-08-23 20:46] VITALS: BP 119/68; TEMP 98.6
[2024-08-24 01:56] VITALS: BP 110/61
[2024-08-24 20:32] VITALS: BP 136/80; TEMP 98.8
[2024-08-24] MEDS: HYDROMORPHONE HCL 2 MG TABLET GT PRN (22:00)
[2024-08-25 08:19] VITALS: BP 135/74; TEMP 97.7
[2024-08-25 19:00] VITALS: BP 110/71; TEMP 97.6; O2SAT 96
[2024-08-26 07:19] LABS: PLATELET COUNT (AUTO) 284 K/uL (179-408); RED BLOOD CELL COUNT(AUTO) 3.30 MIL/uL (3.63-4.92); RED CELL DISTRIBUTION WIDTH 12.8 % (12.3-17.7); WHITE BLOOD COUNT (AUTO) 6.9 K/uL (3.8-11.8)
[2024-08-26 07:33] LABS: CREATININE 0.2 mg/dL (0.6-1.3); SODIUM SERUM 135 mmol/L (136-145); UREA NITROGEN, BLOOD 14 mg/dL (7-18)
[2024-08-26 08:30] VITALS: BP 106/63; TEMP 97.5
[2024-08-26 20:00] VITALS: BP 119/73; TEMP 98.8
[2024-08-27 07:27] VITALS: BP 134/79; TEMP 98.3
[2024-08-27 20:10] VITALS: BP 114/75; TEMP 97.9
[2024-08-28 07:40] VITALS: BP 151/82; TEMP 98.4
[2024-08-28 19:53] VITALS: BP 127/71; TEMP 97.2
[2024-08-28] MEDS: LORAZEPAM 1 MG TABLET GT PRN (20:12)
[2024-08-29 06:57] LABS: PLATELET COUNT (AUTO) 304 K/uL (179-408); RED BLOOD CELL COUNT(AUTO) 3.31 MIL/uL (3.63-4.92); RED CELL DISTRIBUTION WIDTH 13.3 % (12.3-17.7); WHITE BLOOD COUNT (AUTO) 7.2 K/uL (3.8-11.8)
[2024-08-29 07:11] VITALS: BP 122/75; TEMP 98.7
[2024-08-29 07:11] LABS: ASPARTATE AMINOTRANSFERASE 17 U/L (15-37); CREATININE 0.3 mg/dL (0.6-1.3); SODIUM SERUM 134 mmol/L (136-145); TOTAL PROTEIN, SERUM 7.9 g/dL (6.4-8.2); UREA NITROGEN, BLOOD 19 mg/dL (7-18)
[2024-08-29 20:04] VITALS: BP 119/75; TEMP 98.4
[2024-08-30 07:38] VITALS: BP 123/73; TEMP 97.7
[2024-08-30] MEDS: HYDROMORPHONE HCL 4 MG TABLET GT PRN (13:11)
[2024-08-30 19:58] VITALS: BP 132/72; TEMP 98.3
[2024-08-31 09:04] VITALS: BP 98/76; TEMP 97.2
[2024-08-31 11:25] VITALS: O2SAT 99
[2024-08-31 20:01] VITALS: BP 116/73; TEMP 98.6
[2024-09-01 07:42] VITALS: BP 124/75; TEMP 98.8
[2024-09-01 20:00] VITALS: BP 111/68; TEMP 98.2
[2024-09-02 07:43] VITALS: BP 104/62; TEMP 98
[2024-09-02 20:08] VITALS: BP 108/60; TEMP 98.2
[2024-09-03 07:31] VITALS: BP 106/65; TEMP 98.3
[2024-09-03 20:24] VITALS: BP 113/60; TEMP 98.6
[2024-09-04 07:23] VITALS: BP 116/63; TEMP 98.2
[2024-09-04 20:21] VITALS: BP 117/68; TEMP 98.9
[2024-09-05 08:15] VITALS: BP 120/68; TEMP 98.6
[2024-09-05 20:00] VITALS: BP 100/62; TEMP 98.6
[2024-09-06 07:42] VITALS: BP 105/60; TEMP 98.6
[2024-09-06 20:00] VITALS: BP 110/64; TEMP 98.6
[2024-09-07 07:50] VITALS: BP 105/61; TEMP 97.6
[2024-09-07 20:00] VITALS: BP 109/66; TEMP 98.4
[2024-09-08 20:15] VITALS: BP 119/70; TEMP 97.8
[2024-09-09 08:09] VITALS: BP 109/65; TEMP 97.8
[2024-09-09 19:56] VITALS: BP 109/62; TEMP 98.2
[2024-09-10 07:29] VITALS: BP 98/60; TEMP 97.8
[2024-09-10 20:05] VITALS: BP 116/66; TEMP 98.2
[2024-09-11 07:22] VITALS: BP 95/58; TEMP 98.8
[2024-09-11 20:33] VITALS: BP 122/69; TEMP 98.4
[2024-09-12 07:26] VITALS: BP 95/60; TEMP 97.8
[2024-09-12 20:30] VITALS: BP 115/59; TEMP 97.4
[2024-09-13 07:55] VITALS: BP 108/64; TEMP 97.8
[2024-09-13 19:53] VITALS: BP 107/63; TEMP 98.2
[2024-09-14 14:14] VITALS: BP 105/65; TEMP 98.2
[2024-09-14 20:00] VITALS: BP 107/63; TEMP 98.7
[2024-09-15 07:58] VITALS: BP_SYST 101; BP_DIAS 53; BP_DIAS 56; TEMP 97.5; TEMP 97.6
[2024-09-15 20:00] VITALS: BP 107/66; TEMP 98.1
[2024-09-16 07:30] VITALS: BP 114/72; TEMP 97.7
[2024-09-16 20:00] VITALS: BP 116/68; TEMP 98
[2024-09-17 07:27] VITALS: BP 116/67; TEMP 97.8
[2024-09-17 21:12] VITALS: BP 114/67; TEMP 98.9
[2024-09-18 07:32] VITALS: BP 111/64; TEMP 97.6
[2024-09-18 20:00] VITALS: BP 109/59; TEMP 98
[2024-09-19 07:34] VITALS: BP 109/55; TEMP 98
[2024-09-19] MEDS: HYDROCODONE/APAP 5-325MG TABLET GT PRN (17:40)
[2024-09-19 19:51] VITALS: BP 120/68; TEMP 98.4
[2024-09-20 07:52] VITALS: BP 108/59; TEMP 97.4
[2024-09-20 20:10] VITALS: BP 104/61; TEMP 98.6
[2024-09-21 08:19] VITALS: BP 125/76; TEMP 98.5
[2024-09-21 20:26] VITALS: BP 103/60; TEMP 98.5
[2024-09-22 08:49] VITALS: BP 121/66; TEMP 98
[2024-09-22 20:00] VITALS: BP 123/70; TEMP 98.4
[2024-09-23 08:15] VITALS: BP 94/57; TEMP 98.7
[2024-09-23 10:14] VITALS: BP 115/68
[2024-09-23 20:00] VITALS: BP_SYST 63; TEMP 98.8
[2024-09-24 07:23] VITALS: BP 108/60; TEMP 98.9
[2024-09-24 20:00] VITALS: BP 112/65; TEMP 98.5
[2024-09-25 07:25] VITALS: BP 113/59; TEMP 98.4
[2024-09-25 20:00] VITALS: BP 118/72; TEMP 98.1
[2024-09-26 07:28] VITALS: BP 104/61; TEMP 97.8
[2024-09-26 11:26] VITALS: BP 114/68
[2024-09-26 20:00] VITALS: BP 124/63; TEMP 99.3
[2024-09-27 07:58] VITALS: BP 106/67; TEMP 98.4
[2024-09-27 20:00] VITALS: BP 112/68; TEMP 98.8
[2024-09-28 07:32] VITALS: BP 102/64; TEMP 98.1
[2024-09-28 20:00] VITALS: BP 103/64; TEMP 98.7
[2024-09-29 08:16] VITALS: BP 105/56; TEMP 98.5
[2024-09-29 20:00] VITALS: BP 114/73; TEMP 99
[2024-09-30 08:09] VITALS: BP 110/55; TEMP 97.8
[2024-09-30 13:50] VITALS: O2SAT 99
[2024-09-30 19:54] VITALS: BP 129/74; TEMP 97.6
[2024-10-01 07:24] VITALS: BP 112/69; TEMP 97.8
[2024-10-01 20:00] VITALS: BP 111/63; TEMP 99
[2024-10-02 07:36] VITALS: BP 116/69; TEMP 98.3
[2024-10-02 20:00] VITALS: BP 125/72; TEMP 98.6
[2024-10-03 07:43] VITALS: BP 108/58; TEMP 98.3
[2024-10-03 20:00] VITALS: BP 117/62; TEMP 98.6
[2024-10-04 07:29] VITALS: BP 109/61; TEMP 97.8
[2024-10-04 20:40] VITALS: BP 120/55; TEMP 97.5
[2024-10-05 07:42] VITALS: BP 93/58; TEMP 98.4
[2024-10-05 20:00] VITALS: BP 125/76; TEMP 98.5
[2024-10-06 08:01] VITALS: BP 106/72; TEMP 97.9
[2024-10-06 20:00] VITALS: BP 108/63; TEMP 98.7
[2024-10-07 07:51] VITALS: BP 113/79; TEMP 97.7
[2024-10-07 12:20] VITALS: BP 109/61
[2024-10-07] MEDS: HYDROMORPHONE HCL 4 MG TABLET GT ONE (15:55)
[2024-10-07 20:00] VITALS: BP 109/64; TEMP 98.5
[2024-10-07] MEDS: HYDROMORPHONE HCL 2 MG TABLET GT PRN (21:50)
[2024-10-08 07:30] VITALS: BP 113/69; TEMP 97.8
[2024-10-08 20:00] VITALS: BP 104/67; TEMP 98.3
[2024-10-09 07:37] VITALS: BP 107/64; TEMP 98.6
[2024-10-09 20:00] VITALS: BP 117/70; TEMP 98.4
[2024-10-10 05:49] LABS: PLATELET COUNT (AUTO) 205 K/uL (179-408); RED BLOOD CELL COUNT(AUTO) 3.50 MIL/uL (3.63-4.92); RED CELL DISTRIBUTION WIDTH 13.9 % (12.3-17.7); WHITE BLOOD COUNT (AUTO) 5.1 K/uL (3.8-11.8)
[2024-10-10 06:10] LABS: ASPARTATE AMINOTRANSFERASE 16 U/L (15-37); CREATININE 0.2 mg/dL (0.6-1.3); SODIUM SERUM 139 mmol/L (136-145); TOTAL PROTEIN, SERUM 7.2 g/dL (6.4-8.2); UREA NITROGEN, BLOOD 8 mg/dL (7-18)
[2024-10-10 07:31] VITALS: BP 100/58; TEMP 97.8
[2024-10-10 19:55] VITALS: BP 105/53; TEMP 98.6
[2024-10-11 10:26] VITALS: BP 107/61; TEMP 97.7
[2024-10-11 19:59] VITALS: BP 112/67; TEMP 97.7
[2024-10-12 08:00] VITALS: BP 104/54; TEMP 97.8
[2024-10-12 20:15] VITALS: BP 118/78; TEMP 97.5
[2024-10-13 07:56] VITALS: BP 121/64; TEMP 97.8
[2024-10-13 08:00] VITALS: BP 142/59; TEMP 98.2
[2024-10-13 19:58] VITALS: BP 109/66; TEMP 97.8
[2024-10-14 07:33] VITALS: BP 104/69; TEMP 98.6
[2024-10-14 07:40] VITALS: BP 107/68; TEMP 97.8
[2024-10-14 20:00] VITALS: BP 113/62; TEMP 98.7
[2024-10-15 07:36] VITALS: BP 113/63; TEMP 98.2
[2024-10-15] MEDS: HYDROMORPHONE HCL 4 MG TABLET GT PRN (09:27)
[2024-10-15 20:00] VITALS: BP 122/66; TEMP 98.4
[2024-10-16 07:34] VITALS: BP 109/63; TEMP 98.6
[2024-10-16 20:00] VITALS: BP 106/60; TEMP 98.7
[2024-10-17 07:54] VITALS: BP 95/57; TEMP 98
[2024-10-17 20:07] VITALS: BP 117/66; TEMP 99.1
[2024-10-18 07:48] VITALS: BP 106/62; TEMP 98.6
[2024-10-18 20:34] VITALS: BP 115/56; TEMP 97.6
[2024-10-19 07:52] VITALS: BP 105/61; TEMP 97.9
[2024-10-20 00:32] VITALS: BP 127/40; TEMP 96.3
[2024-10-20 07:47] VITALS: BP 100/55; TEMP 97.8
[2024-10-20 20:48] VITALS: BP 112/64; TEMP 98
[2024-10-21 07:43] VITALS: BP 100/55; TEMP 97.9
[2024-10-21 19:44] VITALS: BP 109/61; TEMP 98.5
[2024-10-22 07:29] VITALS: BP 108/61; TEMP 98.2
[2024-10-22 20:00] VITALS: BP 117/67; TEMP 98.6
[2024-10-23 07:26] VITALS: BP 90/59; TEMP 98.1
[2024-10-23 09:30] VITALS: BP 103/60
[2024-10-23 20:51] VITALS: BP 110/60; TEMP 98.3
[2024-10-24 07:31] VITALS: BP 99/58; TEMP 97.1
[2024-10-24 19:35] VITALS: BP 108/61; TEMP 98.2
[2024-10-25 07:57] VITALS: BP 100/52; TEMP 98.4
[2024-10-25] MEDS: NEOMY/BACITRA/POLYMYXIN B OINT UD PACKET TP SCH (09:37)
[2024-10-25 20:08] VITALS: BP 127/78; TEMP 98.5
[2024-10-26 07:50] VITALS: BP 104/56; TEMP 97.8
[2024-10-26 20:00] VITALS: BP 116/67; TEMP 98.4
[2024-10-27 08:04] VITALS: BP 110/59; TEMP 98.6
[2024-10-27 20:00] VITALS: BP 108/57; TEMP 98.6
[2024-10-28 08:12] VITALS: BP 110/62; TEMP 97.8
[2024-10-28 20:09] VITALS: BP 109/63; TEMP 98
[2024-10-29 07:45] VITALS: BP 105/52; TEMP 97
[2024-10-29 20:01] VITALS: BP 119/73; TEMP 98
[2024-10-30 07:41] VITALS: BP 101/62; TEMP 98.4
[2024-10-30 20:00] VITALS: BP 130/76; TEMP 98.4
[2024-10-31 04:13] VITALS: BP 117/71
[2024-10-31 07:34] VITALS: BP 117/69; TEMP 97.7
[2024-10-31 11:09] VITALS: O2SAT 99
[2024-10-31 20:38] VITALS: BP 115/54; TEMP 97.8
[2024-11-01 05:00] VITALS: BP 121/71
[2024-11-01 07:56] VITALS: BP 108/60; TEMP 97.3
[2024-11-01] MEDS: LORAZEPAM 1 MG TABLET PO ONE (12:50)
[2024-11-01 19:56] VITALS: BP 119/72; TEMP 98.4
[2024-11-02 07:51] VITALS: BP 101/63; TEMP 97.8
[2024-11-02] MEDS: LORAZEPAM 1 MG TABLET GT PRN (11:33)
[2024-11-02 19:57] VITALS: BP 119/70; TEMP 98
[2024-11-03 07:41] VITALS: BP 106/56; TEMP 98.5
[2024-11-03 20:00] VITALS: BP 113/66; TEMP 98.8
[2024-11-04 08:01] VITALS: BP 89/60; TEMP 98.2
[2024-11-04 20:00] VITALS: BP 114/64; TEMP 98.3
[2024-11-05 07:24] VITALS: BP 130/77; TEMP 97.9
[2024-11-05 20:00] VITALS: BP 117/73; TEMP 98.9
[2024-11-06 07:32] VITALS: BP 111/64; TEMP 98
[2024-11-06 20:00] VITALS: BP 108/66; TEMP 98.2
[2024-11-07 07:22] VITALS: BP 110/64; TEMP 98
[2024-11-07] MEDS: SILVER NITRATE APPLICATOR STICK EACH TP PRN (11:15)
[2024-11-07 19:49] VITALS: BP 105/64; TEMP 97.8
[2024-11-08] MEDS: NEOMY/BACITRA/POLYMYXIN B OINT UD PACKET TP SCH (09:38)
[2024-11-08 12:27] VITALS: BP 102/55
[2024-11-08 20:02] VITALS: BP 115/67; TEMP 98.5
[2024-11-09 07:57] VITALS: BP 109/68; TEMP 97.7
[2024-11-09 23:52] VITALS: BP 103/52; TEMP 98.5; O2SAT 98
[2024-11-10 07:49] VITALS: BP 104/63; TEMP 98
[2024-11-10 20:00] VITALS: BP 111/59; TEMP 98.3
[2024-11-11 07:47] VITALS: BP 103/59; TEMP 97.1
[2024-11-11 10:47] VITALS: BP 112/70
[2024-11-11 20:00] VITALS: BP 109/65; TEMP 98.5
[2024-11-12 07:59] VITALS: BP 94/46; TEMP 97.5
[2024-11-12 20:00] VITALS: BP 109/61; TEMP 99
[2024-11-13 08:05] VITALS: BP 104/56; TEMP 98.6
[2024-11-13 20:00] VITALS: BP 103/56; TEMP 98.6
[2024-11-14 07:38] VITALS: BP 103/63; TEMP 97.7
[2024-11-14 20:14] VITALS: BP 106/63; TEMP 98.5
[2024-11-15 07:34] VITALS: BP 99/85; TEMP 97.5
[2024-11-15] MEDS: NEOMY/BACITRA/POLYMYXIN B OINT UD PACKET TP SCH (09:18)
[2024-11-15 19:51] VITALS: BP 119/63; TEMP 98.1
[2024-11-16 07:53] VITALS: BP 103/55; TEMP 97.4
[2024-11-16 20:12] VITALS: BP 100/58; TEMP 99.4
[2024-11-16 20:14] VITALS: BP 117/64; TEMP 99.4
[2024-11-16] MEDS: ONDANSETRON HCL 4 MG TABLET GT PRN (21:44)
[2024-11-17 08:20] VITALS: BP 105/64; TEMP 97.7
[2024-11-17 20:10] VITALS: BP 115/64; TEMP 98.6
[2024-11-18 08:00] VITALS: BP 115/69; TEMP 97.9
[2024-11-18 19:44] VITALS: BP 121/67; TEMP 98.2
[2024-11-19 13:00] VITALS: BP 120/60; TEMP 97.7
[2024-11-19 20:33] VITALS: BP 119/71; TEMP 97.7
[2024-11-20 20:00] VITALS: BP 123/66; TEMP 98.5
[2024-11-21 07:40] VITALS: BP 101/61; TEMP 98.3
[2024-11-21 20:00] VITALS: BP 104/61; TEMP 97.7
[2024-11-21 21:40] VITALS: BP 115/66
[2024-11-22 08:10] VITALS: BP 105/63; TEMP 97.7
[2024-11-22 20:52] VITALS: BP 110/61; TEMP 98.6
[2024-11-23 08:28] VITALS: BP 98/55; TEMP 98.3
[2024-11-23 20:18] VITALS: BP 117/68; TEMP 99
[2024-11-24 08:17] VITALS: BP 110/66; TEMP 97
[2024-11-24 20:32] VITALS: BP 122/70; TEMP 98.6
[2024-11-25 07:43] VITALS: BP 110/66; TEMP 98.3
[2024-11-25 20:07] VITALS: BP 111/66; TEMP 98.3
[2024-11-26 07:39] VITALS: BP 105/56; TEMP 97.7
[2024-11-26 20:39] VITALS: BP 113/64; TEMP 96.4
[2024-11-27 20:00] VITALS: BP 119/67; TEMP 99
[2024-11-27] MEDS: LORAZEPAM 1 MG TABLET GT PRN (20:51)
[2024-11-28 07:56] VITALS: BP 92/56; TEMP 98.3
[2024-11-28] MEDS: NEOMY/BACITRA/POLYMYXIN B OINT UD PACKET TP SCH (09:20)
[2024-11-28 19:42] VITALS: BP 117/67; TEMP 98.7
[2024-11-29 07:52] VITALS: BP 112/57; TEMP 98.7
[2024-11-29 19:39] VITALS: BP 118/67; TEMP 98
[2024-11-29] MEDS: LORAZEPAM 1 MG TABLET GT PRN (20:55)
[2024-11-30 08:00] VITALS: BP 99/59; TEMP 97.6
[2024-11-30] MEDS: LACTULOSE 20 G/30 ML LIQUID UDC GT SCH (09:13)
[2024-11-30 19:48] VITALS: BP 118/68; TEMP 98.6
[2024-12-01 12:55] VITALS: BP 104/59; TEMP 97.7
[2024-12-01 14:50] VITALS: O2SAT 99
[2024-12-01 20:00] VITALS: BP 121/72; TEMP 99
[2024-12-02 07:51] VITALS: BP 103/62; TEMP 98.2
[2024-12-02 20:00] VITALS: BP 112/64; TEMP 98.3
[2024-12-03 07:43] VITALS: BP 97/57; TEMP 97.8
[2024-12-03 20:00] VITALS: BP 73/69; TEMP 98.1
[2024-12-03] MEDS: NEOMY/BACITRA/POLYMYXIN B OINT UD PACKET TP SCH (20:01)
[2024-12-04 07:48] VITALS: BP 95/50; TEMP 98.2
[2024-12-04 20:43] VITALS: BP 107/59; TEMP 98
[2024-12-05 07:28] VITALS: BP 106/59; TEMP 98.8
[2024-12-05 20:23] VITALS: BP 113/64; TEMP 98.6
[2024-12-06 07:57] VITALS: BP 101/65; TEMP 98.1
[2024-12-06 20:00] VITALS: BP 128/70; TEMP 98.6
[2024-12-07 08:10] VITALS: BP 97/56; TEMP 98.6; O2SAT 100
[2024-12-07 20:00] VITALS: BP 120/68; TEMP 98.4
[2024-12-08 23:59] VITALS: BP 107/67; TEMP 98.4; O2SAT 99
[2024-12-09 07:28] VITALS: BP 101/54; TEMP 97.9
[2024-12-09 20:17] VITALS: BP 107/62; TEMP 98.7
[2024-12-09] MEDS: LORAZEPAM 1 MG TABLET ONE (21:30)
[2024-12-10 07:25] VITALS: BP 108/62; TEMP 98.7
[2024-12-10 20:13] VITALS: BP 115/63; TEMP 98.6
[2024-12-11 07:35] VITALS: BP 101/52; TEMP 98.6
[2024-12-11 20:00] VITALS: BP 111/65; TEMP 98.8
[2024-12-12 07:44] VITALS: BP 102/61; TEMP 98
[2024-12-12] MEDS: SILVER NITRATE APPLICATOR STICK EACH TP ONE (13:58)
[2024-12-12 19:47] VITALS: BP 118/70; TEMP 97.9
[2024-12-13 08:00] VITALS: BP 120/64; TEMP 97.8
[2024-12-13] MEDS: POVIDONE-IODINE WASH 236 ML BOTTLE TP SCH (09:16)
[2024-12-13 20:12] VITALS: BP 128/68; TEMP 98.3
[2024-12-14 07:53] VITALS: BP 106/60; TEMP 97.6
[2024-12-14 20:03] VITALS: BP_SYST 100; BP_SYST 122; BP_DIAS 64; BP_DIAS 68; TEMP 97.6; TEMP 98
[2024-12-14 20:08] VITALS: BP 122/68; TEMP 98
[2024-12-15 07:54] VITALS: BP 124/68; TEMP 98
[2024-12-15 20:00] VITALS: BP 106/62; TEMP 98.6
[2024-12-16 08:30] VITALS: BP 117/68; TEMP 97.9
[2024-12-16 21:34] VITALS: BP 122/70; TEMP 98.7
[2024-12-17 07:30] VITALS: BP 112/64; TEMP 98.2
[2024-12-17 20:22] VITALS: BP 133/77; TEMP 98.7
[2024-12-18 07:31] VITALS: BP 112/61; TEMP 98.3
[2024-12-18 19:55] VITALS: BP 120/62; TEMP 98.2
[2024-12-19 07:35] VITALS: BP 108/54; TEMP 98.6
[2024-12-19 19:39] VITALS: BP 131/75; TEMP 98.1
[2024-12-20 07:44] VITALS: BP 100/54; TEMP 98.1
[2024-12-20 20:18] VITALS: BP 114/66; TEMP 98.4
[2024-12-21 08:02] VITALS: BP 97/52; TEMP 97.6
[2024-12-21] MEDS: FLU VACC 2025-26(6MOS UP)/PF 0.5 ML SYRINGE IM ONE (11:51)
[2024-12-21 20:00] VITALS: BP 111/61; TEMP 98
[2024-12-21] MEDS: HYDROMORPHONE HCL 4 MG TABLET GT PRN (20:10)
[2024-12-22 08:06] VITALS: BP 97/55; TEMP 97.7
[2024-12-22 20:00] VITALS: BP 128/71; TEMP 98.8
[2024-12-23 08:06] VITALS: BP 106/64; TEMP 97.2
[2024-12-23] MEDS: OLOPATADINE 0.1% OPHT DROP 5 ML BOTTLE EACHEYE SCH (20:10)
[2024-12-23 20:35] VITALS: BP 110/68; TEMP 98.9
[2024-12-24 07:24] VITALS: BP 107/60; TEMP 98.5
[2024-12-24 20:02] VITALS: BP 132/73; TEMP 98.1
[2024-12-25 20:03] VITALS: BP 114/63; TEMP 98.7
[2024-12-26 08:00] VITALS: BP 98/61; TEMP 98.5
[2024-12-26 20:24] VITALS: BP 123/73; TEMP 98.6; O2SAT 99
[2024-12-27 07:35] VITALS: BP 106/60; TEMP 98.7
[2024-12-27 09:00] VITALS: BP 125/76
[2024-12-27 10:00] VITALS: BP 125/76
[2024-12-27 20:00] VITALS: BP 105/60; TEMP 98
[2024-12-28 07:53] VITALS: BP 116/71; TEMP 97.7
[2024-12-28 20:12] VITALS: BP 121/75; TEMP 98.3
[2024-12-29 08:24] VITALS: BP 122/59; TEMP 98.3
[2024-12-29 20:53] VITALS: BP 118/55; TEMP 100.7
[2024-12-30 08:00] VITALS: BP 126/70; TEMP 99.2
[2024-12-30 20:14] VITALS: BP 106/61; TEMP 98.7
[2024-12-30] MEDS: ACETAMINOPHEN 650 MG/20 ML UDC- SA PATIENTS-FEVER ONLY GT PRN (20:18)
[2024-12-31 07:54] VITALS: BP 127/70; TEMP 98.6
[2024-12-31 09:50] VITALS: O2SAT 99
[2024-12-31 20:07] VITALS: BP 108/67; TEMP 99.6
[2024-12-31 21:10] VITALS: TEMP 98.8
[2025-01-01 04:20] VITALS: TEMP 98.8
[2025-01-01 07:46] VITALS: BP 124/67; TEMP 97.2
[2025-01-01 20:20] VITALS: BP 122/62; TEMP 99
[2025-01-02 07:36] VITALS: BP 113/62; TEMP 98.4
[2025-01-02 09:44] LABS: PLATELET COUNT (AUTO) 335 K/uL (179-408); RED BLOOD CELL COUNT(AUTO) 2.99 MIL/uL (3.63-4.92); RED CELL DISTRIBUTION WIDTH 14.2 % (12.3-17.7); WHITE BLOOD COUNT (AUTO) 14.9 K/uL (3.8-11.8)
[2025-01-02 09:49] LABS: CREATININE 0.2 mg/dL (0.6-1.3); SODIUM SERUM 135 mmol/L (136-145); UREA NITROGEN, BLOOD 12 mg/dL (7-18)
[2025-01-02 10:39] LABS: *BILIRUBIN,URIN NEGATIVE (NEGATIVE); *BLOOD, URINE 3+ (NEGATIVE); *CLARITY,URINE CLOUDY (CLEAR); *COLOR,URINE YELLOW (YELLOW); *KETONES,URINE NEGATIVE (NEGATIVE); *PROTEIN,URINE 2+ (NEGATIVE); *UROBILINOGEN,URINE 2.0 E.U./dl (NORMAL); LEUKOCYTE ESTERASE ,URINE 3+ (NEGATIVE); NITRITE, URINE NEGATIVE (NEGATIVE); UGLUCOSE NEGATIVE (NEGATIVE)
[2025-01-02 11:27] LABS: SQUAMOUS EPITHELIAL CELL,UR FEW /HPF (NONE SEEN)
[2025-01-02] MEDS ORDERED: HYDROMORPHONE 2 MG/1 ML DISP.SYRIN IV PRN (14:15)
[2025-01-02] MEDS ORDERED: HYDROMORPHONE HCL 2 MG TABLET GT PRN (15:15)
[2025-01-02] MEDS: MEROPENEM 500 MG in IV NORMAL SALINE 50 ML IV SCH (17:44)
[2025-01-03] MEDS ORDERED: GLYC2TAB2 GT (10:13)
[2025-01-03] MEDS ORDERED: ROSU10TA2 GT (10:13)
[2025-01-03] MEDS ORDERED: HYDR2TAB4 GT (10:13)
[2025-01-03] MEDS ORDERED: LACT10SO58 GT (10:13)
[2025-01-03] MEDS ORDERED: RIVA10TA GT (10:13)
[2025-01-03] MEDS ORDERED: DICL100G31 TP (10:13)
[2025-01-03] MEDS ORDERED: MERO500P IV (10:13)
[2025-01-03] MEDS ORDERED: RISP0.2515 PO (10:13)
[2025-01-03] MEDS ORDERED: POTA20PA40 GT (10:13)
[2025-01-03] MEDS ORDERED: LACT-209 GT (10:13)
[2025-01-03] MEDS ORDERED: MINE3.5O5 EACHEYE (10:14)
[2025-01-07 05:14] LABS: PLATELET COUNT (AUTO) 437 K/uL (179-408); RED BLOOD CELL COUNT(AUTO) 3.59 MIL/uL (3.63-4.92); RED CELL DISTRIBUTION WIDTH 14.4 % (12.3-17.7); WHITE BLOOD COUNT (AUTO) 21.9 K/uL (3.8-11.8)
[2025-01-07 05:29] LABS: CREATININE 0.8 mg/dL (0.6-1.3); SODIUM SERUM 138.0 mmol/L (136-145); UREA NITROGEN, BLOOD 27.0 mg/dL (7-18)
== END 2025-01-03 18:00 | disposition short-term general hospital (02) | DRG 951 ==
LOC: SA → UNDOLOA 01-03 → UNDODISIN 01-09 19:34
PROVIDERS: ADMIT Internal Medicine; ATTEND Internal Medicine
PROC: 5A1955Z Respiratory Ventilation, Greater than 96 Consecutive Hours (ICD-10-PCS; principal; 2024-03-14)
PROC: 0CCXXZ2 Extirpation of Matter from Lower Tooth, All, External Approach (ICD-10-PCS; 2024-05-16)
PROC: 0CCWXZ2 Extirpation of Matter from Upper Tooth, All, External Approach (ICD-10-PCS; 2024-05-16)
PROC: 0HBRXZZ Excision of Toe Nail, External Approach (ICD-10-PCS; 2024-06-01)
PROC: 0HDRXZZ Extraction of Toe Nail, External Approach (ICD-10-PCS; 2024-06-01)
PROC: 0JDQ0ZZ Extraction of Right Foot Subcutaneous Tissue and Fascia, Open Approach (ICD-10-PCS; 2024-08-01)
PROC: 0HBRXZZ Excision of Toe Nail, External Approach (ICD-10-PCS; 2024-10-29)
DX: J96.12 Chronic respiratory failure with hypercapnia (principal); G12.21 Amyotrophic lateral sclerosis; E44.0 Moderate protein-calorie malnutrition; R53.2 Functional quadriplegia; D68.59 Other primary thrombophilia; K56.7 Ileus, unspecified; E88.09 Other disorders of plasma-protein metabolism, not elsewhere classified; R62.7 Adult failure to thrive; Z99.11 Dependence on respirator [ventilator] status; J96.11 Chronic respiratory failure with hypoxia; E78.5 Hyperlipidemia, unspecified; G89.29 Other chronic pain; K59.00 Constipation, unspecified; Z93.1 Gastrostomy status; R13.10 Dysphagia, unspecified; Z86.718 Personal history of other venous thrombosis and embolism; L60.0 Ingrowing nail; L92.9 Granulomatous disorder of the skin and subcutaneous tissue, unspecified; L60.2 Onychogryphosis; L60.3 Nail dystrophy; R41.82 Altered mental status, unspecified; L03.031 Cellulitis of right toe; Z82.49 Family history of ischemic heart disease and other diseases of the circulatory system; Z83.3 Family history of diabetes mellitus; Z66 Do not resuscitate; G47.8 Other sleep disorders; F32.A Depression, unspecified; F41.9 Anxiety disorder, unspecified; Z87.440 Personal history of urinary (tract) infections; N89.8 Other specified noninflammatory disorders of vagina; B35.1 Tinea unguium; Z90.49 Acquired absence of other specified parts of digestive tract; N21.0 Calculus in bladder; R19.09 Other intra-abdominal and pelvic swelling, mass and lump; Z93.0 Tracheostomy status; H00.014 Hordeolum externum left upper eyelid; Z79.899 Other long term (current) drug therapy; M54.50 Low back pain, unspecified; H53.19 Other subjective visual disturbances; E87.70 Fluid overload, unspecified
CPT/HCPCS: 36415; 71045; 74018; 83605; 83735; 84100; 85025; 86580; 87077; 87086; 94003; 94640; 94760; 99082-TC; A4663; A6209; A6213; C1758; J3590; J8499

== ENCOUNTER 2025-01-02 20:09 | Inpatient (IN) | payer OTHER ==
[~2025-01-02] VITALS: Ht 167.6 cm; Wt 67.2 kg
[2025-01-02] MEDS ORDERED: NOREPINEPHRINE 8MG/NS 250ML 250 ML IV ONE (20:51)
[2025-01-02] MEDS ORDERED: LIDOCAINE 2%-EPI 1:100,000 20 ML VIAL ONE (20:52)
[2025-01-02] MEDS: LIDOCAINE 2%-EPI 1:100,000 20 ML VIAL IJ ONE (21:00)
[2025-01-02 21:53] LABS: PLATELET COUNT (AUTO) 363 K/uL (179-408); RED BLOOD CELL COUNT(AUTO) 3.21 MIL/uL (3.63-4.92); RED CELL DISTRIBUTION WIDTH 14.4 % (12.3-17.7); WHITE BLOOD COUNT (AUTO) 24.2 K/uL (3.8-11.8)
[2025-01-02 21:55] LABS: CREATININE 0.4 mg/dL (0.6-1.3); SODIUM SERUM 136 mmol/L (136-145); UREA NITROGEN, BLOOD 20 mg/dL (7-18)
[2025-01-02 22:01] LABS: ASPARTATE AMINOTRANSFERASE 18 U/L (15-37); TOTAL PROTEIN, SERUM 7.5 g/dL (6.4-8.2)
[2025-01-02] MEDS: NOREPINEPHRINE 8MG/NS 250ML 250 ML IV ONE (22:37)
[2025-01-02 22:54] LABS: NEUTROPHILS % (MANUAL) 83 % (42-75)
[2025-01-02 22:55] LABS: BAND % (MANUAL) 1 % (0-10); LYMPHOCYTES % (MANUAL) 8 % (20-40); MONOCYTES % (MANUAL) 8 % (2-10); PLATELET ESTIMATE ADEQUATE
[2025-01-03] VITALS (39 sets, daily range): BP systolic 100–154; BP diastolic 64–91; TEMP 99.8–101.4; O2SAT 94–100
[2025-01-03] MEDS ORDERED: AZITHROMYCIN 500 MG VIAL IV ONE (01:01)
[2025-01-03] MEDS: AZITHROMYCIN IV 500 MG in IV DEXTROSE 5% 250 ML IV ONE (01:18)
[2025-01-03] MEDS: ACETAMINOPHEN 650 MG SUPP.RECT RC ONE (02:15)
[2025-01-03] MEDS ORDERED: NOREPINEPHRINE 8MG/NS 250ML 250 ML IV ONE ×2 (03:19→09:26)
[2025-01-03] MEDS ORDERED: REMEDY ESSENTIAL ZINC PASTE 113 GM TP PRN (03:30)
[2025-01-03] MEDS ORDERED: BISACODYL 10 MG SUPP.RECT RC PRN (03:30)
[2025-01-03] MEDS: MEROPENEM 1,000 MG in IV NORMAL SALINE 100 ML IV ONE (03:39)
[2025-01-03] MEDS: NOREPINEPHRINE 8MG/NS 250ML 250 ML IV PRN ×2 (03:39→10:07)
[2025-01-03] MEDS ORDERED: MEROPENEM 1GM/NS 100ML IVPB **ER PYXIS ONLY IV ONE ×2 (03:40→09:27)
[2025-01-03] MEDS: IV NS 1000 ML 1,000 ML IV PRN (03:43)
[2025-01-03] MEDS: VANCOMYCIN IV 1,000 MG in IV DEXTROSE 5% 250 ML IV ONE (05:00)
[2025-01-03 05:33] LABS: PLATELET COUNT (AUTO) 320 K/uL (179-408); RED BLOOD CELL COUNT(AUTO) 3.10 MIL/uL (3.63-4.92); RED CELL DISTRIBUTION WIDTH 14.2 % (12.3-17.7); WHITE BLOOD COUNT (AUTO) 27.1 K/uL (3.8-11.8)
[2025-01-03] MEDS ORDERED: VANCOMYCIN IV 200 ML ONE (05:59)
[2025-01-03] MEDS ORDERED: MEROPENEM 500MG/NS 50ML PB ***ER PYXIS ONLY IV ONE (05:59)
[2025-01-03] MEDS ORDERED: ACETAMINOPHEN 650 MG SUPP.RECT RC ONE (05:59)
[2025-01-03] MEDS ORDERED: CEFEPIME (MAXEPIME) 1 G in IV DEXTROSE 5% 50 ML IV SCH (06:00)
[2025-01-03] MEDS: MEROPENEM 500 MG in IV NORMAL SALINE 50 ML IV SCH ×2 (06:02→13:46)
[2025-01-03 06:13] LABS: BAND % (MANUAL) 1 % (0-10); LYMPHOCYTES % (MANUAL) 4 % (20-40); MONOCYTES % (MANUAL) 9 % (2-10); NEUTROPHILS % (MANUAL) 86 % (42-75); PLATELET ESTIMATE ADEQUATE
[2025-01-03] MEDS: PANTOPRAZOLE ORAL SUSPENSION 40 MG SUSPDR.PKT GT SCH (07:21)
[2025-01-03] MEDS: IPRATROPIUM BROMIDE 0.5 MG/2.5 ML NEBU NEB SCH (07:35)
[2025-01-03] MEDS ORDERED: BACLOFEN 20 MG TABLET GT SCH (09:00)
[2025-01-03] MEDS ORDERED: FLUOXETINE HCL 20 MG CAPSULE GT SCH (09:00)
[2025-01-03] MEDS ORDERED: LIDOCAINE 5% PATCH TD SCH (09:00)
[2025-01-03] MEDS ORDERED: OLOPATADINE 0.1% OPHT DROP 5 ML BOTTLE EACHEYE SCH (09:00)
[2025-01-03] MEDS ORDERED: GABAPENTIN 400 MG CAPSULE ONE (09:27)
[2025-01-03] MEDS ORDERED: PANTOPRAZOLE SODIUM 40 MG TABLET.DR PO ONE (09:27)
[2025-01-03] MEDS ORDERED: ENOXAPARIN SODIUM 40 MG/0.4 ML DISP.SYRIN SQ ONE (09:29)
[2025-01-03] MEDS: GABAPENTIN 400 MG CAPSULE GT SCH ×2 (09:37→21:15)
[2025-01-03] MEDS: ENOXAPARIN SODIUM 40 MG/0.4 ML DISP.SYRIN SQ SCH (09:41)
[2025-01-03] MEDS: CHLORHEXIDINE GLUCONATE 15 ML MOUTHWASH MM SCH (09:55)
[2025-01-03] MEDS ORDERED: POTA20PA40 GT (10:13)
[2025-01-03] MEDS ORDERED: GLYC2TAB2 GT (10:13)
[2025-01-03] MEDS ORDERED: MERO500P IV (10:13)
[2025-01-03] MEDS ORDERED: RISP0.2515 PO (10:13)
[2025-01-03] MEDS ORDERED: LACT-209 GT (10:13)
[2025-01-03] MEDS ORDERED: DICL100G31 TP (10:13)
[2025-01-03] MEDS ORDERED: ROSU10TA2 GT (10:13)
[2025-01-03] MEDS ORDERED: LACT10SO58 GT (10:13)
[2025-01-03] MEDS ORDERED: RIVA10TA GT (10:13)
[2025-01-03] MEDS ORDERED: HYDR2TAB4 GT (10:13)
[2025-01-03] MEDS ORDERED: MINE3.5O5 EACHEYE (10:14)
[2025-01-03 10:33] LABS: ABG BASE EXCESS -4.1 mmol/L (-2.0-3.0); ABG HCO3 28.1 mmol/L (21.0-28.0); ABG PCO2 104.3 mmHg (32.0-45.0); ABG PH 7.048 (7.350-7.450); ABG PO2 98.4 mmHg (83.0-108.0); ABG TOTAL HEMOGLOBIN 10.6 G/dL (12.0-16.0); AaDO2 93.5 mmHg; FIO2 40.0 %; PEEP,BG 5.0 cmH20; SET RATE, BG 15.0; VT, ABG 450 mL
[2025-01-03] MEDS: ACETAMINOPHEN 325 MG TABLET GT PRN (15:27)
[2025-01-03 16:53] LABS: ABG BASE EXCESS -1.3 mmol/L (-2.0-3.0); ABG HCO3 25.5 mmol/L (21.0-28.0); ABG PCO2 53.6 mmHg (32.0-45.0); ABG PH 7.296 (7.350-7.450); ABG PO2 71.8 mmHg (83.0-108.0); ABG SITE LEFT RADIAL; ABG TOTAL HEMOGLOBIN 10.1 G/dL (12.0-16.0); AaDO2 92.6 mmHg; FIO2 50.0 %; PEEP,BG 0.0 cmH20; SET RATE, BG 15.0; VT, ABG 450 mL
[2025-01-03] MEDS: VANCOMYCIN IV 1,000 MG in IV DEXTROSE 5% 250 ML IV SCH (17:12)
[2025-01-03] MEDS ORDERED: RILUZOLE 50 MG GT SCH (18:00)
[2025-01-03] MEDS: RILUZOLE 50 MG GT SCH (19:36)
[2025-01-03] MEDS: [UNRECOGNIZED DRUG - OTHER] GT SCH (19:36)
[2025-01-03] MEDS ORDERED: ATORVASTATIN 20 MG TABLET GT SCH (21:00)
[2025-01-03] MEDS ORDERED: DOCUSATE SODIUM 100 MG CAPSULE PO SCH (21:00)
[2025-01-03] MEDS: DOCUSATE SODIUM 100 MG/10 ML LIQUID UDC GT SCH (21:15)
[2025-01-03] MEDS: [UNRECOGNIZED DRUG - OTHER] GT SCH (21:16)
[2025-01-03] MEDS: ROSUVASTATIN 10 MG GT SCH (21:16)
[2025-01-04] VITALS (49 sets, daily range): BP systolic 94–138; BP diastolic 67–90; TEMP 97.7–99.1; O2SAT 93–100
[2025-01-04 06:31] LABS: PLATELET COUNT (AUTO) 244 K/uL (179-408); RED BLOOD CELL COUNT(AUTO) 2.77 MIL/uL (3.63-4.92); RED CELL DISTRIBUTION WIDTH 13.8 % (12.3-17.7); WHITE BLOOD COUNT (AUTO) 13.8 K/uL (3.8-11.8)
[2025-01-04 06:44] LABS: ASPARTATE AMINOTRANSFERASE 32.0 U/L (15-37); CREATININE 0.5 mg/dL (0.6-1.3); SODIUM SERUM 142.0 mmol/L (136-145); TOTAL PROTEIN, SERUM 6.6 g/dL (6.4-8.2); UREA NITROGEN, BLOOD 24.0 mg/dL (7-18)
[2025-01-04] MEDS: POTASSIUM CHLORIDE 50 ML IV SCH (08:55)
[2025-01-04] MEDS: POTASSIUM CHLORIDE 20 MEQ POWDER PACKET GT SCH (08:55)
[2025-01-04] MEDS: FLUOXETINE HCL 20 MG CAPSULE GT SCH (09:05)
[2025-01-04 09:31] LABS: ABG BASE EXCESS -1.4 mmol/L (-2.0-3.0); ABG HCO3 23.2 mmol/L (21.0-28.0); ABG PCO2 38.4 mmHg (32.0-45.0); ABG PH 7.399 (7.350-7.450); ABG PO2 79.7 mmHg (83.0-108.0); ABG TOTAL HEMOGLOBIN 8.5 G/dL (12.0-16.0); AaDO2 95.8 mmHg; FIO2 40.0 %; PEEP,BG 5.0 cmH20; SET RATE, BG 18.0; VT, ABG 450 mL
[2025-01-04] MEDS ORDERED: NEUTRA PHOS PACKET PO ONE (11:00)
[2025-01-04] MEDS: NEUTRA PHOS PACKET GT ONE (12:20)
[2025-01-04] MEDS: HYDROMORPHONE HCL 2 MG TABLET GT PRN (20:58)
[2025-01-05] VITALS (23 sets, daily range): BP systolic 114–144; BP diastolic 70–90; TEMP 97.4–99; O2SAT 91–98
[2025-01-05 04:49] LABS: PLATELET COUNT (AUTO) 274 K/uL (179-408); RED BLOOD CELL COUNT(AUTO) 2.60 MIL/uL (3.63-4.92); RED CELL DISTRIBUTION WIDTH 14.1 % (12.3-17.7); WHITE BLOOD COUNT (AUTO) 17.1 K/uL (3.8-11.8)
[2025-01-05 05:09] LABS: CREATININE 0.6 mg/dL (0.6-1.3); SODIUM SERUM 144.0 mmol/L (136-145); UREA NITROGEN, BLOOD 28.0 mg/dL (7-18)
[2025-01-05 06:29] LABS: ABG BASE EXCESS -3.2 mmol/L (-2.0-3.0); ABG HCO3 22.0 mmol/L (21.0-28.0); ABG PCO2 39.9 mmHg (32.0-45.0); ABG PH 7.359 (7.350-7.450); ABG PO2 66.7 mmHg (83.0-108.0); ABG SITE LEFT RADIAL; ABG TOTAL HEMOGLOBIN 8.7 G/dL (12.0-16.0); AaDO2 92.6 mmHg; PEEP,BG 5.0 cmH20; SET RATE, BG 19.0; VT, ABG 450 mL
[2025-01-05] MEDS: FUROSEMIDE 20 MG/2 ML VIAL IV SCH (11:07)
[2025-01-06] VITALS (17 sets, daily range): BP systolic 102–135; BP diastolic 69–86; TEMP 97.5–99; O2SAT 95–98
[2025-01-06 05:07] LABS: PLATELET COUNT (AUTO) 375 K/uL (179-408); RED BLOOD CELL COUNT(AUTO) 3.21 MIL/uL (3.63-4.92); RED CELL DISTRIBUTION WIDTH 14.3 % (12.3-17.7); WHITE BLOOD COUNT (AUTO) 22.4 K/uL (3.8-11.8)
[2025-01-06 05:21] LABS: CREATININE 0.6 mg/dL (0.6-1.3); SODIUM SERUM 138.0 mmol/L (136-145); UREA NITROGEN, BLOOD 27.0 mg/dL (7-18)
[2025-01-06] MEDS: HYDROMORPHONE HCL 2 MG TABLET GT PRN (05:37)
[2025-01-06] MEDS: POTASSIUM CHLORIDE 20 MEQ POWDER PACKET GT ONE (09:20)
[2025-01-06] MEDS: POTASSIUM CHLORIDE 50 ML IV SCH (09:29)
[2025-01-06] MEDS: VANCOMYCIN HCL 750 MG in IV DEXTROSE 5% 250 ML IV ONE (13:42)
[2025-01-07] VITALS (9 sets, daily range): BP systolic 106–131; BP diastolic 72–83; TEMP 98.4–98.5; O2SAT 93–97
[2025-01-07] MEDS ORDERED: JEVITY 1.2 1000 ML LIQUID GT PRN (03:30)
[2025-01-07 08:00] LABS: PLATELET COUNT (AUTO) 433 K/uL (179-408); RED BLOOD CELL COUNT(AUTO) 3.41 MIL/uL (3.63-4.92); RED CELL DISTRIBUTION WIDTH 14.4 % (12.3-17.7); WHITE BLOOD COUNT (AUTO) 21.3 K/uL (3.8-11.8)
[2025-01-07] MEDS: JEVITY 1.2 1000 ML LIQUID GT PRN (09:07)
[2025-01-07] MEDS: NEUTRA PHOS PACKET PO ONE (15:03)
[2025-01-08 00:38] VITALS: BP 128/87; TEMP 98.4; O2SAT 98
[2025-01-08 05:08] VITALS: BP 109/59; TEMP 98.7; O2SAT 96
[2025-01-08 06:55] LABS: PLATELET COUNT (AUTO) 437 K/uL (179-408); RED BLOOD CELL COUNT(AUTO) 3.16 MIL/uL (3.63-4.92); RED CELL DISTRIBUTION WIDTH 14.6 % (12.3-17.7); WHITE BLOOD COUNT (AUTO) 24.8 K/uL (3.8-11.8)
[2025-01-08 07:22] LABS: CREATININE 0.8 mg/dL (0.6-1.3); SODIUM SERUM 139.0 mmol/L (136-145); UREA NITROGEN, BLOOD 28.0 mg/dL (7-18)
[2025-01-08] MEDS: MAGNESIUM SULFATE/D5W 100 ML IV SCH (09:49)
[2025-01-08] MEDS: POTASSIUM CHLORIDE 20 MEQ POWDER PACKET GT ONE (09:50)
[2025-01-08] MEDS: FUROSEMIDE 20 MG/2 ML VIAL IV SCH (09:51)
[2025-01-08 16:19] VITALS: O2SAT 98
[2025-01-08] MEDS ORDERED: JEVITY 1.2 1000 ML LIQUID GT PRN (18:00)
[2025-01-08 19:15] VITALS: BP 99/62; TEMP 98.6; O2SAT 90
[2025-01-08] MEDS: HYDROCODONE/APAP 10-325 MG TABLET NG PRN (23:09)
[2025-01-09 00:08] VITALS: BP 96/47; TEMP 98; O2SAT 99
[2025-01-09] MEDS: MELATONIN 3 MG TABLET PO SCH (00:48)
[2025-01-09 05:20] VITALS: BP 97/62; TEMP 97.9; O2SAT 99
[2025-01-09] MEDS: MAGNESIUM HYDROXIDE 30 ML LIQUID UDC PO PRN (05:27)
[2025-01-09 07:10] LABS: PLATELET COUNT (AUTO) 393 K/uL (179-408); RED BLOOD CELL COUNT(AUTO) 3.02 MIL/uL (3.63-4.92); RED CELL DISTRIBUTION WIDTH 14.4 % (12.3-17.7); WHITE BLOOD COUNT (AUTO) 15.5 K/uL (3.8-11.8)
[2025-01-09 07:12] LABS: ASPARTATE AMINOTRANSFERASE 24.0 U/L (15-37); CREATININE 0.8 mg/dL (0.6-1.3); SODIUM SERUM 134.0 mmol/L (136-145); TOTAL PROTEIN, SERUM 6.9 g/dL (6.4-8.2); UREA NITROGEN, BLOOD 27.0 mg/dL (7-18)
[2025-01-09 07:43] VITALS: BP 96/58; TEMP 97.7; O2SAT 97
[2025-01-09 11:16] VITALS: BP 111/72; TEMP 98.2; O2SAT 97
[2025-01-09 15:19] VITALS: BP 105/70; TEMP 98.3; O2SAT 97
[2025-01-09 19:35] VITALS: BP 112/69; TEMP 99; O2SAT 98
[2025-01-09] MEDS: MELATONIN 3 MG TABLET GT SCH (20:41)
[2025-01-09] MEDS: MAGNESIUM HYDROXIDE 30 ML LIQUID UDC GT PRN (20:54)
[2025-01-10 00:15] VITALS: BP 132/78; TEMP 98.3; O2SAT 98
[2025-01-10 04:52] VITALS: BP 94/60; TEMP 97.9; O2SAT 99
[2025-01-10 06:55] LABS: PLATELET COUNT (AUTO) 334 K/uL (179-408); RED BLOOD CELL COUNT(AUTO) 2.83 MIL/uL (3.63-4.92); RED CELL DISTRIBUTION WIDTH 14.5 % (12.3-17.7); WHITE BLOOD COUNT (AUTO) 10.2 K/uL (3.8-11.8)
[2025-01-10 07:03] LABS: CREATININE 0.6 mg/dL (0.6-1.3); SODIUM SERUM 133.0 mmol/L (136-145); UREA NITROGEN, BLOOD 25.0 mg/dL (7-18)
[2025-01-10 07:08] LABS: ASPARTATE AMINOTRANSFERASE 24.0 U/L (15-37); TOTAL PROTEIN, SERUM 6.2 g/dL (6.4-8.2)
[2025-01-10 08:07] VITALS: BP 98/64; TEMP 97.9; O2SAT 99
[2025-01-10] MEDS: FUROSEMIDE 20 MG/2 ML VIAL IV SCH (08:52)
[2025-01-10] MEDS: JEVITY 1.2 1000 ML LIQUID GT PRN (09:04)
[2025-01-11] VITALS (7 sets, daily range): BP systolic 96–114; BP diastolic 50–70; TEMP 97.9–99.5; O2SAT 95–99
[2025-01-11 10:29] LABS: PLATELET COUNT (AUTO) 398 K/uL (179-408); RED BLOOD CELL COUNT(AUTO) 3.11 MIL/uL (3.63-4.92); RED CELL DISTRIBUTION WIDTH 14.3 % (12.3-17.7); WHITE BLOOD COUNT (AUTO) 9.6 K/uL (3.8-11.8)
[2025-01-11 10:40] LABS: CREATININE 0.7 mg/dL (0.6-1.3); SODIUM SERUM 135.0 mmol/L (136-145); UREA NITROGEN, BLOOD 32.0 mg/dL (7-18)
[2025-01-11] MEDS: SODIUM ZIRCONIUM CYCLOSILICATE 10 GM POWD.PACK GT ONE (12:38)
[2025-01-12 05:28] VITALS: BP 100/62; TEMP 98; O2SAT 99
[2025-01-12 07:50] VITALS: BP 127/72; TEMP 98.1; O2SAT 98
[2025-01-12 09:28] LABS: CREATININE 0.5 mg/dL (0.6-1.3); SODIUM SERUM 136.0 mmol/L (136-145); UREA NITROGEN, BLOOD 30.0 mg/dL (7-18)
[2025-01-12 12:27] VITALS: BP 106/57; TEMP 98; O2SAT 97
== END 2025-01-12 14:55 | DRG 720 ==
LOC: ER 20:09 → ICU IN 01-03 03:20 → CCU 01-03 14:06 → TELE-TD3 01-07 06:00 → TELE3 01-08 10:00
PROVIDERS: ADMIT Nurse Practitioner Acute Care; ATTEND Nurse Practitioner Acute Care
PROC: 5A1955Z Respiratory Ventilation, Greater than 96 Consecutive Hours (ICD-10-PCS; principal; 2025-01-03)
DX: A41.9 Sepsis, unspecified organism (principal); J95.851 Ventilator associated pneumonia; R65.21 Severe sepsis with septic shock; Z99.11 Dependence on respirator [ventilator] status; J69.0 Pneumonitis due to inhalation of food and vomit; R53.2 Functional quadriplegia; Z66 Do not resuscitate; R13.10 Dysphagia, unspecified; E44.0 Moderate protein-calorie malnutrition; G12.21 Amyotrophic lateral sclerosis; D63.8 Anemia in other chronic diseases classified elsewhere; Z93.0 Tracheostomy status; N39.0 Urinary tract infection, site not specified; Z93.1 Gastrostomy status; Z87.440 Personal history of urinary (tract) infections; Z93.6 Other artificial openings of urinary tract status; N31.9 Neuromuscular dysfunction of bladder, unspecified; G62.9 Polyneuropathy, unspecified; Z79.01 Long term (current) use of anticoagulants; Z86.718 Personal history of other venous thrombosis and embolism; Z79.899 Other long term (current) drug therapy; B96.4 Proteus (mirabilis) (morganii) as the cause of diseases classified elsewhere; R19.00 Intra-abdominal and pelvic swelling, mass and lump, unspecified site; F32.A Depression, unspecified; F41.9 Anxiety disorder, unspecified; Z90.49 Acquired absence of other specified parts of digestive tract; E66.9 Obesity, unspecified; E78.5 Hyperlipidemia, unspecified; D68.59 Other primary thrombophilia; E88.09 Other disorders of plasma-protein metabolism, not elsewhere classified; G89.29 Other chronic pain; J96.12 Chronic respiratory failure with hypercapnia; L60.0 Ingrowing nail; N17.9 Acute kidney failure, unspecified; J98.11 Atelectasis; J96.11 Chronic respiratory failure with hypoxia
CPT/HCPCS: 36415; 36600; 70030-TC; 71045; 74018; 82803; 83605; 83735; 84100; 85025; 85610; 85730; 87040; 87070; 87077; 87086; 93307; 94003; 94640; 94760; 99082-TC; A4606; A4663; A6213; G0378; J0456; J1650; J1938; J2185; J3373; J3475; J3480; J3590; J7040; J7050